=== PATIENT | male | born 1965 | race Caucasian/White ===

== ENCOUNTER 2016-12-03 10:13 | Inpatient (IN) | payer BC ==
[2016-12-03] MEDS ORDERED: SODIUM CHLORIDE 1,000 ML IV STA ×2 (10:41→17:10)
[2016-12-03] MEDS ORDERED: HYDROmorphone HCL CARPU-JECT 2 MG/1 ML DISP.SYRIN IVPUSH ONE (10:42)
[2016-12-03] MEDS ORDERED: ONDANSETRON 4 MG/2 ML VIAL IVPUSH ONE (10:42)
[2016-12-03] MEDS ORDERED: CLINDAMYCIN IVPB 300 MG in DEXTROSE 5%-WATER - 48 ML IVPB ONE (10:43)
[2016-12-03] MEDS ORDERED: DIPHTH,PERTUSS(ACELL),TET 0.5 ML DISP.SYRIN IM ONE (10:43)
--- NOTE | 2016-12-03 10:56 | PDOC ---
History of Present Illness - General Chief Complaint: Wound Stated Complaint: PAIN, PCP SENT Time Seen by Provider: 12/03/16 10:21 History Source: Patient Exam Limitations: No Limitations - History of Present Illness Initial Comments: 12/03/16 10:51 51-year-old male presents to the ED with worsening left third digit swelling redness and discomfort for the past week. Patient states went to [facility] yesterday, had an x-ray to rule out fracture since patient initially had a mechanical fall last week, sustaining a laceration. As per patient x-ray was negative and was given a prescription for clindamycin. As per patient did not fill his medication and she had called Dr. Ashley to notify him of the visit before then referred him to the ER secondary to the redness and discomfort. Patient does have history of liver failure Followed by Dr. Bhakta. Patient also states unknown last tetanus. Timing/Duration: getting worse Severity: moderate Associated Symptoms: reports: fever/chills (chills), nausea/vomiting Past History - Past Medical History Allergies/Adverse Reactions: Allergies Allergy/AdvReac Type Severity Reaction Status Date / Time No Known Allergies Allergy Verified 12/03/16 10:20 Home Medications: Ambulatory Orders Clindamycin [Cleocin -] 300 mg PO TID 12/03/16 Gabapentin 300 mg PO TID 12/03/16 Glimepiride [Amaryl] 1 mg PO DAILY 12/03/16 Nadolol 40 mg PO DAILY 12/03/16 Pantoprazole Sodium [Protonix] 40 mg PO DAILY 12/03/16 Rifaximin [Xifaxan] 550 mg PO BID 12/03/16 Spironolactone 50 mg PO BID 12/03/16 Tramadol HCl 50 mg PO BID PRN 12/03/16 HTN: Yes Liver Disease: (cirrhosis) - Psycho/Social/Smoking Cessation Hx Anxiety: No Suicidal Ideation: No Smoking History: Never smoked Have you smoked in the past 12 months: No Information on smoking cessation initiated: No Hx 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) Drug/Substance Use Hx: No Substance Use Type: None Patient Lives Alone: No Lives with/in: spouse/SO Review of Systems - Review of Systems Is the patient limited Sami proficient: Yes Constitutional: Yes: Chills HEENTM: No: Symptoms Reported Respiratory: No: Symptoms reported Cardiac (ROS): No: Symptoms Reported ABD/GI: Yes: Nausea Musculoskeletal: No: Symptoms Reported Integumentary: Yes: Erythema (with swelling) Neurological: No: Symptoms reported *Physical Exam - Vital Signs Last Vital Signs Temp Pulse Resp BP Pulse Ox 97.7 F 112 H 19 137/82 100 12/03/16 10:17 12/03/16 10:17 12/03/16 10:17 12/03/16 10:12/03/16 10:17 - Physical Exam General Appearance: Yes: Nourished, Appropriately Dressed. No: Apparent Distress HEENT: positive: EOMI, DHEERAJ, Scleral Icterus (R) (slight), Scleral Icterus (L) ( slight) Respiratory/Chest: positive: Lungs Clear, Normal Breath Sounds. negative: Respiratory Distress, Accessory Muscle Use Cardiovascular: positive: Regular Rhythm, Tachycardia. negative: Murmur Gastrointestinal/Abdominal: positive: Soft Integumentary: positive: Other (Patient with erythematous edematous left third digit extending to the dorsal aspect of left hand with streaking midway up. Patient with blanching to the tip of finger but with normal 2+ Refill. Patient unable to flex the finger secondary to swelling and discomfort. Patient with noted 1.5 cm linear healed laceration to the palmar aspect of the dip joint) Neurologic: positive: Motor Strength 5/5 ( ambulatory) ED Treatment Course - LABORATORY CBC & Chemistry Diagram: 12/03/16 11:20 12/03/16 11:55 - RADIOLOGY Radiology Studies Ordered: Category Date Time Status CHEST X-RAY PORTABLE* [RAD] Stat Radiology 12/03/16 10:41 Ordered Medical Decision Making - Medical Decision Making 12/03/16 11:01 Patient status post laceration to left third digit now with concern for cellulitis/sepsis. Patient ordered for septic workup including tetanus analgesics and antiemetics secondary to nausea and vomiting. Will consult Dr. Ashley shortly for admission 12/03/16 12:25 Laboratory Tests 12/03/16 11:20 WBC 14.6 H Hgb 9.4 L Hct 27.5 L Neutrophils % 65.7 Chest x-ray negative for acute findings. Case discussed with Dr. Ashley and states admitted to [facility] inpatient. Patient did receive clindamycin IV and is comfortable regards to pain and nausea. 12/03/16 16:10 Laboratory Tests 12/03/16 12/03/16 11:55 14:30 Sodium 132 L Lactic Acid 2.239 H* Patient ordered for second lactic acid along with another bag of IV fluids. *DC/Admit/Observation/Transfer Diagnosis at time of Disposition: Cellulitis Qualifiers: Site of cellulitis: extremity Site of cellulitis of extremity: finger Laterality: left Qualified Code(s): L03.012 - Cellulitis of left finger Leukocytosis Qualifiers: Leukocytosis type: unspecified Qualified Code(s): D72.829 - Elevated white blood cell count, unspecified - Discharge Dispostion Admit: Yes
--- NOTE | 2016-12-03 11:07 | PDOC ---
[id number] 137/82 100 12/03/16 10:17 12/03/16 10:17 12/03/16 10:17 12/03/16 10:17 12/03/16 10:17 - Physical Exam Comments: 12/03/16 11:07 Pt seen by the Advanced Practice Provider under my direct supervision Pt interviewed and examined Ancillary studies reviewed I agree with plan as outlined by the Advanced Practice Provider ED Treatment Course - LABORATORY CBC & Chemistry Diagram: 12/11/16 06:00 12/12/16 06:00 *DC/Admit/Observation/Transfer Diagnosis at time of Disposition: Cellulitis, Leukocytosis
[2016-12-03] MEDS ORDERED: HYDROmorphone HCL CARPU-JECT 1 MG/1 ML DISP.SYRIN ONE (11:23)
[2016-12-03] MEDS ORDERED: ONDANSETRON 4 MG/2 ML VIAL ONE (11:23)
[2016-12-03 11:35] LABS: BASOPHIL 1.3 % (0-2.0); EOSINOPHIL 2.5 % (0-4.5); MCHC 34.2 g/dl (32.0-35.9); MEAN CELL VOLUME 99.4 fl (80-96); MEAN PLT VOLUME 9.5 fl (7.5-11.1); NEUTROPHILS 65.7 % (42.8-82.8); RDW 14.5 % (11.9-15.9); WHITE BLOOD COUNT 14.6 K/mm3 (4.0-10.0)
[2016-12-03 11:50] LABS: VENOUS BLOOD GAS HCO3 22.8 meq/L (19-25); VENOUS PH 7.39 (7.32-7.42)
[2016-12-03 12:05] LABS: INR 2.07 (0.82-1.09); PROTHROMBIN TIME (PATIENT) 23.1 SEC (9.98-11.88)
[2016-12-03 12:06] LABS: URINE APPEARANCE CLEAR; URINE BILIRUBIN NEGATIVE (NEGATIVE); URINE COLOR YELLOW; URINE GLUCOSE (UA) NEGATIVE (NEGATIVE); URINE KETONE NEGATIVE (NEGATIVE); URINE LEUK ESTERASE NEGATIVE (NEGATIVE); URINE NITRITE NEGATIVE (NEGATIVE); URINE PROTEIN NEGATIVE (NEGATIVE); URINE UROBILINOGEN NEGATIVE E.U./dl (0.2-1.0)
[2016-12-03 12:07] LABS: ACTIVATED PTT 37.5 SECONDS (26.9-34.4)
[2016-12-03 12:28] LABS: URINE BLOOD 3+ (NEGATIVE)
[2016-12-03 12:32] LABS: GRANULAR CASTS 3 /lpf; URINE HYALINE CAST 10 /lpf; URINE RBC 31 /hpf (0-3); URINE WBC 1 /hpf (3-5)
[2016-12-03 13:09] LABS: ALBUMIN 2.2 g/dl (3.4-5.0); ANION GAP 8 (8-16); BILIRUBIN,TOTAL 4.4 mg/dL (0.2-1.0); CALCIUM 8.4 mg/dL (8.5-10.1); CO2 26 mmol/L (21-32); COCKROFT - GAULT 84.32; CREATININE 1.3 mg/dL (0.7-1.3); GLUCOSE,RANDOM 184 mg/dL (74-106); SGOT/AST 65 U/L (15-37); SGPT/ALT 23 U/L (12-78); TOT PROT 8.2 g/dl (6.4-8.2)
[2016-12-03 13:11] LABS: ALK PHOS 151 U/L (45-117); TROPONIN I < 0.02 ng/ml (0.00-0.05)
[2016-12-03 13:23] LABS: PLATELET COUNT 120 K/MM3 (134-434); PLATELET ESTIMATE DECREASED (NORMAL)
[2016-12-03] MEDS ORDERED: LACTULOSE 20 GM/30 ML UDC (FOR ORAL USE ONLY) PO PRN (15:36)
[2016-12-03] MEDS: oxyCODONE HCL 5 MG TABLET PO PRN ×2 (15:41→20:44)
--- NOTE | 2016-12-03 16:40 | CONSULT ---
Consultation: REQUESTING PROVIDER: CONSULT REQUEST: We have been asked to medically evaluate this patient for ( specify). HISTORY OF PRESENT ILLNESS: 51 year old male with a significant PMH of liver failure, cellulitis in lower extremities, HTN presents to the hospital complaining of worsening left third digit swelling, redness and pain for the past week. It got worse over the past 4 days. He fell on the ground one week ago and injured his hands. Left hand with 1 cm laceration on the palm and right hand bruising. Patient states went to [facility] yesterday and was given pain medications and prescription for Clindamycin, which he didn't take. He vomited in the evening and called Dr. Ashley who referred him to ED. Patient's states that he has been hospitalized this year for 2-3 months in [facility] for liver failure and alcohol intoxication. Patient also states unknown last tetanus. He denies fever , chills. He denies abdominal pain, dysuria, nausea, diarrhea, constipation. He denies recent travel, sick contacts and preparing fish. REVIEW OF SYSTEMS: CONSTITUTIONAL: Absent: fever, chills, diaphoresis, generalized weakness, malaise, loss of appetite, weight change HEENT: Absent: rhinorrhea, nasal congestion, throat pain, throat swelling, difficulty swallowing, mouth swelling, ear pain, eye pain, visual changes CARDIOVASCULAR: Absent: chest pain, syncope, palpitations, irregular heart rate, lightheadedness , peripheral edema RESPIRATORY: Absent: cough, shortness of breath, dyspnea with exertion, orthopnea, wheezing, stridor, hemoptysis GASTROINTESTINAL: Absent: abdominal pain, abdominal distension, nausea, vomiting, diarrhea, constipation, melena, hematochezia GENITOURINARY: Absent: dysuria, frequency, urgency, hesitancy, hematuria, flank pain, genital pain MUSCULOSKELETAL: pain and swelling in left hand. Absent:back pain, neck pain SKIN: Absent: rash, itching, pallor HEMATOLOGIC/IMMUNOLOGIC: easy bruising, Absent: easy bleeding, lymphadenopathy, frequent infections ENDOCRINE: Absent: unexplained weight gain, unexplained weight loss, heat intolerance, cold intolerance NEUROLOGIC: Absent: headache, focal weakness or paresthesias, dizziness PSYCHIATRIC: Absent: anxiety, depression PHYSICAL EXAMINATION GENERAL: Awake, alert, and fully oriented, in no acute distress. HEAD: Normal with no signs of trauma. EYES: Pupils equal, round and reactive to light, extraocular movements intact, sclera anicteric, conjunctiva clear. No lid lag. EARS, NOSE, THROAT: Ears normal, nares patent, oropharynx clear without exudates. Moist mucous membranes. NECK: Normal range of motion, supple without lymphadenopathy, JVD, or masses. LUNGS: Breath sounds equal, clear to auscultation bilaterally. No wheezes, and no crackles. No accessory muscle use. HEART: Regular rate and rhythm, normal S1 and S2 without murmur, rub or gallop. ABDOMEN: Soft, nontender, not distended, normoactive bowel sounds, no guarding, no rebound, no masses. Hepatomegaly present. MUSCULOSKELETAL: Normal range of motion at all joints. No bony deformities or tenderness. No CVA tenderness. UPPER EXTREMITIES: 2+ pulses, warm, well-perfused. No cyanosis. No clubbing. Cap refill <2 seconds. Left hand: swelling and redness around 3 finger on dorsal and palmar area, laceration on distal 3rd digit with clotted blood, no crepitus, tenderness to palpation, not able to flex or extend fingers due to pain. Right hand: bruising on palm around 32 and 3rd finger. LOWER EXTREMITIES: 2+ pulses, warm, well-perfused. No calf tenderness. No peripheral edema. NEUROLOGICAL: No facial asymmetry. Normal speech. Gait not observed. PSYCHIATRIC: Cooperative. Good eye contact. Appropriate mood and affect. SKIN: Warm, dry, normal turgor, no rashes or lesions noted. Laboratory Results - last 24 hr 12/03/16 14:30 Lactic Acid 2.239 H* Active Medications Generic Name Dose Route Start Last Admin Trade Name Freq PRN Reason Stop Dose Admin Folic Acid 1 mg 12/04/16 10:00 Folic Acid - PO DAILY VANITA Cefazolin Sodium 50 mls @ 100 mls/hr 12/03/16 18:00 Ancef 1gm Ivpb (Pre-Docked) IVPB Q8H-IV VANITA Lactulose 20 gm 12/03/16 15:36 Cephulac (Oral Use) PO TID PRN CONSTIPATION Nadolol 40 mg 12/04/16 10:00 Corgard - PO DAILY VANITA Oxycodone HCl 5 mg 12/03/16 15:17 12/03/16 15:41 Roxicodone - PO 5 mg Q6H PRN Administration PAIN Pantoprazole Sodium 20 mg 12/04/16 10:00 Protonix - PO DAILY VANITA Rifaximin 550 mg 12/03/16 22:00 Xifaxan - PO BID VANITA Spironolactone 25 mg 12/04/16 10:00 Aldactone - PO DAILY VANITA Thiamine HCl 100 mg 12/03/16 22:00 Vitamin B1 - PO HS [facility] ASSESSMENT/PLAN: 51 year old male with a significant PMH of liver failure, cellulitis in lower extremities, HTN presents to the hospital complaining of worsening left third digit swelling, redness and pain for the past week. It got worse over the past 4 days. He fell on the ground one week ago and injured his hands. He is admitted for cellulitis: Cellulitis of left hand: -we will start vancomycin and Cefepime IV -ESR and CRP history of fall: -x ray of left hand - consultation HTN: -continue home medications Liver cirrhosis: -GI consultation Dispo: We will continue to follow the patient. Thank you for this consultative opportunity. Problem List - Problems (1) Cellulitis Code(s): L03.90 - CELLULITIS, UNSPECIFIED Qualifiers: Site of cellulitis: extremity Site of cellulitis of extremity: finger Laterality: left Qualified Code(s): L03.012 - Cellulitis of left finger (2) Leukocytosis Code(s): D72.829 - ELEVATED WHITE BLOOD CELL COUNT, UNSPECIFIED Qualifiers: Leukocytosis type: unspecified Qualified Code(s): D72.829 - Elevated white blood cell count, unspecified (3) Liver cirrhosis Code(s): K74.60 - UNSPECIFIED CIRRHOSIS OF LIVER Visit type - Emergency Visit Emergency Visit: Yes ED Registration Date: 12/03/16 Care time: The patient presented to the Emergency Department on the above date and was hospitalized for further evaluation of their emergent condition. - New Patient This patient is new to me today: Yes Date on this admission: 12/03/16 - Critical Care Critical Care patient: No
[2016-12-03 16:45] VITALS: BMI 32.3
[2016-12-03] MEDS ORDERED: CEFEPIME HCL 1 GM VIAL (RESTRICTED TO ID) IVPB SCH (16:45)
[2016-12-03] MEDS ORDERED: CEFEPIME 1 GM/100 ML BAG PRE-DOCKED IVPB SCH (17:00)
[2016-12-03] MEDS ORDERED: VANCOMYCIN 1,250 MG in DEXTROSE 5%-WATER - 250 ML IVPB ONE (17:00)
--- NOTE | 2016-12-03 17:01 | PN ---
Teaching Attending Note Name of Resident: Stephanie Marino ATTENDING PHYSICIAN STATEMENT I saw and evaluated the patient. I reviewed the resident's note and discussed the case with the resident. I agree with the resident's findings and plan as documented. SUBJECTIVE: OBJECTIVE: ASSESSMENT AND PLAN: recently hospitialized at [facility] from August to October 31 - initially for cellulitis of both legs and then decompensated liver disease- home for one month tripped and fell on carpet at home last - developed a laceration on his left third finger- over the last several days finger has become swollen and painful-he went to [facility] ER yesterday and was given tramadol and po antibiotics which he vomited his PMD sent him to [facility] ED for eval he reports xray negative given clindamycin in ED hand/finger (3) left hand cellulitis with spread to the palm of his hand- xray of hand hand surgery consult vanco/zosyn esr/crp vanco trough liver cirrhosis- gi evaluation
--- NOTE | 2016-12-03 17:02 | CON.GI ---
Consult Consult Specialty:: GI Referred by:: Dr. Ashley Reason for Consultation:: Liver Cirrhosis - History of Present Illness Chief Complaint: "I have cellulitis on my hand" History of Present Illness: 51M admitted for evaluation of swelling along his left 2nd/3rd digit and his hand. He was seen at [facility] yesterday, placed on PO Abx. but vomited after he took it. He came to [facility] ER for further evaluation. He is followed by my colleague Dr. Deshawn Bhakta given his history of decompensated ETOH Cirrhosis. Dr. Bhakta last saw Mr. Gottlieb in office at which time he recommended Lasic 60mg PO BID, aldactone 25mg PO BID, Xifaxin 550mg PO BID, Lactulose 30cc PO BID, Nadolol 40mg PO daily and MVT/Thiamine/Folate daily. Dr. Bhakta's note also alludes to Mr. Gottlieb arranging to go up to [facility] [place] for liver transplant evaluation however his tells me that they have not heard from them as of yet and that "paperwork needed to be sent up there". Per Dr. Bhakta 's note Mr. Gottlieb's ASP tumor marker was normal in September of 2016 and that his MELD was 24 at one point. Bilirubin from 10/16 was 3.1. He denies abdominal pain, melena. He has never had an upper endoscopy. He does state having had a colonoscopy with Dr. Murguia over 5 years ago that was "OK".. He does describe occasional bright red blood on the toilet paper after strained bowel movements. He says that he has not had a drink since 08/18. - History Source History Provided By: Patient, Family Member, Medical Record Limitations to Obtaining History: No Limitations - Past Medical History Cardio/Vascular: Yes: HTN Gastrointestinal: Yes: Ascites Hepatobiliary: Yes: Cirrhosis (Alcohol induced), Other (History of severe alcoholic hepatitis, hepatic encephalopathy) Dermatology: Yes: Cellulitis (of LE ) - Past Surgical History Additional Surgical History: Pilonidal cyst removal - Alcohol/Substance Use Hx Alcohol Use: Yes (recovering alcoholic) History of Substance Use: reports: None - Smoking History Smoking history: Never smoked Have you smoked in the past 12 months: No - Social History Usual Living Arrangement: With Spouse Occupation: disabled Place of : [facility] History of Recent Travel: No Home Medications - Allergies Allergies/Adverse Reactions: Allergies Allergy/AdvReac Type Severity Reaction Status Date / Time No Known Allergies Allergy Verified 12/03/16 10:20 - Home Medications Home Medications: Ambulatory Orders Clindamycin [Cleocin -] 300 mg PO TID 12/03/16 Gabapentin 300 mg PO TID 12/03/16 Glimepiride [Amaryl] 1 mg PO DAILY 12/03/16 Nadolol 40 mg PO DAILY 12/03/16 Pantoprazole Sodium [Protonix] 40 mg PO DAILY 12/03/16 Rifaximin [Xifaxan] 550 mg PO BID 12/03/16 Spironolactone 50 mg PO BID 12/03/16 Tramadol HCl 50 mg PO BID PRN 12/03/16 Family Disease History - Family Disease History Other Family History: No family history of colorectal cancer or other GI malignancy Review of Systems - Review of Systems Constitutional: denies: Chills, Fever Cardiovascular: denies: Chest Pain Respiratory: denies: SOB Gastrointestinal: reports: Constipation. denies: Abdominal Pain, Diarrhea, Melena, Nausea, Rectal Bleeding, Vomiting, Vomiting Blood Physical Exam-GI Vital Signs: Vital Signs Temperature 97.4 F L 12/03/16 16:35 Pulse Rate 104 H 12/03/16 16:35 Respiratory Rate 18 12/03/16 16:35 Blood Pressure 135/70 12/03/16 16:35 O2 Sat by Pulse Oximetry (%) 99 12/03/16 16:35 Constitutional: Yes: Calm Eyes: Yes: Cataracts. No: Sclera Icterus Cardiovascular: Yes: Tachycardia. No: Murmur Respiratory: No: CTA Bilaterally Gastrointestinal Inspection: No: Distention ...Auscultate: Yes: Normoactive Bowel Sounds ...Palpate: No: Hepatomegaly, Splenomegaly, Tenderness ...Rectal Exam: Yes: Guaiac Positive (light brown stool, no melena) Edema: No (No LE edema) Edema: LUE: 1+ (erythematous 1st/2nd digit left hand) Neurological: Yes: Alert, Oriented. No: Asterixis Psychiatric: Yes: Alert, Oriented Labs: INR, PTT INR 2.07 (0.82-1.09) H 12/03/16 11:20 Hepatic Panel Total Bilirubin 4.4 mg/dL (0.2-1.0) H 12/03/16 11:55 AST 65 U/L (15-37) H 12/03/16 11:55 ALT 23 U/L (12-78) 12/03/16 11:55 Alkaline Phosphatase 151 U/L (45-117) H 12/03/16 11:55 Albumin 2.2 g/dl (3.4-5.0) L 12/03/16 11:55 CBC, BMP 12/03/16 11:20 12/03/16 11:55 MELD: 23 Imaging - Results Chest X-ray: Report Reviewed Assessment/Plan Decompensated alcoholic cirrhosis: MELD 23 Continue Rifaximin 550mg PO BID Aldactone 25mg PO BID Lactulose 30g BID Ordered abdominal US to eval for hepatoma Will need liver transplant eval at [facility] [place] Stressed the need for continued ETOH cessation On Nadolol 40mg daily Needs Q6M AFP tumor marker / Hepatic US LUE cellulitis: Abx per ID Guaiac + stool: No overt bleeding. ? from hemorrhoidal irritation from strained BM's Will need EGD / Colonoscopy for further evaluation as outpatient. Explained to patient and his
--- NOTE | 2016-12-03 17:20 | EKG ---
Test Reason : Blood Pressure : / mmHG Vent. Rate : 101 BPM Atrial Rate : 101 BPM P-R Int : 152 ms QRS Dur : 088 ms QT Int : 370 ms P-R-T Axes : 033 -03 027 degrees QTc Int : 479 ms SINUS TACHYCARDIA INFERIOR INFARCT , AGE UNDETERMINED ABNORMAL ECG NO PREVIOUS ECGS AVAILABLE Confirmed by DAVID RIZZO MD ([id number]) on 12/03/2016 5:19:51 PM Referred By: Confirmed By:DAVID RIZZO MD
[2016-12-03] MEDS ORDERED: CEFAZOLIN (PRE-DOCKED) 50 ML IVPB SCH (18:00)
[2016-12-03] MEDS: PIPERACILLIN/TAZOB 3.375 GM/50 ML PRE-DOCKED IVPB SCH ×2 (19:39→20:44)
[2016-12-03] MEDS: RIFAXIMIN 550 MG TABLET (UD) PO SCH (22:30)
[2016-12-03] MEDS: THIAMINE HCL 100 MG TABLET (FP) PO SCH (22:30)
[2016-12-04] MEDS: oxyCODONE HCL 5 MG TABLET PO PRN ×4 (02:13→20:57)
[2016-12-04] MEDS: PIPERACILLIN/TAZOB 3.375 GM/50 ML PRE-DOCKED IVPB SCH ×3 (03:52→19:14)
[2016-12-04 08:22] LABS: BASOPHIL 0.5 % (0-2.0); EOSINOPHIL 2.6 % (0-4.5); MCH 33.8 pg (25.7-33.7); MCHC 33.7 g/dl (32.0-35.9); MEAN CELL VOLUME 100.3 fl (80-96); MEAN PLT VOLUME 8.4 fl (7.5-11.1); NEUTROPHILS 64.5 % (42.8-82.8); PLATELET COUNT 85 K/MM3 (134-434); RDW 14.4 % (11.9-15.9); WHITE BLOOD COUNT 12.3 K/mm3 (4.0-10.0)
[2016-12-04 08:35] LABS: INR 2.48 (0.82-1.09); PROTHROMBIN TIME (PATIENT) 27.8 SEC (9.98-11.88)
[2016-12-04] MEDS: FOLIC ACID 1 MG TABLET (FP) PO SCH (10:01)
[2016-12-04] MEDS: RIFAXIMIN 550 MG TABLET (UD) PO SCH ×2 (10:01→21:53)
[2016-12-04] MEDS: PANTOPRAZOLE 20 MG TABLET (FP) PO SCH (10:01)
[2016-12-04] MEDS: SPIRONOLACTONE 25 MG TABLET (FP) PO SCH (10:01)
[2016-12-04] MEDS ORDERED: PT OWN MED DRAWER 7, Y5N ONE ×2 (10:03→14:34)
--- NOTE | 2016-12-04 10:07 | HP ---
Admitting History and Physical - Primary Care Physician PCP: Prakash Ashley - Admission Chief Complaint: third digit swelling and pain History of Present Illness: 51-year-old male presents to the ED with worsening left third digit swelling redness and discomfort for the past week. Patient states went to [facility] yesterday, had an x-ray to rule out fracture since patient initially had a mechanical fall last week, sustaining a laceration. As per patient x-ray was negative and was given a prescription for clindamycin. As per patient did not fill his medication and she had called Dr. Ashley to notify him of the visit before then referred him to the ER secondary to the redness and discomfort. Patient does have history of liver failure( decompensated ETOH cirrhosis) Followed by Dr. Bhakta. Patient also states unknown last tetanus. Timing/Duration: getting worse Severity: moderate Associated Symptoms: reports: fever/chills (chills), nausea/vomiting in ER noted to have elevated WBC got clindamycin and vancomycin elevated lactic acid History Source: Patient, Medical Record - Past Medical History Cardiovascular: Yes: HTN Gastrointestinal: Yes: Ascites Hepatobiliary: Yes: Cirrhosis (Alcohol induced), Other (History of severe alcoholic hepatitis, hepatic encephalopathy) Dermatology: Yes: Cellulitis (of LE ) - Smoking History Smoking history: Never smoked Have you smoked in the past 12 months: No - Alcohol/Substance Use Hx Alcohol Use: Yes (recovering alcoholic) History of Substance Use: reports: None - Social History Occupation: disabled History of Recent Travel: No Home Medications - Allergies Allergies/Adverse Reactions: Allergies Allergy/AdvReac Type Severity Reaction Status Date / Time No Known Allergies Allergy Verified 12/03/16 10:20 - Home Medications Home Medications: Ambulatory Orders Clindamycin [Cleocin -] 300 mg PO TID 12/03/16 Gabapentin 300 mg PO TID 12/03/16 Glimepiride [Amaryl] 1 mg PO DAILY 12/03/16 Nadolol 40 mg PO DAILY 12/03/16 Pantoprazole Sodium [Protonix] 40 mg PO DAILY 12/03/16 Rifaximin [Xifaxan] 550 mg PO BID 12/03/16 Spironolactone 50 mg PO BID 12/03/16 Tramadol HCl 50 mg PO BID PRN 12/03/16 Family Disease History - Family Disease History Other Family History: No family history of colorectal cancer or other GI malignancy Review of Systems - Review of Systems Musculoskeletal: reports: Extremity Pain (third digit pain) Physical Examination Vital Signs: Vital Signs Temperature 98.6 F 12/04/16 07:05 Pulse Rate 120 H 12/04/16 07:05 Respiratory Rate 20 12/04/16 07:05 Blood Pressure 112/58 12/04/16 07:05 O2 Sat by Pulse Oximetry (%) 99 12/03/16 21:00 Eyes: Yes: Other (scleral icterus) Cardiovascular: Yes: Regular Rate and Rhythm, S1, S2, Other Respiratory: Yes: CTA Bilaterally, Diminished (at bases) Gastrointestinal: Yes: Ascites, Distention Extremities: Yes: Other (venous stasis changes left hand third digit swollen erythematous warm to touch) Labs: CBC, BMP 12/04/16 06:30 Imaging - Results Ultrasound: Report Reviewed (liver cirhosis with spleenomegaly and asictes) Problem List - Problems (1) Cellulitis Assessment/Plan: ID eval noted iv abx monitor ESR Code(s): L03.90 - CELLULITIS, UNSPECIFIED Qualifiers: Site of cellulitis: extremity Site of cellulitis of extremity: finger Laterality: left Qualified Code(s): L03.012 - Cellulitis of left finger (2) Liver cirrhosis Assessment/Plan: gi saw patient aldactone lactulose nadalol rifaximin ultrasound shows liver cirrhosis and spleenomegaly patient needs to FU regarding liver transplant at [facility] Code(s): K74.60 - UNSPECIFIED CIRRHOSIS OF LIVER
[2016-12-04] MEDS: ACETAMINOPHEN 325 MG TABLET (FP) PO PRN ×2 (10:34→20:58)
--- NOTE | 2016-12-04 10:38 | CONSULT ---
Consult - text type - Consultation Consultation Note: FULL CONSULT DICTATED IMP: CELLULITIS RIGHT HAND PLAN: IV ABX PER ID, ELEVATION, WILL FOLLOW
--- NOTE | 2016-12-04 10:51 | EKG ---
Test Reason : Blood Pressure : / mmHG Vent. Rate : 121 BPM Atrial Rate : 121 BPM P-R Int : 144 ms QRS Dur : 086 ms QT Int : 324 ms P-R-T Axes : 063 023 075 degrees QTc Int : 460 ms SINUS TACHYCARDIA POSSIBLE INFERIOR INFARCT (CITED ON OR BEFORE 03-DEC-2016) NONSPECIFIC ST ABNORMALITY Confirmed by JESSICA LE MD ([id number]) on 12/04/2016 10:51:41 AM Referred By: EDEN BALLARD Confirmed By:JESSICA LE MD
[2016-12-04] MEDS: NADOLOL 40 MG TABLET (FP) PO SCH (11:22)
[2016-12-04 12:13] LABS: ALBUMIN 1.8 g/dl (3.4-5.0); ANION GAP 10 (8-16); BILIRUBIN,TOTAL 4.5 mg/dL (0.2-1.0); CALCIUM 7.9 mg/dL (8.5-10.1); CO2 23 mmol/L (21-32); COCKROFT - GAULT 121.79; CREATININE 0.9 mg/dL (0.7-1.3); GLUCOSE,RANDOM 162 mg/dL (74-106); SGOT/AST 59 U/L (15-37); SGPT/ALT 21 U/L (12-78)
[2016-12-04 12:15] LABS: ALK PHOS 109 U/L (45-117)
--- NOTE | 2016-12-04 13:30 | CONS ---
DATE OF CONSULTATION: 12/04/2016 HISTORY: The patient is a 51-year-old male status post fall about 1 week ago and sustained laceration on his right 3rd finger. The patient did not do anything about it until it got much more painful and swollen and went to [facility] yesterday. They gave him some p.o. antibiotics and sent him home. At the request of his medical doctor, he was sent to [facility] Emergency Room where he was found to have a very significant cellulitis and was admitted for IV antibiotics. The patient was placed on IV antibiotics yesterday and states that may be it is slightly better today. The patient is a [id number] diabetic. PAST MEDICAL HISTORY: Also significant for liver failure. He has had other episodes of cellulitis in his lower extremities, especially his right knee. He has a history of hypertension as well. The patient is right-hand dominant. PHYSICAL EXAMINATION: The patient has significant swelling of his left 3rd finger. He has an area of most intense cellulitis on the dorsum of his 3rd MCP towards the PIP joint. He does have erythema on the palmar surface of his MCP region towards the PIP region. No streaking or lymphangitis. Some of the cellulitis has spread towards the 2nd and 4th fingers closing in on their MCP regions both volarly and dorsally as well. He has moderate swelling dorsally. He has no deep space tenderness inside the hand. He can independently flex and extend the 3rd DIP, PIP, and MCP but only very minimally. He has no tenderness along the flexor sheath over the middle phalanx but some significant tenderness both dorsally and palmar surface over the proximal phalanx region. Good motion of the other fingers and of the wrist. Brisk capillary refill. The patient has a transverse palmar sided laceration at the level of the distal aspect of the middle phalanx, which appears to be healing uneventfully with no drainage and good sensation distally to that region. X-rays of the hand show no fractures, dislocation, or lymphoblastic lesions. WBC upon admission was 15, and it is now 12. The patient has blood cultures that are pending. IMPRESSION: Left 3rd finger and hand cellulitis. No evidence of a deep space infection at this time. PLAN: The patient will be placed on IV antibiotics as prescribed by Infectious Disease. Continue with elevation. I will follow the patient. FRAN AMARAL M.D. JONATHAN/[id number]
--- NOTE | 2016-12-04 13:40 | PN ---
Progress Note (short form) - Note Progress Note: hand about the same Vital Signs Period Temp Pulse Resp BP Sys/Palmer Pulse Ox Last 24 Hr 97.4 F-98.6 F 104-120 18-20 112-135/58-70 99-99 cor-rrr lungs clear abd soft,nt ext swelling of finger, erythema unchanged xray ?fracture Laboratory Tests 12/04/16 12/04/16 12/04/16 06:00 06:30 06:30 ESR 65 H C-Reactive Protein 1.7 H Random Vancomycin 6.457 CBC, BMP 12/04/16 06:30 12/04/16 06:30 Microbiology 12/03/16 11:44 Blood - Peripheral Venous Blood Culture - Preliminary NO GROWTH OBTAINED AFTER 24 HOURS, INCUBATION TO CONTINUE FOR 4 DAYS. 12/03/16 11:44 Blood - Peripheral Venous Blood Culture - Preliminary NO GROWTH OBTAINED AFTER 24 HOURS, INCUBATION TO CONTINUE FOR 4 DAYS. 12/03/16 11:44 Urine - Urine Clean Catch Urine Culture - Final Current Medications Acetaminophen (Tylenol -) 325 mg PO Q6H PRN PRN Reason: FEVER OR PAIN Last Admin: 12/04/16 10:34 Dose: 325 mg Folic Acid (Folic Acid -) 1 mg PO DAILY [facility] Last Admin: 12/04/16 10:01 Dose: 1 mg Vancomycin HCl 1,250 mg/ (Dextrose) 250 mls @ 250 mls/hr IVPB BID VANITA PRN Reason: Protocol Lactulose (Cephulac (Oral Use)) 20 gm PO BID COUNT INCLUDES [facility] Nadolol (Corgard -) 40 mg PO DAILY COUNT INCLUDES [facility] Last Admin: 12/04/16 11:22 Dose: 40 mg Oxycodone HCl (Roxicodone -) 5 mg PO Q6H PRN PRN Reason: PAIN Last Admin: 12/04/16 08:31 Dose: 5 mg Pantoprazole Sodium (Protonix -) 20 mg PO DAILY [facility]CLUDES [facility] Last Admin: 12/04/16 10:01 Dose: 20 mg Piperacillin Sod/Tazobactam Sod (Zosyn 3.375gm Ivpb (Pre-Docked)) 3.375 gm IVPB Q8H-IV VANITA PRN Reason: Protocol Last Admin: 12/04/16 10:02 Dose: 3.375 gm Rifaximin (Xifaxan -) 550 mg PO BID COUNT INCLUDES [facility] Last Admin: 12/04/16 10:01 Dose: 550 mg Spironolactone (Aldactone -) 25 mg PO DAILY [facility] Last Admin: 12/04/16 10:01 Dose: 25 mg Thiamine HCl (Vitamin B1 -) 100 mg PO HS COUNT [facility]CLUDES [facility] Last Admin: 12/03/16 22:30 Dose: 100 mg a/p cellullitis of the finger ?fracture needs ortho f/u continue vanco/zosyn f/u labs, vanco levels f/u cultures liver cirrhosis Problem List - Problems (1) Cellulitis Code(s): L03.90 - CELLULITIS, UNSPECIFIED Qualifiers: Site of cellulitis: extremity Site of cellulitis of extremity: finger Laterality: left Qualified Code(s): L03.012 - Cellulitis of left finger (2) Liver cirrhosis Code(s): K74.60 - UNSPECIFIED CIRRHOSIS OF LIVER
--- NOTE | 2016-12-04 16:41 | PN ---
GI Progress Note Subjective: GI NOte: left hand cellulitis improving. mentally clear. No overt bleeding to explain decrease in Hct. No abdominal pain. Remains jaundiced. Ascites on sonogram - Objective Vital Signs: Vital Signs Temperature 98.2 F 12/04/16 15:32 Pulse Rate 88 12/04/16 15:32 Respiratory Rate 20 12/04/16 15:32 Blood Pressure 120/66 12/04/16 15:32 O2 Sat by Pulse Oximetry (%) 99 12/04/16 09:00 CBC,CMP WBC 12.3 K/mm3 (4.0-10.0) H 12/04/16 06:30 RBC 2.21 M/mm3 (4.00-5.60) L 12/04/16 06:30 Hgb 7.5 GM/dL (11.7-16.9) L D 12/04/16 06:30 Hct 22.2 % (35.4-49) L D 12/04/16 06:30 MCV 100.3 fl (80-96) H 12/04/16 06:30 MCHC 33.7 g/dl (32.0-35.9) 12/04/16 06:30 RDW 14.4 % (11.9-15.9) 12/04/16 06:30 Plt Count 85 K/MM3 (134-434) L D 12/04/16 06:30 MPV 8.4 fl (7.5-11.1) D 12/04/16 06:30 Neutrophils % 64.5 % (42.8-82.8) 12/04/16 06:30 Lymphocytes % 22.6 % (8-40) 12/04/16 06:30 Monocytes % 9.8 % (3.8-10.2) 12/04/16 06:30 Eosinophils % 2.6 % (0-4.5) 12/04/16 06:30 Basophils % 0.5 % (0-2.0) 12/04/16 06:30 Platelet Estimate Decreased (NORMAL) 12/03/16 11:20 Platelet Comment No clumping noted 12/03/16 11:20 ESR 65 mm/hr (0-20) H 12/04/16 06:30 Sodium 134 mmol/L (136-145) L 12/04/16 06:30 Potassium 4.4 mmol/L (3.5-5.1) 12/04/16 06:30 Chloride 101 mmol/L (98-107) 12/04/16 06:30 Carbon Dioxide 23 mmol/L (21-32) 12/04/16 06:30 Anion Gap 10 (8-16) 12/04/16 06:30 BUN 19 mg/dL (7-18) H D 12/04/16 06:30 Creatinine 0.9 mg/dL (0.7-1.3) D 12/04/16 06:30 Creat Clearance w eGFR > 60 (>60) 12/04/16 06:30 POC Glucometer 180 UNITS (()) 12/04/16 07:04 Random Glucose 162 mg/dL (74-106) H 12/04/16 06:30 Lactic Acid 2.391 mmol/L (0.4-2.0) H* 12/03/16 19:00 Calcium 7.9 mg/dL (8.5-10.1) L 12/04/16 06:30 Total Bilirubin 4.5 mg/dL (0.2-1.0) H 12/04/16 06:30 AST 59 U/L (15-37) H 12/04/16 06:30 ALT 21 U/L (12-78) 12/04/16 06:30 Alkaline Phosphatase 109 U/L (45-117) D 12/04/16 06:30 Creatine Kinase 40 IU/L (39-308) 12/03/16 11:55 Troponin I < 0.02 ng/ml (0.00-0.05) 12/03/16 11:55 C-Reactive Protein 1.7 MG/DL (0.00-0.3) H 12/04/16 06:30 B-Natriuretic Peptide 1066.95 pg/ml (5-125) H 12/04/16 06:30 Total Protein 7.0 g/dl (6.4-8.2) 12/04/16 06:30 Albumin 1.8 g/dl (3.4-5.0) L 12/04/16 06:30 Constitutional: No Distress Eyes: Yes: Sclera Icterus HENT: Yes: Normocephalic Gastrointestinal Inspection: Yes: Distention ...Auscultate: Yes: Normoactive Bowel Sounds ...Palpate: Yes: Soft, Other (nontender) Labs: CBC, BMP 12/04/16 06:30 12/04/16 06:30 INR, PTT INR 2.48 (0.82-1.09) H 12/04/16 06:30 Laboratory Tests 12/03/16 12/04/16 12/04/16 11:20 06:30 06:30 Hgb 9.4 L 7.5 L D Plt Count 120 L 85 L D BUN 19 H D Creatinine 0.9 D Total Bilirubin 4.5 H Albumin 1.8 L Assessment/Plan Alcoholic cirrhosis with jaundice, ascites, thrombocytopenia and h/o encephalopathy that appears under control. Will increase spironolactone to BID. Dr Bhakta will be covering this weekend.
[2016-12-04] MEDS: VANCOMYCIN 1,250 MG in DEXTROSE 5%-WATER - 250 ML IVPB SCH (17:38)
[2016-12-04] MEDS: LACTULOSE 20 GM/30 ML UDC (FOR ORAL USE ONLY) PO SCH (21:53)
[2016-12-04] MEDS: THIAMINE HCL 100 MG TABLET (FP) PO SCH (21:53)
[2016-12-05] MEDS: PIPERACILLIN/TAZOB 3.375 GM/50 ML PRE-DOCKED IVPB SCH ×3 (01:25→17:52)
[2016-12-05] MEDS: VANCOMYCIN 1,250 MG in DEXTROSE 5%-WATER - 250 ML IVPB SCH ×2 (01:33→14:34)
[2016-12-05] MEDS: ACETAMINOPHEN 325 MG TABLET (FP) PO PRN ×4 (03:17→21:26)
[2016-12-05] MEDS: oxyCODONE HCL 5 MG TABLET PO PRN ×4 (03:18→21:27)
[2016-12-05 07:43] LABS: MCH 34.1 pg (25.7-33.7); MCHC 34.1 g/dl (32.0-35.9); MEAN CELL VOLUME 99.9 fl (80-96); PLATELET COUNT 89 K/MM3 (134-434); RDW 14.6 % (11.9-15.9); WHITE BLOOD COUNT 11.1 K/mm3 (4.0-10.0)
[2016-12-05 07:57] LABS: INR 2.23 (0.82-1.09); PROTHROMBIN TIME (PATIENT) 24.9 SEC (9.98-11.88)
[2016-12-05 08:27] LABS: CALCIUM 8.4 mg/dL (8.5-10.1); COCKROFT - GAULT 139.2; CREATININE 0.8 mg/dL (0.7-1.3)
[2016-12-05 08:28] LABS: ALBUMIN 1.8 g/dl (3.4-5.0); BILIRUBIN,DIRECT 1.9 mg/dL (0.0-0.2); BILIRUBIN,TOTAL 4.9 mg/dL (0.2-1.0); TOT PROT 7.3 g/dl (6.4-8.2)
[2016-12-05] MEDS: FOLIC ACID 1 MG TABLET (FP) PO SCH (09:19)
[2016-12-05] MEDS: LACTULOSE 20 GM/30 ML UDC (FOR ORAL USE ONLY) PO SCH ×2 (09:19→21:27)
[2016-12-05] MEDS: RIFAXIMIN 550 MG TABLET (UD) PO SCH ×2 (09:19→21:26)
[2016-12-05] MEDS: PANTOPRAZOLE 20 MG TABLET (FP) PO SCH (09:19)
[2016-12-05] MEDS: SPIRONOLACTONE 25 MG TABLET (FP) PO SCH (09:19)
[2016-12-05] MEDS ORDERED: PT OWN MED DRAWER 7, Y5N ONE ×2 (09:22→13:47)
[2016-12-05] MEDS: NADOLOL 40 MG TABLET (FP) PO SCH (09:23)
--- NOTE | 2016-12-05 09:37 | PN ---
Progress Note (short form) - Note Progress Note: ID Vancomycin and Zosyn Seen by Dr Hand Patient complaint related to hand pain Selected Entries 12/05/16 06:00 Temperature 97.9 F Pulse Rate 97 H Respiratory 18 Rate Blood Pressure 125/70 Hand swelling and finger with pustules noted no drainage seen erythema Tense swelling finger Report positive blood culture GPC clusters ?? Assessment Hand cellulitis Blood culture positive GPC clusters Cirrhosis Alcohol history Plan Continue Zosyn and Vanco Vanco level Await c/s Discussed Dr Gabi Rodgers MD
[2016-12-05] MEDS ORDERED: FUROSEMIDE 40 MG/4 ML INJECTABLE VIAL IVPUSH ONE ×2 (11:56→12:15)
--- NOTE | 2016-12-05 12:00 | PN ---
Progress Note, Physician History of Present Illness: C/O ITCHING - Current Medication List Current Medications: Active Medications Acetaminophen (Tylenol -) 325 mg PO Q6H PRN PRN Reason: FEVER OR PAIN Last Admin: 12/05/16 09:22 Dose: 325 mg Folic Acid (Folic Acid -) 1 mg PO DAILY [facility] Last Admin: 12/05/16 09:19 Dose: 1 mg Furosemide (Lasix Injection -) 40 mg IVPUSH ONCE ONE Stop: 12/05/16 11:57 Furosemide (Lasix Injection -) 40 mg IVPUSH ONCE ONE Stop: 12/05/16 11:57 Hydroxyzine HCl (Atarax -) 10 mg PO Q6H PRN PRN Reason: FOR ITCHING Vancomycin HCl 1,250 mg/ (Dextrose) 250 mls @ 250 mls/hr IVPB BID@0200,1400 VANITA PRN Reason: Protocol Last Admin: 12/05/16 01:33 Dose: 250 mls/hr Lactulose (Cephulac (Oral Use)) 20 gm PO BID [facility] Last Admin: 12/05/16 09:19 Dose: Not Given Nadolol (Corgard -) 40 mg PO DAILY [facility] Last Admin: 12/05/16 09:23 Dose: 40 mg Oxycodone HCl (Roxicodone -) 5 mg PO Q6H PRN PRN Reason: PAIN Last Admin: 12/05/16 09:18 Dose: 5 mg Pantoprazole Sodium (Protonix -) 20 mg PO DAILY [facility] Last Admin: 12/05/16 09:19 Dose: 20 mg Piperacillin Sod/Tazobactam Sod (Zosyn 3.375gm Ivpb (Pre-Docked)) 3.375 gm IVPB Q8H-IV VANITA PRN Reason: Protocol Last Admin: 12/05/16 09:19 Dose: 3.375 gm Rifaximin (Xifaxan -) 550 mg PO BID [facility] Last Admin: 12/05/16 09:19 Dose: 550 mg Spironolactone (Aldactone -) 25 mg PO DAILY [facility] Last Admin: 12/05/16 09:19 Dose: 25 mg Thiamine HCl (Vitamin B1 -) 100 mg PO HS [facility] Last Admin: 12/04/16 21:53 Dose: 100 mg - Objective Vital Signs: Vital Signs Temperature 97.9 F 12/05/16 06:00 Pulse Rate 101 H 12/05/16 09:27 Respiratory Rate 18 12/05/16 06:00 Blood Pressure 119/68 12/05/16 09:27 O2 Sat by Pulse Oximetry (%) 99 12/05/16 09:00 Cardiovascular: Yes: Regular Rate and Rhythm Respiratory: Yes: Regular, CTA Bilaterally Gastrointestinal: Yes: Normal Bowel Sounds, Soft, Ascites, Distention Labs: CBC, BMP 12/05/16 06:00 12/05/16 06:00 INR, PTT INR 2.23 (0.82-1.09) H 12/05/16 06:00 Problem List - Problems (1) Cellulitis Assessment/Plan: IV ABX ID AND ORTHO ON CASE Code(s): L03.90 - CELLULITIS, UNSPECIFIED Qualifiers: Site of cellulitis: extremity Site of cellulitis of extremity: finger Laterality: left Qualified Code(s): L03.012 - Cellulitis of left finger (2) Liver cirrhosis Assessment/Plan: gi saw patient aldactone lactulose nadalol rifaximin ultrasound shows liver cirrhosis and spleenomegaly patient needs to FU regarding liver transplant at [facility] Code(s): K74.60 - UNSPECIFIED CIRRHOSIS OF LIVER (3) Anemia Assessment/Plan: TRANSFUSE PRBC FOLLOW LABS Code(s): D64.9 - ANEMIA, UNSPECIFIED (4) Pruritic condition Code(s): L29.9 - PRURITUS, UNSPECIFIED
[2016-12-05] MEDS: hydrOXYzine HCL 10 MG TABLET PO PRN (13:48)
[2016-12-05] MEDS: THIAMINE HCL 100 MG TABLET (FP) PO SCH (21:26)
[2016-12-06] MEDS: VANCOMYCIN 1,250 MG in DEXTROSE 5%-WATER - 250 ML IVPB SCH ×2 (01:23→14:42)
[2016-12-06] MEDS: PIPERACILLIN/TAZOB 3.375 GM/50 ML PRE-DOCKED IVPB SCH ×3 (04:13→17:40)
[2016-12-06] MEDS: oxyCODONE HCL 5 MG TABLET PO PRN ×4 (04:13→22:16)
--- NOTE | 2016-12-06 07:14 | PN ---
Progress Note, Physician History of Present Illness: C/O ITCHING - Current Medication List Current Medications: Active Medications Acetaminophen (Tylenol -) 325 mg PO Q6H PRN PRN Reason: FEVER OR PAIN Last Admin: 12/05/16 21:26 Dose: 325 mg Folic Acid (Folic Acid -) 1 mg PO DAILY [facility] Last Admin: 12/05/16 09:19 Dose: 1 mg Hydroxyzine HCl (Atarax -) 10 mg PO Q6H PRN PRN Reason: FOR ITCHING Last Admin: 12/05/16 13:48 Dose: 10 mg Vancomycin HCl 1,250 mg/ (Dextrose) 250 mls @ 250 mls/hr IVPB BID@0200,1400 [facility] PRN Reason: Protocol Last Admin: 12/06/16 01:23 Dose: 250 mls/hr Lactulose (Cephulac (Oral Use)) 20 gm PO BID [facility] Last Admin: 12/05/16 21:27 Dose: Not Given Nadolol (Corgard -) 40 mg PO DAILY [facility] Last Admin: 12/05/16 09:23 Dose: 40 mg Oxycodone HCl (Roxicodone -) 5 mg PO Q6H PRN PRN Reason: PAIN Last Admin: 12/06/16 04:13 Dose: 5 mg Pantoprazole Sodium (Protonix -) 20 mg PO DAILY [facility] Last Admin: 12/05/16 09:19 Dose: 20 mg Piperacillin Sod/Tazobactam Sod (Zosyn 3.375gm Ivpb (Pre-Docked)) 3.375 gm IVPB Q8H-IV [facility]ITA PRN Reason: Protocol Last Admin: 12/06/16 04:13 Dose: 3.375 gm Rifaximin (Xifaxan -) 550 mg PO BID [facility] Last Admin: 12/05/16 21:26 Dose: 550 mg Spironolactone (Aldactone -) 25 mg PO DAILY [facility] Last Admin: 12/05/16 09:19 Dose: 25 mg Thiamine HCl (Vitamin B1 -) 100 mg PO HS [facility] Last Admin: 12/05/16 21:26 Dose: 100 mg - Objective Vital Signs: Vital Signs Temperature 98.8 F 12/05/16 17:17 Pulse Rate 88 12/05/16 17:17 Respiratory Rate 18 12/05/16 17:17 Blood Pressure 126/69 12/05/16 17:17 O2 Sat by Pulse Oximetry (%) 99 12/05/16 09:00 Cardiovascular: Yes: Regular Rate and Rhythm Respiratory: Yes: Regular, CTA Bilaterally Gastrointestinal: Yes: Normal Bowel Sounds, Soft, Distention Extremities: Yes: Erythema (and swelling) Labs: CBC, BMP 12/05/16 06:00 12/05/16 06:00 INR, PTT INR 2.23 (0.82-1.09) H 12/05/16 06:00 Problem List - Problems (1) Cellulitis Assessment/Plan: IV ABX ID AND ORTHO ON CASE Code(s): L03.90 - CELLULITIS, UNSPECIFIED Qualifiers: Site of cellulitis: extremity Site of cellulitis of extremity: finger Laterality: left Qualified Code(s): L03.012 - Cellulitis of left finger (2) Liver cirrhosis Assessment/Plan: gi saw patient aldactone lactulose nadalol rifaximin ultrasound shows liver cirrhosis and spleenomegaly patient needs to FU regarding liver transplant at [facility] Code(s): K74.60 - UNSPECIFIED CIRRHOSIS OF LIVER (3) Anemia Assessment/Plan: S/P TRANSFUSION PRBC FOLLOW LABS Code(s): D64.9 - ANEMIA, UNSPECIFIED (4) Pruritic condition Assessment/Plan: atarax prn Code(s): L29.9 - PRURITUS, UNSPECIFIED
--- NOTE | 2016-12-06 07:57 | PN ---
Progress Note, Physician Chief Complaint: ID Vancomycin and Zosyn No complaints - Current Medication List Current Medications: Active Medications Acetaminophen (Tylenol -) 325 mg PO Q6H PRN PRN Reason: FEVER OR PAIN Last Admin: 12/05/16 21:26 Dose: 325 mg Folic Acid (Folic Acid -) 1 mg PO DAILY [facility] Last Admin: 12/05/16 09:19 Dose: 1 mg Hydroxyzine HCl (Atarax -) 10 mg PO Q6H PRN PRN Reason: FOR ITCHING Last Admin: 12/05/16 13:48 Dose: 10 mg Vancomycin HCl 1,250 mg/ (Dextrose) 250 mls @ 250 mls/hr IVPB BID@0200,1400 VANITA PRN Reason: Protocol Last Admin: 12/06/16 01:23 Dose: 250 mls/hr Lactulose (Cephulac (Oral Use)) 20 gm PO BID [facility] Last Admin: 12/05/16 21:27 Dose: Not Given Nadolol (Corgard -) 40 mg PO DAILY [facility] Last Admin: 12/05/16 09:23 Dose: 40 mg Oxycodone HCl (Roxicodone -) 5 mg PO Q6H PRN PRN Reason: PAIN Last Admin: 12/06/16 04:13 Dose: 5 mg Pantoprazole Sodium (Protonix -) 20 mg PO DAILY [facility] Last Admin: 12/05/16 09:19 Dose: 20 mg Piperacillin Sod/Tazobactam Sod (Zosyn 3.375gm Ivpb (Pre-Docked)) 3.375 gm IVPB Q8H-IV [facility]ANITA PRN Reason: Protocol Last Admin: 12/06/16 04:13 Dose: 3.375 gm Rifaximin (Xifaxan -) 550 mg PO BID [facility] Last Admin: 12/05/16 21:26 Dose: 550 mg Spironolactone (Aldactone -) 25 mg PO DAILY [facility] Last Admin: 12/05/16 09:19 Dose: 25 mg Thiamine HCl (Vitamin B1 -) 100 mg PO HS [facility] Last Admin: 12/05/16 21:26 Dose: 100 mg - Objective Vital Signs: Vital Signs Temperature 98.7 F 12/06/16 07:31 Pulse Rate 97 H 12/06/16 07:31 Respiratory Rate 18 12/06/16 07:31 Blood Pressure 134/69 12/06/16 07:31 O2 Sat by Pulse Oximetry (%) 99 12/05/16 09:00 Extremities: Yes: Other (Decreased swelling redness of hand and finger though finger still quite tense) Labs: CBC, BMP 12/05/16 06:00 12/05/16 06:00 INR, PTT INR 2.23 (0.82-1.09) H 12/05/16 06:00 Assessment/Plan Microbiology 12/03/16 11:44 Blood - Peripheral Venous Blood Culture - Preliminary Pending Organism 12/03/16 11:44 Blood - Peripheral Venous Blood Culture - Preliminary NO GROWTH OBTAINED AFTER 24 HOURS, INCUBATION TO CONTINUE FOR 4 DAYS. Laboratory Tests 12/04/16 12/05/16 12/05/16 06:30 06:00 06:00 WBC 11.1 H Hgb 7.8 L Hct 23.0 L Plt Count 89 L ESR 65 H BUN Creatinine Lactic Acid 2.031 H* Direct Bilirubin AST ALT Alkaline Phosphatase Albumin Vancomycin Trough 12/05/16 12/05/16 12/05/16 06:00 06:00 13:00 WBC Hgb Hct Plt Count ESR BUN 17 Creatinine 0.8 Lactic Acid Direct Bilirubin 1.9 H AST 59 H ALT 22 Alkaline Phosphatase 118 H Albumin 1.8 L Vancomycin Trough 16.916 H* Assessment SSTI infection hand and finger improving 1/4 bottles GPC ?? Cirrhosis Anemia Plan Continue antibiotic Blood transfused Vanco level tomorrow Vishal WOODWARD
[2016-12-06 08:34] LABS: BASOPHIL 0.6 % (0-2.0); EOSINOPHIL 2.6 % (0-4.5); MCH 32.8 pg (25.7-33.7); MCHC 34.5 g/dl (32.0-35.9); MEAN CELL VOLUME 95.3 fl (80-96); MEAN PLT VOLUME 7.8 fl (7.5-11.1); NEUTROPHILS 65.5 % (42.8-82.8); PLATELET COUNT 91 K/MM3 (134-434); RDW 17.8 % (11.9-15.9); WHITE BLOOD COUNT 11.7 K/mm3 (4.0-10.0)
--- NOTE | 2016-12-06 08:47 | PN ---
Progress Note (short form) - Note Progress Note: MARKED IMPROVEMENT DECREASED SWELLING AND REDNESS PLAN: CONTINUE IV ABX PER ID
[2016-12-06 08:48] LABS: ALBUMIN 1.8 g/dl (3.4-5.0); CALCIUM 8.2 mg/dL (8.5-10.1)
[2016-12-06 08:54] LABS: ALK PHOS 115 U/L (45-117); ANION GAP 13 (8-16); BILIRUBIN,TOTAL 5.2 mg/dL (0.2-1.0); CO2 24 mmol/L (21-32); COCKROFT - GAULT 140.74; CREATININE 0.8 mg/dL (0.7-1.3); GLUCOSE,RANDOM 123 mg/dL (74-106); SGOT/AST 56 U/L (15-37); SGPT/ALT 20 U/L (12-78); TOT PROT 7.2 g/dl (6.4-8.2)
[2016-12-06] MEDS ORDERED: PT OWN MED DRAWER 7, Y5N ONE ×2 (09:03→14:07)
[2016-12-06] MEDS: SPIRONOLACTONE 25 MG TABLET (FP) PO SCH (09:08)
[2016-12-06] MEDS: FOLIC ACID 1 MG TABLET (FP) PO SCH (09:08)
[2016-12-06] MEDS: NADOLOL 40 MG TABLET (FP) PO SCH (09:08)
[2016-12-06] MEDS: RIFAXIMIN 550 MG TABLET (UD) PO SCH ×2 (09:08→22:15)
[2016-12-06] MEDS: LACTULOSE 20 GM/30 ML UDC (FOR ORAL USE ONLY) PO SCH ×2 (09:09→22:15)
[2016-12-06] MEDS: PANTOPRAZOLE 20 MG TABLET (FP) PO SCH (09:09)
[2016-12-06] MEDS: FUROSEMIDE 40 MG TABLET (FP) PO SCH (18:30)
[2016-12-06] MEDS: ACETAMINOPHEN 325 MG TABLET (FP) PO PRN (18:30)
[2016-12-06] MEDS: THIAMINE HCL 100 MG TABLET (FP) PO SCH (22:15)
[2016-12-06] MEDS: HYDROCORTISONE 1% TOPICAL CREAM 30 GM TUBE TP SCH (22:16)
[2016-12-07] MEDS: PIPERACILLIN/TAZOB 3.375 GM/50 ML PRE-DOCKED IVPB SCH ×3 (01:04→18:04)
[2016-12-07] MEDS: VANCOMYCIN 1,250 MG in DEXTROSE 5%-WATER - 250 ML IVPB SCH ×2 (01:45→13:24)
[2016-12-07] MEDS: FUROSEMIDE 40 MG TABLET (FP) PO SCH ×2 (06:10→18:02)
[2016-12-07 07:57] LABS: BASOPHIL 0.5 % (0-2.0); EOSINOPHIL 3.5 % (0-4.5); MCH 33.1 pg (25.7-33.7); MCHC 34.8 g/dl (32.0-35.9); MEAN CELL VOLUME 95.1 fl (80-96); MEAN PLT VOLUME 7.8 fl (7.5-11.1); NEUTROPHILS 52.1 % (42.8-82.8); RDW 17.9 % (11.9-15.9); WHITE BLOOD COUNT 11.9 K/mm3 (4.0-10.0)
[2016-12-07 08:17] LABS: ALBUMIN 1.8 g/dl (3.4-5.0); ANION GAP 11 (8-16); CALCIUM 8.2 mg/dL (8.5-10.1); CO2 26 mmol/L (21-32); COCKROFT - GAULT 127.88; CREATININE 0.9 mg/dL (0.7-1.3); GLUCOSE,RANDOM 117 mg/dL (74-106); SGOT/AST 54 U/L (15-37); SGPT/ALT 20 U/L (12-78)
[2016-12-07 08:19] LABS: ALK PHOS 109 U/L (45-117); BILIRUBIN,TOTAL 4.8 mg/dL (0.2-1.0); TOT PROT 7.4 g/dl (6.4-8.2)
--- NOTE | 2016-12-07 08:56 | PN ---
Addendum entered and electronically signed by Vitaly Barker PA 12/07/16 09:17: MRI to r/o abscess in right middle finger Original Note: Progress Note (short form) - Note Progress Note: Ortho Pt seen and examined with right hand/middle finger cellulitis slowly improving Selected Entries 12/07/16 06:00 Temperature 97.7 F Pulse Rate 92 H Respiratory 18 Rate Blood Pressure 135/71 Laboratory Tests 12/07/16 06:45 WBC 11.9 H Hgb 9.6 L Hct 27.7 L Plt Count Pending decr erythema, + swelling, limited rom nvi a/p Continue abx as per ID If no improvement over the next 24 hours will need I & D NPO after midnight in case pt needs I & D elevation d/w Dr. Hand
[2016-12-07] MEDS ORDERED: PT OWN MED DRAWER 7, Y5N ONE ×2 (09:38→13:21)
[2016-12-07] MEDS: SPIRONOLACTONE 25 MG TABLET (FP) PO SCH (09:45)
[2016-12-07] MEDS: LACTULOSE 20 GM/30 ML UDC (FOR ORAL USE ONLY) PO SCH ×2 (09:46→22:25)
[2016-12-07] MEDS: oxyCODONE HCL 5 MG TABLET PO PRN ×2 (09:47→16:49)
[2016-12-07] MEDS: NADOLOL 40 MG TABLET (FP) PO SCH (09:47)
[2016-12-07] MEDS: FOLIC ACID 1 MG TABLET (FP) PO SCH (09:47)
[2016-12-07] MEDS: PANTOPRAZOLE 20 MG TABLET (FP) PO SCH (09:47)
[2016-12-07] MEDS: ACETAMINOPHEN 325 MG TABLET (FP) PO PRN ×2 (09:48→16:50)
[2016-12-07] MEDS: RIFAXIMIN 550 MG TABLET (UD) PO SCH ×2 (09:50→22:14)
[2016-12-07] MEDS: HYDROCORTISONE 1% TOPICAL CREAM 30 GM TUBE TP SCH ×2 (09:51→22:16)
--- NOTE | 2016-12-07 10:29 | PN ---
Progress Note, Physician Chief Complaint: cellutlits of finger slowly improving to get MRI of hand today to look for abscess possible I/D tommorow if does not improve-patient does not want the procedure if not needed - Current Medication List Current Medications: Active Medications Acetaminophen (Tylenol -) 325 mg PO Q6H PRN PRN Reason: FEVER OR PAIN Last Admin: 12/07/16 09:48 Dose: 325 mg Folic Acid (Folic Acid -) 1 mg PO DAILY [facility] Last Admin: 12/07/16 09:47 Dose: 1 mg Furosemide (Lasix -) 80 mg PO BID@0600,1800 [facility] Hydrocortisone (Hytone 1% Cream -) 1 applic TP BID [facility] Last Admin: 12/07/16 09:51 Dose: 1 applic Hydroxyzine HCl (Atarax -) 10 mg PO Q6H PRN PRN Reason: FOR ITCHING Last Admin: 12/05/16 13:48 Dose: 10 mg Vancomycin HCl 1,250 mg/ (Dextrose) 250 mls @ 250 mls/hr IVPB BID@0200,1400 [facility] PRN Reason: Protocol Last Admin: 12/07/16 01:45 Dose: 250 mls/hr Lactulose (Cephulac (Oral Use)) 20 gm PO BID [facility] Last Admin: 12/07/16 09:46 Dose: Not Given Nadolol (Corgard -) 40 mg PO DAILY [facility] Last Admin: 12/07/16 09:47 Dose: 40 mg Oxycodone HCl (Roxicodone -) 5 mg PO Q6H PRN PRN Reason: PAIN Last Admin: 12/07/16 09:47 Dose: 5 mg Pantoprazole Sodium (Protonix -) 20 mg PO DAILY [facility] Last Admin: 12/07/16 09:47 Dose: 20 mg Piperacillin Sod/Tazobactam Sod (Zosyn 3.375gm Ivpb (Pre-Docked)) 3.375 gm IVPB Q8H-IV [facility] PRN Reason: Protocol Last Admin: 12/07/16 09:50 Dose: 3.375 gm Rifaximin (Xifaxan -) 550 mg PO BID [facility] Last Admin: 12/07/16 09:50 Dose: 550 mg Spironolactone (Aldactone -) 25 mg PO DAILY [facility] Last Admin: 12/07/16 09:45 Dose: 25 mg Thiamine HCl (Vitamin B1 -) 100 mg PO HS [facility] Last Admin: 12/06/16 22:15 Dose: 100 mg - Objective Vital Signs: Vital Signs Temperature 97.7 F 12/07/16 06:00 Pulse Rate 92 H 12/07/16 06:00 Respiratory Rate 18 12/07/16 06:00 Blood Pressure 135/71 12/07/16 06:00 O2 Sat by Pulse Oximetry (%) 98 12/06/16 21:00 Constitutional: Yes: Calm Eyes: Yes: Sclera Icterus Cardiovascular: Yes: Regular Rate and Rhythm, S1, S2 Respiratory: Yes: CTA Bilaterally Gastrointestinal: Yes: Soft, Ascites Musculoskeletal: Yes: Other (finger swelling and erythema improving) Edema: Yes Labs: CBC, BMP 12/07/16 06:45 12/07/16 06:45 INR, PTT INR 2.23 (0.82-1.09) H 12/05/16 06:00 Problem List - Problems (1) Cellulitis Assessment/Plan: Iv antibiotic possible I/D if doesnot improve MRI of finger today to look for abscess Code(s): L03.90 - CELLULITIS, UNSPECIFIED Qualifiers: Site of cellulitis: extremity Site of cellulitis of extremity: finger Laterality: left Qualified Code(s): L03.012 - Cellulitis of left finger (2) Liver cirrhosis Assessment/Plan: gi saw patient aldactone lactulose nadalol rifaximin ultrasound shows liver cirrhosis and spleenomegaly patient needs to FU regarding liver transplant at [facility] Code(s): K74.60 - UNSPECIFIED CIRRHOSIS OF LIVER (3) Pruritic condition Assessment/Plan: atarax prn Code(s): L29.9 - PRURITUS, UNSPECIFIED (4) Leg edema Assessment/Plan: lasix dose 80mg po bid Code(s): R60.0 - LOCALIZED EDEMA Qualifiers: Laterality: bilateral Qualified Code(s): R60.0 - Localized edema
[2016-12-07] MEDS: hydrOXYzine HCL 10 MG TABLET PO PRN (13:24)
--- NOTE | 2016-12-07 15:15 | PN ---
GI Progress Note Subjective: No focal GI complaints continued on IV Abx per ID and being evaluated by ortho for left 3rd digit cellulitis gained weight during admission Believes that he had an appointment to see Dr. Barajas, transplant attending @ [facility] today however couldn't make it due to current hospitalization - Objective Vital Signs: Vital Signs Temperature 98.4 F 12/07/16 14:47 Pulse Rate 88 12/07/16 14:47 Respiratory Rate 16 12/07/16 14:47 Blood Pressure 140/68 12/07/16 14:47 O2 Sat by Pulse Oximetry (%) 98 12/06/16 21:00 Constitutional: Calm Eyes: Yes: Sclera Icterus Cardiovascular: Yes: Regular Rate and Rhythm Respiratory: Yes: CTA Bilaterally Gastrointestinal Inspection: Yes: Distention ...Auscultate: Yes: Normoactive Bowel Sounds ...Palpate: No: Tenderness Edema: Yes Edema: LLE: 1+, RLE: 1+ Neurological: Yes: Alert, Oriented. No: Asterixis Labs: CBC, BMP 12/07/16 06:45 12/07/16 06:45 INR, PTT INR 2.23 (0.82-1.09) H 12/05/16 06:00 Hepatic Panel Total Bilirubin 4.8 mg/dL (0.2-1.0) H 12/07/16 06:45 Direct Bilirubin 1.9 mg/dL (0.0-0.2) H 12/05/16 06:00 AST 54 U/L (15-37) H 12/07/16 06:45 ALT 20 U/L (12-78) 12/07/16 06:45 Alkaline Phosphatase 109 U/L (45-117) 12/07/16 06:45 Albumin 1.8 g/dl (3.4-5.0) L 12/07/16 06:45 Problem List - Problems (1) Alcoholic cirrhosis Assessment/Plan: Lasix restarted 80mg PO BID: Daily weights / I's and O's Increase aldactone to 50mg PO daily Q 6 month AFP tumor marker / US to screen for hepatoma Continue rifaximin / lactulose Needs f/u for xplant evaluation @ [facility] once acute issues are resolved Code(s): K70.30 - ALCOHOLIC CIRRHOSIS OF LIVER WITHOUT ASCITES
[2016-12-07 15:43] LABS: PLATELET COUNT 98 K/MM3 (134-434); PLATELET ESTIMATE DECREASED (NORMAL)
--- NOTE | 2016-12-07 16:17 | PN ---
Progress Note (short form) - Note Progress Note: hand erythema improved has localized to the finger which remains red and swollen Vital Signs Period Temp Pulse Resp BP Sys/Palmer Pulse Ox Last 24 Hr 97.3 F-98.4 F 85-93 16-18 122-140/59-71 98 cor-rrr lungs clear abd soft,nt hand decreased erythema, finger is red and swollen ext +edema CBC, BMP 12/07/16 06:45 12/07/16 06:45 Microbiology 12/03/16 11:44 Blood - Peripheral Venous Blood Culture - Preliminary Staphylococcus Coagulase Neg 12/03/16 11:44 Blood - Peripheral Venous Blood Culture - Preliminary NO GROWTH OBTAINED AFTER 96 HOURS, INCUBATION TO CONTINUE FOR 1 DAYS. 12/03/16 11:44 Urine - Urine Clean Catch Urine Culture - Final a/p cellullitis of the finger-r/o fracture agree with plans for MRI and possible drainage ortho f/u ongoing continue vanco/zosyn repeat vancomycin trough in am (ordered) blood culture isolate is contaminant liver cirrhosis-diuretics resumed Problem List - Problems (1) Cellulitis Code(s): L03.90 - CELLULITIS, UNSPECIFIED Qualifiers: Site of cellulitis: extremity Site of cellulitis of extremity: finger Laterality: left Qualified Code(s): L03.012 - Cellulitis of left finger (2) Liver cirrhosis Code(s): K74.60 - UNSPECIFIED CIRRHOSIS OF LIVER
[2016-12-07] MEDS ORDERED: HYDROmorphone HCL CARPU-JECT 1 MG/1 ML DISP.SYRIN IVPB ONE (22:00)
[2016-12-07] MEDS: THIAMINE HCL 100 MG TABLET (FP) PO SCH (22:14)
[2016-12-08] MEDS: PIPERACILLIN/TAZOB 3.375 GM/50 ML PRE-DOCKED IVPB SCH ×3 (02:14→17:46)
[2016-12-08] MEDS: VANCOMYCIN 1,250 MG in DEXTROSE 5%-WATER - 250 ML IVPB SCH ×2 (02:14→13:45)
[2016-12-08] MEDS: ACETAMINOPHEN 325 MG TABLET (FP) PO PRN ×4 (03:00→21:08)
[2016-12-08] MEDS: oxyCODONE HCL 5 MG TABLET PO PRN ×4 (03:02→21:07)
[2016-12-08] MEDS: FUROSEMIDE 40 MG TABLET (FP) PO SCH ×2 (06:18→17:45)
[2016-12-08 08:39] LABS: ALBUMIN 1.7 g/dl (3.4-5.0); ALK PHOS 124 U/L (45-117); ANION GAP 10 (8-16); BILIRUBIN,TOTAL 3.7 mg/dL (0.2-1.0); CALCIUM 7.7 mg/dL (8.5-10.1); CO2 25 mmol/L (21-32); CREATININE 0.9 mg/dL (0.7-1.3); GLUCOSE,RANDOM 111 mg/dL (74-106); SGOT/AST 53 U/L (15-37); SGPT/ALT 19 U/L (12-78); TOT PROT 7.2 g/dl (6.4-8.2)
[2016-12-08] MEDS ORDERED: PT OWN MED DRAWER 7, Y5N ONE ×2 (09:12→13:35)
[2016-12-08] MEDS: SPIRONOLACTONE 25 MG TABLET (FP) PO SCH (09:16)
[2016-12-08] MEDS: LACTULOSE 20 GM/30 ML UDC (FOR ORAL USE ONLY) PO SCH ×2 (09:17→21:06)
[2016-12-08] MEDS: NADOLOL 40 MG TABLET (FP) PO SCH (09:17)
[2016-12-08] MEDS: PANTOPRAZOLE 20 MG TABLET (FP) PO SCH (09:18)
[2016-12-08] MEDS: FOLIC ACID 1 MG TABLET (FP) PO SCH (09:18)
[2016-12-08] MEDS: MULTIVITAMINS (DAILY MVI) TABLET (FP) PO SCH (09:19)
[2016-12-08] MEDS: RIFAXIMIN 550 MG TABLET (UD) PO SCH ×2 (09:20→21:07)
[2016-12-08] MEDS: HYDROCORTISONE 1% TOPICAL CREAM 30 GM TUBE TP SCH ×2 (09:21→21:06)
--- NOTE | 2016-12-08 10:29 | PN ---
Progress Note, Physician Chief Complaint: patient in NPO on iv vanco MRI of hand was done possible infectious tensosynovitis possible phlegmon - Current Medication List Current Medications: Active Medications Acetaminophen (Tylenol -) 325 mg PO Q6H PRN PRN Reason: FEVER OR PAIN Last Admin: 12/08/16 09:19 Dose: 325 mg Folic Acid (Folic Acid -) 1 mg PO DAILY [facility] Last Admin: 12/08/16 09:18 Dose: 1 mg Furosemide (Lasix -) 80 mg PO BID@0600,1800 [facility] Last Admin: 12/08/16 06:18 Dose: 80 mg Hydrocortisone (Hytone 1% Cream -) 1 applic TP BID [facility] Last Admin: 12/08/16 09:21 Dose: 1 applic Hydroxyzine HCl (Atarax -) 10 mg PO Q6H PRN PRN Reason: FOR ITCHING Last Admin: 12/07/16 13:24 Dose: 10 mg Vancomycin HCl 1,250 mg/ (Dextrose) 250 mls @ 250 mls/hr IVPB BID@0200,1400 [facility] PRN Reason: Protocol Last Admin: 12/08/16 02:14 Dose: 250 mls/hr Lactulose (Cephulac (Oral Use)) 20 gm PO BID [facility] Last Admin: 12/08/16 09:17 Dose: Not Given Multivitamins/Minerals/Vitamin C (Tab-A-Vit -) 1 tab PO DAILY [facility] Last Admin: 12/08/16 09:19 Dose: 1 tab Nadolol (Corgard -) 40 mg PO DAILY [facility] Last Admin: 12/08/16 09:17 Dose: 40 mg Oxycodone HCl (Roxicodone -) 5 mg PO Q6H PRN PRN Reason: PAIN Last Admin: 12/08/16 09:18 Dose: 5 mg Pantoprazole Sodium (Protonix -) 20 mg PO DAILY [facility] Last Admin: 12/08/16 09:18 Dose: 20 mg Piperacillin Sod/Tazobactam Sod (Zosyn 3.375gm Ivpb (Pre-Docked)) 3.375 gm IVPB Q8H-IV [facility] PRN Reason: Protocol Last Admin: 12/08/16 09:20 Dose: 3.375 gm Rifaximin (Xifaxan -) 550 mg PO BID [facility] Last Admin: 12/08/16 09:20 Dose: 550 mg Spironolactone (Aldactone -) 50 mg PO DAILY [facility] Last Admin: 12/08/16 09:16 Dose: 50 mg Thiamine HCl (Vitamin B1 -) 100 mg PO HS [facility] Last Admin: 12/07/16 22:14 Dose: 100 mg - Objective Vital Signs: Vital Signs Temperature 98.2 F 12/08/16 06:00 Pulse Rate 91 H 12/08/16 06:00 Respiratory Rate 20 12/08/16 06:00 Blood Pressure 135/76 12/08/16 06:00 O2 Sat by Pulse Oximetry (%) 100 12/07/16 21:00 Constitutional: Yes: Calm Eyes: Yes: Sclera Icterus Cardiovascular: Yes: Regular Rate and Rhythm, S1, S2 Respiratory: Yes: CTA Bilaterally Gastrointestinal: Yes: Soft, Ascites Edema: Yes (less today) Neurological: Yes: Alert, Oriented Labs: CBC, BMP 12/07/16 06:45 12/08/16 06:30 INR, PTT INR 2.23 (0.82-1.09) H 12/05/16 06:00 Problem List - Problems (1) Cellulitis Assessment/Plan: NPO Iv antibiotic MRI done possible synovitis and phelgmon with soft tissue edema tavia get ortho to see patient - as patient wants to eat Code(s): L03.90 - CELLULITIS, UNSPECIFIED Qualifiers: Site of cellulitis: extremity Site of cellulitis of extremity: finger Laterality: left Qualified Code(s): L03.012 - Cellulitis of left finger (2) Liver cirrhosis Assessment/Plan: gi saw patient aldactone lactulose nadalol rifaximin ultrasound shows liver cirrhosis and spleenomegaly patient needs to FU regarding liver transplant at [facility] Code(s): K74.60 - UNSPECIFIED CIRRHOSIS OF LIVER (3) Pruritic condition Assessment/Plan: atarax prn Code(s): L29.9 - PRURITUS, UNSPECIFIED (4) Leg edema Assessment/Plan: lasix dose 80mg po bid improving Code(s): R60.0 - LOCALIZED EDEMA
--- NOTE | 2016-12-08 10:30 | PN ---
Progress Note (short form) - Note Progress Note: hand erythema improved has localized to the finger which remains red and swollen Vital Signs Period Temp Pulse Resp BP Sys/Palmer Pulse Ox Last 24 Hr 98 F-98.9 F 88-95 16-20 125-143/68-78 100 cor-rrr lungs clear abd soft,nt hand decreased erythema, finger is red and swollen ext +edema CBC, BMP 12/07/16 06:45 12/08/16 06:30 Microbiology 12/03/16 11:44 Blood - Peripheral Venous Blood Culture - Preliminary Staphylococcus Epidermidis 12/03/16 11:44 Blood - Peripheral Venous Blood Culture - Preliminary NO GROWTH OBTAINED AFTER 96 HOURS, INCUBATION TO CONTINUE FOR 1 DAYS. 12/03/16 11:44 Urine - Urine Clean Catch Urine Culture - Final a/p cellullitis of the finger-r/o fracture f/u MRI f/u with ortho continue vanco/zosyn repeat vancomycin trough today (ordered) blood culture isolate is contaminant liver cirrhosis-diuretics resumed Problem List - Problems (1) Cellulitis Code(s): L03.90 - CELLULITIS, UNSPECIFIED Qualifiers: Site of cellulitis: extremity Site of cellulitis of extremity: finger Laterality: left Qualified Code(s): L03.012 - Cellulitis of left finger (2) Liver cirrhosis Code(s): K74.60 - UNSPECIFIED CIRRHOSIS OF LIVER
[2016-12-08] MEDS ORDERED: DEXTROSE 5%-0.45% SALINE 1,000 ML IV SCH (11:25)
--- NOTE | 2016-12-08 15:17 | PN ---
Progress Note (short form) - Note Progress Note: Pt seen and examined. Middle finger is much improved as per the pt and my partner. Area of erythema, swelling, cellulitis demarcation all much improved. Has been on antibiotics for 4 days. ROM is improved and less painful. FDS, FDP, EDC all intact. Still with an area of tense swelling over the volar aspect of the middle finger middle phalanx. No obvious signs of flexor tendon sheath infection. No tenderness over the dorsal aspect. NVI Good capillary refill. No drainage. MRI See report. In my opinion it doesn't show a significant abscess or collection of pus to evacuate surgically. Imp Improving middle finger cellulitis and deep infection. Much improved on IV antibiotics. Rec I am not recommending an I & D surgery at this time. Con't elevation, IV abx, ROM exercises on his own. The patient is adamantly refusing surgery at this time, and for tomorrow, anyway. Will F/U tomorrow
[2016-12-08] MEDS: THIAMINE HCL 100 MG TABLET (FP) PO SCH (21:06)
[2016-12-09] MEDS ORDERED: PT OWN MED DRAWER 7, Y5N ONE ×2 (02:05→09:40)
[2016-12-09] MEDS: VANCOMYCIN 1,250 MG in DEXTROSE 5%-WATER - 250 ML IVPB SCH (02:18)
[2016-12-09] MEDS: PIPERACILLIN/TAZOB 3.375 GM/50 ML PRE-DOCKED IVPB SCH ×3 (02:18→18:00)
[2016-12-09] MEDS: ACETAMINOPHEN 325 MG TABLET (FP) PO PRN ×3 (03:01→21:02)
[2016-12-09] MEDS: oxyCODONE HCL 5 MG TABLET PO PRN ×4 (03:01→21:04)
[2016-12-09] MEDS: FUROSEMIDE 40 MG TABLET (FP) PO SCH ×2 (06:34→18:00)
--- NOTE | 2016-12-09 08:34 | PN ---
Progress Note, Physician History of Present Illness: FINGER WITH LESS PAIN PT REFUSING SURGERY AT THIS TIME - Current Medication List Current Medications: Active Medications Acetaminophen (Tylenol -) 325 mg PO Q6H PRN PRN Reason: FEVER OR PAIN Last Admin: 12/09/16 03:01 Dose: 325 mg Folic Acid (Folic Acid -) 1 mg PO DAILY [facility] Last Admin: 12/08/16 09:18 Dose: 1 mg Furosemide (Lasix -) 80 mg PO BID@0600,1800 [facility] Last Admin: 12/09/16 06:34 Dose: 80 mg Hydrocortisone (Hytone 1% Cream -) 1 applic TP BID [facility] Last Admin: 12/08/16 21:06 Dose: 1 applic Hydroxyzine HCl (Atarax -) 10 mg PO Q6H PRN PRN Reason: FOR ITCHING Last Admin: 12/07/16 13:24 Dose: 10 mg Vancomycin HCl 1,250 mg/ (Dextrose) 250 mls @ 250 mls/hr IVPB BID@0200,1400 [facility] PRN Reason: Protocol Last Admin: 12/09/16 02:18 Dose: 250 mls/hr Lactulose (Cephulac (Oral Use)) 20 gm PO BID [facility] Last Admin: 12/08/16 21:06 Dose: Not Given Multivitamins/Minerals/Vitamin C (Tab-A-Vit -) 1 tab PO DAILY [facility] Last Admin: 12/08/16 09:19 Dose: 1 tab Nadolol (Corgard -) 40 mg PO DAILY [facility] Last Admin: 12/08/16 09:17 Dose: 40 mg Oxycodone HCl (Roxicodone -) 5 mg PO Q6H PRN PRN Reason: PAIN Last Admin: 12/09/16 03:01 Dose: 5 mg Pantoprazole Sodium (Protonix -) 20 mg PO DAILY [facility] Last Admin: 12/08/16 09:18 Dose: 20 mg Piperacillin Sod/Tazobactam Sod (Zosyn 3.375gm Ivpb (Pre-Docked)) 3.375 gm IVPB Q8H-IV [facility] PRN Reason: Protocol Last Admin: 12/09/16 02:18 Dose: 3.375 gm Rifaximin (Xifaxan -) 550 mg PO BID [facility] Last Admin: 12/08/16 21:07 Dose: 550 mg Spironolactone (Aldactone -) 50 mg PO DAILY [facility] Last Admin: 12/08/16 09:16 Dose: 50 mg Thiamine HCl (Vitamin B1 -) 100 mg PO HS [facility] Last Admin: 12/08/16 21:06 Dose: 100 mg - Objective Vital Signs: Vital Signs Temperature 98.7 F 12/09/16 06:34 Pulse Rate 100 H 12/09/16 06:34 Respiratory Rate 20 12/09/16 06:34 Blood Pressure 125/74 12/09/16 06:34 O2 Sat by Pulse Oximetry (%) 100 12/08/16 21:00 Cardiovascular: Yes: Regular Rate and Rhythm Respiratory: Yes: Regular, CTA Bilaterally Gastrointestinal: Yes: Normal Bowel Sounds, Soft, Ascites Extremities: Yes: Erythema (AND EDEMA OF MIDDLE FINGER) Labs: CBC, BMP 12/07/16 06:45 12/08/16 06:30 INR, PTT INR 2.23 (0.82-1.09) H 12/05/16 06:00 Problem List - Problems (1) Cellulitis Assessment/Plan: IV ABX ID AND ORTHO ON CASE Code(s): L03.90 - CELLULITIS, UNSPECIFIED Qualifiers: Site of cellulitis: extremity Site of cellulitis of extremity: finger Laterality: left Qualified Code(s): L03.012 - Cellulitis of left finger (2) Liver cirrhosis Assessment/Plan: gi saw patient aldactone lactulose nadalol rifaximin ultrasound shows liver cirrhosis and spleenomegaly patient needs to FU regarding liver transplant at [facility] Code(s): K74.60 - UNSPECIFIED CIRRHOSIS OF LIVER (3) Anemia Assessment/Plan: S/P TRANSFUSION PRBC FOLLOW LABS Code(s): D64.9 - ANEMIA, UNSPECIFIED (4) Pruritic condition Assessment/Plan: atarax prn Code(s): L29.9 - PRURITUS, UNSPECIFIED
[2016-12-09] MEDS: PANTOPRAZOLE 20 MG TABLET (FP) PO SCH (09:42)
[2016-12-09] MEDS: SPIRONOLACTONE 25 MG TABLET (FP) PO SCH (09:42)
[2016-12-09] MEDS: FOLIC ACID 1 MG TABLET (FP) PO SCH (09:42)
[2016-12-09] MEDS: MULTIVITAMINS (DAILY MVI) TABLET (FP) PO SCH (09:43)
[2016-12-09] MEDS: RIFAXIMIN 550 MG TABLET (UD) PO SCH ×2 (09:43→21:02)
[2016-12-09] MEDS: NADOLOL 40 MG TABLET (FP) PO SCH (09:43)
[2016-12-09] MEDS: HYDROCORTISONE 1% TOPICAL CREAM 30 GM TUBE TP SCH ×2 (09:53→21:03)
--- NOTE | 2016-12-09 10:12 | PN ---
Progress Note (short form) - Note Progress Note: Pt seen and examined. He states that his left middle finger is improving, he notices additional improvement over the past 24 hours. In the past previous episodes of cellulitis have taken 4-8 weeks to resolve, slowed by his poor liver function. PE Left middle finger is still red, swelling is unchanged. + tender, mostly over the volar aspect of the proximal phalanx. Slightly improved ROM. No drainage. Imp Left middle finger cellulitis responding well to IV abx. Rec Con't this course of treatment: IV abx, elevation, ROM exercises. I am not recommending I&D surgery at this time, and the pt is refusing surgery. Will follow.
[2016-12-09] MEDS: LACTULOSE 20 GM/30 ML UDC (FOR ORAL USE ONLY) PO SCH ×2 (11:16→21:04)
--- NOTE | 2016-12-09 14:08 | PN ---
Progress Note (short form) - Note Progress Note: hand erythema improved has localized to the finger which remains red and swollen Vital Signs Period Temp Pulse Resp BP Sys/Palmer Pulse Ox Last 24 Hr 98.4 F-99.2 F 88-100 16-20 114-145/62-82 98-100 cor-rrr lungs clear abd soft,nt ext +edema finger is still swollen but less red CBC, BMP 12/07/16 06:45 12/08/16 06:30 Microbiology 12/03/16 11:44 Blood - Peripheral Venous Blood Culture - Final NO GROWTH AFTER 5 DAYS INCUBATION 12/03/16 11:44 Blood - Peripheral Venous Blood Culture - Preliminary Staphylococcus Epidermidis 12/03/16 11:44 Urine - Urine Clean Catch Urine Culture - Final Laboratory Tests 12/04/16 12/04/16 12/04/16 06:00 06:30 06:30 ESR 65 H C-Reactive Protein 1.7 H Vancomycin Trough Random Vancomycin 6.457 12/08/16 12:53 ESR C-Reactive Protein Vancomycin Trough 21.889 H* D Random Vancomycin a/p cellullitis of the finger-r/o fracture MRI noted f/u with ortho vanco on hold, level is high, repeat vanco level in am continue zosyn repeat esr /crp in am blood culture isolate is contaminant liver cirrhosis-diuretics resumed Problem List - Problems (1) Cellulitis Code(s): L03.90 - CELLULITIS, UNSPECIFIED Qualifiers: Site of cellulitis: extremity Site of cellulitis of extremity: finger Laterality: left Qualified Code(s): L03.012 - Cellulitis of left finger (2) Liver cirrhosis Code(s): K74.60 - UNSPECIFIED CIRRHOSIS OF LIVER
[2016-12-09] MEDS: THIAMINE HCL 100 MG TABLET (FP) PO SCH (21:02)
[2016-12-10] MEDS: PIPERACILLIN/TAZOB 3.375 GM/50 ML PRE-DOCKED IVPB SCH ×3 (02:00→17:36)
[2016-12-10] MEDS: ACETAMINOPHEN 325 MG TABLET (FP) PO PRN ×4 (03:01→21:21)
[2016-12-10] MEDS: oxyCODONE HCL 5 MG TABLET PO PRN ×4 (03:03→21:19)
[2016-12-10] MEDS: FUROSEMIDE 40 MG TABLET (FP) PO SCH (06:27)
[2016-12-10 08:20] LABS: C-REACTIVE PROTEIN 1.7 MG/DL (0.00-0.3)
[2016-12-10] MEDS ORDERED: PT OWN MED DRAWER 7, Y5N ONE (09:04)
[2016-12-10] MEDS: FOLIC ACID 1 MG TABLET (FP) PO SCH (09:12)
[2016-12-10] MEDS: RIFAXIMIN 550 MG TABLET (UD) PO SCH ×2 (09:12→21:23)
[2016-12-10] MEDS: hydrOXYzine HCL 10 MG TABLET PO PRN (09:12)
--- NOTE | 2016-12-10 09:12 | PN ---
Progress Note (short form) - Note Progress Note: Pt seen and examined. Fabiola stopped, still on IV Zosyn. Overall the finger con't to improve. Less swollen, less red, less tender over the volar aspect of the proximal phalanx. Improved ROM throughout middle finger. Overall I feel, and the pt feels, that his finger cellulitis is improving. He is stil refusing surgery, I am not recommending it. I rec con't IV abx, abx regimen as per ID. Elevate, ROM. DC as per ID and f/u as an out pt PRN
[2016-12-10] MEDS: HYDROCORTISONE 1% TOPICAL CREAM 30 GM TUBE TP SCH ×2 (09:13→21:23)
[2016-12-10] MEDS: MULTIVITAMINS (DAILY MVI) TABLET (FP) PO SCH (09:13)
[2016-12-10] MEDS: NADOLOL 40 MG TABLET (FP) PO SCH (09:13)
[2016-12-10] MEDS: LACTULOSE 20 GM/30 ML UDC (FOR ORAL USE ONLY) PO SCH ×2 (09:13→21:23)
[2016-12-10] MEDS: PANTOPRAZOLE 20 MG TABLET (FP) PO SCH (09:13)
[2016-12-10] MEDS: SPIRONOLACTONE 25 MG TABLET (FP) PO SCH (09:15)
--- NOTE | 2016-12-10 11:08 | PN ---
Progress Note, Physician Chief Complaint: patient in bed - Current Medication List Current Medications: Active Medications Acetaminophen (Tylenol -) 325 mg PO Q6H PRN PRN Reason: FEVER OR PAIN Last Admin: 12/10/16 09:14 Dose: 325 mg Folic Acid (Folic Acid -) 1 mg PO DAILY [facility] Last Admin: 12/10/16 09:12 Dose: 1 mg Furosemide (Lasix -) 80 mg PO BID@0600,1800 [facility] Last Admin: 12/10/16 06:27 Dose: 80 mg Hydrocortisone (Hytone 1% Cream -) 1 applic TP BID [facility] Last Admin: 12/10/16 09:13 Dose: 1 applic Hydroxyzine HCl (Atarax -) 10 mg PO Q6H PRN PRN Reason: FOR ITCHING Last Admin: 12/10/16 09:12 Dose: 10 mg Lactulose (Cephulac (Oral Use)) 20 gm PO BID [facility] Last Admin: 12/10/16 09:13 Dose: Not Given Multivitamins/Minerals/Vitamin C (Tab-A-Vit -) 1 tab PO DAILY [facility] Last Admin: 12/10/16 09:13 Dose: 1 tab Nadolol (Corgard -) 40 mg PO DAILY [facility] Last Admin: 12/10/16 09:13 Dose: 40 mg Oxycodone HCl (Roxicodone -) 5 mg PO Q6H PRN PRN Reason: PAIN Last Admin: 12/10/16 09:13 Dose: 5 mg Pantoprazole Sodium (Protonix -) 20 mg PO DAILY [facility] Last Admin: 12/10/16 09:13 Dose: 20 mg Piperacillin Sod/Tazobactam Sod (Zosyn 3.375gm Ivpb (Pre-Docked)) 3.375 gm IVPB Q8H-IV [facility] PRN Reason: Protocol Last Admin: 12/10/16 09:13 Dose: 3.375 gm Rifaximin (Xifaxan -) 550 mg PO BID [facility] Last Admin: 12/10/16 09:12 Dose: 550 mg Spironolactone (Aldactone -) 50 mg PO DAILY [facility] Last Admin: 12/10/16 09:15 Dose: 50 mg Thiamine HCl (Vitamin B1 -) 100 mg PO HS [facility] Last Admin: 12/09/16 21:02 Dose: 100 mg - Objective Vital Signs: Vital Signs Temperature 98.3 F 12/10/16 06:30 Pulse Rate 93 H 12/10/16 06:30 Respiratory Rate 20 12/10/16 06:30 Blood Pressure 120/58 12/10/16 06:30 O2 Sat by Pulse Oximetry (%) 98 12/09/16 21:00 Constitutional: Yes: Calm Eyes: Yes: Sclera Icterus Cardiovascular: Yes: Regular Rate and Rhythm, S1, S2 Respiratory: Yes: CTA Bilaterally Gastrointestinal: Yes: Normal Bowel Sounds, Soft, Ascites Extremities: Yes: Other (left finger less swollen less erythematous less tender) Edema: Yes Edema: LLE: 2+, RLE: 2+ Labs: CBC, BMP 12/07/16 06:45 12/08/16 06:30 INR, PTT INR 2.23 (0.82-1.09) H 12/05/16 06:00 Problem List - Problems (1) Cellulitis Assessment/Plan: improving ebc 11.2 iv zosyn [facility] high level Code(s): L03.90 - CELLULITIS, UNSPECIFIED Qualifiers: Site of cellulitis: extremity Site of cellulitis of extremity: finger Laterality: left Qualified Code(s): L03.012 - Cellulitis of left finger (2) Liver cirrhosis Assessment/Plan: gi saw patient aldactone lactulose nadalol rifaximin ultrasound shows liver cirrhosis and spleenomegaly patient needs to FU regarding liver transplant at [facility] Code(s): K74.60 - UNSPECIFIED CIRRHOSIS OF LIVER (3) Pruritic condition Assessment/Plan: atarax prn Code(s): L29.9 - PRURITUS, UNSPECIFIED (4) Leg edema Assessment/Plan: still edematous will give iv lasix today Code(s): R60.0 - LOCALIZED EDEMA
[2016-12-10] MEDS ORDERED: FUROSEMIDE 40 MG/4 ML INJECTABLE VIAL IVPB SCH (14:00)
[2016-12-10] MEDS: FUROSEMIDE 100 MG/10 ML INJECTABLE VIAL IVPB SCH (14:15)
--- NOTE | 2016-12-10 14:55 | PN ---
Progress Note (short form) - Note Progress Note: finger with very slow improvement Vital Signs Period Temp Pulse Resp BP Sys/Palmer Pulse Ox Last 24 Hr 96.7 F-98.6 F 86-99 16-20 107-121/52-67 98-98 cor-rrr lungs clear abd soft,nt ext +edema finger remains swollen, less erythema CBC, BMP 12/07/16 06:45 12/08/16 06:30 Laboratory Tests 12/04/16 12/04/16 12/04/16 06:00 06:30 06:30 ESR 65 H C-Reactive Protein 1.7 H Vancomycin Trough Random Vancomycin 6.457 12/08/16 12/10/16 12/10/16 12:53 06:55 06:55 ESR 85 H C-Reactive Protein 1.7 H Vancomycin Trough 21.889 H* D Random Vancomycin 14.192 a/p cellullitis of the finger-r/o fracture MRI noted- tenosynovitis, +bone marrow edema -cannot r/o osteo resume vancomycin in am suspect will need senior care iv antibiotics will resume vancomycin in am call in to dr [email or web address] to discuss- awaiting call back liver cirrhosis Problem List - Problems (1) Cellulitis Code(s): L03.90 - CELLULITIS, UNSPECIFIED Qualifiers: Site of cellulitis: extremity Site of cellulitis of extremity: finger Laterality: left Qualified Code(s): L03.012 - Cellulitis of left finger (2) Liver cirrhosis Code(s): K74.60 - UNSPECIFIED CIRRHOSIS OF LIVER
[2016-12-10] MEDS: THIAMINE HCL 100 MG TABLET (FP) PO SCH (21:19)
[2016-12-11] MEDS: PIPERACILLIN/TAZOB 3.375 GM/50 ML PRE-DOCKED IVPB SCH ×3 (02:09→18:38)
[2016-12-11] MEDS: oxyCODONE HCL 5 MG TABLET PO PRN ×4 (03:20→21:31)
[2016-12-11] MEDS: ACETAMINOPHEN 325 MG TABLET (FP) PO PRN ×4 (03:21→21:28)
[2016-12-11] MEDS: FUROSEMIDE 100 MG/10 ML INJECTABLE VIAL IVPB SCH ×2 (06:17→15:22)
[2016-12-11 07:12] LABS: BASOPHIL 0.6 % (0-2.0); EOSINOPHIL 2.5 % (0-4.5); MCH 32.7 pg (25.7-33.7); MCHC 34.2 g/dl (32.0-35.9); MEAN CELL VOLUME 95.9 fl (80-96); MEAN PLT VOLUME 8.1 fl (7.5-11.1); NEUTROPHILS 54.8 % (42.8-82.8); PLATELET COUNT 80 K/MM3 (134-434); RDW 17.7 % (11.9-15.9)
[2016-12-11 07:37] LABS: CALCIUM 8.3 mg/dL (8.5-10.1); COCKROFT - GAULT 103.35; CREATININE 1.1 mg/dL (0.7-1.3)
--- NOTE | 2016-12-11 08:46 | PN ---
Progress Note (short form) - Note Progress Note: finger with very slow improvement Vital Signs Period Temp Pulse Resp BP Sys/Palmer Pulse Ox Last 24 Hr 96.8 F-98.6 F 81-99 16-20 107-127/52-73 98-98 cor-rrr lungs clear abd soft ext +edema still with erythema and swelling of finger but improving CBC, BMP 12/11/16 06:00 12/11/16 06:00 Laboratory Tests 12/04/16 12/04/16 12/04/16 06:00 06:30 06:30 ESR 65 H C-Reactive Protein 1.7 H Vancomycin Trough Random Vancomycin 6.457 12/08/16 12/10/16 12/10/16 12:53 06:55 06:55 ESR 85 H C-Reactive Protein 1.7 H Vancomycin Trough 21.889 H* D Random Vancomycin 14.192 a/p cellullitis of the finger- MRI noted- tenosynovitis, +bone marrow edema -cannot r/o osteo day #8 antibiotics d/w Dr Cooper- he does not feel there is anything to drain given clinical findings, MRI findings and elevated esr/crp would suggest long-term iv antibiotics (4 to 6 weeks based on clinical response) vancomycin and po quinolone (cipro or levaquin) he is reluctant and wishes to discuss with his PMD liver cirrhosis Problem List - Problems (1) Cellulitis Code(s): L03.90 - CELLULITIS, UNSPECIFIED Qualifiers: Site of cellulitis: extremity Site of cellulitis of extremity: finger Laterality: left Qualified Code(s): L03.012 - Cellulitis of left finger (2) Liver cirrhosis Code(s): K74.60 - UNSPECIFIED CIRRHOSIS OF LIVER
[2016-12-11] MEDS ORDERED: PT OWN MED DRAWER 7, Y5N ONE ×2 (09:39→15:28)
[2016-12-11] MEDS: FOLIC ACID 1 MG TABLET (FP) PO SCH (09:43)
[2016-12-11] MEDS: PANTOPRAZOLE 20 MG TABLET (FP) PO SCH (09:43)
[2016-12-11] MEDS: MULTIVITAMINS (DAILY MVI) TABLET (FP) PO SCH (09:44)
[2016-12-11] MEDS: RIFAXIMIN 550 MG TABLET (UD) PO SCH ×2 (09:44→21:28)
[2016-12-11] MEDS: HYDROCORTISONE 1% TOPICAL CREAM 30 GM TUBE TP SCH ×2 (09:45→21:32)
[2016-12-11] MEDS: LACTULOSE 20 GM/30 ML UDC (FOR ORAL USE ONLY) PO SCH ×2 (09:45→21:33)
[2016-12-11] MEDS: NADOLOL 40 MG TABLET (FP) PO SCH (09:45)
[2016-12-11] MEDS: SPIRONOLACTONE 25 MG TABLET (FP) PO SCH (09:45)
[2016-12-11] MEDS: hydrOXYzine HCL 10 MG TABLET PO PRN ×2 (09:45→15:29)
[2016-12-11] MEDS: VANCOMYCIN 1,250 MG in DEXTROSE 5%-WATER - 250 ML IVPB SCH (10:55)
--- NOTE | 2016-12-11 15:28 | PN ---
Progress Note, Physician Chief Complaint: explained to patient about need iv abx he is willing to do that only at home infusion and to come to PMD for blood draws - Current Medication List Current Medications: Active Medications Acetaminophen (Tylenol -) 325 mg PO Q6H PRN PRN Reason: FEVER OR PAIN Last Admin: 12/11/16 09:44 Dose: 325 mg Folic Acid (Folic Acid -) 1 mg PO DAILY [facility] Last Admin: 12/11/16 09:43 Dose: 1 mg Furosemide (Lasix Injection -) 80 mg IVPB BID@0600,1400 [facility] Last Admin: 12/11/16 06:17 Dose: 80 mg Hydrocortisone (Hytone 1% Cream -) 1 applic TP BID [facility] Last Admin: 12/11/16 09:45 Dose: 1 applic Hydroxyzine HCl (Atarax -) 10 mg PO Q6H PRN PRN Reason: FOR ITCHING Last Admin: 12/11/16 09:45 Dose: 10 mg Vancomycin HCl 1,250 mg/ (Dextrose) 250 mls @ 166.667 mls/hr IVPB DAILY [facility] PRN Reason: Protocol Last Admin: 12/11/16 10:55 Dose: 166.667 mls/hr Lactulose (Cephulac (Oral Use)) 20 gm PO BID [facility] Last Admin: 12/11/16 09:45 Dose: Not Given Multivitamins/Minerals/Vitamin C (Tab-A-Vit -) 1 tab PO DAILY [facility] Last Admin: 12/11/16 09:44 Dose: 1 tab Nadolol (Corgard -) 40 mg PO DAILY [facility] Last Admin: 12/11/16 09:45 Dose: 40 mg Oxycodone HCl (Roxicodone -) 5 mg PO Q6H PRN PRN Reason: PAIN Last Admin: 12/11/16 03:20 Dose: 5 mg Pantoprazole Sodium (Protonix -) 20 mg PO DAILY [facility] Last Admin: 12/11/16 09:43 Dose: 20 mg Piperacillin Sod/Tazobactam Sod (Zosyn 3.375gm Ivpb (Pre-Docked)) 3.375 gm IVPB Q8H-IV [facility] PRN Reason: Protocol Last Admin: 12/11/16 09:45 Dose: 3.375 gm Rifaximin (Xifaxan -) 550 mg PO BID [facility] Last Admin: 12/11/16 09:44 Dose: 550 mg Spironolactone (Aldactone -) 50 mg PO DAILY [facility] Last Admin: 12/11/16 09:45 Dose: 50 mg Thiamine HCl (Vitamin B1 -) 100 mg PO HS [facility] Last Admin: 12/10/16 21:19 Dose: 100 mg - Objective Vital Signs: Vital Signs Temperature 97.9 F 12/11/16 10:00 Pulse Rate 97 H 12/11/16 10:00 Respiratory Rate 20 12/11/16 10:00 Blood Pressure 127/71 12/11/16 10:00 O2 Sat by Pulse Oximetry (%) 100 12/11/16 09:00 Constitutional: Yes: Calm Neck: Yes: Trachea Midline Cardiovascular: Yes: Regular Rate and Rhythm, S1, S2 Respiratory: Yes: CTA Bilaterally Gastrointestinal: Yes: Normal Bowel Sounds, Soft Extremities: Yes: Other (erythema is less still swollen) Edema: Yes Edema: LLE: 2+, RLE: 2+ Labs: CBC, BMP 12/11/16 06:00 12/11/16 06:00 INR, PTT INR 2.23 (0.82-1.09) H 12/05/16 06:00 Problem List - Problems (1) Cellulitis Assessment/Plan: possible osteo iv abx half-way picc line wednesday reversal of INR iv vanco and oral levaquin for 4 weeks twice a week will need bmp and vanco level Code(s): L03.90 - CELLULITIS, UNSPECIFIED Qualifiers: Site of cellulitis: extremity Site of cellulitis of extremity: finger Laterality: left Qualified Code(s): L03.012 - Cellulitis of left finger (2) Liver cirrhosis Assessment/Plan: gi saw patient aldactone lactulose nadalol rifaximin ultrasound shows liver cirrhosis and spleenomegaly patient needs to FU regarding liver transplant at [facility] Code(s): K74.60 - UNSPECIFIED CIRRHOSIS OF LIVER (3) Pruritic condition Assessment/Plan: atarax prn Code(s): L29.9 - PRURITUS, UNSPECIFIED (4) Leg edema Assessment/Plan: iv lasix bid renal function ok for now Code(s): R60.0 - LOCALIZED EDEMA
[2016-12-11] MEDS ORDERED: POTASSIUM CHLORIDE TABS 20 MEQ TABLET.ER (FP) PO ONE (15:40)
--- NOTE | 2016-12-11 16:27 | PN ---
Progress Note (short form) - Note Progress Note: Ortho Pt seen and examined with right hand/middle finger cellulitis-->improving Selected Entries 12/11/16 15:25 Temperature 98.7 F Pulse Rate 83 Respiratory 20 Rate Blood Pressure 121/65 Laboratory Tests 12/11/16 06:00 WBC 10.0 Hgb 9.3 L Hct 27.1 L Plt Count 80 L decr erythema, decr swelling and pain, limited rom nvi a/p Continue abx as per ID PICC line ROM exercises elevation d/w Dr. Tabares
[2016-12-11 17:35] LABS: INR 2.38 (0.82-1.09); PROTHROMBIN TIME (PATIENT) 26.6 SEC (9.98-11.88)
[2016-12-11] MEDS: THIAMINE HCL 100 MG TABLET (FP) PO SCH (21:28)
[2016-12-12] MEDS: hydrOXYzine HCL 10 MG TABLET PO PRN ×3 (01:18→22:23)
[2016-12-12] MEDS: PIPERACILLIN/TAZOB 3.375 GM/50 ML PRE-DOCKED IVPB SCH ×3 (01:19→17:46)
[2016-12-12] MEDS: oxyCODONE HCL 5 MG TABLET PO PRN ×3 (03:04→17:46)
[2016-12-12] MEDS: ACETAMINOPHEN 325 MG TABLET (FP) PO PRN ×3 (03:05→17:46)
[2016-12-12] MEDS: FUROSEMIDE 100 MG/10 ML INJECTABLE VIAL IVPB SCH ×2 (06:09→14:59)
[2016-12-12 07:37] LABS: ANION GAP 10 (8-16); CALCIUM 8.4 mg/dL (8.5-10.1); CO2 29 mmol/L (21-32); GLUCOSE,RANDOM 109 mg/dL (74-106); SGOT/AST 65 U/L (15-37); SGPT/ALT 20 U/L (12-78)
[2016-12-12 07:39] LABS: ALK PHOS 135 U/L (45-117); BILIRUBIN,TOTAL 3.6 mg/dL (0.2-1.0); COCKROFT - GAULT 94.74; CREATININE 1.2 mg/dL (0.7-1.3); TOT PROT 8.1 g/dl (6.4-8.2)
[2016-12-12] MEDS: RIFAXIMIN 550 MG TABLET (UD) PO SCH ×2 (09:46→22:23)
[2016-12-12] MEDS: MULTIVITAMINS (DAILY MVI) TABLET (FP) PO SCH (09:46)
[2016-12-12] MEDS: PANTOPRAZOLE 20 MG TABLET (FP) PO SCH (09:46)
[2016-12-12] MEDS: SPIRONOLACTONE 25 MG TABLET (FP) PO SCH (09:46)
[2016-12-12] MEDS: FOLIC ACID 1 MG TABLET (FP) PO SCH (09:46)
[2016-12-12] MEDS: NADOLOL 40 MG TABLET (FP) PO SCH (09:47)
[2016-12-12] MEDS: HYDROCORTISONE 1% TOPICAL CREAM 30 GM TUBE TP SCH ×2 (09:47→22:22)
--- NOTE | 2016-12-12 10:01 | PN ---
Progress Note, Physician History of Present Illness: Awake, alert No c/o finger pain No fever/ chills Tolerating antibiotics Afebrile - Current Medication List Current Medications: Active Medications Acetaminophen (Tylenol -) 325 mg PO Q6H PRN PRN Reason: FEVER OR PAIN Last Admin: 12/12/16 09:46 Dose: 325 mg Folic Acid (Folic Acid -) 1 mg PO DAILY [facility] Last Admin: 12/12/16 09:46 Dose: 1 mg Furosemide (Lasix Injection -) 80 mg IVPB BID@0600,1400 [facility] Last Admin: 12/12/16 06:09 Dose: 80 mg Hydrocortisone (Hytone 1% Cream -) 1 applic TP BID [facility] Last Admin: 12/12/16 09:47 Dose: 1 applic Hydroxyzine HCl (Atarax -) 10 mg PO Q6H PRN PRN Reason: FOR ITCHING Last Admin: 12/12/16 09:46 Dose: 10 mg Vancomycin HCl 1,250 mg/ (Dextrose) 250 mls @ 166.667 mls/hr IVPB DAILY [facility] PRN Reason: Protocol Last Admin: 12/11/16 10:55 Dose: 166.667 mls/hr Lactulose (Cephulac (Oral Use)) 20 gm PO BID [facility] Last Admin: 12/11/16 21:33 Dose: Not Given Multivitamins/Minerals/Vitamin C (Tab-A-Vit -) 1 tab PO DAILY [facility] Last Admin: 12/12/16 09:46 Dose: 1 tab Nadolol (Corgard -) 40 mg PO DAILY [facility] Last Admin: 12/12/16 09:47 Dose: 40 mg Oxycodone HCl (Roxicodone -) 5 mg PO Q6H PRN PRN Reason: PAIN Last Admin: 12/12/16 09:46 Dose: 5 mg Pantoprazole Sodium (Protonix -) 20 mg PO DAILY [facility] Last Admin: 12/12/16 09:46 Dose: 20 mg Piperacillin Sod/Tazobactam Sod (Zosyn 3.375gm Ivpb (Pre-Docked)) 3.375 gm IVPB Q8H-IV [facility] PRN Reason: Protocol Last Admin: 12/12/16 09:46 Dose: 3.375 gm Rifaximin (Xifaxan -) 550 mg PO BID [facility] Last Admin: 12/12/16 09:46 Dose: 550 mg Spironolactone (Aldactone -) 50 mg PO DAILY [facility] Last Admin: 12/12/16 09:46 Dose: 50 mg Thiamine HCl (Vitamin B1 -) 100 mg PO HS [facility] Last Admin: 12/11/16 21:28 Dose: 100 mg - Objective Vital Signs: Vital Signs Temperature 97.7 F 12/12/16 07:03 Pulse Rate 92 H 12/12/16 07:03 Respiratory Rate 20 12/12/16 07:03 Blood Pressure 120/62 12/12/16 07:03 O2 Sat by Pulse Oximetry (%) 100 12/11/16 21:00 Constitutional: Yes: No Distress Eyes: Yes: Conjunctiva Clear Cardiovascular: Yes: Regular Rate and Rhythm, S1, S2 Respiratory: Yes: CTA Bilaterally Gastrointestinal: Yes: Normal Bowel Sounds, Soft. No: Tenderness Extremities: Yes: Other (L 3rd digit swelling/ erythema decreased ROM) Labs: CBC, BMP 12/11/16 06:00 12/12/16 06:00 INR, PTT INR 2.38 (0.82-1.09) H 12/11/16 16:00 Assessment/Plan Cellulitis/ tenosynovits/ possible osteomyelitis L 3rd digit Chronic liver disease Continue vanco/ zosyn For PICC, outpatient antibiotic therapy
[2016-12-12] MEDS: VANCOMYCIN 1,250 MG in DEXTROSE 5%-WATER - 250 ML IVPB SCH (10:32)
[2016-12-12] MEDS: LACTULOSE 20 GM/30 ML UDC (FOR ORAL USE ONLY) PO SCH ×2 (11:07→22:22)
--- NOTE | 2016-12-12 13:01 | PN ---
Progress Note, Physician Chief Complaint: THIS IS MY FIRST ENCOUNTER WITH THIS PATIENT EVENTS AND CHART REVIEWED. IS BEDSIDE PATIENT C/O PAIN AND CAN NOT TOLERATE MEDICATIONS WITH LIVER DISEASE - Current Medication List Current Medications: Active Medications Acetaminophen (Tylenol -) 325 mg PO Q6H PRN PRN Reason: FEVER OR PAIN Last Admin: 12/12/16 09:46 Dose: 325 mg Folic Acid (Folic Acid -) 1 mg PO DAILY [facility] Last Admin: 12/12/16 09:46 Dose: 1 mg Furosemide (Lasix Injection -) 80 mg IVPB BID@0600,1400 [facility] Last Admin: 12/12/16 06:09 Dose: 80 mg Hydrocortisone (Hytone 1% Cream -) 1 applic TP BID [facility] Last Admin: 12/12/16 09:47 Dose: 1 applic Hydroxyzine HCl (Atarax -) 10 mg PO Q6H PRN PRN Reason: FOR ITCHING Last Admin: 12/12/16 09:46 Dose: 10 mg Vancomycin HCl 1,250 mg/ (Dextrose) 250 mls @ 166.667 mls/hr IVPB DAILY [facility] PRN Reason: Protocol Last Admin: 12/12/16 10:32 Dose: 166.667 mls/hr Lactulose (Cephulac (Oral Use)) 20 gm PO BID [facility] Last Admin: 12/12/16 11:07 Dose: Not Given Multivitamins/Minerals/Vitamin C (Tab-A-Vit -) 1 tab PO DAILY [facility] Last Admin: 12/12/16 09:46 Dose: 1 tab Nadolol (Corgard -) 40 mg PO DAILY [facility] Last Admin: 12/12/16 09:47 Dose: 40 mg Oxycodone HCl (Roxicodone -) 5 mg PO Q6H PRN PRN Reason: PAIN Last Admin: 12/12/16 09:46 Dose: 5 mg Pantoprazole Sodium (Protonix -) 20 mg PO DAILY [facility] Last Admin: 12/12/16 09:46 Dose: 20 mg Piperacillin Sod/Tazobactam Sod (Zosyn 3.375gm Ivpb (Pre-Docked)) 3.375 gm IVPB Q8H-IV [facility] PRN Reason: Protocol Last Admin: 12/12/16 09:46 Dose: 3.375 gm Rifaximin (Xifaxan -) 550 mg PO BID [facility] Last Admin: 12/12/16 09:46 Dose: 550 mg Spironolactone (Aldactone -) 50 mg PO DAILY [facility] Last Admin: 12/12/16 09:46 Dose: 50 mg Thiamine HCl (Vitamin B1 -) 100 mg PO HS [facility] Last Admin: 12/11/16 21:28 Dose: 100 mg - Objective Vital Signs: Vital Signs Temperature 98.1 F 12/12/16 10:00 Pulse Rate 89 12/12/16 10:00 Respiratory Rate 18 12/12/16 10:00 Blood Pressure 131/71 12/12/16 10:00 O2 Sat by Pulse Oximetry (%) 100 12/12/16 09:00 Constitutional: Yes: Mild Distress Eyes: Yes: WNL HENT: Yes: WNL Neck: Yes: WNL Cardiovascular: Yes: WNL Respiratory: Yes: WNL Gastrointestinal: Yes: WNL Genitourinary: Yes: WNL Musculoskeletal: Yes: Joint Swelling, Muscle Pain Extremities: Yes: Deformity Edema: Yes Edema: LLE: 2+, RLE: 2+ Peripheral Pulses WNL: Yes Integumentary: Yes: Erythema, Petechiae, Pressure Ulcer, Rash, Venous Stasis Changes Wound/Incision: Yes: Dressing Removed, Reddened, Excoriated, Unapproximated Neurological: Yes: Weakness ...Motor Strength: LUE, LLE, RUE, RLE Psychiatric: Yes: Other Labs: CBC, BMP 12/11/16 06:00 12/12/16 06:00 INR, PTT INR 2.38 (0.82-1.09) H 12/11/16 16:00 Problem List - Problems (1) Alcoholic cirrhosis Code(s): K70.30 - ALCOHOLIC CIRRHOSIS OF LIVER WITHOUT ASCITES (2) Anemia Code(s): D64.9 - ANEMIA, UNSPECIFIED (3) Cellulitis Code(s): L03.90 - CELLULITIS, UNSPECIFIED Qualifiers: Site of cellulitis: extremity Site of cellulitis of extremity: finger Laterality: left Qualified Code(s): L03.012 - Cellulitis of left finger (4) Leg edema Code(s): R60.0 - LOCALIZED EDEMA (5) Leukocytosis Code(s): D72.829 - ELEVATED WHITE BLOOD CELL COUNT, UNSPECIFIED Qualifiers: Leukocytosis type: unspecified Qualified Code(s): D72.829 - Elevated white blood cell count, unspecified (6) Liver cirrhosis Code(s): K74.60 - UNSPECIFIED CIRRHOSIS OF LIVER (7) Pruritic condition Code(s): L29.9 - PRURITUS, UNSPECIFIED (8) Fracture of rib of left side Code(s): S22.32XA - FRACTURE OF ONE RIB, LEFT SIDE, INIT FOR CLOS FX Qualifiers: Encounter type: initial encounter Rib fracture type: multiple ribs Fracture type: closed Qualified Code(s): S22.42XA - Multiple fractures of ribs, left side, initial encounter for closed fracture Assessment/Plan PICC LINE WEDNESDAY INR ELEVATED WILL CHECK AND ORDER VITAMIN K IF NECESSARY . IV ABX PAIN CONTROL SUPPORT AND F/U DISCUSSED WITH FAMILY FOR 30 MINUTES
[2016-12-12] MEDS ORDERED: PT OWN MED DRAWER 7, Y5N ONE (22:09)
[2016-12-12] MEDS: THIAMINE HCL 100 MG TABLET (FP) PO SCH (22:23)
[2016-12-13] MEDS: oxyCODONE HCL 5 MG TABLET PO PRN ×4 (00:07→18:37)
[2016-12-13] MEDS: ACETAMINOPHEN 325 MG TABLET (FP) PO PRN ×4 (00:07→18:36)
[2016-12-13] MEDS: PIPERACILLIN/TAZOB 3.375 GM/50 ML PRE-DOCKED IVPB SCH ×3 (03:08→17:33)
[2016-12-13] MEDS ORDERED: PT OWN MED DRAWER 7, Y5N ONE ×2 (04:31→09:46)
[2016-12-13] MEDS: hydrOXYzine HCL 10 MG TABLET PO PRN ×3 (04:33→21:08)
[2016-12-13] MEDS: FUROSEMIDE 100 MG/10 ML INJECTABLE VIAL IVPB SCH ×2 (06:17→13:36)
[2016-12-13 07:26] LABS: INR 2.35 (0.82-1.09); PROTHROMBIN TIME (PATIENT) 26.3 SEC (9.98-11.88)
[2016-12-13] MEDS: SPIRONOLACTONE 25 MG TABLET (FP) PO SCH (09:48)
[2016-12-13] MEDS: NADOLOL 20 MG TABLET (FP) PO SCH (09:49)
[2016-12-13] MEDS: PANTOPRAZOLE 20 MG TABLET (FP) PO SCH (09:49)
[2016-12-13] MEDS: FOLIC ACID 1 MG TABLET (FP) PO SCH (09:49)
[2016-12-13] MEDS: LACTULOSE 20 GM/30 ML UDC (FOR ORAL USE ONLY) PO SCH ×2 (09:49→21:08)
[2016-12-13] MEDS: VANCOMYCIN 1,250 MG in DEXTROSE 5%-WATER - 250 ML IVPB SCH (09:50)
[2016-12-13] MEDS: RIFAXIMIN 550 MG TABLET (UD) PO SCH ×2 (09:50→21:08)
[2016-12-13] MEDS: MULTIVITAMINS (DAILY MVI) TABLET (FP) PO SCH (09:50)
[2016-12-13] MEDS: HYDROCORTISONE 1% TOPICAL CREAM 30 GM TUBE TP SCH ×2 (09:51→21:09)
[2016-12-13] MEDS: THIAMINE HCL 100 MG TABLET (FP) PO SCH (21:08)
--- NOTE | 2016-12-13 21:45 | PN ---
Progress Note, Physician Chief Complaint: THIS IS MY FIRST ENCOUNTER WITH THIS PATIENT EVENTS AND CHART REVIEWED. IS BEDSIDE PATIENT C/O PAIN AND CAN NOT TOLERATE MEDICATIONS WITH LIVER DISEASE - Current Medication List Current Medications: Active Medications Acetaminophen (Tylenol -) 325 mg PO Q6H PRN PRN Reason: FEVER OR PAIN Last Admin: 12/13/16 18:36 Dose: 325 mg Folic Acid (Folic Acid -) 1 mg PO DAILY [facility] Last Admin: 12/13/16 09:49 Dose: 1 mg Furosemide (Lasix Injection -) 80 mg IVPB BID@0600,1400 [facility] Last Admin: 12/13/16 13:36 Dose: 80 mg Hydrocortisone (Hytone 1% Cream -) 1 applic TP BID [facility] Last Admin: 12/13/16 21:09 Dose: 1 applic Hydroxyzine HCl (Atarax -) 10 mg PO Q6H PRN PRN Reason: ITCHING Last Admin: 12/13/16 21:08 Dose: 10 mg Vancomycin HCl 1,250 mg/ (Dextrose) 250 mls @ 166.667 mls/hr IVPB DAILY [facility] PRN Reason: Protocol Last Admin: 12/13/16 09:50 Dose: 166.667 mls/hr Lactulose (Cephulac (Oral Use)) 20 gm PO BID [facility] Last Admin: 12/13/16 21:08 Dose: Not Given Multivitamins/Minerals/Vitamin C (Tab-A-Vit -) 1 tab PO DAILY [facility] Last Admin: 12/13/16 09:50 Dose: 1 tab Nadolol (Corgard -) 40 mg PO DAILY [facility] Last Admin: 12/13/16 09:49 Dose: 40 mg Oxycodone HCl (Roxicodone -) 5 mg PO Q6H PRN PRN Reason: PAIN Last Admin: 12/13/16 18:37 Dose: 5 mg Pantoprazole Sodium (Protonix -) 20 mg PO DAILY [facility] Last Admin: 12/13/16 09:49 Dose: 20 mg Piperacillin Sod/Tazobactam Sod (Zosyn 3.375gm Ivpb (Pre-Docked)) 3.375 gm IVPB Q8H-IV [facility] PRN Reason: Protocol Last Admin: 12/13/16 17:33 Dose: 3.375 gm Rifaximin (Xifaxan -) 550 mg PO BID [facility] Last Admin: 12/13/16 21:08 Dose: 550 mg Spironolactone (Aldactone -) 50 mg PO DAILY [facility] Last Admin: 12/13/16 09:48 Dose: 50 mg Thiamine HCl (Vitamin B1 -) 100 mg PO HS [facility] Last Admin: 12/13/16 21:08 Dose: 100 mg - Objective Vital Signs: Vital Signs Temperature 99 F 12/13/16 17:50 Pulse Rate 76 12/13/16 17:50 Respiratory Rate 20 12/13/16 17:50 Blood Pressure 115/64 12/13/16 17:50 O2 Sat by Pulse Oximetry (%) 100 12/12/16 21:00 Constitutional: Yes: Mild Distress Eyes: Yes: WNL HENT: Yes: WNL Neck: Yes: WNL Cardiovascular: Yes: WNL Respiratory: Yes: WNL Gastrointestinal: Yes: WNL Genitourinary: Yes: WNL Musculoskeletal: Yes: Muscle Weakness Extremities: Yes: Erythema Edema: Yes Edema: LLE: 2+, RLE: 2+ Integumentary: Yes: Rash Wound/Incision: Yes: Dressing Removed Neurological: Yes: Other ...Motor Strength: LLE, RLE Psychiatric: Yes: Other Labs: CBC, BMP 12/11/16 06:00 12/12/16 06:00 INR, PTT INR 2.35 (0.82-1.09) H 12/13/16 06:00 Problem List - Problems (1) Alcoholic cirrhosis Code(s): K70.30 - ALCOHOLIC CIRRHOSIS OF LIVER WITHOUT ASCITES (2) Anemia Code(s): D64.9 - ANEMIA, UNSPECIFIED (3) Cellulitis Code(s): L03.90 - CELLULITIS, UNSPECIFIED Qualifiers: Site of cellulitis: extremity Site of cellulitis of extremity: finger Laterality: left Qualified Code(s): L03.012 - Cellulitis of left finger (4) Leg edema Code(s): R60.0 - LOCALIZED EDEMA (5) Leukocytosis Code(s): D72.829 - ELEVATED WHITE BLOOD CELL COUNT, UNSPECIFIED Qualifiers: Leukocytosis type: unspecified Qualified Code(s): D72.829 - Elevated white blood cell count, unspecified (6) Liver cirrhosis Code(s): K74.60 - UNSPECIFIED CIRRHOSIS OF LIVER (7) Pruritic condition Code(s): L29.9 - PRURITUS, UNSPECIFIED (8) Fracture of rib of left side Code(s): S22.32XA - FRACTURE OF ONE RIB, LEFT SIDE, INIT FOR CLOS FX Qualifiers: Encounter type: initial encounter Rib fracture type: multiple ribs Fracture type: closed Qualified Code(s): S22.42XA - Multiple fractures of ribs, left side, initial encounter for closed fracture Assessment/Plan FFP 4 UNITS ORDERED FOR PICC LINE PLACEMENT LIVER TRANSPLANT REFERRAL F/U LABS OOB TO CHAIR PAIN CONTROL ETOH ABSTINENCE
[2016-12-14] MEDS: PIPERACILLIN/TAZOB 3.375 GM/50 ML PRE-DOCKED IVPB SCH (01:13)
[2016-12-14] MEDS: oxyCODONE HCL 5 MG TABLET PO PRN ×2 (01:13→06:29)
[2016-12-14] MEDS: ACETAMINOPHEN 325 MG TABLET (FP) PO PRN ×2 (01:18→06:29)
[2016-12-14] MEDS: hydrOXYzine HCL 10 MG TABLET PO PRN (02:56)
[2016-12-14] MEDS: FUROSEMIDE 100 MG/10 ML INJECTABLE VIAL IVPB SCH (06:29)
--- NOTE | 2016-12-14 08:02 | PN ---
Progress Note, Physician Chief Complaint: ID The finger is I would say 70% better then when I last examined is hand NO fever and remains on Vancoycin and Zosyn threapy empiric - Current Medication List Current Medications: Active Medications Acetaminophen (Tylenol -) 325 mg PO Q6H PRN PRN Reason: FEVER OR PAIN Last Admin: 12/14/16 06:29 Dose: 325 mg Folic Acid (Folic Acid -) 1 mg PO DAILY [facility] Last Admin: 12/13/16 09:49 Dose: 1 mg Furosemide (Lasix Injection -) 80 mg IVPB BID@0600,1400 [facility] Last Admin: 12/14/16 06:29 Dose: 80 mg Hydrocortisone (Hytone 1% Cream -) 1 applic TP BID [facility] Last Admin: 12/13/16 21:09 Dose: 1 applic Hydroxyzine HCl (Atarax -) 10 mg PO Q6H PRN PRN Reason: ITCHING Last Admin: 12/14/16 02:56 Dose: 10 mg Vancomycin HCl 1,250 mg/ (Dextrose) 250 mls @ 166.667 mls/hr IVPB DAILY [facility] PRN Reason: Protocol Last Admin: 12/13/16 09:50 Dose: 166.667 mls/hr Lactulose (Cephulac (Oral Use)) 20 gm PO BID [facility] Last Admin: 12/13/16 21:08 Dose: Not Given Multivitamins/Minerals/Vitamin C (Tab-A-Vit -) 1 tab PO DAILY [facility] Last Admin: 12/13/16 09:50 Dose: 1 tab Nadolol (Corgard -) 40 mg PO DAILY [facility] Last Admin: 12/13/16 09:49 Dose: 40 mg Oxycodone HCl (Roxicodone -) 5 mg PO Q6H PRN PRN Reason: PAIN Last Admin: 12/14/16 06:29 Dose: 5 mg Pantoprazole Sodium (Protonix -) 20 mg PO DAILY [facility] Last Admin: 12/13/16 09:49 Dose: 20 mg Piperacillin Sod/Tazobactam Sod (Zosyn 3.375gm Ivpb (Pre-Docked)) 3.375 gm IVPB Q8H-IV [facility] PRN Reason: Protocol Last Admin: 12/14/16 01:13 Dose: 3.375 gm Rifaximin (Xifaxan -) 550 mg PO BID [facility] Last Admin: 12/13/16 21:08 Dose: 550 mg Spironolactone (Aldactone -) 50 mg PO DAILY [facility] Last Admin: 12/13/16 09:48 Dose: 50 mg Thiamine HCl (Vitamin B1 -) 100 mg PO HS [facility] Last Admin: 12/13/16 21:08 Dose: 100 mg - Objective Vital Signs: Vital Signs Temperature 98.5 F 12/14/16 06:00 Pulse Rate 88 12/14/16 06:00 Respiratory Rate 20 12/14/16 06:00 Blood Pressure 135/68 12/14/16 06:00 O2 Sat by Pulse Oximetry (%) 100 12/12/16 21:00 Neck: Yes: WNL, Supple Cardiovascular: Yes: Regular Rate and Rhythm, S1, S2 Respiratory: Yes: WNL, Regular, CTA Bilaterally Gastrointestinal: Yes: Soft. No: Tenderness Extremities: Yes: Other (3rd finger swelling limited to prox phalanx and soft not fluctuant) Edema: Yes Labs: INR, PTT INR 2.35 (0.82-1.09) H 12/13/16 06:00 Assessment/Plan Microbiology 12/03/16 11:44 Urine - Urine Clean Catch Urine Culture - Final 12/03/16 11:44 Blood - Peripheral Venous Blood Culture - Final Staphylococcus Epidermidis 12/03/16 11:44 Blood - Peripheral Venous Blood Culture - Final NO GROWTH AFTER 5 DAYS INCUBATION Laboratory Tests 12/10/16 12/10/16 12/11/16 06:55 06:55 06:00 WBC 10.0 Hgb 9.3 L Hct 27.1 L ESR 85 H C-Reactive Protein 1.7 H Assessment I think given the degree of clinical improvement we could consider foregoing PICC line insertion and go wth oral therapy. Terrance recommend Linezolid and levofloxacin for 10 days. Some of this swelling may be due to tendon injury itself which will take time to heal. Vishal WOODWARD
[2016-12-14 08:15] LABS: MCH 33.4 pg (25.7-33.7); MCHC 34.8 g/dl (32.0-35.9); MEAN CELL VOLUME 95.9 fl (80-96); MEAN PLT VOLUME 8.7 fl (7.5-11.1); PLATELET COUNT 81 K/MM3 (134-434); RDW 17.7 % (11.9-15.9); WHITE BLOOD COUNT 9.5 K/mm3 (4.0-10.0)
[2016-12-14] MEDS ORDERED: LEVOFLOXACIN 500 MG TABLET (FP) PO SCH (08:30)
[2016-12-14 08:32] LABS: INR 2.25 (0.82-1.09); PROTHROMBIN TIME (PATIENT) 25.2 SEC (9.98-11.88)
[2016-12-14 08:52] LABS: ALBUMIN 1.9 g/dl (3.4-5.0); ANION GAP 7 (8-16); CALCIUM 8.4 mg/dL (8.5-10.1); CO2 30 mmol/L (21-32); COCKROFT - GAULT 105.13; CREATININE 1.1 mg/dL (0.7-1.3); GLUCOSE,RANDOM 100 mg/dL (74-106); SGOT/AST 73 U/L (15-37); SGPT/ALT 24 U/L (12-78)
[2016-12-14 08:54] LABS: ALK PHOS 100 U/L (45-117); BILIRUBIN,TOTAL 4.3 mg/dL (0.2-1.0); TOT PROT 8.1 g/dl (6.4-8.2)
[2016-12-14] MEDS: RIFAXIMIN 550 MG TABLET (UD) PO SCH (09:51)
[2016-12-14] MEDS: FOLIC ACID 1 MG TABLET (FP) PO SCH (09:52)
[2016-12-14] MEDS: PANTOPRAZOLE 20 MG TABLET (FP) PO SCH (09:52)
[2016-12-14] MEDS: NADOLOL 20 MG TABLET (FP) PO SCH (09:52)
[2016-12-14] MEDS: SPIRONOLACTONE 25 MG TABLET (FP) PO SCH (09:52)
[2016-12-14] MEDS: MULTIVITAMINS (DAILY MVI) TABLET (FP) PO SCH (09:52)
[2016-12-14] MEDS: HYDROCORTISONE 1% TOPICAL CREAM 30 GM TUBE TP SCH (09:52)
--- NOTE | 2016-12-14 09:52 | PN ---
Progress Note (short form) - Note Progress Note: Ortho Pt seen and examined with right hand/middle finger cellulitis-->improving Selected Entries 12/14/16 06:00 Temperature 98.5 F Pulse Rate 88 Respiratory 20 Rate Blood Pressure 135/68 Laboratory Tests 12/14/16 06:30 WBC 9.5 Hgb 9.1 L Hct 26.1 L Plt Count 81 L decr erythema, decr swelling and pain, incr rom nvi a/p Continue abx as per ID ROM exercises elevation d/c home today f/u with Dr. Tabares in 10-14 days d/w Dr. Tabares
[2016-12-14] MEDS: LACTULOSE 20 GM/30 ML UDC (FOR ORAL USE ONLY) PO SCH (09:55)
[2016-12-14] MEDS ORDERED: LINEZOLID 600 MG TABLET (RESTRICTED TO ID) PO SCH (10:00)
--- NOTE | 2016-12-14 10:30 | DS ---
Physical Examination Vital Signs: Vital Signs Temperature 98.5 F 12/14/16 06:00 Pulse Rate 88 12/14/16 06:00 Respiratory Rate 20 12/14/16 06:00 Blood Pressure 135/68 12/14/16 06:00 O2 Sat by Pulse Oximetry (%) 100 12/12/16 21:00 Constitutional: Yes: Calm Eyes: Yes: Sclera Icterus Cardiovascular: Yes: Regular Rate and Rhythm, S1, S2 Respiratory: Yes: CTA Bilaterally Gastrointestinal: Yes: Normal Bowel Sounds, Soft, Ascites Extremities: Yes: Other (left hand finger swelling erythema is less improving) Edema: Yes Labs: CBC, BMP 12/14/16 06:30 12/14/16 06:30 Discharge Summary Reason For Visit: CELLULITIS Current Active Problems Alcoholic cirrhosis (Acute) Anemia (Acute) Cellulitis (Acute) Leg edema (Acute) Leukocytosis (Acute) Liver cirrhosis (Acute) Pruritic condition (Acute) Hospital Course: Primary Care Physician PCP: Prakash English - Admission Chief Complaint: third digit swelling and pain History of Present Illness: 51-year-old male presents to the ED with worsening left third digit swelling redness and discomfort for the past week. Patient states went to [facility] yesterday, had an x-ray to rule out fracture since patient initially had a mechanical fall last week, sustaining a laceration. As per patient x-ray was negative and was given a prescription for clindamycin. As per patient did not fill his medication and she had called Dr. English to notify him of the visit before then referred him to the ER secondary to the redness and discomfort. Patient does have history of liver failure( decompensated ETOH cirrhosis) Followed by Dr. Bhakta. Patient also states unknown last tetanus. Timing/Duration: getting worse Severity: moderate Associated Symptoms: reports: fever/chills (chills), nausea/vomiting in ER noted to have elevated WBC got clindamycin and vancomycin elevated lactic acid History Source: Patient, Medical Record - Past Medical History Cardiovascular: Yes: HTN Gastrointestinal: Yes: Ascites Hepatobiliary: Yes: Cirrhosis (Alcohol induced), Other (History of severe alcoholic hepatitis, hepatic encephalopathy) Dermatology: Yes: Cellulitis (of LE ) 1.left hand finger cellultiis: WBC count trending down now is normal in hospital got zosyn and vancomycin and now dc on lineozlid and levaquin for 10 days seen by ortho no plans for Incision and drainage MRI shows tenosynovits and bone marrow edema of the finger 2.for leg edema iv lasix 80mg bid improving will change back to oral lasix 40mg po bid as sodium is trending down 3; cirrjhosis to follow up with dr Barajas at [facility] for liver transplant list registration- cotninue rifaximin, lactulose and nadalol d/w patient about FU with GI and PMD and ID Condition: Improved - Instructions Diet, Activity, Other Instructions: linezolid 600mg po bid for 10 days levaquin 500mg po daily for [address] english office for blood work in one week FU with dr Rodgers office in 10-14 days Referrals: Levi Rodgers MD [Staff Physician] - 2 Weeks Prakash English MD [Primary Care Provider] - 1 Week Disposition: HOME - Home Medications Comprehensive Discharge Medication List: Ambulatory Orders Clindamycin [Cleocin -] 300 mg PO TID 12/03/16 Gabapentin 300 mg PO TID 12/03/16 Glimepiride [Amaryl] 1 mg PO DAILY 12/03/16 Nadolol 40 mg PO DAILY 12/03/16 Pantoprazole Sodium [Protonix] 40 mg PO DAILY 12/03/16 Rifaximin [Xifaxan] 550 mg PO BID 12/03/16 Spironolactone 50 mg PO BID 12/03/16 Tramadol HCl 50 mg PO BID PRN 12/03/16 Furosemide [Lasix -] 40 mg PO BID 12/06/16
[2016-12-14 12:56] VITALS: BP 132/69; PULSE 92; TEMP 98.4
[2016-12-14] MEDS ORDERED: FUROSEMIDE 40 MG TABLET (FP) PO SCH (14:00)
== END 2016-12-14 13:06 | disposition home or self-care (01) | DRG 603 ==
LOC: JER 10:13 → JERBED 12:26 → J8W 17:20
PROVIDERS: ADMIT Family Medicine; ATTEND Family Medicine
PROC: 30233N1 Transfusion of Nonautologous Red Blood Cells into Peripheral Vein, Percutaneous Approach (ICD-10-PCS; principal; 2016-12-14)
DX: L03.012 Cellulitis of left finger (principal); R18.8 Other ascites; M65.9 Synovitis and tenosynovitis, unspecified; K70.30 Alcoholic cirrhosis of liver without ascites; D72.829 Elevated white blood cell count, unspecified; I10 Essential (primary) hypertension; D69.6 Thrombocytopenia, unspecified; D64.9 Anemia, unspecified; L29.9 Pruritus, unspecified; R60.0 Localized edema
CPT/HCPCS: 36415; 36430; 71010-TC; 73130-TC-LT; 73218-TC; 76705-TC; 80048; 80053; 80076; 81003; 81015; 82105; 82140; 82550; 82803; 83605; 83880; 84484; 85025; 85027; 85610; 85651; 85730; 86140; 86850; 86900; 86901; 86922; 87040; 87086; 87186; 90715; 93005; 93010; 97116-GP; 97161-GP; 99282-25; G0480; P9038; P9058

== ENCOUNTER 2016-12-21 15:53 | Inpatient (IN) | payer BC ==
--- NOTE | 2016-12-21 17:26 | PDOC ---
History of Present Illness - History of Present Illness Initial Comments: 12/21/16 18:17 Patient is a 51 year old male with significant medical hx of alcohol induced liver cirrhosis (with ascites), cellulitis, HTN, severe alcoholic hepatitis, and hepatic encephalopathy, who was recently discharged on 12/14, presenting to the ED with increased weakness and jaundice. Patient was recently discharged on 12/14 from a 10 day admission for left hand third digit cellulitis. Since his discharge, the patient has had worsening generalized weakness and jaundice. He also complains of worsening lower extremity swelling and chills. Patient came to the ED because his weakness and jaundice have gotten worse today. Denies any abdominal pain, nausea, vomiting, fever, complaints, dizziness, lightheadedness, or headaches. GI: Deshawn Bhakta MD PMD: Prakash Ahsley MD ID: Levi Rodgers MD <Ashley Boyce - Last Filed: 12/21/16 20:55> <Janna Christine - Last Filed: 12/21/16 21:19> - General Chief Complaint: Weakness Stated Complaint: Weakness Time Seen by Provider: 12/21/16 17:00 Past History <Ashley Boyce - Last Filed: 12/21/16 20:55> - Past Medical History HTN: Yes Liver Disease: Yes (cirrhosis) - Psycho/Social/Smoking Cessation Hx Anxiety: No Suicidal Ideation: No Smoking History: Never smoked Have you smoked in the past 12 months: No Information on smoking cessation initiated: No Hx Alcohol Use: No (PAST) Drug/Substance Use Hx: No Substance Use Type: None Hx Substance Use Treatment: No <Janna Christine - Last Filed: 12/21/16 21:19> - Past Medical History Allergies/Adverse Reactions: Allergies Allergy/AdvReac Type Severity Reaction Status Date / Time No Known Allergies Allergy Verified 12/03/16 10:20 Home Medications: Ambulatory Orders Nadolol 40 mg PO DAILY 12/03/16 Pantoprazole Sodium [Protonix] 40 mg PO DAILY 12/03/16 Rifaximin [Xifaxan -] 550 mg PO BID 12/03/16 Levofloxacin [Levaquin -] 500 mg PO DAILY@0600 #10 tablet MDD 1 12/14/16 Linezolid [Zyvox (Restricted To Id) -] 600 mg PO BID #20 tablet MDD 2 12/14/16 Spironolactone [Aldactone -] 50 mg PO DAILY #30 tablet MDD 1 12/14/16 Folic Acid 0.8 mg PO DAILY 12/21/16 Furosemide [Lasix] 40 mg PO BID 12/21/16 Hydroxyzine HCl [Atarax -] 25 mg PO QID 12/21/16 Magnesium 500 mg PO DAILY 12/21/16 Oxycodone HCl 5 mg PO Q6H PRN 12/21/16 Thiamine HCl [Vitamin B1] 100 mg PO DAILY 12/21/16 Review of Systems - Review of Systems Comments:: 12/21/16 18:18 CONSTITUTIONAL: Present: chills, generalized weakness Absent: fever, malaise, loss of appetite HEENT: Absent: rhinorrhea, nasal congestion, throat pain, throat swelling, difficulty swallowing, mouth swelling, ear pain, eye pain, visual changes CARDIOVASCULAR: Absent: chest pain, syncope, palpitations, irregular heart rate, lightheadedness , peripheral edema RESPIRATORY: Absent: cough, shortness of breath, dyspnea with exertion, orthopnea, wheezing, stridor, hemoptysis GASTROINTESTINAL: Absent: abdominal pain, abdominal distension, nausea, vomiting, diarrhea, constipation, melena, hematochezia GENITOURINARY: Absent: dysuria, frequency, urgency, hesitancy, hematuria, flank pain, genital pain MUSCULOSKELETAL: Present: lower extremity swelling Absent: myalgia, arthralgia SKIN: Present: jaundice Absent: rash, itching, pallor HEMATOLOGIC/IMMUNOLOGIC: Absent: easy bleeding, easy bruising, lymphadenopathy, frequent infections ENDOCRINE: Absent: unexplained weight gain, unexplained weight loss, heat intolerance, cold intolerance NEUROLOGIC: Absent: headache, focal weakness or paresthesia, dizziness, unsteady gait, seizure, mental status changes, bladder or bowel incontinence. PSYCHIATRIC: Absent: anxiety, depression, suicidal or homicidal ideation, hallucinations <Ashley Boyce - Last Filed: 12/21/16 20:55> *Physical Exam - Vital Signs Last Vital Signs Temp Pulse Resp BP Pulse Ox 98.3 F 100 H 20 127/70 96 12/21/16 15:58 12/21/16 15:58 12/21/16 15:58 12/21/16 15:58 12/21/16 17:44 - Physical Exam Comments: 12/21/16 18:22 GENERAL: Well developed, well nourished. Awake and alert. No acute distress. HEENT: Normocephalic, atraumatic. PERRLA, EOMI. No conjunctival pallor. Scleral icterus. Moist mucous membranes. Oropharynx is clear. NECK: Supple. Full ROM. No JVD. Carotid pulses 2+ and symmetric, without bruits. No thyromegaly. No lymphadenopathy. CARDIOVASCULAR: Tachycardic. No murmurs, rubs, or gallops. Distal pulses are 2+ and symmetric. PULMONARY: No evidence of respiratory distress. Lungs clear to auscultation bilaterally. No wheezing, rales or rhonchi. ABDOMINAL: Soft. Non-tender. Non-distended. No rebound or guarding. No organomegaly. Normoactive bowel sounds. MUSCULOSKELETAL: Normal range of motion at all joints. No bony deformities or tenderness. No CVA tenderness. EXTREMITIES: No cyanosis. No clubbing. Lower extremity pitting edema bilaterally. No calf tenderness. SKIN: Jaundice. Warm and dry. Normal capillary refill. No rashes. NEUROLOGICAL: Alert, awake, appropriate. Cranial nerves 2-12 intact. Normal speech. PSYCHIATRIC: Cooperative. Good eye contact. Appropriate mood and affect. <Ashley Boyce - Last Filed: 12/21/16 20:55> - Vital Signs Last Vital Signs Temp Pulse Resp BP Pulse Ox 98.3 F 100 H 20 127/70 96 12/21/16 15:58 12/21/16 15:58 12/21/16 15:58 12/21/16 15:58 12/21/16 15:58 <Janna Christine - Last Filed: 12/21/16 21:19> Heart Score/ECG Review #1 12/21/16 20:55 Normal sinus rhythm at 100 bpm Possible Left atrial enlargement Nonspecific ST and T wave abnormality Prolonged QT Abnormal ECG <Ashley Boyce - Last Filed: 12/21/16 20:55> ED Treatment Course - LABORATORY CBC & Chemistry Diagram: 12/21/16 18:00 12/21/16 18:00 - ADDITIONAL ORDERS Additional order review: Laboratory Results 12/21/16 18:15 VBG pH 7.42 POC VBG pCO2 45.6 POC VBG pO2 29.7 Mixed VBG HCO3 29.5 H - RADIOLOGY Radiograph Interpretation: 12/21/16 20:56 Chest X-Ray Impression: No significant interval change or acute lung disease is present. Reported By: Su Baca MD <Ashley Boyce - Last Filed: 12/21/16 20:55> - LABORATORY CBC & Chemistry Diagram: 12/21/16 18:00 12/21/16 18:00 <Janna Christine - Last Filed: 12/21/16 21:19> *DC/Admit/Observation/Transfer - Attestations Scribe Attestion: 12/21/16 18:24 Documentation prepared by Ashley Boyce, acting as biomedical service engineer for Janna Christine MD. <Ashley Boyce - Last Filed: 12/21/16 20:55> - Discharge Dispostion Admit: Yes <Janna Christine - Last Filed: 12/21/16 21:19> Diagnosis at time of Disposition: Leg edema, Jaundice, Lactic acidosis Liver cirrhosis Qualifiers: Hepatic cirrhosis type: alcoholic cirrhosis Ascites presence: without ascites Qualified Code(s): K70.30 - Alcoholic cirrhosis of liver without ascites Anemia Qualifiers: Anemia type: unspecified type Qualified Code(s): D64.9 - Anemia, unspecified - Referrals Referrals: Prakash Ashley MD [Primary Care Provider] -
[2016-12-21 18:15] LABS: VENOUS PH 7.42 (7.32-7.42)
[2016-12-21 18:16] LABS: VENOUS BLOOD GAS HCO3 29.5 meq/L (19-25)
[2016-12-21 18:33] LABS: MCH 33.3 pg (25.7-33.7); MCHC 34.4 g/dl (32.0-35.9); MEAN CELL VOLUME 96.8 fl (80-96); MEAN PLT VOLUME 8.7 fl (7.5-11.1); PLATELET COUNT 82 K/MM3 (134-434); RDW 17.6 % (11.9-15.9); WHITE BLOOD COUNT 8.5 K/mm3 (4.0-10.0)
[2016-12-21 18:34] LABS: BASOPHIL 0.7 % (0-2.0); NEUTROPHILS 63.8 % (42.8-82.8)
[2016-12-21 18:35] LABS: URINE APPEARANCE CLEAR; URINE BILIRUBIN NEGATIVE (NEGATIVE); URINE COLOR YELLOW; URINE GLUCOSE (UA) NEGATIVE (NEGATIVE); URINE KETONE NEGATIVE (NEGATIVE); URINE LEUK ESTERASE NEGATIVE (NEGATIVE); URINE NITRITE NEGATIVE (NEGATIVE); URINE PROTEIN NEGATIVE (NEGATIVE); URINE UROBILINOGEN NEGATIVE E.U./dl (0.2-1.0)
[2016-12-21 18:41] LABS: URINE BLOOD 3+ (NEGATIVE)
[2016-12-21 18:44] LABS: URINE HYALINE CAST 3 /lpf; URINE MUCUS RARE; URINE RBC 6 /hpf (0-3); URINE WBC 4 /hpf (3-5)
[2016-12-21] MEDS ORDERED: SODIUM CHLORIDE 1,000 ML IV STA (19:00)
[2016-12-21 19:30] LABS: INR 2.27 (0.82-1.09); PROTHROMBIN TIME (PATIENT) 25.4 SEC (9.98-11.88)
[2016-12-21 19:33] LABS: ACTIVATED PTT 42.2 SECONDS (26.9-34.4)
[2016-12-21] MEDS ORDERED: OXYCODONE/APAP 5/325MG COMBO TABLET ONE (19:43)
[2016-12-21] MEDS ORDERED: OXYCODONE/APAP 5/325MG COMBO TABLET PO ONE (19:49)
[2016-12-21 20:03] LABS: ANION GAP 15 (8-16); CALCIUM 8.9 mg/dL (8.5-10.1); CO2 27 mmol/L (21-32); COCKROFT - GAULT 96.37; CREATININE 1.2 mg/dL (0.7-1.3); GLUCOSE,RANDOM 139 mg/dL (74-106); SGOT/AST 69 U/L (15-37); SGPT/ALT 22 U/L (12-78); TOT PROT 8.7 g/dl (6.4-8.2)
[2016-12-21 20:06] LABS: ALK PHOS 106 U/L (45-117); TROPONIN I < 0.02 ng/ml (0.00-0.05)
[2016-12-22 00:09] VITALS: BMI 35.1
[2016-12-22] MEDS ORDERED: hydrOXYzine HCL 25 MG TABLET (FP) PO PRN (00:12)
[2016-12-22] MEDS: oxyCODONE HCL 5 MG TABLET PO PRN ×4 (02:09→22:20)
[2016-12-22] MEDS: FUROSEMIDE 40 MG TABLET (FP) PO SCH ×2 (05:55→14:08)
--- NOTE | 2016-12-22 08:34 | HP ---
Admitting History and Physical - Admission History of Present Illness: 51 year old male with significant medical hx of alcohol induced liver cirrhosis (with ascites), cellulitis, HTN, severe alcoholic hepatitis, and hepatic encephalopathy, who was recently discharged on 12/14, presenting to the ED with increased weakness and jaundice. Patient was recently discharged on 12/14 from a 10 day admission for left hand third digit cellulitis. Since his discharge, the patient has had worsening generalized weakness and jaundice. He also complains of worsening lower extremity swelling and chills. Patient came to the ED because his weakness and jaundice have gotten worse today. Denies any abdominal pain, nausea, vomiting, fever, complaints, dizziness, lightheadedness, or headaches. PT STATES LEGS LOOKED INFECTED---RED - Past Medical History Cardiovascular: Yes: HTN Gastrointestinal: Yes: Ascites Hepatobiliary: Yes: Cirrhosis (Alcohol induced), Other (History of severe alcoholic hepatitis, hepatic encephalopathy) Dermatology: Yes: Cellulitis (of LE ) - Advance Directives Advance Directives: Yes: Health Care Proxy - Smoking History Smoking history: Never smoked Have you smoked in the past 12 months: No - Alcohol/Substance Use Hx Alcohol Use: Yes (PAST) History of Substance Use: reports: None - Social History Occupation: disabled History of Recent Travel: No Home Medications - Allergies Allergies/Adverse Reactions: Allergies Allergy/AdvReac Type Severity Reaction Status Date / Time No Known Allergies Allergy Verified 12/03/16 10:20 - Home Medications Home Medications: Ambulatory Orders Nadolol 40 mg PO DAILY 12/03/16 Pantoprazole Sodium [Protonix] 40 mg PO DAILY 12/03/16 Rifaximin [Xifaxan -] 550 mg PO BID 12/03/16 Levofloxacin [Levaquin -] 500 mg PO DAILY@0600 #10 tablet MDD 1 12/14/16 Linezolid [Zyvox (Restricted To Id) -] 600 mg PO BID #20 tablet MDD 2 12/14/16 Spironolactone [Aldactone -] 50 mg PO DAILY #30 tablet MDD 1 12/14/16 Folic Acid 0.8 mg PO DAILY 12/21/16 Furosemide [Lasix] 40 mg PO BID 12/21/16 Hydroxyzine HCl [Atarax -] 25 mg PO QID 12/21/16 Magnesium 500 mg PO DAILY 12/21/16 Oxycodone HCl 5 mg PO Q6H PRN 12/21/16 Thiamine HCl [Vitamin B1] 100 mg PO DAILY 12/21/16 Review of Systems - Review of Systems Constitutional: reports: Chills, Loss of Appetite, Weakness Respiratory: reports: SOB on Exertion Gastrointestinal: reports: Nausea. denies: Abdominal Pain Genitourinary: reports: No Symptoms Neurological: reports: Dizziness, Weakness Physical Examination Vital Signs: Vital Signs Temperature 98.6 F 12/22/16 06:00 Pulse Rate 101 H 12/22/16 06:00 Respiratory Rate 20 12/22/16 06:00 Blood Pressure 123/67 12/22/16 06:00 O2 Sat by Pulse Oximetry (%) 96 12/22/16 00:12 Cardiovascular: Yes: Regular Rate and Rhythm Respiratory: Yes: Regular, CTA Bilaterally Gastrointestinal: Yes: Normal Bowel Sounds, Soft, Ascites. No: Tenderness Edema: Yes Problem List - Problems (1) Lactic acidosis Assessment/Plan: R/O INFECTION ON ABX CULTURES ID Code(s): E87.2 - ACIDOSIS (2) Anemia Assessment/Plan: FOLLOW LABS Code(s): D64.9 - ANEMIA, UNSPECIFIED Qualifiers: Anemia type: unspecified type Qualified Code(s): D64.9 - Anemia, unspecified (3) Jaundice Assessment/Plan: MONITOR LFT Code(s): R17 - UNSPECIFIED JAUNDICE (4) Leg edema Assessment/Plan: DIURETICS Code(s): R60.0 - LOCALIZED EDEMA (5) Liver cirrhosis Assessment/Plan: GI CONSULT CONTINUE WITH MEDS Code(s): K74.60 - UNSPECIFIED CIRRHOSIS OF LIVER Qualifiers: Hepatic cirrhosis type: alcoholic cirrhosis Ascites presence: without ascites Qualified Code(s): K70.30 - Alcoholic cirrhosis of liver without ascites
[2016-12-22 09:44] LABS: BASOPHIL 1.5 % (0-2.0); EOSINOPHIL 2.3 % (0-4.5); MCH 33.4 pg (25.7-33.7); MCHC 34.9 g/dl (32.0-35.9); MEAN CELL VOLUME 95.7 fl (80-96); MEAN PLT VOLUME 8.1 fl (7.5-11.1); NEUTROPHILS 53.8 % (42.8-82.8); PLATELET COUNT 64 K/MM3 (134-434); RDW 17.5 % (11.9-15.9); WHITE BLOOD COUNT 7.4 K/mm3 (4.0-10.0)
--- NOTE | 2016-12-22 09:48 | CON.GI ---
Consult Consult Specialty:: GI Referred by:: Dr. Prakash Ashley Reason for Consultation:: History of alcoholic cirrhosis - History of Present Illness Chief Complaint: I felt weak History of Present Illness: 51M admitted to [facility] for evaluation of weakness. He is a patient of Dr. Deshawn Bhakta who follows for decompensated alcoholic liver cirrhosis. He was admitted to [facility] recently for evaluation of swelling / erythema of the 3rd and 4th digits of his left hand. He was evaluated by ID and Ortho and diagnosed with cellulitis/tenosynovitis +/- Osteo. intermediate project manager abx were advised. He was discharged 12/14 on levofloxacin, Lasix, aldactone, oxycodone and was prescribed atarax for pruritus. Of note his weakness really began after atarax was introduced. and returned to the ER yesterday. He says he was feeling weak, particularly after starting atarax for worsening pruritus. He also describes worsening jaundice. He denies nausea, vomiting, abdominal pain, increasing abdominal girth, nausea, vomiting, rectal bleeding, melena or diarrhea. He does having chronic LE edema. He received 2 liters of NS in the ER - Past Medical History Cardio/Vascular: Yes: HTN Gastrointestinal: Yes: Ascites Hepatobiliary: Yes: Cirrhosis (Alcohol induced), Other (History of severe alcoholic hepatitis, hepatic encephalopathy) Dermatology: Yes: Cellulitis (of LE ) - Alcohol/Substance Use Hx Alcohol Use: Yes (PAST) History of Substance Use: reports: None - Smoking History Smoking history: Never smoked Have you smoked in the past 12 months: No - Social History Usual Living Arrangement: With Spouse Occupation: disabled History of Recent Travel: No Home Medications - Allergies Allergies/Adverse Reactions: Allergies Allergy/AdvReac Type Severity Reaction Status Date / Time No Known Allergies Allergy Verified 12/03/16 10:20 - Home Medications Home Medications: Ambulatory Orders Nadolol 40 mg PO DAILY 12/03/16 Pantoprazole Sodium [Protonix] 40 mg PO DAILY 12/03/16 Rifaximin [Xifaxan -] 550 mg PO BID 12/03/16 Levofloxacin [Levaquin -] 500 mg PO DAILY@0600 #10 tablet MDD 1 12/14/16 Linezolid [Zyvox (Restricted To Id) -] 600 mg PO BID #20 tablet MDD 2 05/15/17 Spironolactone [Aldactone -] 50 mg PO DAILY #30 tablet MDD 1 12/14/16 Folic Acid 0.8 mg PO DAILY 12/21/16 Furosemide [Lasix] 40 mg PO BID 12/21/16 Hydroxyzine HCl [Atarax -] 25 mg PO QID 12/21/16 Magnesium 500 mg PO DAILY 12/21/16 Oxycodone HCl 5 mg PO Q6H PRN 12/21/16 Thiamine HCl [Vitamin B1] 100 mg PO DAILY 12/21/16 Family Disease History - Family Disease History Other Family History: No family h/o colorectal cancer , liver dz. or other GI malignancy Review of Systems - Review of Systems Constitutional: reports: Weakness. denies: Chills, Fever Cardiovascular: denies: Chest Pain Respiratory: denies: SOB Gastrointestinal: denies: Abdominal Pain, Constipation, Diarrhea, Melena, Rectal Bleeding Neurological: denies: Change in LOC Physical Exam-GI Vital Signs: Vital Signs Temperature 98.1 F 12/22/16 09:44 Pulse Rate 110 H 12/22/16 09:44 Respiratory Rate 18 12/22/16 09:44 Blood Pressure 151/77 12/22/16 09:44 O2 Sat by Pulse Oximetry (%) 96 12/22/16 00:12 Constitutional: Yes: Calm Eyes: Yes: Sclera Icterus Cardiovascular: Yes: Tachycardia. No: Murmur Respiratory: Yes: Diminished (at bases b/l) Gastrointestinal Inspection: Yes: Distention (softly protuberant) ...Auscultate: Yes: Normoactive Bowel Sounds ...Palpate: No: Tenderness Edema: Yes Edema: LLE: 2+, RLE: 2+ Neurological: Yes: Alert, Oriented. No: [facility] Labs: INR, PTT INR 2.27 (0.82-1.09) H 12/21/16 18:00 CBC, BMP 12/22/16 09:30 12/22/16 09:30 Hepatic Panel Total Bilirubin 5.1 mg/dL (0.2-1.0) H 12/22/16 09:30 AST 71 U/L (15-37) H 12/22/16 09:30 ALT 20 U/L (12-78) 12/22/16 09:30 Alkaline Phosphatase 98 U/L (45-117) 12/22/16 09:30 Albumin 1.8 g/dl (3.4-5.0) L 12/22/16 09:30 Imaging - Results EKG: Report Reviewed (prolonged QT (previously normal)) Problem List - Problems (1) Jaundice Assessment/Plan: History of decompensated cirrhosis: elevated bilirubin from baseline ? if worsened by dehydration, ? if component of hemolysis Gentle IV hydration Code(s): R17 - UNSPECIFIED JAUNDICE (2) Anemia Assessment/Plan: No overt bleeding ? dilutional ? if hemolysis playing a role. ordered direct bili repeat CBC Code(s): D64.9 - ANEMIA, UNSPECIFIED Qualifiers: Anemia type: unspecified type Qualified Code(s): D64.9 - Anemia, unspecified (3) Liver cirrhosis Assessment/Plan: Spoke with Dr. Michelle Barajas @ [facility]. She has accepted Mr. Gottlieb for transfer for further OLT evaluation. Discussed with his and Dr. Ashley Daily weights I's and O's Recent AFP WNL, Recent Abd US: no evidence of hepatoma. Will likely need triple phase contrast imaging of liver Code(s): K74.60 - UNSPECIFIED CIRRHOSIS OF LIVER Qualifiers: Hepatic cirrhosis type: alcoholic cirrhosis Ascites presence: without ascites Qualified Code(s): K70.30 - Alcoholic cirrhosis of liver without ascites (4) Fatigue Assessment/Plan: ? if medication related Stopped atarax as it can interact with oxycodone (increased fatigue) as well as levaquin (prolonged QT noted on EKG) Code(s): R53.83 - OTHER FATIGUE
[2016-12-22] MEDS ORDERED: FOLIC ACID 1 MG TABLET (FP) PO SCH (10:00)
[2016-12-22] MEDS ORDERED: NADOLOL 20 MG TABLET (FP) PO SCH (10:00)
[2016-12-22] MEDS ORDERED: THIAMINE HCL 100 MG TABLET (FP) PO SCH (10:00)
[2016-12-22] MEDS ORDERED: MAGNESIUM OXIDE 400 MG TABLET (FP) PO SCH (10:00)
[2016-12-22] MEDS ORDERED: PANTOPRAZOLE 40 MG TABLET (FP) PO SCH (10:00)
[2016-12-22] MEDS ORDERED: SPIRONOLACTONE 25 MG TABLET (FP) PO SCH (10:00)
[2016-12-22] MEDS ORDERED: LEVOFLOXACIN 500 MG TABLET (FP) PO SCH (10:00)
--- NOTE | 2016-12-22 10:08 | CONSULT ---
Consultation: REQUESTING PROVIDER: CONSULT REQUEST: We have been asked to medically evaluate this patient for (ID). HISTORY OF PRESENT ILLNESS: 51M with PMH of alcohal liver cirrhosis, cellulitis , hepatic encephalopathy who was recently discharged from the hospital on 12/14 ( cellulitis, tenosynovitis, +/- osteo of left 3rd finger) Patient had recived vanco and zosyn in last hospital stay and was discharged on levofloxacin and linezolid for 10 days. he again came back to Er yesterday with a complain of feeling generalized weakness, dehydartion and jaundice. he says he was feeling weak, particularly after starting atarax for worsening pruritus. He also describes worsening jaundice. Patient states that he has lost weight after discharge from hospital, swelling in legs has decreased, swelling in finger has decreased movements in finger has increased, erythema has decreased. He denies nausea, vomiting, abdominal pain, increasing abdominal girth, nausea, vomiting, rectal bleeding or diarrhea. Denies fever and chills. Denies cough. Also states that yellowness of skin has increased, itching has increased. urine yellow, stool normal color, denies abdominal distension. REVIEW OF SYSTEMS: CONSTITUTIONAL: Absent: fever, chills, diaphoresis, generalized weakness, malaise, loss of appetite, HEENT: Absent: rhinorrhea, nasal congestion, throat pain, throat swelling, CARDIOVASCULAR: Absent: chest pain, syncope, palpitations, has chronic peripheral edema which has decreased RESPIRATORY: Absent: cough, shortness of breath, GASTROINTESTINAL: Absent: abdominal pain, abdominal distension, nausea, vomiting, diarrhea, GENITOURINARY: Absent: dysuria, frequency, urgency, hesitancy, SKIN: Absent: rash, itching, pallor PHYSICAL EXAMINATION Vital Signs - 24 hr 12/21/16 12/22/16 12/22/16 22:51 00:00 00:12 Temperature 98.6 F Pulse Rate 104 H Respiratory 19 20 Rate Blood Pressure 131/63 O2 Sat by Pulse 98 96 Oximetry (%) 12/22/16 12/22/16 06:00 09:44 Temperature 98.6 F 98.1 F Pulse Rate 101 H 110 H Respiratory 20 18 Rate Blood Pressure 123/67 151/77 O2 Sat by Pulse Oximetry (%) GENERAL: Awake, alert, and fully oriented, in no acute distress. HEAD: Normal with no signs of trauma. EARS, NOSE, THROAT: Ears normal, nares patent, erythematous oral mucosa. dry mucous membranes. NECK: Normal range of motion, supple without lymphadenopathy, LUNGS: Breath sounds equal, clear to auscultation bilaterally. No wheezes, and no crackles. No accessory muscle use. HEART: s1s2 normal ABDOMEN: Soft, nontender, normoactive bowel sounds, no guarding, no rebound, shifting dulness present, no fluid thrill UPPER EXTREMITIES: 2+ pulses, warm, 3rd finger left hand, swollen, mild erythematous on tarango aspect, warm to touch, PIP joint and MTP joint tender. moving all joint of finger. LOWER EXTREMITIES: 2+ pulses, warm, well-perfused. No calf tenderness. peripheral edema ++, no erythema, temp normal to touch in compare of other body parts . Laboratory Results - last 24 hr 12/22/16 09:30 WBC 7.4 RBC 2.28 L Hgb 7.6 L D Hct 21.9 L D MCV 95.7 MCHC 34.9 RDW 17.5 H Plt Count 64 L D MPV 8.1 Neutrophils % 53.8 Lymphocytes % 32.7 D Monocytes % 9.7 Eosinophils % 2.3 D Basophils % 1.5 Active Medications Generic Name Dose Route Start Last Admin Trade Name Freq PRN Reason Stop Dose Admin Folic Acid 1 mg 12/22/16 10:00 Folic Acid - PO DAILY VANITA Furosemide 40 mg 12/22/16 06:00 12/22/16 05:55 Lasix - PO 40 mg BID@0600,1400 VANITA Administration Hydroxyzine HCl 25 mg 12/22/16 00:12 Atarax - PO TID PRN FOR ITCHING Levofloxacin 500 mg 12/22/16 10:00 Levaquin - PO DAILY VANITA Linezolid 600 mg 12/23/16 22:00 Zyvox (Restricted To Id) - PO BID VANITA Linezolid 600 mg 12/23/16 10:00 Zyvox (Restricted To Id) - PO 12/23/16 10:01 ONCE ONE Magnesium Oxide 400 mg 12/22/16 10:00 Mag-Ox - PO BID VANITA Nadolol 40 mg 12/22/16 10:00 Corgard - PO DAILY VANITA Oxycodone HCl 5 mg 12/22/16 00:12 12/22/16 02:09 Roxicodone - PO 5 mg Q6H PRN Administration PAIN Pantoprazole Sodium 40 mg 12/22/16 10:00 Protonix - PO DAILY VANITA Rifaximin 550 mg 12/22/16 10:00 Xifaxan - PO BID VANITA Spironolactone 50 mg 12/22/16 10:00 Aldactone - PO DAILY VANITA Thiamine HCl 100 mg 12/22/16 10:00 Vitamin B1 - PO DAILY [facility] ASSESSMENT/PLAN: 51 y/o m with cellulitis, tenosynovitis, +/- osteomilitis with slow improvement Plan Patient has new qtc prolongation of 505, patient is on multiple medication which causes qtc prolongation, So in view of prolonged qtc and as patient is admitted in hospital will change from levofloxacin, linezolid to vanco and zosyn. will treat him for one more week, patient has taken antibiotics for 20 days, follow up esr and crp Dispo: We will continue to follow the patient. Thank you for this consultative opportunity. Visit type - Emergency Visit Emergency Visit: Yes ED Registration Date: 12/21/16 Care time: The patient presented to the Emergency Department on the above date and was hospitalized for further evaluation of their emergent condition. - New Patient This patient is new to me today: Yes Date on this admission: 12/22/16 - Critical Care Critical Care patient: No
[2016-12-22 10:11] LABS: ALBUMIN 1.8 g/dl (3.4-5.0); ANION GAP 8 (8-16); CALCIUM 8.3 mg/dL (8.5-10.1); CO2 28 mmol/L (21-32); COCKROFT - GAULT 128.8; CREATININE 0.9 mg/dL (0.7-1.3); GLUCOSE,RANDOM 101 mg/dL (74-106); SGPT/ALT 20 U/L (12-78)
[2016-12-22 10:14] LABS: ALK PHOS 98 U/L (45-117); BILIRUBIN,TOTAL 5.1 mg/dL (0.2-1.0); TOT PROT 7.7 g/dl (6.4-8.2)
[2016-12-22 10:21] LABS: SGOT/AST 71 U/L (15-37)
[2016-12-22 10:26] LABS: C-REACTIVE PROTEIN 1.9 MG/DL (0.00-0.3)
--- NOTE | 2016-12-22 11:19 | PN ---
Teaching Attending Note Name of Resident: Bhanu Yousif ATTENDING PHYSICIAN STATEMENT I saw and evaluated the patient. I reviewed the resident's note and discussed the case with the resident. I agree with the resident's findings and plan as documented. SUBJECTIVE: still some finger pain but overall improved more jaundiced, more fatigues no fevers or chills OBJECTIVE: Vital Signs Period Temp Pulse Resp BP Sys/Palmer Pulse Ox Last 24 Hr 98.1 F-98.6 F 92-110 18-20 123-151/63-79 96-98 +iterus cor-rrr lungs clear abd soft,nt ext finer with less swellling CBC, BMP 12/22/16 09:30 12/22/16 09:30 ASSESSMENT AND PLAN: soft tissue infection of the left 3rd finger- tenosynovitis/cellulitis- slow improvement was on po zyvox and levaquin now with QT prolongation on ekg will switch back to iv vanco/zosyn (empiric)- he is on day 20 of treatment would like to complete minimum of 4 weeks- f/u esr/crp should f/u with Dr Rodgers in the office advanced liver disease- for transfer to [facility] liver service
--- NOTE | 2016-12-22 11:23 | EKG ---
Test Reason : Blood Pressure : / mmHG Vent. Rate : 100 BPM Atrial Rate : 100 BPM P-R Int : 154 ms QRS Dur : 088 ms QT Int : 392 ms P-R-T Axes : 054 014 050 degrees QTc Int : 505 ms NORMAL SINUS RHYTHM POSSIBLE LEFT ATRIAL ENLARGEMENT NONSPECIFIC ST AND T WAVE ABNORMALITY PROLONGED QT ABNORMAL ECG WHEN COMPARED WITH ECG OF 04-DEC-2016 10:17, Confirmed by PAULINA MCKEON MD ([id number]) on 12/22/2016 11:23:27 AM Referred By: Confirmed By:PAULINA MCKEON MD
[2016-12-22] MEDS: RIFAXIMIN 550 MG TABLET (UD) PO SCH ×2 (11:30→21:59)
[2016-12-22 12:16] LABS: BILIRUBIN,DIRECT 1.6 mg/dL (0.0-0.2); MAGNESIUM 1.5 mg/dL (1.8-2.4); PHOSPHOROUS 3.4 mg/dL (2.5-4.9)
[2016-12-22] MEDS: PIPERACILLIN/TAZOB 3.375 GM/50 ML PRE-DOCKED IVPB SCH ×2 (13:15→19:56)
[2016-12-22] MEDS: VANCOMYCIN 1,250 MG in DEXTROSE 5%-WATER - 250 ML IVPB ONE (14:00)
[2016-12-22] MEDS ORDERED: VANCOMYCIN 1,250 MG in DEXTROSE 5%-WATER - 250 ML IVPB SCH (14:00)
[2016-12-22 15:50] LABS: ERYTHROCYTE SEDIMENTATION RATE 70 mm/hr (0-20)
[2016-12-22 19:53] VITALS: BP 124/73; PULSE 86; TEMP 97.9
[2016-12-22] MEDS ORDERED: PT OWN MED DRAWER 7, Y5N ONE ×2 (21:14→21:17)
[2016-12-23] MEDS ORDERED: VANCOMYCIN 1,250 MG in DEXTROSE 5%-WATER - 250 ML IVPB SCH (10:00)
[2016-12-23] MEDS ORDERED: LINEZOLID 600 MG TABLET (RESTRICTED TO ID) PO ONE (10:00)
[2016-12-23] MEDS ORDERED: LINEZOLID 600 MG TABLET (RESTRICTED TO ID) PO SCH (22:00)
== END 2016-12-22 22:40 | disposition short-term general hospital (02) | DRG 433 ==
LOC: JER 15:53 → JERBED 21:19 → J7W 23:43
PROVIDERS: ADMIT Family Medicine; ATTEND Family Medicine
DX: K70.30 Alcoholic cirrhosis of liver without ascites (principal); E87.2 Acidosis; I10 Essential (primary) hypertension; F10.10 Alcohol abuse, uncomplicated; D64.9 Anemia, unspecified; R53.83 Other fatigue; M65.842 Other synovitis and tenosynovitis, left hand; L03.012 Cellulitis of left finger; E86.0 Dehydration
CPT/HCPCS: 36415; 36430; 71010-TC; 80053; 81003; 81015; 82140; 82248; 82550; 82803; 83605; 83735; 84100; 84484; 85025; 85610; 85651; 85730; 86140; 86850; 86900; 86901; 86922; 87040; 87086; 93005; 93010; 99285-25; P9038; P9058

== ENCOUNTER 2017-02-18 07:10 | Emergency (ER) | payer BC, OTHER ==
[2017-02-18 07:16] VITALS: BMI 31.4
--- NOTE | 2017-02-18 08:08 | PDOC ---
History of Present Illness - General Chief Complaint: Revisit, Lab Variance Stated Complaint: PCP SENT Time Seen by Provider: 02/18/17 07:49 History Source: Patient Exam Limitations: No Limitations - History of Present Illness Initial Comments: CHIEF COMPLAINT: 52 y/o afebrile male with PMH HTN, liver disease sent in by Dr. Ashley for blood transfusion. HISTORY OF PRESENT ILLNESS: The patient states he did need a blood transfusion last year when he was "sick". He states he gets his blood work done every 2 weeks. His most recent check was Wednesday. Dr. Ashley called and told him to come in for "2 pints". He denies all symptoms, including f/c, n/v/d, CP, SOB, palpitations, dizziness, fatigue. PCP is Dr. Ashley Vital signs on arrival are notable for pulse of 97. REVIEW OF SYSTEMS: GENERAL/CONSTITUTIONAL: No fever/chills. No weakness. No weight change. HEAD, EYES, EARS, NOSE AND THROAT: No change in vision. No ear pain or discharge. No sore throat. CARDIOVASCULAR: No chest pain or shortness of breath. RESPIRATORY: No cough, wheezing, or hemoptysis. GASTROINTESTINAL: No abd pain, nausea, vomiting, diarrhea. GENITOURINARY: No dysuria, frequency, or change in urination. MUSCULOSKELETAL: No joint or muscle swelling or pain. No neck or back pain. SKIN: No rash or easy bruising. NEUROLOGIC: No headache, vertigo, loss of consciousness, or loss of sensation. PHYSICAL EXAM: GENERAL: The patient is awake, alert, and fully oriented, in no acute distress. HEAD: Normal with no signs of trauma. ENT: Pupils equal, round and reactive to light, extraocular movements intact, sclera anicteric, conjunctiva clear. LUNGS: Clear to auscultation bilaterally. Normal excursion. No respiratory distress or use of accessory muscles. CV: RRR, S1/S2, no MRG. Cap refill < 2 sec. ABDOMEN: Soft, non-distended, non-tender even to deep palpation, no hepatomegaly or splenomegaly, no masses. EXTREMITIES: Normal range of motion, no edema. NEUROLOGICAL: Normal speech, normal gait. CN II-XII grossly intact. PSYCH: Normal mood, normal affect. SKIN: Warm, dry, normal turgor, no rashes or lesions noted. Past History - Past Medical History Allergies/Adverse Reactions: Allergies Allergy/AdvReac Type Severity Reaction Status Date / Time No Known Allergies Allergy Verified 02/18/17 07:14 Home Medications: Ambulatory Orders Nadolol 40 mg PO DAILY 12/03/16 Pantoprazole Sodium [Protonix] 40 mg PO DAILY 12/03/16 Rifaximin [Xifaxan -] 550 mg PO BID 12/03/16 Spironolactone [Aldactone -] 50 mg PO DAILY #30 tablet MDD 1 12/14/16 Folic Acid 0.8 mg PO DAILY 12/21/16 Furosemide [Lasix] 40 mg PO BID 12/21/16 Hydroxyzine HCl [Atarax -] 25 mg PO QID 12/21/16 Magnesium 500 mg PO DAILY 12/21/16 Oxycodone HCl 5 mg PO Q6H PRN 12/21/16 Thiamine HCl [Vitamin B1] 100 mg PO DAILY 12/21/16 HTN: Yes Liver Disease: Yes (cirrhosis) - Psycho/Social/Smoking Cessation Hx Anxiety: No Suicidal Ideation: No Smoking History: Never smoked Have you smoked in the past 12 months: No Information on smoking cessation initiated: No Hx Alcohol Use: (quit August 2016) Drug/Substance Use Hx: No Substance Use Type: None Hx Substance Use Treatment: No *Physical Exam - Vital Signs Last Vital Signs Temp Pulse Resp BP Pulse Ox 98 F 97 H 18 136/76 100 02/18/17 07:12 02/18/17 07:12 02/18/17 07:12 02/18/17 07:12 02/18/17 07:12 Heart Score/ECG Review - ECG Intrepretation Comment:: Twelve-lead EKG was performed and reviewed by Dr. Corey. There is normal sinus rhythm with a normal rate. The axis is normal. The intervals are normal. There are no ST or T wave abnormalities. Impression: Normal twelve-lead EKG ED Treatment Course - LABORATORY CBC & Chemistry Diagram: 02/18/17 08:30 02/18/17 08:30 Medical Decision Making - Medical Decision Making A/P: 52 y/o male sent in by Dr. Ashley for blood transfusion. Pt is asymptomatic. Plan is as follows: 1. labs 2. EKG 3. Occult stool Occult stool - negative Hemoglobin - 8.[address] 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 She suggested that he get at least 1 unit. Pt is currently receiving 1 unit of PRBCs. Spoke with Dr. Ashley and he would like a CBC rechecked 2 hours after the blood is completed and if the H&H improves the patient can be discharged. The patient completed his transfusion at 11:45 and repeat CBC was ordered for 1: 45. At 1:20 the patient informs me that he is not going to wait any longer and he does not want his blood redrawn. He wants to sign out AMA. He informs me he is having blood work done again on Wednesday. I informed him that leaving prior to repeat blood work could result in worsening of condition, disability and even . He states he fully understands and wants to sign out anyway. The patient ambulates without difficulty out of the emergency department. He is alert and oriented and of sound decision making capacity. He leaves AGAINST MEDICAL ADVICE. AMA-AGAINST MEDICAL ADVICE The patient is a 52-year-old male who wants to leave the [facility] Emergency Department before assessment, diagnosis and treatment are completed. The patient has been counseled in regard to the benefits of remaining for treatment and the risks of leaving before medical evaluation and care are provided. These risks are many and include failure to diagnose the condition, failure to provide needed treatment, and a failure to obtain needed specialty care as required. The patient has been informed that failure to complete needed diagnosis and treatment may result in pain, worsening of any medical conditions, possible permanent disability, and . Despite receiving detailed information regarding the benefits of completing care as well as the risks of leaving, the patient has elected to leave. An AMA form was completed. The patient has been told that they are welcome to return to the emergency department at any time should their condition worsen or if they have change their mind. *DC/Admit/Observation/Transfer Diagnosis at time of Disposition: Anemia Qualifiers: Anemia type: unspecified type Qualified Code(s): D64.9 - Anemia, unspecified - Discharge Dispostion Disposition: AGAINST MEDICAL ADVICE Condition at time of disposition: Stable
[2017-02-18 08:45] LABS: BASOPHIL 1.5 % (0-2.0); EOSINOPHIL 1.3 % (0-4.5); MCH 32.7 pg (25.7-33.7); MCHC 33.8 g/dl (32.0-35.9); MEAN CELL VOLUME 96.8 fl (80-96); MEAN PLT VOLUME 8.9 fl (7.5-11.1); NEUTROPHILS 64.3 % (42.8-82.8); PLATELET COUNT 101 K/MM3 (134-434)
[2017-02-18 09:08] LABS: INR 2.31 (0.82-1.09); PROTHROMBIN TIME (PATIENT) 25.9 SEC (9.98-11.88)
[2017-02-18 09:12] LABS: ALBUMIN 2.4 g/dl (3.4-5.0); ALK PHOS 131 U/L (45-117); ANION GAP 9 (8-16); BILIRUBIN,TOTAL 4.4 mg/dL (0.2-1.0); CALCIUM 8.6 mg/dL (8.5-10.1); CO2 28 mmol/L (21-32); GLUCOSE,RANDOM 143 mg/dL (74-106); SGPT/ALT 23 U/L (12-78); TOT PROT 8.8 g/dl (6.4-8.2)
[2017-02-18 09:18] LABS: SGOT/AST 97 U/L (15-37)
--- NOTE | 2017-02-18 09:26 | PDOC ---
*Physical Exam - Vital Signs Last Vital Signs Temp Pulse Resp BP Pulse Ox 98 F 97 H 18 136/76 100 02/18/17 07:12 02/18/17 07:12 02/18/17 07:12 02/18/17 07:12 02/18/17 07:12 Heart Score/ECG Review #1 ECG reviewed & interpreted by me at: 12:53 02/18/17 12:53 Twelve-lead EKG was performed and reviewed by me. There is normal sinus rhythm with a normal rate of 88 bpm. The axis is normal. The intervals are normal - pr : 144ms, QRS:92ms, QTc:481ms. There are no ST elevations. ST depressions ? v3- v6. No t wave inversions ED Treatment Course - LABORATORY CBC & Chemistry Diagram: 02/18/17 08:30 02/18/17 08:30 Medical Decision Making - Medical Decision Making 02/18/17 08:24 52 yo M sent to the ER for re evaluation for anemia (seen by PMD) Plan is for transfusion Pt seen by Midlevel Provider under my direct supervision Ancillary studies reviewed I agree with plan as outlined by Midlevel Provider 02/18/17 10:04 Laboratory Tests 02/18/17 02/18/17 08:30 09:29 WBC 12.0 H D Hgb 8.0 L Hct 23.8 L Plt Count 101 L D Stool Occult Blood Negative Place on observation to Dr Ashley's service *DC/Admit/Observation/Transfer Diagnosis at time of Disposition: Anemia - Discharge Dispostion Disposition: AGAINST MEDICAL ADVICE Condition at time of disposition: Stable - Referrals Referrals: Prakash Ashley MD [Primary Care Provider] -
[2017-02-18 11:11] VITALS: TEMP 98.1
[2017-02-18 12:32] VITALS: BP 156/84; PULSE 99
--- NOTE | 2017-02-18 16:32 | EKG ---
Test Reason : Blood Pressure : / mmHG Vent. Rate : 088 BPM Atrial Rate : 088 BPM P-R Int : 144 ms QRS Dur : 092 ms QT Int : 398 ms P-R-T Axes : 047 010 048 degrees QTc Int : 481 ms NORMAL SINUS RHYTHM POSSIBLE LEFT ATRIAL ENLARGEMENT NONSPECIFIC ST ABNORMALITY PROLONGED QT ABNORMAL ECG WHEN COMPARED WITH ECG OF 21-DEC-2016 18:10, NO SIGNIFICANT CHANGE WAS FOUND Confirmed by DAVID RIZZO MD ([id number]) on 02/18/2017 4:32:07 PM Referred By: Confirmed By:DAVID RIZZO MD
== END 2017-02-18 13:30 | disposition left against medical advice (07) ==
LOC: JER 07:10
PROC: 30233N1 Transfusion of Nonautologous Red Blood Cells into Peripheral Vein, Percutaneous Approach (ICD-10-PCS; principal; 2017-02-18)
DX: D64.9 Anemia, unspecified (principal); I10 Essential (primary) hypertension; K74.60 Unspecified cirrhosis of liver
CPT/HCPCS: 36415; 36430; 80053; 82272; 85025; 85610; 86850; 86900; 86901; 86922; 93005; 93010; 99283-25; P9038; P9058

== ENCOUNTER 2017-03-16 23:50 | Inpatient (IN) | payer BC ==
[2017-03-17 01:29] LABS: BASOPHIL 0.9 % (0-2.0); EOSINOPHIL 1.9 % (0-4.5); MCH 34.2 pg (25.7-33.7); MCHC 34.5 g/dl (32.0-35.9); MEAN CELL VOLUME 99.1 fl (80-96); MEAN PLT VOLUME 9.4 fl (7.5-11.1); NEUTROPHILS 72.5 % (42.8-82.8); PLATELET COUNT 137 K/MM3 (134-434); RDW 18.1 % (11.9-15.9); WHITE BLOOD COUNT 16.3 K/mm3 (4.0-10.0)
--- NOTE | 2017-03-17 01:38 | PDOC ---
History of Present Illness - General Chief Complaint: Weakness Stated Complaint: SENT BY PCP/ FATIGUE Time Seen by Provider: 03/17/17 00:38 - History of Present Illness Initial Comments: 03/17/17 01:33 CHIEF COMPLAINT: PCP sent, transfusion HISTORY OF PRESENT ILLNESS: 51 year old male with significant medical hx of alcohol induced liver cirrhosis (with ascites), cellulitis, HTN, severe alcoholic hepatitis, and hepatic encephalopathy, sent by PCP Gabi for blood transfusion, CT of abdomen & pelvis, and CXR. Patient states he recently traveled to the [facility] where it was very cold and he developed a productive cough, which has mostly resolved at this time. No recent travel or sick contacts. PAST MEDICAL HISTORY: Denies past medical history FAMILY HISTORY: Denies SOCIAL HISTORY: Denies tobacco, alcohol, illicit drug use. SURGICAL HISTORY: Denies ALLERGIES: No known drug allergies REVIEW OF SYSTEMS General/Constitutional: Generalized weakness and feeling of "not being well." Denies fever or chills. HEENT: Denies change in vision. Denies ear pain or discharge. Denies sore throat. Cardiovascular: Denies chest pain or shortness of breath. Respiratory: Cough 2 weeks ago wheezing, or hemoptysis. Gastrointestinal: Denies nausea, vomiting, diarrhea or constipation. Denies rectal bleeding. Genitourinary: Denies dysuria, frequency, or change in urination. Musculoskeletal: Denies joint or muscle swelling or pain. Denies neck or back pain. Skin: Worsening jaundice. Denies rash or easy bruising. Neurologic: Denies headache, vertigo, loss of consciousness, or loss of sensation. PHYSICAL EXAM General Appearance: Well-appearing, appropriately dressed. No apparent distress , no intoxication. HEENT: EOMI, PERRLA, normal ENT inspection, normal voice, TMs normal, pharynx normal. No conjunctival pallor. No photophobia, scleral icterus. Neck: Supple. Trachea midline. No tenderness, rigidity, carotid bruit, stridor , lymphadenopathy, or thyromegaly. Respiratory/Chest: Fine crackles, to RLL. No shortness of breath, chest tenderness, respiratory distress, accessory muscle use. No crackles, rales, rhonchi, stridor, wheezing, dullness Cardiovascular: RRR. S1, S2. No JVD, murmur, bradycardia, tachycardia. Gastrointestinal/Abdominal: Markedly distended abdomen with hepatomegaly, nontender. Normal bowel sounds. Musculoskeletal/Extremities: 3+ pitting edema bilaterally. Normal inspection. FROM of all extremities, normal capillary refill. Pelvis Stable. No CVA tenderness. No tenderness to extremities, pedal edema, swelling, erythema or deformity. Integumentary: Appropriate color, dry, warm. 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 Fully oriented, alert. Appropriate mood/affect. Motor strength 5/5. No appreciable EOM palsy, facial droop or sensory deficit. Past History - Past Medical History Allergies/Adverse Reactions: Allergies Allergy/AdvReac Type Severity Reaction Status Date / Time No Known Allergies Allergy Verified 03/17/17 00:02 Home Medications: Ambulatory Orders Nadolol 40 mg PO DAILY 12/03/16 Pantoprazole Sodium [Protonix] 40 mg PO DAILY 12/03/16 Folic Acid 0.8 mg PO DAILY 12/21/16 Furosemide [Lasix] 80 mg PO BID 12/21/16 Magnesium 500 mg PO DAILY 12/21/16 Oxycodone HCl 5 mg PO Q6H PRN 12/21/16 Thiamine HCl [Vitamin B1] 100 mg PO DAILY 12/21/16 Rifaximin [Xifaxan -] 550 mg PO BID 03/17/17 Spironolactone 50 mg PO BID 03/17/17 Cefuroxime Axetil [Ceftin -] 500 mg PO Q12H #14 tablet 03/20/17 Furosemide [Lasix -] 80 mg PO BID@0600,1400 tablet 03/20/17 Hydroxyzine HCl [Atarax -] 25 mg PO Q6H PRN #0 tablet 03/20/17 Hydroxyzine HCl [Atarax -] 25 mg PO QID PRN #30 tab 03/20/17 Magnesium Oxide [Mag-Ox -] 400 mg PO BID tablet 03/20/17 Oxycodone HCl [Roxicodone -] 5 mg PO Q6H PRN #20 tablet MDD 4 03/20/17 Rifaximin [Xifaxan -] 550 mg PO BID tablet 03/20/17 HTN: Yes Liver Disease: Yes (cirrhosis) - Psycho/Social/Smoking Cessation Hx Anxiety: No Suicidal Ideation: No Smoking History: Never smoked Have you smoked in the past 12 months: No Information on smoking cessation initiated: No Hx Alcohol Use: Yes (In the past) Drug/Substance Use Hx: No Substance Use Type: None Hx Substance Use Treatment: No *Physical Exam - Vital Signs Last Vital Signs Temp Pulse Resp BP Pulse Ox 99.6 F 82 18 145/72 94 L 03/17/17 00:04 03/17/17 00:04 03/17/17 00:04 03/17/17 00:04 03/17/17 00:04 ED Treatment Course - LABORATORY CBC & Chemistry Diagram: 03/20/17 06:00 03/20/17 06:00 - RADIOLOGY Radiology Studies Ordered: Category Date Time Status CHEST PA & LAT [RAD] Stat Radiology 03/17/17 00:48 Ordered Medical Decision Making - Medical Decision Making 03/17/17 02:150 51 year old male with significant medical hx of alcohol induced liver cirrhosis (with ascites), cellulitis, HTN, severe alcoholic hepatitis, and hepatic encephalopathy, sent by PCP Gabi for blood transfusion, CT of abdomen & pelvis , and CXR. -CBC, CMP, PT/INR, T&S, Mg -CXR, EKG -2 units PRBC -A&P CT Patient's creatinine is 1.5, CT will be done w/o contrast. Labs: Laboratory Tests 03/17/17 03/17/17 03/17/17 01:20 01:20 01:20 WBC 16.3 H D RBC 2.46 L Hgb 8.4 L Hct 24.3 L Sodium 133 L BUN 29 H D Creatinine 1.5 H D Magnesium 1.5 L Total Bilirubin 3.7 H AST 67 H D 03/17/17 05:[address] results. CXR wet read indicates improvement from prior; no acute pathology seen at this time. 03/17/17 06:24 Discussed case with MD Ashley, still pending CT results. Patient admitted to med/surg per Gabi. *DC/Admit/Observation/Transfer Diagnosis at time of Disposition: Fatigue Qualifiers: Fatigue type: unspecified Qualified Code(s): R53.83 - Other fatigue Alcoholic cirrhosis Qualifiers: Ascites presence: with ascites Qualified Code(s): K70.31 - Alcoholic cirrhosis of liver with ascites Anemia Qualifiers: Anemia type: other cause Other causes of anemia: other cause, not classified Qualified Code(s): D64.89 - Other specified anemias - Discharge Dispostion Disposition: HOME Condition at time of disposition: Good Admit: Yes - Prescriptions - Referrals
[2017-03-17 01:43] LABS: INR 2.29 (0.82-1.09); PROTHROMBIN TIME (PATIENT) 25.6 SEC (9.98-11.88)
[2017-03-17 01:58] LABS: ALBUMIN 2.1 g/dl (3.4-5.0); ALK PHOS 121 U/L (45-117); ANION GAP 11 (8-16); BILIRUBIN,TOTAL 3.7 mg/dL (0.2-1.0); CALCIUM 8.1 mg/dL (8.5-10.1); CO2 32 mmol/L (21-32); CREATININE 1.5 mg/dL (0.7-1.3); GLUCOSE,RANDOM 159 mg/dL (74-106); SGOT/AST 67 U/L (15-37); SGPT/ALT 19 U/L (12-78); TOT PROT 8.5 g/dl (6.4-8.2)
[2017-03-17] MEDS ORDERED: oxyCODONE HCL 5 MG TABLET PO ONE (03:32)
[2017-03-17] MEDS ORDERED: oxyCODONE HCL 5 MG TABLET ONE ×2 (03:50→09:38)
[2017-03-17 04:15] LABS: URINE APPEARANCE CLEAR; URINE BILIRUBIN NEGATIVE (NEGATIVE); URINE BLOOD 3+ (NEGATIVE); URINE COLOR YELLOW; URINE GLUCOSE (UA) NEGATIVE (NEGATIVE); URINE KETONE NEGATIVE (NEGATIVE); URINE LEUK ESTERASE NEGATIVE (NEGATIVE); URINE NITRITE NEGATIVE (NEGATIVE); URINE PROTEIN NEGATIVE (NEGATIVE); URINE UROBILINOGEN 4.0 E.U/dl mg/dL (0.2-1.0)
[2017-03-17 04:33] LABS: URINE BACTERIA RARE /hpf (NONE SEEN); URINE HYALINE CAST 1 /lpf; URINE RBC 75 /hpf (0-3); URINE WBC 4 /hpf (3-5)
--- NOTE | 2017-03-17 06:42 | PDOC ---
*Physical Exam - Vital Signs Last Vital Signs Temp Pulse Resp BP Pulse Ox 99.6 F 82 18 145/72 95 03/17/17 00:04 03/17/17 00:04 03/17/17 00:04 03/17/17 00:04 03/17/17 01:29 ED Treatment Course - LABORATORY CBC & Chemistry Diagram: 03/17/17 01:20 03/17/17 01:20 - ADDITIONAL ORDERS Additional order review: Laboratory Results 03/17/17 03/17/17 03/17/17 04:00 01:54 01:20 INR Sodium Potassium Chloride Carbon Dioxide Anion Gap BUN Creatinine Creat Clearance w eGFR Random Glucose Lactic Acid 1.6 Calcium Magnesium 1.5 L Total Bilirubin AST ALT Alkaline Phosphatase Total Protein Albumin Urine Color Yellow Urine Appearance Clear Urine pH 6.0 Urine Protein Negative Urine Glucose (UA) Negative Urine Ketones Negative Urine Blood 3+ H Urine Nitrite Negative Urine Bilirubin Negative Urine Urobilinogen 4.0 e.u/dl Ur Leukocyte Esterase Negative Urine RBC 75 Urine WBC 4 Urine Bacteria Rare Hyaline Casts 1 Blood Type Antibody Screen Crossmatch 03/17/17 03/17/17 03/17/17 01:20 01:20 01:20 INR 2.29 H Sodium 133 L Potassium 3.5 Chloride 90 L Carbon Dioxide 32 Anion Gap 11 BUN 29 H D Creatinine 1.5 H D Creat Clearance w eGFR 48.77 Random Glucose 159 H Lactic Acid Calcium 8.1 L Magnesium Total Bilirubin 3.7 H AST 67 H D ALT 19 Alkaline Phosphatase 121 H Total Protein 8.5 H Albumin 2.1 L Urine Color Urine Appearance Urine pH Urine Protein Urine Glucose (UA) Urine Ketones Urine Blood Urine Nitrite Urine Bilirubin Urine Urobilinogen Ur Leukocyte Esterase Urine RBC Urine WBC Urine Bacteria Hyaline Casts Blood Type O POSITIVE Antibody Screen Negative Crossmatch See Detail 03/17/17 01:20 RBC 2.46 L MCV 99.1 H MCHC 34.5 RDW 18.1 H D MPV 9.4 Neutrophils % 72.5 Lymphocytes % 14.1 D Monocytes % 10.6 H Eosinophils % 1.9 Basophils % 0.9 - Medications Given in the ED: ED Medications Discontinued Medications Generic Name Dose Route Start Last Admin Trade Name Freq PRN Reason Stop Dose Admin Oxycodone HCl 5 mg 03/17/17 03:32 03/17/17 04:05 Roxicodone - PO 03/17/17 03:33 5 mg ONCE ONE Administration Medical Decision Making - Medical Decision Making 03/17/17 06:42 agree with care from JUANITO Avelar *DC/Admit/Observation/Transfer Diagnosis at time of Disposition: Fatigue Qualifiers: Fatigue type: unspecified Qualified Code(s): R53.83 - Other fatigue Alcoholic cirrhosis Qualifiers: Ascites presence: with ascites Qualified Code(s): K70.31 - Alcoholic cirrhosis of liver with ascites Anemia Qualifiers: Anemia type: other cause Other causes of anemia: other cause, not classified Qualified Code(s): D64.89 - Other specified anemias - Referrals Referrals: Prakash Ashley MD [Primary Care Provider] - - Patient Instructions - Post Discharge Activity
[2017-03-17] MEDS ORDERED: POTASSIUM CHLORIDE TABS 20 MEQ TABLET.ER (FP) PO ONE ×2 (06:49→06:59)
[2017-03-17] MEDS ORDERED: MAGNESIUM SULF 50% (8.12 MEQ/2 ML-1 GM VIAL) IVPB ONE (06:49)
[2017-03-17 08:05] LABS: MCH 33.3 pg (25.7-33.7); MCHC 34.3 g/dl (32.0-35.9); MEAN PLT VOLUME 9.2 fl (7.5-11.1); RDW 19.1 % (11.9-15.9); WHITE BLOOD COUNT 15.3 K/mm3 (4.0-10.0)
[2017-03-17] MEDS: oxyCODONE HCL 5 MG TABLET PO PRN ×2 (09:39→19:38)
[2017-03-17 09:53] LABS: PLATELET COUNT 122 K/MM3 (134-434); PLATELET ESTIMATE SLT DECREASED (NORMAL)
[2017-03-17 09:54] LABS: PLATELET COMMENT2 NO CLOTTING DETECTED
[2017-03-17] MEDS ORDERED: PANTOPRAZOLE 40 MG TABLET (FP) PO SCH (10:00)
[2017-03-17] MEDS ORDERED: FUROSEMIDE 40 MG/4 ML INJECTABLE VIAL IVPB SCH (10:00)
[2017-03-17] MEDS ORDERED: FUROSEMIDE 40 MG/4 ML INJECTABLE VIAL ONE (11:01)
[2017-03-17] MEDS ORDERED: PANTOPRAZOLE 40 MG TABLET (FP) ONE (11:01)
[2017-03-17] MEDS: THIAMINE HCL 100 MG TABLET (FP) PO SCH (11:02)
[2017-03-17] MEDS: NADOLOL 40 MG TABLET (FP) PO SCH (11:02)
[2017-03-17] MEDS: hydrOXYzine HCL 25 MG TABLET (FP) PO SCH ×2 (11:02→15:11)
[2017-03-17] MEDS: SPIRONOLACTONE 25 MG TABLET (FP) PO SCH (11:02)
[2017-03-17] MEDS ORDERED: AZITHROMYCIN IVPB 250 ML IVPB ONE (16:25)
[2017-03-17] MEDS ORDERED: CEFTRIAXONE 2 GM in DEXTROSE 5%-WATER 100 ML IVPB ONE (16:30)
--- NOTE | 2017-03-17 16:41 | EKG ---
Test Reason : Blood Pressure : / mmHG Vent. Rate : 080 BPM Atrial Rate : 080 BPM P-R Int : 142 ms QRS Dur : 090 ms QT Int : 428 ms P-R-T Axes : 053 011 040 degrees QTc Int : 493 ms NORMAL SINUS RHYTHM PROLONGED QT ABNORMAL ECG WHEN COMPARED WITH ECG OF 18-FEB-2017 08:29, NO SIGNIFICANT CHANGE WAS FOUND Confirmed by WAGNER LOYD MD ([id number]) on 03/17/2017 4:41:06 PM Referred By: Confirmed By:WAGNER LOYD MD
--- NOTE | 2017-03-17 16:48 | HP ---
Admitting History and Physical - Primary Care Physician PCP: Prakash Ashley - Admission Chief Complaint: Anemia, Pneumonia History of Present Illness: 51 year old male with significant medical hx of alcohol induced liver cirrhosis (with ascites), cellulitis, HTN, severe alcoholic hepatitis, and hepatic encephalopathy, on liver transplant list-sees Dr Barajas, sent by PCP Gabi for blood transfusion. CT of abdomen & pelvis, and CXR showed BLLL pneumonia with leukocytosis. Patient states he recently had been increasing SOB. Denies any cough, fever, chills or fatigue. Recently came back [place] [facility]. No recent sick contacts. History Source: Patient Limitations to Obtaining History: No Limitations - Past Medical History Cardiovascular: Yes: HTN Gastrointestinal: Yes: Ascites Hepatobiliary: Yes: Cirrhosis (Alcohol induced), Other (History of severe alcoholic hepatitis, hepatic encephalopathy) Dermatology: Yes: Cellulitis (of LE ) - Smoking History Smoking history: Never smoked Have you smoked in the past 12 months: No - Alcohol/Substance Use Hx Alcohol Use: Yes (In the past) History of Substance Use: reports: None - Social History Occupation: disabled History of Recent Travel: No Home Medications - Allergies Allergies/Adverse Reactions: Allergies Allergy/AdvReac Type Severity Reaction Status Date / Time No Known Allergies Allergy Verified 03/17/17 00:02 - Home Medications Home Medications: Ambulatory Orders Nadolol 40 mg PO DAILY 12/03/16 Pantoprazole Sodium [Protonix] 40 mg PO DAILY 12/03/16 Folic Acid 0.8 mg PO DAILY 12/21/16 Furosemide [Lasix] 80 mg PO BID 12/21/16 Hydroxyzine HCl [Atarax -] 25 mg PO QID PRN 12/21/16 Magnesium 500 mg PO DAILY 12/21/16 Oxycodone HCl 5 mg PO Q6H PRN 12/21/16 Thiamine HCl [Vitamin B1] 100 mg PO DAILY 12/21/16 Rifaximin [Xifaxan] 550 mg PO BID 03/17/17 Spironolactone 50 mg PO BID 03/17/17 Review of Systems - Review of Systems Constitutional: reports: No Symptoms Eyes: reports: No Symptoms HENT: reports: No Symptoms Neck: reports: No Symptoms Cardiovascular: reports: Edema (BLLE), Shortness of Breath Respiratory: reports: SOB on Exertion Gastrointestinal: reports: No Symptoms Genitourinary: reports: No Symptoms Breasts: reports: No Symptoms Reported Musculoskeletal: reports: No Symptoms Integumentary: reports: No Symptoms Neurological: reports: No Symptoms Endocrine: reports: No Symptoms Hematology/Lymphatic: reports: No Symptoms Psychiatric: reports: No Symptoms Physical Examination Vital Signs: Vital Signs Temperature 97 F L 03/17/17 14:48 Pulse Rate 72 03/17/17 14:48 Respiratory Rate 20 03/17/17 14:48 Blood Pressure 128/67 03/17/17 14:48 O2 Sat by Pulse Oximetry (%) 98 03/17/17 14:48 Constitutional: Yes: Well Nourished, No Distress, Calm Cardiovascular: Yes: Regular Rate and Rhythm Respiratory: Yes: Regular Gastrointestinal: Yes: Normal Bowel Sounds, Soft, Abdomen, Obese, Ascites Musculoskeletal: Yes: WNL Edema: Yes Edema: LLE: 2+, RLE: 2+ Peripheral Pulses WNL: Yes Neurological: Yes: Alert, Oriented Psychiatric: Yes: Alert, Oriented Labs: CBC, BMP 03/17/17 07:40 Imaging - Results Chest X-ray: Report Reviewed Cat Scan: Report Reviewed Problem List - Problems (1) Alcoholic cirrhosis Assessment/Plan: -chronic -GI consult -on liver transplant list -defer tap for ascitis Code(s): K70.30 - ALCOHOLIC CIRRHOSIS OF LIVER WITHOUT ASCITES Qualifiers: Ascites presence: with ascites Qualified Code(s): K70.31 - Alcoholic cirrhosis of liver with ascites (2) Anemia Assessment/Plan: -recieved 2 units PRBC -repeat labs in AM -GI consult Code(s): D64.9 - ANEMIA, UNSPECIFIED Qualifiers: Anemia type: other cause Other causes of anemia: other cause, not classified Qualified Code(s): D64.89 - Other specified anemias (3) Leukocytosis Assessment/Plan: secondary to PNE ID consult IV abx Code(s): D72.829 - ELEVATED WHITE BLOOD CELL COUNT, UNSPECIFIED Qualifiers: Leukocytosis type: unspecified Qualified Code(s): D72.829 - Elevated white blood cell count, unspecified (4) Community acquired pneumonia Assessment/Plan: -IV abx Code(s): J18.9 - PNEUMONIA, UNSPECIFIED ORGANISM Assessment/Plan -s/p 2 units of PRBC -labs in AM -IV abx -GI,ID,Pulmonary and renal consult -elevate BLLE to decrease edema
--- NOTE | 2017-03-17 17:09 | CONSULT ---
Consultation: REQUESTING PROVIDER: CONSULT REQUEST: We have been asked to medically evaluate this patient for ( specify). HISTORY OF PRESENT ILLNESS: Patient is a 52 yo M with a history of alcohol induced liver cirrhosis, cellulitis 2 months ago, HTN, severe alcoholic hepatitis, was sent by Dr. Ashley for a blood transfusion, abdominal CT, and CXR for abnormal labs. He complains of fatigue and a productive cough (green phlegm) that started a week ago after traveling to [facility] where he said it was cold. He denies fever, n/v, chills, chest pain, sob, night sweats, and weight loss. REVIEW OF SYSTEMS: CONSTITUTIONAL: generalized weakness Absent: fever, chills, diaphoresis, malaise, loss of appetite, weight change HEENT: Absent: rhinorrhea, nasal congestion, throat pain, throat swelling, difficulty swallowing, mouth swelling, ear pain, eye pain, visual changes CARDIOVASCULAR: Absent: chest pain, syncope, palpitations, irregular heart rate, lightheadedness , peripheral edema RESPIRATORY: productive cough Absent: shortness of breath, dyspnea with exertion, orthopnea, wheezing, stridor, hemoptysis GASTROINTESTINAL: Absent: abdominal pain, abdominal distension, nausea, vomiting, diarrhea, constipation, melena, hematochezia GENITOURINARY: Absent: dysuria, frequency, urgency, hesitancy, hematuria, flank pain, genital pain MUSCULOSKELETAL: Absent: myalgia, arthralgia, joint swelling, back pain, neck pain SKIN: Absent: rash, itching, pallor HEMATOLOGIC/IMMUNOLOGIC: Absent: easy bleeding, easy bruising, lymphadenopathy, frequent infections ENDOCRINE: Absent: unexplained weight gain, unexplained weight loss, heat intolerance, cold intolerance NEUROLOGIC: Absent: headache, focal weakness or paresthesias, dizziness, unsteady gait, seizure, mental status changes, bladder or bowel incontinence PSYCHIATRIC: Absent: anxiety, depression, suicidal or homicidal ideation, hallucinations. PHYSICAL EXAMINATION Vital Signs - 24 hr 03/17/17 03/17/17 03/17/17 06:45 07:00 07:41 Temperature 98.3 F 98.4 F 98.1 F Pulse Rate [ 79 80 77 Apical] Respiratory 18 18 18 Rate Blood Pressure 128/65 126/65 136/70 [Arm] Blood Pressure [Right Arm] O2 Sat by Pulse 95 95 100 Oximetry (%) 03/17/17 03/17/1717 09:26 09:42 10:30 Temperature 98.7 F 98.2 F Pulse Rate [ 78 73 Apical] Respiratory 18 18 Rate Blood Pressure 132/70 129/62 [Arm] Blood Pressure [Right Arm] O2 Sat by Pulse 100 99 99 Oximetry (%) 03/17/17 03/17/17 12:40 14:48 Temperature 98.2 F 97 F L Pulse Rate [ 67 72 Apical] Respiratory 18 20 Rate Blood Pressure 139/77 [Arm] Blood Pressure 128/67 [Right Arm] O2 Sat by Pulse 99 98 Oximetry (%) GENERAL: Awake, alert, and fully oriented, in no acute distress. HEAD: Normal with no signs of trauma. EYES: Pupils equal, round and reactive to light, extraocular movements intact, scleral icterus, conjunctiva clear. No lid lag. EARS, NOSE, THROAT: Ears normal, nares patent, oropharynx clear without exudates. Moist mucous membranes. NECK: Normal range of motion, supple without lymphadenopathy, JVD, or masses. LUNGS: Breath sounds equal, clear to auscultation bilaterally. No wheezes, and no crackles. No accessory muscle use. HEART: Regular rate and rhythm, normal S1 and S2 without murmur, rub or gallop. ABDOMEN: soft, obese, nontender, distended, hepatomegaly, ascities MUSCULOSKELETAL: Normal range of motion at all joints. No bony deformities or tenderness. No CVA tenderness. UPPER EXTREMITIES: 2+ pulses, warm, well-perfused. No cyanosis. No clubbing. Cap refill <2 seconds. No peripheral edema. LOWER EXTREMITIES: 2+ pulses, warm, well-perfused. No calf tenderness. 3+ LE edema PSYCHIATRIC: Cooperative. Good eye contact. Appropriate mood and affect. SKIN: Warm, dry, normal turgor, no rashes or lesions noted. Laboratory Results - last 24 hr 03/17/17 03/17/17 07:40 07:40 WBC 15.3 H RBC 2.59 L Hgb 8.6 L Hct 25.1 L MCV 97.0 H MCH 33.3 MCHC 34.3 RDW 19.1 H Plt Count 122 L MPV 9.2 Platelet Estimate Slt decreased Platelet Comment No clotting detected B-Natriuretic Peptide 2222.17 H Active Medications Generic Name Dose Route Start Last Admin Trade Name Freq PRN Reason Stop Dose Admin Azithromycin 250 mg 08/17/17 10:00 Zithromax - PO DAILY [facility] Furosemide 40 mg 03/17/17 10:00 03/17/17 11:02 Lasix Injection - IVPB 40 mg DAILY [facility] Administration Ceftriaxone Sodium 2 gm/ 100 mls @ 100 mls/hr 03/17/17 16:30 Dextrose IVPB 03/17/17 17:29 ONCE ONE Azithromycin 250 mls @ 250 mls/hr 03/17/17 16:25 Zithromax 500mg Ivpb (Pre-Docked) IVPB 03/17/17 17:24 ONCE ONE Ceftriaxone Sodium 2 gm/ 100 mls @ 200 mls/hr 03/18/17 10:00 Dextrose IVPB DAILY [facility] Nadolol 40 mg 03/17/17 10:00 03/17/17 11:02 Corgard - PO 40 mg DAILY [facility]ITA Administration Oxycodone HCl 5 mg 03/17/17 06:48 03/17/17 09:39 Roxicodone - PO 5 mg Q6H PRN Administration PAIN Pantoprazole Sodium 40 mg 03/17/17 10:00 03/17/17 11:02 Protonix - PO 40 mg DAILY [facility] Administration Spironolactone 50 mg 03/17/17 10:00 03/17/17 11:02 Aldactone - PO 50 mg DAILY [facility] Administration Thiamine HCl 100 mg 03/17/17 10:00 03/17/17 11:02 Vitamin B1 - PO 100 mg DAILY [facility] Administration ASSESSMENT/PLAN: Patient is a 52 yo M with a history of alcohol induced liver cirrhosis, HTN, severe alcoholic hepatitis, was sent by Dr. Ashley because of abnormal labs and admitted for CAP and anemia. Dispo: We will continue to follow the patient. Thank you for this consultative opportunity. Problem List - Problems (1) Community acquired pneumonia Assessment/Plan: F/up with blood, urine cultures, and urine antigens Start Rocephin 2grams and zithromax 250mg Chest CT revealed suspicion of pneumonia Code(s): J18.9 - PNEUMONIA, UNSPECIFIED ORGANISM Visit type - Emergency Visit Emergency Visit: Yes ED Registration Date: 03/17/17 Care time: The patient presented to the Emergency Department on the above date and was hospitalized for further evaluation of their emergent condition. - New Patient This patient is new to me today: No - Critical Care Critical Care patient: No
--- NOTE | 2017-03-17 17:17 | PN ---
Progress Note (short form) - Note Progress Note: Consult Dictated
--- NOTE | 2017-03-17 17:40 | PN ---
Teaching Attending Note Name of Resident: Ilia Hurtado ATTENDING PHYSICIAN STATEMENT I saw and evaluated the patient. I reviewed the resident's note and discussed the case with the resident. I agree with the resident's findings and plan as documented. SUBJECTIVE: OBJECTIVE: ASSESSMENT AND PLAN: pneumonia CAP rocephin/zith cultures urinary antigens as ordered liver cirrhosis Problem List - Problems (1) Community acquired pneumonia Code(s): J18.9 - PNEUMONIA, UNSPECIFIED ORGANISM (2) Alcoholic cirrhosis Code(s): K70.30 - ALCOHOLIC CIRRHOSIS OF LIVER WITHOUT ASCITES Qualifiers: Ascites presence: with ascites Qualified Code(s): K70.31 - Alcoholic cirrhosis of liver with ascites
[2017-03-17] MEDS ORDERED: DEXTROSE 5%-WATER 100 ML IVPB ONE (18:32)
[2017-03-17] MEDS: MAGNESIUM OXIDE 400 MG TABLET (FP) PO SCH (21:35)
[2017-03-18] MEDS: oxyCODONE HCL 5 MG TABLET PO PRN ×3 (01:48→22:07)
--- NOTE | 2017-03-18 07:42 | CONS ---
DATE OF CONSULTATION: DATE OF DICTATION: 03/17/2017 REQUESTING PHYSICIAN: Prakash Ashley MD HISTORY OF PRESENT ILLNESS: The patient is a 52-year-old male admitted through [facility] having been told by his primary care physician that he needed a blood transfusion. He has a history of alcoholic cirrhosis and he is currently on the transplant list at [facility]. His MELD score is 25. He denies any abdominal pain, any worsening of his lower extremity edema. He states that he has had workup at [facility], including upper endoscopy and colonoscopy. He alludes to having a variceal band ligation performed at [facility] as well. He denies any change in mentation, vomiting of blood, diarrhea, change in bowel habits, or abdominal pain. PAST MEDICAL HISTORY: Includes hypertension, alcoholic cirrhosis with sequelae of ascites and esophageal varices. Also has a history of cellulitis of the lower extremity and he had a cellulitis/tenosynovitis plus or minus osteomyelitis of the 3rd and 4th digits of his left hand. SOCIAL HISTORY: He is an ex-alcohol abuser. No history of drug abuse. He is . He is living with his spouse. He is disabled. MEDICATIONS PRIOR TO ADMISSION: Include Protonix, nadolol, thiamin, magnesium, hydroxyzine, folic acid, oxycodone, Lasix, rifaximin, and spironolactone. REVIEW OF SYSTEMS: He did complain of some sinus congestion. He then states that he may have had a cough. He denies any urinary symptomatology. No abdominal pain, nausea, vomiting. No unintentional weight loss. PHYSICAL EXAMINATION:General: Patient was found lying on his bed. He appeared to be in no apparent distress. Vital Signs: He is afebrile with a pulse of 72, blood pressure 128/67. HEENT: Sclerae were mildly icteric. Neck: Supple. Heart: Revealed a regular rate and rhythm. Lungs: Clear to auscultation bilaterally. Abdomen: Softly protuberant. He had normoactive bowel sounds. There is no fluid wave. No hepatosplenomegaly was appreciated. No masses were palpated. No hernia was detected. No tenderness was elicited. Extremities: Revealed 2+ lower extremity edema. Neurological: The patient was awake, alert, and oriented. There was no asterixis. LABORATORY EVALUATION: White blood count 15.3, hemoglobin 8.6, hematocrit 25.1, MCV of 97, platelets of 122. Of note, yesterday on admission his hemoglobin was 8.4. INR of 2.29. Sodium of 133, potassium 3.5, chloride 90, bicarbonate 32, BUN of 29, creatinine 1.5, glucose of 159, AST of 67, ALT of 19, alkaline phosphatase 121, total bilirubin 3.7, albumin of 2.1, total protein 8.5. His lactic acid was 1.6 and his MELD score is 25. RADIOLOGY REPORTS: He had a CT scan of the abdomen and pelvis revealing mild splenomegaly, slightly lobulated liver contour, moderate amount of ascites, sludge versus small stones in the gallbladder, no evidence of bowel obstruction, as well as he was also noticed to have bilateral lower lobe and lingular segmental airspace disease consistent with pneumonia. IMPRESSION: A 52-year-old male with decompensated alcoholic cirrhosis on transplant list at [facility], currently now being treated for a suspected pneumonia. His abdominal exam is benign. RECOMMENDATIONS: I would continue his current medication regimen. I did advise stopping proton pump inhibitor therapy in the setting of cirrhosis and ascites. Also, urinalysis revealed 3+ blood as well as RBCs in his urine. This will need to be followed up by primary team and please recall as needed. The patient has followup at [facility] with Dr. Michelle Barajas for transplant purposes. I thank you for this consultative opportunity. DAVID RICH DO [id number]
[2017-03-18 07:54] LABS: ALK PHOS 121 U/L (45-117); ANION GAP 7 (8-16); BILIRUBIN,TOTAL 4.9 mg/dL (0.2-1.0); CALCIUM 7.8 mg/dL (8.5-10.1); CO2 33 mmol/L (21-32); CREATININE 1.5 mg/dL (0.7-1.3); GLUCOSE,RANDOM 119 mg/dL (74-106); MAGNESIUM 1.7 mg/dL (1.8-2.4); SGOT/AST 60 U/L (15-37); SGPT/ALT 17 U/L (12-78); TOT PROT 8.4 g/dl (6.4-8.2)
[2017-03-18 08:11] LABS: BASOPHIL 0.5 % (0-2.0); EOSINOPHIL 2.2 % (0-4.5); MCH 33.5 pg (25.7-33.7); MCHC 34.9 g/dl (32.0-35.9); MEAN PLT VOLUME 9.7 fl (7.5-11.1); NEUTROPHILS 68.4 % (42.8-82.8); WHITE BLOOD COUNT 15.2 K/mm3 (4.0-10.0)
--- NOTE | 2017-03-18 08:45 | PN ---
Progress Note, Physician - Current Medication List Current Medications: Active Medications Azithromycin (Zithromax -) 250 mg PO DAILY [facility] Furosemide (Lasix Injection -) 40 mg IVPB DAILY [facility] Last Admin: 03/17/17 11:02 Dose: 40 mg Ceftriaxone Sodium 2 gm/ (Dextrose) 100 mls @ 200 mls/hr IVPB DAILY [facility] Magnesium Oxide (Mag-Ox -) 400 mg PO BID [facility] Last Admin: 03/17/17 21:35 Dose: 400 mg Nadolol (Corgard -) 40 mg PO DAILY [facility] Last Admin: 03/17/17 11:02 Dose: 40 mg Oxycodone HCl (Roxicodone -) 5 mg PO Q6H PRN PRN Reason: PAIN Last Admin: 03/18/17 01:48 Dose: 5 mg Spironolactone (Aldactone -) 50 mg PO DAILY [facility] Last Admin: 03/17/17 11:02 Dose: 50 mg Thiamine HCl (Vitamin B1 -) 100 mg PO DAILY [facility] Last Admin: 03/17/17 11:02 Dose: 100 mg - Objective Vital Signs: Vital Signs Temperature 99.1 F 03/18/17 05:14 Pulse Rate 73 03/18/17 05:14 Respiratory Rate 18 03/18/17 05:14 Blood Pressure 136/73 03/18/17 05:14 O2 Sat by Pulse Oximetry (%) 95 03/18/17 05:00 Labs: CBC, BMP 03/18/17 06:00 03/18/17 06:00 INR, PTT INR 2.29 (0.82-1.09) H 03/17/17 01:20 Assessment/Plan - Problems (1) Alcoholic cirrhosis Assessment/Plan: -chronic -GI consult noted--f/u [facility] -on liver transplant list -defer tap for ascitis Code(s): K70.30 - ALCOHOLIC CIRRHOSIS OF LIVER WITHOUT ASCITES Qualifiers: Ascites presence: with ascites Qualified Code(s): K70.31 - Alcoholic cirrhosis of liver with ascites (2) Anemia Assessment/Plan: -recieved 2 units PRBC -repeat labs Laboratory Tests 03/17/17 03/18/17 07:40 06:00 Hgb 8.6 L 10.4 L D -GI consult Code(s): D64.9 - ANEMIA, UNSPECIFIED Qualifiers: Anemia type: other cause Other causes of anemia: other cause, not classified Qualified Code(s): D64.89 - Other specified anemias (3) Leukocytosis Assessment/Plan: secondary to PNE ID consult IV abx Code(s): D72.829 - ELEVATED WHITE BLOOD CELL COUNT, UNSPECIFIED Qualifiers: Leukocytosis type: unspecified Qualified Code(s): D72.829 - Elevated white blood cell count, unspecified (4) Community acquired pneumonia Assessment/Plan: -IV abx Code(s): J18.9 - PNEUMONIA, UNSPECIFIED ORGANISM Assessment/Plan -s/p 2 units of PRBC -labs in AM -IV abx -GI,ID,Pulmonary and renal consult -elevate BLLE to decrease edema --increase lasix 60 bid
[2017-03-18 09:05] LABS: INR 2.16 (0.82-1.09); PROTHROMBIN TIME (PATIENT) 24.1 SEC (9.98-11.88)
[2017-03-18] MEDS ORDERED: FUROSEMIDE 40 MG/4 ML INJECTABLE VIAL IVPB SCH (10:00)
[2017-03-18] MEDS ORDERED: cefTRIAXone 2 GM/100 ML BAG (PRE-DOCKED) IVPB SCH (10:00)
--- NOTE | 2017-03-18 10:37 | CON.PULM ---
Consult Consult Specialty:: PULMONARY Referred by:: Dr. 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 Noted to have pulmonary infiltrates on CT A/P. He reports developing nasal congestion starting 2 weeks ago with cough productive of green sputum. No fevers, chills or sweats. Denies any shortness of breath or chest pain. Has been afebrile during this admission but with leukocytosis. Started on empiric antibiotics. - History Source History Provided By: Patient, Medical Record Limitations to Obtaining History: No Limitations - Past Medical History Cardio/Vascular: Yes: HTN Gastrointestinal: Yes: Ascites Hepatobiliary: Yes: Cirrhosis (Alcohol induced), Other (History of severe alcoholic hepatitis, hepatic encephalopathy) Dermatology: Yes: Cellulitis (of LE ) - Alcohol/Substance Use Hx Alcohol Use: Yes (In the past) History of Substance Use: reports: None - Smoking History Smoking history: Never smoked Have you smoked in the past 12 months: No - Social History Usual Living Arrangement: With Spouse Occupation: disabled History of Recent Travel: No Home Medications - Allergies Allergies/Adverse Reactions: Allergies Allergy/AdvReac Type Severity Reaction Status Date / Time No Known Allergies Allergy Verified 03/17/17 00:02 - Home Medications Home Medications: Ambulatory Orders Nadolol 40 mg PO DAILY 12/03/16 Pantoprazole Sodium [Protonix] 40 mg PO DAILY 12/03/16 Folic Acid 0.8 mg PO DAILY 12/21/16 Furosemide [Lasix] 80 mg PO BID 12/21/16 Hydroxyzine HCl [Atarax -] 25 mg PO QID PRN 12/21/16 Magnesium 500 mg PO DAILY 12/21/16 Oxycodone HCl 5 mg PO Q6H PRN 12/21/16 Thiamine HCl [Vitamin B1] 100 mg PO DAILY 12/21/16 Rifaximin [Xifaxan] 550 mg PO BID 03/17/17 Spironolactone 50 mg PO BID 03/17/17 Review of Systems - Review of Systems Constitutional: denies: Chills, Fever, Malaise Eyes: denies: Recent Change in Vision HENT: denies: Throat Pain Neck: denies: Stiffness, Tenderness Cardiovascular: reports: Edema. denies: Chest Pain, Palpitations, Shortness of Breath Respiratory: reports: Cough. denies: Hemoptysis, SOB, SOB on Exertion, Wheezing Gastrointestinal: denies: Abdominal Pain, Nausea, Vomiting Genitourinary: denies: Dysuria, Hematuria Neurological: denies: Dizziness, Headache Physical Exam Vital Sings: Vital Signs Temperature 99.1 F 03/18/17 05:14 Pulse Rate 73 03/18/17 05:14 Respiratory Rate 18 03/18/17 05:14 Blood Pressure 136/73 03/18/17 05:14 O2 Sat by Pulse Oximetry (%) 95 03/18/17 05:00 Constitutional: Yes: Calm Eyes: Yes: Conjunctiva Clear, EOM Intact HENT: Yes: Atraumatic, Normocephalic Neck: Yes: Supple, Trachea Midline Cardiovascular: Yes: Regular Rate and Rhythm Respiratory: Yes: Regular, Rales (scattered basilar) ...Clubbing: No Gastrointestinal: Yes: Normal Bowel Sounds, Soft, Distention. No: Tenderness Edema: Yes Neurological: Yes: Alert, Oriented Labs: CBC, BMP 03/18/17 06:00 03/18/17 06:00 Imaging - Results Chest X-ray: Report Reviewed, Image Reviewed (bilateral infiltrates, pulmonary vascular congestion) Problem List - Problems (1) Alcoholic cirrhosis Code(s): K70.30 - ALCOHOLIC CIRRHOSIS OF LIVER WITHOUT ASCITES Qualifiers: Ascites presence: with ascites Qualified Code(s): K70.31 - Alcoholic cirrhosis of liver with ascites (2) Anemia Code(s): D64.9 - ANEMIA, UNSPECIFIED Qualifiers: Anemia type: other cause Other causes of anemia: other cause, not classified Qualified Code(s): D64.89 - Other specified anemias (3) Community acquired pneumonia Code(s): J18.9 - PNEUMONIA, UNSPECIFIED ORGANISM (4) Thrombocytopenia Code(s): D69.6 - THROMBOCYTOPENIA, UNSPECIFIED (5) Coagulopathy Code(s): D68.9 - COAGULATION DEFECT, UNSPECIFIED (6) Acute kidney injury Code(s): N17.9 - ACUTE KIDNEY FAILURE, UNSPECIFIED Assessment/Plan r/o Pneumonia vs CHF Acute Kidney Injury Alcoholic Liver Cirrhosis Thrombocytopenia Coagulopathy - agree with empiric antibiotics given underlying medical conditions and leukocytosis - CXR today with improvement, may have element of CHF or third spacing - f/u cultures - monitor WBC, fever curve - monitor urine output, creatinine - DVT prophylaxis Thank you for this consult Bao Sun MD
[2017-03-18] MEDS ORDERED: DEXTROSE 5%-WATER 100 ML IVPB ONE (11:09)
[2017-03-18] MEDS ORDERED: PT OWN MED DRAWER 7, Y5N ONE (11:15)
[2017-03-18] MEDS: CEFTRIAXONE 2 GM in DEXTROSE 5%-WATER 100 ML IVPB SCH (11:35)
[2017-03-18] MEDS: MAGNESIUM OXIDE 400 MG TABLET (FP) PO SCH ×2 (11:37→22:07)
[2017-03-18] MEDS: AZITHROMYCIN 250 MG TABLET (FP) PO SCH (11:39)
[2017-03-18] MEDS: NADOLOL 40 MG TABLET (FP) PO SCH (11:44)
[2017-03-18] MEDS: THIAMINE HCL 100 MG TABLET (FP) PO SCH (11:49)
--- NOTE | 2017-03-18 11:52 | PN ---
Physical Exam: SUBJECTIVE: Patient seen and examined. He says nothing has changed since yesterday. There were no overnight events and no new complaints. OBJECTIVE: Vital Signs Period Temp Pulse Resp BP Sys/Palmer Pulse Ox Last 24 Hr 97 F-99.1 F 67-76 18-22 128-154/67-87 95-99 GENERAL: Awake, alert, and fully oriented, in no acute distress. HEAD: Normal with no signs of trauma. EYES: Pupils equal, round and reactive to light, extraocular movements intact, scleral icterus, conjunctiva clear. No lid lag. EARS, NOSE, THROAT: Ears normal, nares patent, oropharynx clear without exudates. Moist mucous membranes. NECK: Normal range of motion, supple without lymphadenopathy, JVD, or masses. LUNGS: Breath sounds equal, clear to auscultation bilaterally. No wheezes, and no crackles. No accessory muscle use. HEART: Regular rate and rhythm, normal S1 and S2 without murmur, rub or gallop. ABDOMEN: soft, obese, nontender, distended, hepatomegaly, ascities MUSCULOSKELETAL: Normal range of motion at all joints. No bony deformities or tenderness. No CVA tenderness. UPPER EXTREMITIES: 2+ pulses, warm, well-perfused. No cyanosis. No clubbing. Cap refill <2 seconds. No peripheral edema. LOWER EXTREMITIES: 2+ pulses, warm, well-perfused. No calf tenderness. 3+ LE edema PSYCHIATRIC: Cooperative. Good eye contact. Appropriate mood and affect. SKIN: Warm, dry, normal turgor, no rashes or lesions noted. Laboratory Results - last 24 hr 03/17/17 03/18/17 03/18/17 21:33 04:00 04:00 WBC RBC Hgb Hct MCV MCH MCHC RDW MPV Neutrophils % Lymphocytes % Monocytes % Eosinophils % Basophils % INR Sodium Potassium Chloride Carbon Dioxide Anion Gap BUN Creatinine Creat Clearance w eGFR POC Glucometer 161 Random Glucose Calcium Phosphorus Magnesium Total Bilirubin AST ALT Alkaline Phosphatase Total Protein Albumin U Random Total Protein Ur Random Sodium 23 Ur Random Urea Nitrogn 407 Urine Creatinine 03/18/17 03/18/17 03/18/17 04:00 04:00 06:00 WBC 15.2 H RBC 3.10 L Hgb 10.4 L D Hct 29.8 L D MCV 96.0 MCH 33.5 MCHC 34.9 RDW 20.0 H MPV 9.7 Neutrophils % 68.4 Lymphocytes % 15.8 Monocytes % 13.1 H Eosinophils % 2.2 Basophils % 0.5 INR Sodium Potassium Chloride Carbon Dioxide Anion Gap BUN Creatinine Creat Clearance w eGFR POC Glucometer Random Glucose Calcium Phosphorus Magnesium Total Bilirubin AST ALT Alkaline Phosphatase Total Protein Albumin U Random Total Protein 12 H Ur Random Sodium Ur Random Urea Nitrogn Urine Creatinine 38.1 03/18/17 03/18/17 03/18/17 06:00 06:00 06:23 WBC RBC Hgb Hct MCV MCH MCHC RDW MPV Neutrophils % Lymphocytes % Monocytes % Eosinophils % Basophils % INR 2.16 H Sodium 132 L Potassium 4.1 Chloride 92 L Carbon Dioxide 33 H Anion Gap 7 L BUN 29 H Creatinine 1.5 H Creat Clearance w eGFR 48.77 POC Glucometer 137 Random Glucose 119 H D Calcium 7.8 L Phosphorus 3.0 Magnesium 1.7 L Total Bilirubin 4.9 H D AST 60 H ALT 17 Alkaline Phosphatase 121 H Total Protein 8.4 H Albumin 2.0 L U Random Total Protein Ur Random Sodium Ur Random Urea Nitrogn Urine Creatinine Active Medications Generic Name Dose Route Start Last Admin Trade Name Freq PRN Reason Stop Dose Admin Azithromycin 250 mg 03/18/17 10:00 Zithromax - PO DAILY [facility] Furosemide 60 mg 03/18/17 10:00 Lasix Injection - IVPB BIDLASIX [facility]ANITA Ceftriaxone Sodium 2 gm/ 100 mls @ 200 mls/hr 03/18/17 10:00 Dextrose IVPB DAILY [facility] Magnesium Oxide 400 mg 03/17/17 22:00 03/17/17 21:35 Mag-Ox - PO 400 mg BID [facility]ANITA Administration Nadolol 40 mg 03/17/17 10:00 03/17/17 11:02 Corgard - PO 40 mg DAILY [facility] Administration Oxycodone HCl 5 mg 03/17/17 06:48 03/18/17 01:48 Roxicodone - PO 5 mg Q6H PRN Administration PAIN Spironolactone 50 mg 03/17/17 10:00 03/17/17 11:02 Aldactone - PO 50 mg DAILY [facility]ITA Administration Thiamine HCl 100 mg 03/17/17 10:00 03/17/17 11:02 Vitamin B1 - PO 100 mg DAILY [facility] Administration ASSESSMENT/PLAN: Patient is a 52 yo M with a history of alcohol induced liver cirrhosis, HTN, severe alcoholic hepatitis, was sent by Dr. Ashley because of abnormal labs and admitted for CAP and anemia. Dispo: We will continue to follow the patient. Thank you for this consultative opportunity. Problem List - Problems (1) Community acquired pneumonia Assessment/Plan: -Urine antigens pending -Continue IV abx: Rocephin 2grams and zithromax 250mg Code(s): J18.9 - PNEUMONIA, UNSPECIFIED ORGANISM (2) Alcoholic cirrhosis Assessment/Plan: -Chronic -GI consult noted -on liver transplant list Code(s): K70.30 - ALCOHOLIC CIRRHOSIS OF LIVER WITHOUT ASCITES Qualifiers: Ascites presence: with ascites Qualified Code(s): K70.31 - Alcoholic cirrhosis of liver with ascites Visit type - Emergency Visit Emergency Visit: Yes ED Registration Date: 03/17/17 Care time: The patient presented to the Emergency Department on the above date and was hospitalized for further evaluation of their emergent condition. - New Patient This patient is new to me today: No - Critical Care Critical Care patient: No
[2017-03-18] MEDS ORDERED: MAGNESIUM SULF 50% (8.12 MEQ/2 ML-1 GM VIAL) IVPB ONE ×2 (13:00→15:45)
[2017-03-18 13:12] VITALS: BMI 32.5
--- NOTE | 2017-03-18 13:12 | CON.NEP ---
Consult Consult Specialty:: Nephrology (Logan/Carlos) Referred by:: Dr. Ashley Reason for Consultation:: acute kidney injury - History of Present Illness Chief Complaint: abnormal labs History of Present Illness: This is a 52 year old gentleman with PMhx of Alcoholic Liver cirrhosis (on liver transplant list), Hx of Cellulitis who presented with low plt count as a outpatient and found to have BUN/Cr of 29/1.5 (baseline Cr is 0.9-1). Pt is on Lasix and aldactone at home for mangement of his ascities and LE edema. Denies any NSAID use or contrast exposure. Denies any urinary retention or flank pain. No fever, chills, N/V/D. - History Source History Provided By: Patient Limitations to Obtaining History: No Limitations - Past Medical History Cardio/Vascular: Yes: HTN Gastrointestinal: Yes: Ascites Hepatobiliary: Yes: Cirrhosis (Alcohol induced), Other (History of severe alcoholic hepatitis, hepatic encephalopathy) Dermatology: Yes: Cellulitis (of LE ) - Alcohol/Substance Use Hx Alcohol Use: Yes (In the past) History of Substance Use: reports: None - Smoking History Smoking history: Never smoked Have you smoked in the past 12 months: No - Social History Usual Living Arrangement: With Spouse Occupation: disabled History of Recent Travel: No Home Medications - Allergies Allergies/Adverse Reactions: Allergies Allergy/AdvReac Type Severity Reaction Status Date / Time No Known Allergies Allergy Verified 03/17/17 00:02 - Home Medications Home Medications: Ambulatory Orders Nadolol 40 mg PO DAILY 12/03/16 Pantoprazole Sodium [Protonix] 40 mg PO DAILY 12/03/16 Folic Acid 0.8 mg PO DAILY 12/21/16 Furosemide [Lasix] 80 mg PO BID 12/21/16 Hydroxyzine HCl [Atarax -] 25 mg PO QID PRN 12/21/16 Magnesium 500 mg PO DAILY 12/21/16 Oxycodone HCl 5 mg PO Q6H PRN 12/21/16 Thiamine HCl [Vitamin B1] 100 mg PO DAILY 12/21/16 Rifaximin [Xifaxan] 550 mg PO BID 03/17/17 Spironolactone 50 mg PO BID 03/17/17 Family Disease History - Family Disease History Family History: Unremarkable Review of Systems - Review of Systems Constitutional: reports: No Symptoms Eyes: reports: No Symptoms HENT: reports: No Symptoms Neck: reports: No Symptoms Cardiovascular: reports: No Symptoms Respiratory: reports: No Symptoms Gastrointestinal: reports: Bloating Genitourinary: reports: No Symptoms Musculoskeletal: reports: No Symptoms Integumentary: reports: No Symptoms Neurological: reports: No Symptoms Nephrology Consult - Height Height: 5 ft 6 in - Weight Weight: 201 lb 12.8 oz - BMI Body Mass Index (BMI): 32.5 - Lab Results CBC,BMP: CBC, BMP 03/18/17 06:00 03/18/17 06:00 Anion Gap: Anion Gap Anion Gap 7 (8-16) L 03/18/17 06:00 - Imaging Chest X-ray: Report Reviewed Cat Scan: Report Reviewed - Physical Examination Vital Signs: Vital Signs Temperature 99.1 F 03/18/17 05:14 Pulse Rate 73 03/18/17 05:14 Respiratory Rate 18 03/18/17 05:14 Blood Pressure 136/73 03/18/17 05:14 O2 Sat by Pulse Oximetry (%) 95 03/18/17 05:00 Constitutional: Yes: Well Nourished, No Distress HENT: Yes: Atraumatic Neck: Yes: Supple Cardiovascular: Yes: Regular Rate and Rhythm Respiratory: Yes: Regular, CTA Bilaterally Gastrointestinal: Yes: Normal Bowel Sounds, Soft, Ascites. No: Tenderness Renal/: No: Bladder Distention, CVA Tenderness - Left, CVA Tenderness - Right , Campbell Present Edema: Yes Edema: LLE: 2+, RLE: 2+ Neurological: Yes: Alert, Oriented. No: Asterixis Problem List - Problems (1) Acute kidney injury Code(s): N17.9 - ACUTE KIDNEY FAILURE, UNSPECIFIED (2) Alcoholic cirrhosis Code(s): K70.30 - ALCOHOLIC CIRRHOSIS OF LIVER WITHOUT ASCITES Qualifiers: Ascites presence: with ascites Qualified Code(s): K70.31 - Alcoholic cirrhosis of liver with ascites (3) Anemia Code(s): D64.9 - ANEMIA, UNSPECIFIED Qualifiers: Anemia type: other cause Other causes of anemia: other cause, not classified Qualified Code(s): D64.89 - Other specified anemias (4) Community acquired pneumonia Code(s): J18.9 - PNEUMONIA, UNSPECIFIED ORGANISM (5) Thrombocytopenia Code(s): D69.6 - THROMBOCYTOPENIA, UNSPECIFIED (6) Hyponatremia Code(s): E87.1 - HYPO-OSMOLALITY AND HYPONATREMIA (7) Hypomagnesemia Code(s): E83.42 - HYPOMAGNESEMIA Assessment/Plan 52 year old gentleman with PMhx of Alcoholic Liver cirrhosis (on liver transplant list), Hx of Cellulitis who presented with low plt count as a outpatient and found to have BUN/Cr of 29/1.5 (baseline Cr is 0.9-1). #Acute Kidney Injury Differential includes: Intravascular Volume depletion vs. ATN vs. Obstruction vs. hepato-renal syndrome Urine studies show FeNa of 0.68% indicative of pre-renal state Pt also with high BUN/Cr ration and elevated serum bicarb which are consistent with volume depletion Check Kidney and Bladder US will hold diuretics for 24 hours (discussed case with primary) and monitor Cr trend will need to be on maintenance diuretics but may be volume depleted at this time Trend BUN/Cr Dose all meds for Cr Cl less then 30 #PNA CT and CXR finding consistent with PNA + Leukocytosis continue abx as per primary #Cirrhosis holding diuretics for 24 hours given diminished renal function GI follow up supportive care #Thrombcytopenia Management as per primary Thank you Will follow Ronaldo Gonzalez DO
[2017-03-18 13:35] LABS: PLATELET COMMENT2 NO CLOTTING DETECTED; PLATELET COUNT 156 K/MM3 (134-434); PLATELET ESTIMATE ADEQUATE
--- NOTE | 2017-03-18 13:58 | PN ---
Teaching Attending Note Name of Resident: Brannon Lindo ATTENDING PHYSICIAN STATEMENT I saw and evaluated the patient. I reviewed the resident's note and discussed the case with the resident. I agree with the resident's findings and plan as documented. SUBJECTIVE: feels well, no sob OBJECTIVE: Vital Signs Period Temp Pulse Resp BP Sys/Palmer Pulse Ox Last 24 Hr 97 F-99.1 F 71-76 18-22 128-154/67-87 95-98 lungs clear cor-rrr CBC, BMP 03/18/17 06:00 03/18/17 06:00 Microbiology 03/18/17 04:00 Urine For Antigen Detection Legionella Antigen - Final 03/18/17 04:00 Urine For Antigen Detection Streptococcus pneumoniae Antigen (M - Final 03/17/17 04:00 Urine - Urine Clean Catch Urine Culture - Final 03/17/17 01:54 Blood - Peripheral Venous Blood Culture - Preliminary NO GROWTH OBTAINED AFTER 24 HOURS, INCUBATION TO CONTINUE FOR 4 DAYS. 03/17/17 01:54 Blood - Peripheral Venous Blood Culture - Preliminary NO GROWTH OBTAINED AFTER 24 HOURS, INCUBATION TO CONTINUE FOR 4 DAYS. ASSESSMENT AND PLAN: bilateral infiltrates/leukocytosis possible cap continue antiibotics rocephin/zith liver cirrhosis Problem List - Problems (1) Community acquired pneumonia Code(s): J18.9 - PNEUMONIA, UNSPECIFIED ORGANISM (2) Alcoholic cirrhosis Code(s): K70.30 - ALCOHOLIC CIRRHOSIS OF LIVER WITHOUT ASCITES Qualifiers: Ascites presence: with ascites Qualified Code(s): K70.31 - Alcoholic cirrhosis of liver with ascites
[2017-03-18] MEDS: SPIRONOLACTONE 25 MG TABLET (FP) PO SCH (14:31)
--- NOTE | 2017-03-18 14:51 | EKG ---
Test Reason : Blood Pressure : / mmHG Vent. Rate : 074 BPM Atrial Rate : 074 BPM P-R Int : 146 ms QRS Dur : 088 ms QT Int : 456 ms P-R-T Axes : 061 006 042 degrees QTc Int : 506 ms NORMAL SINUS RHYTHM CANNOT RULE OUT INFERIOR INFARCT , AGE UNDETERMINED PROLONGED QT ABNORMAL ECG WHEN COMPARED WITH ECG OF 17-MAR-2017 07:54, NO SIGNIFICANT CHANGE WAS FOUND Confirmed by SO WOODWARD, DAVID ([id number]) on 03/18/2017 2:50:54 PM Referred By: EDEN BALLARD Confirmed By:DAVID RIZZO MD
[2017-03-18] MEDS: hydrOXYzine HCL 25 MG TABLET (FP) PO PRN (22:31)
[2017-03-19] MEDS: hydrOXYzine HCL 25 MG TABLET (FP) PO PRN ×4 (04:03→22:11)
[2017-03-19] MEDS: oxyCODONE HCL 5 MG TABLET PO PRN ×4 (04:03→21:59)
[2017-03-19 09:18] LABS: ANION GAP 8 (8-16); CALCIUM 8.1 mg/dL (8.5-10.1); CO2 33 mmol/L (21-32); CREATININE 1.4 mg/dL (0.7-1.3); GLUCOSE,RANDOM 135 mg/dL (74-106)
[2017-03-19] MEDS ORDERED: DEXTROSE 5%-WATER 100 ML IVPB ONE (09:55)
[2017-03-19] MEDS ORDERED: PT OWN MED DRAWER 7, Y5N ONE ×4 (09:55→21:21)
[2017-03-19] MEDS: CEFTRIAXONE 2 GM in DEXTROSE 5%-WATER 100 ML IVPB SCH (10:24)
[2017-03-19] MEDS: THIAMINE HCL 100 MG TABLET (FP) PO SCH (10:25)
[2017-03-19] MEDS: MAGNESIUM OXIDE 400 MG TABLET (FP) PO SCH ×2 (10:25→21:22)
[2017-03-19] MEDS: AZITHROMYCIN 250 MG TABLET (FP) PO SCH (10:26)
[2017-03-19] MEDS: NADOLOL 40 MG TABLET (FP) PO SCH (10:28)
--- NOTE | 2017-03-19 11:27 | PN ---
Physical Exam: SUBJECTIVE: Patient seen and examined. Complains of an itchy rash scattered throughout after administration of antibiotics. He denies cough, fever, chills, night sweats, diarrhea, abdominal pain and urinary symptoms. OBJECTIVE: Vital Signs Period Temp Pulse Resp BP Sys/Palmer Pulse Ox Last 24 Hr 97.7 F-99.0 F 65-72 18-20 103-116/52-59 96 GENERAL: The patient is awake, alert, and fully oriented, in no acute distress. HEAD: Normal with no signs of trauma. EYES: PERRL, extraocular movements intact, sclera anicteric, conjunctiva clear. No ptosis. ENT: Ears normal, nares patent, oropharynx clear without exudates, moist mucous membranes. NECK: Trachea midline, full range of motion, supple. LUNGS: Breath sounds equal, clear to auscultation bilaterally, no wheezes, no crackles, no accessory muscle use. HEART: Regular rate and rhythm, S1, S2 without murmur, rub or gallop. ABDOMEN: Soft, nontender, nondistended, normoactive bowel sounds, no guarding, no rebound, no hepatosplenomegaly, no masses. EXTREMITIES: 2+ pulses, warm, well-perfused, no edema. PSYCH: Normal mood, normal affect. SKIN: Warm, dry, normal turgor, no rashes or lesions noted Laboratory Results - last 24 hr 03/18/17 03/19/17 03/19/17 06:00 06:41 08:30 WBC 15.2 H RBC 3.10 L Hgb 10.4 L D Hct 29.8 L D MCV 96.0 MCH 33.5 MCHC 34.9 RDW 20.0 H Plt Count 156 D MPV 9.7 Neutrophils % 68.4 Lymphocytes % 15.8 Monocytes % 13.1 H Eosinophils % 2.2 Basophils % 0.5 Platelet Estimate Adequate Platelet Comment No clotting detected Sodium 133 L Potassium 4.3 Chloride 92 L Carbon Dioxide 33 H Anion Gap 8 BUN 32 H Creatinine 1.4 H POC Glucometer 153 Random Glucose 135 H Calcium 8.1 L Active Medications Generic Name Dose Route Start Last Admin Trade Name Freq PRN Reason Stop Dose Admin Azithromycin 250 mg 03/18/17 10:00 03/19/17 10:26 Zithromax - PO 250 mg DAILY VANITA Administration Hydroxyzine HCl 25 mg 03/18/17 22:02 03/19/17 10:25 Atarax - PO 25 mg Q6H PRN Administration Ceftriaxone Sodium 2 gm/ 100 mls @ 200 mls/hr 03/18/17 10:00 03/19/17 10:24 Dextrose IVPB 200 mls/hr DAILY VANITA Administration Magnesium Oxide 400 mg 03/17/17 22:00 03/19/17 10:25 Mag-Ox - PO 400 mg BID VANITA Administration Nadolol 40 mg 03/17/17 10:00 03/19/17 10:28 Corgard - PO 40 mg DAILY VANITA Administration Oxycodone HCl 5 mg 03/17/17 06:48 03/19/17 10:26 Roxicodone - PO 5 mg Q6H PRN Administration PAIN Thiamine HCl 100 mg 03/17/17 10:00 03/19/17 10:25 Vitamin B1 - PO 100 mg DAILY VANITA Administration ASSESSMENT/PLAN: Patient is a 52 yo M with a history of alcohol induced liver cirrhosis, HTN, severe alcoholic hepatitis, was sent by Dr. Ashley because of abnormal labs and admitted for CAP and anemia. Problem List - Problems (1) Community acquired pneumonia Assessment/Plan: -Continue IV abx (Day 3): Rocephin 2grams and zithromax 250mg Code(s): J18.9 - PNEUMONIA, UNSPECIFIED ORGANISM (2) Alcoholic cirrhosis Assessment/Plan: -Chronic -GI consult noted -on liver transplant list Code(s): K70.30 - ALCOHOLIC CIRRHOSIS OF LIVER WITHOUT ASCITES Qualifiers: Ascites presence: with ascites Qualified Code(s): K70.31 - Alcoholic cirrhosis of liver with ascites Visit type - Emergency Visit Emergency Visit: Yes ED Registration Date: 03/17/17 Care time: The patient presented to the Emergency Department on the above date and was hospitalized for further evaluation of their emergent condition. - New Patient This patient is new to me today: No - Critical Care Critical Care patient: No
--- NOTE | 2017-03-19 11:35 | PN ---
Progress Note (short form) - Note Progress Note: PULMONARY FEELS WELL VSS/AFEBRILE ICTERIC CRACKLES RIGHT BASE S1S2 ASCITES 3-4+ EDEMA LOWER EXT LABS/MEDS/NOTES/IMAGING/MICRO REVIEWED Pneumonia ? Component of ETOH induced cardiomyopathy Acute Kidney Injury Alcoholic Liver Cirrhosis Thrombocytopenia Coagulopathy - empiric antibiotics given underlying medical conditions and leukocytosis - Had exhaustive workup recently in consideration of transplant at [facility] - f/u cultures - monitor WBC, fever curve - monitor urine output, creatinine - DVT prophylaxis Bruna MORRIS MD
--- NOTE | 2017-03-19 13:20 | PN ---
Progress Note (short form) - Note Progress Note: Renal Follow up for PATRICIA Pt seen and examined at the bedside no acute complaints no sob, chest pain, abd pain slept well, no orthopnea legs feel heavier gained 3lbs Vital Signs Temperature 98.1 F 03/19/17 08:00 Pulse Rate 66 03/19/17 06:00 Respiratory Rate 18 03/19/17 08:00 Blood Pressure 119/66 03/19/17 08:00 O2 Sat by Pulse Oximetry (%) 96 03/19/17 09:00 Intake & Output 03/16/17 03/17/17 03/18/17 03/19/17 23:59 23:59 23:59 23:59 Intake Total 430 440 590 Output Total 300 Balance 430 140 590 Weight 200 lb 201 lb 12.8 oz 204 lb 1 oz Gen: NAD, awake and alert CVS:RRR Lungs: CTA Abd: distended, + ascities Ext: 2+ edema CBC, BMP 03/18/17 06:00 03/19/17 08:30 Current Medications Azithromycin (Zithromax -) 250 mg PO DAILY [facility] Last Admin: 03/19/17 10:26 Dose: 250 mg Furosemide (Lasix -) 80 mg PO BID@0600,1400 [facility] Hydroxyzine HCl (Atarax -) 25 mg PO Q6H PRN Last Admin: 03/19/17 10:25 Dose: 25 mg Ceftriaxone Sodium 2 gm/ (Dextrose) 100 mls @ 200 mls/hr IVPB DAILY [facility] Last Admin: 03/19/17 10:24 Dose: 200 mls/hr Magnesium Oxide (Mag-Ox -) 400 mg PO BID [facility] Last Admin: 03/19/17 10:25 Dose: 400 mg Nadolol (Corgard -) 40 mg PO DAILY [facility] Last Admin: 03/19/17 10:28 Dose: 40 mg Oxycodone HCl (Roxicodone -) 5 mg PO Q6H PRN PRN Reason: PAIN Last Admin: 03/19/17 10:26 Dose: 5 mg Spironolactone (Aldactone -) 50 mg PO BID [facility] Thiamine HCl (Vitamin B1 -) 100 mg PO DAILY [facility] Last Admin: 03/19/17 10:25 Dose: 100 mg A/P 52 year old gentleman with PMhx of Alcoholic Liver cirrhosis (on liver transplant list), Hx of Cellulitis who presented with low plt count as a outpatient and found to have BUN/Cr of 29/1.5 (baseline Cr is 0.9-1). #Acute Kidney Injury Differential includes: Intravascular Volume depletion vs. ATN vs. Obstruction vs. hepato-renal syndrome Urine studies show FeNa of 0.68% indicative of pre-renal state BUN/Cr stable/mild improvement off diuretics will restart oral diuretics to maintain volume status as pt gained 3lbs in 24 hours off diuretics would not suggest IV diuretics as pt with clear lungs, no abd discomfort as it will likely potentiate intravascular volume depletion and cause further kidney injury If BP remains low may benefit from Midodrine Ronaldo Gonzalez DO Problem List - Problems (1) Acute kidney injury Code(s): N17.9 - ACUTE KIDNEY FAILURE, UNSPECIFIED (2) Alcoholic cirrhosis Code(s): K70.30 - ALCOHOLIC CIRRHOSIS OF LIVER WITHOUT ASCITES Qualifiers: Ascites presence: with ascites Qualified Code(s): K70.31 - Alcoholic cirrhosis of liver with ascites (3) Anemia Code(s): D64.9 - ANEMIA, UNSPECIFIED Qualifiers: Anemia type: other cause Other causes of anemia: other cause, not classified Qualified Code(s): D64.89 - Other specified anemias (4) Community acquired pneumonia Code(s): J18.9 - PNEUMONIA, UNSPECIFIED ORGANISM (5) Thrombocytopenia Code(s): D69.6 - THROMBOCYTOPENIA, UNSPECIFIED (6) Hyponatremia Code(s): E87.1 - HYPO-OSMOLALITY AND HYPONATREMIA (7) Hypomagnesemia Code(s): E83.42 - HYPOMAGNESEMIA
[2017-03-19] MEDS: FUROSEMIDE 40 MG TABLET (FP) PO SCH (14:28)
--- NOTE | 2017-03-19 15:59 | PN ---
Teaching Attending Note Name of Resident: Brannon Lindo ATTENDING PHYSICIAN STATEMENT I saw and evaluated the patient. I reviewed the resident's note and discussed the case with the resident. I agree with the resident's findings and plan as documented. SUBJECTIVE: no complaints intermittent itching no rash OBJECTIVE: Vital Signs Period Temp Pulse Resp BP Sys/Palmer Pulse Ox Last 24 Hr 97.7 F-98.9 F 66-72 18-20 103-119/52-67 96-96 cor rrr lungs clear abd soft,nt ext no edema no cbc today Microbiology 03/17/17 01:54 Blood - Peripheral Venous Blood Culture - Preliminary NO GROWTH OBTAINED AFTER 48 HOURS, INCUBATION TO CONTINUE FOR 3 DAYS. 03/17/17 01:54 Blood - Peripheral Venous Blood Culture - Preliminary NO GROWTH OBTAINED AFTER 48 HOURS, INCUBATION TO CONTINUE FOR 3 DAYS. 03/18/17 04:00 Urine For Antigen Detection Legionella Antigen - Final negative 03/18/17 04:00 Urine For Antigen Detection Streptococcus pneumoniae Antigen (M - Final negative 03/17/17 04:00 Urine - Urine Clean Catch Urine Culture - Final ASSESSMENT AND PLAN: leukocytosis/infiltrates/chf on ceftriaxone/zithromax d/c zithromax f/u cbc in am hopefully home on ceftin in am if leukocytosis is improved will need close outpt f/u and repeat cxray as outpt Problem List - Problems (1) Community acquired pneumonia Code(s): J18.9 - PNEUMONIA, UNSPECIFIED ORGANISM (2) Alcoholic cirrhosis Code(s): K70.30 - ALCOHOLIC CIRRHOSIS OF LIVER WITHOUT ASCITES Qualifiers: Ascites presence: with ascites Qualified Code(s): K70.31 - Alcoholic cirrhosis of liver with ascites
--- NOTE | 2017-03-19 16:39 | PN ---
Progress Note, Physician Chief Complaint: PNE,Liver cirrhosis, Anemia History of Present Illness: NAD, sitting at the edge of the bed seen by ID, pulmonary and renal. - Current Medication List Current Medications: Active Medications Furosemide (Lasix -) 80 mg PO BID@0600,1400 [facility] Last Admin: 03/19/17 14:28 Dose: 80 mg Hydroxyzine HCl (Atarax -) 25 mg PO Q6H PRN Last Admin: 03/19/17 16:07 Dose: 25 mg Ceftriaxone Sodium 2 gm/ (Dextrose) 100 mls @ 200 mls/hr IVPB DAILY [facility] Last Admin: 03/19/17 10:24 Dose: 200 mls/hr Magnesium Oxide (Mag-Ox -) 400 mg PO BID [facility] Last Admin: 03/19/17 10:25 Dose: 400 mg Nadolol (Corgard -) 40 mg PO DAILY [facility] Last Admin: 03/19/17 10:28 Dose: 40 mg Oxycodone HCl (Roxicodone -) 5 mg PO Q6H PRN PRN Reason: PAIN Last Admin: 03/19/17 16:11 Dose: 5 mg Rifaximin (Xifaxan -) 550 mg PO BID [facility] Spironolactone (Aldactone -) 50 mg PO BID [facility] Thiamine HCl (Vitamin B1 -) 100 mg PO DAILY [facility] Last Admin: 03/19/17 10:25 Dose: 100 mg - Objective Vital Signs: Vital Signs Temperature 97.7 F 03/19/17 14:17 Pulse Rate 70 03/19/17 14:17 Respiratory Rate 20 03/19/17 14:17 Blood Pressure 108/67 03/19/17 14:17 O2 Sat by Pulse Oximetry (%) 96 03/19/17 09:00 Constitutional: Yes: Well Nourished, No Distress, Calm Eyes: Yes: Sclera Icterus Cardiovascular: Yes: Regular Rate and Rhythm Respiratory: Yes: Regular Gastrointestinal: Yes: Normal Bowel Sounds, Soft, Ascites Musculoskeletal: Yes: WNL Extremities: Yes: WNL Edema: Yes Edema: LLE: 3+, RLE: 3+ Peripheral Pulses WNL: Yes Integumentary: Yes: Jaundice Neurological: Yes: Alert, Oriented ...Motor Strength: WNL Psychiatric: Yes: Alert, Oriented Labs: CBC, BMP 03/18/17 06:00 03/19/17 08:30 INR, PTT INR 2.16 (0.82-1.09) H 03/18/17 06:00 Problem List - Problems (1) Alcoholic cirrhosis Assessment/Plan: -chronic -GI consult -on liver transplant list -defer tap for ascitis Code(s): K70.30 - ALCOHOLIC CIRRHOSIS OF LIVER WITHOUT ASCITES Qualifiers: Ascites presence: with ascites Qualified Code(s): K70.31 - Alcoholic cirrhosis of liver with ascites (2) Anemia Assessment/Plan: -recieved 2 units PRBC -H/H improved -GI consult Code(s): D64.9 - ANEMIA, UNSPECIFIED Qualifiers: Anemia type: other cause Other causes of anemia: other cause, not classified Qualified Code(s): D64.89 - Other specified anemias (3) Leukocytosis Assessment/Plan: secondary to PNE ID consult IV abx Code(s): D72.829 - ELEVATED WHITE BLOOD CELL COUNT, UNSPECIFIED Qualifiers: Leukocytosis type: unspecified Qualified Code(s): D72.829 - Elevated white blood cell count, unspecified (4) Community acquired pneumonia Assessment/Plan: -IV abx Code(s): J18.9 - PNEUMONIA, UNSPECIFIED ORGANISM Assessment/Plan -labs in AM -IV abx, may change to PO ceftin once cleared by ID, may go home thereafter -GI,ID,Pulmonary and renal consult -elevate BLLE to decrease edema -Xifaxan restarted
[2017-03-19] MEDS: SPIRONOLACTONE 25 MG TABLET (FP) PO SCH (21:22)
[2017-03-19] MEDS: RIFAXIMIN 550 MG TABLET (UD) PO SCH (21:59)
[2017-03-20] MEDS ORDERED: PT OWN MED DRAWER 7, Y5N ONE ×3 (04:28→10:41)
[2017-03-20] MEDS: oxyCODONE HCL 5 MG TABLET PO PRN ×2 (04:29→10:46)
[2017-03-20] MEDS: hydrOXYzine HCL 25 MG TABLET (FP) PO PRN ×2 (04:29→10:46)
[2017-03-20] MEDS: FUROSEMIDE 40 MG TABLET (FP) PO SCH (06:01)
[2017-03-20 07:15] LABS: BASOPHIL 0.8 % (0-2.0); EOSINOPHIL 2.1 % (0-4.5); MCH 33.7 pg (25.7-33.7); MCHC 34.6 g/dl (32.0-35.9); MEAN CELL VOLUME 97.3 fl (80-96); MEAN PLT VOLUME 9.3 fl (7.5-11.1); NEUTROPHILS 66.6 % (42.8-82.8); PLATELET COUNT 149 K/MM3 (134-434); RDW 19.5 % (11.9-15.9); WHITE BLOOD COUNT 12.1 K/mm3 (4.0-10.0)
[2017-03-20 07:33] LABS: ANION GAP 7 (8-16); CALCIUM 8.2 mg/dL (8.5-10.1); CO2 33 mmol/L (21-32); CREATININE 1.4 mg/dL (0.7-1.3); GLUCOSE,RANDOM 144 mg/dL (74-106); MAGNESIUM 2.1 mg/dL (1.8-2.4); PHOSPHOROUS 3.6 mg/dL (2.5-4.9)
[2017-03-20] MEDS ORDERED: DEXTROSE 5%-WATER 100 ML IVPB ONE (10:21)
[2017-03-20] MEDS: CEFTRIAXONE 2 GM in DEXTROSE 5%-WATER 100 ML IVPB SCH (10:35)
[2017-03-20] MEDS: MAGNESIUM OXIDE 400 MG TABLET (FP) PO SCH (10:36)
[2017-03-20] MEDS: RIFAXIMIN 550 MG TABLET (UD) PO SCH (10:36)
[2017-03-20] MEDS: SPIRONOLACTONE 25 MG TABLET (FP) PO SCH (10:36)
[2017-03-20] MEDS: NADOLOL 40 MG TABLET (FP) PO SCH (10:37)
[2017-03-20] MEDS: THIAMINE HCL 100 MG TABLET (FP) PO SCH (10:37)
--- NOTE | 2017-03-20 11:27 | PN ---
Progress Note (short form) - Note Progress Note: Renal Follow up for PATRICIA Pt seen and examined at the bedside no acute complaints no sob, chest pain, abd pain, N/V/D Vital Signs Temperature 99 F 03/20/17 06:02 Pulse Rate 79 03/20/17 06:02 Respiratory Rate 20 03/20/17 06:02 Blood Pressure 150/60 03/20/17 06:02 O2 Sat by Pulse Oximetry (%) 96 03/20/17 05:00 Intake & Output 03/17/17 03/18/17 03/19/17 03/20/17 23:59 23:59 23:59 23:59 Intake Total 624 842 7313 250 Output Total 300 Balance 997 532 9618 250 Weight 200 lb 201 lb 12.8 oz 204 lb 1 oz 207 lb 14.4 oz Gen: NAD, awake and alert CVS:RRR Lungs: CTA Abd: distended, + ascities Ext: 2+ edema CBC, BMP 03/20/17 06:00 03/20/17 06:00 Laboratory Tests 03/19/17 03/20/17 08:30 06:00 Calcium 8.1 L 8.2 L Phosphorus 3.6 Magnesium 2.1 D Current Medications Furosemide (Lasix -) 80 mg PO BID@0600,1400 [facility] Last Admin: 03/20/17 06:01 Dose: 80 mg Hydroxyzine HCl (Atarax -) 25 mg PO Q6H PRN Last Admin: 03/20/17 10:46 Dose: 25 mg Ceftriaxone Sodium 2 gm/ (Dextrose) 100 mls @ 200 mls/hr IVPB DAILY [facility] Last Admin: 03/20/17 10:35 Dose: 200 mls/hr Magnesium Oxide (Mag-Ox -) 400 mg PO BID [facility] Last Admin: 03/20/17 10:36 Dose: 400 mg Nadolol (Corgard -) 40 mg PO DAILY [facility] Last Admin: 03/20/17 10:37 Dose: 40 mg Oxycodone HCl (Roxicodone -) 5 mg PO Q6H PRN PRN Reason: PAIN Last Admin: 03/20/17 10:46 Dose: 5 mg Rifaximin (Xifaxan -) 550 mg PO BID [facility] Last Admin: 03/20/17 10:36 Dose: 550 mg Spironolactone (Aldactone -) 50 mg PO BID [facility] Last Admin: 03/20/17 10:36 Dose: 50 mg Thiamine HCl (Vitamin B1 -) 100 mg PO DAILY [facility] Last Admin: 03/20/17 10:37 Dose: 100 mg A/P 52 year old gentleman with PMhx of Alcoholic Liver cirrhosis (on liver transplant list), Hx of Cellulitis who presented with low plt count as a outpatient and found to have BUN/Cr of 29/1.5 (baseline Cr is 0.9-1). #Acute Kidney Injury in setting of chronic liver disease and acute PNA Renal function stable, urine studies consistent with pre-renal injury given cirrhosis and LE edema, continue diuretics are warranted continue Lasix 80mg BID, Aldactone 50mg BID repeat labs in 1 week low salt deit, but advised to maintain good water intake leg elevation avoidance of NSAIDs to follow up in the office in 1-2 weeks Thank you Ronaldo Gonzalez DO Problem List - Problems (1) Acute kidney injury Code(s): N17.9 - ACUTE KIDNEY FAILURE, UNSPECIFIED (2) Alcoholic cirrhosis Code(s): K70.30 - ALCOHOLIC CIRRHOSIS OF LIVER WITHOUT ASCITES Qualifiers: Ascites presence: with ascites Qualified Code(s): K70.31 - Alcoholic cirrhosis of liver with ascites (3) Anemia Code(s): D64.9 - ANEMIA, UNSPECIFIED Qualifiers: Anemia type: other cause Other causes of anemia: other cause, not classified Qualified Code(s): D64.89 - Other specified anemias (4) Community acquired pneumonia Code(s): J18.9 - PNEUMONIA, UNSPECIFIED ORGANISM (5) Thrombocytopenia Code(s): D69.6 - THROMBOCYTOPENIA, UNSPECIFIED (6) Hyponatremia Code(s): E87.1 - HYPO-OSMOLALITY AND HYPONATREMIA (7) Hypomagnesemia Code(s): E83.42 - HYPOMAGNESEMIA
--- NOTE | 2017-03-20 12:50 | PN ---
Progress Note (short form) - Note Progress Note: PULMONARY Denies shortness of breath, cough or fevers. Last Vital Signs Temp Pulse Resp BP Pulse Ox 99 F 79 20 150/60 96 03/20/17 06:02 03/20/17 06:02 03/20/17 09:00 03/20/17 06:02 03/20/17 09:00 Gen: NAD at rest Heart: RRR Lung: decreased breath sounds at the bases Abd: soft, distended Ext: + edema CBC, BMP 03/20/17 06:00 03/20/17 06:00 Active Medications Furosemide (Lasix -) 80 mg PO BID@0600,1400 [facility] Last Admin: 03/20/17 06:01 Dose: 80 mg Hydroxyzine HCl (Atarax -) 25 mg PO Q6H PRN Last Admin: 03/20/17 10:46 Dose: 25 mg Ceftriaxone Sodium 2 gm/ (Dextrose) 100 mls @ 200 mls/hr IVPB DAILY [facility] Last Admin: 03/20/17 10:35 Dose: 200 mls/hr Magnesium Oxide (Mag-Ox -) 400 mg PO BID [facility] Last Admin: 03/20/17 10:36 Dose: 400 mg Nadolol (Corgard -) 40 mg PO DAILY [facility] Last Admin: 03/20/17 10:37 Dose: 40 mg Oxycodone HCl (Roxicodone -) 5 mg PO Q6H PRN PRN Reason: PAIN Last Admin: 03/20/17 10:46 Dose: 5 mg Rifaximin (Xifaxan -) 550 mg PO BID [facility] Last Admin: 03/20/17 10:36 Dose: 550 mg Spironolactone (Aldactone -) 50 mg PO BID [facility] Last Admin: 03/20/17 10:36 Dose: 50 mg Thiamine HCl (Vitamin B1 -) 100 mg PO DAILY [facility] Last Admin: 03/20/17 10:37 Dose: 100 mg A/P r/o Pneumonia vs CHF Acute Kidney Injury Alcoholic Liver Cirrhosis Thrombocytopenia Coagulopathy - complete empiric antibiotics - can discharge home from pulmonary standpoint Problem List - Problems (1) Alcoholic cirrhosis Code(s): K70.30 - ALCOHOLIC CIRRHOSIS OF LIVER WITHOUT ASCITES Qualifiers: Ascites presence: with ascites Qualified Code(s): K70.31 - Alcoholic cirrhosis of liver with ascites (2) Anemia Code(s): D64.9 - ANEMIA, UNSPECIFIED Qualifiers: Anemia type: other cause Other causes of anemia: other cause, not classified Qualified Code(s): D64.89 - Other specified anemias (3) Community acquired pneumonia Code(s): J18.9 - PNEUMONIA, UNSPECIFIED ORGANISM (4) Thrombocytopenia Code(s): D69.6 - THROMBOCYTOPENIA, UNSPECIFIED (5) Coagulopathy Code(s): D68.9 - COAGULATION DEFECT, UNSPECIFIED (6) Acute kidney injury Code(s): N17.9 - ACUTE KIDNEY FAILURE, UNSPECIFIED
--- NOTE | 2017-03-20 13:20 | DS ---
Physical Examination Vital Signs: Vital Signs Temperature 99 F 03/20/17 06:02 Pulse Rate 79 03/20/17 06:02 Respiratory Rate 20 03/20/17 09:00 Blood Pressure 150/60 03/20/17 06:02 O2 Sat by Pulse Oximetry (%) 96 03/20/17 09:00 Constitutional: Yes: No Distress, Calm Eyes: Yes: Conjunctiva Clear, EOM Intact HENT: Yes: Atraumatic, Normocephalic Neck: Yes: Supple, Trachea Midline Cardiovascular: Yes: Regular Rate and Rhythm Respiratory: Yes: Diminished (breath sounds on B/L lung bases) Gastrointestinal: Yes: Normal Bowel Sounds, Soft, Distention Edema: Yes Edema: LLE: 2+, RLE: 2+ Peripheral Pulses WNL: Yes Neurological: Yes: Alert, Oriented ...Motor Strength: WNL Psychiatric: Yes: Alert, Oriented Labs: CBC, BMP 03/20/17 06:00 03/20/17 06:00 Discharge Summary Reason For Visit: FATIGUE,ANEMIA,ALCOHOLIC CIRRHOLIC Current Active Problems Acute kidney injury (Acute) Alcoholic cirrhosis (Acute) Anemia (Acute) Coagulopathy (Acute) Community acquired pneumonia (Acute) Fatigue (Acute) Hypomagnesemia (Acute) Hyponatremia (Acute) Thrombocytopenia (Acute) Condition: Good - Instructions Referrals: Prakash Ashley MD [Primary Care Provider] - 1 Week Ronaldo Gonzalez MD [Staff Physician] - 1 Week Disposition: HOME - Home Medications Comprehensive Discharge Medication List: Ambulatory Orders Nadolol 40 mg PO DAILY 12/03/16 Pantoprazole Sodium [Protonix] 40 mg PO DAILY 12/03/16 Folic Acid 0.8 mg PO DAILY 12/21/16 Furosemide [Lasix] 80 mg PO BID 12/21/16 Hydroxyzine HCl [Atarax -] 25 mg PO QID PRN 12/21/16 Magnesium 500 mg PO DAILY 12/21/16 Oxycodone HCl 5 mg PO Q6H PRN 12/21/16 Thiamine HCl [Vitamin B1] 100 mg PO DAILY 12/21/16 Rifaximin [Xifaxan -] 550 mg PO BID 03/17/17 Spironolactone 50 mg PO BID 03/17/17 Cefuroxime Axetil [Ceftin -] 500 mg PO Q12H #14 tablet 03/20/17 Furosemide [Lasix -] 80 mg PO BID@0600,1400 tablet 03/20/17 Hydroxyzine HCl [Atarax -] 25 mg PO Q6H PRN #0 tablet 03/20/17 Magnesium Oxide [Mag-Ox -] 400 mg PO BID tablet 03/20/17 Rifaximin [Xifaxan -] 550 mg PO BID tablet 03/20/17
[2017-03-20 13:49] VITALS: BP 119/63; PULSE 70; TEMP 99.3
== END 2017-03-20 14:40 | disposition home or self-care (01) | DRG 811 ==
LOC: JER 23:50 → JERBED 03-17 06:06 → J7W 03-17 15:35
PROVIDERS: ADMIT Family Medicine; ATTEND Family Medicine
PROC: 30233N1 Transfusion of Nonautologous Red Blood Cells into Peripheral Vein, Percutaneous Approach (ICD-10-PCS; principal; 2017-03-17)
DX: D64.89 Other specified anemias (principal); K76.7 Hepatorenal syndrome; J18.9 Pneumonia, unspecified organism; L03.116 Cellulitis of left lower limb; D68.9 Coagulation defect, unspecified; N17.9 Acute kidney failure, unspecified; E87.1 Hypo-osmolality and hyponatremia; K70.31 Alcoholic cirrhosis of liver with ascites; I10 Essential (primary) hypertension; K70.11 Alcoholic hepatitis with ascites; K72.90 Hepatic failure, unspecified without coma; D72.829 Elevated white blood cell count, unspecified; D69.6 Thrombocytopenia, unspecified; E83.42 Hypomagnesemia
CPT/HCPCS: 36415; 36430; 71020-TC; 74176-TC; 76775-TC; 76856-TC; 80048; 80053; 81003; 81015; 82570; 83605; 83735; 83880; 84100; 84156; 84300; 84540; 85025; 85027; 85610; 86850; 86900; 86901; 86922; 87040; 87086; 87899; 93005; 93010; 94010; 99285-25; P9038; P9058

== ENCOUNTER 2017-05-25 22:29 | Inpatient (IN) | payer BC ==
--- NOTE | 2017-05-25 23:11 | PDOC ---
History of Present Illness - History of Present Illness Initial Comments: 05/25/17 23:45 The patient is a 52 year old male, with a significant past medical history of alcoholism, liver cirrhosis, ascites, psoriasis, and chronic anemia,who presents to the emergency department with generalized weakness, depression, and decreased appetite. Patient is a recovering alcoholic who recently relapsed after his father in January. His last drink of vodka was today His states that he is not eating, hes dehydrated, and doesnt want to get out of bed. She also notes that he appears jaundiced. She states he also suffers from anxiety. Patient is currently on liver transplant list. He denies any recent fevers, chills, headache or dizziness. He denies any recent nausea, vomit, diarrhea or constipation. He denies any recent chest pain or shortness of breath. He denies any recent dysuria, frequency, urgency or hematuria. Allergies: NKA Past surgical history: None reported. Social History: Nonsmoker. Chronic alcohol use. Primary Care Physician:Prakash Ashley <Lucita Sánchez - Last Filed: 05/25/17 23:45> <Janna Christine - Last Filed: 05/26/17 02:09> - General Chief Complaint: Weakness Stated Complaint: WEAKNESS Past History <Lucita Sánchez - Last Filed: 05/25/17 23:45> - Past Medical History HTN: Yes Liver Disease: Yes (cirrhosis) - Suicide/Smoking/Psychosocial Hx Smoking History: Unknown if ever smoked Have you smoked in the past 12 months: No Information on smoking cessation initiated: No Hx Alcohol Use: No Drug/Substance Use Hx: No Substance Use Type: None Hx Substance Use Treatment: No <Janna Christine - Last Filed: 05/26/17 02:09> - Past Medical History Allergies/Adverse Reactions: Allergies Allergy/AdvReac Type Severity Reaction Status Date / Time No Known Allergies Allergy Verified 05/25/17 22:31 Home Medications: Ambulatory Orders Nadolol 40 mg PO DAILY 12/03/16 Pantoprazole Sodium [Protonix] 40 mg PO DAILY 12/03/16 Folic Acid 0.8 mg PO DAILY 12/21/16 Furosemide [Lasix] 80 mg PO BID 12/21/16 Magnesium 500 mg PO DAILY 12/21/16 Oxycodone HCl 5 mg PO Q6H PRN 12/21/16 Thiamine HCl [Vitamin B1] 100 mg PO DAILY 12/21/16 Rifaximin [Xifaxan -] 550 mg PO BID 03/17/17 Spironolactone 50 mg PO BID 03/17/17 Cefuroxime Axetil [Ceftin -] 500 mg PO Q12H #14 tablet 03/20/17 Furosemide [Lasix -] 80 mg PO BID@0600,1400 tablet 03/20/17 Hydroxyzine HCl [Atarax -] 25 mg PO Q6H PRN #0 tablet 03/20/17 Hydroxyzine HCl [Atarax -] 25 mg PO QID PRN #30 tab 03/20/17 Magnesium Oxide [Mag-Ox -] 400 mg PO BID tablet 03/20/17 Oxycodone HCl [Roxicodone -] 5 mg PO Q6H PRN #20 tablet MDD 4 03/20/17 Rifaximin [Xifaxan -] 550 mg PO BID tablet 03/20/17 Review of Systems - Review of Systems Comments:: 05/25/17 23:45 CONSTITUTIONAL: Present: weakness, decreased appetite Absent: fever, no chills, no fatigue EYES: Absent: visual changes ENT: Absent: ear pain, no sore throat CARDIOVASCULAR: Absent: chest pain, no palpitations RESPIRATORY: Absent: cough, no SOB GI: Absent: abdominal pain, no nausea, no vomiting, no constipation, no diarrhea GENITOURINARY: Absent: dysuria, no frequency, no hematuria MUSCULOSKELETAL: Absent: back pain, no arthralgia, no myalgia SKIN: Present: psoriasis NEURO: Present: Increased state of depression Absent: headache <Lucita Sánchez - Last Filed: 05/25/17 23:45> *Physical Exam - Vital Signs Last Vital Signs Temp Pulse Resp BP Pulse Ox 90 14 154/79 100 05/25/17 22:32 05/25/17 22:32 05/25/17 22:32 05/25/17 22:32 - Physical Exam Comments: 05/25/17 23:45 GENERAL: Well-appearing, well-nourished. No apparent distress. HEENT: Icteric sclera. Normocephalic, atraumatic. PERRL, EOM intact. CARDIOVASCULAR: Normal S1, S2. Regular rate and rhythm. PULMONARY: Clear to auscultation bilaterally. ABDOMEN: Soft, protuberant belly, enlarged liver. Ascites.Non-tender. EXTREMITIES: Chronic venous stasis on lower extremities. Pedal edema. Normal ROM in all four extremities. No gross deformities. SKIN: Extensive psoriasis on extremities and torso. Skin Jaundiced. NEUROLOGICAL: No focal neurological deficits. <Lucita Sánchez - Last Filed: 05/25/17 23:45> - Vital Signs Last Vital Signs Temp Pulse Resp BP Pulse Ox 90 14 154/79 100 05/25/17 22:32 05/25/17 22:32 05/25/17 22:32 05/25/17 22:32 <Janna Christine - Last Filed: 05/26/17 02:09> ED Treatment Course - LABORATORY CBC & Chemistry Diagram: 05/26/17 00:20 05/26/17 00:20 <Janna Christine - Last Filed: 05/26/17 02:09> Medical Decision Making - Medical Decision Making 05/26/17 01:31 52-year-old male with a long-standing history of alcoholism and liver cirrhosis. Presents because he has been extremely weak for the past 2 weeks. He denies any fever, vomiting, diarrhea, chest pain or shortness of breath. His abdominal exam shows a soft abdomen and no rebound or guarding. Lungs are clear to auscultation. CVS regular rate and rhythm. Extremities significant for extensive psoriasis. Alert and oriented but feels very lethargic, He is moving all his extremities purposefully ECG reveals a hemoglobin of 7 and a hematocrit of 21. Case discussed with Dr. LOIS carter and the patient will be admitted to [facility] for blood transfusions. Alcohol level is above 240 Chemistries reveal a continued elevation of his liver function tests. Plan check magnesium level, supplement his potassium, IVF w thiamine , type and screen for 2 units of packed RBCs for transfusion ADMIT MED/SURG <Janna Christine - Last Filed: 05/26/17 02:09> *DC/Admit/Observation/Transfer - Attestations Scribe Attestion: 05/25/17 23:45 Documentation prepared by Lucita Sánchez, acting as medical education manager for Janna Christine MD. <Lucita Sánchez - Last Filed: 05/25/17 23:45> - Discharge Dispostion Admit: Yes <Janna Christine - Last Filed: 05/26/17 02:09> Diagnosis at time of Disposition: Jaundice, Leg edema Alcoholic cirrhosis Qualifiers: Ascites presence: with ascites Qualified Code(s): K70.31 - Alcoholic cirrhosis of liver with ascites; K70.31 - Alcoholic cirrhosis of liver with ascites; K70.31 - Alcoholic cirrhosis of liver with ascites Anemia Qualifiers: Anemia type: unspecified type Qualified Code(s): D64.9 - Anemia, unspecified; D64.9 - Anemia, unspecified - Referrals Referrals: Prakash Ashley MD [Primary Care Provider] -
[2017-05-26] MEDS ORDERED: chlordiazePOXIDE HCL 25 MG CAPSULE PO ONE (00:07)
[2017-05-26] MEDS ORDERED: chlordiazePOXIDE HCL 25 MG CAPSULE ONE (00:16)
[2017-05-26 00:36] LABS: BASOPHIL 1.4 % (0-2.0); EOSINOPHIL 2.4 % (0-4.5); MCH 37.4 pg (25.7-33.7); MCHC 35.4 g/dl (32.0-35.9); MEAN CELL VOLUME 105.6 fl (80-96); NEUTROPHILS 53.8 % (42.8-82.8); RDW 15.1 % (11.9-15.9); WHITE BLOOD COUNT 10.2 K/mm3 (4.0-10.0)
[2017-05-26 00:50] LABS: INR 2.15 (0.82-1.09); PROTHROMBIN TIME (PATIENT) 24.3 SEC (9.98-11.88)
[2017-05-26 01:01] LABS: ALBUMIN 2.3 g/dl (3.4-5.0); ANION GAP 13 (8-16); BILIRUBIN,TOTAL 6.3 mg/dL (0.2-1.0); CALCIUM 7.4 mg/dL (8.5-10.1); CO2 25 mmol/L (21-32); CREATININE 0.9 mg/dL (0.7-1.3); GLUCOSE,RANDOM 128 mg/dL (74-106); SGOT/AST 80 U/L (15-37); SGPT/ALT 18 U/L (12-78); TOT PROT 8.3 g/dl (6.4-8.2)
[2017-05-26 01:02] LABS: ALK PHOS 106 U/L (45-117); TROPONIN I 0.03 ng/ml (0.00-0.05)
[2017-05-26] MEDS ORDERED: POTASSIUM CHLORIDE TABS 20 MEQ TABLET.ER (FP) PO ONE ×2 (01:21→01:31)
[2017-05-26] MEDS ORDERED: FOLIC ACID INJECTION - 1 MG, THIAMINE HCL 100 MG, MULTIVIT INJECTION ADULT 10 ML in SOD... IVPB ONE (01:23)
[2017-05-26 01:39] LABS: PLATELET COUNT 70 K/MM3 (134-434)
[2017-05-26 01:40] LABS: ANISOCYTOSIS 1+; HYPOCHROMIA 1+; MACROCYTOSIS 1+; PLATELET ESTIMATE MOD DECREASED (NORMAL)
[2017-05-26 05:12] VITALS: BMI 32.1
[2017-05-26] MEDS ORDERED: NADOLOL 20 MG TABLET (FP) ONE (09:58)
[2017-05-26] MEDS ORDERED: PT OWN MED DRAWER 7, Y5N ONE ×3 (10:05→18:27)
[2017-05-26] MEDS: oxyCODONE HCL 5 MG TABLET PO PRN ×2 (10:08→18:28)
[2017-05-26] MEDS: FUROSEMIDE 40 MG TABLET (FP) PO SCH ×2 (10:18→14:45)
[2017-05-26] MEDS: SPIRONOLACTONE 25 MG TABLET (FP) PO SCH ×2 (10:18→21:46)
[2017-05-26] MEDS: PANTOPRAZOLE 40 MG TABLET (FP) PO SCH (10:19)
[2017-05-26] MEDS: FOLIC ACID 1 MG TABLET (FP) PO SCH (10:19)
[2017-05-26] MEDS: THIAMINE HCL 100 MG TABLET (FP) PO SCH (10:19)
[2017-05-26] MEDS: RIFAXIMIN 550 MG TABLET (UD) PO SCH ×2 (10:19→21:46)
[2017-05-26] MEDS: NADOLOL 40 MG TABLET (FP) PO SCH (10:20)
[2017-05-26] MEDS ORDERED: chlordiazePOXIDE HCL 25 MG CAPSULE PO SCH (11:00)
--- NOTE | 2017-05-26 11:30 | CON.GI ---
Consult Consult Specialty:: GI: Dr. Shell for Dr. Bhakta Referred by:: Dr. Ashley Reason for Consultation:: Alcoholic Cirrhosis - History of Present Illness Chief Complaint: I was weak History of Present Illness: 52M admitted for evaluation of weakness / failure to thrive. He has a history of decompensated liver cirrhosis, has followed with Dr. Bhakta and has followed at [facility] with liver transplant attending Dr. Michelle Barajas. He underwent EGD and colonoscopy at [facility] and had variceal banding performed 12/16 and failed to follow-up for surveillance enoscopy. He has missed several appointments with Dr. Barajas and has again been drinking alcohol since at least January. He attributes this relapse to the illness and of his father at that time, however he failed to follow-up for continued care for his alcoholism prior to this. His blood alcohol level was 246 in the ED. Currently, he denies shortness of breath, abdominal pain, vomiting, rectal bleeding melena, fevers or chills. He has been drinking alcohol regulalry but describes diminished appetite. He also describes loose bowel movements. The has been no change in behavior / mental status at home. His is present at bedside. In ER blood work was performed that revealed Hgb 7.7 with platelet count of 70, INR of 2.15. He finished receiving 1 U PRBC upon my eval this morning. - History Source History Provided By: Patient, Family Member Limitations to Obtaining History: No Limitations - Past Medical History Cardio/Vascular: Yes: HTN Gastrointestinal: Yes: Ascites Hepatobiliary: Yes: Cirrhosis (Alcohol induced, decompensated), Other (History of severe alcoholic hepatitis, hepatic encephalopathy) Musculoskeletal: Yes: Other (Cellulitis and tenosynovitis +/- osteomyelitis 3rd/ 4th digit of left hand) Dermatology: Yes: Cellulitis (of LE and of hand), Psoriasis - Alcohol/Substance Use Hx Alcohol Use: No History of Substance Use: reports: None - Smoking History Smoking history: Never smoked Have you smoked in the past 12 months: No - Social History Usual Living Arrangement: With Spouse ADL: Independent Occupation: disabled Place of : [facility] History of Recent Travel: No Home Medications - Allergies Allergies/Adverse Reactions: Allergies Allergy/AdvReac Type Severity Reaction Status Date / Time No Known Allergies Allergy Verified 05/25/17 22:31 - Home Medications Home Medications: Ambulatory Orders Nadolol 40 mg PO DAILY 12/03/16 Pantoprazole Sodium [Protonix] 40 mg PO DAILY 12/03/16 Folic Acid 0.8 mg PO DAILY 12/21/16 Furosemide [Lasix] 80 mg PO BID 12/21/16 Magnesium 500 mg PO DAILY 12/21/16 Oxycodone HCl 5 mg PO Q6H PRN 12/21/16 Thiamine HCl [Vitamin B1] 100 mg PO DAILY 12/21/16 Spironolactone 50 mg PO BID 03/17/17 Hydroxyzine HCl [Atarax -] 25 mg PO Q6H PRN #0 tablet 03/20/17 Rifaximin [Xifaxan -] 550 mg PO BID tablet 03/20/17 Family Disease History - Family Disease History Other Family History: Non contribuatory Review of Systems - Review of Systems Constitutional: reports: Loss of Appetite, Weakness. denies: Chills, Fever Cardiovascular: denies: Chest Pain Respiratory: denies: Cough, SOB Gastrointestinal: reports: Diarrhea (loose BM's). denies: Constipation Genitourinary: denies: Dysuria Neurological: denies: Change in LOC, Confusion Physical Exam-GI Vital Signs: Vital Signs Temperature 98.2 F 05/26/17 04:38 Pulse Rate 96 H 05/26/17 04:38 Respiratory Rate 20 05/26/17 04:38 Blood Pressure 150/75 05/26/17 04:38 O2 Sat by Pulse Oximetry (%) 96 05/26/17 04:38 Constitutional: Yes: Calm Eyes: No: Sclera Icterus Cardiovascular: Yes: Regular Rate and Rhythm, Tachycardia, Murmur Respiratory: Yes: Diminished (at bases with poor inspiratory effort) Gastrointestinal Inspection: No: Distention, Scars ...Auscultate: Yes: Normoactive Bowel Sounds ...Palpate: No: Hepatomegaly, Splenomegaly, Tenderness ...Percussion: No: Tympanitic Edema: Yes Edema: LLE: 2+ (pitting), RLE: 2+ (pitting) Neurological: Yes: Alert, Oriented. No: [facility] Labs: INR, PTT INR 2.15 (0.82-1.09) H 05/26/17 00:20 Hepatic Panel Total Bilirubin 6.3 mg/dL (0.2-1.0) H D 05/26/17 00:20 AST 80 U/L (15-37) H D 05/26/17 00:20 ALT 18 U/L (12-78) 05/26/17 00:20 Alkaline Phosphatase 106 U/L (45-117) 05/26/17 00:20 Albumin 2.3 g/dl (3.4-5.0) L 05/26/17 00:20 INR, PTT INR 2.15 (0.82-1.09) H 05/26/17 00:20 CBC, BMP 05/26/17 00:20 05/26/17 00:20 Laboratory Tests 12/05/16 06:00 Tumor Marker AFP 2.5 Problem List - Problems (1) Alcoholic cirrhosis Assessment/Plan: Decompensated with h/o esophageal varices, ascites, encephalopathy. Current MELD : 23 Mr. Gottlieb continues to drink alcohol. His wants him to undergo inpatient detox, be evaluated for depression and have continued care at a [facility] facility. I discussed in detail with both Mr. Gottlieb and his regarding the severity of his liver disease. They are aware that continued alcohol use will only worsen the condition of his liver and expedite his from complications of his disease. They are also aware that this impacts his candidacy for liver transplantation. Advise: 2g low Na diet Q 6 month AFP tumor marker and liver US to screen for hepatoma (ordered today) Withdrawal precautions Continue Corgard for now Detox eval Psych eval I asked that they discuss continued psych/detox care as outpatient with Dr. Ashley For possible surveilance EGD on wednesday05/28/17 depending on clinical condition Diagnostic paracentesis pending results of abdominal US Code(s): K70.30 - ALCOHOLIC CIRRHOSIS OF LIVER WITHOUT ASCITES Qualifiers: Ascites presence: with ascites Qualified Code(s): K70.31 - Alcoholic cirrhosis of liver with ascites; K70.31 - Alcoholic cirrhosis of liver with ascites; K70.31 - Alcoholic cirrhosis of liver with ascites (2) Anemia Assessment/Plan: No overt bleeding described Likely multifactorial including continued alcoholism with myelosuppression / chronic disease Consider heme eval Would consider checking CBC prior to 2nd unit PRBC. Code(s): D64.9 - ANEMIA, UNSPECIFIED Qualifiers: Anemia type: unspecified type Qualified Code(s): D64.9 - Anemia, unspecified; D64.9 - Anemia, unspecified
[2017-05-26] MEDS: hydrOXYzine HCL 25 MG TABLET (FP) PO PRN ×2 (11:38→18:28)
[2017-05-26] MEDS ORDERED: PHYTONADIONE 10 MG/1 ML AMP SQ ONE (12:15)
--- NOTE | 2017-05-26 13:05 | EKG ---
Test Reason : Blood Pressure : / mmHG Vent. Rate : 092 BPM Atrial Rate : 092 BPM P-R Int : 154 ms QRS Dur : 094 ms QT Int : 410 ms P-R-T Axes : 056 026 050 degrees QTc Int : 507 ms NORMAL SINUS RHYTHM PROLONGED QT ABNORMAL ECG WHEN COMPARED WITH ECG OF 18-MAR-2017 08:44, NO SIGNIFICANT CHANGE WAS FOUND Confirmed by SYDNEE MCKNIGHT MD ([id number]) on 05/26/2017 1:05:03 PM Referred By: Confirmed By:SYDNEE MCKNIGHT MD
[2017-05-26 13:46] LABS: MCH 36.4 pg (25.7-33.7); MCHC 35.4 g/dl (32.0-35.9); MEAN CELL VOLUME 102.8 fl (80-96); MEAN PLT VOLUME 7.5 fl (7.5-11.1); PLATELET COUNT 46 K/MM3 (134-434); RDW 17.9 % (11.9-15.9); WHITE BLOOD COUNT 7.6 K/mm3 (4.0-10.0)
--- NOTE | 2017-05-26 14:49 | CONSULT ---
Consult Detox [facility] Reason for Current Admission/Consult: alcohol withdrawal sx/alcohol use disorder Referred by:: Dr. Ashley - History History of Present Illness: 52 yo m with h/o chronic alcoholism, relapsed to daily alcohol use in January, brought in to hospital unwell and found to be severely anemic requiring transfusion. Patient has been on libirum 25mg q6h since admission but would prefer to switch to a valium detox while hospitalized. Denies all other illicit drug use c/o back pain relieved by prn oxycodone ordered. gives h/o depression causing relapse, denies h/o seizures or DTS. last in detox 1 year ago - History Source History Provided By: Patient, Medical Record, Caregiver Limitations to Obtaining History: No Limitations - Alcohol/Substance Use Hx Alcohol Use: Yes Hx Substance Use: No Hx Substance Use Treatment: Yes - Current Drug/Alcohol Use Alcohol Route: Oral Frequency: Daily Amount used: 1-2 pints daily Age of first use: 18 - Past Medical History Cardio/Vascular: Yes: HTN Gastrointestinal: Yes: Ascites Hepatobiliary: Yes: Cirrhosis (Alcohol induced, decompensated), Other (History of severe alcoholic hepatitis, hepatic encephalopathy) Musculoskeletal: Yes: Other (Cellulitis and tenosynovitis +/- osteomyelitis 3rd/ 4th digit of left hand) Dermatology: Yes: Cellulitis (of LE and of hand), Psoriasis - Significant Medical Findings: alert and oriented, anxious in mild withdrawal on librium ATC CIWA Score - CIWA Score Nausea/Vomitin Muscle Tremors: 2 Anxiety: 2 Agitation: 0-Normal Activity Paroxysmal Sweats: No Perspiration Orientation: 0-Oriented Tacttile Disturbances: 1-Very Mild Itch/Numbness Auditory Disturbances: 0-None Visual Disturbances: 0-None Headache: 0-None Present CIWA-Ar Total Score: 8 Assessment Plan - Diagnosis (1) Alcohol dependence with uncomplicated withdrawal Status: Acute (2) Alcoholic cirrhosis Status: Acute Qualifiers: Ascites presence: with ascites Qualified Code(s): K70.31 - Alcoholic cirrhosis of liver with ascites; K70.31 - Alcoholic cirrhosis of liver with ascites; K70.31 - Alcoholic cirrhosis of liver with ascites (3) Anemia Status: Acute Qualifiers: Anemia type: unspecified type Qualified Code(s): D64.9 - Anemia, unspecified; D64.9 - Anemia, unspecified (4) Depression with anxiety Status: Acute - Medication Detox Regimen/Protocol: Valium
[2017-05-26] MEDS ORDERED: diazePAM 5 MG TABLET PO ONE (15:09)
[2017-05-26] MEDS ORDERED: diazePAM 5 MG TABLET PO PRN (15:09)
--- NOTE | 2017-05-26 16:26 | HP ---
Admitting History and Physical - Primary Care Physician PCP: Prakash Ashley - Admission Chief Complaint: Alcoholic cirrhosis History of Present Illness: 52M admitted for evaluation of weakness / failure to thrive. He has a history of decompensated liver cirrhosis, has followed with Dr. Bhakta and has followed at [facility] with liver transplant attending Dr. Michelle Barajas. He underwent EGD and colonoscopy at [facility] and had variceal banding performed 12/16 and failed to follow-up for surveillance endoscopy. He has missed several appointments with Dr. Barajas and has again been drinking alcohol since at least January. He attributes this relapse to the illness and of his father at that time, however he failed to follow-up for continued care for his alcoholism prior to this. His blood alcohol level was 246 in the ED. Currently, he denies shortness of breath, abdominal pain, vomiting, rectal bleeding melena, fevers or chills. He has been drinking alcohol regularly but describes diminished appetite. He also describes loose bowel movements. The has been no change in behavior / mental status at home. His is present at bedside. In ER blood work was performed that revealed Hgb 7.7 with platelet count of 70, INR of 2.15. He finished receiving 1 U PRBC upon my eval this morning. History Source: Patient Limitations to Obtaining History: No Limitations - Past Medical History Cardiovascular: Yes: HTN Gastrointestinal: Yes: Ascites Hepatobiliary: Yes: Cirrhosis (Alcohol induced, decompensated), Other (History of severe alcoholic hepatitis, hepatic encephalopathy) Musculoskeletal: Yes: Other (Cellulitis and tenosynovitis +/- osteomyelitis 3rd/ 4th digit of left hand) Dermatology: Yes: Cellulitis (of LE and of hand), Psoriasis - Smoking History Smoking history: Never smoked Have you smoked in the past 12 months: No - Alcohol/Substance Use Hx Alcohol Use: No History of Substance Use: reports: None - Social History ADL: Independent Occupation: disabled History of Recent Travel: No Home Medications - Allergies Allergies/Adverse Reactions: Allergies Allergy/AdvReac Type Severity Reaction Status Date / Time No Known Allergies Allergy Verified 05/25/17 22:31 - Home Medications Home Medications: Ambulatory Orders Nadolol 40 mg PO DAILY 12/03/16 Pantoprazole Sodium [Protonix] 40 mg PO DAILY 12/03/16 Folic Acid 0.8 mg PO DAILY 12/21/16 Furosemide [Lasix] 80 mg PO BID 12/21/16 Magnesium 500 mg PO DAILY 12/21/16 Oxycodone HCl 5 mg PO Q6H PRN 12/21/16 Thiamine HCl [Vitamin B1] 100 mg PO DAILY 12/21/16 Spironolactone 50 mg PO BID 03/17/17 Hydroxyzine HCl [Atarax -] 25 mg PO Q6H PRN #0 tablet 03/20/17 Rifaximin [Xifaxan -] 550 mg PO BID tablet 03/20/17 Family Disease History - Family Disease History Other Family History: Non contribuatory Review of Systems - Review of Systems Constitutional: reports: Lethargy, Weakness Eyes: reports: No Symptoms HENT: reports: No Symptoms Neck: reports: No Symptoms Cardiovascular: reports: No Symptoms Respiratory: reports: No Symptoms Gastrointestinal: reports: No Symptoms Genitourinary: reports: No Symptoms Breasts: reports: No Symptoms Reported Musculoskeletal: reports: No Symptoms Integumentary: reports: No Symptoms Neurological: reports: No Symptoms Endocrine: reports: No Symptoms Hematology/Lymphatic: reports: No Symptoms Psychiatric: reports: Altered Sleep Pattern, Anxiety, Depression Physical Examination Vital Signs: Vital Signs Temperature 98.4 F 05/26/17 15:27 Pulse Rate 106 H 05/26/17 15:27 Respiratory Rate 20 05/26/17 15:27 Blood Pressure 150/81 05/26/17 15:27 O2 Sat by Pulse Oximetry (%) 96 05/26/17 04:38 Constitutional: Yes: Well Nourished, No Distress, Calm Cardiovascular: Yes: Regular Rate and Rhythm Respiratory: Yes: Regular Gastrointestinal: Yes: Normal Bowel Sounds Extremities: Yes: WNL Edema: Yes (BLLE) Peripheral Pulses WNL: Yes Integumentary: Yes: Rash (Psoriatic rash BLLE) Neurological: Yes: Alert, Oriented Psychiatric: Yes: Alert, Oriented, Other (depressed, feels anxious at this time) Labs: CBC, BMP 05/26/17 13:00 Problem List - Problems (1) Alcoholic cirrhosis Assessment/Plan: -seen by GI -doesn't want to go to [place], wants to look into private rehabs -monitor labs for now -Q 6 month AFP tumor marker and liver US to screen for hepatoma (ordered today) -Withdrawal precautions- seen by Dr Seewald, detox on Valium -Psych eval Code(s): K70.30 - ALCOHOLIC CIRRHOSIS OF LIVER WITHOUT ASCITES Qualifiers: Ascites presence: with ascites Qualified Code(s): K70.31 - Alcoholic cirrhosis of liver with ascites; K70.31 - Alcoholic cirrhosis of liver with ascites; K70.31 - Alcoholic cirrhosis of liver with ascites (2) Anemia Assessment/Plan: -received 1 unit PRBC, H/H still low -iron studies, b12 and folate -Stool ob -hematology consult -to receive 2nd unit of PRBC Code(s): D64.9 - ANEMIA, UNSPECIFIED Qualifiers: Anemia type: unspecified type Qualified Code(s): D64.9 - Anemia, unspecified; D64.9 - Anemia, unspecified (3) Psoriasis Assessment/Plan: Clobatesol ointment BID on BLLE Code(s): L40.9 - PSORIASIS, UNSPECIFIED (4) Depression with anxiety Assessment/Plan: -psych consult -Valium as needed -doesn't want to go to [place], would consider private rehabs Code(s): F41.8 - OTHER SPECIFIED ANXIETY DISORDERS Assessment/Plan see problem list
[2017-05-26] MEDS: MAGNESIUM OXIDE 400 MG TABLET (FP) PO SCH (21:46)
[2017-05-26] MEDS: diazePAM 5 MG TABLET PO SCH (21:46)
[2017-05-27] MEDS: hydrOXYzine HCL 25 MG TABLET (FP) PO PRN ×4 (00:01→19:42)
[2017-05-27] MEDS: oxyCODONE HCL 5 MG TABLET PO PRN ×3 (00:07→21:09)
[2017-05-27] MEDS: FUROSEMIDE 40 MG TABLET (FP) PO SCH ×2 (06:28→14:02)
[2017-05-27] MEDS: diazePAM 5 MG TABLET PO SCH ×3 (06:30→21:08)
[2017-05-27 08:47] LABS: ALBUMIN 2.5 g/dl (3.4-5.0); ANION GAP 12 (8-16); CALCIUM 7.8 mg/dL (8.5-10.1); CO2 28 mmol/L (21-32); GLUCOSE,RANDOM 137 mg/dL (74-106)
[2017-05-27 08:50] LABS: ALK PHOS 105 U/L (45-117); BILIRUBIN,TOTAL 9.2 mg/dL (0.2-1.0); CREATININE 1.2 mg/dL (0.7-1.3); SGOT/AST 72 U/L (15-37); SGPT/ALT 17 U/L (12-78); TOT PROT 8.6 g/dl (6.4-8.2)
[2017-05-27 08:51] LABS: BASOPHIL 0.7 % (0-2.0); EOSINOPHIL 2.2 % (0-4.5); MCH 36.4 pg (25.7-33.7); MCHC 35.5 g/dl (32.0-35.9); MEAN CELL VOLUME 102.5 fl (80-96); NEUTROPHILS 61.9 % (42.8-82.8); PLATELET COUNT 47 K/MM3 (134-434); RDW 18.1 % (11.9-15.9); WHITE BLOOD COUNT 7.1 K/mm3 (4.0-10.0)
[2017-05-27 09:09] LABS: INR 2.07 (0.82-1.09); PROTHROMBIN TIME (PATIENT) 23.4 SEC (9.98-11.88)
[2017-05-27] MEDS ORDERED: NADOLOL 20 MG TABLET (FP) ONE (10:39)
[2017-05-27] MEDS ORDERED: PT OWN MED DRAWER 7, Y5N ONE ×2 (10:40→11:56)
[2017-05-27] MEDS: SPIRONOLACTONE 25 MG TABLET (FP) PO SCH ×2 (10:44→21:07)
[2017-05-27] MEDS: MAGNESIUM OXIDE 400 MG TABLET (FP) PO SCH ×2 (10:45→21:07)
[2017-05-27] MEDS: PANTOPRAZOLE 40 MG TABLET (FP) PO SCH (10:45)
[2017-05-27] MEDS: FOLIC ACID 1 MG TABLET (FP) PO SCH (10:45)
[2017-05-27] MEDS: THIAMINE HCL 100 MG TABLET (FP) PO SCH (10:45)
[2017-05-27] MEDS: RIFAXIMIN 550 MG TABLET (UD) PO SCH ×2 (10:45→21:08)
[2017-05-27] MEDS: NADOLOL 40 MG TABLET (FP) PO SCH (10:50)
[2017-05-27] MEDS: TRIAMCINOLONE ACET 0.1% OINT 15 GM TUBE TP SCH ×2 (13:14→21:38)
--- NOTE | 2017-05-27 18:00 | PN ---
Progress Note, Physician Chief Complaint: Anemia,liver cirrhosis, depression, ETOH History of Present Illness: NAD, sitting at the edge of the bed, ambulatory feels better today doesn't want to go to [facility] inpatient rehab, would like to do [facility] outpatient program in [place] 3 days/week - Current Medication List Current Medications: Active Medications Diazepam (Valium -) 10 mg PO Q4H PRN PRN Reason: WITHDRAWAL(CONT SUBST) Stop: 05/29/17 15:08 Diazepam (Valium -) 5 mg PO TID [facility] Stop: 05/27/17 22:01 Last Admin: 05/27/17 14:34 Dose: 5 mg Diazepam (Valium -) 5 mg PO BID [facility] Stop: 05/29/17 22:01 Diazepam (Valium -) 5 mg PO DAILY [facility] Stop: 05/30/17 10:01 Folic Acid (Folic Acid -) 1 mg PO DAILY [facility] Last Admin: 05/27/17 10:45 Dose: 1 mg Furosemide (Lasix -) 80 mg PO BIDLASIX [facility] Last Admin: 05/27/17 14:02 Dose: 80 mg Hydroxyzine HCl (Atarax -) 25 mg PO Q6H PRN PRN Reason: ANXIETY Last Admin: 05/27/17 13:15 Dose: 25 mg Magnesium Oxide (Mag-Ox -) 400 mg PO BID [facility] Last Admin: 05/27/17 10:45 Dose: 400 mg Nadolol (Corgard -) 40 mg PO DAILY [facility] Last Admin: 05/27/17 10:50 Dose: 40 mg Oxycodone HCl (Roxicodone -) 5 mg PO Q6H PRN PRN Reason: PAIN Last Admin: 05/27/17 10:47 Dose: 5 mg Pantoprazole Sodium (Protonix -) 40 mg PO DAILY [facility] Last Admin: 05/27/17 10:45 Dose: 40 mg Rifaximin (Xifaxan -) 550 mg PO BID [facility] Last Admin: 05/27/17 10:45 Dose: 550 mg Spironolactone (Aldactone -) 50 mg PO BID [facility] Last Admin: 05/27/17 10:44 Dose: 50 mg Thiamine HCl (Vitamin B1 -) 100 mg PO DAILY [facility] Last Admin: 05/27/17 10:45 Dose: 100 mg Triamcinolone Acetonide (Aristocort 0.1% Ointment -) 1 applic TP BID [facility] Last Admin: 05/27/17 13:14 Dose: 1 applic - Objective Vital Signs: Vital Signs Temperature 97.9 F 05/27/17 16:15 Pulse Rate 85 05/27/17 16:15 Respiratory Rate 20 05/27/17 16:15 Blood Pressure 147/68 05/27/17 16:15 O2 Sat by Pulse Oximetry (%) 96 05/27/17 09:00 Constitutional: Yes: Well Nourished, No Distress, Calm Eyes: Yes: Sclera Icterus Cardiovascular: Yes: Regular Rate and Rhythm Respiratory: Yes: Regular Gastrointestinal: Yes: Normal Bowel Sounds Musculoskeletal: Yes: WNL Extremities: Yes: Erythema (BLLE) Edema: Yes (BLLE) Peripheral Pulses WNL: Yes Integumentary: Yes: Jaundice Neurological: Yes: Alert, Oriented Psychiatric: Yes: Alert, Oriented Labs: CBC, BMP 05/27/17 07:00 05/27/17 07:00 INR, PTT INR 2.07 (0.82-1.09) H 05/27/17 07:00 Problem List - Problems (1) Alcoholic cirrhosis Assessment/Plan: -seen by GI -doesn't want to go to [place], wants to go outpatient program 3 days/week in [place] -monitor labs for now -Q 6 month AFP tumor marker and liver US to screen for hepatoma (ordered today) -Withdrawal precautions- seen by Dr James, detox on Valium -Psych eval pending Code(s): K70.30 - ALCOHOLIC CIRRHOSIS OF LIVER WITHOUT ASCITES Qualifiers: Ascites presence: with ascites Qualified Code(s): K70.31 - Alcoholic cirrhosis of liver with ascites; K70.31 - Alcoholic cirrhosis of liver with ascites; K70.31 - Alcoholic cirrhosis of liver with ascites (2) Anemia Assessment/Plan: -received 2 unit PRBC this admission -iron studies, b12 and folate pending -Stool ob pending -hematology consult -H/H improved Code(s): D64.9 - ANEMIA, UNSPECIFIED Qualifiers: Anemia type: unspecified type Qualified Code(s): D64.9 - Anemia, unspecified; D64.9 - Anemia, unspecified (3) Psoriasis Assessment/Plan: Triamcinolone 0.25% ointment BID on BLLE Code(s): L40.9 - PSORIASIS, UNSPECIFIED (4) Depression with anxiety Assessment/Plan: -exacerbated after his father's passing in January 2017. -psych consult -Valium as needed -doesn't want to go to [place] Code(s): F41.8 - OTHER SPECIFIED ANXIETY DISORDERS Assessment/Plan see problem list
--- NOTE | 2017-05-27 19:04 | CON.PSL ---
Psychology Consult Consult Specialty:: Clinical Psychology Reason for Consultation:: Depression and Anxiety associated with Alcoholism History Provided By: Family Member Limitations to Obtaining History: No Limitations Current Medications: Active Medications Diazepam (Valium -) 10 mg PO Q4H PRN PRN Reason: WITHDRAWAL(CONT SUBST) Stop: 05/29/17 15:08 Diazepam (Valium -) 5 mg PO TID [facility] Stop: 05/27/17 22:01 Last Admin: 05/27/17 14:34 Dose: 5 mg Diazepam (Valium -) 5 mg PO BID [facility] Stop: 05/29/17 22:01 Diazepam (Valium -) 5 mg PO DAILY [facility] Stop: 05/30/17 10:01 Folic Acid (Folic Acid -) 1 mg PO DAILY [facility] Last Admin: 05/27/17 10:45 Dose: 1 mg Furosemide (Lasix -) 80 mg PO BIDLASIX [facility] Last Admin: 05/27/17 14:02 Dose: 80 mg Hydroxyzine HCl (Atarax -) 25 mg PO Q6H PRN PRN Reason: ANXIETY Last Admin: 05/27/17 13:15 Dose: 25 mg Magnesium Oxide (Mag-Ox -) 400 mg PO BID [facility] Last Admin: 05/27/17 10:45 Dose: 400 mg Nadolol (Corgard -) 40 mg PO DAILY [facility] Last Admin: 05/27/17 10:50 Dose: 40 mg Oxycodone HCl (Roxicodone -) 5 mg PO Q6H PRN PRN Reason: PAIN Last Admin: 05/27/17 10:47 Dose: 5 mg Pantoprazole Sodium (Protonix -) 40 mg PO DAILY [facility] Last Admin: 05/27/17 10:45 Dose: 40 mg Rifaximin (Xifaxan -) 550 mg PO BID [facility] Last Admin: 05/27/17 10:45 Dose: 550 mg Spironolactone (Aldactone -) 50 mg PO BID [facility] Last Admin: 05/27/17 10:44 Dose: 50 mg Thiamine HCl (Vitamin B1 -) 100 mg PO DAILY [facility] Last Admin: 05/27/17 10:45 Dose: 100 mg Triamcinolone Acetonide (Aristocort 0.1% Ointment -) 1 applic TP BID [facility] Last Admin: 05/27/17 13:14 Dose: 1 applic Allergies: Allergies Allergy/AdvReac Type Severity Reaction Status Date / Time No Known Allergies Allergy Verified 05/25/17 22:31 Does patient have pain?: Yes Pain Location Body Site: Hip (Pt. experiences L-hip pain at level 7 radiating into lower extremity. R-Shoulder pain level is about a 6.) Pain Description: Chronic Hx Alcohol Use: Yes (The patient has a history of alcoholism. He has been in detox and rehab.) Hx Substance Use: No Substance Use Type: Alcohol Hx Substance Use Treatment: No - Family History Family History: Unremarkable (The patient's was present for the evaluation and provided additional information. The patient's paternal uncles had a hx of alcoholism or alcohol abuse. His mentioned that Carlos A has a long standing hx of depression. His anxiety is said to become extreme at times.) Current Medical Exam-Psy Attention: Alert Orientation: Time, Person, Place Immediate Term Memory: 10/02 Expressive: Coherent Receptive: Age Appropriate Comprehension of Spoken Words Hallucinations: Absent Thought Process: Intact (It is worth noting that he does not agree with inpatient rehabilitation but would consider outpatient treatment at a facility such as the [facility].) Depression: Moderate (Although Carlos A does not feel his depression is too severe , his is more concerned about his mood. She feels he has been depressed for a long time and agrees that he may have also self medicated with alcohol.) Hopelessness: Yes Loss of Interest: Yes Anxiety Level: Severe (Once again the patient may not admit to severe anxiety but his feels that he does become very anxious at times. In addition, he had instances of losing his temper and throwing objects albeit not at anyone but still he could have hurt someone unintentionally.) Danger to Self and Others: No (He denies suicidal and homicidal ideation. However, his feels that he has exhibited behaviors suggestive of his giving up on life at times. Excessive use of Vodka appears to be his medication of choice for depression.) Sleep: Fair (His sleep varies depending in venue-home or hospital.) Appetite: Fair (Once again, his appetite varies depending on the situation he is in.) Serial Sevens Intact: Yes (He was able to complete the task after awhile.) Repeats 3 words told earlier: 10/02 Support System: Spouse Leisure activities: With Family (He has two daughters (ages 12 and 15). They enjoy outings such as fishing trips as a family.) Problem List - Problem (1) Alcohol dependence with uncomplicated withdrawal Code(s): F10.230 - ALCOHOL DEPENDENCE WITH WITHDRAWAL, UNCOMPLICATED (2) Depression with anxiety Assessment/Plan: The patient will be seen while he remains as a patient in this facility. We discussed viable options for continuation of treatment upon discharge from [facility]. Treatment here will consist of cognitive behavior therapy, diaphragmatic breathing and mindfulness exercises with guided imagery. Family therapy is also recommended.
[2017-05-28] MEDS: hydrOXYzine HCL 25 MG TABLET (FP) PO PRN (00:34)
[2017-05-28 06:07] LABS: SERUM IRON 180 ug/dL (38-169); TOTAL IRON BINDING CAPACITY < 197 ug/dL (250-450); UIBC < 17 ug/dL (111-343)
[2017-05-28] MEDS ORDERED: ceFAZolin SODIUM 1 GM VIAL ONE ×2 (09:18→09:26)
--- NOTE | 2017-05-28 10:24 | PN ---
Progress Note, Physician Chief Complaint: Anemia,liver cirrhosis, depression, ETOH History of Present Illness: NAD, sitting at the edge of the bed, ambulatory feels better today doesn't want to go to [facility] inpatient rehab, would like to do [facility] outpatient program in [place] 3 days/week Had endoscopy this AM - Current Medication List Current Medications: Active Medications Diazepam (Valium -) 10 mg PO Q4H PRN PRN Reason: WITHDRAWAL(CONT SUBST) Stop: 05/29/17 15:08 Diazepam (Valium -) 5 mg PO BID [facility] Stop: 05/29/17 22:01 Diazepam (Valium -) 5 mg PO DAILY [facility] Stop: 05/30/17 10:01 Folic Acid (Folic Acid -) 1 mg PO DAILY [facility] Last Admin: 05/27/17 10:45 Dose: 1 mg Furosemide (Lasix -) 80 mg PO BIDLASIX [facility] Last Admin: 05/27/17 14:02 Dose: 80 mg Hydroxyzine HCl (Atarax -) 50 mg PO Q6H PRN PRN Reason: ANXIETY Last Admin: 05/28/17 00:34 Dose: 50 mg Magnesium Oxide (Mag-Ox -) 400 mg PO BID [facility] Last Admin: 05/27/17 21:07 Dose: 400 mg Nadolol (Corgard -) 40 mg PO DAILY [facility] Last Admin: 05/27/17 10:50 Dose: 40 mg Oxycodone HCl (Roxicodone -) 5 mg PO Q6H PRN PRN Reason: PAIN Last Admin: 05/27/17 21:09 Dose: 5 mg Pantoprazole Sodium (Protonix -) 40 mg PO DAILY [facility] Last Admin: 05/27/17 10:45 Dose: 40 mg Rifaximin (Xifaxan -) 550 mg PO BID [facility] Last Admin: 05/27/17 21:08 Dose: 550 mg Spironolactone (Aldactone -) 50 mg PO BID [facility] Last Admin: 05/27/17 21:07 Dose: 50 mg Thiamine HCl (Vitamin B1 -) 100 mg PO DAILY [facility] Last Admin: 05/27/17 10:45 Dose: 100 mg Triamcinolone Acetonide (Aristocort 0.1% Ointment -) 1 applic TP BID [facility] Last Admin: 05/27/17 21:38 Dose: 1 applic - Objective Vital Signs: Vital Signs Temperature 98.1 F 05/28/17 10:12 Pulse Rate 92 H 05/28/17 10:12 Respiratory Rate 18 05/28/17 10:12 Blood Pressure 120/61 05/28/17 10:12 O2 Sat by Pulse Oximetry (%) 100 05/28/17 10:12 Constitutional: Yes: Well Nourished, No Distress, Calm Cardiovascular: Yes: Regular Rate and Rhythm Respiratory: Yes: Regular Gastrointestinal: Yes: Normal Bowel Sounds Musculoskeletal: Yes: WNL Extremities: Yes: WNL Edema: Yes (BLLE) Peripheral Pulses WNL: Yes Integumentary: Yes: Erythema (BLLE) Neurological: Yes: Alert, Oriented Psychiatric: Yes: Alert, Oriented Labs: CBC, BMP 05/27/17 07:00 05/27/17 07:00 INR, PTT INR 2.07 (0.82-1.09) H 05/27/17 07:00 Problem List - Problems (1) Alcoholic cirrhosis Assessment/Plan: -seen by GI -doesn't want to go to [place], wants to go outpatient program 3 days/week in [place] -monitor labs for now -Q 6 month AFP tumor marker and liver US to screen for hepatoma (ordered today) -Withdrawal precautions- seen by Dr James, detox on Valium -Psych eval pending Code(s): K70.30 - ALCOHOLIC CIRRHOSIS OF LIVER WITHOUT ASCITES Qualifiers: Ascites presence: with ascites Qualified Code(s): K70.31 - Alcoholic cirrhosis of liver with ascites; K70.31 - Alcoholic cirrhosis of liver with ascites; K70.31 - Alcoholic cirrhosis of liver with ascites (2) Anemia Assessment/Plan: -received 2 unit PRBC this admission -iron studies, b12 and folate pending -Stool ob pending -hematology consult -H/H improved Code(s): D64.9 - ANEMIA, UNSPECIFIED Qualifiers: Anemia type: unspecified type Qualified Code(s): D64.9 - Anemia, unspecified; D64.9 - Anemia, unspecified (3) Psoriasis Assessment/Plan: Triamcinolone 0.25% ointment BID on BLLE Code(s): L40.9 - PSORIASIS, UNSPECIFIED (4) Depression with anxiety Assessment/Plan: -exacerbated after his father's passing in January 2017. -psych consult -Valium as needed -doesn't want to go to [place] Code(s): F41.8 - OTHER SPECIFIED ANXIETY DISORDERS Assessment/Plan see problem list
--- NOTE | 2017-05-28 10:59 | PN ---
Progress Note (short form) - Note Progress Note: GI Procedure Note: Please see EGD report. Prepyloric gastritis and a shallow duodenal ulcer were found. Two distal esophageal varices were noted, one with a red jamie. Both were banded. He was told to avoid NSAIDs and of course alcohol. Pantoprazole should be continued. He did get Kefzol prophylaxis before the procedure.
[2017-05-28] MEDS ORDERED: MAG HYDROX/AL HYDROX/SIMETH 30 ML UNIT-DOSE CUP PO PRN (11:00)
[2017-05-28] MEDS: FUROSEMIDE 40 MG TABLET (FP) PO SCH ×2 (11:40→14:08)
[2017-05-28] MEDS ORDERED: NADOLOL 20 MG TABLET (FP) ONE (11:44)
[2017-05-28] MEDS: TRIAMCINOLONE ACET 0.1% OINT 15 GM TUBE TP SCH ×2 (11:47→21:31)
[2017-05-28] MEDS: SPIRONOLACTONE 25 MG TABLET (FP) PO SCH ×2 (11:47→21:30)
[2017-05-28] MEDS: FOLIC ACID 1 MG TABLET (FP) PO SCH (11:48)
[2017-05-28] MEDS: MAGNESIUM OXIDE 400 MG TABLET (FP) PO SCH ×2 (11:48→21:31)
[2017-05-28] MEDS: NADOLOL 40 MG TABLET (FP) PO SCH (11:48)
[2017-05-28] MEDS: RIFAXIMIN 550 MG TABLET (UD) PO SCH ×2 (11:49→21:31)
[2017-05-28] MEDS: THIAMINE HCL 100 MG TABLET (FP) PO SCH (11:49)
[2017-05-28] MEDS: diazePAM 5 MG TABLET PO SCH ×2 (11:49→21:31)
[2017-05-28] MEDS: oxyCODONE HCL 5 MG TABLET PO PRN ×2 (11:51→17:50)
[2017-05-28] MEDS: PANTOPRAZOLE 40 MG TABLET (FP) PO SCH ×2 (12:08→21:30)
[2017-05-28 12:39] LABS: BASOPHIL 0.5 % (0-2.0); EOSINOPHIL 0.4 % (0-4.5); MCH 36.7 pg (25.7-33.7); MCHC 35.5 g/dl (32.0-35.9); MEAN CELL VOLUME 103.5 fl (80-96); MEAN PLT VOLUME 9.3 fl (7.5-11.1); NEUTROPHILS 70.1 % (42.8-82.8); PLATELET COUNT 49 K/MM3 (134-434); RDW 17.8 % (11.9-15.9); WHITE BLOOD COUNT 6.4 K/mm3 (4.0-10.0)
[2017-05-28 12:40] LABS: ALBUMIN 2.4 g/dl (3.4-5.0); ALK PHOS 135 U/L (45-117); ANION GAP 7 (8-16); BILIRUBIN,TOTAL 5.7 mg/dL (0.2-1.0); CALCIUM 7.9 mg/dL (8.5-10.1); CO2 32 mmol/L (21-32); CREATININE 1.6 mg/dL (0.7-1.3); GLUCOSE,RANDOM 163 mg/dL (74-106); SGOT/AST 58 U/L (15-37); SGPT/ALT 17 U/L (12-78); TOT PROT 8.4 g/dl (6.4-8.2)
[2017-05-29] MEDS: hydrOXYzine HCL 25 MG TABLET (FP) PO PRN ×4 (00:32→23:35)
[2017-05-29] MEDS: FUROSEMIDE 40 MG TABLET (FP) PO SCH ×2 (06:18→15:04)
[2017-05-29] MEDS: oxyCODONE HCL 5 MG TABLET PO PRN ×3 (07:52→21:13)
[2017-05-29] MEDS ORDERED: NADOLOL 20 MG TABLET (FP) ONE (09:37)
[2017-05-29] MEDS ORDERED: PT OWN MED DRAWER 7, Y5N ONE (09:38)
[2017-05-29] MEDS: MAGNESIUM OXIDE 400 MG TABLET (FP) PO SCH ×2 (09:39→21:12)
[2017-05-29] MEDS: FOLIC ACID 1 MG TABLET (FP) PO SCH (09:39)
[2017-05-29] MEDS: RIFAXIMIN 550 MG TABLET (UD) PO SCH ×2 (09:39→21:11)
[2017-05-29] MEDS: PANTOPRAZOLE 40 MG TABLET (FP) PO SCH ×2 (09:39→21:12)
[2017-05-29] MEDS: THIAMINE HCL 100 MG TABLET (FP) PO SCH (09:39)
[2017-05-29] MEDS: SPIRONOLACTONE 25 MG TABLET (FP) PO SCH ×2 (09:39→21:12)
[2017-05-29] MEDS: NADOLOL 40 MG TABLET (FP) PO SCH (09:39)
[2017-05-29] MEDS: diazePAM 5 MG TABLET PO SCH ×2 (09:40→21:12)
--- NOTE | 2017-05-29 10:56 | PN ---
Progress Note, Physician Chief Complaint: EVENTS AND NOTES REVIEWED ON VALIUM PROTOCOL FOR ETOH WITHDRAWALS - Current Medication List Current Medications: Active Medications Al Hydroxide/Mg Hydroxide (Mylanta Oral Suspension -) 30 ml PO Q6H PRN PRN Reason: DYSPEPSIA Diazepam (Valium -) 5 mg PO BID [facility] Stop: 05/29/17 22:01 Last Admin: 05/29/17 09:40 Dose: 5 mg Diazepam (Valium -) 5 mg PO DAILY [facility] Stop: 05/30/17 10:01 Folic Acid (Folic Acid -) 1 mg PO DAILY [facility] Last Admin: 05/29/17 09:39 Dose: 1 mg Furosemide (Lasix -) 80 mg PO BIDLASIX [facility] Last Admin: 05/29/17 06:18 Dose: 80 mg Hydroxyzine HCl (Atarax -) 50 mg PO Q6H PRN PRN Reason: ANXIETY Last Admin: 05/29/17 09:48 Dose: 50 mg Magnesium Oxide (Mag-Ox -) 400 mg PO BID [facility] Last Admin: 05/29/17 09:39 Dose: 400 mg Nadolol (Corgard -) 40 mg PO DAILY [facility] Last Admin: 05/29/17 09:39 Dose: 40 mg Oxycodone HCl (Roxicodone -) 5 mg PO Q6H PRN PRN Reason: PAIN Last Admin: 05/29/17 07:52 Dose: 5 mg Pantoprazole Sodium (Protonix -) 40 mg PO BID [facility] Last Admin: 05/29/17 09:39 Dose: 40 mg Rifaximin (Xifaxan -) 550 mg PO BID [facility] Last Admin: 05/29/17 09:39 Dose: 550 mg Spironolactone (Aldactone -) 50 mg PO BID [facility] Last Admin: 05/29/17 09:39 Dose: 50 mg Thiamine HCl (Vitamin B1 -) 100 mg PO DAILY [facility] Last Admin: 05/29/17 09:39 Dose: 100 mg Triamcinolone Acetonide (Aristocort 0.1% Ointment -) 1 applic TP BID [facility] Last Admin: 05/28/17 21:31 Dose: 1 applic - Objective Vital Signs: Vital Signs Temperature 98 F 05/28/17 20:00 Pulse Rate 82 05/28/17 20:00 Respiratory Rate 20 05/28/17 21:00 Blood Pressure 127/67 05/28/17 20:00 O2 Sat by Pulse Oximetry (%) 98 05/28/17 21:00 Constitutional: Yes: Mild Distress Eyes: Yes: WNL HENT: Yes: WNL Neck: Yes: WNL Cardiovascular: Yes: WNL Respiratory: Yes: WNL Gastrointestinal: Yes: Ascites, Distention Genitourinary: Yes: WNL Musculoskeletal: Yes: WNL Extremities: Yes: WNL Edema: Yes Peripheral Pulses WNL: Yes Integumentary: Yes: Venous Stasis Changes Wound/Incision: Yes: Reddened, Other Neurological: Yes: Pre-Existing Deficit ...Motor Strength: LLE, RLE Psychiatric: Yes: Other Labs: CBC, BMP 05/28/17 12:10 05/28/17 12:10 INR, PTT INR 2.07 (0.82-1.09) H 05/27/17 07:00 Problem List - Problems (1) Alcohol dependence with uncomplicated withdrawal Code(s): F10.230 - ALCOHOL DEPENDENCE WITH WITHDRAWAL, UNCOMPLICATED (2) Alcoholic cirrhosis Code(s): K70.30 - ALCOHOLIC CIRRHOSIS OF LIVER WITHOUT ASCITES Qualifiers: Ascites presence: with ascites Qualified Code(s): K70.31 - Alcoholic cirrhosis of liver with ascites; K70.31 - Alcoholic cirrhosis of liver with ascites; K70.31 - Alcoholic cirrhosis of liver with ascites (3) Anemia Code(s): D64.9 - ANEMIA, UNSPECIFIED Qualifiers: Anemia type: unspecified type Qualified Code(s): D64.9 - Anemia, unspecified; D64.9 - Anemia, unspecified (4) Depression with anxiety Code(s): F41.8 - OTHER SPECIFIED ANXIETY DISORDERS (5) Jaundice Code(s): R17 - UNSPECIFIED JAUNDICE (6) Leg edema Code(s): R60.0 - LOCALIZED EDEMA (7) Coagulopathy Code(s): D68.9 - COAGULATION DEFECT, UNSPECIFIED (8) Pruritic condition Code(s): L29.9 - PRURITUS, UNSPECIFIED Assessment/Plan ETOH WITHDRAWEL VALIUM PSYCH/GI EVAL S/P ENDOSCOPY
[2017-05-29] MEDS: TRIAMCINOLONE ACET 0.1% OINT 15 GM TUBE TP SCH ×2 (11:14→21:12)
--- NOTE | 2017-05-29 11:23 | PN ---
Progress Note (short form) - Note Progress Note: The patient shared his concerns over the next step in his treatment-outpatient alcohol counseling facility or inpatient. He is interested in the outpatient treatment program and states that he wants to avoid relapse. The patient is aware of the potential outcomes if he were to relapse. We addressed his medical concerns as well. He seems to benefit from counseling as he has a need to share his feelings and he is receptive to professional feedback. Problem List - Problems (1) Alcohol dependence with uncomplicated withdrawal Code(s): F10.230 - ALCOHOL DEPENDENCE WITH WITHDRAWAL, UNCOMPLICATED (2) Depression with anxiety
[2017-05-30] MEDS: FUROSEMIDE 40 MG TABLET (FP) PO SCH ×2 (05:27→14:14)
[2017-05-30 07:33] LABS: MCHC 35.7 g/dl (32.0-35.9); MEAN CELL VOLUME 103.6 fl (80-96); MEAN PLT VOLUME 9.8 fl (7.5-11.1); PLATELET COUNT 56 K/MM3 (134-434); RDW 17.5 % (11.9-15.9); WHITE BLOOD COUNT 9.1 K/mm3 (4.0-10.0)
[2017-05-30 08:19] LABS: CALCIUM 8.2 mg/dL (8.5-10.1)
[2017-05-30 08:25] LABS: ALBUMIN 2.3 g/dl (3.4-5.0); ALK PHOS 171 U/L (45-117); ANION GAP 7 (8-16); BILIRUBIN,TOTAL 4.3 mg/dL (0.2-1.0); CO2 31 mmol/L (21-32); CREATININE 1.6 mg/dL (0.7-1.3); GLUCOSE,RANDOM 185 mg/dL (74-106); SGOT/AST 45 U/L (15-37); SGPT/ALT 14 U/L (12-78); TOT PROT 8.1 g/dl (6.4-8.2)
[2017-05-30] MEDS ORDERED: PT OWN MED DRAWER 7, Y5N ONE (09:01)
[2017-05-30] MEDS ORDERED: diazePAM 5 MG TABLET PO SCH (10:00)
[2017-05-30] MEDS: PANTOPRAZOLE 40 MG TABLET (FP) PO SCH ×2 (10:15→22:15)
[2017-05-30] MEDS: RIFAXIMIN 550 MG TABLET (UD) PO SCH ×2 (10:15→22:14)
[2017-05-30] MEDS: THIAMINE HCL 100 MG TABLET (FP) PO SCH (10:15)
[2017-05-30] MEDS: MAGNESIUM OXIDE 400 MG TABLET (FP) PO SCH ×2 (10:15→22:14)
[2017-05-30] MEDS: FOLIC ACID 1 MG TABLET (FP) PO SCH (10:15)
[2017-05-30] MEDS: NADOLOL 40 MG TABLET (FP) PO SCH (10:16)
[2017-05-30] MEDS: SPIRONOLACTONE 25 MG TABLET (FP) PO SCH ×2 (10:16→22:15)
--- NOTE | 2017-05-30 10:27 | PN ---
Progress Note, Physician Chief Complaint: AWAKE MORE ALERT NAD - Current Medication List Current Medications: Active Medications Al Hydroxide/Mg Hydroxide (Mylanta Oral Suspension -) 30 ml PO Q6H PRN PRN Reason: DYSPEPSIA Folic Acid (Folic Acid -) 1 mg PO DAILY [facility] Last Admin: 05/30/17 10:15 Dose: 1 mg Furosemide (Lasix -) 80 mg PO BIDLASIX [facility] Last Admin: 05/30/17 05:27 Dose: 80 mg Hydroxyzine HCl (Atarax -) 50 mg PO Q6H PRN PRN Reason: ANXIETY Last Admin: 05/29/17 23:35 Dose: 50 mg Magnesium Oxide (Mag-Ox -) 400 mg PO BID [facility] Last Admin: 05/30/17 10:15 Dose: 400 mg Nadolol (Corgard -) 40 mg PO DAILY [facility] Last Admin: 05/30/17 10:16 Dose: 40 mg Oxycodone HCl (Roxicodone -) 5 mg PO Q6H PRN PRN Reason: PAIN Last Admin: 05/29/17 21:13 Dose: 5 mg Pantoprazole Sodium (Protonix -) 40 mg PO BID [facility] Last Admin: 05/30/17 10:15 Dose: 40 mg Rifaximin (Xifaxan -) 550 mg PO BID [facility] Last Admin: 05/30/17 10:15 Dose: 550 mg Spironolactone (Aldactone -) 50 mg PO BID [facility] Last Admin: 05/30/17 10:16 Dose: 50 mg Thiamine HCl (Vitamin B1 -) 100 mg PO DAILY [facility] Last Admin: 05/30/17 10:15 Dose: 100 mg Triamcinolone Acetonide (Aristocort 0.1% Ointment -) 1 applic TP BID [facility] Last Admin: 05/29/17 21:12 Dose: Not Given - Objective Vital Signs: Vital Signs Temperature 97.9 F 05/30/17 06:51 Pulse Rate 86 05/30/17 06:51 Respiratory Rate 20 05/30/17 06:51 Blood Pressure 111/59 05/30/17 06:51 O2 Sat by Pulse Oximetry (%) 95 05/29/17 21:00 Constitutional: Yes: No Distress Eyes: Yes: WNL HENT: Yes: WNL Neck: Yes: WNL Cardiovascular: Yes: WNL Respiratory: Yes: WNL Gastrointestinal: Yes: Ascites, Distention Genitourinary: Yes: WNL Musculoskeletal: Yes: WNL Extremities: Yes: Erythema Edema: Yes Peripheral Pulses WNL: Yes Integumentary: Yes: Erythema, Venous Stasis Changes Wound/Incision: Yes: Dressing Dry and Intact Neurological: Yes: Pre-Existing Deficit Psychiatric: Yes: WNL Labs: CBC, BMP 05/30/17 06:00 05/30/17 06:00 INR, PTT INR 2.07 (0.82-1.09) H 05/27/17 07:00 Problem List - Problems (1) Alcohol dependence with uncomplicated withdrawal Code(s): F10.230 - ALCOHOL DEPENDENCE WITH WITHDRAWAL, UNCOMPLICATED (2) Alcoholic cirrhosis Code(s): K70.30 - ALCOHOLIC CIRRHOSIS OF LIVER WITHOUT ASCITES Qualifiers: Ascites presence: with ascites Qualified Code(s): K70.31 - Alcoholic cirrhosis of liver with ascites; K70.31 - Alcoholic cirrhosis of liver with ascites; K70.31 - Alcoholic cirrhosis of liver with ascites (3) Anemia Code(s): D64.9 - ANEMIA, UNSPECIFIED Qualifiers: Anemia type: unspecified type Qualified Code(s): D64.9 - Anemia, unspecified; D64.9 - Anemia, unspecified (4) Depression with anxiety Code(s): F41.8 - OTHER SPECIFIED ANXIETY DISORDERS (5) Jaundice Code(s): R17 - UNSPECIFIED JAUNDICE (6) Leg edema Code(s): R60.0 - LOCALIZED EDEMA (7) Coagulopathy Code(s): D68.9 - COAGULATION DEFECT, UNSPECIFIED (8) Pruritic condition Code(s): L29.9 - PRURITUS, UNSPECIFIED Assessment/Plan ETOH WITHDRAWEL VALIUM PSYCH/GI EVAL S/P ENDOSCOPY
[2017-05-30] MEDS: hydrOXYzine HCL 25 MG TABLET (FP) PO PRN (11:24)
[2017-05-30] MEDS: TRIAMCINOLONE ACET 0.1% OINT 80 GM TUBE TP SCH ×2 (14:15→22:18)
[2017-05-30] MEDS: TRIAMCINOLONE ACET 0.1% OINT 15 GM TUBE TP SCH (14:21)
[2017-05-30] MEDS: oxyCODONE HCL 5 MG TABLET PO PRN (17:45)
[2017-05-30] MEDS: diazePAM 2 MG TABLET PO PRN (22:14)
[2017-05-31] MEDS: oxyCODONE HCL 5 MG TABLET PO PRN ×4 (00:04→23:49)
[2017-05-31] MEDS: hydrOXYzine HCL 25 MG TABLET (FP) PO PRN ×4 (00:05→23:48)
[2017-05-31] MEDS: FUROSEMIDE 40 MG TABLET (FP) PO SCH ×2 (06:18→13:34)
[2017-05-31 08:10] LABS: MCHC 35.3 g/dl (32.0-35.9); MEAN CELL VOLUME 104.8 fl (80-96); MEAN PLT VOLUME 9.8 fl (7.5-11.1); PLATELET COUNT 54 K/MM3 (134-434); RDW 17.8 % (11.9-15.9); WHITE BLOOD COUNT 8.1 K/mm3 (4.0-10.0)
[2017-05-31 08:36] LABS: ALBUMIN 2.2 g/dl (3.4-5.0); ALK PHOS 145 U/L (45-117); ANION GAP 9 (8-16); BILIRUBIN,TOTAL 3.3 mg/dL (0.2-1.0); CALCIUM 8.2 mg/dL (8.5-10.1); CO2 30 mmol/L (21-32); CREATININE 1.5 mg/dL (0.7-1.3); GLUCOSE,RANDOM 234 mg/dL (74-106); SGOT/AST 38 U/L (15-37); SGPT/ALT 14 U/L (12-78); TOT PROT 7.3 g/dl (6.4-8.2)
--- NOTE | 2017-05-31 10:15 | PN ---
Progress Note, Physician Chief Complaint: patient awake alert oriented d/w with him about his blood work - Current Medication List Current Medications: Active Medications Al Hydroxide/Mg Hydroxide (Mylanta Oral Suspension -) 30 ml PO Q6H PRN PRN Reason: DYSPEPSIA Diazepam (Valium -) 2 mg PO Q8H PRN PRN Reason: AGITATION Last Admin: 05/30/17 22:14 Dose: 2 mg Folic Acid (Folic Acid -) 1 mg PO DAILY [facility] Last Admin: 05/30/17 10:15 Dose: 1 mg Furosemide (Lasix -) 80 mg PO BIDLASIX [facility] Last Admin: 05/31/17 06:18 Dose: 80 mg Hydroxyzine HCl (Atarax -) 50 mg PO Q6H PRN PRN Reason: ANXIETY Last Admin: 05/31/17 00:05 Dose: 50 mg Magnesium Oxide (Mag-Ox -) 400 mg PO BID [facility] Last Admin: 05/30/17 22:14 Dose: 400 mg Nadolol (Corgard -) 40 mg PO DAILY [facility] Last Admin: 05/30/17 10:16 Dose: 40 mg Oxycodone HCl (Roxicodone -) 5 mg PO Q6H PRN PRN Reason: PAIN Last Admin: 05/31/17 00:04 Dose: 5 mg Pantoprazole Sodium (Protonix -) 40 mg PO BID [facility] Last Admin: 05/30/17 22:15 Dose: 40 mg Rifaximin (Xifaxan -) 550 mg PO BID [facility] Last Admin: 05/30/17 22:14 Dose: 550 mg Spironolactone (Aldactone -) 50 mg PO BID [facility] Last Admin: 05/30/17 22:15 Dose: 50 mg Thiamine HCl (Vitamin B1 -) 100 mg PO DAILY [facility] Last Admin: 05/30/17 10:15 Dose: 100 mg Triamcinolone Acetonide (Aristocort 0.1% Ointment -) 1 applic TP BID [facility] Last Admin: 05/30/17 22:18 Dose: 1 applic - Objective Vital Signs: Vital Signs Temperature 98.2 F 05/30/17 22:00 Pulse Rate 77 05/30/17 22:00 Respiratory Rate 20 05/30/17 22:00 Blood Pressure 129/74 05/30/17 22:00 O2 Sat by Pulse Oximetry (%) 95 05/30/17 09:00 Constitutional: Yes: Calm Eyes: Yes: Sclera Icterus Cardiovascular: Yes: Regular Rate and Rhythm, S1, S2 Respiratory: Yes: CTA Bilaterally Gastrointestinal: Yes: Ascites, Distention Edema: LLE: 2+, RLE: 2+ Neurological: Yes: Alert, Oriented Labs: CBC, BMP 05/31/17 07:00 05/31/17 07:00 INR, PTT INR 2.07 (0.82-1.09) H 05/27/17 07:00 Problem List - Problems (1) Anemia Assessment/Plan: prbc today heme eval PPI s/p EGD esophageal varices banded Code(s): D64.9 - ANEMIA, UNSPECIFIED Qualifiers: Anemia type: unspecified type Qualified Code(s): D64.9 - Anemia, unspecified; D64.9 - Anemia, unspecified (2) Alcoholic cirrhosis Assessment/Plan: nadalol rifaximin thiamine seen by psych, Code(s): K70.30 - ALCOHOLIC CIRRHOSIS OF LIVER WITHOUT ASCITES Qualifiers: Ascites presence: with ascites Qualified Code(s): K70.31 - Alcoholic cirrhosis of liver with ascites; K70.31 - Alcoholic cirrhosis of liver with ascites; K70.31 - Alcoholic cirrhosis of liver with ascites (3) Leg edema Assessment/Plan: lasix aldactone Code(s): R60.0 - LOCALIZED EDEMA
[2017-05-31] MEDS ORDERED: NADOLOL 20 MG TABLET (FP) ONE (10:26)
[2017-05-31] MEDS: MAGNESIUM OXIDE 400 MG TABLET (FP) PO SCH ×2 (10:27→21:40)
[2017-05-31] MEDS: SPIRONOLACTONE 25 MG TABLET (FP) PO SCH ×2 (10:27→21:40)
[2017-05-31] MEDS: FOLIC ACID 1 MG TABLET (FP) PO SCH (10:28)
[2017-05-31] MEDS: RIFAXIMIN 550 MG TABLET (UD) PO SCH ×2 (10:29→21:40)
[2017-05-31] MEDS: THIAMINE HCL 100 MG TABLET (FP) PO SCH (10:29)
[2017-05-31] MEDS: PANTOPRAZOLE 40 MG TABLET (FP) PO SCH ×2 (10:29→21:40)
[2017-05-31] MEDS: NADOLOL 40 MG TABLET (FP) PO SCH (10:32)
[2017-05-31] MEDS: TRIAMCINOLONE ACET 0.1% OINT 80 GM TUBE TP SCH ×2 (10:35→21:40)
[2017-05-31] MEDS: diazePAM 2 MG TABLET PO PRN ×2 (13:34→21:39)
--- NOTE | 2017-05-31 22:58 | CONSULT ---
Consult - text type - Consultation Consultation Note: 52M admitted for evaluation of weakness / failure to thrive. He has a history of decompensated liver cirrhosis, has followed with Dr. Bhakta and has followed at [facility] with liver transplant attending Dr. Michelle Barajas. He underwent EGD and colonoscopy at [facility] and had variceal banding performed 12/16 and failed to follow-up for surveillance endoscopy. Currently, he denies shortness of breath, abdominal pain, vomiting, rectal bleeding melena, fevers or chills. He has been drinking alcohol regularly but describes diminished appetite. He denies any active bleeding per rectum - Past Medical History Cardiovascular: Yes: HTN Gastrointestinal: Yes: Ascites Hepatobiliary: Yes: Cirrhosis (Alcohol induced, decompensated), Other (History of severe alcoholic hepatitis, hepatic encephalopathy) Musculoskeletal: Yes: Other (Cellulitis and tenosynovitis +/- osteomyelitis 3rd/ 4th digit of left hand) Dermatology: Yes: Cellulitis (of LE and of hand), Psoriasis - Smoking History Smoking history: Never smoked - Social History ADL: Independent Occupation: disabled - Allergies Allergies/Adverse Reactions: Allergies Allergy/AdvReac Type Severity Reaction Status Date / Time No Known Allergies Allergy Verified 05/25/17 22:31 - Home Medications Home Medications: Ambulatory Orders Nadolol 40 mg PO DAILY 12/03/16 Pantoprazole Sodium [Protonix] 40 mg PO DAILY 12/03/16 Folic Acid 0.8 mg PO DAILY 12/21/16 Furosemide [Lasix] 80 mg PO BID 12/21/16 Magnesium 500 mg PO DAILY 12/21/16 Oxycodone HCl 5 mg PO Q6H PRN 12/21/16 Thiamine HCl [Vitamin B1] 100 mg PO DAILY 12/21/16 Spironolactone 50 mg PO BID 03/17/17 Hydroxyzine HCl [Atarax -] 25 mg PO Q6H PRN #0 tablet 03/20/17 Rifaximin [Xifaxan -] 550 mg PO BID tablet 03/20/17 Family Disease History - Family Disease History Other Family History: Non contribuatory Physical Examination AFVSS Constitutional: Yes: Well Nourished, No Distress, Calm. ICTERIC Cardiovascular: Yes: Regular Rate and Rhythm Respiratory: Yes: Regular Gastrointestinal: Yes: Normal Bowel Sounds Extremities: Yes: WNL Edema: Yes (BLLE) Peripheral Pulses WNL: Yes Integumentary: Yes: Rash (Psoriatic rash BLLE) Neurological: Yes: Alert, Oriented Psychiatric: Yes: Alert, Oriented, Other (depressed, feels anxious at this time) Labs reviewed Assessment/Plan: CIRRHOSIS/ANEMIA/THROMBPCYTOPENIA/COAGULOPATHY Decompensated with h/o esophageal varices, ascites, encephalopathy. s/p EGD/Banding --varices/duodenal ulcer IROn studies s/o overload/B!@/folate--high, TSH--nl s/p 2 units PRBCS no overt bleeding monitor CBC transfuse FFP/platelets for active bleedning or prior to procedures
[2017-06-01] MEDS: FUROSEMIDE 40 MG TABLET (FP) PO SCH ×2 (05:42→14:49)
[2017-06-01] MEDS ORDERED: NADOLOL 20 MG TABLET (FP) ONE (09:05)
[2017-06-01] MEDS: MAGNESIUM OXIDE 400 MG TABLET (FP) PO SCH ×2 (09:27→21:04)
[2017-06-01] MEDS: SPIRONOLACTONE 25 MG TABLET (FP) PO SCH ×2 (09:27→21:03)
[2017-06-01] MEDS: RIFAXIMIN 550 MG TABLET (UD) PO SCH ×2 (09:27→21:04)
[2017-06-01] MEDS: FOLIC ACID 1 MG TABLET (FP) PO SCH (09:27)
[2017-06-01] MEDS: PANTOPRAZOLE 40 MG TABLET (FP) PO SCH ×2 (09:27→21:04)
[2017-06-01] MEDS: NADOLOL 40 MG TABLET (FP) PO SCH (09:28)
[2017-06-01] MEDS: THIAMINE HCL 100 MG TABLET (FP) PO SCH (09:28)
[2017-06-01] MEDS: hydrOXYzine HCL 25 MG TABLET (FP) PO PRN ×2 (09:28→19:09)
[2017-06-01] MEDS: TRIAMCINOLONE ACET 0.1% OINT 80 GM TUBE TP SCH ×2 (09:31→21:05)
[2017-06-01] MEDS: oxyCODONE HCL 5 MG TABLET PO PRN ×2 (09:34→19:08)
[2017-06-01] MEDS: diazePAM 2 MG TABLET PO PRN ×2 (09:35→19:08)
--- NOTE | 2017-06-01 10:31 | PN ---
Progress Note, Physician Chief Complaint: Anemia,liver cirrhosis, depression, ETOH History of Present Illness: NAD, sitting at the edge of the bed, ambulatory feels better today doesn't want to go to [facility] inpatient rehab, [facility] in [place] 3 days/week seen by hematology received PRBC yesterday repeat labs pending today - Current Medication List Current Medications: Active Medications Al Hydroxide/Mg Hydroxide (Mylanta Oral Suspension -) 30 ml PO Q6H PRN PRN Reason: DYSPEPSIA Diazepam (Valium -) 2 mg PO Q8H PRN PRN Reason: AGITATION Last Admin: 06/01/17 09:35 Dose: 2 mg Folic Acid (Folic Acid -) 1 mg PO DAILY [facility] Last Admin: 06/01/17 09:27 Dose: 1 mg Furosemide (Lasix -) 80 mg PO BIDLASIX [facility] Last Admin: 06/01/17 05:42 Dose: 80 mg Hydroxyzine HCl (Atarax -) 50 mg PO Q6H PRN PRN Reason: ANXIETY Last Admin: 06/01/17 09:28 Dose: 50 mg Magnesium Oxide (Mag-Ox -) 400 mg PO BID [facility] Last Admin: 06/01/17 09:27 Dose: 400 mg Nadolol (Corgard -) 40 mg PO DAILY [facility] Last Admin: 06/01/17 09:28 Dose: 40 mg Oxycodone HCl (Roxicodone -) 5 mg PO Q6H PRN PRN Reason: PAIN Last Admin: 06/01/17 09:34 Dose: 5 mg Pantoprazole Sodium (Protonix -) 40 mg PO BID [facility] Last Admin: 06/01/17 09:27 Dose: 40 mg Rifaximin (Xifaxan -) 550 mg PO BID [facility] Last Admin: 06/01/17 09:27 Dose: 550 mg Spironolactone (Aldactone -) 50 mg PO BID [facility] Last Admin: 06/01/17 09:27 Dose: 50 mg Thiamine HCl (Vitamin B1 -) 100 mg PO DAILY [facility] Last Admin: 06/01/17 09:28 Dose: 100 mg Triamcinolone Acetonide (Aristocort 0.1% Ointment -) 1 applic TP BID [facility] Last Admin: 06/01/17 09:31 Dose: 1 applic - Objective Vital Signs: Vital Signs Temperature 97.7 F 06/01/17 07:40 Pulse Rate 74 06/01/17 07:40 Respiratory Rate 20 06/01/17 07:40 Blood Pressure 116/66 06/01/17 07:40 O2 Sat by Pulse Oximetry (%) 98 05/31/17 21:00 Constitutional: Yes: Well Nourished, No Distress, Calm Cardiovascular: Yes: Regular Rate and Rhythm Respiratory: Yes: Regular Edema: Yes (BLLE) Peripheral Pulses WNL: Yes Neurological: Yes: Alert, Oriented Psychiatric: Yes: Alert, Oriented Labs: CBC, BMP 05/31/17 07:00 05/31/17 07:00 INR, PTT INR 2.07 (0.82-1.09) H 05/27/17 07:00 Problem List - Problems (1) Alcoholic cirrhosis Assessment/Plan: -seen by GI and hematology -evaluated by psychiatry -doesn't want to go to [place], wants to go outpatient program 3 days/week in [place] -monitor labs for now -Withdrawal precautions- seen by Dr James, detox on Valium Code(s): K70.30 - ALCOHOLIC CIRRHOSIS OF LIVER WITHOUT ASCITES Qualifiers: Ascites presence: with ascites Qualified Code(s): K70.31 - Alcoholic cirrhosis of liver with ascites; K70.31 - Alcoholic cirrhosis of liver with ascites; K70.31 - Alcoholic cirrhosis of liver with ascites (2) Anemia Assessment/Plan: -received 2 unit PRBC this admission -iron studies, b12 and folate pending -Stool ob pending -hematology consult -monitor H/H Code(s): D64.9 - ANEMIA, UNSPECIFIED Qualifiers: Anemia type: unspecified type Qualified Code(s): D64.9 - Anemia, unspecified; D64.9 - Anemia, unspecified (3) Psoriasis Assessment/Plan: Triamcinolone 0.25% ointment BID on BLLE Skin looks 50% better Code(s): L40.9 - PSORIASIS, UNSPECIFIED (4) Depression with anxiety Assessment/Plan: -exacerbated after his father's passing in January 2017. -psych consult -Valium as needed -will be enrolled with [facility] in [place], part of [place] Code(s): F41.8 - OTHER SPECIFIED ANXIETY DISORDERS (5) Liver cirrhosis Assessment/Plan: -improving -seen by GI Code(s): K74.60 - UNSPECIFIED CIRRHOSIS OF LIVER Qualifiers: Hepatic cirrhosis type: alcoholic cirrhosis Ascites presence: without ascites Qualified Code(s): K70.30 - Alcoholic cirrhosis of liver without ascites; K70.30 - Alcoholic cirrhosis of liver without ascites; K70.30 - Alcoholic cirrhosis of liver without ascites Assessment/Plan see problem list
[2017-06-01 11:07] LABS: BASOPHIL 0.9 % (0-2.0); EOSINOPHIL 1.5 % (0-4.5); MCH 35.9 pg (25.7-33.7); MCHC 34.7 g/dl (32.0-35.9); MEAN CELL VOLUME 103.5 fl (80-96); MEAN PLT VOLUME 9.3 fl (7.5-11.1); NEUTROPHILS 66.2 % (42.8-82.8); PLATELET COUNT 58 K/MM3 (134-434); RDW 18.5 % (11.9-15.9); WHITE BLOOD COUNT 9.5 K/mm3 (4.0-10.0)
[2017-06-01 11:39] LABS: ALBUMIN 2.4 g/dl (3.4-5.0); ANION GAP 7 (8-16); BILIRUBIN,TOTAL 5.1 mg/dL (0.2-1.0); CALCIUM 8.5 mg/dL (8.5-10.1); CO2 33 mmol/L (21-32); FREE T4 1.38 ng/dl (0.76-1.16); GLUCOSE,RANDOM 236 mg/dL (74-106); SGPT/ALT 17 U/L (12-78)
[2017-06-01 11:50] LABS: THYROID STIMULATING HORMONE 2.41 uIU/ml (0.358-3.74); TOT PROT 8.7 g/dl (6.4-8.2)
[2017-06-01 12:19] LABS: CREATININE 1.6 mg/dL (0.7-1.3); SGOT/AST 40 U/L (15-37)
[2017-06-01 12:20] LABS: ALK PHOS 145 U/L (45-117)
--- NOTE | 2017-06-01 17:52 | CON.PSY ---
Psychiatry Consult Chief Complaint: Patient apparantly refusing to go for In Patient Alcohol Rehab. Seen for [facility] to make decisions. - Previous Psychiatric Treatment Outpatient: None Inpatient: None - Previous Substance Abuse Treatment Inpatient: None - Reason for Previous Treatment Reason for Previous Treatment: Alcohol Abuse - Current Medications Current Medications: Active Medications Al Hydroxide/Mg Hydroxide (Mylanta Oral Suspension -) 30 ml PO Q6H PRN PRN Reason: DYSPEPSIA Diazepam (Valium -) 2 mg PO Q8H PRN PRN Reason: AGITATION Last Admin: 06/01/17 09:35 Dose: 2 mg Folic Acid (Folic Acid -) 1 mg PO DAILY [facility] Last Admin: 06/01/17 09:27 Dose: 1 mg Furosemide (Lasix -) 80 mg PO BIDLASIX [facility] Last Admin: 06/01/17 14:49 Dose: 80 mg Hydroxyzine HCl (Atarax -) 50 mg PO Q6H PRN PRN Reason: ANXIETY Last Admin: 06/01/17 09:28 Dose: 50 mg Magnesium Oxide (Mag-Ox -) 400 mg PO BID [facility] Last Admin: 06/01/17 09:27 Dose: 400 mg Nadolol (Corgard -) 40 mg PO DAILY [facility] Last Admin: 06/01/17 09:28 Dose: 40 mg Oxycodone HCl (Roxicodone -) 5 mg PO Q6H PRN PRN Reason: PAIN Last Admin: 06/01/17 09:34 Dose: 5 mg Pantoprazole Sodium (Protonix -) 40 mg PO BID [facility] Last Admin: 06/01/17 09:27 Dose: 40 mg Rifaximin (Xifaxan -) 550 mg PO BID [facility] Last Admin: 06/01/17 09:27 Dose: 550 mg Spironolactone (Aldactone -) 50 mg PO BID [facility] Last Admin: 06/01/17 09:27 Dose: 50 mg Thiamine HCl (Vitamin B1 -) 100 mg PO DAILY [facility] Last Admin: 06/01/17 09:28 Dose: 100 mg Triamcinolone Acetonide (Aristocort 0.1% Ointment -) 1 applic TP BID [facility] Last Admin: 06/01/17 09:31 Dose: 1 applic - Allergies Allergies: Allergies Allergy/AdvReac Type Severity Reaction Status Date / Time No Known Allergies Allergy Verified 05/25/17 22:31 - Current Living Status Usual Living Arrangement: With Spouse - Current Mental Status Evaluation Appearance: Well Groomed Attitude: Cooperative - Affect Affect: Full Range Appropriateness: Appropriate to Content - Mood Mood: Euthymic - Speech/Language Expressive: Coherent - Psychomotor Activity Psychomotor Activity: Slowed - Thought Process Thought Process: Intact - Thought Content Hallucinations: Absent Delusions: Absent - Self Perception Self Perception: No Impairment - Cognition Attention: Alert Orientation: Time Memory, Immediate Recall: Intact Memory, Short Term: 3/3 Memory, Remote with Promptin/3 - Concentration Serial Sevens Intact: No Simple Calculations Intact: No - Abstraction Proverb Interpretation: Intact Judgement: Minimally Impaired - Insight Insight: Intact - Impulse Control Impulse Control: Good Control - Suicidal Ideation Suicidal Ideation: No - Homicidal Ideation Homicidal Ideation: No Assessment/Plan 1) Patient has the capacity to make decisions at this time. 2) HE pland to attened [facility] for Rehab.
--- NOTE | 2017-06-01 23:18 | PN ---
Progress Note (short form) - Note Progress Note: Patient seen and examined Denies overt bleeding AFVSS HEENT:icterus Cor: RSR, No murmurs, No gallops Lungs: Clear to P&A Abd: Soft, Normal bowel sounds, No organomegaly Ext:No significant edema Abnormal Lab Results 06/01/17 06/01/17 06/01/17 10:50 10:50 10:50 RBC 2.70 L D Hgb 9.7 L D Hct 28.0 L D MCV 103.5 H MCH 35.9 H RDW 18.5 H Plt Count 58 L Monocytes % 13.6 H Sodium 133 L Chloride 93 L Carbon Dioxide 33 H Anion Gap 7 L BUN 33 H Creatinine 1.6 H Random Glucose 236 H Total Bilirubin 5.1 H D AST 40 H Alkaline Phosphatase 145 H Total Protein 8.7 H Albumin 2.4 L Vitamin B12 1973 H Serum Folate 32 H Free T4 1.38 H Active Medications Generic Name Dose Route Start Last Admin Trade Name Freq PRN Reason Stop Dose Admin Al Hydroxide/Mg Hydroxide 30 ml 05/28/17 11:00 Mylanta Oral Suspension - PO Q6H PRN DYSPEPSIA Diazepam 2 mg 05/30/17 10:28 06/01/17 19:08 Valium - PO 2 mg Q8H PRN Administration AGITATION Folic Acid 1 mg 05/26/17 10:00 06/01/17 09:27 Folic Acid - PO 1 mg DAILY [facility] Administration Furosemide 80 mg 05/26/17 08:30 06/02/17 06:40 Lasix - PO 80 mg BIDLASIX [facility] Administration Hydroxyzine HCl 50 mg 05/27/17 20:43 06/02/17 01:32 Atarax - PO 50 mg Q6H PRN Administration ANXIETY Magnesium Oxide 400 mg 05/26/17 22:00 06/01/17 21:04 Mag-Ox - PO 400 mg BID [facility] Administration Nadolol 40 mg 05/26/17 10:00 06/01/17 09:28 Corgard - PO 40 mg DAILY [facility] Administration Oxycodone HCl 5 mg 05/29/17 07:36 06/02/17 01:32 Roxicodone - PO 5 mg Q6H PRN Administration PAIN Pantoprazole Sodium 40 mg 05/28/17 22:00 06/01/17 21:04 Protonix - PO 40 mg BID [facility] Administration Rifaximin 550 mg 05/26/17 10:00 06/01/17 21:04 Xifaxan - PO 550 mg BID [facility] Administration Spironolactone 50 mg 05/26/17 10:00 06/01/17 21:03 Aldactone - PO 50 mg BID [facility] Administration Thiamine HCl 100 mg 05/26/17 10:00 06/01/17 09:28 Vitamin B1 - PO 100 mg DAILY [facility] Administration Triamcinolone Acetonide 1 applic 05/30/17 12:56 06/01/17 21:05 Aristocort 0.1% Ointment - TP 1 applic BID [facility] Administration A/P CIRRHOSIS/ANEMIA/THROMBPCYTOPENIA/COAGULOPATHY Decompensated with h/o esophageal varices, ascites, encephalopathy. s/p EGD/Banding --varices/duodenal ulcer IROn studies s/o overload/B12 /folate--high, TSH--nl s/p 2 units PRBCS no overt bleeding monitor CBC ---to ensure no active bleeding transfuse FFP/platelets for active bleedning or prior to procedures GI f/u regarding d/c planning
[2017-06-02] MEDS: hydrOXYzine HCL 25 MG TABLET (FP) PO PRN ×2 (01:32→10:32)
[2017-06-02] MEDS: oxyCODONE HCL 5 MG TABLET PO PRN ×2 (01:32→10:32)
[2017-06-02] MEDS: FUROSEMIDE 40 MG TABLET (FP) PO SCH ×2 (06:40→14:30)
--- NOTE | 2017-06-02 08:16 | DS ---
Physical Examination Vital Signs: Vital Signs Temperature 97.8 F 06/02/17 07:39 Pulse Rate 73 06/02/17 07:39 Respiratory Rate 20 06/02/17 07:39 Blood Pressure 119/68 06/02/17 07:39 O2 Sat by Pulse Oximetry (%) 98 06/01/17 21:00 Findings/Remarks: FEELS BETTER Cardiovascular: Yes: Regular Rate and Rhythm Respiratory: Yes: Regular, CTA Bilaterally Gastrointestinal: Yes: Normal Bowel Sounds, Soft, Ascites Discharge Summary Reason For Visit: ALCOHOLIC CIRRHOSIS JAUNDICE LEG EDEMA Current Active Problems Alcohol dependence with uncomplicated withdrawal (Acute) Alcoholic cirrhosis (Acute) Anemia (Acute) Depression with anxiety (Acute) Jaundice (Acute) Leg edema (Acute) Psoriasis (Acute) Hospital Course: 52M admitted for evaluation of weakness / failure to thrive. He has a history of decompensated liver cirrhosis, has followed with Dr. Bhakta and has followed at [facility] with liver transplant attending Dr. Michelle Barajas. He underwent EGD and colonoscopy at [facility] and had variceal banding performed 12/16 and failed to follow-up for surveillance endoscopy. He has missed several appointments with Dr. Barajas and has again been drinking alcohol since at least January. He attributes this relapse to the illness and of his father at that time, however he failed to follow-up for continued care for his alcoholism prior to this. His blood alcohol level was 246 in the ED. Currently, he denies shortness of breath, abdominal pain, vomiting, rectal bleeding melena, fevers or chills. He has been drinking alcohol regularly but describes diminished appetite. He also describes loose bowel movements. The has been no change in behavior / mental status at home. His is present at bedside. In ER blood work was performed that revealed Hgb 7.7 with platelet count of 70, INR of 2.15. He finished receiving 1 U PRBC upon my eval this morning. History Source: Patient Limitations to Obtaining History: No Limitations - Past Medical History Cardiovascular: Yes: HTN Gastrointestinal: Yes: Ascites Hepatobiliary: Yes: Cirrhosis (Alcohol induced, decompensated), Other (History of severe alcoholic hepatitis, hepatic encephalopathy) Musculoskeletal: Yes: Other (Cellulitis and tenosynovitis +/- osteomyelitis 3rd/ 4th digit of left hand) Dermatology: Yes: Cellulitis (of LE and of hand), Psoriasis - Problems (1) Alcoholic cirrhosis Assessment/Plan: -seen by GI and hematology -evaluated by psychiatry -doesn't want to go to [place], wants to go outpatient program 3 days/week in [place] -monitor labs for now -Withdrawal precautions- seen by Dr James, detox on Valium Code(s): K70.30 - ALCOHOLIC CIRRHOSIS OF LIVER WITHOUT ASCITES Qualifiers: Ascites presence: with ascites Qualified Code(s): K70.31 - Alcoholic cirrhosis of liver with ascites; K70.31 - Alcoholic cirrhosis of liver with ascites; K70.31 - Alcoholic cirrhosis of liver with ascites (2) Anemia Assessment/Plan: -received 2 unit PRBC this admission -iron studies, b12 and folate pending -Stool ob pending -hematology consult -monitor H/H Code(s): D64.9 - ANEMIA, UNSPECIFIED Qualifiers: Anemia type: unspecified type Qualified Code(s): D64.9 - Anemia, unspecified; D64.9 - Anemia, unspecified (3) Psoriasis Assessment/Plan: Triamcinolone 0.25% ointment BID on BLLE Skin looks 50% better Code(s): L40.9 - PSORIASIS, UNSPECIFIED (4) Depression with anxiety Assessment/Plan: -exacerbated after his father's passing in January 2017. -psych consult -Valium as needed -will be enrolled with [facility] in [place], part of [place] Code(s): F41.8 - OTHER SPECIFIED ANXIETY DISORDERS (5) Liver cirrhosis Assessment/Plan: -improving -seen by GI Code(s): K74.60 - UNSPECIFIED CIRRHOSIS OF LIVER Qualifiers: Hepatic cirrhosis type: alcoholic cirrhosis Ascites presence: without ascites Qualified Code(s): K70.30 - Alcoholic cirrhosis of liver without ascites; K70.30 - Alcoholic cirrhosis of liver without ascites; K70.30 - Alcoholic cirrhosis of liver without ascites D/W PT HE WILL START OUTPATIENT PROGRAM HE UNDERSTANDS IMPORTANCE OF ABSTINENCE Condition: Improved - Instructions Referrals: Prakash Ashley MD [Primary Care Provider] - Disposition: HOME - Home Medications Comprehensive Discharge Medication List: Ambulatory Orders Nadolol 40 mg PO DAILY 12/03/16 Furosemide [Lasix] 80 mg PO BID 12/21/16 Oxycodone HCl 5 mg PO Q6H PRN 12/21/16 Thiamine HCl [Vitamin B1] 100 mg PO DAILY 12/21/16 Spironolactone 50 mg PO BID 03/17/17 Hydroxyzine HCl [Atarax -] 25 mg PO Q6H PRN #0 tablet 03/20/17 Rifaximin [Xifaxan -] 550 mg PO BID tablet 03/20/17 Magnesium Oxide [Mag-Ox -] 400 mg PO BID tablet 06/02/17 Pantoprazole Sodium [Protonix -] 40 mg PO BID #60 tab 06/02/17
[2017-06-02 08:25] LABS: BASOPHIL 0.9 % (0-2.0); MCH 36.2 pg (25.7-33.7); MCHC 34.9 g/dl (32.0-35.9); MEAN CELL VOLUME 103.8 fl (80-96); MEAN PLT VOLUME 9.6 fl (7.5-11.1); NEUTROPHILS 67.5 % (42.8-82.8); WHITE BLOOD COUNT 10.7 K/mm3 (4.0-10.0)
[2017-06-02 09:05] LABS: ALBUMIN 2.4 g/dl (3.4-5.0); ALK PHOS 139 U/L (45-117); ANION GAP 8 (8-16); CALCIUM 8.8 mg/dL (8.5-10.1); CO2 32 mmol/L (21-32); CREATININE 1.6 mg/dL (0.7-1.3); GLUCOSE,RANDOM 206 mg/dL (74-106); SGPT/ALT 18 U/L (12-78); TOT PROT 8.6 g/dl (6.4-8.2)
[2017-06-02 09:11] LABS: SGOT/AST 47 U/L (15-37)
[2017-06-02 09:27] LABS: PLATELET COUNT 71 K/MM3 (134-434); PLATELET ESTIMATE DECREASED (NORMAL)
[2017-06-02 09:28] LABS: PLATELET COMMENT2 NO CLOTTING DETECTED
[2017-06-02] MEDS ORDERED: NADOLOL 20 MG TABLET (FP) ONE (10:27)
[2017-06-02] MEDS ORDERED: PT OWN MED DRAWER 7, Y5N ONE (10:27)
[2017-06-02] MEDS: FOLIC ACID 1 MG TABLET (FP) PO SCH (10:31)
[2017-06-02] MEDS: PANTOPRAZOLE 40 MG TABLET (FP) PO SCH (10:32)
[2017-06-02] MEDS: MAGNESIUM OXIDE 400 MG TABLET (FP) PO SCH (10:32)
[2017-06-02] MEDS: SPIRONOLACTONE 25 MG TABLET (FP) PO SCH (10:32)
[2017-06-02] MEDS: THIAMINE HCL 100 MG TABLET (FP) PO SCH (10:32)
[2017-06-02] MEDS: NADOLOL 40 MG TABLET (FP) PO SCH (10:33)
[2017-06-02] MEDS: RIFAXIMIN 550 MG TABLET (UD) PO SCH (10:39)
[2017-06-02] MEDS ORDERED: RIFAXIMIN 550 MG TABLET (UD) PO SCH (10:45)
[2017-06-02] MEDS: TRIAMCINOLONE ACET 0.1% OINT 80 GM TUBE TP SCH (10:49)
[2017-06-02 15:27] VITALS: BP 157/73; PULSE 70; TEMP 97.9
--- NOTE | 2017-06-02 15:40 | PN ---
GI Progress Note Subjective: No acute events States feeling better Anemic however H/H stable Recent EGD w/ banding and previous EGD/Colonoscopy @ [facility] No melens/rectal bleeding No abdominal pain - Objective Vital Signs: Vital Signs Temperature 97.9 F 06/02/17 15:25 Pulse Rate 70 06/02/17 15:25 Respiratory Rate 16 06/02/17 15:25 Blood Pressure 157/73 06/02/17 15:25 O2 Sat by Pulse Oximetry (%) 98 06/01/17 21:00 Constitutional: Calm Eyes: Yes: Sclera Icterus Cardiovascular: Yes: Regular Rate and Rhythm Gastrointestinal Inspection: Yes: Distention ...Auscultate: Yes: Normoactive Bowel Sounds ...Palpate: Yes: Soft. No: Tenderness Edema: Yes (b/l LE pitting edema) Labs: CBC, BMP 06/02/17 07:00 06/02/17 07:00 INR, PTT INR 2.07 (0.82-1.09) H 05/27/17 07:00 Problem List - Problems (1) Alcoholic cirrhosis Assessment/Plan: Continue current medication regimen Needs follow-up W/ Dr. Bhakta and with Dr. Michelle Barajas @ [facility]. Patient and his are aware to call to arrange follow-up Reenforced the need for complete alcohol abstinence No need for continued BID protonix. D/C'd Lactulose 20g daily 2g Sodium controlled diet Q 6 month AFP/Liver US to screen for HCC Code(s): K70.30 - ALCOHOLIC CIRRHOSIS OF LIVER WITHOUT ASCITES Qualifiers: Ascites presence: with ascites Qualified Code(s): K70.31 - Alcoholic cirrhosis of liver with ascites; K70.31 - Alcoholic cirrhosis of liver with ascites; K70.31 - Alcoholic cirrhosis of liver with ascites (2) Anemia Code(s): D64.9 - ANEMIA, UNSPECIFIED Qualifiers: Anemia type: unspecified type Qualified Code(s): D64.9 - Anemia, unspecified; D64.9 - Anemia, unspecified
== END 2017-06-02 15:48 | disposition home or self-care (01) | DRG 433 ==
LOC: JER 22:29 → JERBED 05-26 02:09 → J8W 05-26 03:58
PROVIDERS: ADMIT Family Medicine; ATTEND Family Medicine
PROC: 30233N1 Transfusion of Nonautologous Red Blood Cells into Peripheral Vein, Percutaneous Approach (ICD-10-PCS; 2017-05-26)
PROC: HZ2ZZZZ Detoxification Services for Substance Abuse Treatment (ICD-10-PCS; 2017-05-26)
PROC: 06L38CZ Occlusion of Esophageal Vein with Extraluminal Device, Via Natural or Artificial Opening Endoscopic (ICD-10-PCS; principal; 2017-05-28 09:00)
DX: K70.31 Alcoholic cirrhosis of liver with ascites (principal); F10.230 Alcohol dependence with withdrawal, uncomplicated; I85.00 Esophageal varices without bleeding; D68.9 Coagulation defect, unspecified; L40.8 Other psoriasis; D64.9 Anemia, unspecified; F41.8 Other specified anxiety disorders; Y90.8 Blood alcohol level of 240 mg/100 ml or more; L03.012 Cellulitis of left finger; I10 Essential (primary) hypertension; R62.7 Adult failure to thrive; K29.60 Other gastritis without bleeding; K26.9 Duodenal ulcer, unspecified as acute or chronic, without hemorrhage or perforation; R60.0 Localized edema; L29.9 Pruritus, unspecified
CPT/HCPCS: 36415; 36430; 71010-TC; 76705-TC; 80053; 80307; 82105; 82140; 82272; 82550; 82607; 82728; 82746; 83540; 83550; 83735; 84439; 84443; 84484; 85025; 85027; 85610; 86850; 86900; 86901; 86922; 87045; 87046; 87186; 87324; 87449; 93005; 93010; 99284-25; P9038; P9058

== ENCOUNTER 2017-06-16 19:07 | Inpatient (IN) | payer BC ==
--- NOTE | 2017-06-16 20:16 | PDOC ---
History of Present Illness - General Chief Complaint: Weakness Stated Complaint: WEAKNESS/FATIGUE Time Seen by Provider: 06/16/17 19:31 History Source: Patient, Spouse - History of Present Illness Initial Comments: 06/16/17 20:08 Patient is a 52 yo M with a significant PMHx of alcohol induced liver cirrhosis , alcoholic hepatitis, HTN, ascites, psoriasis, and chronic anemia, presented to the ED with generalized weakness and depression the last 3 weeks. He was on the transplant list a few months ago but is now off the list because he started drinking again in January. He drinks vodka daily and has had poor oral intake. His last detox was 1 year ago. He has been on his bed for the last week with decreased appetite. According to his he has had suicide ideations and has threatened to harm himself with a gun. He does not see a psychiatrist. He also complains of worsening of psoriasis that has spread on UE, LE, and Torso. Patient denies dyspnea, chest pain, dizziness, headaches, abdominal pain, and lightheadedness. Past History - Past Medical History Allergies/Adverse Reactions: Allergies Allergy/AdvReac Type Severity Reaction Status Date / Time No Known Allergies Allergy Verified 06/16/17 19:21 Home Medications: Ambulatory Orders Thiamine HCl [Vitamin B1] 100 mg PO DAILY 12/21/16 Diazepam [Valium] 2 mg PO Q8H PRN #12 tablet MDD 2 06/02/17 Furosemide [Lasix] 80 mg PO BID #120 tab 06/02/17 Hydroxyzine HCl [Atarax -] 25 mg PO Q6H PRN #30 tablet 06/02/17 Magnesium Oxide [Mag-Ox -] 400 mg PO BID tablet 06/02/17 Nadolol 40 mg PO DAILY #30 tab 06/02/17 Oxycodone HCl 5 mg PO Q6H PRN #60 tab MDD 4 06/02/17 Pantoprazole Sodium [Protonix -] 40 mg PO BID #60 tab 06/02/17 Rifaximin [Xifaxan -] 550 mg PO BID #60 tablet 06/02/17 Spironolactone 50 mg PO BID #60 tab 06/02/17 Anemia: Yes COPD: No HTN: Yes Liver Disease: Yes (cirrhosis) - Suicide/Smoking/Psychosocial Hx Smoking History: Unknown if ever smoked Have you smoked in the past 12 months: No Information on smoking cessation initiated: No Hx Alcohol Use: No Drug/Substance Use Hx: No Substance Use Type: Alcohol Hx Substance Use Treatment: No Review of Systems - Review of Systems Able to Perform ROS?: Yes Constitutional: Yes: Weakness. No: Chills, Fever HEENTM: Yes: Nose Bleeding Respiratory: No: Cough, Wheezing Cardiac (ROS): Yes: Edema. No: Chest Pain, Lightheadedness ABD/GI: Yes: Abdominal Distended, Poor Appetite, Poor Fluid Intake Integumentary: Yes: Other (psoriasis) Psychiatric: Yes: Anxiety, Depression, Stressors, Change in Appetite *Physical Exam - Vital Signs Last Vital Signs Temp Pulse Resp BP Pulse Ox 98 F 116 H 18 158/90 98 06/16/17 19:07 06/16/17 19:07 06/16/17 19:07 06/16/17 19:07 06/16/17 19:07 - Physical Exam Comments: 06/16/17 20:22 General: In no acute distress, appears comfortable HEENT: Scleral icterus, EOMI, PERRLA, epistaxis CV: tachy, regular rhythm,no murmurs appreciated, 2+ pulses Lungs: CTA b/l, no rales rhonchi or wheezing Abd: +BS, nontender, distended, dull to percussion, soft, ascites, no hepatomegaly Skin: jaundiced, extensive psoriasis on B/L LE, UE, Torso Ext: 1+ pitting edema b/l LE ED Treatment Course - LABORATORY CBC & Chemistry Diagram: 06/16/17 21:00 06/16/17 21:00 - RADIOLOGY Radiology Studies Ordered: Category Date Time Status CHEST X-RAY PORTABLE* [RAD] Stat Radiology 06/16/17 20:02 Ordered Medical Decision Making - Medical Decision Making 06/16/17 20:29 Patient is a 52 yo M with a significant PMHx of alcohol induced liver cirrhosis , alcoholic hepatitis, HTN, ascites, psoriasis, and chronic anemia, presented to the ED with generalized weakness and depression the last 3 weeks. CBC,CMP Mag, Phos Ammonia CXR PT/INR .5mg Ativan 1-1 observation 06/16/17 22:15 Signed patient out to Dr. Cayetano Raza *DC/Admit/Observation/Transfer Diagnosis at time of Disposition: Depression with anxiety Liver cirrhosis Qualifiers: Hepatic cirrhosis type: alcoholic cirrhosis Ascites presence: with ascites Qualified Code(s): K70.31 - Alcoholic cirrhosis of liver with ascites - Referrals Referrals: Prakash Ashley MD [Primary Care Provider] - - Patient Instructions - Post Discharge Activity
--- NOTE | 2017-06-16 20:17 | PDOC ---
Attending Attestation - Medical Decision Making 06/16/17 21:35 Called Diesel Maintenance Electrician Maddie Noel @21:32pm. Case discussed. <Raudel Crouchew - Last Filed: 06/16/17 21:35> - Resident Resident Name: Brannon Lindo - ED Attending Attestation I have performed the following: I have examined & evaluated the patient, The case was reviewed & discussed with the resident, I agree w/resident's findings & plan, Exceptions are as noted - HPI HPI: 06/17/17 01:41 Patient is a 52 year old male with a significant past medical history of alcoholism, liver cirrhosis, psoriasis, and chronic anemia,who presents to the emergency department with generalized weakness, depression, and decreased appetite that began 4 days ago. reports the patient in that time has become more jaundiced and more altered. She notes that she has caught him from collapsing a few times over the last four days. In addition, patients states patient has experiencing intermittent episodes of depression starting one week ago. She states patient stated today that a gun will solve all of his problems. Patient currently denies any motive to cause self harm with any weapons. Patient is relapsed alcoholic, last detox was one year ago. Patient reports last alcoholic drink was a glass of vodka yesterday evening, but patient 's states patients last alcoholic drink was in fact today. Denies hematuria, hematochezia. chest pain, SOB. Denies fever, chills. Denies nausea, vomiting. Denies any other symptoms. Allergies: None Social history: Former smoker. Hx alcohol dependence (relapsed). No illicit drugs. Surgical history: None PMD: Dr. Prakash Ashley. - Physicial Exam PE: 06/17/17 01:41 GENERAL: Awake, alert, and fully oriented, in no acute distress HEAD: No signs of trauma EYES: PERRLA, EOMI, scleral icterus, conjunctiva clear ENT: Auricles normal inspection, hearing grossly normal, nares patent, oropharynx clear without exudates. Moist mucosa NECK: Normal ROM, supple, no lymphadenopathy, JVD, or masses LUNGS: Breath sounds equal, clear to auscultation bilaterally. No wheezes, and no crackles HEART: +Tachycardic to 110 on exam but regular rhythm, normal S1 and S2, no murmurs, rubs or gallops ABDOMEN: +distended abdomen. +Dull to percussion with bulging flanks. Nontender , normoactive bowel sounds. No guarding, no rebound. EXTREMITIES: Normal range of motion, no edema. No clubbing or cyanosis. No cords , erythema, or tenderness NEUROLOGICAL: Normal speech, cranial nerves intact, negative pronator drift, 5/ 5 strength in all 4 extremities, normal sensation to light touch in all 4 extremities, normal cerebellar exam, normal gait, normal reflexes and tone SKIN: +diffuse lichenified violaceous plaques consistent with known psoriasis - Medical Decision Making 06/17/17 01:41 52-year-old male with a history of liver cirrhosis secondary to alcohol abuse presents with increased weakness, multiple episodes of presyncope, and increased jaundice. Patient is tachycardic to 120 on arrival and hypertensive. Exam consistent with end-stage liver disease. In addition the patient is suicidal. Psychiatry has been contacted, patient will need medical clearance first especially given increasing jaundice and presyncope. -labs -cxr -admit 06/17/17 01:45 Labs remarkable for bilirubin to 6.2. Patient also with leukocytosis to 12. Ammonia is elevated and alcohol levels elevated as well. Presentation consistent with hepatic encephalopathy and liver failure. Psychiatry to see the patient in the morning, the patient remains on one-to-one watch. Case discussed with Dr. Martínez, patient to be admitted to Med/Surg. Case discussed in detail with admitting physician including history, physical exam and ancillary studies. Admitting physician has assumed care for the patient, will follow all pending diagnostics and will complete the evaluation and treatment. <Isabela Alarcon - Last Filed: 06/17/17 03:35> Discharge Disposition <Scott Crouch - Last Filed: 06/16/17 21:35> - Discharge Dispostion Last Admission D/C Date: 06/02/17 Admit: Yes <Isabela Alarcon - Last Filed: 06/17/17 03:35> - Diagnosis Depression with anxiety Liver cirrhosis Qualifiers: Hepatic cirrhosis type: alcoholic cirrhosis Ascites presence: with ascites Qualified Code(s): K70.31 - Alcoholic cirrhosis of liver with ascites - Discharge Dispostion Condition at time of disposition: Stable Heart Score/ECG Review #1 06/17/17 03:31 Twelve-lead EKG was performed and reviewed by me. Sinus tachycardia, rate 118. Normal axis. No ST elevations. [address] depression in leads V5/V6 <Isabela Alarcon - Last Filed: 06/17/17 03:35>
[2017-06-16] MEDS ORDERED: LORazepam 2 MG/ML SDV VIAL ONE (20:21)
[2017-06-16 21:23] LABS: BASOPHIL 0.2 % (0-2.0); EOSINOPHIL 1.8 % (0-4.5); MCH 35.6 pg (25.7-33.7); MCHC 34.6 g/dl (32.0-35.9); MEAN CELL VOLUME 102.8 fl (80-96); MEAN PLT VOLUME 9.7 fl (7.5-11.1); NEUTROPHILS 76.5 % (42.8-82.8); PLATELET COUNT 138 K/MM3 (134-434); RDW 17.1 % (11.9-15.9); WHITE BLOOD COUNT 12.2 K/mm3 (4.0-10.0)
[2017-06-16 21:30] LABS: INR 1.69 (0.82-1.09); PROTHROMBIN TIME (PATIENT) 19.1 SEC (9.98-11.88)
[2017-06-16 21:32] LABS: ACTIVATED PTT 36.9 SECONDS (26.9-34.4)
[2017-06-16] MEDS ORDERED: diazePAM 5 MG TABLET PO ONE (23:44)
[2017-06-16] MEDS ORDERED: diazePAM 5 MG TABLET ONE (23:45)
[2017-06-16 23:48] LABS: ALBUMIN 2.5 g/dl (3.4-5.0); ALK PHOS 103 U/L (45-117); ANION GAP 13 (8-16); BILIRUBIN,TOTAL 6.2 mg/dL (0.2-1.0); CALCIUM 7.6 mg/dL (8.5-10.1); CO2 24 mmol/L (21-32); CREATININE 1.1 mg/dL (0.7-1.3); GLUCOSE,RANDOM 177 mg/dL (74-106); SGOT/AST 74 U/L (15-37); SGPT/ALT 24 U/L (12-78); TOT PROT 8.4 g/dl (6.4-8.2)
[2017-06-17 03:01] LABS: URINE MARIJUANA THC NEGATIVE ng/ml (CUTOFF=50)
[2017-06-17] MEDS ORDERED: chlordiazePOXIDE HCL 25 MG CAPSULE PO ONE (03:51)
[2017-06-17] MEDS ORDERED: chlordiazePOXIDE HCL 25 MG CAPSULE ONE ×2 (04:34→14:12)
[2017-06-17] MEDS: SPIRONOLACTONE 25 MG TABLET (FP) PO SCH ×3 (08:40→21:11)
[2017-06-17] MEDS: NADOLOL 40 MG TABLET (FP) PO SCH ×2 (08:40→14:11)
[2017-06-17] MEDS: RIFAXIMIN 550 MG TABLET (UD) PO SCH ×3 (08:40→22:03)
[2017-06-17] MEDS: PANTOPRAZOLE 40 MG TABLET (FP) PO SCH ×2 (08:40→11:02)
[2017-06-17] MEDS: THIAMINE HCL 100 MG TABLET (FP) PO SCH ×2 (08:40→14:10)
[2017-06-17] MEDS: FUROSEMIDE 40 MG TABLET (FP) PO SCH ×2 (08:40→14:16)
[2017-06-17] MEDS ORDERED: oxyCODONE HCL 5 MG TABLET ONE (08:41)
[2017-06-17] MEDS: oxyCODONE HCL 5 MG TABLET PO PRN ×3 (08:42→22:03)
[2017-06-17] MEDS: hydrOXYzine HCL 25 MG TABLET (FP) PO PRN ×3 (08:42→21:12)
[2017-06-17] MEDS ORDERED: PANTOPRAZOLE 40 MG TABLET (FP) ONE (11:02)
--- NOTE | 2017-06-17 11:07 | EKG ---
Test Reason : Blood Pressure : / mmHG Vent. Rate : 118 BPM Atrial Rate : 118 BPM P-R Int : 148 ms QRS Dur : 088 ms QT Int : 338 ms P-R-T Axes : 067 016 054 degrees QTc Int : 473 ms SINUS TACHYCARDIA NONSPECIFIC ST ABNORMALITY ABNORMAL ECG WHEN COMPARED WITH ECG OF 25-MAY-2017 23:58, NO SIGNIFICANT CHANGE WAS FOUND Confirmed by DAVID RIZZO MD ([id number]) on 06/17/2017 11:07:06 AM Referred By: Confirmed By:DAVID RIZZO MD
--- NOTE | 2017-06-17 12:35 | CON.PSY ---
Psychiatry Consult Chief Complaint: 52 year old man with a history of Alcohol dependence and abuse came to etr intoxicated nad apparanthly voiced vague suicidal thoughts. NO Plans to kill himself or no nself damaging behjaviour at this time > Patient said that he has been upsety since losing his father. Hade been in Rehab and cstarted [id number] again> patient has Cirrhiosis of liver and Psoriasis. Symptoms: reports: Irritability - Previous Psychiatric Treatment Outpatient: None Inpatient: None - Previous Substance Abuse Treatment Inpatient: Within the last 12 months - Reason for Previous Treatment Reason for Previous Treatment: Alcohol Abuse - Current Medications Current Medications: Active Medications Furosemide (Lasix -) 80 mg PO BID@0600,1400 [facility] Last Admin: 06/17/17 08:40 Dose: 80 mg Hydroxyzine HCl (Atarax -) 25 mg PO Q6H PRN PRN Reason: FOR ITCHING Last Admin: 06/17/17 08:42 Dose: 25 mg Nadolol (Corgard -) 40 mg PO DAILY [facility] Last Admin: 06/17/17 08:40 Dose: 40 mg Oxycodone HCl (Roxicodone -) 5 mg PO Q8H PRN PRN Reason: PAIN Last Admin: 06/17/17 08:42 Dose: 5 mg Pantoprazole Sodium (Protonix -) 40 mg PO DAILY [facility] Last Admin: 06/17/17 11:02 Dose: 40 mg Rifaximin (Xifaxan -) 550 mg PO BID [facility] Last Admin: 06/17/17 11:02 Dose: 550 mg Spironolactone (Aldactone -) 50 mg PO BID [facility] Last Admin: 06/17/17 11:03 Dose: 50 mg Thiamine HCl (Vitamin B1 -) 100 mg PO DAILY [facility] Last Admin: 06/17/17 08:40 Dose: 100 mg - Allergies Allergies: Allergies Allergy/AdvReac Type Severity Reaction Status Date / Time No Known Allergies Allergy Verified 06/16/17 19:21 - Current Living Status Usual Living Arrangement: With Spouse - Current Mental Status Evaluation Appearance: Disheveled Attitude: Cooperative - Affect Affect: Constrictive Appropriateness: Appropriate to Content - Mood Mood: Irritable - Speech/Language Expressive: Coherent - Psychomotor Activity Psychomotor Activity: Slowed - Thought Process Thought Process: Intact - Thought Content Hallucinations: Absent Delusions: Absent - Self Perception Self Perception: No Impairment - Cognition Attention: Alert Orientation: Time Memory, Immediate Recall: Intact Memory, Short Term: 2/3 Memory, Remote: Impaired - Concentration Serial Sevens Intact: Yes Simple Calculations Intact: Yes - Abstraction Proverb Interpretation: Intact Judgement: Minimally Impaired - Insight Insight: Intact - Impulse Control Impulse Control: Good Control - Suicidal Ideation Suicidal Ideation: No - Homicidal Ideation Homicidal Ideation: No Assessment/Plan 1) No acute mental illness. 2) patient is not suicidal at this time. 3) Patient is cleared from Psychiatrically for further management of Medical conditions.
--- NOTE | 2017-06-17 12:36 | PN ---
Progress Note (short form) - Note Progress Note: 1) D/C 1:1
--- NOTE | 2017-06-17 13:34 | HP ---
Admitting History and Physical - Admission Chief Complaint: weakness and tired History of Present Illness: Patient is a 52 yo M with a significant PMHx of alcohol induced liver cirrhosis , alcoholic hepatitis, HTN, ascites, psoriasis, and chronic anemia, presented to the ED with generalized weakness and depression the last 3 weeks. He was on the transplant list a few months ago but is now off the list because he started drinking again in January. He drinks vodka daily and has had poor oral intake. His last detox was 1 year ago. He has been on his bed for the last week with decreased appetite. According to his he has had suicide ideations and has threatened to harm himself with a gun. He does not see a psychiatrist. He also complains of worsening of psoriasis that has spread on UE, LE, and Torso. Patient denies dyspnea, chest pain, dizziness, headaches, abdominal pain, and lightheadedness. per patient he has been feeling very weak,nauseous and tired he vomitted once in ER he was seen by psychiatrist no suicidal ideations noted in ER noted to have elevated WBC count and Ammonia level of 43 and high alcohol level History Source: Patient - Past Medical History Cardiovascular: Yes: HTN Gastrointestinal: Yes: Ascites Hepatobiliary: Yes: Cirrhosis (Alcohol induced, decompensated), Other (History of severe alcoholic hepatitis, hepatic encephalopathy) Musculoskeletal: Yes: Other (Cellulitis and tenosynovitis +/- osteomyelitis 3rd/ 4th digit of left hand) Dermatology: Yes: Cellulitis (of LE and of hand), Psoriasis - Smoking History Smoking history: Unknown if ever smoked Have you smoked in the past 12 months: No - Alcohol/Substance Use Hx Alcohol Use: No History of Substance Use: reports: None - Social History ADL: Independent Occupation: disabled History of Recent Travel: No Home Medications - Allergies Allergies/Adverse Reactions: Allergies Allergy/AdvReac Type Severity Reaction Status Date / Time No Known Allergies Allergy Verified 06/16/17 19:21 - Home Medications Home Medications: Ambulatory Orders Thiamine HCl [Vitamin B1] 100 mg PO DAILY 12/21/16 Diazepam [Valium] 2 mg PO Q8H PRN #12 tablet MDD 2 06/02/17 Furosemide [Lasix] 80 mg PO BID #120 tab 06/02/17 Hydroxyzine HCl [Atarax -] 25 mg PO Q6H PRN #30 tablet 06/02/17 Magnesium Oxide [Mag-Ox -] 400 mg PO BID tablet 06/02/17 Nadolol 40 mg PO DAILY #30 tab 06/02/17 Oxycodone HCl 5 mg PO Q6H PRN #60 tab MDD 4 06/02/17 Pantoprazole Sodium [Protonix -] 40 mg PO BID #60 tab 06/02/17 Rifaximin [Xifaxan -] 550 mg PO BID #60 tablet 06/02/17 Spironolactone 50 mg PO BID #60 tab 06/02/17 Review of Systems - Review of Systems Constitutional: reports: Weakness, Other (tired) Physical Examination Vital Signs: Vital Signs Temperature 98.7 F 06/17/17 05:56 Pulse Rate 97 H 06/17/17 05:56 Respiratory Rate 20 06/17/17 05:56 Blood Pressure 136/65 06/17/17 05:56 O2 Sat by Pulse Oximetry (%) 99 06/17/17 05:56 Eyes: Yes: Sclera Icterus Cardiovascular: Yes: Regular Rate and Rhythm, S1, S2 Respiratory: Yes: CTA Bilaterally Gastrointestinal: Yes: Soft, Distention Extremities: Yes: Other (chronic changes) Edema: Yes Integumentary: Yes: Rash (psoaritic rash on Upper extremities) Neurological: Yes: Alert, Oriented (to name) Labs: CBC, BMP 06/16/17 21:00 06/16/17 23:13 Problem List - Problems (1) Liver cirrhosis Assessment/Plan: trend ammonia lactulose and rifaximin Code(s): K74.60 - UNSPECIFIED CIRRHOSIS OF LIVER Qualifiers: Hepatic cirrhosis type: alcoholic cirrhosis Ascites presence: with ascites Qualified Code(s): K70.31 - Alcoholic cirrhosis of liver with ascites (2) Alcohol dependence with uncomplicated withdrawal Assessment/Plan: librium folate thiamine detox eval ativan Code(s): F10.230 - ALCOHOL DEPENDENCE WITH WITHDRAWAL, UNCOMPLICATED (3) Leukocytosis Assessment/Plan: send UA and urine culture elevated WBC count unclear eitology no fever for now Code(s): D72.829 - ELEVATED WHITE BLOOD CELL COUNT, UNSPECIFIED Qualifiers: Leukocytosis type: unspecified Qualified Code(s): D72.829 - Elevated white blood cell count, unspecified (4) Leg edema Assessment/Plan: aldactone Code(s): R60.0 - LOCALIZED EDEMA
--- NOTE | 2017-06-17 13:34 | CON.GI ---
Consult Consult Specialty:: GI: Dr. Shell for Dr. Bhakta Referred by:: Dr. Martínez Reason for Consultation:: Cirrhosis - History of Present Illness Chief Complaint: Depression, suicidal ideation, alcohol intoxication History of Present Illness: 52M admitted for evaluation of worsening depression and per his suicidal ideations at home. He was recently admitted to [facility] for evaluation of weakness / failure to thrive. 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 He underwent repeat EGD at that time that led to banding of varices. It was also noted that he had begun drinking alcohol again and failed to follow-up with his transplant hydrography teacher Dr. Barajas on several occasions. has followed with Dr. Bhakta. He underwent EGD and colonoscopy at [facility] and had variceal banding performed 12/16 and failed to follow-up for surveillance enoscopy. As above he has missed several appointments with Dr. Barajas and has again been drinking alcohol since at least January. On his last admission his was thoroughly counseled about the problems with continued alcohol consumption including continued liver decompensation and . He was seen by psychiatry at that time and while arrangements for outpatient care and rehab were discussed and put in place, it appears as though Mr. Gottlieb has been non compliant. His blood alcohol level this admission was 186 in the ED. His tells me that he has been drinking vodka regularly and hiding it from her. Currently, he denies shortness of breath, abdominal pain, vomiting. he has had a cough and his daughter has been experiencing URI symptoms. He has also noted a worsening of his psoriasis. He has been drinking alcohol regulalry but describes diminished appetite. The has been no change in behavior / mental status at home. His is present at bedside. - History Source History Provided By: Patient, Family Member, Medical Record Limitations to Obtaining History: No Limitations - Past Medical History Cardio/Vascular: Yes: HTN Gastrointestinal: Yes: Ascites Hepatobiliary: Yes: Cirrhosis (Alcohol induced, decompensated), Other (History of severe alcoholic hepatitis, hepatic encephalopathy) Musculoskeletal: Yes: Other (Cellulitis and tenosynovitis +/- osteomyelitis 3rd/ 4th digit of left hand) Dermatology: Yes: Cellulitis (of LE and of hand), Psoriasis - Alcohol/Substance Use Hx Alcohol Use: No History of Substance Use: reports: None - Smoking History Smoking history: Unknown if ever smoked Have you smoked in the past 12 months: No - Social History Usual Living Arrangement: With Spouse ADL: Independent Occupation: disabled History of Recent Travel: No Home Medications - Allergies Allergies/Adverse Reactions: Allergies Allergy/AdvReac Type Severity Reaction Status Date / Time No Known Allergies Allergy Verified 06/16/17 19:21 - Home Medications Home Medications: Ambulatory Orders Thiamine HCl [Vitamin B1] 100 mg PO DAILY 12/21/16 Diazepam [Valium] 2 mg PO Q8H PRN #12 tablet MDD 2 06/02/17 Furosemide [Lasix] 80 mg PO BID #120 tab 06/02/17 Hydroxyzine HCl [Atarax -] 25 mg PO Q6H PRN #30 tablet 06/02/17 Magnesium Oxide [Mag-Ox -] 400 mg PO BID tablet 06/02/17 Nadolol 40 mg PO DAILY #30 tab 06/02/17 Oxycodone HCl 5 mg PO Q6H PRN #60 tab MDD 4 06/02/17 Pantoprazole Sodium [Protonix -] 40 mg PO BID #60 tab 06/02/17 Rifaximin [Xifaxan -] 550 mg PO BID #60 tablet 06/02/17 Spironolactone 50 mg PO BID #60 tab 06/02/17 Family Disease History - Family Disease History Other Family History: Non-contribuatory Review of Systems - Review of Systems Constitutional: reports: Malaise, Weakness. denies: Chills, Fever Cardiovascular: denies: Chest Pain, Shortness of Breath Respiratory: reports: Cough Gastrointestinal: denies: Abdominal Pain, Bloating, Constipation, Diarrhea, Rectal Bleeding Physical Exam-GI Vital Signs: Vital Signs Temperature 99.3 F Oral 06/17/17 1045 Pulse Rate 100 06/17/17 1045 Respiratory Rate 20 06/17/17 1045 Blood Pressure 151/77 06/17/17 05:56 O2 Sat by Pulse Oximetry (%) 99% RA 06/17/17 05:56 Constitutional: Yes: Calm Eyes: Yes: Sclera Icterus Cardiovascular: Yes: Tachycardia Respiratory: Yes: CTA Bilaterally Gastrointestinal Inspection: No: Scars ...Auscultate: Yes: Normoactive Bowel Sounds ...Palpate: No: Hepatomegaly, Soft, Splenomegaly, Tenderness ...Percussion: No: Fluid Wave, Tympanitic Edema: Yes Edema: LLE: 1+, RLE: 1+ Neurological: Yes: Alert, Oriented (x person, place and time), Ataxia. No: [employer] Labs: CBC, BMP 06/16/17 21:00 06/16/17 23:13 INR, PTT INR 1.69 (0.82-1.09) H 06/16/17 21:00 Laboratory Tests 06/17/17 00:34 Alcohol, Quantitative 186.5 H* Hepatic Panel Total Bilirubin 6.2 mg/dL (0.2-1.0) H D 06/16/17 23:13 AST 74 U/L (15-37) H D 06/16/17 23:13 ALT 24 U/L (12-78) D 06/16/17 23:13 Alkaline Phosphatase 103 U/L (45-117) D 06/16/17 23:13 Albumin 2.5 g/dl (3.4-5.0) L 06/16/17 23:13 Assessment/Plan Decompensated alcohol induced cirrhosis: Mr. Gottlieb continued to drink alcohol and has not kept up with continued putpatient care for his depression / alcohol dependence. he is aware of the consequences of continued alcohol use including delisting from liver transplant list and through complications / expedited liver decompensation and . No clinical evidence of hepatic encephalopathy. he did have a blood alcohol and has a history of alcohol withdrawal Advise: 2g Low Na diet Continue rifaximin 550mg PO BID Lactulose 20g daily as tolerated Alcohol withdrawal precautions. Psych evaluation Thiamine/folate supplementation Advised Mr. Gottlieb's nurse that his temp on my exam is 99.3 to let PMD know. Evaluation of rash / psoriasis per PMD. No acute GI interventions at this time Ordered CBC/Hepatic panel/BMP/Mg/Phos for today
[2017-06-17] MEDS: chlordiazePOXIDE HCL 25 MG CAPSULE PO SCH ×3 (14:12→22:05)
[2017-06-17] MEDS ORDERED: FOLIC ACID 1 MG TABLET (FP) ONE (14:12)
[2017-06-17] MEDS ORDERED: FUROSEMIDE 40 MG TABLET (FP) ONE (14:15)
[2017-06-17] MEDS: FOLIC ACID 1 MG TABLET (FP) PO SCH (14:16)
[2017-06-17 17:31] LABS: BASOPHIL 0.4 % (0-2.0); EOSINOPHIL 1.2 % (0-4.5); MCH 35.6 pg (25.7-33.7); MCHC 34.9 g/dl (32.0-35.9); NEUTROPHILS 79.4 % (42.8-82.8); RDW 16.7 % (11.9-15.9)
[2017-06-17 17:59] LABS: ALBUMIN 2.5 g/dl (3.4-5.0); ANION GAP 14 (8-16); BILIRUBIN,TOTAL 10.3 mg/dL (0.2-1.0); CALCIUM 7.8 mg/dL (8.5-10.1); CO2 24 mmol/L (21-32); CREATININE 1.5 mg/dL (0.7-1.3); GLUCOSE,RANDOM 156 mg/dL (74-106); MAGNESIUM 1.2 mg/dL (1.8-2.4); PHOSPHOROUS 2.9 mg/dL (2.5-4.9); SGOT/AST 70 U/L (15-37); SGPT/ALT 25 U/L (12-78); TOT PROT 8.4 g/dl (6.4-8.2)
[2017-06-17 18:00] LABS: ALK PHOS 108 U/L (45-117)
[2017-06-17 19:09] LABS: MEAN PLT VOLUME 8.4 fl (7.5-11.1); PLATELET COUNT 61 K/MM3 (134-434)
--- NOTE | 2017-06-17 19:41 | CONSULT ---
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 Recently drinking again and admitted with LBP radiating into the Right leg with walking and a BAL of 185.6 mg%. Elevated transaminases, alk phos, Bili, PTT, INR and ammonia. Low Mg++=1.32 mg%, Ca++ and H/H=8.04/27 on admission and 03/23 this AM. recent admission for GI bleed requiring transfusio. On Nadolol, pantroprazole, spironolactone and furosamide. MIKAL: Mild jaundice. Neck supple. No external head trauma. NEURO: Awake, alert, confused. Ox [facility]. 2016. CN II-XII normal without nystagmus. Motor: No drift or asterixis. Depressed reflexes and absent AJ's. Toes downgoing. No FTN dystaxia Romberg neg. Gait: Sl. wide-based. Stable. IMP: Moderate B/L cerebral dysfunction c/w Hepatic (Hyperammonemic) encephalopathy. Probably exacerbated by active GI bleeding. Lumbosacral radiculopathy SUGGEST: Agree with librium detox. Give thiamine parenterally. Supplement Mg++ and follow. Consider Heme consult and Rx of coagulopathy. Lactulose and antibiotics (will not be as effective with ongoing GI bleeding). Thank you very much, Ector Lechuga MD
[2017-06-17] MEDS ORDERED: PT OWN MED DRAWER 7, Y5N ONE (20:03)
[2017-06-17] MEDS: THIAMINE HCL 200 MG/2 ML VIAL IVPB SCH (20:23)
[2017-06-17] MEDS: diazePAM 2 MG TABLET PO PRN (21:12)
[2017-06-17] MEDS ORDERED: MAGNESIUM SULF 50% (8.12 MEQ/2 ML-1 GM VIAL) IVPB ONE (21:45)
[2017-06-17] MEDS: LACTULOSE 20 GM/30 ML UDC (FOR ORAL USE ONLY) PO SCH (22:03)
[2017-06-17] MEDS: TRIAMCINOLONE ACET 0.1% OINT 15 GM TUBE TP SCH (22:08)
[2017-06-18] MEDS: THIAMINE HCL 200 MG/2 ML VIAL IVPB SCH ×2 (01:40→09:49)
[2017-06-18] MEDS: hydrOXYzine HCL 25 MG TABLET (FP) PO PRN ×2 (03:10→14:31)
[2017-06-18 03:45] LABS: URINE APPEARANCE SLCLOUDY; URINE BILIRUBIN NEGATIVE (NEGATIVE); URINE BLOOD 3+ (NEGATIVE); URINE COLOR AMBER; URINE GLUCOSE (UA) NEGATIVE (NEGATIVE); URINE KETONE NEGATIVE (NEGATIVE); URINE NITRITE NEGATIVE (NEGATIVE); URINE PROTEIN NEGATIVE (NEGATIVE); URINE UROBILINOGEN NEGATIVE mg/dL (0.2-1.0)
[2017-06-18 03:57] LABS: URINE BACTERIA RARE /hpf (NONE SEEN); URINE HYALINE CAST 3 /lpf; URINE MUCUS RARE; URINE RBC 25; URINE WBC 4
[2017-06-18] MEDS: chlordiazePOXIDE HCL 25 MG CAPSULE PO SCH ×2 (05:12→11:55)
[2017-06-18] MEDS: FUROSEMIDE 40 MG TABLET (FP) PO SCH (05:12)
[2017-06-18] MEDS: oxyCODONE HCL 5 MG TABLET PO PRN ×3 (05:13→20:25)
[2017-06-18] MEDS: diazePAM 2 MG TABLET PO PRN (06:08)
[2017-06-18 07:49] LABS: BASOPHIL 0.6 % (0-2.0); EOSINOPHIL 2.1 % (0-4.5); MCH 35.7 pg (25.7-33.7); MCHC 34.6 g/dl (32.0-35.9); MEAN PLT VOLUME 8.3 fl (7.5-11.1); NEUTROPHILS 73.9 % (42.8-82.8); PLATELET COUNT 54 K/MM3 (134-434); RDW 16.4 % (11.9-15.9); WHITE BLOOD COUNT 11.5 K/mm3 (4.0-10.0)
[2017-06-18 08:36] LABS: ALBUMIN 2.5 g/dl (3.4-5.0); ALK PHOS 105 U/L (45-117); ANION GAP 12 (8-16); BILIRUBIN,TOTAL 9.6 mg/dL (0.2-1.0); CALCIUM 7.8 mg/dL (8.5-10.1); CO2 25 mmol/L (21-32); CREATININE 1.9 mg/dL (0.7-1.3); GLUCOSE,RANDOM 130 mg/dL (74-106); SGOT/AST 58 U/L (15-37); SGPT/ALT 22 U/L (12-78); TOT PROT 8.1 g/dl (6.4-8.2)
[2017-06-18 08:38] LABS: MAGNESIUM 1.7 mg/dL (1.8-2.4)
[2017-06-18 09:39] LABS: URINE LEUK ESTERASE 1+ (NEGATIVE)
[2017-06-18] MEDS ORDERED: NADOLOL 20 MG TABLET (FP) ONE (09:39)
[2017-06-18] MEDS ORDERED: PT OWN MED DRAWER 7, Y5N ONE (09:40)
[2017-06-18] MEDS: FOLIC ACID 1 MG TABLET (FP) PO SCH (09:48)
[2017-06-18] MEDS: NADOLOL 40 MG TABLET (FP) PO SCH (09:48)
[2017-06-18] MEDS: LACTULOSE 20 GM/30 ML UDC (FOR ORAL USE ONLY) PO SCH (09:48)
[2017-06-18] MEDS: RIFAXIMIN 550 MG TABLET (UD) PO SCH ×2 (09:49→21:08)
[2017-06-18] MEDS: SPIRONOLACTONE 25 MG TABLET (FP) PO SCH (09:49)
[2017-06-18] MEDS: PANTOPRAZOLE 40 MG TABLET (FP) PO SCH (09:49)
--- NOTE | 2017-06-18 10:01 | CONSULT ---
Consult Detox [facility] Reason for Current Admission/Consult: alcohol use disorder, assess for detox regimen Referred by:: dr. Martínez - History History of Present Illness: 52 yo M known to me from last admission with h/o chronic alcoholism, was detopxed last admission but relapsed when he went home denies daily use but elevate blood alcohol level on day of admission, history not reliable PMHx alcoholic cirrhosis, alcoholic hepatitis, HTN, ascites, psoriasis, anemia, presented to the ED yesterday with generalized weakness and depression the last 3 weeks. He was on the transplant list a few months ago but is now off the list because he started drinking again in January. According to his he has had suicidal ideations as per medical record and has threatened to harm himself with a gun, he was seen by psychiatrist no suicidal ideations noted. c/o abdo pain with elevated lipase and ammonia Home Medication List Medication Instructions Recorded Confirmed Type Thiamine HCl [Vitamin B1] 100 mg PO DAILY 12/21/16 06/16/17 History Active Medications Generic Name Dose Route Start Last Admin Trade Name Veronica PRN Reason Stop Dose Admin Diazepam 2 mg 06/17/17 16:03 06/18/17 06:08 Valium - PO 2 mg Q8H PRN Administration ANXIETY Diazepam 5 mg 06/18/17 14:00 Valium - PO 06/19/17 22:01 TID VANITA Diazepam 5 mg 06/20/17 10:00 Valium - PO 06/21/17 22:01 BID VANITA Diazepam 5 mg 06/22/17 10:00 Valium - PO 06/22/17 10:01 DAILY VANITA Diazepam 10 mg 06/18/17 11:22 Valium - PO 06/21/17 11:21 Q4H PRN WITHDRAWAL(CONT SUBST) Folic Acid 1 mg 06/17/17 13:45 06/18/17 09:48 Folic Acid - PO 1 mg DAILY VANITA Administration Furosemide 80 mg 06/17/17 06:00 06/18/17 05:12 Lasix - PO 80 mg BID@0600,1400 VANITA Administration Hydroxyzine HCl 25 mg 06/17/17 05:53 06/18/17 03:10 Atarax - PO 25 mg Q6H PRN Administration FOR ITCHING Lactulose 20 gm 06/17/17 21:45 06/18/17 09:48 Cephulac (Oral Use) PO 20 gm DAILY VANITA Administration Magnesium Oxide 400 mg 06/18/17 22:00 Mag-Ox - PO BID VANITA Multivitamins/Minerals/Vitamin C 1 tab 06/19/17 10:00 Tab-A-Vit - PO DAILY VANITA Nadolol 40 mg 06/17/17 06:00 06/18/17 09:48 Corgard - PO 40 mg DAILY VANITA Administration Oxycodone HCl 5 mg 06/17/17 16:02 06/18/17 05:13 Roxicodone - PO 5 mg Q6H PRN Administration PAIN Pantoprazole Sodium 40 mg 06/17/17 06:00 06/18/17 09:49 Protonix - PO 40 mg DAILY VANITA Administration Rifaximin 550 mg 06/17/17 06:00 06/18/17 09:49 Xifaxan - PO 550 mg BID VANITA Administration Spironolactone 50 mg 06/17/17 06:00 06/18/17 09:49 Aldactone - PO 50 mg BID VANITA Administration Thiamine HCl 100 mg 06/19/17 10:00 Vitamin B1 - PO DAILY VANITA Triamcinolone Acetonide 1 applic 06/18/17 10:00 06/17/17 22:08 Aristocort 0.1% Ointment - TP 1 applic BID VANITA Administration Vital Signs - 24 hr 06/17/17 06/17/17 06/17/17 15:30 17:55 21:00 Temperature 98.1 F 98.3 F Pulse Rate 85 86 Respiratory 18 18 18 Rate Blood Pressure 152/76 134/68 O2 Sat by Pulse 100 100 Oximetry (%) 06/17/17 06/18/17 21:11 05:31 Temperature 98.2 F 98.1 F Pulse Rate 80 77 Respiratory 18 18 Rate Blood Pressure 124/47 115/60 O2 Sat by Pulse Oximetry (%) Laboratory Tests 06/16/17 06/16/17 06/16/17 21:00 21:00 21:00 WBC 12.2 H RBC 2.49 L Hgb 8.9 L Hct 25.6 L MCV 102.8 H MCH 35.6 H MCHC 34.6 RDW 17.1 H Plt Count 138 D MPV 9.7 Neutrophils % 76.5 Lymphocytes % 13.6 Monocytes % 7.9 Eosinophils % 1.8 Basophils % 0.2 ESR PT with INR 19.10 H INR 1.69 H PTT (Actin FS) 36.9 H Sodium Cancelled Potassium Cancelled Chloride Cancelled Carbon Dioxide Cancelled Anion Gap Cancelled BUN Cancelled Creatinine Cancelled Creat Clearance w eGFR Cancelled Random Glucose Cancelled Calcium Cancelled Phosphorus Cancelled Magnesium Cancelled Total Bilirubin Cancelled Direct Bilirubin AST Cancelled ALT Cancelled Alkaline Phosphatase Cancelled Ammonia Total Protein Cancelled Albumin Cancelled Total Amylase Lipase Urine Color Urine Appearance Urine pH Ur Specific [place] Urine Protein Urine Glucose (UA) Urine Ketones Urine Blood Urine Nitrite Urine Bilirubin Urine Urobilinogen Ur Leukocyte Esterase Urine WBC (Auto) Urine RBC (Auto) Urine RBC Urine Bacteria Hyaline Casts Urine Mucus Opiates Screen Methadone Screen Barbiturate Screen Phencyclidine Screen Ur Amphetamines Screen MDMA (Ecstasy) Screen Benzodiazepines Screen Cocaine Screen U Marijuana (THC) Screen Alcohol, Quantitative Blood Type Antibody Screen Spec Expiration Date 06/16/17 06/16/17 06/16/17 21:00 21:00 23:13 WBC RBC Hgb Hct MCV MCH MCHC RDW Plt Count MPV Neutrophils % Lymphocytes % Monocytes % Eosinophils % Basophils % ESR PT with INR INR PTT (Actin FS) Sodium 134 L Potassium 3.6 D Chloride 97 L Carbon Dioxide 24 D Anion Gap 13 BUN 10 D Creatinine 1.1 D Creat Clearance w eGFR > 60 Random Glucose 177 H Calcium 7.6 L Phosphorus Magnesium Total Bilirubin 6.2 H D Direct Bilirubin AST 74 H D ALT 24 D Alkaline Phosphatase 103 D Ammonia 43.42 H Total Protein 8.4 H Albumin 2.5 L Total Amylase Lipase Urine Color Urine Appearance Urine pH Ur Specific [place] Urine Protein Urine Glucose (UA) Urine Ketones Urine Blood Urine Nitrite Urine Bilirubin Urine Urobilinogen Ur Leukocyte Esterase Urine WBC (Auto) Urine RBC (Auto) Urine RBC Urine Bacteria Hyaline Casts Urine Mucus Opiates Screen Methadone Screen Barbiturate Screen Phencyclidine Screen Ur Amphetamines Screen MDMA (Ecstasy) Screen Benzodiazepines Screen Cocaine Screen U Marijuana (THC) Screen Alcohol, Quantitative Blood Type Cancelled Antibody Screen Cancelled Spec Expiration Date Cancelled 06/17/17 06/17/17 06/17/17 00:34 02:36 16:10 WBC 12.0 H RBC 2.24 L Hgb 8.0 L D Hct 22.8 L MCV 102.0 H MCH 35.6 H MCHC 34.9 RDW 16.7 H Plt Count 61 L D MPV 8.4 D Neutrophils % 79.4 Lymphocytes % 12.7 Monocytes % 6.3 Eosinophils % 1.2 Basophils % 0.4 ESR PT with INR INR PTT (Actin FS) Sodium Potassium Chloride Carbon Dioxide Anion Gap BUN Creatinine Creat Clearance w eGFR Random Glucose Calcium Phosphorus Magnesium Total Bilirubin Direct Bilirubin AST ALT Alkaline Phosphatase Ammonia Total Protein Albumin Total Amylase Lipase Urine Color Urine Appearance Urine pH Ur Specific [place] Urine Protein Urine Glucose (UA) Urine Ketones Urine Blood Urine Nitrite Urine Bilirubin Urine Urobilinogen Ur Leukocyte Esterase Urine WBC (Auto) Urine RBC (Auto) Urine RBC Urine Bacteria Hyaline Casts Urine Mucus Opiates Screen Negative Methadone Screen Negative Barbiturate Screen Negative Phencyclidine Screen Negative Ur Amphetamines Screen Negative MDMA (Ecstasy) Screen Negative Benzodiazepines Screen Positive Cocaine Screen Negative U Marijuana (THC) Screen Negative Alcohol, Quantitative 186.5 H* Blood Type Antibody Screen Spec Expiration Date 06/17/17 06/17/17 06/18/17 16:10 16:10 03:30 WBC RBC Hgb Hct MCV MCH MCHC RDW Plt Count MPV Neutrophils % Lymphocytes % Monocytes % Eosinophils % Basophils % ESR PT with INR INR PTT (Actin FS) Sodium 132 L Potassium 4.1 Chloride 94 L Carbon Dioxide 24 Anion Gap 14 BUN 17 D Creatinine 1.5 H D Creat Clearance w eGFR 48.77 Random Glucose 156 H Calcium 7.8 L Phosphorus 2.9 Magnesium 1.2 L Total Bilirubin 10.3 H D Direct Bilirubin 3.0 H D AST 70 H ALT 25 Alkaline Phosphatase 108 Ammonia Total Protein 8.4 H Albumin 2.5 L Total Amylase Lipase 1176 H Urine Color Elly Urine Appearance Slcloudy Urine pH 5.0 Ur Specific [place] 1.006 Urine Protein Negative Urine Glucose (UA) Negative Urine Ketones Negative Urine Blood 3+ H Urine Nitrite Negative Urine Bilirubin Negative Urine Urobilinogen Negative Ur Leukocyte Esterase 1+ H Urine WBC (Auto) 4 Urine RBC (Auto) 25 Urine RBC No Result Required. Urine Bacteria Rare Hyaline Casts 3 Urine Mucus Rare Opiates Screen Methadone Screen Barbiturate Screen Phencyclidine Screen Ur Amphetamines Screen MDMA (Ecstasy) Screen Benzodiazepines Screen Cocaine Screen U Marijuana (THC) Screen Alcohol, Quantitative Blood Type Antibody Screen Spec Expiration Date 06/18/17 06/18/17 06/18/17 06:30 06:30 06:30 WBC 11.5 H RBC 2.20 L Hgb 7.8 L Hct 22.7 L MCV 103.0 H MCH 35.7 H MCHC 34.6 RDW 16.4 H Plt Count 54 L MPV 8.3 Neutrophils % 73.9 Lymphocytes % 15.3 D Monocytes % 8.1 Eosinophils % 2.1 Basophils % 0.6 ESR PT with INR INR PTT (Actin FS) Sodium 129 L Potassium 4.0 Chloride 92 L Carbon Dioxide 25 Anion Gap 12 BUN 26 H D Creatinine 1.9 H D Creat Clearance w eGFR 37.13 Random Glucose 130 H Calcium 7.8 L Phosphorus Magnesium Total Bilirubin 9.6 H Direct Bilirubin AST 58 H ALT 22 Alkaline Phosphatase 105 Ammonia 54.61 H Total Protein 8.1 Albumin 2.5 L Total Amylase Lipase Urine Color Urine Appearance Urine pH Ur Specific [place] Urine Protein Urine Glucose (UA) Urine Ketones Urine Blood Urine Nitrite Urine Bilirubin Urine Urobilinogen Ur Leukocyte Esterase Urine WBC (Auto) Urine RBC (Auto) Urine RBC Urine Bacteria Hyaline Casts Urine Mucus Opiates Screen Methadone Screen Barbiturate Screen Phencyclidine Screen Ur Amphetamines Screen MDMA (Ecstasy) Screen Benzodiazepines Screen Cocaine Screen U Marijuana (THC) Screen Alcohol, Quantitative Blood Type Antibody Screen Spec Expiration Date 06/18/17 06/18/17 06:30 06:30 WBC RBC Hgb Hct MCV MCH MCHC RDW Plt Count MPV Neutrophils % Lymphocytes % Monocytes % Eosinophils % Basophils % ESR 60 H PT with INR INR PTT (Actin FS) Sodium Potassium Chloride Carbon Dioxide Anion Gap BUN Creatinine Creat Clearance w eGFR Random Glucose Calcium Phosphorus Magnesium 1.7 L D Total Bilirubin Direct Bilirubin AST ALT Alkaline Phosphatase Ammonia Total Protein Albumin Total Amylase 156 H Lipase Urine Color Urine Appearance Urine pH Ur Specific [place] Urine Protein Urine Glucose (UA) Urine Ketones Urine Blood Urine Nitrite Urine Bilirubin Urine Urobilinogen Ur Leukocyte Esterase Urine WBC (Auto) Urine RBC (Auto) Urine RBC Urine Bacteria Hyaline Casts Urine Mucus Opiates Screen Methadone Screen Barbiturate Screen Phencyclidine Screen Ur Amphetamines Screen MDMA (Ecstasy) Screen Benzodiazepines Screen Cocaine Screen U Marijuana (THC) Screen Alcohol, Quantitative Blood Type Antibody Screen Spec Expiration Date - History Source History Provided By: Patient, Medical Record Limitations to Obtaining History: Poor Historian - Alcohol/Substance Use Hx Alcohol Use: Yes Hx Substance Use: No Hx Substance Use Treatment: Yes (detoxed last hospital admission) - Current Drug/Alcohol Use Alcohol Route: Oral Frequency: Daily Amount used: vodka 4-5 drinks reported? Age of first use: 17 Date of Last Use: 06/17/17 - Past Medical History Cardio/Vascular: Yes: HTN Gastrointestinal: Yes: Ascites Hepatobiliary: Yes: Cirrhosis (Alcohol induced, decompensated), Other (History of severe alcoholic hepatitis, hepatic encephalopathy) Musculoskeletal: Yes: Other (Cellulitis and tenosynovitis +/- osteomyelitis 3rd/ 4th digit of left hand) Dermatology: Yes: Cellulitis (of LE and of hand), Psoriasis - Significant Medical Findings: poor hisotrian, somewhat confused, sitting up in bed, appears comfortable receiving libirum valium and oxycodone CIWA Score - CIWA Score Nausea/Vomitin-Mild Nausea/No Vomiting Muscle Tremors: 1-None Visible, but [place] Anxiety: 1-Mildly Anxious Agitation: 1-Slight > Activity Paroxysmal Sweats: 1-Minimal Palms Moist Orientation: 1-Uncertain about Date Tacttile Disturbances: 1-Very Mild Itch/Numbness Auditory Disturbances: 0-None Visual Disturbances: 0-None Headache: 1-Very Mild CIWA-Ar Total Score: 8 Assessment Plan - Diagnosis (1) Depression with anxiety Status: Acute (2) Liver cirrhosis Status: Acute Qualifiers: Hepatic cirrhosis type: alcoholic cirrhosis Ascites presence: with ascites Qualified Code(s): K70.31 - Alcoholic cirrhosis of liver with ascites (3) Alcohol dependence with uncomplicated withdrawal Status: Acute (4) Anemia Status: Acute Qualifiers: Anemia type: unspecified type Qualified Code(s): D64.9 - Anemia, unspecified (5) Hypomagnesemia Status: Acute (6) Pruritic condition Status: Acute (7) Psoriasis Status: Acute (8) Pancreatitis Status: Acute - Plan Plan: 52 yo m with relapse to daily alcohol use and now presenting to ED with what appears to be alcoholic hepatitis and pancreatitis, worsening liver failure. STart valium detox as this is the preferred detox medication for this patient d/ c libirum. MVI, fluids as tolerated, pain relief, oxycodone maynot last 6 hours , he may need a higher dose, supplement Mg, thimaine, k as needed. Carla is not well enough at this time to participate in inpatien rehab. will follow during hosptilization, intensive outpatient treatment if he is well enough at [facility]. Consider [facility] if he is able to participate in rehab acitiveties. justin Martin MD [phone] - Medication Detox Regimen/Protocol: Valium
--- NOTE | 2017-06-18 10:47 | PN ---
Progress Note (short form) - Note Progress Note: Noted yesterday's bilirubin: 10. 3 direct. Mr. Gottlieb does have advanced liver disease but consider heme eval for eval of disproportionate indirect hyperbilirubinemia
--- NOTE | 2017-06-18 11:40 | PN ---
Progress Note, Physician Chief Complaint: patient awake alert feeling better today - Current Medication List Current Medications: Active Medications Diazepam (Valium -) 5 mg PO TID [facility] Stop: 06/19/17 22:01 Diazepam (Valium -) 5 mg PO BID [facility] Stop: 06/21/17 22:01 Diazepam (Valium -) 5 mg PO DAILY [facility] Stop: 06/22/17 10:01 Diazepam (Valium -) 10 mg PO Q4H PRN PRN Reason: WITHDRAWAL(CONT SUBST) Stop: 06/21/17 11:21 Folic Acid (Folic Acid -) 1 mg PO DAILY [facility] Last Admin: 06/18/17 09:48 Dose: 1 mg Furosemide (Lasix -) 40 mg PO BID@0600,1400 [facility] Hydroxyzine HCl (Atarax -) 25 mg PO Q6H PRN PRN Reason: FOR ITCHING Last Admin: 06/18/17 03:10 Dose: 25 mg Lactulose (Cephulac (Oral Use)) 20 gm PO DAILY [facility] Last Admin: 06/18/17 09:48 Dose: 20 gm Magnesium Oxide (Mag-Ox -) 400 mg PO BID [facility] Magnesium Sulfate (Magnesium Sulfate) 1 gm IVPB ONCE ONE Stop: 06/18/17 11:30 Multivitamins/Minerals/Vitamin C (Tab-A-Vit -) 1 tab PO DAILY [facility] Nadolol (Corgard -) 40 mg PO DAILY [facility] Last Admin: 06/18/17 09:48 Dose: 40 mg Oxycodone HCl (Roxicodone -) 5 mg PO Q6H PRN PRN Reason: PAIN Last Admin: 06/18/17 05:13 Dose: 5 mg Pantoprazole Sodium (Protonix -) 40 mg PO DAILY [facility] Last Admin: 06/18/17 09:49 Dose: 40 mg Rifaximin (Xifaxan -) 550 mg PO BID [facility] Last Admin: 06/18/17 09:49 Dose: 550 mg Spironolactone (Aldactone -) 50 mg PO BID [facility] Last Admin: 06/18/17 09:49 Dose: 50 mg Thiamine HCl (Vitamin B1 Injection -) 200 mg IVPB DAILY [facility] Triamcinolone Acetonide (Aristocort 0.1% Ointment -) 1 applic TP BID [facility] Last Admin: 06/17/17 22:08 Dose: 1 applic - Objective Vital Signs: Vital Signs Temperature 98.1 F 06/18/17 05:31 Pulse Rate 77 06/18/17 05:31 Respiratory Rate 18 06/18/17 05:31 Blood Pressure 115/60 06/18/17 05:31 O2 Sat by Pulse Oximetry (%) 100 06/17/17 21:00 Constitutional: Yes: Calm Neck: Yes: Trachea Midline Cardiovascular: Yes: Regular Rate and Rhythm, S1, S2 Respiratory: Yes: CTA Bilaterally Gastrointestinal: Yes: Soft, Distention Extremities: Yes: Other (chronic changes) Edema: Yes Integumentary: Yes: Other (psoaritic rash) Neurological: Yes: Alert, Oriented Labs: CBC, BMP 06/18/17 06:30 06/18/17 06:30 INR, PTT INR 1.69 (0.82-1.09) H 06/16/17 21:00 Problem List - Problems (1) Liver cirrhosis Assessment/Plan: trend ammonia lactulose and rifaximin Code(s): K74.60 - UNSPECIFIED CIRRHOSIS OF LIVER Qualifiers: Qualified Code(s): K70.31 - Alcoholic cirrhosis of liver with ascites (2) Alcohol dependence with uncomplicated withdrawal Assessment/Plan: librium folate thiamine iv detox eval appreicated ativan Code(s): F10.230 - ALCOHOL DEPENDENCE WITH WITHDRAWAL, UNCOMPLICATED (3) Leukocytosis Assessment/Plan: send UA and urine culture elevated WBC count trending down unclear eitology no fever for now Code(s): D72.829 - ELEVATED WHITE BLOOD CELL COUNT, UNSPECIFIED Qualifiers: Qualified Code(s): D72.829 - Elevated white blood cell count, unspecified (4) Leg edema Assessment/Plan: aldactone and lasix dose decrease given hyponatremia will get renal consult Code(s): R60.0 - LOCALIZED EDEMA Assessment/Plan anemia and elevated bilirubin heme eval renal eval for renal insufficiency and hyponatremia diuretic dose reduced
[2017-06-18] MEDS: TRIAMCINOLONE ACET 0.1% OINT 15 GM TUBE TP SCH (11:55)
[2017-06-18] MEDS ORDERED: MAGNESIUM SULF 50% (8.12 MEQ/2 ML-1 GM VIAL) IVPB ONE (12:15)
[2017-06-18] MEDS: diazePAM 5 MG TABLET PO SCH ×2 (13:36→21:08)
[2017-06-18] MEDS ORDERED: FUROSEMIDE 40 MG TABLET (FP) PO SCH (14:00)
--- NOTE | 2017-06-18 16:52 | CON.NEP ---
Consult Consult Specialty:: Nephrology Referred by:: Dr. Felton Reason for Consultation:: PATRICIA, Hyponatremia - History of Present Illness Chief Complaint: Generalized weakness, depression History of Present Illness: This is a 52 year old gentleman with PMhx of Alcoholic liver cirrhosis, Psoriasis, Hx of Mild CKD presented with weakness and fatigue and developed PATRICIA and hyponatremia during this admission. Pt recently started drinking alcohol again and has been very depressed. Had poor solute intake at home. Pt given IV lasix there for management of LE edema and ascities. Laboratory Tests 06/16/17 06/17/17 06/18/17 23:13 16:10 06:30 Sodium 134 L 132 L 129 L Creatinine 1.1 D 1.5 H D 1.9 H D Pt denies any NSAID use. No contrast exposure. - History Source History Provided By: Patient, Family Member Limitations to Obtaining History: No Limitations - Past Medical History Cardio/Vascular: Yes: HTN Gastrointestinal: Yes: Ascites Hepatobiliary: Yes: Cirrhosis (Alcohol induced, decompensated), Other (History of severe alcoholic hepatitis, hepatic encephalopathy) Musculoskeletal: Yes: Other (Cellulitis and tenosynovitis +/- osteomyelitis 3rd/ 4th digit of left hand) Dermatology: Yes: Cellulitis (of LE and of hand), Psoriasis - Alcohol/Substance Use Hx Alcohol Use: Yes History of Substance Use: reports: None - Smoking History Smoking history: Unknown if ever smoked Have you smoked in the past 12 months: No - Social History Usual Living Arrangement: With Spouse ADL: Independent Occupation: disabled History of Recent Travel: No Home Medications - Allergies Allergies/Adverse Reactions: Allergies Allergy/AdvReac Type Severity Reaction Status Date / Time No Known Allergies Allergy Verified 06/16/17 19:21 - Home Medications Home Medications: Ambulatory Orders Thiamine HCl [Vitamin B1] 100 mg PO DAILY 12/21/16 Diazepam [Valium] 2 mg PO Q8H PRN #12 tablet MDD 2 06/02/17 Furosemide [Lasix] 80 mg PO BID #120 tab 06/02/17 Hydroxyzine HCl [Atarax -] 25 mg PO Q6H PRN #30 tablet 06/02/17 Magnesium Oxide [Mag-Ox -] 400 mg PO BID tablet 06/02/17 Nadolol 40 mg PO DAILY #30 tab 06/02/17 Oxycodone HCl 5 mg PO Q6H PRN #60 tab MDD 4 06/02/17 Pantoprazole Sodium [Protonix -] 40 mg PO BID #60 tab 06/02/17 Rifaximin [Xifaxan -] 550 mg PO BID #60 tablet 06/02/17 Spironolactone 50 mg PO BID #60 tab 06/02/17 Family Disease History - Family Disease History Family History: Unremarkable Other Family History: Non-contribuatory Review of Systems - Review of Systems Constitutional: reports: Lethargy, Weakness Eyes: reports: No Symptoms HENT: reports: No Symptoms Neck: reports: No Symptoms Cardiovascular: reports: Edema. denies: Chest Pain, Palpitations, Shortness of Breath Respiratory: reports: No Symptoms Gastrointestinal: reports: No Symptoms Genitourinary: reports: No Symptoms Neurological: reports: No Symptoms Endocrine: reports: No Symptoms Nephrology Consult - Height Height: 5 ft 6 in - Weight Weight: 90.35 kg - BMI Body Mass Index (BMI): 32.1 - Lab Results CBC,BMP: CBC, BMP 06/18/17 06:30 06/18/17 06:30 Anion Gap: Anion Gap Anion Gap 12 (8-16) 06/18/17 06:30 - Imaging Chest X-ray: Report Reviewed - Physical Examination Vital Signs: Vital Signs Temperature 98.0 F 06/18/17 13:41 Pulse Rate 85 06/18/17 13:41 Respiratory Rate 18 06/18/17 13:41 Blood Pressure 128/69 06/18/17 13:41 O2 Sat by Pulse Oximetry (%) 100 06/18/17 09:00 Constitutional: Yes: No Distress, Calm Eyes: Yes: Conjunctiva Clear HENT: Yes: Atraumatic Neck: Yes: Supple Cardiovascular: Yes: Regular Rate and Rhythm. No: Murmur, Rub Respiratory: Yes: Regular, CTA Bilaterally. No: Rales, Rhonchi Gastrointestinal: Yes: Normal Bowel Sounds, Ascites, Distention. No: Tenderness Renal/: No: Bladder Distention, CVA Tenderness - Left, CVA Tenderness - Right , [place] Present Extremities: No: Cold, Cool, Cyanosis Edema: Yes Edema: LLE: 2+, RLE: 2+ Neurological: Yes: Alert, Oriented. No: Asterixis Assessment/Plan 52 year old gentleman with PMhx of Alcoholic liver cirrhosis, Psoriasis, Hx of Mild CKD presented with weakness and fatigue and developed PATRICIA and hyponatremia during this admission. #Acute Renal Injury Likely secondary to hemodynamic changes in setting of acute diuresis vs. 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
[2017-06-18 16:53] VITALS: BMI 32.1
[2017-06-18] MEDS: BETAMETHASONE DIPR 0.05% CREAM 15 GM TUBE TP SCH ×2 (17:43→21:08)
--- NOTE | 2017-06-18 18:23 | PN ---
Progress Note (short form) - Note Progress Note: 52M admitted for evaluation of worsening depression and per his suicidal ideation at home. He was recently admitted to [facility] for evaluation of weakness / failure to thrive. 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 He underwent repeat EGD at that time that led to banding of varices. 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 Baarjas on several occasions. On his last admission his was thoroughly counseled about the problems with continued alcohol consumption including continued liver decompensation and . He was seen by psychiatry at that time and while arrangements for outpatient care and rehab were discussed and put in place, it appears as though Mr. Gottlieb has been non compliant. His blood alcohol level this admission was 186 in the ED. Currently, he denies shortness of breath, abdominal pain, vomiting. he has had a cough and his daughter has been experiencing URI symptoms. He has also noted a worsening of his psoriasis. He has been drinking alcohol regulalry but describes diminished appetite. The has been no change in behavior / mental status at home. His is present at bedside. - History Source History Provided By: Patient, Family Member, Medical Record - Past Medical History Cardio/Vascular: Yes: HTN Gastrointestinal: Yes: Ascites Hepatobiliary: Yes: Cirrhosis (Alcohol induced, decompensated), Other (History of severe alcoholic hepatitis, hepatic encephalopathy) Musculoskeletal: Yes: Other (Cellulitis and tenosynovitis +/- osteomyelitis 3rd/ 4th digit of left hand) Dermatology: Yes: Cellulitis (of LE and of hand), Psoriasis - Smoking History Smoking history: Unknown if ever smoked - Social History Usual Living Arrangement: With Spouse ADL: Independent Home Medications - Allergies Allergies/Adverse Reactions: Allergies Allergy/AdvReac Type Severity Reaction Status Date / Time No Known Allergies Allergy Verified 06/16/17 19:21 - Home Medications Home Medications: Ambulatory Orders Thiamine HCl [Vitamin B1] 100 mg PO DAILY 12/21/16 Diazepam [Valium] 2 mg PO Q8H PRN #12 tablet MDD 2 06/02/17 Furosemide [Lasix] 80 mg PO BID #120 tab 06/02/17 Hydroxyzine HCl [Atarax -] 25 mg PO Q6H PRN #30 tablet 06/02/17 Magnesium Oxide [Mag-Ox -] 400 mg PO BID tablet 06/02/17 Nadolol 40 mg PO DAILY #30 tab 06/02/17 Oxycodone HCl 5 mg PO Q6H PRN #60 tab MDD 4 06/02/17 Pantoprazole Sodium [Protonix -] 40 mg PO BID #60 tab 06/02/17 Rifaximin [Xifaxan -] 550 mg PO BID #60 tablet 06/02/17 Spironolactone 50 mg PO BID #60 tab 06/02/17 Family Disease History - Family Disease History Other Family History: Non-contribuatory Physical Exam-GI Vital Signs: Last Vital Signs Temp Pulse Resp BP Pulse Ox 97.9 F 77 18 133/72 100 06/18/17 17:51 06/18/17 17:51 06/18/17 17:51 06/18/17 17:51 06/18/17 09:00 Neck: Supple Nodes: Without adenopathy Breasts: Without masses Cor: RSR, No murmurs, No gallops Lungs: Clear to P&A Abd: Soft, Normal bowel sounds, No organomegaly Abnormal Lab Results 06/17/17 06/17/17 06/18/17 16:10 16:10 03:30 WBC RBC Hgb Hct MCV MCH RDW Plt Count 61 L D ESR Sodium Chloride BUN Creatinine Random Glucose Calcium Magnesium Total Bilirubin AST Ammonia Albumin Total Amylase Lipase 1176 H Urine Blood 3+ H Ur Leukocyte Esterase 1+ H 06/18/17 06/18/17 06/18/17 06:30 06:30 06:30 WBC 11.5 H RBC 2.20 L Hgb 7.8 L Hct 22.7 L MCV 103.0 H MCH 35.7 H RDW 16.4 H Plt Count 54 L ESR Sodium 129 L Chloride 92 L BUN 26 H D Creatinine 1.9 H D Random Glucose 130 H Calcium 7.8 L Magnesium Total Bilirubin 9.6 H AST 58 H Ammonia 54.61 H Albumin 2.5 L Total Amylase Lipase Urine Blood Ur Leukocyte Esterase 06/18/17 06/18/17 06:30 06:30 WBC RBC Hgb Hct MCV MCH RDW Plt Count ESR 60 H Sodium Chloride BUN Creatinine Random Glucose Calcium Magnesium 1.7 L D Total Bilirubin AST Ammonia Albumin Total Amylase 156 H Lipase Urine Blood Ur Leukocyte Esterase Assessment/Plan Decompensated alcohol induced cirrhosis: ascites/encephalopathy/bleeding anemia: multifactorial bleeding +/- hemolysis ( due to liver disease ? spur cell anemia)+ chronic disease check LDH/haptoglobin/darvin check folate To consider placement in detox
[2017-06-18] MEDS: MAGNESIUM OXIDE 400 MG TABLET (FP) PO SCH (21:08)
[2017-06-18] MEDS ORDERED: SPIRONOLACTONE 25 MG TABLET (FP) PO SCH (22:00)
[2017-06-19] MEDS ORDERED: PT OWN MED DRAWER 7, Y5N ONE ×3 (01:42→23:19)
[2017-06-19] MEDS: hydrOXYzine HCL 25 MG TABLET (FP) PO PRN ×3 (01:43→21:15)
[2017-06-19] MEDS: oxyCODONE HCL 5 MG TABLET PO PRN ×3 (02:30→21:13)
[2017-06-19] MEDS: diazePAM 5 MG TABLET PO SCH ×3 (06:04→22:16)
[2017-06-19 08:05] LABS: BASOPHIL 0.4 % (0-2.0); EOSINOPHIL 1.2 % (0-4.5); MCH 35.1 pg (25.7-33.7); MEAN CELL VOLUME 103.3 fl (80-96); MEAN PLT VOLUME 8.8 fl (7.5-11.1); NEUTROPHILS 78.3 % (42.8-82.8); PLATELET COUNT 58 K/MM3 (134-434); RDW 16.4 % (11.9-15.9); WHITE BLOOD COUNT 12.3 K/mm3 (4.0-10.0)
[2017-06-19 08:26] LABS: ALBUMIN 2.7 g/dl (3.4-5.0); ANION GAP 9 (8-16); CALCIUM 7.9 mg/dL (8.5-10.1); CO2 28 mmol/L (21-32); GLUCOSE,RANDOM 159 mg/dL (74-106)
[2017-06-19 08:29] LABS: ALK PHOS 150 U/L (45-117); BILIRUBIN,TOTAL 5.9 mg/dL (0.2-1.0); CREATININE 2.4 mg/dL (0.7-1.3); SGOT/AST 50 U/L (15-37); SGPT/ALT 21 U/L (12-78); TOT PROT 8.5 g/dl (6.4-8.2)
[2017-06-19 08:31] LABS: BILIRUBIN,DIRECT 2.8 mg/dL (0.0-0.2); PHOSPHOROUS 3.1 mg/dL (2.5-4.9)
[2017-06-19] MEDS ORDERED: NADOLOL 20 MG TABLET (FP) ONE (09:55)
[2017-06-19] MEDS ORDERED: OCTREOTIDE ACETATE 500 MCG/1 ML - 1 ML VIAL SQ SCH (10:00)
[2017-06-19] MEDS ORDERED: THIAMINE HCL 100 MG TABLET (FP) PO SCH (10:00)
[2017-06-19] MEDS: LACTULOSE 20 GM/30 ML UDC (FOR ORAL USE ONLY) PO SCH (10:13)
[2017-06-19] MEDS: RIFAXIMIN 550 MG TABLET (UD) PO SCH ×2 (10:14→21:14)
[2017-06-19] MEDS: MAGNESIUM OXIDE 400 MG TABLET (FP) PO SCH ×2 (10:15→21:13)
[2017-06-19] MEDS: MULTIVITAMINS (DAILY MVI) TABLET (FP) PO SCH (10:15)
[2017-06-19] MEDS: FOLIC ACID 1 MG TABLET (FP) PO SCH (10:15)
[2017-06-19] MEDS: NADOLOL 40 MG TABLET (FP) PO SCH (10:16)
[2017-06-19] MEDS: THIAMINE HCL 200 MG/2 ML VIAL IVPB SCH (10:16)
[2017-06-19] MEDS: PANTOPRAZOLE 40 MG TABLET (FP) PO SCH (10:16)
[2017-06-19] MEDS: diazePAM 5 MG TABLET PO PRN (10:32)
--- NOTE | 2017-06-19 10:56 | PN ---
Progress Note, Physician Chief Complaint: AWAKE ALERT FEELS GOOD - Current Medication List Current Medications: Active Medications Albumin Human (Albumin Human 25%) 25 gm IVPB Q6H [facility] Stop: 06/20/17 04:01 Betamethasone Dipropionate (Diprosone 0.05% Cream -) 1 applic TP BID [facility] Last Admin: 06/18/17 21:08 Dose: 1 applic Diazepam (Valium -) 5 mg PO TID [facility] Stop: 06/19/17 22:01 Last Admin: 06/19/17 06:04 Dose: 5 mg Diazepam (Valium -) 5 mg PO BID [facility] Stop: 06/21/17 22:01 Diazepam (Valium -) 5 mg PO DAILY [facility] Stop: 06/22/17 10:01 Diazepam (Valium -) 10 mg PO Q4H PRN PRN Reason: WITHDRAWAL(CONT SUBST) Stop: 06/21/17 11:21 Last Admin: 06/19/17 10:32 Dose: 10 mg Folic Acid (Folic Acid -) 1 mg PO DAILY [facility] Last Admin: 06/19/17 10:15 Dose: 1 mg Furosemide (Lasix -) 40 mg PO BID@0600,1400 [facility] Hydroxyzine HCl (Atarax -) 25 mg PO Q6H PRN PRN Reason: FOR ITCHING Last Admin: 06/19/17 01:43 Dose: 25 mg Lactulose (Cephulac (Oral Use)) 20 gm PO DAILY [facility] Last Admin: 06/19/17 10:13 Dose: 20 gm Magnesium Oxide (Mag-Ox -) 400 mg PO BID [facility] Last Admin: 06/19/17 10:15 Dose: 400 mg Midodrine (Proamatine -) 7.5 mg PO TID-MID [facility] Multivitamins/Minerals/Vitamin C (Tab-A-Vit -) 1 tab PO DAILY [facility] Last Admin: 06/19/17 10:15 Dose: 1 tab Nadolol (Corgard -) 40 mg PO DAILY [facility] Last Admin: 06/19/17 10:16 Dose: 40 mg Octreotide Acetate (Sandostatin -) 100 mcg SQ Q8H-IV [facility] Oxycodone HCl (Roxicodone -) 5 mg PO Q6H PRN PRN Reason: PAIN Last Admin: 06/19/17 10:32 Dose: 5 mg Pantoprazole Sodium (Protonix -) 40 mg PO DAILY [facility] Last Admin: 06/19/17 10:16 Dose: 40 mg Rifaximin (Xifaxan -) 550 mg PO BID [facility] Last Admin: 06/19/17 10:14 Dose: 550 mg Thiamine HCl (Vitamin B1 Injection -) 200 mg IVPB DAILY [facility] Last Admin: 06/19/17 10:16 Dose: 200 mg - Objective Vital Signs: Vital Signs Temperature 97.7 F 06/19/17 08:52 Pulse Rate 81 06/19/17 08:52 Respiratory Rate 20 06/19/17 08:52 Blood Pressure 136/67 06/19/17 08:52 O2 Sat by Pulse Oximetry (%) 100 06/18/17 21:00 Constitutional: Yes: No Distress Eyes: Yes: Other HENT: Yes: WNL Neck: Yes: WNL Cardiovascular: Yes: WNL Respiratory: Yes: WNL Gastrointestinal: Yes: WNL Genitourinary: Yes: WNL Musculoskeletal: Yes: WNL Extremities: Yes: WNL Edema: Yes Peripheral Pulses WNL: Yes Integumentary: Yes: Rash, Venous Stasis Changes Wound/Incision: Yes: Dressing Dry and Intact Neurological: Yes: Pre-Existing Deficit ...Motor Strength: WNL Psychiatric: Yes: WNL Labs: CBC, BMP 06/19/17 06:00 06/19/17 06:00 INR, PTT INR 1.69 (0.82-1.09) H 06/16/17 21:00 Problem List - Problems (1) Depression with anxiety Code(s): F41.8 - OTHER SPECIFIED ANXIETY DISORDERS (2) Liver cirrhosis Code(s): K74.60 - UNSPECIFIED CIRRHOSIS OF LIVER Qualifiers: Hepatic cirrhosis type: alcoholic cirrhosis Ascites presence: with ascites Qualified Code(s): K70.31 - Alcoholic cirrhosis of liver with ascites (3) Alcohol dependence with uncomplicated withdrawal Code(s): F10.230 - ALCOHOL DEPENDENCE WITH WITHDRAWAL, UNCOMPLICATED (4) Alcoholic cirrhosis Code(s): K70.30 - ALCOHOLIC CIRRHOSIS OF LIVER WITHOUT ASCITES Qualifiers: Ascites presence: with ascites Qualified Code(s): K70.31 - Alcoholic cirrhosis of liver with ascites (5) Anemia Code(s): D64.9 - ANEMIA, UNSPECIFIED Qualifiers: Anemia type: unspecified type Qualified Code(s): D64.9 - Anemia, unspecified (6) Jaundice Code(s): R17 - UNSPECIFIED JAUNDICE Assessment/Plan HEMATOLOGY EVAL TRANSFUSE PER GI/HEME MONITOR BILIRUBIN LEVEL ETOH ABUSE HISTORY LIVER CIRRHOSIS WILL NEED TRANSPLANT TEAM ONCE HE IS ABSTINENT OF ETOH MVI THIAMINE FOLIC ACID
[2017-06-19] MEDS: ALBUMIN HUMAN 25% 12.5 GM/50 ML VIAL IVPB SCH ×3 (11:06→21:16)
[2017-06-19] MEDS: MIDODRINE HCL 5 MG TABLET PO SCH ×4 (11:08→17:02)
[2017-06-19] MEDS: BETAMETHASONE DIPR 0.05% CREAM 15 GM TUBE TP SCH ×2 (11:08→21:14)
--- NOTE | 2017-06-19 11:29 | PN ---
Progress Note (short form) - Note Progress Note: Renal follow up for PATRICIA Pt seen and examined at the bedside awake and alert no sob, chest pain, abd pain making uirne feels well Vital Signs Temperature 97.7 F 06/19/17 08:52 Pulse Rate 81 06/19/17 08:52 Respiratory Rate 20 06/19/17 08:52 Blood Pressure 136/67 06/19/17 08:52 O2 Sat by Pulse Oximetry (%) 100 06/18/17 21:00 Intake & Output 06/16/17 06/17/17 06/18/17 06/19/17 23:59 23:59 23:59 23:59 Intake Total 150 1740 240 Balance 150 1740 240 Weight 90.718 kg 89.04 kg 90.35 kg 92.215 kg NAD RRR CTA soft, NT, + ascities 2+ LE edema CBC, BMP 06/19/17 06:00 06/19/17 06:00 Current Medications Albumin Human (Albumin Human 25%) 25 gm IVPB Q6H [facility] Stop: 06/20/17 04:01 Last Admin: 06/19/17 11:06 Dose: 25 gm Betamethasone Dipropionate (Diprosone 0.05% Cream -) 1 applic TP BID [facility] Last Admin: 06/19/17 11:08 Dose: 1 applic Diazepam (Valium -) 5 mg PO TID [facility] Stop: 06/19/17 22:01 Last Admin: 06/19/17 06:04 Dose: 5 mg Diazepam (Valium -) 5 mg PO BID [facility] Stop: 06/21/17 22:01 Diazepam (Valium -) 5 mg PO DAILY [facility] Stop: 06/22/17 10:01 Diazepam (Valium -) 10 mg PO Q4H PRN PRN Reason: WITHDRAWAL(CONT SUBST) Stop: 06/21/17 11:21 Last Admin: 06/19/17 10:32 Dose: 10 mg Folic Acid (Folic Acid -) 1 mg PO DAILY [facility] Last Admin: 06/19/17 10:15 Dose: 1 mg Furosemide (Lasix -) 40 mg PO BID@0600,1400 [facility] Hydroxyzine HCl (Atarax -) 25 mg PO Q6H PRN PRN Reason: FOR ITCHING Last Admin: 06/19/17 01:43 Dose: 25 mg Lactulose (Cephulac (Oral Use)) 20 gm PO DAILY [facility] Last Admin: 06/19/17 10:13 Dose: 20 gm Magnesium Oxide (Mag-Ox -) 400 mg PO BID [facility] Last Admin: 06/19/17 10:15 Dose: 400 mg Midodrine (Proamatine -) 7.5 mg PO TID-MID [facility] Last Admin: 06/19/17 11:09 Dose: Not Given Multivitamins/Minerals/Vitamin C (Tab-A-Vit -) 1 tab PO DAILY [facility] Last Admin: 06/19/17 10:15 Dose: 1 tab Nadolol (Corgard -) 40 mg PO DAILY [facility] Last Admin: 06/19/17 10:16 Dose: 40 mg Octreotide Acetate (Sandostatin -) 100 mcg SQ Q8H-IV [facility] Oxycodone HCl (Roxicodone -) 5 mg PO Q6H PRN PRN Reason: PAIN Last Admin: 06/19/17 10:32 Dose: 5 mg Pantoprazole Sodium (Protonix -) 40 mg PO DAILY [facility] Last Admin: 06/19/17 10:16 Dose: 40 mg Rifaximin (Xifaxan -) 550 mg PO BID [facility] Last Admin: 06/19/17 10:14 Dose: 550 mg Thiamine HCl (Vitamin B1 Injection -) 200 mg IVPB DAILY [facility] Last Admin: 06/19/17 10:16 Dose: 200 mg 52 year old gentleman with PMhx of Alcoholic liver cirrhosis, Psoriasis, Hx of Mild CKD presented with weakness and fatigue and developed PATRICIA and hyponatremia during this admission. #Acute Renal Injury Renal function worse today high suspsion for HRS given cirrhosis and recent ETOH use causing further decompenstation hold diuretics for now will start SC Octreotide, PO Midodrine, and IVPB Albumin monitor renal function #Hyponatremia from volume overload fluid restriction of 1.2 L #Alcoholic Liver cirrhosis supportive care #Elevated Lipase/Pancreatitis Gi following #Anemia Check iron studies transfuse for hgb less then 7 Prognosis is poor Ronaldo Gonzalez DO
[2017-06-19] MEDS: OCTREOTIDE ACETATE 100 MCG/1 ML SQ SCH (17:03)
[2017-06-20] MEDS ORDERED: PT OWN MED DRAWER 7, Y5N ONE ×2 (02:51→19:48)
[2017-06-20] MEDS: ALBUMIN HUMAN 25% 12.5 GM/50 ML VIAL IVPB SCH (03:12)
[2017-06-20] MEDS: OCTREOTIDE ACETATE 100 MCG/1 ML SQ SCH ×3 (03:13→18:39)
[2017-06-20] MEDS: diazePAM 5 MG TABLET PO PRN ×2 (03:20→18:39)
[2017-06-20] MEDS: oxyCODONE HCL 5 MG TABLET PO PRN ×3 (03:21→18:39)
[2017-06-20] MEDS: hydrOXYzine HCL 25 MG TABLET (FP) PO PRN ×3 (03:21→21:26)
[2017-06-20 06:37] LABS: SERUM IRON 112 ug/dL (38-169); TOTAL IRON BINDING CAPACITY 182 ug/dL (250-450); UIBC 70 ug/dL (111-343)
[2017-06-20 08:06] LABS: HEMATOCRIT 21.8 % (37.5-51.0)
[2017-06-20 08:20] LABS: ALBUMIN 3.5 g/dl (3.4-5.0); ANION GAP 8 (8-16); CALCIUM 8.5 mg/dL (8.5-10.1); CO2 28 mmol/L (21-32); GLUCOSE,RANDOM 151 mg/dL (74-106); MAGNESIUM 2.2 mg/dL (1.8-2.4)
[2017-06-20 08:25] LABS: ALK PHOS 128 U/L (45-117); BASOPHIL 0.4 % (0-2.0); BILIRUBIN,TOTAL 4.6 mg/dL (0.2-1.0); CREATININE 2.5 mg/dL (0.7-1.3); EOSINOPHIL 2.2 % (0-4.5); MCH 35.3 pg (25.7-33.7); MCHC 34.1 g/dl (32.0-35.9); MEAN CELL VOLUME 103.8 fl (80-96); MEAN PLT VOLUME 8.7 fl (7.5-11.1); NEUTROPHILS 76.1 % (42.8-82.8); PHOSPHOROUS 3.2 mg/dL (2.5-4.9); PLATELET COUNT 59 K/MM3 (134-434); RDW 16.6 % (11.9-15.9); SGOT/AST 45 U/L (15-37); SGPT/ALT 20 U/L (12-78); WHITE BLOOD COUNT 11.2 K/mm3 (4.0-10.0)
[2017-06-20] MEDS ORDERED: NADOLOL 20 MG TABLET (FP) ONE (09:45)
[2017-06-20] MEDS: diazePAM 5 MG TABLET PO SCH ×2 (09:56→21:25)
[2017-06-20] MEDS: MIDODRINE HCL 5 MG TABLET PO SCH ×3 (09:57→18:38)
[2017-06-20] MEDS: RIFAXIMIN 550 MG TABLET (UD) PO SCH ×2 (09:57→21:25)
[2017-06-20] MEDS: MULTIVITAMINS (DAILY MVI) TABLET (FP) PO SCH (09:57)
[2017-06-20] MEDS: NADOLOL 40 MG TABLET (FP) PO SCH (09:58)
[2017-06-20] MEDS: FOLIC ACID 1 MG TABLET (FP) PO SCH (09:58)
[2017-06-20] MEDS: THIAMINE HCL 200 MG/2 ML VIAL IVPB SCH (09:58)
[2017-06-20] MEDS: PANTOPRAZOLE 40 MG TABLET (FP) PO SCH (09:58)
[2017-06-20] MEDS: MAGNESIUM OXIDE 400 MG TABLET (FP) PO SCH ×2 (09:58→21:25)
[2017-06-20] MEDS: LACTULOSE 20 GM/30 ML UDC (FOR ORAL USE ONLY) PO SCH (09:59)
--- NOTE | 2017-06-20 10:09 | PN ---
Progress Note, Physician Chief Complaint: AWAKE ALERT C/O ARTHRITIC PAIN - Current Medication List Current Medications: Active Medications Betamethasone Dipropionate (Diprosone 0.05% Cream -) 1 applic TP BID [facility] Last Admin: 06/19/17 21:14 Dose: 1 applic Diazepam (Valium -) 5 mg PO BID [facility] Stop: 06/21/17 22:01 Last Admin: 06/20/17 09:56 Dose: 5 mg Diazepam (Valium -) 5 mg PO DAILY [facility] Stop: 06/22/17 10:01 Diazepam (Valium -) 10 mg PO Q4H PRN PRN Reason: WITHDRAWAL(CONT SUBST) Stop: 06/21/17 11:21 Last Admin: 06/20/17 03:20 Dose: 10 mg Folic Acid (Folic Acid -) 1 mg PO DAILY [facility] Last Admin: 06/20/17 09:58 Dose: 1 mg Furosemide (Lasix -) 40 mg PO BID@0600,1400 [facility] Hydroxyzine HCl (Atarax -) 25 mg PO Q6H PRN PRN Reason: FOR ITCHING Last Admin: 06/20/17 03:21 Dose: 25 mg Lactulose (Cephulac (Oral Use)) 20 gm PO DAILY [facility] Last Admin: 06/20/17 09:59 Dose: 20 gm Magnesium Oxide (Mag-Ox -) 400 mg PO BID [facility] Last Admin: 06/20/17 09:58 Dose: 400 mg Midodrine (Proamatine -) 7.5 mg PO TID-MID [facility] Last Admin: 06/20/17 09:57 Dose: 7.5 mg Multivitamins/Minerals/Vitamin C (Tab-A-Vit -) 1 tab PO DAILY [facility] Last Admin: 06/20/17 09:57 Dose: 1 tab Nadolol (Corgard -) 40 mg PO DAILY [facility] Last Admin: 06/20/17 09:58 Dose: 40 mg Octreotide Acetate (Sandostatin -) 100 mcg SQ Q8H-IV [facility] Last Admin: 06/20/17 03:13 Dose: 100 mcg Oxycodone HCl (Roxicodone -) 5 mg PO Q6H PRN PRN Reason: PAIN Last Admin: 06/20/17 09:56 Dose: 5 mg Pantoprazole Sodium (Protonix -) 40 mg PO DAILY [facility] Last Admin: 06/20/17 09:58 Dose: 40 mg Rifaximin (Xifaxan -) 550 mg PO BID [facility] Last Admin: 06/20/17 09:57 Dose: 550 mg Thiamine HCl (Vitamin B1 Injection -) 200 mg IVPB DAILY [facility] Last Admin: 06/20/17 09:58 Dose: 200 mg - Objective Vital Signs: Vital Signs Temperature 98.1 F 06/20/17 06:00 Pulse Rate 83 06/20/17 06:00 Respiratory Rate 18 06/20/17 06:00 Blood Pressure 120/63 06/20/17 06:00 O2 Sat by Pulse Oximetry (%) 100 06/19/17 21:00 Constitutional: Yes: Mild Distress Eyes: Yes: WNL HENT: Yes: WNL Neck: Yes: WNL Cardiovascular: Yes: WNL Respiratory: Yes: WNL Gastrointestinal: Yes: WNL Genitourinary: Yes: WNL Musculoskeletal: Yes: Joint Stiffness Extremities: Yes: WNL Edema: Yes Peripheral Pulses WNL: Yes Integumentary: Yes: Rash Wound/Incision: Yes: Dressing Dry and Intact Neurological: Yes: Pre-Existing Deficit ...Motor Strength: LLE, RLE Psychiatric: Yes: Other Labs: CBC, BMP 06/20/17 06:00 06/20/17 06:00 INR, PTT INR 1.69 (0.82-1.09) H 06/16/17 21:00 Problem List - Problems (1) Depression with anxiety Code(s): F41.8 - OTHER SPECIFIED ANXIETY DISORDERS (2) Liver cirrhosis Code(s): K74.60 - UNSPECIFIED CIRRHOSIS OF LIVER Qualifiers: Hepatic cirrhosis type: alcoholic cirrhosis Ascites presence: with ascites Qualified Code(s): K70.31 - Alcoholic cirrhosis of liver with ascites (3) Alcohol dependence with uncomplicated withdrawal Code(s): F10.230 - ALCOHOL DEPENDENCE WITH WITHDRAWAL, UNCOMPLICATED (4) Alcoholic cirrhosis Code(s): K70.30 - ALCOHOLIC CIRRHOSIS OF LIVER WITHOUT ASCITES Qualifiers: Ascites presence: with ascites Qualified Code(s): K70.31 - Alcoholic cirrhosis of liver with ascites (5) Anemia Code(s): D64.9 - ANEMIA, UNSPECIFIED Qualifiers: Anemia type: unspecified type Qualified Code(s): D64.9 - Anemia, unspecified (6) Jaundice Code(s): R17 - UNSPECIFIED JAUNDICE (7) Psoriasis Code(s): L40.9 - PSORIASIS, UNSPECIFIED Assessment/Plan TRANSFUSION PER HEMATOLOGY DISCUSSED WITH NURSE KRYSTYNA TO CALL DR BUENO FOR ORDER OF PRBC OR WAIT FOR OTHER LABS TO RETURN OOB TO CHAIR FALL RISKS DISCUSSED ETOH DETOX OUTPATIENT
--- NOTE | 2017-06-20 10:49 | PN ---
Progress Note (short form) - Note Progress Note: Renal follow up for PATRICIA Pt seen and examined at the bedside awake and alert complains of puritis denies any pain, N/V, SOB making urine s/p Albumin yesterday Vital Signs Temperature 98.1 F 06/20/17 06:00 Pulse Rate 83 06/20/17 06:00 Respiratory Rate 18 06/20/17 06:00 Blood Pressure 120/63 06/20/17 06:00 O2 Sat by Pulse Oximetry (%) 100 06/19/17 21:00 Intake & Output 06/17/17 06/18/17 06/19/17 06/20/17 23:59 23:59 23:59 23:59 Intake Total 150 1740 1440 200 Balance 150 1740 1440 200 Weight 89.04 kg 90.35 kg 92.215 kg 94.211 kg NAD RRR CTA soft, NT, + ascities 2+ LE edema CBC, BMP 06/20/17 06:00 06/20/17 06:00 Current Medications Betamethasone Dipropionate (Diprosone 0.05% Cream -) 1 applic TP BID [facility] Last Admin: 06/19/17 21:14 Dose: 1 applic Diazepam (Valium -) 5 mg PO BID [facility] Stop: 06/21/17 22:01 Last Admin: 06/20/17 09:56 Dose: 5 mg Diazepam (Valium -) 5 mg PO DAILY [facility] Stop: 06/22/17 10:01 Diazepam (Valium -) 10 mg PO Q4H PRN PRN Reason: WITHDRAWAL(CONT SUBST) Stop: 06/21/17 11:21 Last Admin: 06/20/17 03:20 Dose: 10 mg Folic Acid (Folic Acid -) 1 mg PO DAILY [facility] Last Admin: 06/20/17 09:58 Dose: 1 mg Hydroxyzine HCl (Atarax -) 25 mg PO Q6H PRN PRN Reason: FOR ITCHING Last Admin: 06/20/17 03:21 Dose: 25 mg Lactulose (Cephulac (Oral Use)) 20 gm PO DAILY [facility] Last Admin: 06/20/17 09:59 Dose: 20 gm Magnesium Oxide (Mag-Ox -) 400 mg PO BID [facility] Last Admin: 06/20/17 09:58 Dose: 400 mg Midodrine (Proamatine -) 7.5 mg PO TID-MID [facility] Last Admin: 06/20/17 09:57 Dose: 7.5 mg Multivitamins/Minerals/Vitamin C (Tab-A-Vit -) 1 tab PO DAILY [facility] Last Admin: 06/20/17 09:57 Dose: 1 tab Nadolol (Corgard -) 40 mg PO DAILY [facility] Last Admin: 06/20/17 09:58 Dose: 40 mg Octreotide Acetate (Sandostatin -) 100 mcg SQ Q8H-IV [facility] Last Admin: 06/20/17 03:13 Dose: 100 mcg Oxycodone HCl (Roxicodone -) 5 mg PO Q6H PRN PRN Reason: PAIN Last Admin: 06/20/17 09:56 Dose: 5 mg Pantoprazole Sodium (Protonix -) 40 mg PO DAILY [facility] Last Admin: 06/20/17 09:58 Dose: 40 mg Rifaximin (Xifaxan -) 550 mg PO BID [facility] Last Admin: 06/20/17 09:57 Dose: 550 mg Thiamine HCl (Vitamin B1 Injection -) 200 mg IVPB DAILY [facility] Last Admin: 06/20/17 09:58 Dose: 200 mg 52 year old gentleman with PMhx of Alcoholic liver cirrhosis, Psoriasis, Hx of Mild CKD presented with weakness and fatigue and developed PATRICIA and hyponatremia during this admission. #Acute Renal Injury Renal function stable today pt reports making urine but output is not quantified, start strict I and O will continue octreotie and Midodrine today low suspsion for abd compartment syndrome as belly is not very tense repeat BMP this afternoon No acute indication for [employer] #Hyponatremia from volume overload fluid restriction of 1.2 L #Alcoholic Liver cirrhosis supportive care #Elevated Lipase/Pancreatitis Gi following #Anemia Check iron studies transfuse for hgb less then 7 Prognosis is poor Ronaldo Gonzalez DO
[2017-06-20] MEDS: BETAMETHASONE DIPR 0.05% CREAM 15 GM TUBE TP SCH ×2 (14:00→21:28)
--- NOTE | 2017-06-20 14:04 | PN ---
Progress Note (short form) - Note Progress Note: Seen in follow up. No new complaints. Reporting fatigue, but denies dyspnea at rest, or with light exertion. Meds reviewed. Current Medications Generic Name Dose Route Start Last Admin Trade Name Freq PRN Reason Stop Dose Admin Betamethasone Dipropionate 1 applic 06/18/17 13:00 06/20/17 14:00 Diprosone 0.05% Cream - TP 1 applic BID [facility] Administration Diazepam 5 mg 06/20/17 10:00 06/20/17 09:56 Valium - PO 06/21/17 22:01 5 mg BID [facility] Administration Diazepam 5 mg 06/22/17 10:00 Valium - PO 06/22/17 10:01 DAILY [facility] Diazepam 10 mg 06/18/17 11:22 06/20/17 03:20 Valium - PO 06/21/17 11:21 10 mg Q4H PRN Administration WITHDRAWAL(CONT SUBST) Folic Acid 1 mg 06/17/17 13:45 06/20/17 09:58 Folic Acid - PO 1 mg DAILY [facility] Administration Hydroxyzine HCl 25 mg 06/17/17 05:53 06/20/17 13:59 Atarax - PO 25 mg Q6H PRN Administration FOR ITCHING Lactulose 20 gm 06/17/17 21:45 06/20/17 09:59 Cephulac (Oral Use) PO 20 gm DAILY [facility] Administration Magnesium Oxide 400 mg 06/18/17 22:00 06/20/17 09:58 Mag-Ox - PO 400 mg BID [facility] Administration Midodrine 7.5 mg 06/19/17 09:00 06/20/17 14:01 Proamatine - PO 7.5 mg TID-MID [facility] Administration Multivitamins/Minerals/Vitamin C 1 tab 06/19/17 10:00 06/20/17 09:57 Tab-A-Vit - PO 1 tab DAILY [facility] Administration Nadolol 40 mg 06/17/17 06:00 06/20/17 09:58 Corgard - PO 40 mg DAILY [facility] Administration Octreotide Acetate 100 mcg 06/19/17 10:11 06/20/17 13:59 Sandostatin - SQ 100 mcg Q8H-IV [facility] Administration Oxycodone HCl 5 mg 06/17/17 16:02 06/20/17 09:56 Roxicodone - PO 5 mg Q6H PRN Administration PAIN Pantoprazole Sodium 40 mg 06/17/17 06:00 06/20/17 09:58 Protonix - PO 40 mg DAILY [facility] Administration Rifaximin 550 mg 06/17/17 06:00 06/20/17 09:57 Xifaxan - PO 550 mg BID [facility] Administration Thiamine HCl 200 mg 06/19/17 10:00 06/20/17 09:58 Vitamin B1 Injection - IVPB 200 mg DAILY [facility] Administration On exam: Last Vital Signs Temp Pulse Resp BP Pulse Ox 98.1 F 83 18 120/63 100 06/20/17 06:00 06/20/17 06:00 06/20/17 06:00 06/20/17 06:00 06/20/17 09:00 General: Looks well, ambulant. Extremities: Mild pallor. Chest:breathing comfortably, clear to auscultation CVS: S1, S2, no gallop or murmur. Abdomen: Soft, distended. Neuro: Alert, mentates somewhat slowly, but oriented, non-focal. CBC, BMP 06/20/17 06:00 06/20/17 06:00 Assessment. Liver cirrhosis, recent alcohol cessation, with some decompensation. Anemia is stable, and not particularly symptomatic. Likely combination of anemia of chronic disease and some degree of hemolysis - ? Zieves syndrome.. See no indication for transfusion. High ferritin noted - in general would avoid transfusion unless absolutely indicated. Close observation.
[2017-06-20 15:42] LABS: ANION GAP 10 (8-16); CALCIUM 8.5 mg/dL (8.5-10.1); CO2 25 mmol/L (21-32); GLUCOSE,RANDOM 185 mg/dL (74-106)
[2017-06-20 15:44] LABS: CREATININE 2.3 mg/dL (0.7-1.3)
[2017-06-21] MEDS: OCTREOTIDE ACETATE 100 MCG/1 ML SQ SCH ×3 (01:01→18:22)
[2017-06-21] MEDS: oxyCODONE HCL 5 MG TABLET PO PRN ×4 (01:01→19:47)
[2017-06-21] MEDS: diazePAM 5 MG TABLET PO PRN (03:40)
[2017-06-21] MEDS: hydrOXYzine HCL 25 MG TABLET (FP) PO PRN ×3 (03:40→18:41)
[2017-06-21 07:33] LABS: MCH 35.9 pg (25.7-33.7); MEAN CELL VOLUME 105.7 fl (80-96); MEAN PLT VOLUME 8.9 fl (7.5-11.1); PLATELET COUNT 50 K/MM3 (134-434); RDW 16.7 % (11.9-15.9); WHITE BLOOD COUNT 7.9 K/mm3 (4.0-10.0)
[2017-06-21 07:47] LABS: ANION GAP 7 (8-16); CALCIUM 8.2 mg/dL (8.5-10.1); CO2 27 mmol/L (21-32); GLUCOSE,RANDOM 205 mg/dL (74-106); LDH 237 U/L (87-241); MAGNESIUM 2.1 mg/dL (1.8-2.4)
[2017-06-21 07:47] LABS: CHOLESTEROL 172 mg/dL (50-200)
[2017-06-21] MEDS ORDERED: NADOLOL 20 MG TABLET (FP) ONE (09:10)
[2017-06-21] MEDS ORDERED: PT OWN MED DRAWER 7, Y5N ONE ×2 (09:11→19:50)
--- NOTE | 2017-06-21 09:21 | PN ---
S Progress Note (SOAP) Subjective: detox successful, no symptoms of withdrawal, concerned about medical issues and where he will be going for rehab, Objective: 06/21/17 09:19 Vital Signs - 8 hr 06/21/17 06:00 Temperature 97.9 F Pulse Rate 80 Respiratory 20 Rate Blood Pressure 131/68 Laboratory Results - last 24 hr 06/20/17 06/21/17 06/21/17 15:00 06:15 06:15 WBC 7.9 RBC 1.84 L Hgb 6.6 L* D Hct 19.5 L MCV 105.7 H MCH 35.9 H MCHC 34.0 RDW 16.7 H Plt Count 50 L MPV 8.9 Retic Count Sodium 133 L 133 L Potassium 4.6 4.4 Chloride 98 99 Carbon Dioxide 25 27 Anion Gap 10 7 L BUN 40 H 38 H Creatinine 2.3 H 2.0 H Random Glucose 185 H D 205 H Calcium 8.5 8.2 L Phosphorus 3.0 Magnesium 2.1 Ammonia LD Total 237 D Triglycerides Cholesterol Total LDL Cholesterol HDL Cholesterol 06/21/17 06/21/17 06/21/17 06:15 06:15 07:11 WBC RBC Hgb Hct MCV MCH MCHC RDW Plt Count MPV Retic Count 3.24 H Sodium Potassium Chloride Carbon Dioxide Anion Gap BUN Creatinine Random Glucose Calcium Phosphorus Magnesium Ammonia 46.53 H LD Total Triglycerides 82 Cholesterol 172 Total LDL Cholesterol 83 HDL Cholesterol 50 anemia, elevated ammonia persistshyperglycemia, PATRICIA Assessment: 06/21/17 09:20 completed alcohol detox, with valiu, will continue valium 10mg qHS fro sleep. pateint should be discharged to inpatient rehab when [facility], famly choosing facility. Welcome at [facility] but he does ntow ant to come, nor [facility] because of clientele. dale James MD [phone]
[2017-06-21] MEDS: LACTULOSE 20 GM/30 ML UDC (FOR ORAL USE ONLY) PO SCH (09:23)
[2017-06-21] MEDS: MIDODRINE HCL 5 MG TABLET PO SCH ×3 (09:24→18:24)
[2017-06-21] MEDS: RIFAXIMIN 550 MG TABLET (UD) PO SCH ×2 (09:24→21:22)
[2017-06-21] MEDS: MULTIVITAMINS (DAILY MVI) TABLET (FP) PO SCH (09:24)
[2017-06-21] MEDS: THIAMINE HCL 200 MG/2 ML VIAL IVPB SCH (09:24)
[2017-06-21] MEDS: PANTOPRAZOLE 40 MG TABLET (FP) PO SCH (09:24)
[2017-06-21] MEDS: diazePAM 5 MG TABLET PO SCH ×2 (09:25→23:19)
[2017-06-21] MEDS: MAGNESIUM OXIDE 400 MG TABLET (FP) PO SCH ×2 (09:25→21:22)
[2017-06-21] MEDS: FOLIC ACID 1 MG TABLET (FP) PO SCH (09:25)
[2017-06-21] MEDS: BETAMETHASONE DIPR 0.05% CREAM 15 GM TUBE TP SCH ×2 (09:26→21:23)
[2017-06-21] MEDS: NADOLOL 40 MG TABLET (FP) PO SCH (09:26)
[2017-06-21] MEDS ORDERED: INSULIN (NOVOLOG) ASPART 100 UNITS/ML 10ML VIAL ONE (09:49)
--- NOTE | 2017-06-21 11:14 | PN ---
Progress Note, Physician Chief Complaint: patient seen and examined awaiting to get blood transfusion - Current Medication List Current Medications: Active Medications Betamethasone Dipropionate (Diprosone 0.05% Cream -) 1 applic TP BID [facility] Last Admin: 06/21/17 09:26 Dose: 1 applic Diazepam (Valium -) 5 mg PO BID [facility] Stop: 06/21/17 22:01 Last Admin: 06/21/17 09:25 Dose: 5 mg Diazepam (Valium -) 5 mg PO DAILY [facility] Stop: 06/22/17 10:01 Diazepam (Valium -) 10 mg PO [facility] Folic Acid (Folic Acid -) 1 mg PO DAILY [facility] Last Admin: 06/21/17 09:25 Dose: 1 mg Hydroxyzine HCl (Atarax -) 25 mg PO Q6H PRN PRN Reason: FOR ITCHING Last Admin: 06/21/17 10:45 Dose: 25 mg Lactulose (Cephulac (Oral Use)) 20 gm PO DAILY [facility] Last Admin: 06/21/17 09:23 Dose: 20 gm Magnesium Oxide (Mag-Ox -) 400 mg PO BID [facility] Last Admin: 06/21/17 09:25 Dose: 400 mg Midodrine (Proamatine -) 7.5 mg PO TID-MID [facility] Last Admin: 06/21/17 09:24 Dose: 7.5 mg Multivitamins/Minerals/Vitamin C (Tab-A-Vit -) 1 tab PO DAILY [facility] Last Admin: 06/21/17 09:24 Dose: 1 tab Nadolol (Corgard -) 40 mg PO DAILY [facility] Last Admin: 06/21/17 09:26 Dose: 40 mg Octreotide Acetate (Sandostatin -) 100 mcg SQ Q8H-IV [facility] Last Admin: 06/21/17 09:25 Dose: 100 mcg Oxycodone HCl (Roxicodone -) 5 mg PO Q6H PRN PRN Reason: PAIN Last Admin: 06/21/17 07:33 Dose: 5 mg Pantoprazole Sodium (Protonix -) 40 mg PO DAILY [facility] Last Admin: 06/21/17 09:24 Dose: 40 mg Rifaximin (Xifaxan -) 550 mg PO BID [facility] Last Admin: 06/21/17 09:24 Dose: 550 mg Thiamine HCl (Vitamin B1 Injection -) 200 mg IVPB DAILY [facility] Last Admin: 06/21/17 09:24 Dose: 200 mg - Objective Vital Signs: Vital Signs Temperature 98.3 F 06/21/17 09:00 Pulse Rate 72 06/21/17 09:00 Respiratory Rate 20 06/21/17 09:00 Blood Pressure 124/62 06/21/17 09:00 O2 Sat by Pulse Oximetry (%) 99 06/21/17 09:00 Constitutional: Yes: Calm Eyes: Yes: Sclera Icterus Cardiovascular: Yes: Regular Rate and Rhythm, S1, S2 Respiratory: Yes: CTA Bilaterally Gastrointestinal: Yes: Soft, Ascites, Distention Extremities: Yes: Other (psoaritic rash) Edema: Yes Neurological: Yes: Alert, Oriented Labs: CBC, BMP 06/21/17 06:15 06/21/17 06:15 INR, PTT INR 1.69 (0.82-1.09) H 06/16/17 21:00 Problem List - Problems (1) Anemia Assessment/Plan: prbc today Code(s): D64.9 - ANEMIA, UNSPECIFIED Qualifiers: Anemia type: unspecified type Qualified Code(s): D64.9 - Anemia, unspecified (2) Hyponatremia Assessment/Plan: na is improving slowing fluid restriction 1.2 L Code(s): E87.1 - HYPO-OSMOLALITY AND HYPONATREMIA (3) Liver cirrhosis Assessment/Plan: trend ammonia lactulose and rifaximin Code(s): K74.60 - UNSPECIFIED CIRRHOSIS OF LIVER Qualifiers: Hepatic cirrhosis type: alcoholic cirrhosis Ascites presence: with ascites Qualified Code(s): K70.31 - Alcoholic cirrhosis of liver with ascites (4) Alcohol dependence with uncomplicated withdrawal Assessment/Plan: librium- completed folate thiamine iv patient needs inpatient rehab after this hospital admission he says his is looking for a facility patient does not want to go to [facility] Code(s): F10.230 - ALCOHOL DEPENDENCE WITH WITHDRAWAL, UNCOMPLICATED (5) Leukocytosis Assessment/Plan: now improved Code(s): D72.829 - ELEVATED WHITE BLOOD CELL COUNT, UNSPECIFIED Qualifiers: Leukocytosis type: unspecified Qualified Code(s): D72.829 - Elevated white blood cell count, unspecified (6) Leg edema Assessment/Plan: duiretic stop Code(s): R60.0 - LOCALIZED EDEMA (7) Acute kidney injury Assessment/Plan: renal function improving today on octreotide and midodrine Code(s): N17.9 - ACUTE KIDNEY FAILURE, UNSPECIFIED (8) Psoriasis Assessment/Plan: patient uses clobestasol as outpatient the equivalent ordered in hospital atarax for itching Code(s): L40.9 - PSORIASIS, UNSPECIFIED
--- NOTE | 2017-06-21 11:56 | PN ---
Progress Note, Physician Chief Complaint: 52 year old gentleman with PMhx of Alcoholic liver cirrhosis, Psoriasis, Hx of Mild CKD presented with weakness and fatigue and developed PATRICIA and Hyponatremia during this admission. The patient in possible HRS...On Octreotide and Midodrine. - Current Medication List Current Medications: Active Medications Betamethasone Dipropionate (Diprosone 0.05% Cream -) 1 applic TP BID [facility] Last Admin: 06/21/17 09:26 Dose: 1 applic Diazepam (Valium -) 5 mg PO BID [facility] Stop: 06/21/17 22:01 Last Admin: 06/21/17 09:25 Dose: 5 mg Diazepam (Valium -) 5 mg PO DAILY [facility] Stop: 06/22/17 10:01 Diazepam (Valium -) 10 mg PO [facility] Folic Acid (Folic Acid -) 1 mg PO DAILY [facility] Last Admin: 06/21/17 09:25 Dose: 1 mg Hydroxyzine HCl (Atarax -) 25 mg PO Q6H PRN PRN Reason: FOR ITCHING Last Admin: 06/21/17 10:45 Dose: 25 mg Lactulose (Cephulac (Oral Use)) 20 gm PO DAILY [facility] Last Admin: 06/21/17 09:23 Dose: 20 gm Magnesium Oxide (Mag-Ox -) 400 mg PO BID [facility] Last Admin: 06/21/17 09:25 Dose: 400 mg Midodrine (Proamatine -) 7.5 mg PO TID-MID [facility] Last Admin: 06/21/17 09:24 Dose: 7.5 mg Multivitamins/Minerals/Vitamin C (Tab-A-Vit -) 1 tab PO DAILY [facility] Last Admin: 06/21/17 09:24 Dose: 1 tab Nadolol (Corgard -) 40 mg PO DAILY [facility] Last Admin: 06/21/17 09:26 Dose: 40 mg Octreotide Acetate (Sandostatin -) 100 mcg SQ Q8H-IV [facility] Last Admin: 06/21/17 09:25 Dose: 100 mcg Oxycodone HCl (Roxicodone -) 5 mg PO Q6H PRN PRN Reason: PAIN Last Admin: 06/21/17 07:33 Dose: 5 mg Pantoprazole Sodium (Protonix -) 40 mg PO DAILY [facility] Last Admin: 06/21/17 09:24 Dose: 40 mg Rifaximin (Xifaxan -) 550 mg PO BID [facility] Last Admin: 06/21/17 09:24 Dose: 550 mg Thiamine HCl (Vitamin B1 Injection -) 200 mg IVPB DAILY [facility] Last Admin: 06/21/17 09:24 Dose: 200 mg - Objective Vital Signs: Vital Signs Temperature 98.3 F 06/21/17 09:00 Pulse Rate 72 06/21/17 09:00 Respiratory Rate 20 06/21/17 09:00 Blood Pressure 124/62 06/21/17 09:00 O2 Sat by Pulse Oximetry (%) 99 06/21/17 09:00 Constitutional: Yes: Anxious, Pallor, Other (Deep icterus) Neck: Yes: Trachea Midline Cardiovascular: Yes: S1, S2 Respiratory: Yes: CTA Bilaterally Gastrointestinal: Yes: Normal Bowel Sounds, Ascites Labs: CBC, BMP 06/21/17 06:15 06/21/17 06:15 INR, PTT INR 1.69 (0.82-1.09) H 06/16/17 21:00 Assessment/Plan 52 year old gentleman with PMhx of Alcoholic liver cirrhosis, Psoriasis, Hx of Mild CKD presented with weakness and fatigue and developed PATRICIA and hyponatremia during this admission. #Acute Renal Injury Renal function stable today Urine output improving. #Hyponatremia from volume overload. Serum Na 133 fluid restriction of 1.2 L #Alcoholic Liver cirrhosis supportive care #Anemia Should consider Transfusion. Will monitor the Renal functions with you. Ángela Ford
--- NOTE | 2017-06-21 13:17 | PN ---
Progress Note (short form) - Note Progress Note: called peer to peer review phone line regarding denial of current hospital stay option #4 awaiting call back Problem List - Problems (1) Anemia Code(s): D64.9 - ANEMIA, UNSPECIFIED Qualifiers: Anemia type: unspecified type Qualified Code(s): D64.9 - Anemia, unspecified (2) Hyponatremia Code(s): E87.1 - HYPO-OSMOLALITY AND HYPONATREMIA (3) Liver cirrhosis Code(s): K74.60 - UNSPECIFIED CIRRHOSIS OF LIVER Qualifiers: Hepatic cirrhosis type: alcoholic cirrhosis Ascites presence: with ascites Qualified Code(s): K70.31 - Alcoholic cirrhosis of liver with ascites (4) Alcohol dependence with uncomplicated withdrawal Code(s): F10.230 - ALCOHOL DEPENDENCE WITH WITHDRAWAL, UNCOMPLICATED (5) Leukocytosis Code(s): D72.829 - ELEVATED WHITE BLOOD CELL COUNT, UNSPECIFIED Qualifiers: Leukocytosis type: unspecified Qualified Code(s): D72.829 - Elevated white blood cell count, unspecified (6) Leg edema Code(s): R60.0 - LOCALIZED EDEMA (7) Acute kidney injury Code(s): N17.9 - ACUTE KIDNEY FAILURE, UNSPECIFIED (8) Psoriasis Code(s): L40.9 - PSORIASIS, UNSPECIFIED
[2017-06-21] MEDS ORDERED: diazePAM 2 MG TABLET PO ONE (19:15)
[2017-06-21] MEDS ORDERED: diazePAM 5 MG TABLET PO ONE (19:30)
--- NOTE | 2017-06-21 20:16 | PN ---
Progress Note (short form) - Note Progress Note: Patient seen and examined Denies any complaints Last Vital Signs Temp Pulse Resp BP Pulse Ox 97.9 F 79 18 128/66 99 06/21/17 18:00 06/21/17 18:00 06/21/17 18:00 06/21/17 18:00 06/21/17 09:00 Cor: RSR, No murmurs, No gallops Lungs: Clear to P&A Abd: Soft, Normal bowel sounds, No organomegaly Ext:No significant edema Skin: No rashes, Integument intact Abnormal Lab Results 06/19/17 06/21/17 06/21/17 08:49 06:15 06:15 RBC 1.84 L Hgb 6.6 L* D Hct 19.5 L MCV 105.7 H MCH 35.9 H RDW 16.7 H Plt Count 50 L Retic Count Sodium 133 L Anion Gap 7 L BUN 38 H Creatinine 2.0 H Random Glucose 205 H Calcium 8.2 L Ammonia Crossmatch See Detail 06/21/17 06/21/17 06/21/17 06:15 06:15 09:55 RBC Hgb Hct MCV MCH RDW Plt Count Retic Count 3.24 H Sodium Anion Gap BUN Creatinine Random Glucose Calcium Ammonia 46.53 H Crossmatch See Detail Active Medications Generic Name Dose Route Start Last Admin Trade Name Freq PRN Reason Stop Dose Admin Betamethasone Dipropionate 1 applic 06/18/17 13:00 06/21/17 09:26 Diprosone 0.05% Cream - TP 1 applic BID [facility] Administration Diazepam 5 mg 06/22/17 10:00 Valium - PO 06/22/17 10:01 DAILY [facility] Diazepam 10 mg 06/21/17 22:00 Valium - PO HS [facility] Folic Acid 1 mg 06/17/17 13:45 06/21/17 09:25 Folic Acid - PO 1 mg DAILY [facility] Administration Hydroxyzine HCl 25 mg 06/17/17 05:53 06/21/17 18:41 Atarax - PO 25 mg Q6H PRN Administration FOR ITCHING Lactulose 20 gm 06/17/17 21:45 06/21/17 09:23 Cephulac (Oral Use) PO 20 gm DAILY [facility] Administration Magnesium Oxide 400 mg 06/18/17 22:00 06/21/17 09:25 Mag-Ox - PO 400 mg BID [facility] Administration Midodrine 7.5 mg 06/19/17 09:00 06/21/17 18:24 Proamatine - PO 7.5 mg TID-MID [facility] Administration Multivitamins/Minerals/Vitamin C 1 tab 06/19/17 10:00 06/21/17 09:24 Tab-A-Vit - PO 1 tab DAILY [facility] Administration Nadolol 40 mg 06/17/17 06:00 06/21/17 09:26 Corgard - PO 40 mg DAILY [facility] Administration Octreotide Acetate 100 mcg 06/21/17 17:41 06/21/17 18:22 Sandostatin - SQ 100 mcg TID@0200,1000,1800 [facility] Administration Oxycodone HCl 5 mg 06/17/17 16:02 06/21/17 19:47 Roxicodone - PO 5 mg Q6H PRN Administration PAIN Pantoprazole Sodium 40 mg 06/17/17 06:00 06/21/17 09:24 Protonix - PO 40 mg DAILY [facility] Administration Rifaximin 550 mg 06/17/17 06:00 06/21/17 09:24 Xifaxan - PO 550 mg BID [facility] Administration Thiamine HCl 200 mg 06/19/17 10:00 06/21/17 09:24 Vitamin B1 Injection - IVPB 200 mg DAILY [facility] Administration Assessment/Plan Decompensated alcohol induced cirrhosis: ascites/encephalopathy/bleeding /renal failure anemia: multifactorial bleeding +/- hemolysis ( due to liver disease ? spur cell anemia)+ chronic disease LDH/darvin negative but haptoglobin low suggesting hemolysis from liver disease getting 1 unit PRBCS low platelets due to decompensated cirrhosis
[2017-06-22] MEDS: OCTREOTIDE ACETATE 100 MCG/1 ML SQ SCH ×2 (02:45→09:55)
[2017-06-22] MEDS: hydrOXYzine HCL 25 MG TABLET (FP) PO PRN ×3 (02:51→21:41)
[2017-06-22] MEDS: oxyCODONE HCL 5 MG TABLET PO PRN ×4 (02:51→23:52)
[2017-06-22 07:54] LABS: BASOPHIL 0.5 % (0-2.0); EOSINOPHIL 2.2 % (0-4.5); MCH 34.6 pg (25.7-33.7); MEAN CELL VOLUME 101.8 fl (80-96); MEAN PLT VOLUME 8.6 fl (7.5-11.1); NEUTROPHILS 67.2 % (42.8-82.8); PLATELET COUNT 64 K/MM3 (134-434); RDW 20.2 % (11.9-15.9); WHITE BLOOD COUNT 9.5 K/mm3 (4.0-10.0)
[2017-06-22 07:58] LABS: INR 1.99 (0.82-1.09); PROTHROMBIN TIME (PATIENT) 22.5 SEC (9.98-11.88)
[2017-06-22 08:01] LABS: ACTIVATED PTT 35.4 SECONDS (26.9-34.4)
[2017-06-22 08:27] LABS: ALK PHOS 124 U/L (45-117); ANION GAP 7 (8-16); CALCIUM 8.6 mg/dL (8.5-10.1); CO2 28 mmol/L (21-32); CREATININE 1.6 mg/dL (0.7-1.3); GLUCOSE,RANDOM 147 mg/dL (74-106); MAGNESIUM 2.2 mg/dL (1.8-2.4); PHOSPHOROUS 3.2 mg/dL (2.5-4.9); SGOT/AST 39 U/L (15-37); SGPT/ALT 21 U/L (12-78); TOT PROT 8.4 g/dl (6.4-8.2)
[2017-06-22] MEDS ORDERED: NADOLOL 20 MG TABLET (FP) ONE (09:10)
[2017-06-22] MEDS ORDERED: PT OWN MED DRAWER 7, Y5N ONE ×2 (09:11→21:24)
[2017-06-22] MEDS: LACTULOSE 20 GM/30 ML UDC (FOR ORAL USE ONLY) PO SCH (09:52)
[2017-06-22] MEDS: PANTOPRAZOLE 40 MG TABLET (FP) PO SCH (09:52)
[2017-06-22] MEDS: MAGNESIUM OXIDE 400 MG TABLET (FP) PO SCH ×2 (09:52→21:40)
[2017-06-22] MEDS: NADOLOL 40 MG TABLET (FP) PO SCH (09:53)
[2017-06-22] MEDS: MULTIVITAMINS (DAILY MVI) TABLET (FP) PO SCH (09:53)
[2017-06-22] MEDS: FOLIC ACID 1 MG TABLET (FP) PO SCH (09:53)
[2017-06-22] MEDS: RIFAXIMIN 550 MG TABLET (UD) PO SCH ×2 (09:54→21:40)
[2017-06-22] MEDS: BETAMETHASONE DIPR 0.05% CREAM 15 GM TUBE TP SCH ×2 (09:55→21:42)
[2017-06-22] MEDS: MIDODRINE HCL 5 MG TABLET PO SCH ×3 (09:55→17:41)
[2017-06-22] MEDS ORDERED: diazePAM 5 MG TABLET PO SCH (10:00)
--- NOTE | 2017-06-22 10:55 | PN ---
Progress Note (short form) - Note Progress Note: Seen and examined received PRBC yesterday He says his psoriasis is bothering him. He denies SOB. chest pain Cor: RSR, No murmurs, No gallops Lungs: Clear to P&A Abd: Soft, Normal bowel sounds, No organomegaly Ext:No significant edema Skin: +changes for psoriasis. +edema Temp Pulse Resp BP Pulse Ox 98.4 F 73 18 143/79 99 06/22/17 08:58 06/22/17 08:58 06/22/17 08:58 06/22/17 08:58 06/21/17 20:30 CBC, BMP 06/22/17 06:00 06/22/17 06:00 Current Medications Generic Name Dose Route Start Last Admin Trade Name Freq PRN Reason Stop Dose Admin Betamethasone Dipropionate 1 applic 06/18/17 13:00 06/22/17 09:55 Diprosone 0.05% Cream - TP 1 applic BID [facility] Administration Diazepam 10 mg 06/21/17 22:00 06/21/17 23:19 Valium - PO 10 mg HS [facility] Administration Folic Acid 1 mg 06/17/17 13:45 06/22/17 09:53 Folic Acid - PO 1 mg DAILY [facility] Administration Hydroxyzine HCl 25 mg 06/17/17 05:53 06/22/17 02:51 Atarax - PO 25 mg Q6H PRN Administration FOR ITCHING Lactulose 20 gm 06/17/17 21:45 06/22/17 09:52 Cephulac (Oral Use) PO 20 gm DAILY [facility] Administration Magnesium Oxide 400 mg 06/18/17 22:00 06/22/17 09:52 Mag-Ox - PO 400 mg BID [facility] Administration Midodrine 7.5 mg 06/19/17 09:00 06/22/17 09:55 Proamatine - PO 7.5 mg TID-MID [facility] Administration Multivitamins/Minerals/Vitamin C 1 tab 06/19/17 10:00 06/22/17 09:53 Tab-A-Vit - PO 1 tab DAILY [facility] Administration Nadolol 40 mg 06/17/17 06:00 06/22/17 09:53 Corgard - PO 40 mg DAILY [facility] Administration Octreotide Acetate 100 mcg 06/21/17 17:41 06/22/17 09:55 Sandostatin - SQ 100 mcg TID@0200,1000,1800 [facility] Administration Oxycodone HCl 5 mg 06/17/17 16:02 06/22/17 09:53 Roxicodone - PO 5 mg Q6H PRN Administration PAIN Pantoprazole Sodium 40 mg 06/17/17 06:00 06/22/17 09:52 Protonix - PO 40 mg DAILY [facility] Administration Rifaximin 550 mg 06/17/17 06:00 06/22/17 09:54 Xifaxan - PO 550 mg BID [facility] Administration Thiamine HCl 200 mg 06/19/17 10:00 06/21/17 09:24 Vitamin B1 Injection - IVPB 200 mg DAILY [facility] Administration 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
[2017-06-22] MEDS: THIAMINE HCL 200 MG/2 ML VIAL IVPB SCH (11:18)
[2017-06-22] MEDS ORDERED: THIAMINE HCL 200 MG/2 ML VIAL IM SCH (11:30)
[2017-06-22 11:59] LABS: BASOPHIL 0.2 % (0-2.0); MCH 34.5 pg (25.7-33.7); MCHC 33.4 g/dl (32.0-35.9); MEAN CELL VOLUME 103.3 fl (80-96); MEAN PLT VOLUME 8.4 fl (7.5-11.1); NEUTROPHILS 68.7 % (42.8-82.8); PLATELET COUNT 58 K/MM3 (134-434); RDW 20.5 % (11.9-15.9); WHITE BLOOD COUNT 9.1 K/mm3 (4.0-10.0)
[2017-06-22] MEDS ORDERED: FUROSEMIDE 40 MG TABLET (FP) PO ONE (12:04)
--- NOTE | 2017-06-22 12:04 | PN ---
Progress Note (short form) - Note Progress Note: Renal follow up for PATRICIA Pt seen and examined at the bedside no acute complaints making urine legs remains swollen Vital Signs Temperature 98.4 F 06/22/17 08:58 Pulse Rate 73 06/22/17 08:58 Respiratory Rate 18 06/22/17 08:58 Blood Pressure 143/79 06/22/17 08:58 O2 Sat by Pulse Oximetry (%) 99 06/21/17 20:30 Intake & Output 06/19/17 06/20/17 06/21/17 06/22/17 23:59 23:59 23:59 23:59 Intake Total 1440 850 890 250 Output Total 1950 1300 Balance 1440 850 -1060 -1050 Weight 92.215 kg 94.211 kg 93.015 kg 94.574 kg NAD RRR CTA soft, NT, + ascities 2+ LE edema CBC, BMP 06/22/17 06:00 Current Medications Betamethasone Dipropionate (Diprosone 0.05% Cream -) 1 applic TP BID [facility] Last Admin: 06/22/17 09:55 Dose: 1 applic Diazepam (Valium -) 10 mg PO HS [facility] Last Admin: 06/21/17 23:19 Dose: 10 mg Folic Acid (Folic Acid -) 1 mg PO DAILY [facility] Last Admin: 06/22/17 09:53 Dose: 1 mg Hydroxyzine HCl (Atarax -) 25 mg PO Q6H PRN PRN Reason: FOR ITCHING Last Admin: 06/22/17 02:51 Dose: 25 mg Lactulose (Cephulac (Oral Use)) 20 gm PO DAILY [facility] Last Admin: 06/22/17 09:52 Dose: 20 gm Magnesium Oxide (Mag-Ox -) 400 mg PO BID [facility] Last Admin: 06/22/17 09:52 Dose: 400 mg Midodrine (Proamatine -) 7.5 mg PO TID-MID [facility] Last Admin: 06/22/17 09:55 Dose: 7.5 mg Multivitamins/Minerals/Vitamin C (Tab-A-Vit -) 1 tab PO DAILY [facility] Last Admin: 06/22/17 09:53 Dose: 1 tab Nadolol (Corgard -) 40 mg PO DAILY [facility] Last Admin: 06/22/17 09:53 Dose: 40 mg Oxycodone HCl (Roxicodone -) 5 mg PO Q6H PRN PRN Reason: PAIN Last Admin: 06/22/17 09:53 Dose: 5 mg Pantoprazole Sodium (Protonix -) 40 mg PO DAILY [facility] Last Admin: 06/22/17 09:52 Dose: 40 mg Rifaximin (Xifaxan -) 550 mg PO BID [facility] Last Admin: 06/22/17 09:54 Dose: 550 mg Thiamine HCl (Vitamin B1 Injection -) 200 mg IM DAILY [facility] Last Admin: 06/22/17 11:14 Dose: 200 mg 52 year old gentleman with PMhx of Alcoholic liver cirrhosis, Psoriasis, Hx of Mild CKD presented with weakness and fatigue and developed PATRICIA and hyponatremia during this admission. #Acute Renal Injury likely due to hemodynaic changes/renal hypoprofusion/HRS Renal function is improved today can d/c octreotide continue midodrine for now start Lasix 40mg PO Daily for management of edema Trend BUN/Cr #Hyponatremia from volume overload fluid restriction of 1.2 L #Alcoholic Liver cirrhosis supportive care #Elevated Lipase/Pancreatitis Gi following #Anemia Check iron studies transfuse for hgb less then 7 Prognosis is poor Ronaldo Gonzalez DO
--- NOTE | 2017-06-22 12:31 | DS ---
Physical Examination Vital Signs: Vital Signs Temperature 98.4 F 06/22/17 08:58 Pulse Rate 73 06/22/17 08:58 Respiratory Rate 18 06/22/17 08:58 Blood Pressure 143/79 06/22/17 08:58 O2 Sat by Pulse Oximetry (%) 99 06/21/17 20:30 Constitutional: Yes: Calm Eyes: Yes: Sclera Icterus Respiratory: Yes: CTA Bilaterally Gastrointestinal: Yes: Normal Bowel Sounds, Soft, Distention Edema: Yes Edema: LLE: 2+, RLE: 2+ Integumentary: Yes: Rash (psoaritic) Neurological: Yes: Alert, Oriented Labs: CBC, BMP 06/22/17 06:00 Discharge Summary Reason For Visit: HEPATIC CIRRHOSIS MIXED ANXIETY DEPRESSION Current Active Problems Depression with anxiety (Acute) Liver cirrhosis (Acute) Pancreatitis (Acute) Hospital Course: Patient is a 52 yo M with a significant PMHx of alcohol induced liver cirrhosis , alcoholic hepatitis, HTN, ascites, psoriasis, and chronic anemia, presented to the ED with generalized weakness and depression the last 3 weeks. He was on the transplant list a few months ago but is now off the list because he started drinking again in January. He drinks vodka daily and has had poor oral intake. His last detox was 1 year ago. He has been on his bed for the last week with decreased appetite. According to his he has had suicide ideations and has threatened to harm himself with a gun. He does not see a psychiatrist. He also complains of worsening of psoriasis that has spread on UE, LE, and [place]. Patient denies dyspnea, chest pain, dizziness, headaches, abdominal pain, and lightheadedness. per patient he has been feeling very weak,nauseous and tired he vomitted once in ER he was seen by psychiatrist no suicidal ideations noted in ER noted to have elevated WBC count and Ammonia level of 43 and high alcohol level History Source: Patient - Past Medical History Cardiovascular: Yes: HTN Gastrointestinal: Yes: Ascites Hepatobiliary: Yes: Cirrhosis (Alcohol induced, decompensated), Other (History of severe alcoholic hepatitis, hepatic encephalopathy) Musculoskeletal: Yes: Other (Cellulitis and tenosynovitis +/- osteomyelitis 3rd/ 4th digit of left hand) Dermatology: Yes: Cellulitis (of LE and of hand), Psoriasis in hospital: alcoholic pancreatits, with alcohol withdrawal: got valium detox hyponatremia, renal disorder, Acute renal insufficinency: diuretics held intially on octreotide and midodrine, fluid restriction 1.2 Litre,now lasix 40mg po dialy cirrhosis: stop alcohol intake, rifaximin,lactulose, nadalol, stop aldactone vailum 10mg po qhs for sleep Condition: Stable - Instructions Referrals: Prakash Ashley MD [Primary Care Provider] - Deshawn Bhakta MD [Staff Physician] - - Home Medications Comprehensive Discharge Medication List: Ambulatory Orders Thiamine HCl [Vitamin B1] 100 mg PO DAILY 12/21/16 Diazepam [Valium] 2 mg PO Q8H PRN #12 tablet MDD 2 06/02/17 Furosemide [Lasix] 80 mg PO BID #120 tab 06/02/17 Hydroxyzine HCl [Atarax -] 25 mg PO Q6H PRN #30 tablet 06/02/17 Magnesium Oxide [Mag-Ox -] 400 mg PO BID tablet 06/02/17 Nadolol 40 mg PO DAILY #30 tab 06/02/17 Oxycodone HCl 5 mg PO Q6H PRN #60 tab MDD 4 06/02/17 Pantoprazole Sodium [Protonix -] 40 mg PO BID #60 tab 06/02/17 Rifaximin [Xifaxan -] 550 mg PO BID #60 tablet 06/02/17 Spironolactone 50 mg PO BID #60 tab 06/02/17
--- NOTE | 2017-06-22 14:31 | PN ---
Progress Note, Physician Chief Complaint: patient got lasix today on midodrine spoke with renal plan to keep in inhouse for atleast another 24 hrs - Current Medication List Current Medications: Active Medications Betamethasone Dipropionate (Diprosone 0.05% Cream -) 1 applic TP BID [facility] Last Admin: 06/22/17 09:55 Dose: 1 applic Diazepam (Valium -) 10 mg PO HS [facility] Last Admin: 06/21/17 23:19 Dose: 10 mg Folic Acid (Folic Acid -) 1 mg PO DAILY [facility] Last Admin: 06/22/17 09:53 Dose: 1 mg Hydroxyzine HCl (Atarax -) 25 mg PO Q6H PRN PRN Reason: FOR ITCHING Last Admin: 06/22/17 13:54 Dose: 25 mg Lactulose (Cephulac (Oral Use)) 20 gm PO DAILY [facility] Last Admin: 06/22/17 09:52 Dose: 20 gm Magnesium Oxide (Mag-Ox -) 400 mg PO BID [facility] Last Admin: 06/22/17 09:52 Dose: 400 mg Midodrine (Proamatine -) 7.5 mg PO TID-MID [facility] Last Admin: 06/22/17 13:52 Dose: 7.5 mg Multivitamins/Minerals/Vitamin C (Tab-A-Vit -) 1 tab PO DAILY [facility] Last Admin: 06/22/17 09:53 Dose: 1 tab Nadolol (Corgard -) 40 mg PO DAILY [facility] Last Admin: 06/22/17 09:53 Dose: 40 mg Oxycodone HCl (Roxicodone -) 5 mg PO Q6H PRN PRN Reason: PAIN Last Admin: 06/22/17 09:53 Dose: 5 mg Pantoprazole Sodium (Protonix -) 40 mg PO DAILY [facility] Last Admin: 06/22/17 09:52 Dose: 40 mg Rifaximin (Xifaxan -) 550 mg PO BID [facility] Last Admin: 06/22/17 09:54 Dose: 550 mg - Objective Vital Signs: Vital Signs Temperature 97.6 F 06/22/17 14:10 Pulse Rate 75 06/22/17 14:10 Respiratory Rate 18 06/22/17 14:10 Blood Pressure 129/64 06/22/17 14:10 O2 Sat by Pulse Oximetry (%) 99 06/22/17 09:00 Constitutional: Yes: Calm Eyes: Yes: Sclera Icterus Cardiovascular: Yes: Regular Rate and Rhythm, S1, S2 Respiratory: Yes: CTA Bilaterally Gastrointestinal: Yes: Soft, Ascites Edema: Yes Neurological: Yes: Alert, Oriented Labs: CBC, BMP 06/22/17 11:30 06/22/17 06:00 INR, PTT INR 1.99 (0.82-1.09) H 06/22/17 06:00 Fibrinogen 125.0 mg/dL (238-498) L 06/22/17 06:00 Problem List - Problems (1) Acute kidney injury Assessment/Plan: renal function improving today octreotide stopped on midodrine got lasix today need to keep patient in hospital to monitor renal function with diuretic not ready for dc today Code(s): N17.9 - ACUTE KIDNEY FAILURE, UNSPECIFIED (2) Anemia Assessment/Plan: s/p prbc h/h improved Code(s): D64.9 - ANEMIA, UNSPECIFIED Qualifiers: Anemia type: unspecified type Qualified Code(s): D64.9 - Anemia, unspecified (3) Hyponatremia Assessment/Plan: na is improving slowing now 134 fluid restriction 1.2 L Code(s): E87.1 - HYPO-OSMOLALITY AND HYPONATREMIA (4) Liver cirrhosis Assessment/Plan: lactulose and rifaximin Code(s): K74.60 - UNSPECIFIED CIRRHOSIS OF LIVER Qualifiers: Hepatic cirrhosis type: alcoholic cirrhosis Ascites presence: with ascites Qualified Code(s): K70.31 - Alcoholic cirrhosis of liver with ascites (5) Alcohol dependence with uncomplicated withdrawal Assessment/Plan: detox with valium completed now valium at night folate thiamine po patient needs inpatient rehab after this hospital admission he says his is looking for a facility [facility] Code(s): F10.230 - ALCOHOL DEPENDENCE WITH WITHDRAWAL, UNCOMPLICATED (6) Leukocytosis Assessment/Plan: now improved Code(s): D72.829 - ELEVATED WHITE BLOOD CELL COUNT, UNSPECIFIED Qualifiers: Leukocytosis type: unspecified Qualified Code(s): D72.829 - Elevated white blood cell count, unspecified (7) Leg edema Assessment/Plan: duiretic stop Code(s): R60.0 - LOCALIZED EDEMA (8) Psoriasis Assessment/Plan: patient uses clobestasol as outpatient the equivalent ordered in hospital atarax for itching Code(s): L40.9 - PSORIASIS, UNSPECIFIED
[2017-06-22] MEDS: diazePAM 5 MG TABLET PO SCH (21:39)
[2017-06-23] MEDS ORDERED: PT OWN MED DRAWER 7, Y5N ONE ×2 (07:01→09:12)
[2017-06-23] MEDS: oxyCODONE HCL 5 MG TABLET PO PRN (07:02)
[2017-06-23] MEDS: hydrOXYzine HCL 25 MG TABLET (FP) PO PRN (07:02)
[2017-06-23 07:11] LABS: MCH 35.6 pg (25.7-33.7); MCHC 34.3 g/dl (32.0-35.9); MEAN CELL VOLUME 103.9 fl (80-96); MEAN PLT VOLUME 8.2 fl (7.5-11.1); RDW 19.8 % (11.9-15.9); WHITE BLOOD COUNT 10.6 K/mm3 (4.0-10.0)
[2017-06-23 07:28] LABS: INR 1.97 (0.82-1.09); PROTHROMBIN TIME (PATIENT) 22.3 SEC (9.98-11.88)
[2017-06-23 07:40] LABS: ANION GAP 6 (8-16); CALCIUM 8.5 mg/dL (8.5-10.1); CO2 29 mmol/L (21-32); CREATININE 1.5 mg/dL (0.7-1.3); GLUCOSE,RANDOM 158 mg/dL (74-106); LDH 231 U/L (87-241); MAGNESIUM 2.1 mg/dL (1.8-2.4); PHOSPHOROUS 3.4 mg/dL (2.5-4.9)
[2017-06-23 08:51] LABS: PLATELET COUNT 68 K/MM3 (134-434)
[2017-06-23] MEDS ORDERED: NADOLOL 20 MG TABLET (FP) ONE (09:12)
[2017-06-23] MEDS: FOLIC ACID 1 MG TABLET (FP) PO SCH (09:14)
[2017-06-23] MEDS: LACTULOSE 20 GM/30 ML UDC (FOR ORAL USE ONLY) PO SCH (09:14)
[2017-06-23] MEDS: NADOLOL 40 MG TABLET (FP) PO SCH (09:15)
[2017-06-23] MEDS: MAGNESIUM OXIDE 400 MG TABLET (FP) PO SCH (09:15)
[2017-06-23] MEDS: PANTOPRAZOLE 40 MG TABLET (FP) PO SCH (09:15)
[2017-06-23] MEDS: MULTIVITAMINS (DAILY MVI) TABLET (FP) PO SCH (09:15)
[2017-06-23] MEDS: RIFAXIMIN 550 MG TABLET (UD) PO SCH (09:15)
[2017-06-23] MEDS ORDERED: MIDODRINE HCL 2.5 MG TABLET PO SCH (10:00)
[2017-06-23] MEDS: BETAMETHASONE DIPR 0.05% CREAM 15 GM TUBE TP SCH (11:13)
--- NOTE | 2017-06-23 12:38 | DS ---
Physical Examination Vital Signs: Vital Signs Temperature 97.8 F 06/23/17 09:00 Pulse Rate 76 06/23/17 09:00 Respiratory Rate 18 06/23/17 09:00 Blood Pressure 151/80 06/23/17 09:00 O2 Sat by Pulse Oximetry (%) 100 06/23/17 09:00 Labs: CBC, BMP 06/23/17 06:00 06/23/17 06:00 Discharge Summary Reason For Visit: HEPATIC CIRRHOSIS MIXED ANXIETY DEPRESSION Current Active Problems Depression with anxiety (Acute) Liver cirrhosis (Acute) Pancreatitis (Acute) Condition: Stable - Instructions Diet, Activity, Other Instructions: fluid restriction 1.2 L stop aldaactone lasix 40mg po dialy FU with PMD In one week for blood work outpatient rehab Referrals: Prakash Ashley MD [Primary Care Provider] - Deshawn Bhakta MD [Staff Physician] - - Home Medications Comprehensive Discharge Medication List: Ambulatory Orders Thiamine HCl [Vitamin B1] 100 mg PO DAILY 12/21/16 Hydroxyzine HCl [Atarax -] 25 mg PO Q6H PRN #30 tablet 06/02/17 Magnesium Oxide [Mag-Ox -] 400 mg PO BID tablet 06/02/17 Nadolol 40 mg PO DAILY #30 tab 06/02/17 Pantoprazole Sodium [Protonix -] 40 mg PO BID #60 tab 06/02/17 Rifaximin [Xifaxan -] 550 mg PO BID #60 tablet 06/02/17 Diazepam [Valium] 10 mg PO HS #7 tablet MDD 1 06/22/17 Furosemide [Lasix] 40 mg PO DAILY #30 tablet MDD 1 06/22/17
--- NOTE | 2017-06-23 13:46 | PN ---
Progress Note (short form) - Note Progress Note: Renal follow up for PATRICIA Pt seen and examined at the bedside no acute complaints Vital Signs Temperature 97.8 F 06/23/17 09:00 Pulse Rate 76 06/23/17 09:00 Respiratory Rate 18 06/23/17 09:00 Blood Pressure 151/80 06/23/17 09:00 O2 Sat by Pulse Oximetry (%) 100 06/23/17 09:00 Intake & Output 06/20/17 06/21/17 06/22/17 06/23/17 23:59 23:59 23:59 23:59 Intake Total 850 890 250 Output Total 1950 2450 600 Balance 850 -1060 -2200 -600 Weight 94.211 kg 93.015 kg 94.574 kg 94.71 kg NAD RRR CTA soft, NT, + ascities 2+ LE edema CBC, BMP 06/22/17 06:00 Current Medications Betamethasone Dipropionate (Diprosone 0.05% Cream -) 1 applic TP BID [facility] Last Admin: 06/22/17 09:55 Dose: 1 applic Diazepam (Valium -) 10 mg PO HS [facility] Last Admin: 06/21/17 23:19 Dose: 10 mg Folic Acid (Folic Acid -) 1 mg PO DAILY [facility] Last Admin: 06/22/17 09:53 Dose: 1 mg Hydroxyzine HCl (Atarax -) 25 mg PO Q6H PRN PRN Reason: FOR ITCHING Last Admin: 06/22/17 02:51 Dose: 25 mg Lactulose (Cephulac (Oral Use)) 20 gm PO DAILY [facility] Last Admin: 06/22/17 09:52 Dose: 20 gm Magnesium Oxide (Mag-Ox -) 400 mg PO BID [facility] Last Admin: 06/22/17 09:52 Dose: 400 mg Midodrine (Proamatine -) 7.5 mg PO TID-MID [facility] Last Admin: 06/22/17 09:55 Dose: 7.5 mg Multivitamins/Minerals/Vitamin C (Tab-A-Vit -) 1 tab PO DAILY [facility] Last Admin: 06/22/17 09:53 Dose: 1 tab Nadolol (Corgard -) 40 mg PO DAILY [facility] Last Admin: 06/22/17 09:53 Dose: 40 mg Oxycodone HCl (Roxicodone -) 5 mg PO Q6H PRN PRN Reason: PAIN Last Admin: 06/22/17 09:53 Dose: 5 mg Pantoprazole Sodium (Protonix -) 40 mg PO DAILY [facility] Last Admin: 06/22/17 09:52 Dose: 40 mg Rifaximin (Xifaxan -) 550 mg PO BID [facility] Last Admin: 06/22/17 09:54 Dose: 550 mg Thiamine HCl (Vitamin B1 Injection -) 200 mg IM DAILY [facility] Last Admin: 06/22/17 11:14 Dose: 200 mg 52 year old gentleman with PMhx of Alcoholic liver cirrhosis, Psoriasis, Hx of Mild CKD presented with weakness and fatigue and developed PATRICIA and hyponatremia during this admission. #Acute Renal Injury likely due to hemodynaic changes/renal hypoprofusion/HRS Renal function stable can d/c midodrine continue Lasix 40mg daily low salt diet to follow up in our office for CKD management #Hyponatremia from volume overload fluid restriction of 1.2 L #Alcoholic Liver cirrhosis supportive care Ronaldo Gonzalez DO
[2017-06-23 15:22] VITALS: BP 145/67; PULSE 72; TEMP 96.9
== END 2017-06-23 16:41 | disposition home or self-care (01) | DRG 432 ==
LOC: JER 19:07 → JERBED 06-17 01:48 → UNDOADMIN 06-17 01:54 → J7W 06-17 15:05
PROVIDERS: ADMIT Family Medicine; ATTEND Family Medicine
PROC: HZ89ZZZ Medication Management for Substance Abuse Treatment, Other Replacement Medication (ICD-10-PCS; principal; 2017-06-18)
PROC: 30233H1 Transfusion of Nonautologous Whole Blood into Peripheral Vein, Percutaneous Approach (ICD-10-PCS; 2017-06-21)
DX: K70.31 Alcoholic cirrhosis of liver with ascites (principal); K85.90 Acute pancreatitis without necrosis or infection, unspecified; R45.851 Suicidal ideations; F10.230 Alcohol dependence with withdrawal, uncomplicated; E87.1 Hypo-osmolality and hyponatremia; N17.9 Acute kidney failure, unspecified; K72.90 Hepatic failure, unspecified without coma; K70.10 Alcoholic hepatitis without ascites; I10 Essential (primary) hypertension; L40.9 Psoriasis, unspecified; D64.9 Anemia, unspecified; J44.9 Chronic obstructive pulmonary disease, unspecified; F10.220 Alcohol dependence with intoxication, uncomplicated; Y90.6 Blood alcohol level of 120-199 mg/100 ml; M54.17 Radiculopathy, lumbosacral region; E83.42 Hypomagnesemia; N28.9 Disorder of kidney and ureter, unspecified; D63.8 Anemia in other chronic diseases classified elsewhere; R73.9 Hyperglycemia, unspecified; F41.8 Other specified anxiety disorders; R60.0 Localized edema
CPT/HCPCS: 36415; 36430; 71010-TC; 80048; 80053; 80061; 80076; 80307; 81003; 81015; 82140; 82150; 82248; 82570; 82607; 82728; 82747; 83010; 83540; 83550; 83615; 83690; 83721; 83735; 84100; 84156; 84300; 84540; 85014; 85025; 85027; 85044; 85384; 85610; 85651; 85730; 86850; 86880; 86900; 86901; 86922; 93005; 93010; 99284-25; P9038; P9047; P9058

== ENCOUNTER 2017-07-02 13:25 | Emergency (ER) | payer BC ==
[2017-07-02 13:51] VITALS: BMI 30.7
[2017-07-02] MEDS ORDERED: SODIUM CHLORIDE 1,000 ML IV STA (13:54)
[2017-07-02] MEDS ORDERED: FOLIC ACID INJECTION - 1 MG, THIAMINE HCL 100 MG, MULTIVIT INJECTION ADULT 10 ML in SOD... IVPB ONE (13:59)
--- NOTE | 2017-07-02 14:24 | PDOC ---
History of Present Illness - General Chief Complaint: Syncope/Near Syncope Stated Complaint: FALL Time Seen by Provider: 07/02/17 13:37 History Source: Patient - History of Present Illness Associated Symptoms: denies: nausea/vomiting Past History - Past Medical History Allergies/Adverse Reactions: Allergies Allergy/AdvReac Type Severity Reaction Status Date / Time No Known Allergies Allergy Verified 06/16/17 19:21 Home Medications: Ambulatory Orders Thiamine HCl [Vitamin B1] 100 mg PO DAILY 12/21/16 Magnesium Oxide [Mag-Ox -] 400 mg PO BID tablet 06/02/17 Betamethasone Dipropionate [Diprosone 0.05% Cream -] 1 applic TP BID #60 gr Folic Acid - 1 mg PO DAILY #30 tablet 06/23/17 Furosemide [Lasix -] 40 mg PO DAILY #30 tablet 06/23/17 Hydroxyzine HCl [Atarax -] 25 mg PO Q6H PRN #60 tablet 06/23/17 Lactulose (Oral Use) [Cephulac -] 20 gm PO DAILY #900 ml 06/23/17 Nadolol [Corgard -] 40 mg PO DAILY #30 tablet 06/23/17 Pantoprazole Sodium [Protonix -] 40 mg PO BID #60 tab 06/23/17 Rifaximin [Xifaxan -] 550 mg PO BID #60 tablet 06/23/17 Diazepam [Valium] 10 mg PO HS #5 tablet MDD 1 06/24/17 Oxycodone HCl [Oxaydo] 5 mg PO QID #15 tablet.orl MDD 4 06/24/17 Anemia: Yes COPD: No Disorders: Yes (? esrd) HTN: Yes Liver Disease: Yes (cirrhosis) Psychiatric Problems: Yes (depression) Thyroid Disease: Yes (psoriasis) - Suicide/Smoking/Psychosocial Hx Smoking History: Never smoked Have you smoked in the past 12 months: No Information on smoking cessation initiated: No Hx Alcohol Use: Yes Drug/Substance Use Hx: No Substance Use Type: Alcohol Hx Substance Use Treatment: Yes (detoxed last hospital admission) Review of Systems - Review of Systems Constitutional: No: Chills, Fever Respiratory: No: Shortness of Breath Cardiac (ROS): No: Chest Pain ABD/GI: No: Nausea, Vomiting Neurological: No: Headache *Physical Exam - Vital Signs Last Vital Signs Temp Pulse Resp BP Pulse Ox 97.6 F 78 16 131/62 97 07/02/17 13:46 07/02/17 13:54 07/02/17 13:46 07/02/17 13:46 07/02/17 13:54 - Physical Exam General Appearance: Yes: Appropriately Dressed. No: Apparent Distress HEENT: positive: Normal Voice, Scleral Icterus (R), Scleral Icterus (L) Neck: positive: Supple, Other (linear cutaneous lac along R side of neck, no midline ttp, FROMI). negative: Tender Respiratory/Chest: positive: Lungs Clear, Normal Breath Sounds. negative: Respiratory Distress Cardiovascular: positive: Regular Rate, S1, S2 Gastrointestinal/Abdominal: positive: Soft. negative: Tender Extremity: positive: Normal Inspection Integumentary: positive: Dry, Warm Neurologic: positive: Fully Oriented, Alert, Normal Mood/Affect ED Treatment Course - LABORATORY CBC & Chemistry Diagram: 07/02/17 14:01 07/02/17 14:01 - RADIOLOGY Radiology Studies Ordered: Category Date Time Status HEAD CT WITHOUT CONTRAST [CT] Stat CT Scan 07/02/17 13:54 Ordered CHEST X-RAY PORTABLE* [RAD] Stat Radiology 07/02/17 13:53 Ordered Medical Decision Making - Medical Decision Making 07/02/17 14:24 52-year-old male history of depression, alcohol cirrhosis (C/B ascites, varices , encephalopathy), recently dropped from transplant list as pt continues to drink, status post rehabilitation one year ago, hypertension, brought in by for fall in setting of alcohol intake today. As per , patient became intoxicated today and was shortly found on the floor in the corner of the bathroom. Patient told that after drinking, he lost balance and fell. Denies any LOC, headache, neck pain, dizziness, nausea, vomiting or visual changes to me at this time. Denies any shortness of breath prior to fall. Has abrasion to right side of neck. Otherwise, denies any neck pain or other injuries to me at this time. See exam Fall w/ head injury in setting of ETOH intoxication Able to clear cspine in ED No need for repair to cutaneous lac to R neck -CT head -labs -tetanus UTD -dispo pending 07/02/17 15:41 Labs baseline and EKG and CT unremarkable. Banana bag in progress. Will await sobriety and reassess. Upon discharge, states plan is to check patient into a private rehabilitation Center. States she does not want patient at [facility] 07/02/17 17:33 Pt more sober now, tolerating po and steady on his feet. Stable for discharge in care of 07/02/17 17:36 *DC/Admit/Observation/Transfer Diagnosis at time of Disposition: Alcohol intoxication Qualifiers: Complication of substance-induced condition: uncomplicated Qualified Code(s): F10.920 - Alcohol use, unspecified with intoxication, uncomplicated Head injury Qualifiers: Encounter type: initial encounter Qualified Code(s): S09.90XA - Unspecified injury of head, initial encounter - Discharge Dispostion Disposition: HOME Condition at time of disposition: Improved - Referrals Referrals: Prakash Ashley MD [Primary Care Provider] - - Patient Instructions Printed Discharge Instructions: DI for Closed Head Injury Additional Instructions: Strongly consider alcohol cessation. Please follow up with your PMD - Post Discharge Activity
[2017-07-02 14:34] LABS: BASOPHIL 0.9 % (0-2.0); EOSINOPHIL 1.3 % (0-4.5); MCH 34.4 pg (25.7-33.7); MCHC 33.3 g/dl (32.0-35.9); MEAN CELL VOLUME 103.2 fl (80-96); MEAN PLT VOLUME 8.6 fl (7.5-11.1); NEUTROPHILS 62.9 % (42.8-82.8); PLATELET COUNT 93 K/MM3 (134-434); RDW 17.3 % (11.9-15.9); WHITE BLOOD COUNT 12.4 K/mm3 (4.0-10.0)
[2017-07-02 14:54] LABS: ALBUMIN 2.9 g/dl (3.4-5.0); ANION GAP 13 (8-16); BILIRUBIN,TOTAL 2.9 mg/dL (0.2-1.0); CALCIUM 9.2 mg/dL (8.5-10.1); CO2 32 mmol/L (21-32); CREATININE 1.5 mg/dL (0.7-1.3); GLUCOSE,RANDOM 212 mg/dL (74-106); SGOT/AST 62 U/L (15-37); SGPT/ALT 27 U/L (12-78); TOT PROT 8.6 g/dl (6.4-8.2)
[2017-07-02 14:57] LABS: ALK PHOS 102 U/L (45-117); CPK 66 IU/L (39-308); TROPONIN I 0.02 ng/ml (0.00-0.05)
[2017-07-02 15:31] LABS: URINE APPEARANCE CLEAR; URINE BILIRUBIN NEGATIVE (NEGATIVE); URINE BLOOD 3+ (NEGATIVE); URINE COLOR LTYELLOW; URINE GLUCOSE (UA) NEGATIVE (NEGATIVE); URINE KETONE NEGATIVE (NEGATIVE); URINE NITRITE NEGATIVE (NEGATIVE); URINE PROTEIN NEGATIVE (NEGATIVE); URINE UROBILINOGEN NEGATIVE mg/dL (0.2-1.0)
[2017-07-02 15:33] LABS: URINE HYALINE CAST 2 /lpf; URINE MUCUS RARE; URINE RBC 26 /hpf (0-3); URINE WBC <1 /hpf (3-5); YEAST RARE
[2017-07-02 17:21] VITALS: BP 122/67; PULSE 77; TEMP 97.7
[2017-07-02 19:15] LABS: URINE LEUK ESTERASE Negative (NEGATIVE)
--- NOTE | 2017-07-03 09:23 | EKG ---
Test Reason : Blood Pressure : / mmHG Vent. Rate : 076 BPM Atrial Rate : 076 BPM P-R Int : 158 ms QRS Dur : 102 ms QT Int : 426 ms P-R-T Axes : 044 010 026 degrees QTc Int : 479 ms NORMAL SINUS RHYTHM POSSIBLE LEFT ATRIAL ENLARGEMENT NONSPECIFIC ST ABNORMALITY ABNORMAL ECG WHEN COMPARED WITH ECG OF 17-JUN-2017 01:51, VENT. RATE HAS DECREASED BY 42 BPM Confirmed by JUAN LUIS WOODWARD, SYDNEE ([id number]) on 07/03/2017 9:22:51 AM Referred By: Confirmed By:SYDNEE MCKNIGHT MD
== END 2017-07-02 17:30 | disposition home or self-care (01) ==
LOC: JER 13:25
PROC: 3E0337Z Introduction of Electrolytic and Water Balance Substance into Peripheral Vein, Percutaneous Approach (ICD-10-PCS; principal; 2017-07-02)
DX: F10.120 Alcohol abuse with intoxication, uncomplicated (principal); S09.8XXA Other specified injuries of head, initial encounter; S11.81XA Laceration without foreign body of other specified part of neck, initial encounter; W18.39XA Other fall on same level, initial encounter; Y93.89 Activity, other specified; Y92.018 Other place in single-family (private) house as the place of occurrence of the external cause; Y90.8 Blood alcohol level of 240 mg/100 ml or more; I10 Essential (primary) hypertension; L40.9 Psoriasis, unspecified; N28.89 Other specified disorders of kidney and ureter
CPT/HCPCS: 36415; 70450-TC; 71010-TC; 80053; 80307; 81003; 81015; 82140; 82550; 83690; 84484; 85025; 93005; 93010; 99285-25

== ENCOUNTER 2017-07-05 14:38 | Inpatient (IN) | payer BC ==
[2017-07-05] MEDS ORDERED: FOLIC ACID INJECTION - 1 MG, THIAMINE HCL 100 MG, MULTIVIT INJECTION ADULT 10 ML in SOD... IVPB ONE (15:22)
--- NOTE | 2017-07-05 15:29 | PDOC ---
History of Present Illness - General Chief Complaint: Altered Mental Status Stated Complaint: ALTERED MENTAL Time Seen by Provider: 07/05/17 15:16 History Source: Patient, Family - History of Present Illness Timing/Duration: 1-3 hours Associated Symptoms: denies: chest pain, headaches, nausea/vomiting, shortness of breath Past History - Past Medical History Allergies/Adverse Reactions: Allergies Allergy/AdvReac Type Severity Reaction Status Date / Time No Known Allergies Allergy Verified 07/05/17 15:14 Home Medications: Ambulatory Orders Thiamine HCl [Vitamin B1] 100 mg PO DAILY 12/21/16 Magnesium Oxide [Mag-Ox -] 400 mg PO BID tablet 06/02/17 Betamethasone Dipropionate [Diprosone 0.05% Cream -] 1 applic TP BID #60 gr Folic Acid - 1 mg PO DAILY #30 tablet 06/23/17 Furosemide [Lasix -] 40 mg PO DAILY #30 tablet 06/23/17 Hydroxyzine HCl [Atarax -] 25 mg PO Q6H PRN #60 tablet 06/23/17 Lactulose (Oral Use) [Cephulac -] 20 gm PO DAILY #900 ml 06/23/17 Nadolol [Corgard -] 40 mg PO DAILY #30 tablet 06/23/17 Pantoprazole Sodium [Protonix -] 40 mg PO BID #60 tab 06/23/17 Rifaximin [Xifaxan -] 550 mg PO BID #60 tablet 06/23/17 Diazepam [Valium] 10 mg PO HS #5 tablet MDD 1 06/24/17 Oxycodone HCl [Oxaydo] 5 mg PO QID #15 tablet.orl MDD 4 06/24/17 Anemia: Yes COPD: No DVT: No Disorders: Yes (? esrd) HTN: Yes Liver Disease: Yes (cirrhosis) Psychiatric Problems: Yes (depression) Thyroid Disease: Yes (psoriasis) - Suicide/Smoking/Psychosocial Hx Smoking History: Never smoked Have you smoked in the past 12 months: No Information on smoking cessation initiated: No Hx Alcohol Use: Yes Drug/Substance Use Hx: No Substance Use Type: Alcohol Hx Substance Use Treatment: Yes (detoxed last hospital admission) Review of Systems - Review of Systems Constitutional: No: Chills, Fever Respiratory: No: Shortness of Breath Cardiac (ROS): No: Chest Pain Neurological: No: Headache, Dizziness *Physical Exam - Vital Signs Last Vital Signs Temp Pulse Resp BP Pulse Ox 97.7 F 93 H 18 146/74 95 07/05/17 14:50 07/05/17 14:50 07/05/17 14:50 07/05/17 14:50 07/05/17 14:50 - Physical Exam General Appearance: Yes: Appropriately Dressed. No: Apparent Distress HEENT: positive: Normal Voice, Scleral Icterus (R), Scleral Icterus (L) Neck: positive: Supple. negative: Tender Respiratory/Chest: positive: Lungs Clear, Normal Breath Sounds. negative: Respiratory Distress Cardiovascular: positive: Regular Rate, S1, S2 Gastrointestinal/Abdominal: positive: Soft. negative: Tender Extremity: positive: Pedal Edema (b/l w/ venousstasis changes) Integumentary: positive: Dry, Warm Neurologic: positive: Fully Oriented, Alert ED Treatment Course - LABORATORY CBC & Chemistry Diagram: 07/05/17 15:42 07/05/17 15:42 - RADIOLOGY Radiology Studies Ordered: Category Date Time Status HEAD CT WITHOUT CONTRAST [CT] Stat CT Scan 07/05/17 15:22 Ordered CHEST X-RAY PORTABLE* [RAD] Stat Radiology 07/05/17 15:21 Ordered Medical Decision Making - Medical Decision Making 07/05/17 15:22 52-year-old male history of depression, alcohol cirrhosis complicated by ascites , varices and encephalopathy,recently taken off transplant list as patient continues to drink, status post rehabilitation over one year ago, hypertension, brought in by for fall in setting of alcohol intake today. Of note, I saw patient for exact same thing [address] was normal. Labs were baseline and patient was discharged in care of family after a period of observation in the ED were patient sobered up. Patient does not remember details of fall but does admit to drinking today. states her niece found patient lying on the floor an hour or 2 ago. Patient denying any pain at this time and is oriented 3. No GODWIN, dizziness, visual changes, focal weakness, CP, SOB, neck or back pain. As per , patient and family wants patient to go to a detox facility but not to [facility]. States she has a facility in mind and that she contacted Dr Ashley who wants pt admitted to be medically tuned up prior to being transferred to a detox facility see exam Fall in setting of ETOH abuse Chronically ill but stable, alert and oriented x 3 No e/o serious injuries on exam Not on blood thinners -CT head -ekg -labs -discuss dispo w/ PMD as family requesting outside detox as pt unsafe at home given continued ETOH use and frequent falls 07/05/17 15:30 07/05/17 15:55 Case discussed with staff of , plan is to admit patient to observation for dehydration with plan to transfer patient to detox in the a.m. geological manager aware 07/05/17 16:46 *DC/Admit/Observation/Transfer Diagnosis at time of Disposition: Dehydration Head injury Qualifiers: Encounter type: initial encounter Qualified Code(s): S09.90XA - Unspecified injury of head, initial encounter Alcoholic cirrhosis Qualifiers: Ascites presence: with ascites Qualified Code(s): K70.31 - Alcoholic cirrhosis of liver with ascites - Discharge Dispostion Condition at time of disposition: Fair Admit: Yes - Referrals - Patient Instructions - Post Discharge Activity
--- NOTE | 2017-07-05 15:43 | PDOC ---
*Physical Exam - Vital Signs Last Vital Signs Temp Pulse Resp BP Pulse Ox 97.7 F 93 H 18 146/74 95 07/05/17 14:50 07/05/17 14:50 07/05/17 14:50 07/05/17 14:50 07/05/17 14:50 Medical Decision Making - Medical Decision Making 07/05/17 15:39 Patient seen and evaluated with the nurse practitioner. I agree with the overall evaluation, assessment, and management with the following summary of visit: 52-year-old male with history of chronic alcoholism, worsening ascites presents for reevaluation in the setting of fall today. Exam as noted, neurologically nonfocal Brought here placement in detox facility but requiring medical optimization. + head injury in known alcoholic, neuro intact. no evidence for infectious process at this time. labs ct head Admit to Dr. Ashley, family refusing [facility] and will need transfer to separate detox *DC/Admit/Observation/Transfer Diagnosis at time of Disposition: Alcohol dependence with uncomplicated withdrawal Head injury Qualifiers: Encounter type: initial encounter Qualified Code(s): S09.90XA - Unspecified injury of head, initial encounter Alcoholic cirrhosis Qualifiers: Ascites presence: with ascites Qualified Code(s): K70.31 - Alcoholic cirrhosis of liver with ascites - Discharge Dispostion Condition at time of disposition: Fair - Referrals - Patient Instructions - Post Discharge Activity
[2017-07-05 15:54] LABS: BASO % 0.8 % (0-2.0); EOS % 2.2 % (0-4.5); MCH 36.7 pg (25.7-33.7); MCHC 35.3 g/dl (32.0-35.9); MEAN CELL VOLUME 103.9 fl (80-96); MEAN PLT VOLUME 8.9 fl (7.5-11.1); NEUT % 67.5 % (42.8-82.8); RDW 16.9 % (11.9-15.9); WHITE BLOOD COUNT 12.7 K/mm3 (4.0-10.0)
--- NOTE | 2017-07-05 16:08 | EKG ---
Test Reason : Blood Pressure : / mmHG Vent. Rate : 091 BPM Atrial Rate : 091 BPM P-R Int : 170 ms QRS Dur : 098 ms QT Int : 404 ms P-R-T Axes : 046 009 022 degrees QTc Int : 496 ms NORMAL SINUS RHYTHM CANNOT RULE OUT INFERIOR INFARCT , AGE UNDETERMINED ABNORMAL ECG WHEN COMPARED WITH ECG OF 02-JUL-2017 13:57, NO SIGNIFICANT CHANGE WAS FOUND Confirmed by PAULINA MCKEON MD ([id number]) on 07/05/2017 4:07:39 PM Referred By: Confirmed By:PAULINA MCKEON MD
[2017-07-05 16:42] LABS: URINE APPEARANCE CLEAR; URINE BILIRUBIN NEGATIVE (NEGATIVE); URINE BLOOD 3+ (NEGATIVE); URINE COLOR LTYELLOW; URINE GLUCOSE (UA) 2+ (NEGATIVE); URINE KETONE NEGATIVE (NEGATIVE); URINE NITRITE NEGATIVE (NEGATIVE); URINE PROTEIN NEGATIVE (NEGATIVE); URINE UROBILINOGEN NEGATIVE mg/dL (0.2-1.0)
[2017-07-05 17:06] LABS: URINE RBC 3 /hpf (0-3); URINE WBC <1 /hpf (3-5)
[2017-07-05] MEDS: chlordiazePOXIDE HCL 25 MG CAPSULE PO SCH ×2 (18:00→18:59)
[2017-07-05] MEDS: oxyCODONE HCL 5 MG TABLET PO SCH ×2 (18:00→23:00)
--- NOTE | 2017-07-05 18:09 | CONSULT ---
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 Patient does not remember details of fall but does admit to relapsing to alcohol. Patient is oriented 3. As per , patient and family wants patient to go to a private rehab facility. States she has a facility in mind and that she contacted Dr Ashley who wants pt admitted to [facility] for inpatient medically supervised detoxification prior to transfer to private rehab. - History Source History Provided By: Patient, Medical Record, Caregiver Limitations to Obtaining History: No Limitations - Alcohol/Substance Use Hx Alcohol Use: Yes Hx Substance Use: Yes Hx Substance Use Treatment: Yes (repeated inpatient alcohol detoxifications during hospitalizations, IOP) - Current Drug/Alcohol Use Alcohol Route: Oral Frequency: Daily Amount used: several vodka drinks Age of first use: 17 Date of Last Use: 07/05/17 - Past Medical History Cardio/Vascular: Yes: HTN Gastrointestinal: Yes: Ascites Hepatobiliary: Yes: Cirrhosis (Alcohol induced, decompensated), Other (History of severe alcoholic hepatitis, hepatic encephalopathy) Psych: Yes: Depression Musculoskeletal: Yes: Other (Cellulitis and tenosynovitis +/- osteomyelitis 3rd/ 4th digit of left hand) Dermatology: Yes: Cellulitis (of LE and of hand), Psoriasis - Significant Medical Findings: 52 yo m readmitted after falling while intoxicated, now in alcohol withdrawal, decompensated liver disease, jaundice, body aches and pains generalized after fall. is identifying rehab facility where patiet has agreed to go after he completes inpatient medically supervised detox. CIWA Score - CIWA Score Nausea/Vomitin-Mild Nausea/No Vomiting Muscle Tremors: 2 Anxiety: 3 Agitation: 3 Paroxysmal Sweats: No Perspiration Orientation: 1-Uncertain about Date Tacttile Disturbances: 2-Mild Itch/Numbness/Burn Auditory Disturbances: 0-None Visual Disturbances: 0-None Headache: 2-Mild CIWA-Ar Total Score: 14 Assessment Plan - Diagnosis (1) Alcohol dependence with uncomplicated withdrawal Status: Acute (2) Alcoholic cirrhosis Status: Acute Qualifiers: Ascites presence: with ascites Qualified Code(s): K70.31 - Alcoholic cirrhosis of liver with ascites (3) Dehydration Status: Acute (4) Head injury Status: Acute Qualifiers: Encounter type: initial encounter Qualified Code(s): S09.90XA - Unspecified injury of head, initial encounter (5) Hepatic encephalopathy Status: Acute (6) Acute kidney injury Status: Acute (7) Anemia Status: Acute Qualifiers: Anemia type: unspecified type Qualified Code(s): D64.9 - Anemia, unspecified - Medication Detox Regimen/Protocol: Librium
[2017-07-05 18:35] LABS: ALBUMIN 2.4 g/dl (3.4-5.0); ANION GAP 7 (8-16); BILIRUBIN,TOTAL 3.8 mg/dL (0.2-1.0); CO2 36 mmol/L (21-32); GLUCOSE,RANDOM 182 mg/dL (74-106); SGOT/AST 68 U/L (15-37); SGPT/ALT 27 U/L (12-78); TOT PROT 7.2 g/dl (6.4-8.2)
[2017-07-05 18:37] LABS: ALK PHOS 77 U/L (45-117); CPK 56 IU/L (39-308); TROPONIN I 0.02 ng/ml (0.00-0.05)
[2017-07-05] MEDS ORDERED: chlordiazePOXIDE HCL 25 MG CAPSULE ONE (18:55)
[2017-07-05] MEDS ORDERED: LACTULOSE 20 GM/30 ML UDC (FOR ORAL USE ONLY) PO ONE (18:57)
[2017-07-05 21:39] LABS: PLATELET COUNT 103 K/MM3 (134-434)
[2017-07-05] MEDS ORDERED: diazePAM 5 MG TABLET PO SCH (22:00)
[2017-07-05 22:25] LABS: URINE LEUK ESTERASE Negative (NEGATIVE)
[2017-07-05] MEDS ORDERED: PANTOPRAZOLE 40 MG TABLET (FP) ONE (22:36)
[2017-07-05] MEDS ORDERED: oxyCODONE HCL 5 MG TABLET ONE (22:37)
[2017-07-05] MEDS ORDERED: MAGNESIUM OXIDE 400 MG TABLET (FP) ONE (22:37)
[2017-07-05] MEDS ORDERED: HEPARIN NA (PORCINE) 5,000 UNITS/ML 1ML VIAL ONE (22:37)
[2017-07-05] MEDS: PANTOPRAZOLE 40 MG TABLET (FP) PO SCH (23:00)
[2017-07-05] MEDS: HEPARIN NA (PORCINE) 5,000 UNITS/ML 1ML VIAL SQ SCH (23:00)
[2017-07-05] MEDS: MAGNESIUM OXIDE 400 MG TABLET (FP) PO SCH (23:00)
[2017-07-05] MEDS: BETAMETHASONE DIPR 0.05% CREAM 15 GM TUBE TP SCH (23:00)
[2017-07-05] MEDS: RIFAXIMIN 550 MG TABLET (UD) PO SCH (23:00)
[2017-07-06] MEDS: chlordiazePOXIDE HCL 25 MG CAPSULE PO SCH ×5 (00:49→22:51)
[2017-07-06] MEDS: oxyCODONE HCL 5 MG TABLET PO PRN ×3 (04:29→21:20)
--- NOTE | 2017-07-06 08:18 | HP ---
Admitting History and Physical - Admission History of Present Illness: 52-year-old male history of depression, alcohol cirrhosis complicated by ascites , varices and encephalopathy,recently taken off transplant list as patient continues to drink, status post rehabilitation over one year ago, hypertension, brought in by for fall in setting of alcohol intake today. Of note, I saw patient for exact same thing [address] was normal. Labs were baseline and patient was discharged in care of family after a period of observation in the ED were patient sobered up. Patient does not remember details of fall but does admit to drinking today. states her niece found patient lying on the floor an hour or 2 ago. Patient denying any pain at this time and is oriented 3. No GODWIN, dizziness, visual changes, focal weakness, CP, SOB, neck or back pain. As per , patient and family wants patient to go to a detox facility but not to [facility]. States she has a facility in mind and that she contacted Dr Ashley who wants pt admitted to be medically tuned up prior to being transferred to a detox facility - Past Medical History Cardiovascular: Yes: HTN Gastrointestinal: Yes: Ascites Hepatobiliary: Yes: Cirrhosis (Alcohol induced, decompensated), Other (History of severe alcoholic hepatitis, hepatic encephalopathy) Musculoskeletal: Yes: Other (Cellulitis and tenosynovitis +/- osteomyelitis 3rd/ 4th digit of left hand) Dermatology: Yes: Cellulitis (of LE and of hand), Psoriasis - Smoking History Smoking history: Never smoked Have you smoked in the past 12 months: No - Alcohol/Substance Use Hx Alcohol Use: Yes History of Substance Use: reports: None - Social History ADL: Independent Occupation: disabled History of Recent Travel: No Home Medications - Allergies Allergies/Adverse Reactions: Allergies Allergy/AdvReac Type Severity Reaction Status Date / Time No Known Allergies Allergy Verified 07/05/17 15:14 - Home Medications Home Medications: Ambulatory Orders Thiamine HCl [Vitamin B1] 100 mg PO DAILY 12/21/16 Magnesium Oxide [Mag-Ox -] 400 mg PO BID tablet 06/02/17 Betamethasone Dipropionate [Diprosone 0.05% Cream -] 1 applic TP BID #60 gr Folic Acid - 1 mg PO DAILY #30 tablet 06/23/17 Furosemide [Lasix -] 40 mg PO DAILY #30 tablet 06/23/17 Hydroxyzine HCl [Atarax -] 25 mg PO Q6H PRN #60 tablet 06/23/17 Lactulose (Oral Use) [Cephulac -] 20 gm PO DAILY #900 ml 06/23/17 Nadolol [Corgard -] 40 mg PO DAILY #30 tablet 06/23/17 Pantoprazole Sodium [Protonix -] 40 mg PO BID #60 tab 06/23/17 Rifaximin [Xifaxan -] 550 mg PO BID #60 tablet 06/23/17 Diazepam [Valium] 10 mg PO HS #5 tablet MDD 1 06/24/17 Oxycodone HCl [Oxaydo] 5 mg PO QID #15 tablet.orl MDD 4 06/24/17 Physical Examination Vital Signs: Vital Signs Temperature 98.8 F 07/06/17 06:00 Pulse Rate 102 H 07/06/17 06:00 Respiratory Rate 20 07/06/17 06:00 Blood Pressure 143/64 07/06/17 06:00 O2 Sat by Pulse Oximetry (%) 98 07/06/17 00:50 Cardiovascular: Yes: S1, S2 Respiratory: Yes: Regular, CTA Bilaterally Gastrointestinal: Yes: Normal Bowel Sounds, Soft, Abdomen, Obese, Ascites, Distention. No: Tenderness Extremities: Yes: Erythema Edema: Yes Integumentary: Yes: Erythema Labs: CBC, BMP 07/05/17 15:42 07/05/17 17:50 Problem List - Problems (1) Alcoholic cirrhosis Assessment/Plan: MONITOR LABS GI CONSULT Code(s): K70.30 - ALCOHOLIC CIRRHOSIS OF LIVER WITHOUT ASCITES Qualifiers: Ascites presence: with ascites Qualified Code(s): K70.31 - Alcoholic cirrhosis of liver with ascites (2) Alcohol intoxication Assessment/Plan: DETOX CONSULT INPATIENT REHAB EVAL MVI -FOLATE-MVI Code(s): F10.929 - ALCOHOL USE, UNSPECIFIED WITH INTOXICATION, UNSPECIFIED Qualifiers: Complication of substance-induced condition: uncomplicated Qualified Code(s ): F10.920 - Alcohol use, unspecified with intoxication, uncomplicated (3) Anemia Assessment/Plan: FOLLOW LABS GI Code(s): D64.9 - ANEMIA, UNSPECIFIED Qualifiers: Anemia type: unspecified type Qualified Code(s): D64.9 - Anemia, unspecified
[2017-07-06 08:33] LABS: BASO % 0.7 % (0-2.0); MCH 35.8 pg (25.7-33.7); MCHC 34.5 g/dl (32.0-35.9); MEAN CELL VOLUME 103.5 fl (80-96); MEAN PLT VOLUME 8.1 fl (7.5-11.1); NEUT % 67.7 % (42.8-82.8); PLATELET COUNT 81 K/MM3 (134-434); RDW 17.6 % (11.9-15.9)
[2017-07-06 08:53] LABS: INR 2.05 (0.82-1.09); PROTHROMBIN TIME (PATIENT) 23.2 SEC (9.98-11.88)
[2017-07-06 09:01] LABS: ALBUMIN 2.4 g/dl (3.4-5.0); ANION GAP 10 (8-16); CALCIUM 8.6 mg/dL (8.5-10.1); CO2 32 mmol/L (21-32); GLUCOSE,RANDOM 125 mg/dL (74-106)
[2017-07-06 09:06] LABS: ALK PHOS 75 U/L (45-117); BILIRUBIN,TOTAL 4.6 mg/dL (0.2-1.0); CREATININE 0.9 mg/dL (0.7-1.3); SGOT/AST 61 U/L (15-37); SGPT/ALT 25 U/L (12-78); TOT PROT 7.1 g/dl (6.4-8.2)
[2017-07-06] MEDS ORDERED: LACTULOSE 20 GM/30 ML UDC (FOR ORAL USE ONLY) PO SCH (10:00)
[2017-07-06] MEDS ORDERED: THIAMINE HCL 100 MG TABLET (FP) PO SCH (10:00)
[2017-07-06] MEDS: HEPARIN NA (PORCINE) 5,000 UNITS/ML 1ML VIAL SQ SCH ×2 (10:12→21:22)
[2017-07-06] MEDS ORDERED: PT OWN MED DRAWER 7, Y5N ONE ×3 (10:12→22:43)
[2017-07-06] MEDS: MAGNESIUM OXIDE 400 MG TABLET (FP) PO SCH ×2 (10:19→21:22)
[2017-07-06] MEDS: RIFAXIMIN 550 MG TABLET (UD) PO SCH ×2 (10:19→22:51)
[2017-07-06] MEDS: FUROSEMIDE 40 MG TABLET (FP) PO SCH (10:19)
[2017-07-06] MEDS: PANTOPRAZOLE 40 MG TABLET (FP) PO SCH ×2 (10:19→21:22)
[2017-07-06] MEDS: FOLIC ACID 1 MG TABLET (FP) PO SCH (10:19)
[2017-07-06] MEDS: BETAMETHASONE DIPR 0.05% CREAM 15 GM TUBE TP SCH ×2 (10:25→22:51)
[2017-07-06] MEDS ORDERED: chlordiazePOXIDE HCL 25 MG CAPSULE PO PRN (11:44)
[2017-07-06] MEDS: hydrOXYzine HCL 25 MG TABLET (FP) PO PRN ×2 (11:55→21:21)
--- NOTE | 2017-07-06 12:47 | CON.GI ---
Consult Consult Specialty:: GI Reason for Consultation:: history of liver cirrhosis - History of Present Illness History of Present Illness: A 52 yom with alcoholic liver cirrhosis, taken off liver transplant list for not being compliant. History of esophageal varices banding x 2, in November and May of this year. Admitted s/p multiple falls while intoxicated. High level of ETOH on admission. At the time of this encounter, a bedside, the patient reports no melena, hematochezia, hematemesis, fever, abdominal pain. Edson chest, or abdominal pain, nausea, vomiting, dyspahagia, or odynopagia. - History Source History Provided By: Patient, Family Member, Medical Record - Past Medical History Cardio/Vascular: Yes: HTN Gastrointestinal: Yes: Ascites Hepatobiliary: Yes: Cirrhosis (Alcohol induced, decompensated), Other (History of severe alcoholic hepatitis, hepatic encephalopathy) Musculoskeletal: Yes: Other (Cellulitis and tenosynovitis +/- osteomyelitis 3rd/ 4th digit of left hand) Dermatology: Yes: Cellulitis (of LE and of hand), Psoriasis - Alcohol/Substance Use Hx Alcohol Use: Yes History of Substance Use: reports: None - Smoking History Smoking history: Never smoked Have you smoked in the past 12 months: No - Social History Usual Living Arrangement: With Spouse ADL: Independent Occupation: disabled History of Recent Travel: No Home Medications - Allergies Allergies/Adverse Reactions: Allergies Allergy/AdvReac Type Severity Reaction Status Date / Time No Known Allergies Allergy Verified 07/05/17 15:14 - Home Medications Home Medications: Ambulatory Orders Thiamine HCl [Vitamin B1] 100 mg PO DAILY 12/21/16 Magnesium Oxide [Mag-Ox -] 400 mg PO BID tablet 06/02/17 Betamethasone Dipropionate [Diprosone 0.05% Cream -] 1 applic TP BID #60 gr Folic Acid - 1 mg PO DAILY #30 tablet 06/23/17 Furosemide [Lasix -] 40 mg PO DAILY #30 tablet 06/23/17 Hydroxyzine HCl [Atarax -] 25 mg PO Q6H PRN #60 tablet 06/23/17 Lactulose (Oral Use) [Cephulac -] 20 gm PO DAILY #900 ml 06/23/17 Nadolol [Corgard -] 40 mg PO DAILY #30 tablet 06/23/17 Pantoprazole Sodium [Protonix -] 40 mg PO BID #60 tab 06/23/17 Rifaximin [Xifaxan -] 550 mg PO BID #60 tablet 06/23/17 Diazepam [Valium] 10 mg PO HS #5 tablet MDD 1 06/24/17 Oxycodone HCl [Oxaydo] 5 mg PO QID #15 tablet.orl MDD 4 06/24/17 Family Disease History - Family Disease History Family History: Unremarkable Review of Systems Findings/Remarks: Please refer to H&P Physical Exam-GI Vital Signs: Vital Signs Temperature 98.1 F 07/06/17 10:00 Pulse Rate 103 H 07/06/17 10:00 Respiratory Rate 20 07/06/17 10:00 Blood Pressure 134/63 07/06/17 10:00 O2 Sat by Pulse Oximetry (%) 99 07/06/17 08:00 Constitutional: Yes: Calm Eyes: Yes: Sclera Icterus Cardiovascular: Yes: Regular Rate and Rhythm Respiratory: Yes: Regular Gastrointestinal Inspection: Yes: Ascites, Distention ...Palpate: No: Firm/Rigid, Guarding, Tenderness ...Percussion: Yes: Fluid Wave Edema: Yes Edema: LLE: 2+, RLE: 2+ Neurological: Yes: Alert, Oriented, Tremors Labs: CBC, BMP 07/06/17 07:20 07/06/17 07:20 INR, PTT INR 2.05 (0.82-1.09) H 07/06/17 07:20 Abnormal Lab Results 07/05/17 07/05/17 07/05/17 15:31 15:42 16:20 WBC 12.7 H RBC 2.32 L Hgb 8.5 L Hct 24.1 L MCV 103.9 H MCH 36.7 H RDW 16.9 H Plt Count 103 L Monocytes % 10.3 H PT with INR INR Potassium Chloride Carbon Dioxide Anion Gap Random Glucose Total Bilirubin AST Ammonia 67.37 H Albumin Urine Glucose (UA) 2+ H Urine Blood 3+ H Alcohol, Quantitative 07/05/17 07/05/17 07/06/17 17:50 17:50 07:20 WBC 11.0 H RBC 2.03 L Hgb 7.3 L D Hct 21.0 L MCV 103.5 H MCH 35.8 H RDW 17.6 H Plt Count 81 L D Monocytes % PT with INR INR Potassium 3.3 L Chloride Carbon Dioxide 36 H Anion Gap 7 L Random Glucose 182 H Total Bilirubin 3.8 H D AST 68 H Ammonia Albumin 2.4 L Urine Glucose (UA) Urine Blood Alcohol, Quantitative 285.1 H* 07/06/17 07/06/17 07:20 07:20 WBC RBC Hgb Hct MCV MCH RDW Plt Count Monocytes % PT with INR 23.20 H INR 2.05 H Potassium Chloride 97 L Carbon Dioxide Anion Gap Random Glucose 125 H D Total Bilirubin 4.6 H D AST 61 H Ammonia Albumin 2.4 L Urine Glucose (UA) Urine Blood Alcohol, Quantitative Imaging - Results Ultrasound: Report Reviewed (05/2017) Problem List - Problems (1) Alcohol dependence with uncomplicated withdrawal Code(s): F10.230 - ALCOHOL DEPENDENCE WITH WITHDRAWAL, UNCOMPLICATED (2) Alcoholic cirrhosis Code(s): K70.30 - ALCOHOLIC CIRRHOSIS OF LIVER WITHOUT ASCITES Qualifiers: Ascites presence: with ascites Qualified Code(s): K70.31 - Alcoholic cirrhosis of liver with ascites (3) Hepatic encephalopathy Code(s): K72.90 - HEPATIC FAILURE, UNSPECIFIED WITHOUT COMA (4) Alcohol intoxication Code(s): F10.929 - ALCOHOL USE, UNSPECIFIED WITH INTOXICATION, UNSPECIFIED Qualifiers: Complication of substance-induced condition: uncomplicated Qualified Code(s ): F10.920 - Alcohol use, unspecified with intoxication, uncomplicated (5) Anemia Code(s): D64.9 - ANEMIA, UNSPECIFIED Qualifiers: Anemia type: unspecified type Qualified Code(s): D64.9 - Anemia, unspecified (6) Jaundice Code(s): R17 - UNSPECIFIED JAUNDICE Assessment/Plan A non-compliant 52 yom with end-stage liver disease and continued alcohol use s/ p fall while intoxicated. Macrocytic anemia, multifactorial. No overt signs of GI bleeding at this time. Hg has been between 8 and 7 since January his year. Ascites. Normal BUN, Cr, Na, K. Low albumin. Agree with current management 2 gm salt diet restriction Aldactone 100 mg/day Lasix 40 mg/day Rifaximin 550 bid Nadolol 40 mg/daily (do not give if HR < 60 BPM Lactulose, titrate to 4 bm/day alcohol withdrawal protocol, monitor for DT CBC, CMP daily
[2017-07-06] MEDS: NADOLOL 40 MG TABLET (FP) PO SCH (13:40)
[2017-07-06] MEDS: LACTULOSE 20 GM/30 ML UDC (FOR ORAL USE ONLY) PO SCH ×3 (13:40→21:24)
[2017-07-06] MEDS: PRENATAL VITAMINS W/ FOLIC ACID TABLET (FP) PO SCH (13:41)
--- NOTE | 2017-07-06 14:37 | PN ---
Progress Note (short form) - Note Progress Note: Patient seen and examined Patient was here last month and was discharged was evaluated by us during the last admission. with frequent admissions for history of decompensated alcoholic cirrhosis with sequelae of ascites, esophageal varices and encephalopathy. Again with ETOH intox now and ?total body pains. Hematology consulted for thrombocytopenia Last Vital Signs Temp Pulse Resp BP Pulse Ox 98.3 F 107 H 19 131/61 99 07/06/17 14:47 07/06/17 14:47 07/06/17 14:47 07/06/17 14:47 07/06/17 08:00 CBC, BMP 07/06/17 07:20 07/06/17 07:20 Current Medications Generic Name Dose Route Start Last Admin Trade Name Freq PRN Reason Stop Dose Admin Betamethasone Dipropionate 1 applic 07/05/17 22:00 07/06/17 10:25 Diprosone 0.05% Cream - TP 1 applic BID VANIAT Administration Chlordiazepoxide HCl 50 mg 07/06/17 11:00 07/06/17 11:52 Librium - PO 07/07/17 05:01 50 mg [id number] VANITA Administration Chlordiazepoxide HCl 25 mg 07/07/17 11:00 Librium - PO 07/08/17 05:01 [id number] VANITA Chlordiazepoxide HCl 15 mg 07/08/17 11:00 Librium - PO 07/09/17 05:01 [id number] VANITA Chlordiazepoxide HCl 25 mg 07/06/17 11:44 Librium - PO 07/09/17 11:43 Q4H PRN WITHDRAWAL(CONT SUBST) Folic Acid 1 mg 07/06/17 10:00 07/06/17 10:19 Folic Acid - PO 1 mg DAILY VANITA Administration Furosemide 40 mg 07/06/17 10:00 07/06/17 10:19 Lasix - PO 40 mg DAILY VANITA Administration Heparin Sodium (Porcine) 5,000 unit 07/05/17 22:00 07/06/17 10:12 Heparin - SQ Not Given BID VANITA Hydroxyzine HCl 25 mg 07/05/17 16:31 07/06/17 11:55 Atarax - PO 25 mg Q6H PRN Administration FOR ITCHING Lactulose 20 gm 07/06/17 14:00 07/06/17 13:40 Cephulac (Oral Use) PO 20 gm TID VANITA Administration Magnesium Oxide 400 mg 07/05/17 22:00 07/06/17 10:19 Mag-Ox - PO 400 mg BID VANITA Administration Nadolol 40 mg 07/06/17 10:00 07/06/17 13:40 Corgard - PO 40 mg DAILY VANITA Administration Oxycodone HCl 5 mg 07/06/17 04:20 07/06/17 10:20 Roxicodone - PO 5 mg Q6H PRN Administration PAIN Pantoprazole Sodium 40 mg 07/05/17 22:00 07/06/17 10:19 Protonix - PO 40 mg BID VANITA Administration Potassium Chloride 20 meq 07/07/17 10:00 K-Dur - PO DAILY VANITA Multivit/Folic Acid/Iron 1 tab 07/06/17 12:00 07/06/17 13:41 Vitamins (Sjr) - PO Not Given DAILY VANITA Rifaximin 550 mg 07/05/17 22:00 07/06/17 10:19 Xifaxan - PO 550 mg BID VANITA Administration Thiamine HCl 100 mg 07/06/17 22:00 Vitamin B1 - PO HS VANITA Zolpidem Tartrate 5 mg 07/06/17 22:00 Ambien - PO HS PRN INSOMNIA Decompensated alcohol induced cirrhosis: macrocytic anemia ETOH toxicity Thrombocytopenia coagulopathy anemia: multifactorial reviewed his Anemia labs, 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 watch for ETOH WD.
[2017-07-06] MEDS ORDERED: POTASSIUM CHLORIDE TABS 20 MEQ TABLET.ER (FP) PO ONE (15:30)
[2017-07-06] MEDS: FUROSEMIDE 40 MG/4 ML INJECTABLE VIAL IVPUSH ONE (16:07)
[2017-07-06] MEDS ORDERED: PHYTONADIONE 10 MG/1 ML AMP IVPB ONE (17:13)
--- NOTE | 2017-07-06 18:43 | CON.PSY ---
Psychiatry Consult Chief Complaint: Asked to see this patient a 52 year old male with ESLD with hx of Depression/Anxiety. History of Present Problem: Patient was seen at bedside who gave collateral information medical charts reviewed labs reviewed Nursing input received Patient states that her , the patient will be going to a rehabilitation facility in [facility]. According to her there is a bed and they have held her credit card for that purpose. Patient states that he was doing ok and had stopped drinking until January when his father . He was also on the transplant list at [place] and now has been taken off due to his recent relapse. Symptoms: reports: Depressed Mood, Decreased Energy, Appetite Disturbance - Current Medications Current Medications: Active Medications Betamethasone Dipropionate (Diprosone 0.05% Cream -) 1 applic TP BID [facility] Last Admin: 07/06/17 10:25 Dose: 1 applic Chlordiazepoxide HCl (Librium -) 50 mg PO [id number] [facility] Stop: 07/07/17 05:01 Last Admin: 07/06/17 16:48 Dose: 50 mg Chlordiazepoxide HCl (Librium -) 25 mg PO [id number] [facility] Stop: 07/08/17 05:01 Chlordiazepoxide HCl (Librium -) 15 mg PO [id number] VANITA Stop: 07/09/17 05:01 Chlordiazepoxide HCl (Librium -) 25 mg PO Q4H PRN PRN Reason: WITHDRAWAL(CONT SUBST) Stop: 07/09/17 11:43 Folic Acid (Folic Acid -) 1 mg PO DAILY [facility] Last Admin: 07/06/17 10:19 Dose: 1 mg Furosemide (Lasix -) 40 mg PO DAILY [facility] Last Admin: 07/06/17 10:19 Dose: 40 mg Heparin Sodium (Porcine) (Heparin -) 5,000 unit SQ BID [facility] Last Admin: 07/06/17 10:12 Dose: Not Given Hydroxyzine HCl (Atarax -) 25 mg PO Q6H PRN PRN Reason: FOR ITCHING Last Admin: 07/06/17 11:55 Dose: 25 mg Lactulose (Cephulac (Oral Use)) 20 gm PO TID [facility] Last Admin: 07/06/17 13:40 Dose: 20 gm Magnesium Oxide (Mag-Ox -) 400 mg PO BID [facility] Last Admin: 07/06/17 10:19 Dose: 400 mg Nadolol (Corgard -) 40 mg PO DAILY [facility] Last Admin: 07/06/17 13:40 Dose: 40 mg Oxycodone HCl (Roxicodone -) 5 mg PO Q6H PRN PRN Reason: PAIN Last Admin: 07/06/17 10:20 Dose: 5 mg Pantoprazole Sodium (Protonix -) 40 mg PO BID [facility] Last Admin: 07/06/17 10:19 Dose: 40 mg Potassium Chloride (K-Dur -) 20 meq PO DAILY [facility] Multivit/Folic Acid/Iron ( Vitamins (Sjr) -) 1 tab PO DAILY [facility] Last Admin: 07/06/17 13:41 Dose: Not Given Rifaximin (Xifaxan -) 550 mg PO BID [facility] Last Admin: 07/06/17 10:19 Dose: 550 mg Thiamine HCl (Vitamin B1 -) 100 mg PO HS VANITA Zolpidem Tartrate (Ambien -) 5 mg PO HS PRN PRN Reason: INSOMNIA - Allergies Allergies: Allergies Allergy/AdvReac Type Severity Reaction Status Date / Time No Known Allergies Allergy Verified 07/05/17 15:14 - Current Living Status Usual Living Arrangement: With Significant Other (two teenage daughters) - Current Mental Status Evaluation Appearance: Other (appropriate for situation) Attitude: Cooperative - Affect Affect: Constrictive Appropriateness: Appropriate to Content - Mood Mood: Depressed - Speech/Language Expressive: Coherent Receptive: Age Appropriate Comprehension of Spoken Words - Psychomotor Activity Psychomotor Activity: Normal - Thought Process Thought Process: Intact - Thought Content Hallucinations: Absent Delusions: Absent - Self Perception Self Perception: No Impairment - Cognition Attention: Diminished Orientation: Time, Person, Place Assessment/Plan Patient with End Stage Liver Disease and is not clinically depressed to warrant meds at this time No behavioral problems not acutely encelphalopatic no meds at this time
--- NOTE | 2017-07-06 20:35 | PN ---
Progress Note (short form) - Note Progress Note: GI NOte: I came to consult on Carlos A but after seeing him and discussion the situation with him and his I discovered that Dr Craig has already consulted. I encouraged Vazquez to take advantage of the sacrifice being made by his and children and to enter the longer term alcoholism program in [place]. Please recall us if we can be of any help in the future. I can see Vazquez in coverage of Dr Craig this weekend.
[2017-07-06] MEDS: THIAMINE HCL 100 MG TABLET (FP) PO SCH (21:21)
[2017-07-07] MEDS: FUROSEMIDE 40 MG/4 ML INJECTABLE VIAL IVPUSH ONE (00:15)
[2017-07-07] MEDS: oxyCODONE HCL 5 MG TABLET PO PRN ×4 (03:24→20:21)
[2017-07-07] MEDS: LACTULOSE 20 GM/30 ML UDC (FOR ORAL USE ONLY) PO SCH (05:55)
[2017-07-07] MEDS: chlordiazePOXIDE HCL 25 MG CAPSULE PO SCH ×3 (05:55→17:13)
[2017-07-07] MEDS ORDERED: LACTULOSE 20 GM/30 ML UDC (FOR ORAL USE ONLY) PO ONE (08:25)
--- NOTE | 2017-07-07 08:30 | PN ---
Progress Note, Physician History of Present Illness: No acute events overnight. C/o frequent diarrhea. - Current Medication List Current Medications: Active Medications Betamethasone Dipropionate (Diprosone 0.05% Cream -) 1 applic TP BID [facility] Last Admin: 07/06/17 22:51 Dose: 1 applic Chlordiazepoxide HCl (Librium -) 25 mg PO [id number] [facility] Stop: 07/08/17 05:01 Chlordiazepoxide HCl (Librium -) 15 mg PO [id number] [facility] Stop: 07/09/17 05:01 Chlordiazepoxide HCl (Librium -) 25 mg PO Q4H PRN PRN Reason: WITHDRAWAL(CONT SUBST) Stop: 07/09/17 11:43 Folic Acid (Folic Acid -) 1 mg PO DAILY [facility] Last Admin: 07/06/17 10:19 Dose: 1 mg Furosemide (Lasix -) 40 mg PO DAILY [facility] Last Admin: 07/06/17 10:19 Dose: 40 mg Heparin Sodium (Porcine) (Heparin -) 5,000 unit SQ BID [facility] Last Admin: 07/06/17 21:22 Dose: Not Given Hydroxyzine HCl (Atarax -) 25 mg PO Q6H PRN PRN Reason: FOR ITCHING Last Admin: 07/06/17 21:21 Dose: 25 mg Lactulose (Cephulac (Oral Use)) 20 gm PO ONCE ONE Stop: 07/07/17 08:26 Magnesium Oxide (Mag-Ox -) 400 mg PO BID [facility] Last Admin: 07/06/17 21:22 Dose: 400 mg Nadolol (Corgard -) 40 mg PO DAILY [facility] Last Admin: 07/06/17 13:40 Dose: 40 mg Oxycodone HCl (Roxicodone -) 5 mg PO Q6H PRN PRN Reason: PAIN Last Admin: 07/07/17 03:24 Dose: 5 mg Pantoprazole Sodium (Protonix -) 40 mg PO BID [facility] Last Admin: 07/06/17 21:22 Dose: 40 mg Potassium Chloride (K-Dur -) 20 meq PO DAILY [facility] Multivit/Folic Acid/Iron ( Vitamins (Sjr) -) 1 tab PO DAILY [facility] Last Admin: 07/06/17 13:41 Dose: Not Given Rifaximin (Xifaxan -) 550 mg PO BID [facility] Last Admin: 07/06/17 22:51 Dose: 550 mg Thiamine HCl (Vitamin B1 -) 100 mg PO HS [facility] Last Admin: 07/06/17 21:21 Dose: 100 mg Zolpidem Tartrate (Ambien -) 5 mg PO HS PRN PRN Reason: INSOMNIA - Objective Vital Signs: Vital Signs Temperature 99.2 F 07/07/17 06:00 Pulse Rate 83 07/07/17 06:00 Respiratory Rate 20 07/07/17 06:00 Blood Pressure 143/70 07/07/17 06:00 O2 Sat by Pulse Oximetry (%) 99 07/06/17 08:00 Constitutional: Yes: Calm Eyes: Yes: Conjunctiva Clear HENT: Yes: Atraumatic Neck: Yes: Supple Cardiovascular: Yes: Regular Rate and Rhythm Respiratory: Yes: Regular Gastrointestinal: Yes: Soft, Ascites, Distention. No: Melena, Rectal Bleeding Neurological: Yes: Alert, Asterixis Labs: CBC, BMP 07/06/17 07:20 07/06/17 07:20 INR, PTT INR 2.05 (0.82-1.09) H 07/06/17 07:20 Laboratory Results - last 24 hr 07/06/17 07/06/17 07/06/17 07:20 07:20 07:20 WBC 11.0 H RBC 2.03 L Hgb 7.3 L D Hct 21.0 L MCV 103.5 H MCH 35.8 H MCHC 34.5 RDW 17.6 H Plt Count 81 L D MPV 8.1 Neutrophils % 67.7 Lymphocytes % 20.3 Monocytes % 9.3 Eosinophils % 2.0 Basophils % 0.7 PT with INR 23.20 H INR 2.05 H Sodium 139 Potassium 3.5 Chloride 97 L Carbon Dioxide 32 Anion Gap 10 BUN 14 Creatinine 0.9 Creat Clearance w eGFR > 60 Random Glucose 125 H D Calcium 8.6 Total Bilirubin 4.6 H D AST 61 H ALT 25 Alkaline Phosphatase 75 Total Protein 7.1 Albumin 2.4 L Blood Type Antibody Screen Crossmatch 07/06/17 17:15 WBC RBC Hgb Hct MCV MCH MCHC RDW Plt Count MPV Neutrophils % Lymphocytes % Monocytes % Eosinophils % Basophils % PT with INR INR Sodium Potassium Chloride Carbon Dioxide Anion Gap BUN Creatinine Creat Clearance w eGFR Random Glucose Calcium Total Bilirubin AST ALT Alkaline Phosphatase Total Protein Albumin Blood Type O POSITIVE Antibody Screen Negative Crossmatch See Detail Problem List - Problems (1) Alcohol dependence with uncomplicated withdrawal Code(s): F10.230 - ALCOHOL DEPENDENCE WITH WITHDRAWAL, UNCOMPLICATED (2) Alcoholic cirrhosis Code(s): K70.30 - ALCOHOLIC CIRRHOSIS OF LIVER WITHOUT ASCITES Qualifiers: Ascites presence: with ascites Qualified Code(s): K70.31 - Alcoholic cirrhosis of liver with ascites (3) Hepatic encephalopathy Code(s): K72.90 - HEPATIC FAILURE, UNSPECIFIED WITHOUT COMA (4) Alcohol intoxication Code(s): F10.929 - ALCOHOL USE, UNSPECIFIED WITH INTOXICATION, UNSPECIFIED Qualifiers: Complication of substance-induced condition: uncomplicated Qualified Code(s ): F10.920 - Alcohol use, unspecified with intoxication, uncomplicated (5) Anemia Code(s): D64.9 - ANEMIA, UNSPECIFIED Qualifiers: Anemia type: unspecified type Qualified Code(s): D64.9 - Anemia, unspecified (6) Jaundice Code(s): R17 - UNSPECIFIED JAUNDICE Assessment/Plan 2 gm salt diet restriction Aldactone 100 mg/day Lasix 40 mg/day Rifaximin 550 bid Nadolol 40 mg/daily (do not give if HR < 60 BPM Lactulose reduced to 1 dose/day alcohol withdrawal protocol, monitor for DT CBC, CMP daily
[2017-07-07] MEDS ORDERED: PT OWN MED DRAWER 7, Y5N ONE (09:27)
[2017-07-07] MEDS: FOLIC ACID 1 MG TABLET (FP) PO SCH (09:36)
[2017-07-07] MEDS: RIFAXIMIN 550 MG TABLET (UD) PO SCH ×2 (09:37→21:39)
[2017-07-07] MEDS: NADOLOL 40 MG TABLET (FP) PO SCH (09:37)
[2017-07-07] MEDS: PANTOPRAZOLE 40 MG TABLET (FP) PO SCH ×2 (09:37→21:39)
[2017-07-07] MEDS: FUROSEMIDE 40 MG TABLET (FP) PO SCH (09:37)
[2017-07-07] MEDS: BETAMETHASONE DIPR 0.05% CREAM 15 GM TUBE TP SCH (09:37)
[2017-07-07] MEDS: MAGNESIUM OXIDE 400 MG TABLET (FP) PO SCH ×2 (09:37→21:40)
[2017-07-07] MEDS: PRENATAL VITAMINS W/ FOLIC ACID TABLET (FP) PO SCH (09:37)
[2017-07-07] MEDS: HEPARIN NA (PORCINE) 5,000 UNITS/ML 1ML VIAL SQ SCH ×2 (09:37→21:39)
[2017-07-07] MEDS: POTASSIUM CHLORIDE TABS 20 MEQ TABLET.ER (FP) PO SCH (09:37)
[2017-07-07] MEDS: hydrOXYzine HCL 25 MG TABLET (FP) PO PRN (14:00)
--- NOTE | 2017-07-07 14:43 | PN ---
Progress Note, Physician Chief Complaint: Fall, AMS, alcohol abuse History of Present Illness: NAD, in chair, sad, dysphoric, wants to feel better, is nervous Complains of severe pain due to soreness secondary to fall. is planning to go to detox in [place] wants a bigger steroid cream for his psoriasis - Current Medication List Current Medications: Active Medications Chlordiazepoxide HCl (Librium -) 25 mg PO [id number] [facility] Stop: 07/08/17 05:01 Last Admin: 07/07/17 13:33 Dose: 25 mg Chlordiazepoxide HCl (Librium -) 15 mg PO [id number] [facility] Stop: 07/09/17 05:01 Chlordiazepoxide HCl (Librium -) 25 mg PO Q4H PRN PRN Reason: WITHDRAWAL(CONT SUBST) Stop: 07/09/17 11:43 Folic Acid (Folic Acid -) 1 mg PO DAILY [facility] Last Admin: 07/07/17 09:36 Dose: 1 mg Furosemide (Lasix -) 40 mg PO DAILY [facility] Last Admin: 07/07/17 09:37 Dose: 40 mg Heparin Sodium (Porcine) (Heparin -) 5,000 unit SQ BID [facility] Last Admin: 07/07/17 09:37 Dose: Not Given Hydroxyzine HCl (Atarax -) 25 mg PO Q6H PRN PRN Reason: FOR ITCHING Last Admin: 07/07/17 14:00 Dose: 25 mg Magnesium Oxide (Mag-Ox -) 400 mg PO BID [facility] Last Admin: 07/07/17 09:37 Dose: 400 mg Nadolol (Corgard -) 40 mg PO DAILY [facility] Last Admin: 07/07/17 09:37 Dose: 40 mg Oxycodone HCl (Roxicodone -) 5 mg PO Q4H PRN PRN Reason: PAIN Pantoprazole Sodium (Protonix -) 40 mg PO BID [facility] Last Admin: 07/07/17 09:37 Dose: 40 mg Potassium Chloride (K-Dur -) 20 meq PO DAILY [facility] Last Admin: 07/07/17 09:37 Dose: 20 meq Multivit/Folic Acid/Iron ( Vitamins (Sjr) -) 1 tab PO DAILY [facility] Last Admin: 07/07/17 09:37 Dose: 1 tab Rifaximin (Xifaxan -) 550 mg PO BID [facility] Last Admin: 07/07/17 09:37 Dose: 550 mg Thiamine HCl (Vitamin B1 -) 100 mg PO HS [facility] Last Admin: 07/06/17 21:21 Dose: 100 mg Triamcinolone Acetonide (Aristocort 0.5% Ointment -) 1 applic TP BID [facility] Zolpidem Tartrate (Ambien -) 5 mg PO HS PRN PRN Reason: INSOMNIA - Objective Vital Signs: Vital Signs Temperature 98.7 F 07/07/17 14:35 Pulse Rate 79 07/07/17 14:35 Respiratory Rate 18 07/07/17 14:35 Blood Pressure 131/73 07/07/17 14:35 O2 Sat by Pulse Oximetry (%) 99 07/06/17 08:00 Constitutional: Yes: Well Nourished, No Distress, Anxious (mild) Eyes: Yes: Sclera Icterus Cardiovascular: Yes: Regular Rate and Rhythm Respiratory: Yes: Regular Gastrointestinal: Yes: Soft Edema: Yes Edema: LLE: 2+, RLE: 2+ Peripheral Pulses WNL: Yes Integumentary: Yes: Jaundice, Rash (Psoriatic rash BLLE) Neurological: Yes: Alert, Oriented Psychiatric: Yes: Alert, Oriented Labs: CBC, BMP 07/06/17 07:20 07/06/17 07:20 INR, PTT INR 2.05 (0.82-1.09) H 07/06/17 07:20 Problem List - Problems (1) Alcohol dependence with uncomplicated withdrawal Assessment/Plan: -two facilities for detox: 1. [facility] in [place], contact Anais @ [phone]. 2. [facility] in [place], contact Ector @ [phone]. -seen by substance abuse MD -on withdrawal protocol Code(s): F10.230 - ALCOHOL DEPENDENCE WITH WITHDRAWAL, UNCOMPLICATED (2) Alcoholic cirrhosis Code(s): K70.30 - ALCOHOLIC CIRRHOSIS OF LIVER WITHOUT ASCITES Qualifiers: Ascites presence: with ascites Qualified Code(s): K70.31 - Alcoholic cirrhosis of liver with ascites (3) Head injury Assessment/Plan: -CT head negative Code(s): S09.90XA - UNSPECIFIED INJURY OF HEAD, INITIAL ENCOUNTER Qualifiers: Encounter type: initial encounter Qualified Code(s): S09.90XA - Unspecified injury of head, initial encounter (4) Hepatic encephalopathy Assessment/Plan: -lactulose to have BM 4 x day -seen by GI Code(s): K72.90 - HEPATIC FAILURE, UNSPECIFIED WITHOUT COMA (5) Anemia Assessment/Plan: -stable at the moment -hematology -threshold for transfusion H/H 7.0/22.0 -monitor labs today Code(s): D64.9 - ANEMIA, UNSPECIFIED Qualifiers: Anemia type: unspecified type Qualified Code(s): D64.9 - Anemia, unspecified (6) Depression with anxiety Assessment/Plan: -seen by psychiatry, no pharmacological intervention recommended at this time Code(s): F41.8 - OTHER SPECIFIED ANXIETY DISORDERS Assessment/Plan see problem list
[2017-07-07] MEDS ORDERED: LACTULOSE 20 GM/30 ML UDC (FOR ORAL USE ONLY) PO PRN (15:26)
[2017-07-07 17:52] LABS: MEAN CELL VOLUME 99.9 fl (80-96); MEAN PLT VOLUME 8.8 fl (7.5-11.1); PLATELET COUNT 82 K/MM3 (134-434); RDW 20.7 % (11.9-15.9)
[2017-07-07 18:15] LABS: ALBUMIN 2.7 g/dl (3.4-5.0); ALK PHOS 101 U/L (45-117); ANION GAP 4 (8-16); BILIRUBIN,TOTAL 7.2 mg/dL (0.2-1.0); CALCIUM 8.1 mg/dL (8.5-10.1); CO2 36 mmol/L (21-32); CREATININE 1.5 mg/dL (0.7-1.3); GLUCOSE,RANDOM 168 mg/dL (74-106); SGOT/AST 55 U/L (15-37); SGPT/ALT 22 U/L (12-78); TOT PROT 8.2 g/dl (6.4-8.2)
[2017-07-07 18:26] LABS: INR 1.7 (0.82-1.09); PROTHROMBIN TIME (PATIENT) 19.2 SEC (9.98-11.88)
[2017-07-07] MEDS: THIAMINE HCL 100 MG TABLET (FP) PO SCH (21:39)
[2017-07-07] MEDS: TRIAMCINOLONE ACET 0.5% OINT 15 GM TUBE TP SCH (21:42)
[2017-07-08] MEDS: ZOLPIDEM TARTRATE 5 MG TABLET PO PRN (00:02)
[2017-07-08] MEDS: chlordiazePOXIDE HCL 25 MG CAPSULE PO SCH ×2 (00:02→05:29)
[2017-07-08] MEDS: hydrOXYzine HCL 25 MG TABLET (FP) PO PRN ×3 (00:05→21:25)
[2017-07-08] MEDS: oxyCODONE HCL 5 MG TABLET PO PRN ×3 (02:49→18:47)
[2017-07-08 07:49] LABS: MCH 34.3 pg (25.7-33.7); MCHC 34.7 g/dl (32.0-35.9); MEAN CELL VOLUME 98.9 fl (80-96); MEAN PLT VOLUME 8.8 fl (7.5-11.1); PLATELET COUNT 57 K/MM3 (134-434); RDW 20.4 % (11.9-15.9); WHITE BLOOD COUNT 11.6 K/mm3 (4.0-10.0)
[2017-07-08 07:52] LABS: INR 1.87 (0.82-1.09); PROTHROMBIN TIME (PATIENT) 21.1 SEC (9.98-11.88)
[2017-07-08 08:01] LABS: ALBUMIN 2.5 g/dl (3.4-5.0); ANION GAP 8 (8-16); CALCIUM 8.2 mg/dL (8.5-10.1); CO2 32 mmol/L (21-32); GLUCOSE,RANDOM 168 mg/dL (74-106)
[2017-07-08 08:04] LABS: ALK PHOS 98 U/L (45-117); BILIRUBIN,TOTAL 5.2 mg/dL (0.2-1.0); CREATININE 1.6 mg/dL (0.7-1.3); SGOT/AST 46 U/L (15-37); SGPT/ALT 20 U/L (12-78); TOT PROT 7.1 g/dl (6.4-8.2)
[2017-07-08] MEDS ORDERED: PT OWN MED DRAWER 7, Y5N ONE ×2 (09:32→20:58)
[2017-07-08] MEDS: TRIAMCINOLONE ACET 0.5% OINT 15 GM TUBE TP SCH ×2 (09:39→21:28)
[2017-07-08] MEDS: RIFAXIMIN 550 MG TABLET (UD) PO SCH ×2 (09:41→21:25)
[2017-07-08] MEDS: MAGNESIUM OXIDE 400 MG TABLET (FP) PO SCH ×2 (09:41→21:25)
[2017-07-08] MEDS: FOLIC ACID 1 MG TABLET (FP) PO SCH (09:41)
[2017-07-08] MEDS: PRENATAL VITAMINS W/ FOLIC ACID TABLET (FP) PO SCH (09:41)
[2017-07-08] MEDS: PANTOPRAZOLE 40 MG TABLET (FP) PO SCH ×2 (09:41→21:25)
[2017-07-08] MEDS: FUROSEMIDE 40 MG TABLET (FP) PO SCH (09:41)
[2017-07-08] MEDS: POTASSIUM CHLORIDE TABS 20 MEQ TABLET.ER (FP) PO SCH (09:41)
[2017-07-08] MEDS: HEPARIN NA (PORCINE) 5,000 UNITS/ML 1ML VIAL SQ SCH ×3 (09:42→21:36)
[2017-07-08] MEDS: NADOLOL 40 MG TABLET (FP) PO SCH (09:42)
[2017-07-08] MEDS: chlordiazePOXIDE 5 MG CAPSULE PO SCH ×3 (11:09→23:27)
[2017-07-08] MEDS ORDERED: chlordiazePOXIDE HCL 25 MG CAPSULE PO ONE ×2 (11:21→13:00)
--- NOTE | 2017-07-08 11:26 | PN ---
[facility] Progress Note (SOAP) Subjective: patient c/o sever abdo and back pain, requesting additional librium dose for anxiety and pain relief Objective: 07/08/17 11:24 Vital Signs - 24 hr 07/07/17 07/07/17 07/07/17 14:35 22:00 22:22 Temperature 98.7 F 98.0 F Pulse Rate 79 83 Respiratory 18 20 Rate Blood Pressure 131/73 121/53 O2 Sat by Pulse 96 Oximetry (%) 07/08/17 07/08/17 06:00 08:00 Temperature 99.5 F 98.1 F Pulse Rate 83 84 Respiratory 20 18 Rate Blood Pressure 140/61 140/77 O2 Sat by Pulse 96 Oximetry (%) Laboratory Tests 07/05/17 07/05/17 07/05/17 15:31 15:31 15:42 WBC 12.7 H RBC 2.32 L Hgb 8.5 L Hct 24.1 L MCV 103.9 H MCH 36.7 H MCHC 35.3 RDW 16.9 H Plt Count 103 L MPV 8.9 Neutrophils % 67.5 Lymphocytes % 19.2 Monocytes % 10.3 H Eosinophils % 2.2 Basophils % 0.8 PT with INR INR Sodium Potassium Chloride Carbon Dioxide Anion Gap BUN Creatinine Creat Clearance w eGFR Random Glucose Calcium Total Bilirubin AST ALT Alkaline Phosphatase Ammonia 67.37 H Creatine Kinase Troponin I Total Protein Albumin Urine Color Urine Appearance Urine pH Ur Specific Bogard Urine Protein Urine Glucose (UA) Urine Ketones Urine Blood Urine Nitrite Urine Bilirubin Urine Urobilinogen Ur Leukocyte Esterase Urine WBC (Auto) Urine RBC (Auto) Alcohol, Quantitative Cancelled Blood Type Antibody Screen Crossmatch 07/05/17 07/05/17 07/05/17 15:42 16:20 17:50 WBC RBC Hgb Hct MCV MCH MCHC RDW Plt Count MPV Neutrophils % Lymphocytes % Monocytes % Eosinophils % Basophils % PT with INR INR Sodium Cancelled 143 Potassium Cancelled 3.3 L Chloride Cancelled 100 Carbon Dioxide Cancelled 36 H Anion Gap Cancelled 7 L BUN Cancelled 16 D Creatinine Cancelled 1.0 D Creat Clearance w eGFR Cancelled > 60 Random Glucose Cancelled 182 H Calcium Cancelled 9.0 Total Bilirubin Cancelled 3.8 H D AST Cancelled 68 H ALT Cancelled 27 Alkaline Phosphatase Cancelled 77 D Ammonia Creatine Kinase Cancelled 56 Troponin I Cancelled 0.02 Total Protein Cancelled 7.2 Albumin Cancelled 2.4 L Urine Color Ltyellow Urine Appearance Clear Urine pH 6.0 Ur Specific Bogard 1.004 Urine Protein Negative Urine Glucose (UA) 2+ H Urine Ketones Negative Urine Blood 3+ H Urine Nitrite Negative Urine Bilirubin Negative Urine Urobilinogen Negative Ur Leukocyte Esterase Negative Urine WBC (Auto) <1 Urine RBC (Auto) 3 Alcohol, Quantitative Blood Type Antibody Screen Crossmatch 07/05/17 07/06/17 07/06/17 17:50 07:20 07:20 WBC 11.0 H RBC 2.03 L Hgb 7.3 L D Hct 21.0 L MCV 103.5 H MCH 35.8 H MCHC 34.5 RDW 17.6 H Plt Count 81 L D MPV 8.1 Neutrophils % 67.7 Lymphocytes % 20.3 Monocytes % 9.3 Eosinophils % 2.0 Basophils % 0.7 PT with INR 23.20 H INR 2.05 H Sodium Potassium Chloride Carbon Dioxide Anion Gap BUN Creatinine Creat Clearance w eGFR Random Glucose Calcium Total Bilirubin AST ALT Alkaline Phosphatase Ammonia Creatine Kinase Troponin I Total Protein Albumin Urine Color Urine Appearance Urine pH Ur Specific Bogard Urine Protein Urine Glucose (UA) Urine Ketones Urine Blood Urine Nitrite Urine Bilirubin Urine Urobilinogen Ur Leukocyte Esterase Urine WBC (Auto) Urine RBC (Auto) Alcohol, Quantitative 285.1 H* Blood Type Antibody Screen Crossmatch 07/06/17 07/06/17 07/07/17 07:20 17:15 16:00 WBC 12.0 H RBC 2.68 L D Hgb 9.4 L D Hct 26.8 L D MCV 99.9 H MCH 35.0 H MCHC 35.0 RDW 20.7 H D Plt Count 82 L MPV 8.8 Neutrophils % Lymphocytes % Monocytes % Eosinophils % Basophils % PT with INR INR Sodium 139 Potassium 3.5 Chloride 97 L Carbon Dioxide 32 Anion Gap 10 BUN 14 Creatinine 0.9 Creat Clearance w eGFR > 60 Random Glucose 125 H D Calcium 8.6 Total Bilirubin 4.6 H D AST 61 H ALT 25 Alkaline Phosphatase 75 Ammonia Creatine Kinase Troponin I Total Protein 7.1 Albumin 2.4 L Urine Color Urine Appearance Urine pH Ur Specific Bogard Urine Protein Urine Glucose (UA) Urine Ketones Urine Blood Urine Nitrite Urine Bilirubin Urine Urobilinogen Ur Leukocyte Esterase Urine WBC (Auto) Urine RBC (Auto) Alcohol, Quantitative Blood Type O POSITIVE Antibody Screen Negative Crossmatch See Detail 07/07/17 07/07/17 07/08/17 16:00 16:00 06:35 WBC 11.6 H RBC 2.29 L Hgb 7.9 L D Hct 22.7 L D MCV 98.9 H MCH 34.3 H MCHC 34.7 RDW 20.4 H Plt Count 57 L D MPV 8.8 Neutrophils % Lymphocytes % Monocytes % Eosinophils % Basophils % PT with INR 19.20 H INR 1.70 H Sodium 133 L Potassium 4.2 Chloride 93 L Carbon Dioxide 36 H Anion Gap 4 L BUN 17 D Creatinine 1.5 H D Creat Clearance w eGFR 48.77 Random Glucose 168 H D Calcium 8.1 L Total Bilirubin 7.2 H D AST 55 H ALT 22 Alkaline Phosphatase 101 D Ammonia Creatine Kinase Troponin I Total Protein 8.2 Albumin 2.7 L Urine Color Urine Appearance Urine pH Ur Specific Bogard Urine Protein Urine Glucose (UA) Urine Ketones Urine Blood Urine Nitrite Urine Bilirubin Urine Urobilinogen Ur Leukocyte Esterase Urine WBC (Auto) Urine RBC (Auto) Alcohol, Quantitative Blood Type Antibody Screen Crossmatch 07/08/17 07/08/17 06:35 06:35 WBC RBC Hgb Hct MCV MCH MCHC RDW Plt Count MPV Neutrophils % Lymphocytes % Monocytes % Eosinophils % Basophils % PT with INR 21.10 H INR 1.87 H Sodium 134 L Potassium 3.9 Chloride 94 L Carbon Dioxide 32 Anion Gap 8 BUN 20 H Creatinine 1.6 H Creat Clearance w eGFR 45.27 Random Glucose 168 H Calcium 8.2 L Total Bilirubin 5.2 H D AST 46 H ALT 20 Alkaline Phosphatase 98 Ammonia Creatine Kinase Troponin I Total Protein 7.1 Albumin 2.5 L Urine Color Urine Appearance Urine pH Ur Specific Bogard Urine Protein Urine Glucose (UA) Urine Ketones Urine Blood Urine Nitrite Urine Bilirubin Urine Urobilinogen Ur Leukocyte Esterase Urine WBC (Auto) Urine RBC (Auto) Alcohol, Quantitative Blood Type Antibody Screen Crossmatch macrocytic anemia, elevated bun and creatinine , hypoalbuminemia, abnormal lfts. ambulating without assistance, slight tremor noted, a and o x3, appears much imporved Assessment: 07/08/17 11:25 alcohol withdrawal, end stage liver disease, cont detox as ordered, libirum 50mg x1 dose ordered to relieve pain and anxiety currently experienced by patient
--- NOTE | 2017-07-08 13:27 | PN ---
Progress Note, Physician History of Present Illness: No acute events overnight. Clinically the same. - Current Medication List Current Medications: Active Medications Chlordiazepoxide HCl (Librium -) 15 mg PO [id number] [facility] Stop: 07/09/17 05:01 Last Admin: 07/08/17 11:09 Dose: 15 mg Chlordiazepoxide HCl (Librium -) 25 mg PO Q4H PRN PRN Reason: WITHDRAWAL(CONT SUBST) Stop: 07/09/17 11:43 Last Admin: 07/07/17 20:17 Dose: 25 mg Folic Acid (Folic Acid -) 1 mg PO DAILY [facility] Last Admin: 07/08/17 09:41 Dose: 1 mg Furosemide (Lasix -) 40 mg PO DAILY [facility] Last Admin: 07/08/17 09:41 Dose: 40 mg Heparin Sodium (Porcine) (Heparin -) 5,000 unit SQ BID [facility] Last Admin: 07/08/17 09:42 Dose: 5,000 unit Hydroxyzine HCl (Atarax -) 25 mg PO Q6H PRN PRN Reason: FOR ITCHING Last Admin: 07/08/17 07:53 Dose: 25 mg Lactulose (Cephulac (Oral Use)) 20 gm PO TID PRN PRN Reason: CONSTIPATION Magnesium Oxide (Mag-Ox -) 400 mg PO BID [facility] Last Admin: 07/08/17 09:41 Dose: 400 mg Nadolol (Corgard -) 40 mg PO DAILY [facility] Last Admin: 07/08/17 09:42 Dose: 40 mg Oxycodone HCl (Roxicodone -) 5 mg PO Q4H PRN PRN Reason: PAIN Last Admin: 07/08/17 07:52 Dose: 5 mg Pantoprazole Sodium (Protonix -) 40 mg PO BID [facility] Last Admin: 07/08/17 09:41 Dose: 40 mg Potassium Chloride (K-Dur -) 20 meq PO DAILY [facility] Last Admin: 07/08/17 09:41 Dose: 20 meq Multivit/Folic Acid/Iron ( Vitamins (Sjr) -) 1 tab PO DAILY [facility] Last Admin: 07/08/17 09:41 Dose: 1 tab Rifaximin (Xifaxan -) 550 mg PO BID [facility] Last Admin: 07/08/17 09:41 Dose: 550 mg Thiamine HCl (Vitamin B1 -) 100 mg PO HS [facility] Last Admin: 12/06/17 21:39 Dose: 100 mg Triamcinolone Acetonide (Aristocort 0.5% Ointment -) 1 applic TP BID [facility] Last Admin: 07/08/17 09:39 Dose: 1 applic Zolpidem Tartrate (Ambien -) 5 mg PO HS PRN PRN Reason: INSOMNIA Last Admin: 07/08/17 00:02 Dose: 5 mg - Objective Vital Signs: Vital Signs Temperature 98.1 F 07/08/17 08:00 Pulse Rate 84 07/08/17 08:00 Respiratory Rate 18 07/08/17 08:00 Blood Pressure 140/77 07/08/17 08:00 O2 Sat by Pulse Oximetry (%) 96 07/08/17 06:00 Constitutional: Yes: Calm Gastrointestinal: Yes: Soft, Ascites, Distention. No: Melena, Rectal Bleeding, Tenderness, Vomiting Neurological: Yes: Alert, Oriented, Asterixis Labs: CBC, BMP 07/08/17 06:35 07/08/17 06:35 INR, PTT INR 1.87 (0.82-1.09) H 07/08/17 06:35 Abnormal Lab Results 07/07/17 07/07/17 07/07/17 16:00 16:00 16:00 WBC 12.0 H RBC 2.68 L D Hgb 9.4 L D Hct 26.8 L D MCV 99.9 H MCH 35.0 H RDW 20.7 H D Plt Count 82 L PT with INR 19.20 H INR 1.70 H Sodium 133 L Chloride 93 L Carbon Dioxide 36 H Anion Gap 4 L BUN Creatinine 1.5 H D Random Glucose 168 H D Calcium 8.1 L Total Bilirubin 7.2 H D AST 55 H Albumin 2.7 L 07/08/17 07/08/17 07/08/17 06:35 06:35 06:35 WBC 11.6 H RBC 2.29 L Hgb 7.9 L D Hct 22.7 L D MCV 98.9 H MCH 34.3 H RDW 20.4 H Plt Count 57 L D PT with INR 21.10 H INR 1.87 H Sodium 134 L Chloride 94 L Carbon Dioxide Anion Gap BUN 20 H Creatinine 1.6 H Random Glucose 168 H Calcium 8.2 L Total Bilirubin 5.2 H D AST 46 H Albumin 2.5 L Problem List - Problems (1) Alcohol dependence with uncomplicated withdrawal Code(s): F10.230 - ALCOHOL DEPENDENCE WITH WITHDRAWAL, UNCOMPLICATED (2) Alcoholic cirrhosis Code(s): K70.30 - ALCOHOLIC CIRRHOSIS OF LIVER WITHOUT ASCITES Qualifiers: Ascites presence: with ascites Qualified Code(s): K70.31 - Alcoholic cirrhosis of liver with ascites (3) Hepatic encephalopathy Code(s): K72.90 - HEPATIC FAILURE, UNSPECIFIED WITHOUT COMA (4) Alcohol intoxication Code(s): F10.929 - ALCOHOL USE, UNSPECIFIED WITH INTOXICATION, UNSPECIFIED Qualifiers: Complication of substance-induced condition: uncomplicated Qualified Code(s ): F10.920 - Alcohol use, unspecified with intoxication, uncomplicated (5) Anemia Code(s): D64.9 - ANEMIA, UNSPECIFIED Qualifiers: Anemia type: unspecified type Qualified Code(s): D64.9 - Anemia, unspecified (6) Jaundice Code(s): R17 - UNSPECIFIED JAUNDICE Assessment/Plan worsening renal function, clinically the same. Not on aldactone. Recommend Urine electrolytes, renal consult, 500 cc NS IV challenge 2 gm salt diet restriction Aldactone 100 mg/day Lasix 40 mg/day Rifaximin 550 bid stop Nadolol Reduce lactulose to 1 dose/day alcohol withdrawal protocol, monitor for DT CBC, CMP daily
--- NOTE | 2017-07-08 13:31 | DS ---
Physical Examination Vital Signs: Vital Signs Temperature 98.1 F 07/08/17 08:00 Pulse Rate 84 07/08/17 08:00 Respiratory Rate 18 07/08/17 08:00 Blood Pressure 140/77 07/08/17 08:00 O2 Sat by Pulse Oximetry (%) 96 07/08/17 06:00 Constitutional: Yes: Calm Eyes: Yes: Sclera Icterus Neck: Yes: Trachea Midline Cardiovascular: Yes: Regular Rate and Rhythm, S1, S2 Respiratory: Yes: CTA Bilaterally, Diminished (at bases) Gastrointestinal: Yes: Soft, Ascites, Distention Extremities: Yes: Other (chronic changes of skin) Edema: Yes Integumentary: Yes: Rash (psoaritic) Neurological: Yes: Alert, Oriented Labs: CBC, BMP 07/08/17 06:35 07/08/17 06:35 Discharge Summary Reason For Visit: ALCOHOL ABUSE,FALL,DEHYDRATION Current Active Problems Alcohol dependence with uncomplicated withdrawal (Acute) Alcoholic cirrhosis (Acute) Dehydration (Acute) Head injury (Acute) Hepatic encephalopathy (Acute) Hospital Course: 52-year-old male history of depression, alcohol cirrhosis complicated by ascites , varices and encephalopathy,recently taken off transplant list as patient continues to drink, status post rehabilitation over one year ago, hypertension, brought in by for fall in setting of alcohol intake today. Of note, I saw patient for exact same thing [address] was normal. Labs were baseline and patient was discharged in care of family after a period of observation in the ED were patient sobered up. Patient does not remember details of fall but does admit to drinking today. states her niece found patient lying on the floor an hour or 2 ago. Patient denying any pain at this time and is oriented 3. No GODWIN, dizziness, visual changes, focal weakness, CP, SOB, neck or back pain. As per , patient and family wants patient to go to a detox facility but not to [facility]. States she has a facility in mind and that she contacted Dr Ashley who wants pt admitted to be medically tuned up prior to being transferred to a detox facility - Past Medical History Cardiovascular: Yes: HTN Gastrointestinal: Yes: Ascites Hepatobiliary: Yes: Cirrhosis (Alcohol induced, decompensated), Other (History of severe alcoholic hepatitis, hepatic encephalopathy) Musculoskeletal: Yes: Other (Cellulitis and tenosynovitis +/- osteomyelitis 3rd/ 4th digit of left hand) Dermatology: Yes: Cellulitis (of LE and of hand), Psoriasis - Smoking History Smoking history: Never smoked Have you smoked in the past 12 months: No - Alcohol/Substance Use Hx Alcohol Use: Yes History of Substance Use: reports: None - Social History ADL: Independent seen by detox team on librium protocol seen by jonny as well got vitamin K for elevate INR 2 gm salt diet restriction Aldactone 100 mg/day Lasix 40 mg/day Rifaximin 550 bid Nadolol 40 mg/daily (do not give if HR < 60 BPM Lactulose dose decrease to one bm/day alcohol withdrawal protocol, monitor for DT psoaritic rash on steroid cream and atarax [facility] for [facility] rehab Condition: Fair - Instructions Disposition: TRANSFER ACUTE CARE/OTHER HOSP - Home Medications Comprehensive Discharge Medication List: Ambulatory Orders Thiamine HCl [Vitamin B1] 100 mg PO DAILY 12/21/16 Magnesium Oxide [Mag-Ox -] 400 mg PO BID tablet 06/02/17 Betamethasone Dipropionate [Diprosone 0.05% Cream -] 1 applic TP BID #60 gr Folic Acid - 1 mg PO DAILY #30 tablet 06/23/17 Furosemide [Lasix -] 40 mg PO DAILY #30 tablet 06/23/17 Hydroxyzine HCl [Atarax -] 25 mg PO Q6H PRN #60 tablet 06/23/17 Lactulose (Oral Use) [Cephulac -] 20 gm PO DAILY #900 ml 06/23/17 Nadolol [Corgard -] 40 mg PO DAILY #30 tablet 06/23/17 Pantoprazole Sodium [Protonix -] 40 mg PO BID #60 tab 06/23/17 Rifaximin [Xifaxan -] 550 mg PO BID #60 tablet 06/23/17 Diazepam [Valium] 10 mg PO HS #5 tablet MDD 1 06/24/17 Oxycodone HCl [Oxaydo] 5 mg PO QID #15 tablet.orl MDD 4 06/24/17
--- NOTE | 2017-07-08 13:41 | PN ---
Progress Note (short form) - Note Progress Note: awating bed at inpatient facilty for inpatient [facility] rehab in [facility]
--- NOTE | 2017-07-08 14:38 | PN ---
Progress Note (short form) - Note Progress Note: Patient seen and examined. all consults noted. he still complains of "total" body pains. c/o diarrhea, upset about that ( on lactulose ). Constitutional: Yes:sleepy Eyes: Yes: Sclera Icterus Cardiovascular: Yes: Regular Rate and Rhythm Respiratory: Yes: Regular Gastrointestinal Inspection: Yes: Ascites, Distention ...Palpate: No: Firm/Rigid, Guarding, Tenderness ...Percussion: Yes: Fluid Wave Edema: Yes Edema: LLE: 2+, RLE: 2+ Neurological: Yes: Alert, Oriented, Tremors Labs: Last Vital Signs Temp Pulse Resp BP Pulse Ox 98.1 F 84 18 140/77 96 07/08/17 08:00 07/08/17 08:00 07/08/17 08:00 07/08/17 08:00 07/08/17 06:00 CBC, BMP 07/08/17 06:35 07/08/17 06:35 Current Medications Generic Name Dose Route Start Last Admin Trade Name Wolfq PRN Reason Stop Dose Admin Chlordiazepoxide HCl 15 mg 07/08/17 11:00 07/08/17 11:09 Librium - PO 07/09/17 05:01 15 mg [id number] [facility] Administration Folic Acid 1 mg 07/06/17 10:00 07/08/17 09:41 Folic Acid - PO 1 mg DAILY [facility] Administration Furosemide 40 mg 07/06/17 10:00 07/08/17 09:41 Lasix - PO 40 mg DAILY [facility] Administration Heparin Sodium (Porcine) 5,000 unit 07/05/17 22:00 07/08/17 09:42 Heparin - SQ 5,000 unit BID [facility] Administration Hydroxyzine HCl 25 mg 07/05/17 16:31 07/08/17 07:53 Atarax - PO 25 mg Q6H PRN Administration FOR ITCHING Lactulose 20 gm 07/07/17 15:26 Cephulac (Oral Use) PO TID PRN CONSTIPATION Magnesium Oxide 400 mg 07/05/17 22:00 07/08/17 09:41 Mag-Ox - PO 400 mg BID [facility] Administration Oxycodone HCl 5 mg 07/07/17 14:34 07/08/17 07:52 Roxicodone - PO 5 mg Q4H PRN Administration PAIN Pantoprazole Sodium 40 mg 07/05/17 22:00 07/08/17 09:41 Protonix - PO 40 mg BID [facility] Administration Potassium Chloride 20 meq 07/07/17 10:00 07/08/17 09:41 K-Dur - PO 20 meq DAILY [facility] Administration Multivit/Folic Acid/Iron 1 tab 07/06/17 12:00 07/08/17 09:41 Vitamins (Sjr) - PO 1 tab DAILY [facility] Administration Rifaximin 550 mg 07/05/17 22:00 07/08/17 09:41 Xifaxan - PO 550 mg BID [facility] Administration Thiamine HCl 100 mg 07/06/17 22:00 07/07/17 21:39 Vitamin B1 - PO 100 mg HS [facility] Administration Triamcinolone Acetonide 1 applic 07/07/17 22:00 07/08/17 09:39 Aristocort 0.5% Ointment - TP 1 applic BID [facility] Administration Zolpidem Tartrate 5 mg 07/06/17 22:00 07/08/17 00:02 Ambien - PO 5 mg HS PRN Administration INSOMNIA Decompensated alcohol induced cirrhosis: macrocytic anemia ETOH toxicity Thrombocytopenia coagulopathy anemia: multifactorial reviewed his Anemia labs, consistent with ACD/ACI hemolysis ( due to liver disease ? spur cell anemia)+ chronic disease his last review of labs is likely consistent with mild hemolysis His labs worse than yesterday Pt refusing packed cells today.will order repeat CBC to determine the need for transfusion, if going low he might be more receptive, will give slowly HypoNa/Worsening Cr noted today 1.6 ?HRS will continue supportive care labs for tomorrow s/p Vit K repletion. hold dvt ppx for platelets <50K watch for ETOH WD.
[2017-07-08 16:26] VITALS: BMI 34.0
--- NOTE | 2017-07-08 16:26 | CON.NEP ---
Consult Consult Specialty:: Nephrology Referred by:: Dr. Jefferson Reason for Consultation:: Acute Kidney Injury - History of Present Illness Chief Complaint: Alcohol intoxican History of Present Illness: This is a 52 year old gentleman with PMhx of Alcohol Liver cirrhosis, ETOH Abuse , Psoriasis, Hx of PATRICIA/CKD presents s/p alcohol intake/intoxicated and developed PATRICIA during the hospitalization. Pt reports back pain, denies any N/V/D , SOB. + LE swelling. Pt has been on oral Lasix. No contrast exposure. No NSAID use. Pt reports making urine. No hematuria, flank pain. Poor oral intake. - History Source History Provided By: Patient Limitations to Obtaining History: No Limitations - Past Medical History Cardio/Vascular: Yes: HTN Gastrointestinal: Yes: Ascites Hepatobiliary: Yes: Cirrhosis (Alcohol induced, decompensated), Other (History of severe alcoholic hepatitis, hepatic encephalopathy) Psych: Yes: Depression Musculoskeletal: Yes: Other (Cellulitis and tenosynovitis +/- osteomyelitis 3rd/ 4th digit of left hand) Dermatology: Yes: Cellulitis (of LE and of hand), Psoriasis - Alcohol/Substance Use Hx Alcohol Use: Yes History of Substance Use: reports: None - Smoking History Smoking history: Never smoked Have you smoked in the past 12 months: No - Social History Usual Living Arrangement: With Significant Other (two teenage daughters) ADL: Independent Occupation: disabled History of Recent Travel: No Home Medications - Allergies Allergies/Adverse Reactions: Allergies Allergy/AdvReac Type Severity Reaction Status Date / Time No Known Allergies Allergy Verified 07/05/17 15:14 - Home Medications Home Medications: Ambulatory Orders Thiamine HCl [Vitamin B1] 100 mg PO DAILY 12/21/16 Magnesium Oxide [Mag-Ox -] 400 mg PO BID tablet 06/02/17 Betamethasone Dipropionate [Diprosone 0.05% Cream -] 1 applic TP BID #60 gr Folic Acid - 1 mg PO DAILY #30 tablet 06/23/17 Furosemide [Lasix -] 40 mg PO DAILY #30 tablet 06/23/17 Hydroxyzine HCl [Atarax -] 25 mg PO Q6H PRN #60 tablet 06/23/17 Lactulose (Oral Use) [Cephulac -] 20 gm PO DAILY #900 ml 06/23/17 Nadolol [Corgard -] 40 mg PO DAILY #30 tablet 06/23/17 Pantoprazole Sodium [Protonix -] 40 mg PO BID #60 tab 06/23/17 Rifaximin [Xifaxan -] 550 mg PO BID #60 tablet 06/23/17 Family Disease History - Family Disease History Family History: Unremarkable Review of Systems - Review of Systems Constitutional: reports: No Symptoms Eyes: reports: No Symptoms HENT: reports: No Symptoms Neck: reports: No Symptoms Cardiovascular: reports: No Symptoms Respiratory: reports: No Symptoms Gastrointestinal: reports: No Symptoms Genitourinary: reports: No Symptoms Breasts: reports: No Symptoms Reported Musculoskeletal: reports: Back Pain Integumentary: reports: No Symptoms Nephrology Consult - Height Height: 5 ft 6 in - Weight Weight: 95.481 kg - BMI Body Mass Index (BMI): 34.0 - Lab Results CBC,BMP: CBC, BMP 07/08/17 06:35 07/08/17 06:35 Anion Gap: Anion Gap Anion Gap 8 (8-16) 07/08/17 06:35 - Imaging Chest X-ray: Report Reviewed - Physical Examination Vital Signs: Vital Signs Temperature 98.2 F 07/08/17 15:02 Pulse Rate 77 07/08/17 15:02 Respiratory Rate 18 07/08/17 15:02 Blood Pressure 119/70 07/08/17 15:02 O2 Sat by Pulse Oximetry (%) 97 07/08/17 14:00 Constitutional: Yes: No Distress, Calm Eyes: Yes: Conjunctiva Clear HENT: Yes: Atraumatic Neck: Yes: Supple Cardiovascular: Yes: Regular Rate and Rhythm, S1, S2. No: JVD, Murmur Respiratory: Yes: Regular, CTA Bilaterally Gastrointestinal: Yes: Normal Bowel Sounds, Soft Extremities: Yes: Erythema. No: Calf Tenderness, Cold, Cool, Cyanosis Edema: Yes Edema: LLE: 2+, RLE: 2+ Neurological: Yes: Alert, Oriented Assessment/Plan 52 year old gentleman with PMhx of Alcohol Liver cirrhosis, ETOH Abuse, Psoriasis, Hx of PATRICIA/CKD presents s/p alcohol intake/intoxicated and developed PATRICIA during the hospitalization. #Acute Kidney Injury in setting of cirrhosis/diuretics/Anemia Check urine studies with next void would hold Lasix for now despite LE edema (3rd spacing) pt likely with intravascular depletion vs. 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 Thank you Will follow Ronaldo Gonzalez DO
[2017-07-08] MEDS ORDERED: SODIUM CHLORIDE 1,000 ML IV SCH (16:45)
[2017-07-08 18:08] LABS: MCH 34.7 pg (25.7-33.7); MCHC 34.4 g/dl (32.0-35.9); MEAN CELL VOLUME 100.8 fl (80-96); MEAN PLT VOLUME 9.3 fl (7.5-11.1); PLATELET COUNT 66 K/MM3 (134-434); RDW 20.3 % (11.9-15.9); WHITE BLOOD COUNT 12.2 K/mm3 (4.0-10.0)
[2017-07-08] MEDS ORDERED: ALBUMIN HUMAN 25% 12.5 GM/50 ML VIAL IVPB SCH (19:00)
[2017-07-08] MEDS: OCTREOTIDE ACETATE 100 MCG/1 ML SQ SCH (21:25)
[2017-07-08] MEDS: THIAMINE HCL 100 MG TABLET (FP) PO SCH (21:25)
[2017-07-08] MEDS: ALBUMIN HUMAN 25% 12.5 GM/50 ML VIAL IVPB SCH (21:26)
[2017-07-09] MEDS: oxyCODONE HCL 5 MG TABLET PO PRN ×4 (00:16→17:36)
[2017-07-09] MEDS: ALBUMIN HUMAN 25% 12.5 GM/50 ML VIAL IVPB SCH ×3 (02:49→15:20)
[2017-07-09] MEDS: chlordiazePOXIDE 5 MG CAPSULE PO SCH (04:48)
[2017-07-09 05:09] LABS: URINE APPEARANCE CLEAR; URINE BILIRUBIN NEGATIVE (NEGATIVE); URINE BLOOD 3+ (NEGATIVE); URINE COLOR LTYELLOW; URINE GLUCOSE (UA) NEGATIVE (NEGATIVE); URINE KETONE NEGATIVE (NEGATIVE); URINE LEUK ESTERASE NEGATIVE (NEGATIVE); URINE NITRITE NEGATIVE (NEGATIVE); URINE PROTEIN NEGATIVE (NEGATIVE); URINE UROBILINOGEN NEGATIVE mg/dL (0.2-1.0)
[2017-07-09] MEDS ORDERED: PT OWN MED DRAWER 7, Y5N ONE ×5 (05:45→22:27)
[2017-07-09] MEDS: OCTREOTIDE ACETATE 100 MCG/1 ML SQ SCH ×3 (05:48→22:35)
[2017-07-09 06:16] LABS: URINE WBC <1 /hpf (3-5)
[2017-07-09 06:21] LABS: URINE RBC 10 /hpf (0-3)
[2017-07-09] MEDS: TRIAMCINOLONE ACET 0.5% OINT 15 GM TUBE TP SCH ×2 (10:00→22:36)
[2017-07-09 10:18] LABS: MCHC 34.8 g/dl (32.0-35.9); MEAN CELL VOLUME 100.7 fl (80-96); MEAN PLT VOLUME 8.7 fl (7.5-11.1); PLATELET COUNT 58 K/MM3 (134-434); RDW 20.3 % (11.9-15.9)
[2017-07-09 10:50] LABS: ALK PHOS 98 U/L (45-117); ANION GAP 7 (8-16); BILIRUBIN,TOTAL 5.3 mg/dL (0.2-1.0); CALCIUM 8.1 mg/dL (8.5-10.1); CO2 31 mmol/L (21-32); CREATININE 1.8 mg/dL (0.7-1.3); GLUCOSE,RANDOM 164 mg/dL (74-106); MAGNESIUM 1.9 mg/dL (1.8-2.4); PHOSPHOROUS 3.1 mg/dL (2.5-4.9); SGOT/AST 40 U/L (15-37); SGPT/ALT 20 U/L (12-78); TOT PROT 8.1 g/dl (6.4-8.2)
--- NOTE | 2017-07-09 11:09 | PN ---
Progress Note (short form) - Note Progress Note: Patient seen and examined. all consults noted. feels the same Constitutional: Yes:sleepy Eyes: Yes: Sclera Icterus Cardiovascular: Yes: Regular Rate and Rhythm Respiratory: Yes: Regular Gastrointestinal Inspection: Yes: Ascites, Distention ...Palpate: No: Firm/Rigid, Guarding, Tenderness ...Percussion: Yes: Fluid Wave Edema: Yes Edema: LLE: 2+, RLE: 2+ Neurological: Yes: Alert, Oriented, Tremors Labs: Last Vital Signs Temp Pulse Resp BP Pulse Ox 98.5 F 74 20 123/72 97 07/09/17 06:00 07/09/17 06:00 07/09/17 06:00 07/09/17 06:00 07/09/17 06:00 CBC, BMP 07/09/17 10:13 07/09/17 10:13 Current Medications Generic Name Dose Route Start Last Admin Trade Name Freq PRN Reason Stop Dose Admin Albumin Human 25 gm 07/08/17 21:00 07/09/17 02:49 Albumin Human 25% IVPB 25 gm Q6H-IV VANITA Administration Folic Acid 1 mg 07/06/17 10:00 07/08/17 09:41 Folic Acid - PO 1 mg DAILY VANITA Administration Furosemide 40 mg 07/06/17 10:00 07/08/17 09:41 Lasix - PO 40 mg DAILY VANITA Administration Heparin Sodium (Porcine) 5,000 unit 07/05/17 22:00 07/08/17 21:36 Heparin - SQ Not Given BID VANITA Hydroxyzine HCl 25 mg 07/05/17 16:31 07/08/17 21:25 Atarax - PO 25 mg Q6H PRN Administration FOR ITCHING Lactulose 20 gm 07/07/17 15:26 Cephulac (Oral Use) PO TID PRN CONSTIPATION Magnesium Oxide 400 mg 07/05/17 22:00 07/08/17 21:25 Mag-Ox - PO 400 mg BID VANITA Administration Octreotide Acetate 100 mcg 07/08/17 20:15 07/09/17 05:48 Sandostatin - SQ 100 mcg TID VANITA Administration Oxycodone HCl 5 mg 07/07/17 14:34 07/09/17 05:48 Roxicodone - PO 5 mg Q4H PRN Administration PAIN Pantoprazole Sodium 40 mg 07/05/17 22:00 07/08/17 21:25 Protonix - PO 40 mg BID VANITA Administration Potassium Chloride 20 meq 07/07/17 10:00 07/08/17 09:41 K-Dur - PO 20 meq DAILY VANITA Administration Multivit/Folic Acid/Iron 1 tab 07/06/17 12:00 07/08/17 09:41 Vitamins (Sjr) - PO 1 tab DAILY VANITA Administration Rifaximin 550 mg 07/05/17 22:00 07/08/17 21:25 Xifaxan - PO 550 mg BID VANITA Administration Thiamine HCl 100 mg 07/06/17 22:00 07/08/17 21:25 Vitamin B1 - PO 100 mg HS VANITA Administration Triamcinolone Acetonide 1 applic 07/07/17 22:00 07/08/17 21:28 Aristocort 0.5% Ointment - TP 1 applic BID VANITA Administration Zolpidem Tartrate 5 mg 07/06/17 22:00 07/08/17 00:02 Ambien - PO 5 mg HS PRN Administration INSOMNIA Decompensated alcohol induced cirrhosis: macrocytic anemia ETOH toxicity Thrombocytopenia coagulopathy anemia: multifactorial His CBC stable. appreciate renal c/s , f/u CMP from today will continue supportive care hold dvt ppx for platelets <50K watch for ETOH WD. d.c planning as per PMD
[2017-07-09] MEDS: HEPARIN NA (PORCINE) 5,000 UNITS/ML 1ML VIAL SQ SCH ×2 (11:34→22:35)
[2017-07-09] MEDS: PANTOPRAZOLE 40 MG TABLET (FP) PO SCH ×2 (11:34→22:35)
[2017-07-09] MEDS: FOLIC ACID 1 MG TABLET (FP) PO SCH (11:34)
[2017-07-09] MEDS: POTASSIUM CHLORIDE TABS 20 MEQ TABLET.ER (FP) PO SCH (11:34)
[2017-07-09] MEDS: RIFAXIMIN 550 MG TABLET (UD) PO SCH ×2 (11:34→22:34)
[2017-07-09] MEDS: PRENATAL VITAMINS W/ FOLIC ACID TABLET (FP) PO SCH (11:35)
[2017-07-09] MEDS: MAGNESIUM OXIDE 400 MG TABLET (FP) PO SCH ×2 (11:35→22:35)
--- NOTE | 2017-07-09 12:10 | PN ---
Progress Note (short form) - Note Progress Note: Renal Follow up for PATRICIA Pt seen and examined at the bedside no acute complaints no sob, chest pain, abd pain Legs remain swollen no dizziness, lightheadedness making urine Vital Signs Temperature 98.5 F 07/09/17 06:00 Pulse Rate 74 07/09/17 06:00 Respiratory Rate 20 07/09/17 06:00 Blood Pressure 123/72 07/09/17 06:00 O2 Sat by Pulse Oximetry (%) 97 07/09/17 06:00 Intake & Output 07/06/17 07/07/17 07/08/17 07/09/17 23:59 23:59 23:59 23:59 Intake Total 250 1100 200 Balance 250 1100 200 Weight 92.193 kg 94.035 kg 95.481 kg 97.267 kg NAD awake and alert RRR CTA + Abd distension >2+ LE edema CBC, BMP 07/09/17 10:13 07/09/17 10:13 Current Medications Albumin Human (Albumin Human 25%) 25 gm IVPB Q6H-IV VANITA Last Admin: 07/09/17 11:36 Dose: 25 gm Folic Acid (Folic Acid -) 1 mg PO DAILY VANITA Last Admin: 07/09/17 11:34 Dose: 1 mg Furosemide (Lasix -) 40 mg PO DAILY [facility] Last Admin: 07/08/17 09:41 Dose: 40 mg Heparin Sodium (Porcine) (Heparin -) 5,000 unit SQ BID VANITA Last Admin: 07/09/17 11:34 Dose: 5,000 unit Hydroxyzine HCl (Atarax -) 25 mg PO Q6H PRN PRN Reason: FOR ITCHING Last Admin: 07/08/17 21:25 Dose: 25 mg Lactulose (Cephulac (Oral Use)) 20 gm PO TID PRN PRN Reason: CONSTIPATION Magnesium Oxide (Mag-Ox -) 400 mg PO BID [facility] Last Admin: 07/09/17 11:35 Dose: 400 mg Midodrine (Proamatine -) 5 mg PO TID-MID [facility] Octreotide Acetate (Sandostatin -) 100 mcg SQ TID VANITA Last Admin: 07/09/17 05:48 Dose: 100 mcg Oxycodone HCl (Roxicodone -) 5 mg PO Q4H PRN PRN Reason: PAIN Last Admin: 07/09/17 05:48 Dose: 5 mg Pantoprazole Sodium (Protonix -) 40 mg PO BID [facility] Last Admin: 07/09/17 11:34 Dose: 40 mg Potassium Chloride (K-Dur -) 20 meq PO DAILY [facility] Last Admin: 07/09/17 11:34 Dose: 20 meq Multivit/Folic Acid/Iron ( Vitamins (Sjr) -) 1 tab PO DAILY [facility] Last Admin: 07/09/17 11:35 Dose: 1 tab Rifaximin (Xifaxan -) 550 mg PO BID [facility] Last Admin: 07/09/17 11:34 Dose: 550 mg Thiamine HCl (Vitamin B1 -) 100 mg PO HS [facility] Last Admin: 07/08/17 21:25 Dose: 100 mg Triamcinolone Acetonide (Aristocort 0.5% Ointment -) 1 applic TP BID [facility] Last Admin: 07/08/17 21:28 Dose: 1 applic Zolpidem Tartrate (Ambien -) 5 mg PO HS PRN PRN Reason: INSOMNIA Last Admin: 07/08/17 00:02 Dose: 5 mg A/P 52 year old gentleman with PMhx of Alcohol Liver cirrhosis, ETOH Abuse, Psoriasis, Hx of PATRICIA/CKD presents s/p alcohol intake/intoxicated and developed PATRICIA during the hospitalization. #Acute Kidney Injury in setting of cirrhosis/diuretics/Anemia Etiology appears to be Hepto-Renal Syndrome Urine studies showed a Low Na, and thus preserved tubular function goal is to preserve or improve renal profusion continue IV Albumin, Octreotide SC and Midodrine Keep MAP > 65 Low salt diet, 1L fluid restriction daily Trend BUN/Cr would hold diuretics for now #Liver cirrhosis/ETOH intoxication Supportive Care for inpatient De-tox/Rehab placement #Anemia/thrombocytopenia Heme following Transfuse as per their recommendations. Ronaldo Gonzalez DO
--- NOTE | 2017-07-09 12:37 | PN ---
Progress Note, Physician Chief Complaint: patient is awake and alert was expecting to leave facility today but given his renal function elevated and after discussing with renal team he will stay for the weekend i spoke to Dr Hilliard at [phone], email is [email or web address] about the patient he wants him to be completely medically stable prior to sending him for rehab facility. explained to him patient condition, he is not ready to leave today maybe next week - Current Medication List Current Medications: Active Medications Albumin Human (Albumin Human 25%) 25 gm IVPB Q6H-IV VANITA Last Admin: 07/09/17 11:36 Dose: 25 gm Folic Acid (Folic Acid -) 1 mg PO DAILY VANITA Last Admin: 07/09/17 11:34 Dose: 1 mg Furosemide (Lasix -) 40 mg PO DAILY [facility] Last Admin: 07/08/17 09:41 Dose: 40 mg Heparin Sodium (Porcine) (Heparin -) 5,000 unit SQ BID [facility] Last Admin: 07/09/17 11:34 Dose: 5,000 unit Hydroxyzine HCl (Atarax -) 25 mg PO Q6H PRN PRN Reason: FOR ITCHING Last Admin: 07/08/17 21:25 Dose: 25 mg Lactulose (Cephulac (Oral Use)) 20 gm PO TID PRN PRN Reason: CONSTIPATION Magnesium Oxide (Mag-Ox -) 400 mg PO BID [facility] Last Admin: 07/09/17 11:35 Dose: 400 mg Midodrine (Proamatine -) 5 mg PO TID-MID VANITA Octreotide Acetate (Sandostatin -) 100 mcg SQ TID [facility] Last Admin: 07/09/17 05:48 Dose: 100 mcg Oxycodone HCl (Roxicodone -) 5 mg PO Q4H PRN PRN Reason: PAIN Last Admin: 07/09/17 05:48 Dose: 5 mg Pantoprazole Sodium (Protonix -) 40 mg PO BID [facility] Last Admin: 07/09/17 11:34 Dose: 40 mg Potassium Chloride (K-Dur -) 20 meq PO DAILY [facility] Last Admin: 07/09/17 11:34 Dose: 20 meq Multivit/Folic Acid/Iron ( Vitamins (Sjr) -) 1 tab PO DAILY VANITA Last Admin: 07/09/17 11:35 Dose: 1 tab Rifaximin (Xifaxan -) 550 mg PO BID [facility] Last Admin: 07/09/17 11:34 Dose: 550 mg Thiamine HCl (Vitamin B1 -) 100 mg PO HS [facility] Last Admin: 07/08/17 21:25 Dose: 100 mg Triamcinolone Acetonide (Aristocort 0.5% Ointment -) 1 applic TP BID [facility] Last Admin: 07/08/17 21:28 Dose: 1 applic Zolpidem Tartrate (Ambien -) 5 mg PO HS PRN PRN Reason: INSOMNIA Last Admin: 07/08/17 00:02 Dose: 5 mg - Objective Vital Signs: Vital Signs Temperature 98.5 F 07/09/17 06:00 Pulse Rate 74 07/09/17 06:00 Respiratory Rate 20 07/09/17 06:00 Blood Pressure 123/72 07/09/17 06:00 O2 Sat by Pulse Oximetry (%) 97 07/09/17 06:00 Constitutional: Yes: Calm Eyes: Yes: Sclera Icterus Cardiovascular: Yes: Regular Rate and Rhythm, S1, S2 Respiratory: Yes: CTA Bilaterally Gastrointestinal: Yes: Normal Bowel Sounds, Soft, Ascites, Distention Edema: Yes Integumentary: Yes: Venous Stasis Changes Psychiatric: Yes: Alert, Oriented Labs: CBC, BMP 07/09/17 10:13 07/09/17 10:13 INR, PTT INR 1.87 (0.82-1.09) H 07/08/17 06:35 Problem List - Problems (1) Hepatorenal syndrome Assessment/Plan: renal consult appreicated getting albumin, midodrine and octreotide needs daily lab work- to monitor renal function possible discharge early next week if medically stable Code(s): K76.7 - HEPATORENAL SYNDROME (2) Alcohol dependence with uncomplicated withdrawal Assessment/Plan: completed the librium protocol folate and B1 spoke to Dr hilliadr [place] once he is medically ready then only will he go to the facility Code(s): F10.230 - ALCOHOL DEPENDENCE WITH WITHDRAWAL, UNCOMPLICATED (3) Alcoholic cirrhosis Assessment/Plan: rifaximin lacutlose to one BM per day lasix and K dur Code(s): K70.30 - ALCOHOLIC CIRRHOSIS OF LIVER WITHOUT ASCITES Qualifiers: Ascites presence: with ascites Qualified Code(s): K70.31 - Alcoholic cirrhosis of liver with ascites (4) Thrombocytopenia Assessment/Plan: if platelet count < 50K will stop heparin Code(s): D69.6 - THROMBOCYTOPENIA, UNSPECIFIED (5) Anemia Assessment/Plan: transfuse if h/h < 7.5 marcocytic anemia on folic acid Code(s): D64.9 - ANEMIA, UNSPECIFIED Qualifiers: Anemia type: unspecified type Qualified Code(s): D64.9 - Anemia, unspecified (6) Psoriasis Assessment/Plan: topical steroidal cream Code(s): L40.9 - PSORIASIS, UNSPECIFIED
--- NOTE | 2017-07-09 12:50 | PN ---
S Progress Note (SOAP) Subjective: no comp;aints, ambulating without assistnace, reports discharge delayed until tomorrow. no complaints Objective: 07/09/17 12:49 Vital Signs - 24 hr 07/08/17 07/08/17 07/08/17 14:00 15:02 22:00 Temperature 98.2 F 98 F Pulse Rate 77 79 Respiratory 18 20 Rate Blood Pressure 119/70 146/66 O2 Sat by Pulse 97 97 Oximetry (%) 07/08/17 07/09/17 07/09/17 22:37 06:00 10:00 Temperature 98.0 F 98.5 F 98.2 F Pulse Rate 81 74 79 Respiratory 20 20 18 Rate Blood Pressure 148/20 123/72 119/86 O2 Sat by Pulse 97 Oximetry (%) Laboratory Tests 07/05/17 07/05/17 07/05/17 15:31 15:31 15:42 WBC 12.7 H RBC 2.32 L Hgb 8.5 L Hct 24.1 L MCV 103.9 H MCH 36.7 H MCHC 35.3 RDW 16.9 H Plt Count 103 L MPV 8.9 Neutrophils % 67.5 Lymphocytes % 19.2 Monocytes % 10.3 H Eosinophils % 2.2 Basophils % 0.8 Hypersegmented Neuts Hypochromia Toxic Granulation Dohle Bodies Polychromasia Poikilocytosis Basophilic Stippling Anisocytosis Microcytosis Macrocytosis Spherocytes Siderocytes Sickle Cells Target Cells Tear Drop Cells Ovalocytes Stomatocytes Helmet Cells Pate[place] Bodies [place] Rings [place] Cells Acanthocytes (Spur) Rouleaux Fragmented RBCs Schistocytes Morphology Comment PT with INR INR Sodium Potassium Chloride Carbon Dioxide Anion Gap BUN Creatinine Creat Clearance w eGFR Random Glucose Calcium Phosphorus Magnesium Total Bilirubin AST ALT Alkaline Phosphatase Ammonia 67.37 H Creatine Kinase Troponin I Total Protein Albumin Urine Color Urine Appearance Urine pH Ur Specific [place] Urine Protein Urine Glucose (UA) Urine Ketones Urine Blood Urine Nitrite Urine Bilirubin Urine Urobilinogen Ur Leukocyte Esterase Urine WBC (Auto) Urine RBC (Auto) Ur Random Sodium Ur Random Urea Nitrogn Urine Creatinine Alcohol, Quantitative Cancelled Blood Type Antibody Screen Crossmatch 07/05/17 07/05/17 07/05/17 15:42 16:20 17:50 WBC RBC Hgb Hct MCV MCH MCHC RDW Plt Count MPV Neutrophils % Lymphocytes % Monocytes % Eosinophils % Basophils % Hypersegmented Neuts Hypochromia Toxic Granulation Dohle Bodies Polychromasia Poikilocytosis Basophilic Stippling Anisocytosis Microcytosis Macrocytosis Spherocytes Siderocytes Sickle Cells Target Cells Tear Drop Cells Ovalocytes Stomatocytes Helmet Cells [place] Bodies [place] Rings [place] Cells Acanthocytes (Spur) Rouleaux Fragmented RBCs Schistocytes Morphology Comment PT with INR INR Sodium Cancelled 143 Potassium Cancelled 3.3 L Chloride Cancelled 100 Carbon Dioxide Cancelled 36 H Anion Gap Cancelled 7 L BUN Cancelled 16 D Creatinine Cancelled 1.0 D Creat Clearance w eGFR Cancelled > 60 Random Glucose Cancelled 182 H Calcium Cancelled 9.0 Phosphorus Magnesium Total Bilirubin Cancelled 3.8 H D AST Cancelled 68 H ALT Cancelled 27 Alkaline Phosphatase Cancelled 77 D Ammonia Creatine Kinase Cancelled 56 Troponin I Cancelled 0.02 Total Protein Cancelled 7.2 Albumin Cancelled 2.4 L Urine Color Ltyellow Urine Appearance Clear Urine pH 6.0 Ur Specific [place] 1.004 Urine Protein Negative Urine Glucose (UA) 2+ H Urine Ketones Negative Urine Blood 3+ H Urine Nitrite Negative Urine Bilirubin Negative Urine Urobilinogen Negative Ur Leukocyte Esterase Negative Urine WBC (Auto) <1 Urine RBC (Auto) 3 Ur Random Sodium Ur Random Urea Nitrogn Urine Creatinine Alcohol, Quantitative Blood Type Antibody Screen Crossmatch 07/05/17 07/06/17 07/06/17 17:50 07:20 07:20 WBC 11.0 H RBC 2.03 L Hgb 7.3 L D Hct 21.0 L MCV 103.5 H MCH 35.8 H MCHC 34.5 RDW 17.6 H Plt Count 81 L D MPV 8.1 Neutrophils % 67.7 Lymphocytes % 20.3 Monocytes % 9.3 Eosinophils % 2.0 Basophils % 0.7 Hypersegmented Neuts Hypochromia Toxic Granulation Dohle Bodies Polychromasia Poikilocytosis Basophilic Stippling Anisocytosis Microcytosis Macrocytosis Spherocytes Siderocytes Sickle Cells Target Cells Tear Drop Cells Ovalocytes Stomatocytes Helmet Cells [place] Bodies [place] Rings [place] Cells Acanthocytes (Spur) Rouleaux Fragmented RBCs Schistocytes Morphology Comment PT with INR 23.20 H INR 2.05 H Sodium Potassium Chloride Carbon Dioxide Anion Gap BUN Creatinine Creat Clearance w eGFR Random Glucose Calcium Phosphorus Magnesium Total Bilirubin AST ALT Alkaline Phosphatase Ammonia Creatine Kinase Troponin I Total Protein Albumin Urine Color Urine Appearance Urine pH Ur Specific [place] Urine Protein Urine Glucose (UA) Urine Ketones Urine Blood Urine Nitrite Urine Bilirubin Urine Urobilinogen Ur Leukocyte Esterase Urine WBC (Auto) Urine RBC (Auto) Ur Random Sodium Ur Random Urea Nitrogn Urine Creatinine Alcohol, Quantitative 285.1 H* Blood Type Antibody Screen Crossmatch 07/06/17 07/06/17 07/07/17 07:20 17:15 16:00 WBC 12.0 H RBC 2.68 L D Hgb 9.4 L D Hct 26.8 L D MCV 99.9 H MCH 35.0 H MCHC 35.0 RDW 20.7 H D Plt Count 82 L MPV 8.8 Neutrophils % Lymphocytes % Monocytes % Eosinophils % Basophils % Hypersegmented Neuts Hypochromia Toxic Granulation Dohle Bodies Polychromasia Poikilocytosis Basophilic Stippling Anisocytosis Microcytosis Macrocytosis Spherocytes Siderocytes Sickle Cells Target Cells Tear Drop Cells Ovalocytes Stomatocytes Helmet Cells [place] Bodies [place] Rings [place] Cells Acanthocytes (Spur) Rouleaux Fragmented RBCs Schistocytes Morphology Comment PT with INR INR Sodium 139 Potassium 3.5 Chloride 97 L Carbon Dioxide 32 Anion Gap 10 BUN 14 Creatinine 0.9 Creat Clearance w eGFR > 60 Random Glucose 125 H D Calcium 8.6 Phosphorus Magnesium Total Bilirubin 4.6 H D AST 61 H ALT 25 Alkaline Phosphatase 75 Ammonia Creatine Kinase Troponin I Total Protein 7.1 Albumin 2.4 L Urine Color Urine Appearance Urine pH Ur Specific [place] Urine Protein Urine Glucose (UA) Urine Ketones Urine Blood Urine Nitrite Urine Bilirubin Urine Urobilinogen Ur Leukocyte Esterase Urine WBC (Auto) Urine RBC (Auto) Ur Random Sodium Ur Random Urea Nitrogn Urine Creatinine Alcohol, Quantitative Blood Type O POSITIVE Antibody Screen Negative Crossmatch See Detail 07/07/17 07/07/17 07/08/17 16:00 16:00 06:35 WBC 11.6 H RBC 2.29 L Hgb 7.9 L D Hct 22.7 L D MCV 98.9 H MCH 34.3 H MCHC 34.7 RDW 20.4 H Plt Count 57 L D MPV 8.8 Neutrophils % Lymphocytes % Monocytes % Eosinophils % Basophils % Hypersegmented Neuts Hypochromia Toxic Granulation Dohle Bodies Polychromasia Poikilocytosis Basophilic Stippling Anisocytosis Microcytosis Macrocytosis Spherocytes Siderocytes Sickle Cells Target Cells Tear Drop Cells Ovalocytes Stomatocytes Helmet Cells [place] Bodies [place] Rings [place] Cells Acanthocytes (Spur) Rouleaux Fragmented RBCs Schistocytes Morphology Comment PT with INR 19.20 H INR 1.70 H Sodium 133 L Potassium 4.2 Chloride 93 L Carbon Dioxide 36 H Anion Gap 4 L BUN 17 D Creatinine 1.5 H D Creat Clearance w eGFR 48.77 Random Glucose 168 H D Calcium 8.1 L Phosphorus Magnesium Total Bilirubin 7.2 H D AST 55 H ALT 22 Alkaline Phosphatase 101 D Ammonia Creatine Kinase Troponin I Total Protein 8.2 Albumin 2.7 L Urine Color Urine Appearance Urine pH Ur Specific [place] Urine Protein Urine Glucose (UA) Urine Ketones Urine Blood Urine Nitrite Urine Bilirubin Urine Urobilinogen Ur Leukocyte Esterase Urine WBC (Auto) Urine RBC (Auto) Ur Random Sodium Ur Random Urea Nitrogn Urine Creatinine Alcohol, Quantitative Blood Type Antibody Screen Crossmatch 07/08/17 07/08/17 07/08/17 06:35 06:35 17:00 WBC 12.2 H RBC 2.62 L Hgb 9.1 L D Hct 26.4 L D MCV 100.8 H MCH 34.7 H MCHC 34.4 RDW 20.3 H Plt Count 66 L MPV 9.3 Neutrophils % Lymphocytes % Monocytes % Eosinophils % Basophils % Hypersegmented Neuts Hypochromia Toxic Granulation Dohle Bodies Polychromasia Poikilocytosis Basophilic Stippling Anisocytosis Microcytosis Macrocytosis Spherocytes Siderocytes Sickle Cells Target Cells Tear Drop Cells Ovalocytes Stomatocytes Helmet Cells [place] Bodies [place] Rings [place] Cells Acanthocytes (Spur) Rouleaux Fragmented RBCs Schistocytes Morphology Comment PT with INR 21.10 H INR 1.87 H Sodium 134 L Potassium 3.9 Chloride 94 L Carbon Dioxide 32 Anion Gap 8 BUN 20 H Creatinine 1.6 H Creat Clearance w eGFR 45.27 Random Glucose 168 H Calcium 8.2 L Phosphorus Magnesium Total Bilirubin 5.2 H D AST 46 H ALT 20 Alkaline Phosphatase 98 Ammonia Creatine Kinase Troponin I Total Protein 7.1 Albumin 2.5 L Urine Color Urine Appearance Urine pH Ur Specific [place] Urine Protein Urine Glucose (UA) Urine Ketones Urine Blood Urine Nitrite Urine Bilirubin Urine Urobilinogen Ur Leukocyte Esterase Urine WBC (Auto) Urine RBC (Auto) Ur Random Sodium Ur Random Urea Nitrogn Urine Creatinine Alcohol, Quantitative Blood Type Antibody Screen Crossmatch 07/09/17 07/09/17 07/09/17 03:00 03:00 03:00 WBC RBC Hgb Hct MCV MCH MCHC RDW Plt Count MPV Neutrophils % Lymphocytes % Monocytes % Eosinophils % Basophils % Hypersegmented Neuts Hypochromia Toxic Granulation Dohle Bodies Polychromasia Poikilocytosis Basophilic Stippling Anisocytosis Microcytosis Macrocytosis Spherocytes Siderocytes Sickle Cells Target Cells Tear Drop Cells Ovalocytes Stomatocytes Helmet Cells [place] Bodies [place] Rings [place] Cells Acanthocytes (Spur) Rouleaux Fragmented RBCs Schistocytes Morphology Comment PT with INR INR Sodium Potassium Chloride Carbon Dioxide Anion Gap BUN Creatinine Creat Clearance w eGFR Random Glucose Calcium Phosphorus Magnesium Total Bilirubin AST ALT Alkaline Phosphatase Ammonia Creatine Kinase Troponin I Total Protein Albumin Urine Color Ltyellow Urine Appearance Clear Urine pH 6.0 Ur Specific [place] 1.003 Urine Protein Negative Urine Glucose (UA) Negative Urine Ketones Negative Urine Blood 3+ H Urine Nitrite Negative Urine Bilirubin Negative Urine Urobilinogen Negative Ur Leukocyte Esterase Urine WBC (Auto) <1 Urine RBC (Auto) 10 Ur Random Sodium 8 Ur Random Urea Nitrogn 165 Urine Creatinine Alcohol, Quantitative Blood Type Antibody Screen Crossmatch 07/09/17 07/09/17 07/09/17 03:00 10:13 10:13 WBC 11.0 H RBC 2.41 L Hgb 8.4 L Hct 24.2 L MCV 100.7 H MCH 35.0 H MCHC 34.8 RDW 20.3 H Plt Count 58 L MPV 8.7 Neutrophils % Lymphocytes % Monocytes % Eosinophils % Basophils % Hypersegmented Neuts Cancelled Hypochromia Cancelled Toxic Granulation Cancelled Dohle Bodies Cancelled Polychromasia Cancelled Poikilocytosis Cancelled Basophilic Stippling Cancelled Anisocytosis Cancelled Microcytosis Cancelled Macrocytosis Cancelled Spherocytes Cancelled Siderocytes Cancelled Sickle Cells Cancelled Target Cells Cancelled Tear Drop Cells Cancelled Ovalocytes Cancelled Stomatocytes Cancelled Helmet Cells Cancelled [place] Bodies Cancelled [place] Rings Cancelled [place] Cells Cancelled Acanthocytes (Spur) Cancelled Rouleaux Cancelled Fragmented RBCs Cancelled Schistocytes Cancelled Morphology Comment Cancelled PT with INR INR Sodium 132 L Potassium 4.3 Chloride 94 L Carbon Dioxide 31 Anion Gap 7 L BUN 25 H D Creatinine 1.8 H Creat Clearance w eGFR 39.52 Random Glucose 164 H Calcium 8.1 L Phosphorus 3.1 Magnesium 1.9 Total Bilirubin 5.3 H AST 40 H ALT 20 Alkaline Phosphatase 98 Ammonia Creatine Kinase Troponin I Total Protein 8.1 Albumin 3.0 L Urine Color Urine Appearance Urine pH Ur Specific [place] Urine Protein Urine Glucose (UA) Urine Ketones Urine Blood Urine Nitrite Urine Bilirubin Urine Urobilinogen Ur Leukocyte Esterase Urine WBC (Auto) Urine RBC (Auto) Ur Random Sodium Ur Random Urea Nitrogn Urine Creatinine 25.6 Alcohol, Quantitative Blood Type Antibody Screen Crossmatch Assessment: 07/09/17 12:50 completed detox, can be transferred to inpatient rehab as organized. Dallas James MD [phone]
--- NOTE | 2017-07-09 14:05 | PN ---
Progress Note, Physician History of Present Illness: No acute events overnight. Clinically the same. Nephrology evaluation noted - Current Medication List Current Medications: Active Medications Albumin Human (Albumin Human 25%) 25 gm IVPB Q6H-IV [facility] Last Admin: 07/09/17 11:36 Dose: 25 gm Folic Acid (Folic Acid -) 1 mg PO DAILY [facility] Last Admin: 07/09/17 11:34 Dose: 1 mg Furosemide (Lasix -) 40 mg PO DAILY [facility] Last Admin: 07/08/17 09:41 Dose: 40 mg Heparin Sodium (Porcine) (Heparin -) 5,000 unit SQ BID [facility] Last Admin: 07/09/17 11:34 Dose: 5,000 unit Hydroxyzine HCl (Atarax -) 25 mg PO Q6H PRN PRN Reason: FOR ITCHING Last Admin: 07/08/17 21:25 Dose: 25 mg Lactulose (Cephulac (Oral Use)) 20 gm PO TID PRN PRN Reason: CONSTIPATION Magnesium Oxide (Mag-Ox -) 400 mg PO BID [facility] Last Admin: 07/09/17 11:35 Dose: 400 mg Midodrine (Proamatine -) 5 mg PO TID-MID [facility] Octreotide Acetate (Sandostatin -) 100 mcg SQ TID [facility] Last Admin: 07/09/17 05:48 Dose: 100 mcg Oxycodone HCl (Roxicodone -) 5 mg PO Q4H PRN PRN Reason: PAIN Last Admin: 07/09/17 12:32 Dose: 5 mg Pantoprazole Sodium (Protonix -) 40 mg PO BID [facility] Last Admin: 07/09/17 11:34 Dose: 40 mg Multivit/Folic Acid/Iron ( Vitamins (Sjr) -) 1 tab PO DAILY [facility] Last Admin: 07/09/17 11:35 Dose: 1 tab Rifaximin (Xifaxan -) 550 mg PO BID [facility] Last Admin: 07/09/17 11:34 Dose: 550 mg Thiamine HCl (Vitamin B1 -) 100 mg PO HS [facility] Last Admin: 07/08/17 21:25 Dose: 100 mg Triamcinolone Acetonide (Aristocort 0.5% Ointment -) 1 applic TP BID [facility] Last Admin: 07/08/17 21:28 Dose: 1 applic Zolpidem Tartrate (Ambien -) 5 mg PO HS PRN PRN Reason: INSOMNIA Last Admin: 07/08/17 00:02 Dose: 5 mg - Objective Vital Signs: Vital Signs Temperature 98.2 F 07/09/17 10:00 Pulse Rate 79 07/09/17 10:00 Respiratory Rate 18 07/09/17 10:00 Blood Pressure 119/86 07/09/17 10:00 O2 Sat by Pulse Oximetry (%) 97 07/09/17 06:00 Constitutional: Yes: Calm Gastrointestinal: Yes: Soft, Ascites, Distention. No: Tenderness, Tenderness, Epigastrium Neurological: Yes: Alert, Oriented, Asterixis, Tremors Labs: CBC, BMP 07/09/17 10:13 07/09/17 10:13 INR, PTT INR 1.87 (0.82-1.09) H 07/08/17 06:35 Abnormal Lab Results 07/08/17 07/09/17 07/09/17 17:00 03:00 10:13 WBC 12.2 H 11.0 H RBC 2.62 L 2.41 L Hgb 9.1 L D 8.4 L Hct 26.4 L D 24.2 L MCV 100.8 H 100.7 H MCH 34.7 H 35.0 H RDW 20.3 H 20.3 H Plt Count 66 L 58 L Sodium Chloride Anion Gap BUN Creatinine Random Glucose Calcium Total Bilirubin AST Albumin Urine Blood 3+ H 07/09/17 10:13 WBC RBC Hgb Hct MCV MCH RDW Plt Count Sodium 132 L Chloride 94 L Anion Gap 7 L BUN 25 H D Creatinine 1.8 H Random Glucose 164 H Calcium 8.1 L Total Bilirubin 5.3 H AST 40 H Albumin 3.0 L Urine Blood Problem List - Problems (1) Alcohol dependence with uncomplicated withdrawal Code(s): F10.230 - ALCOHOL DEPENDENCE WITH WITHDRAWAL, UNCOMPLICATED (2) Alcoholic cirrhosis Code(s): K70.30 - ALCOHOLIC CIRRHOSIS OF LIVER WITHOUT ASCITES Qualifiers: Ascites presence: with ascites Qualified Code(s): K70.31 - Alcoholic cirrhosis of liver with ascites (3) Hepatic encephalopathy Code(s): K72.90 - HEPATIC FAILURE, UNSPECIFIED WITHOUT COMA (4) Alcohol intoxication Code(s): F10.929 - ALCOHOL USE, UNSPECIFIED WITH INTOXICATION, UNSPECIFIED Qualifiers: Complication of substance-induced condition: uncomplicated Qualified Code(s ): F10.920 - Alcohol use, unspecified with intoxication, uncomplicated (5) Anemia Code(s): D64.9 - ANEMIA, UNSPECIFIED Qualifiers: Anemia type: unspecified type Qualified Code(s): D64.9 - Anemia, unspecified (6) Jaundice Code(s): R17 - UNSPECIFIED JAUNDICE Assessment/Plan HRS Type 2 Agree with albumin, midodrine, octreotide Lacutose and Rifaximin CBC, CMP daily 2 gm salt diet restriction
[2017-07-09] MEDS: MIDODRINE HCL 5 MG TABLET PO SCH ×2 (15:31→17:36)
[2017-07-09] MEDS: hydrOXYzine HCL 25 MG TABLET (FP) PO PRN (17:36)
[2017-07-09 17:41] LABS: URINE LEUK ESTERASE Negative (NEGATIVE)
[2017-07-09] MEDS: THIAMINE HCL 100 MG TABLET (FP) PO SCH (22:34)
[2017-07-10] MEDS: oxyCODONE HCL 5 MG TABLET PO PRN ×2 (00:11→18:59)
[2017-07-10] MEDS: hydrOXYzine HCL 25 MG TABLET (FP) PO PRN ×4 (00:11→22:23)
[2017-07-10] MEDS ORDERED: chlordiazePOXIDE 5 MG CAPSULE PO ONE (01:28)
[2017-07-10] MEDS: OCTREOTIDE ACETATE 100 MCG/1 ML SQ SCH ×3 (06:15→22:23)
[2017-07-10 08:31] LABS: BASO % 0.5 % (0-2.0); EOS % 3.2 % (0-4.5); MCH 34.9 pg (25.7-33.7); MCHC 34.6 g/dl (32.0-35.9); MEAN CELL VOLUME 100.9 fl (80-96); MEAN PLT VOLUME 8.8 fl (7.5-11.1); RDW 20.3 % (11.9-15.9); WHITE BLOOD COUNT 9.3 K/mm3 (4.0-10.0)
[2017-07-10 09:01] LABS: ALBUMIN 2.8 g/dl (3.4-5.0); ANION GAP 7 (8-16); CALCIUM 8.5 mg/dL (8.5-10.1); CO2 30 mmol/L (21-32); GLUCOSE,RANDOM 187 mg/dL (74-106)
[2017-07-10 09:03] LABS: ALK PHOS 107 U/L (45-117); BILIRUBIN,TOTAL 4.6 mg/dL (0.2-1.0); CREATININE 1.7 mg/dL (0.7-1.3); SGOT/AST 36 U/L (15-37); SGPT/ALT 19 U/L (12-78); TOT PROT 7.8 g/dl (6.4-8.2)
[2017-07-10 09:30] LABS: ANISOCYTOSIS 1+; HYPOCHROMIA 1+; MACROCYTOSIS 1+; MICROCYTOSIS 1+; PLATELET COMMENTS NO CLUMPING NOTED; PLATELET COUNT 63 K/MM3 (134-434); PLATELET ESTIMATE DECREASED
[2017-07-10] MEDS ORDERED: PT OWN MED DRAWER 7, Y5N ONE ×3 (10:43→22:18)
[2017-07-10] MEDS: TRIAMCINOLONE ACET 0.5% OINT 15 GM TUBE TP SCH ×2 (10:48→22:24)
[2017-07-10] MEDS: RIFAXIMIN 550 MG TABLET (UD) PO SCH ×2 (10:49→22:23)
[2017-07-10] MEDS: PRENATAL VITAMINS W/ FOLIC ACID TABLET (FP) PO SCH (10:49)
[2017-07-10] MEDS: HEPARIN NA (PORCINE) 5,000 UNITS/ML 1ML VIAL SQ SCH ×2 (10:49→22:23)
[2017-07-10] MEDS: MAGNESIUM OXIDE 400 MG TABLET (FP) PO SCH ×2 (10:49→22:22)
[2017-07-10] MEDS: MIDODRINE HCL 5 MG TABLET PO SCH ×3 (10:49→18:32)
[2017-07-10] MEDS: FOLIC ACID 1 MG TABLET (FP) PO SCH (10:49)
[2017-07-10] MEDS: PANTOPRAZOLE 40 MG TABLET (FP) PO SCH ×2 (10:49→22:22)
--- NOTE | 2017-07-10 11:02 | PN ---
Progress Note (short form) - Note Progress Note: Renal Follow up for PATRICIA Pt seen and examined at the bedside has back pain no sob, chest pain, abd pain making urine bp stable Vital Signs Temperature 97.8 F 07/10/17 08:00 Pulse Rate 74 07/10/17 08:00 Respiratory Rate 18 07/10/17 08:00 Blood Pressure 125/76 07/10/17 08:00 O2 Sat by Pulse Oximetry (%) 97 07/10/17 08:33 Intake & Output 07/07/17 07/08/17 07/09/17 07/10/17 23:59 23:59 23:59 23:59 Intake Total 1100 200 750 Balance 1100 200 750 Weight 94.035 kg 95.481 kg 97.267 kg 99.337 kg NAD awake and alert RRR CTA + Abd distension >2+ LE edema CBC, BMP 07/10/17 07:30 07/10/17 07:30 Current Medications Albumin Human (Albumin Human 25%) 25 gm IVPB Q6H [facility] Stop: 07/11/17 05:01 Folic Acid (Folic Acid -) 1 mg PO DAILY [facility] Last Admin: 07/10/17 10:49 Dose: 1 mg Furosemide (Lasix -) 40 mg PO DAILY [facility] Last Admin: 07/08/17 09:41 Dose: 40 mg Heparin Sodium (Porcine) (Heparin -) 5,000 unit SQ BID [facility] Last Admin: 07/10/17 10:49 Dose: 5,000 unit Hydroxyzine HCl (Atarax -) 25 mg PO Q6H PRN PRN Reason: FOR ITCHING Last Admin: 07/10/17 08:19 Dose: 25 mg Lactulose (Cephulac (Oral Use)) 20 gm PO TID PRN PRN Reason: CONSTIPATION Magnesium Oxide (Mag-Ox -) 400 mg PO BID [facility] Last Admin: 07/10/17 10:49 Dose: 400 mg Midodrine (Proamatine -) 5 mg PO TID-MID [facility] Last Admin: 07/10/17 10:49 Dose: 5 mg Octreotide Acetate (Sandostatin -) 100 mcg SQ TID [facility] Last Admin: 07/10/17 06:15 Dose: 100 mcg Oxycodone HCl (Roxicodone -) 5 mg PO Q4H PRN PRN Reason: PAIN Last Admin: 07/10/17 00:11 Dose: 5 mg Pantoprazole Sodium (Protonix -) 40 mg PO BID [facility] Last Admin: 07/10/17 10:49 Dose: 40 mg Multivit/Folic Acid/Iron ( Vitamins (Sjr) -) 1 tab PO DAILY [facility] Last Admin: 07/10/17 10:49 Dose: 1 tab Rifaximin (Xifaxan -) 550 mg PO BID [facility] Last Admin: 07/10/17 10:49 Dose: 550 mg Thiamine HCl (Vitamin B1 -) 100 mg PO HS [facility] Last Admin: 07/09/17 22:34 Dose: 100 mg Triamcinolone Acetonide (Aristocort 0.5% Ointment -) 1 applic TP BID [facility] Last Admin: 07/10/17 10:48 Dose: 1 applic Zolpidem Tartrate (Ambien -) 5 mg PO HS PRN PRN Reason: INSOMNIA Last Admin: 07/08/17 00:02 Dose: 5 mg A/P 52 year old gentleman with PMhx of Alcohol Liver cirrhosis, ETOH Abuse, Psoriasis, Hx of PATRICIA/CKD presents s/p alcohol intake/intoxicated and developed PATRICIA during the hospitalization. #Acute Kidney Injury in setting of cirrhosis/diuretics/Anemia Etiology appears to be Hepto-Renal Syndrome Type 2 renal function appears stable at this time would continue Albumin/Octreotide/Midodrine an additional 24 hours Trend BUN/Cr and electrolytes low sodium diet, fluid restriction #Liver cirrhosis/ETOH intoxication Supportive Care for inpatient De-tox/Rehab placement #Anemia/thrombocytopenia Heme following Transfuse as per their recommendations. Ronaldo Gonzalez DO
[2017-07-10] MEDS: ALBUMIN HUMAN 25% 12.5 GM/50 ML VIAL IVPB SCH ×3 (12:05→21:14)
--- NOTE | 2017-07-10 12:33 | PN ---
GI Progress Note Subjective: GI NOte (covering Dr Craig) : Encephalopathic but arousable and conversant. is at the bedside. I explained the serious nature of hepatorenal syndrome and Carlos A overall status. She is concerned about his leg swelling. - Objective Vital Signs: Vital Signs Temperature 97.8 F 07/10/17 08:00 Pulse Rate 74 07/10/17 08:00 Respiratory Rate 18 07/10/17 08:00 Blood Pressure 125/76 07/10/17 08:00 O2 Sat by Pulse Oximetry (%) 97 07/10/17 08:33 Laboratory Tests 07/07/17 07/09/17 07/10/17 16:00 10:13 07:30 WBC 9.3 Hgb 8.3 L Plt Count 63 L BUN 25 H D Creatinine 1.8 H Total Bilirubin 7.2 H D 5.3 H AST ALT Alkaline Phosphatase Albumin 07/10/17 07:30 WBC Hgb Plt Count BUN 28 H Creatinine 1.7 H Total Bilirubin 4.6 H AST 36 ALT 19 Alkaline Phosphatase 107 Albumin 2.8 L Constitutional: Other (Encephalopathic) Eyes: Yes: Sclera Icterus Cardiovascular: Yes: Regular Rate and Rhythm Respiratory: Yes: CTA Bilaterally Gastrointestinal Inspection: Yes: Distention ...Auscultate: Yes: Normoactive Bowel Sounds ...Palpate: Yes: Soft, Other (nontender) Edema: LLE: 4+ (erythematous blistering), RLE: 4+ (erythematous and blistering) Labs: CBC, BMP 07/10/17 07:30 07/10/17 07:30 INR, PTT INR 1.87 (0.82-1.09) H 07/08/17 06:35 Problem List - Problems (1) Alcoholic cirrhosis Assessment/Plan: Bilirubin is fortunately decreasing but he remains high risk, particularly given the HRS. Code(s): K70.30 - ALCOHOLIC CIRRHOSIS OF LIVER WITHOUT ASCITES Qualifiers: Ascites presence: with ascites Qualified Code(s): K70.31 - Alcoholic cirrhosis of liver with ascites (2) Hepatic encephalopathy Assessment/Plan: Having loss BMs with lactulose and is receiving xifaxan as well. No obvious bleeding but may have cellulitis aggravating the encephalopathy. Will consult ID Code(s): K72.90 - HEPATIC FAILURE, UNSPECIFIED WITHOUT COMA (3) Hepatorenal syndrome Assessment/Plan: Renal function has fortunately plateaued with midodrine, albumin and octreotide. Dr Gonzalez's efforts are appreciated Code(s): K76.7 - HEPATORENAL SYNDROME
--- NOTE | 2017-07-10 12:47 | PN ---
Progress Note, Physician - Current Medication List Current Medications: Active Medications Albumin Human (Albumin Human 25%) 25 gm IVPB Q6H-IV [facility] Stop: 07/11/17 03:01 Last Admin: 07/10/17 12:05 Dose: 25 gm Folic Acid (Folic Acid -) 1 mg PO DAILY [facility] Last Admin: 07/10/17 10:49 Dose: 1 mg Furosemide (Lasix -) 40 mg PO DAILY [facility] Last Admin: 07/08/17 09:41 Dose: 40 mg Heparin Sodium (Porcine) (Heparin -) 5,000 unit SQ BID [facility] Last Admin: 07/10/17 10:49 Dose: 5,000 unit Hydroxyzine HCl (Atarax -) 25 mg PO Q6H PRN PRN Reason: FOR ITCHING Last Admin: 07/10/17 08:19 Dose: 25 mg Lactulose (Cephulac (Oral Use)) 20 gm PO TID PRN PRN Reason: CONSTIPATION Magnesium Oxide (Mag-Ox -) 400 mg PO BID [facility] Last Admin: 07/10/17 10:49 Dose: 400 mg Midodrine (Proamatine -) 5 mg PO TID-MID [facility] Last Admin: 07/10/17 10:49 Dose: 5 mg Octreotide Acetate (Sandostatin -) 100 mcg SQ TID [facility] Last Admin: 07/10/17 06:15 Dose: 100 mcg Oxycodone HCl (Roxicodone -) 5 mg PO Q4H PRN PRN Reason: PAIN Last Admin: 07/10/17 00:11 Dose: 5 mg Pantoprazole Sodium (Protonix -) 40 mg PO BID [facility] Last Admin: 07/10/17 10:49 Dose: 40 mg Multivit/Folic Acid/Iron ( Vitamins (Sjr) -) 1 tab PO DAILY [facility] Last Admin: 07/10/17 10:49 Dose: 1 tab Rifaximin (Xifaxan -) 550 mg PO BID [facility] Last Admin: 07/10/17 10:49 Dose: 550 mg Thiamine HCl (Vitamin B1 -) 100 mg PO HS [facility] Last Admin: 07/09/17 22:34 Dose: 100 mg Triamcinolone Acetonide (Aristocort 0.5% Ointment -) 1 applic TP BID [facility] Last Admin: 07/10/17 10:48 Dose: 1 applic Zolpidem Tartrate (Ambien -) 5 mg PO HS PRN PRN Reason: INSOMNIA Last Admin: 07/08/17 00:02 Dose: 5 mg - Objective Vital Signs: Vital Signs Temperature 97.8 F 07/10/17 08:00 Pulse Rate 74 07/10/17 08:00 Respiratory Rate 18 07/10/17 08:00 Blood Pressure 125/76 07/10/17 08:00 O2 Sat by Pulse Oximetry (%) 97 07/10/17 08:33 Cardiovascular: Yes: S1, S2 Respiratory: Yes: Regular, CTA Bilaterally Gastrointestinal: Yes: Normal Bowel Sounds, Soft, Abdomen, Obese, Ascites Extremities: Yes: Erythema Edema: Yes Labs: CBC, BMP 07/10/17 07:30 07/10/17 07:30 INR, PTT INR 1.87 (0.82-1.09) H 07/08/17 06:35 Problem List - Problems (1) Alcoholic cirrhosis Code(s): K70.30 - ALCOHOLIC CIRRHOSIS OF LIVER WITHOUT ASCITES Qualifiers: Ascites presence: with ascites Qualified Code(s): K70.31 - Alcoholic cirrhosis of liver with ascites (2) Alcohol intoxication Code(s): F10.929 - ALCOHOL USE, UNSPECIFIED WITH INTOXICATION, UNSPECIFIED Qualifiers: Complication of substance-induced condition: uncomplicated Qualified Code(s ): F10.920 - Alcohol use, unspecified with intoxication, uncomplicated (3) Anemia Code(s): D64.9 - ANEMIA, UNSPECIFIED Qualifiers: Anemia type: unspecified type Qualified Code(s): D64.9 - Anemia, unspecified Assessment/Plan - Problems (1) Hepatorenal syndrome Assessment/Plan: renal consult appreciated getting albumin, midodrine and octreotide needs daily lab work- to monitor renal function possible discharge early next week if medically stable Code(s): K76.7 - HEPATORENAL SYNDROME (2) Alcohol dependence with uncomplicated withdrawal Assessment/Plan: completed the librium protocol folate and B1 [facility] is medically ready then only will he go to the facility Code(s): F10.230 - ALCOHOL DEPENDENCE WITH WITHDRAWAL, UNCOMPLICATED (3) Alcoholic cirrhosis Assessment/Plan: rifaximin lacutlose to one BM per day lasix and K dur Code(s): K70.30 - ALCOHOLIC CIRRHOSIS OF LIVER WITHOUT ASCITES Qualifiers: Ascites presence: with ascites Qualified Code(s): K70.31 - Alcoholic cirrhosis of liver with ascites (4) Thrombocytopenia Assessment/Plan: if platelet count < 50K will stop heparin Code(s): D69.6 - THROMBOCYTOPENIA, UNSPECIFIED (5) Anemia Assessment/Plan: transfuse if h/h < 7.5 marcocytic anemia on folic acid Code(s): D64.9 - ANEMIA, UNSPECIFIED Qualifiers: Anemia type: unspecified type Qualified Code(s): D64.9 - Anemia, unspecified (6) Psoriasis Assessment/Plan: topical steroidal cream Code(s): L40.9 - PSORIASIS, UNSPECIFIED (7) Cellulitis Assessment/Plan: IV ABX
[2017-07-10] MEDS: CEFAZOLIN 1 GM PUSH 1 GM/10 ML DISP.SYRIN IVPUSH SCH ×2 (14:00→22:22)
--- NOTE | 2017-07-10 15:13 | PN ---
Progress Note (short form) - Note Progress Note: ID consult dictated imp/reccd cellulitis psoriasis liver cirrhosis etoh use herberth has already been started on cefazolin, can transition to po keflex on Wednesday if discharge is planned please call back if needed Problem List - Problems (1) Cellulitis Code(s): L03.90 - CELLULITIS, UNSPECIFIED Qualifiers: Site of cellulitis: extremity Site of cellulitis of extremity: finger Laterality: left Qualified Code(s): L03.012 - Cellulitis of left finger
[2017-07-10] MEDS: THIAMINE HCL 100 MG TABLET (FP) PO SCH (22:22)
[2017-07-10] MEDS: ZOLPIDEM TARTRATE 5 MG TABLET PO PRN (22:23)
[2017-07-11] MEDS: oxyCODONE HCL 5 MG TABLET PO PRN ×5 (01:39→22:10)
[2017-07-11] MEDS: ALBUMIN HUMAN 25% 12.5 GM/50 ML VIAL IVPB SCH (02:28)
[2017-07-11] MEDS: OCTREOTIDE ACETATE 100 MCG/1 ML SQ SCH ×3 (05:41→21:35)
[2017-07-11 08:09] LABS: BASO % 0.5 % (0-2.0); EOS % 4.1 % (0-4.5); MCH 34.9 pg (25.7-33.7); MCHC 34.1 g/dl (32.0-35.9); MEAN CELL VOLUME 102.3 fl (80-96); MEAN PLT VOLUME 9.1 fl (7.5-11.1); NEUT % 61.5 % (42.8-82.8); RDW 19.9 % (11.9-15.9); WHITE BLOOD COUNT 7.9 K/mm3 (4.0-10.0)
[2017-07-11 08:38] LABS: ANION GAP 8 (8-16); CO2 31 mmol/L (21-32); CREATININE 1.5 mg/dL (0.7-1.3); GLUCOSE,RANDOM 143 mg/dL (74-106); MAGNESIUM 2.1 mg/dL (1.8-2.4); PHOSPHOROUS 3.2 mg/dL (2.5-4.9)
[2017-07-11] MEDS ORDERED: PT OWN MED DRAWER 7, Y5N ONE ×3 (09:03→21:27)
[2017-07-11] MEDS: PANTOPRAZOLE 40 MG TABLET (FP) PO SCH ×2 (09:08→21:34)
[2017-07-11] MEDS: FUROSEMIDE 40 MG TABLET (FP) PO SCH (09:08)
[2017-07-11] MEDS: FOLIC ACID 1 MG TABLET (FP) PO SCH (09:08)
[2017-07-11] MEDS: MIDODRINE HCL 5 MG TABLET PO SCH ×3 (09:09→17:16)
[2017-07-11] MEDS: RIFAXIMIN 550 MG TABLET (UD) PO SCH ×2 (09:09→21:34)
[2017-07-11] MEDS: hydrOXYzine HCL 25 MG TABLET (FP) PO PRN ×3 (09:09→22:10)
[2017-07-11] MEDS: PRENATAL VITAMINS W/ FOLIC ACID TABLET (FP) PO SCH (09:09)
[2017-07-11] MEDS: MAGNESIUM OXIDE 400 MG TABLET (FP) PO SCH ×2 (09:09→21:34)
[2017-07-11] MEDS: HEPARIN NA (PORCINE) 5,000 UNITS/ML 1ML VIAL SQ SCH ×2 (09:10→21:35)
[2017-07-11] MEDS: TRIAMCINOLONE ACET 0.5% OINT 15 GM TUBE TP SCH ×2 (09:11→21:35)
[2017-07-11] MEDS: CEFAZOLIN 1 GM PUSH 1 GM/10 ML DISP.SYRIN IVPUSH SCH ×2 (09:11→21:35)
--- NOTE | 2017-07-11 09:40 | PN ---
GI Progress Note Subjective: GI NOte ( covering Dr Craig) : More alert and interactive today. Eating breakfast. Creatinine is coming down slowly. Hb dwindling down. - Objective Vital Signs: Vital Signs Temperature 97.9 F 07/11/17 08:00 Pulse Rate 71 07/11/17 08:00 Respiratory Rate 18 07/11/17 08:00 Blood Pressure 114/62 07/11/17 08:00 O2 Sat by Pulse Oximetry (%) 97 07/11/17 08:00 Laboratory Tests 07/06/17 07/07/17 07/08/17 07:20 16:00 06:35 Hgb Creatinine 0.9 1.5 H D 1.6 H 07/09/17 07/10/17 07/10/17 10:13 07:30 07:30 Hgb 8.3 L Creatinine 1.8 H 1.7 H 07/11/17 07/11/17 07:00 07:00 Hgb 7.7 L Creatinine 1.5 H Constitutional: No Distress Eyes: Yes: Sclera Icterus ...Auscultate: Yes: Normoactive Bowel Sounds ...Palpate: Yes: Soft, Other (nontender) Labs: CBC, BMP 07/11/17 07:00 07/11/17 07:00 INR, PTT INR 1.87 (0.82-1.09) H 07/08/17 06:35 Problem List - Problems (1) Alcoholic cirrhosis Assessment/Plan: Alcoholic cirrhosis is complicated by encephalopathy and hepatorenal syndrome. He may be bleeding from his portal gastropathy. Will repeat CBC later today. If it drops further will need to consider transfusion which will also help renal perfusion. Discussed situation with Carlos A' Code(s): K70.30 - ALCOHOLIC CIRRHOSIS OF LIVER WITHOUT ASCITES Qualifiers: Ascites presence: with ascites Qualified Code(s): K70.31 - Alcoholic cirrhosis of liver with ascites (2) Hepatic encephalopathy Code(s): K72.90 - HEPATIC FAILURE, UNSPECIFIED WITHOUT COMA (3) Hepatorenal syndrome Assessment/Plan: Renal function is fortunately slightly improving. Code(s): K76.7 - HEPATORENAL SYNDROME
[2017-07-11 10:49] LABS: PLATELET COUNT 56 K/MM3 (134-434)
--- NOTE | 2017-07-11 10:56 | PN ---
Progress Note (short form) - Note Progress Note: Renal Follow up for PATRICIA Pt seen and examined at the bedside awake and alert has chronic Lower back pain no sob, chest pain, abd pain Vital Signs Temperature 97.9 F 07/11/17 08:00 Pulse Rate 71 07/11/17 08:00 Respiratory Rate 18 07/11/17 08:00 Blood Pressure 114/62 07/11/17 08:00 O2 Sat by Pulse Oximetry (%) 97 07/11/17 08:00 Intake & Output 07/08/17 07/09/17 07/10/17 07/11/17 23:59 23:59 23:59 23:59 Intake Total 200 750 450 50 Balance 200 750 450 50 Weight 95.481 kg 97.267 kg 99.337 kg 96.615 kg NAD awake and alert RRR CTA + Abd distension >2+ LE edema CBC, BMP 07/11/17 07:00 07/11/17 07:00 Current Medications Folic Acid (Folic Acid -) 1 mg PO DAILY [facility] Last Admin: 07/11/17 09:08 Dose: 1 mg Furosemide (Lasix -) 40 mg PO DAILY [facility] Last Admin: 07/11/17 09:08 Dose: 40 mg Heparin Sodium (Porcine) (Heparin -) 5,000 unit SQ BID [facility] Last Admin: 07/11/17 09:10 Dose: 5,000 unit Hydroxyzine HCl (Atarax -) 25 mg PO Q6H PRN PRN Reason: FOR ITCHING Last Admin: 07/11/17 09:09 Dose: 25 mg Cefazolin Sodium (Ancef -) 1 gm in 10 mls @ 120 mls/hr IVPUSH BID [facility] Last Admin: 07/11/17 09:11 Dose: 120 mls/hr Lactulose (Cephulac (Oral Use)) 20 gm PO TID PRN PRN Reason: CONSTIPATION Magnesium Oxide (Mag-Ox -) 400 mg PO BID [facility] Last Admin: 07/11/17 09:09 Dose: 400 mg Midodrine (Proamatine -) 5 mg PO TID-MID [facility] Last Admin: 07/11/17 09:09 Dose: 5 mg Octreotide Acetate (Sandostatin -) 100 mcg SQ TID [facility] Last Admin: 07/11/17 05:41 Dose: 100 mcg Oxycodone HCl (Roxicodone -) 5 mg PO Q4H PRN PRN Reason: PAIN Last Admin: 07/11/17 09:10 Dose: 5 mg Pantoprazole Sodium (Protonix -) 40 mg PO BID [facility] Last Admin: 07/11/17 09:08 Dose: 40 mg Multivit/Folic Acid/Iron ( Vitamins (Sjr) -) 1 tab PO DAILY [facility] Last Admin: 07/11/17 09:09 Dose: 1 tab Rifaximin (Xifaxan -) 550 mg PO BID [facility] Last Admin: 07/11/17 09:09 Dose: 550 mg Thiamine HCl (Vitamin B1 -) 100 mg PO HS [facility] Last Admin: 07/10/17 22:22 Dose: 100 mg Triamcinolone Acetonide (Aristocort 0.5% Ointment -) 1 applic TP BID [facility] Last Admin: 07/11/17 09:11 Dose: 1 applic Zolpidem Tartrate (Ambien -) 5 mg PO HS PRN PRN Reason: INSOMNIA Last Admin: 07/10/17 22:23 Dose: 5 mg A/P 52 year old gentleman with PMhx of Alcohol Liver cirrhosis, ETOH Abuse, Psoriasis, Hx of PATRICIA/CKD presents s/p alcohol intake/intoxicated and developed PATRICIA during the hospitalization. #Acute Kidney Injury in setting of cirrhosis/diuretics/Anemia Etiology appears to be Hepto-Renal Syndrome Type 2 Renal function improving with Albumin/Octreotide/Midodrine will stop albumin s/p dose today can resume Lasix if BUN/cr stable tomorrow would trend renal function for additional 24 hours #Liver cirrhosis/ETOH intoxication Supportive Care for inpatient De-tox/Rehab placement #Anemia/thrombocytopenia transfuse as needed Ronalod Gonzalez DO
--- NOTE | 2017-07-11 13:12 | CONS ---
DATE OF CONSULTATION: 07/10/2017 REQUESTED BY: Flash Judge MD This is a 52-year-old man with known history of depression and alcoholic cirrhosis, complicated by ascites, varices, and encephalopathy. He has continued to drink. He has a history of psoriasis as well. He was admitted to the hospital on the . I am asked to see him for increasing erythema of his legs. He is otherwise awake, alert. He denies any fevers or chills, any nausea or vomiting. He states his legs are very itchy and he scratches them and sometimes they bleed. Past medical history is notable for hypertension, ascites, liver cirrhosis, history of severe alcoholic hepatitis and encephalopathy. 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 He has had cellulitis of his legs in the past as well as psoriasis. Social history is notable for alcohol use. There is no history of any cigarette use. There is no history of any recent travel. He lives at home with his family. No known drug allergies. His medications at home include thiamine, magnesium oxide, folic acid, Lasix, Atarax, lactulose, nadolol, Protonix, rifaximin, Valium, and oxycodone. He drinks alcohol daily and most commonly he drinks vodka. He was admitted for alcohol dependence and withdrawal. I am asked to see him for possible cellulitis of his legs. His review of systems is notable for itchy skin, especially his legs. PHYSICAL EXAMINATION: General: He is awake and alert. Vital Signs: Temperature is 97.9. Pulse is 73. Blood pressure 118/59. Respiratory rate 18. Saturating 96% on room air. He has no asterixis. HEENT: Normocephalic. Eyes are icteric. Neck: Supple. Lungs: Clear to auscultation. Heart: Regular rate and rhythm. Abdomen: Soft, nontender. Extremities: Notable for bilateral pitting edema of the feet. He has a psoriatic rash extending throughout his legs, extending up to his abdomen, and patchy rash on his arms. The legs are very bright red in comparison to his arms. His white count is 9.3, hemoglobin 8.3, platelets 63,000. BUN 28, creatinine 1.7. In summary, this is a 52-year-old man with cellulitis of his lower extremities, psoriasis, liver cirrhosis, alcohol use, and acute kidney injury. He has already been started on cefazolin, which I would continue at this time. He can be transitioned to oral Keflex if discharge is planned for Wednesday. RAMIRO PEREZ M.D. ASTRID/[id number]
[2017-07-11 13:31] LABS: MCH 34.5 pg (25.7-33.7); MCHC 33.7 g/dl (32.0-35.9); MEAN CELL VOLUME 102.3 fl (80-96); MEAN PLT VOLUME 8.9 fl (7.5-11.1); NEUT % 59.4 % (42.8-82.8); PLATELET COUNT 57 K/MM3 (134-434); RDW 19.8 % (11.9-15.9); WHITE BLOOD COUNT 7.8 K/mm3 (4.0-10.0)
--- NOTE | 2017-07-11 14:30 | PN ---
Progress Note, Physician - Current Medication List Current Medications: Active Medications Folic Acid (Folic Acid -) 1 mg PO DAILY [facility] Last Admin: 07/11/17 09:08 Dose: 1 mg Furosemide (Lasix -) 40 mg PO DAILY [facility] Last Admin: 07/11/17 09:08 Dose: 40 mg Heparin Sodium (Porcine) (Heparin -) 5,000 unit SQ BID [facility] Last Admin: 07/11/17 09:10 Dose: 5,000 unit Hydroxyzine HCl (Atarax -) 25 mg PO Q6H PRN PRN Reason: FOR ITCHING Last Admin: 07/11/17 09:09 Dose: 25 mg Cefazolin Sodium (Ancef -) 1 gm in 10 mls @ 120 mls/hr IVPUSH BID [facility] Last Admin: 07/11/17 09:11 Dose: 120 mls/hr Lactulose (Cephulac (Oral Use)) 20 gm PO TID PRN PRN Reason: CONSTIPATION Magnesium Oxide (Mag-Ox -) 400 mg PO BID [facility] Last Admin: 07/11/17 09:09 Dose: 400 mg Midodrine (Proamatine -) 5 mg PO TID-MID [facility] Last Admin: 07/11/17 13:27 Dose: 5 mg Octreotide Acetate (Sandostatin -) 100 mcg SQ TID [facility] Last Admin: 07/11/17 13:28 Dose: 100 mcg Oxycodone HCl (Roxicodone -) 5 mg PO Q4H PRN PRN Reason: PAIN Last Admin: 07/11/17 13:33 Dose: 5 mg Pantoprazole Sodium (Protonix -) 40 mg PO BID [facility] Last Admin: 07/11/17 09:08 Dose: 40 mg Multivit/Folic Acid/Iron ( Vitamins (Sjr) -) 1 tab PO DAILY [facility] Last Admin: 07/11/17 09:09 Dose: 1 tab Rifaximin (Xifaxan -) 550 mg PO BID [facility] Last Admin: 07/11/17 09:09 Dose: 550 mg Thiamine HCl (Vitamin B1 -) 100 mg PO HS [facility] Last Admin: 07/10/17 22:22 Dose: 100 mg Triamcinolone Acetonide (Aristocort 0.5% Ointment -) 1 applic TP BID [facility] Last Admin: 07/11/17 09:11 Dose: 1 applic Zolpidem Tartrate (Ambien -) 5 mg PO HS PRN PRN Reason: INSOMNIA Last Admin: 07/10/17 22:23 Dose: 5 mg - Objective Vital Signs: Vital Signs Temperature 97.9 F 07/11/17 08:00 Pulse Rate 71 07/11/17 08:00 Respiratory Rate 18 07/11/17 08:00 Blood Pressure 114/62 07/11/17 08:00 O2 Sat by Pulse Oximetry (%) 97 07/11/17 08:00 Cardiovascular: Yes: Regular Rate and Rhythm Respiratory: Yes: Regular, CTA Bilaterally Gastrointestinal: Yes: Normal Bowel Sounds, Soft, Ascites, Distention Labs: CBC, BMP 07/11/17 13:28 07/11/17 07:00 INR, PTT INR 1.87 (0.82-1.09) H 07/08/17 06:35 Problem List - Problems (1) Alcoholic cirrhosis Code(s): K70.30 - ALCOHOLIC CIRRHOSIS OF LIVER WITHOUT ASCITES Qualifiers: Ascites presence: with ascites Qualified Code(s): K70.31 - Alcoholic cirrhosis of liver with ascites (2) Alcohol intoxication Code(s): F10.929 - ALCOHOL USE, UNSPECIFIED WITH INTOXICATION, UNSPECIFIED Qualifiers: Complication of substance-induced condition: uncomplicated Qualified Code(s ): F10.920 - Alcohol use, unspecified with intoxication, uncomplicated (3) Anemia Code(s): D64.9 - ANEMIA, UNSPECIFIED Qualifiers: Anemia type: unspecified type Qualified Code(s): D64.9 - Anemia, unspecified Assessment/Plan - Problems (1) Hepatorenal syndrome Assessment/Plan: renal consult appreciated getting albumin, midodrine and octreotide needs daily lab work- to monitor renal function possible discharge early next week if medically stable Code(s): K76.7 - HEPATORENAL SYNDROME (2) Alcohol dependence with uncomplicated withdrawal Assessment/Plan: completed the librium protocol folate and B1 spoke to Dr hilliard at [place] facility once he is medically ready then only will he go to the facility Code(s): F10.230 - ALCOHOL DEPENDENCE WITH WITHDRAWAL, UNCOMPLICATED (3) Alcoholic cirrhosis Assessment/Plan: rifaximin lacutlose to one BM per day lasix and K dur Code(s): K70.30 - ALCOHOLIC CIRRHOSIS OF LIVER WITHOUT ASCITES Qualifiers: Ascites presence: with ascites Qualified Code(s): K70.31 - Alcoholic cirrhosis of liver with ascites (4) Thrombocytopenia Assessment/Plan: if platelet count < 50K will stop heparin Code(s): D69.6 - THROMBOCYTOPENIA, UNSPECIFIED (5) Anemia Assessment/Plan: transfuse if h/h < 7.5 marcocytic anemia on folic acid Code(s): D64.9 - ANEMIA, UNSPECIFIED Qualifiers: Anemia type: unspecified type Qualified Code(s): D64.9 - Anemia, unspecified (6) Psoriasis Assessment/Plan: topical steroidal cream Code(s): L40.9 - PSORIASIS, UNSPECIFIED (7) Cellulitis Assessment/Plan: IV ABX
[2017-07-11] MEDS: ZOLPIDEM TARTRATE 5 MG TABLET PO PRN (21:34)
[2017-07-11] MEDS: THIAMINE HCL 100 MG TABLET (FP) PO SCH (21:34)
[2017-07-12] MEDS: oxyCODONE HCL 5 MG TABLET PO PRN ×4 (03:29→22:41)
[2017-07-12] MEDS: hydrOXYzine HCL 25 MG TABLET (FP) PO PRN ×3 (04:11→22:41)
[2017-07-12] MEDS: OCTREOTIDE ACETATE 100 MCG/1 ML SQ SCH ×3 (06:06→22:09)
[2017-07-12 07:23] LABS: BASO % 0.8 % (0-2.0); EOS % 3.8 % (0-4.5); MCH 35.1 pg (25.7-33.7); MCHC 34.3 g/dl (32.0-35.9); MEAN CELL VOLUME 102.2 fl (80-96); MEAN PLT VOLUME 8.6 fl (7.5-11.1); NEUT % 58.6 % (42.8-82.8); RDW 19.2 % (11.9-15.9)
[2017-07-12 08:30] LABS: ALK PHOS 96 U/L (45-117); ANION GAP 10 (8-16); BILIRUBIN,TOTAL 3.7 mg/dL (0.2-1.0); CALCIUM 8.6 mg/dL (8.5-10.1); CO2 29 mmol/L (21-32); CREATININE 1.5 mg/dL (0.7-1.3); GLUCOSE,RANDOM 153 mg/dL (74-106); MAGNESIUM 1.9 mg/dL (1.8-2.4); SGOT/AST 30 U/L (15-37); SGPT/ALT 14 U/L (12-78)
[2017-07-12] MEDS ORDERED: PT OWN MED DRAWER 7, Y5N ONE ×5 (09:34→22:04)
[2017-07-12] MEDS: MIDODRINE HCL 5 MG TABLET PO SCH ×3 (09:35→17:13)
[2017-07-12] MEDS: FUROSEMIDE 40 MG TABLET (FP) PO SCH (09:35)
[2017-07-12] MEDS: RIFAXIMIN 550 MG TABLET (UD) PO SCH ×2 (09:35→22:09)
[2017-07-12] MEDS: FOLIC ACID 1 MG TABLET (FP) PO SCH (09:36)
[2017-07-12] MEDS: PRENATAL VITAMINS W/ FOLIC ACID TABLET (FP) PO SCH (09:36)
[2017-07-12] MEDS: PANTOPRAZOLE 40 MG TABLET (FP) PO SCH ×2 (09:36→22:09)
[2017-07-12] MEDS: MAGNESIUM OXIDE 400 MG TABLET (FP) PO SCH ×2 (09:36→22:09)
[2017-07-12] MEDS: HEPARIN NA (PORCINE) 5,000 UNITS/ML 1ML VIAL SQ SCH ×2 (09:36→22:09)
[2017-07-12] MEDS: CEFAZOLIN 1 GM PUSH 1 GM/10 ML DISP.SYRIN IVPUSH SCH ×2 (09:36→22:09)
[2017-07-12] MEDS: TRIAMCINOLONE ACET 0.5% OINT 15 GM TUBE TP SCH ×2 (09:46→22:09)
[2017-07-12 10:19] LABS: PLATELET COMMENTS NO CLUMPING NOTED; PLATELET ESTIMATE DECREASED
[2017-07-12 11:38] LABS: PLATELET COUNT 57 K/MM3 (134-434)
--- NOTE | 2017-07-12 11:56 | PN ---
Progress Note, Physician Chief Complaint: Fall, AMS, alcohol abuse History of Present Illness: NAD, in the bathroom lethargic, icteric pruritis h/h dropped today in the room spoke to her -spoke to Dr Cardoso at [facility], patient medically not stable to be discharged. Along with rehab patient need medical management at the rehab which [facility] may not be able to provide. he needs labs for follow ups due to hepatorenal syndrome - Current Medication List Current Medications: Active Medications Folic Acid (Folic Acid -) 1 mg PO DAILY [facility] Last Admin: 07/12/17 09:36 Dose: 1 mg Furosemide (Lasix -) 40 mg PO DAILY [facility] Last Admin: 07/12/17 09:35 Dose: 40 mg Heparin Sodium (Porcine) (Heparin -) 5,000 unit SQ BID [facility] Last Admin: 07/12/17 09:36 Dose: 5,000 unit Hydroxyzine HCl (Atarax -) 25 mg PO Q6H PRN PRN Reason: FOR ITCHING Last Admin: 07/12/17 04:11 Dose: 25 mg Cefazolin Sodium (Ancef -) 1 gm in 10 mls @ 120 mls/hr IVPUSH BID [facility] Last Admin: 07/12/17 09:36 Dose: 120 mls/hr Lactulose (Cephulac (Oral Use)) 20 gm PO TID PRN PRN Reason: CONSTIPATION Last Admin: 07/12/17 09:51 Dose: 20 gm Magnesium Oxide (Mag-Ox -) 400 mg PO BID [facility] Last Admin: 07/12/17 09:36 Dose: 400 mg Midodrine (Proamatine -) 5 mg PO TID-MID [facility] Last Admin: 07/12/17 09:35 Dose: 5 mg Octreotide Acetate (Sandostatin -) 100 mcg SQ TID [facility] Last Admin: 07/12/17 06:06 Dose: 100 mcg Oxycodone HCl (Roxicodone -) 5 mg PO Q4H PRN PRN Reason: PAIN Last Admin: 07/12/17 11:14 Dose: 5 mg Pantoprazole Sodium (Protonix -) 40 mg PO BID [facility] Last Admin: 07/12/17 09:36 Dose: 40 mg Multivit/Folic Acid/Iron ( Vitamins (Sjr) -) 1 tab PO DAILY [facility] Last Admin: 07/12/17 09:36 Dose: 1 tab Rifaximin (Xifaxan -) 550 mg PO BID [facility] Last Admin: 07/12/17 09:35 Dose: 550 mg Thiamine HCl (Vitamin B1 -) 100 mg PO HS [facility] Last Admin: 07/11/17 21:34 Dose: 100 mg Triamcinolone Acetonide (Aristocort 0.5% Ointment -) 1 applic TP BID [facility] Last Admin: 07/12/17 09:46 Dose: 1 applic Zolpidem Tartrate (Ambien -) 5 mg PO HS PRN PRN Reason: INSOMNIA Last Admin: 07/11/17 21:34 Dose: 5 mg - Objective Vital Signs: Vital Signs Temperature 97.8 F 07/12/17 08:08 Pulse Rate 90 07/12/17 08:08 Respiratory Rate 18 07/12/17 08:08 Blood Pressure 140/67 07/12/17 08:08 O2 Sat by Pulse Oximetry (%) 98 07/12/17 09:00 Constitutional: Yes: Well Nourished, No Distress, Calm Cardiovascular: Yes: Regular Rate and Rhythm Respiratory: Yes: Regular Gastrointestinal: Yes: Ascites Extremities: Yes: Erythema (BLLE) Edema: Yes (BLLE) Peripheral Pulses WNL: Yes Neurological: Yes: Alert, Confusion, Lethargy Psychiatric: Yes: Alert Labs: CBC, BMP 07/12/17 06:20 07/12/17 06:20 INR, PTT INR 1.87 (0.82-1.09) H 07/08/17 06:35 Problem List - Problems (1) Alcohol dependence with uncomplicated withdrawal Assessment/Plan: -complicated situation- needs a rehab with medical management, rehabs unable to provided any medical management -We would provide remote care as a primary care team, but he needs labs done while in rehab Code(s): F10.230 - ALCOHOL DEPENDENCE WITH WITHDRAWAL, UNCOMPLICATED (2) Alcoholic cirrhosis Code(s): K70.30 - ALCOHOLIC CIRRHOSIS OF LIVER WITHOUT ASCITES Qualifiers: Ascites presence: with ascites Qualified Code(s): K70.31 - Alcoholic cirrhosis of liver with ascites (3) Head injury Assessment/Plan: -CT head negative Code(s): S09.90XA - UNSPECIFIED INJURY OF HEAD, INITIAL ENCOUNTER Qualifiers: Encounter type: initial encounter Qualified Code(s): S09.90XA - Unspecified injury of head, initial encounter (4) Hepatic encephalopathy Assessment/Plan: -lactulose to have BM 4 x day -seen by GI Code(s): K72.90 - HEPATIC FAILURE, UNSPECIFIED WITHOUT COMA (5) Anemia Assessment/Plan: -2 units prbc ordered -hematology -threshold for transfusion H/H 7.0/22.0 -monitor labs today Code(s): D64.9 - ANEMIA, UNSPECIFIED Qualifiers: Anemia type: unspecified type Qualified Code(s): D64.9 - Anemia, unspecified (6) Depression with anxiety Assessment/Plan: -seen by psychiatry, no pharmacological intervention recommended at this time Code(s): F41.8 - OTHER SPECIFIED ANXIETY DISORDERS Assessment/Plan see problem list
[2017-07-12] MEDS ORDERED: FUROSEMIDE 40 MG TABLET (FP) PO SCH (11:58)
[2017-07-12] MEDS ORDERED: SPIRONOLACTONE 25 MG TABLET (FP) PO SCH ×2 (12:00→14:12)
--- NOTE | 2017-07-12 12:00 | PN ---
Progress Note, Physician History of Present Illness: No acute events overnight. Clinically the same. Cr improved - Current Medication List Current Medications: Active Medications Folic Acid (Folic Acid -) 1 mg PO DAILY [facility] Last Admin: 07/12/17 09:36 Dose: 1 mg Furosemide (Lasix -) 40 mg PO DAILY [facility] Last Admin: 07/12/17 09:35 Dose: 40 mg Heparin Sodium (Porcine) (Heparin -) 5,000 unit SQ BID [facility] Last Admin: 07/12/17 09:36 Dose: 5,000 unit Hydroxyzine HCl (Atarax -) 25 mg PO Q6H PRN PRN Reason: FOR ITCHING Last Admin: 07/12/17 04:11 Dose: 25 mg Cefazolin Sodium (Ancef -) 1 gm in 10 mls @ 120 mls/hr IVPUSH BID [facility] Last Admin: 07/12/17 09:36 Dose: 120 mls/hr Lactulose (Cephulac (Oral Use)) 20 gm PO TID PRN PRN Reason: CONSTIPATION Last Admin: 07/12/17 09:51 Dose: 20 gm Magnesium Oxide (Mag-Ox -) 400 mg PO BID [facility] Last Admin: 07/12/17 09:36 Dose: 400 mg Midodrine (Proamatine -) 5 mg PO TID-MID [facility] Last Admin: 07/12/17 09:35 Dose: 5 mg Octreotide Acetate (Sandostatin -) 100 mcg SQ TID [facility] Last Admin: 07/12/17 06:06 Dose: 100 mcg Oxycodone HCl (Roxicodone -) 5 mg PO Q4H PRN PRN Reason: PAIN Last Admin: 07/12/17 11:14 Dose: 5 mg Pantoprazole Sodium (Protonix -) 40 mg PO BID [facility] Last Admin: 07/12/17 09:36 Dose: 40 mg Multivit/Folic Acid/Iron ( Vitamins (Sjr) -) 1 tab PO DAILY [facility] Last Admin: 07/12/17 09:36 Dose: 1 tab Rifaximin (Xifaxan -) 550 mg PO BID [facility] Last Admin: 07/12/17 09:35 Dose: 550 mg Thiamine HCl (Vitamin B1 -) 100 mg PO HS [facility] Last Admin: 07/11/17 21:34 Dose: 100 mg Triamcinolone Acetonide (Aristocort 0.5% Ointment -) 1 applic TP BID [facility] Last Admin: 07/12/17 09:46 Dose: 1 applic Zolpidem Tartrate (Ambien -) 5 mg PO HS PRN PRN Reason: INSOMNIA Last Admin: 07/11/17 21:34 Dose: 5 mg - Objective Vital Signs: Vital Signs Temperature 97.8 F 07/12/17 08:08 Pulse Rate 90 07/12/17 08:08 Respiratory Rate 18 07/12/17 08:08 Blood Pressure 140/67 07/12/17 08:08 O2 Sat by Pulse Oximetry (%) 98 07/12/17 09:00 Constitutional: Yes: No Distress, Calm Gastrointestinal: Yes: Soft. No: Melena, Rectal Bleeding, Tenderness Neurological: Yes: Alert Labs: CBC, BMP 07/12/17 06:20 07/12/17 06:20 INR, PTT INR 1.87 (0.82-1.09) H 07/08/17 06:35 Laboratory Results - last 24 hr 07/11/17 07/12/17 07/12/17 13:28 06:20 06:20 WBC 7.8 8.0 RBC 2.26 L 2.25 L Hgb 7.8 L 7.9 L Hct 23.2 L 23.0 L MCV 102.3 H 102.2 H MCH 34.5 H 35.1 H MCHC 33.7 34.3 RDW 19.8 H 19.2 H Plt Count 57 L 57 L MPV 8.9 8.6 Neutrophils % 59.4 58.6 Lymphocytes % 23.8 24.0 Monocytes % 11.8 H 12.8 H Eosinophils % 4.0 3.8 Basophils % 1.0 0.8 Platelet Estimate Decreased Platelet Comment No clumping noted Sodium 139 Potassium 4.5 Chloride 100 Carbon Dioxide 29 Anion Gap 10 BUN 25 H Creatinine 1.5 H Creat Clearance w eGFR 48.77 Random Glucose 153 H Calcium 8.6 Phosphorus 3.0 Magnesium 1.9 Total Bilirubin 3.7 H AST 30 ALT 14 D Alkaline Phosphatase 96 Ammonia Total Protein 7.0 Albumin 3.0 L 07/12/17 06:20 WBC RBC Hgb Hct MCV MCH MCHC RDW Plt Count MPV Neutrophils % Lymphocytes % Monocytes % Eosinophils % Basophils % Platelet Estimate Platelet Comment Sodium Potassium Chloride Carbon Dioxide Anion Gap BUN Creatinine Creat Clearance w eGFR Random Glucose Calcium Phosphorus Magnesium Total Bilirubin AST ALT Alkaline Phosphatase Ammonia 58.33 H Total Protein Albumin Problem List - Problems (1) Alcohol dependence with uncomplicated withdrawal Code(s): F10.230 - ALCOHOL DEPENDENCE WITH WITHDRAWAL, UNCOMPLICATED (2) Alcoholic cirrhosis Code(s): K70.30 - ALCOHOLIC CIRRHOSIS OF LIVER WITHOUT ASCITES Qualifiers: Qualified Code(s): K70.31 - Alcoholic cirrhosis of liver with ascites (3) Hepatic encephalopathy Code(s): K72.90 - HEPATIC FAILURE, UNSPECIFIED WITHOUT COMA (4) Alcohol intoxication Code(s): F10.929 - ALCOHOL USE, UNSPECIFIED WITH INTOXICATION, UNSPECIFIED Qualifiers: Qualified Code(s): F10.920 - Alcohol use, unspecified with intoxication, uncomplicated (5) Anemia Code(s): D64.9 - ANEMIA, UNSPECIFIED Qualifiers: Qualified Code(s): D64.9 - Anemia, unspecified (6) Jaundice Code(s): R17 - UNSPECIFIED JAUNDICE Assessment/Plan HRS Type 2 Cr better today Agree with albumin, midodrine, octreotide Lacutose and Rifaximin CBC, CMP daily 2 gm salt diet restriction Discussed with nephrology. Restart aldactone and continue lasix, monitor elctrolytes
--- NOTE | 2017-07-12 12:21 | PN ---
S Progress Note (SOAP) Subjective: patient develped cellulits requiring antibiotics and hepatorenal syndrome over weekend and was unable to be transferred to rehab as planned because medically unstable. at this point no compliants except pain from fall Objective: 07/12/17 12:16 Vital Signs - 24 hr 07/11/17 07/11/17 07/11/17 15:04 16:00 23:47 Temperature 97.9 F 98.1 F Pulse Rate 74 78 Respiratory 17 20 Rate Blood Pressure 125/70 133/62 O2 Sat by Pulse 98 Oximetry (%) 07/12/17 07/12/17 07/12/17 06:00 08:08 09:00 Temperature 98.6 F 97.8 F Pulse Rate 87 90 Respiratory 20 18 Rate Blood Pressure 118/54 140/67 O2 Sat by Pulse 98 Oximetry (%) afeb, no tachycardia, bp well controlled Laboratory Results - last 24 hr 07/11/17 07/12/17 07/12/17 13:28 06:20 06:20 WBC 7.8 8.0 RBC 2.26 L 2.25 L Hgb 7.8 L 7.9 L Hct 23.2 L 23.0 L MCV 102.3 H 102.2 H MCH 34.5 H 35.1 H MCHC 33.7 34.3 RDW 19.8 H 19.2 H Plt Count 57 L 57 L MPV 8.9 8.6 Neutrophils % 59.4 58.6 Lymphocytes % 23.8 24.0 Monocytes % 11.8 H 12.8 H Eosinophils % 4.0 3.8 Basophils % 1.0 0.8 Platelet Estimate Decreased Platelet Comment No clumping noted Sodium 139 Potassium 4.5 Chloride 100 Carbon Dioxide 29 Anion Gap 10 BUN 25 H Creatinine 1.5 H Creat Clearance w eGFR 48.77 Random Glucose 153 H Calcium 8.6 Phosphorus 3.0 Magnesium 1.9 Total Bilirubin 3.7 H AST 30 ALT 14 D Alkaline Phosphatase 96 Ammonia Total Protein 7.0 Albumin 3.0 L 07/12/17 06:20 WBC RBC Hgb Hct MCV MCH MCHC RDW Plt Count MPV Neutrophils % Lymphocytes % Monocytes % Eosinophils % Basophils % Platelet Estimate Platelet Comment Sodium Potassium Chloride Carbon Dioxide Anion Gap BUN Creatinine Creat Clearance w eGFR Random Glucose Calcium Phosphorus Magnesium Total Bilirubin AST ALT Alkaline Phosphatase Ammonia 58.33 H Total Protein Albumin elevated ammonia, low albumin, jaundice, herberth elevated bun and creatinine, a and o x3, ambulatign without assistance, ulcer/cellulits/swelling r le. Macrocytic anemia Assessment: 07/12/17 12:18 completed alcohol detox, mild hepatic encephalopathy, weakness and malnutrition , herberth, cellulitis, still required antibioitics and medical monitoring before transfer to rehab. He is welcome to come to [facility] care if bed available and patint agress. will be able to monitor himin our facility. 07/12/17 12:20 Dallas James. [phone] chart reviewd, labs and imaging review, discussed case with [employer] and and patient.
[2017-07-12] MEDS: SPIRONOLACTONE 25 MG TABLET (FP) PO SCH (15:42)
[2017-07-12] MEDS: THIAMINE HCL 100 MG TABLET (FP) PO SCH (22:09)
[2017-07-13] MEDS: oxyCODONE HCL 5 MG TABLET PO PRN ×5 (03:23→22:48)
[2017-07-13] MEDS: hydrOXYzine HCL 25 MG TABLET (FP) PO PRN ×3 (03:25→22:25)
[2017-07-13] MEDS: OCTREOTIDE ACETATE 100 MCG/1 ML SQ SCH ×3 (06:26→22:27)
--- NOTE | 2017-07-13 09:50 | PN ---
Progress Note, Physician Chief Complaint: Fall, AMS, alcohol abuse History of Present Illness: NAD, in bed, sleepy -arousable, oriented -received 2 units of bloods over night -extra furosemide 40 mg IVP - at bedside -renal fxn improved, on aldactone and furosemide - Current Medication List Current Medications: Active Medications Diazepam (Valium -) 10 mg PO BID PRN PRN Reason: ANXIETY Furosemide (Lasix -) 20 mg PO DAILY [facility] Heparin Sodium (Porcine) (Heparin -) 5,000 unit SQ BID [facility] Last Admin: 07/12/17 22:09 Dose: 5,000 unit Hydroxyzine HCl (Atarax -) 25 mg PO Q6H PRN PRN Reason: FOR ITCHING Last Admin: 07/13/17 03:25 Dose: 25 mg Cefazolin Sodium (Ancef -) 1 gm in 10 mls @ 120 mls/hr IVPUSH BID [facility] Last Admin: 07/12/17 22:09 Dose: 120 mls/hr Lactulose (Cephulac (Oral Use)) 20 gm PO TID PRN PRN Reason: CONSTIPATION Last Admin: 07/12/17 09:51 Dose: 20 gm Magnesium Oxide (Mag-Ox -) 400 mg PO BID [facility] Last Admin: 07/12/17 22:09 Dose: 400 mg Midodrine (Proamatine -) 5 mg PO TID-MID [facility] Last Admin: 07/12/17 17:13 Dose: 5 mg Octreotide Acetate (Sandostatin -) 100 mcg SQ TID [facility] Last Admin: 07/13/17 06:26 Dose: 100 mcg Oxycodone HCl (Roxicodone -) 5 mg PO Q4H PRN PRN Reason: PAIN Last Admin: 07/13/17 08:11 Dose: 5 mg Pantoprazole Sodium (Protonix -) 40 mg PO BID [facility] Last Admin: 07/12/17 22:09 Dose: 40 mg Multivit/Folic Acid/Iron ( Vitamins (Sjr) -) 1 tab PO DAILY [facility] Last Admin: 07/12/17 09:36 Dose: 1 tab Rifaximin (Xifaxan -) 550 mg PO BID [facility] Last Admin: 07/12/17 22:09 Dose: 550 mg Spironolactone (Aldactone -) 50 mg PO DAILY [facility] Last Admin: 07/12/17 15:42 Dose: 50 mg Thiamine HCl (Vitamin B1 -) 100 mg PO HS [facility] Last Admin: 07/12/17 22:09 Dose: 100 mg Triamcinolone Acetonide (Aristocort 0.5% Ointment -) 1 applic TP BID [facility] Last Admin: 07/12/17 22:09 Dose: 1 applic - Objective Vital Signs: Vital Signs Temperature 98.5 F 07/13/17 08:00 Pulse Rate 91 H 07/13/17 08:00 Respiratory Rate 18 07/13/17 08:00 Blood Pressure 154/84 07/13/17 08:00 O2 Sat by Pulse Oximetry (%) 98 07/12/17 09:00 Constitutional: Yes: Well Nourished, No Distress, Calm Cardiovascular: Yes: Regular Rate and Rhythm Respiratory: Yes: Regular Gastrointestinal: Yes: Normal Bowel Sounds Edema: Yes Edema: LLE: 2+, RLE: 2+ Peripheral Pulses WNL: No Neurological: Yes: Alert, Oriented Psychiatric: Yes: Alert, Oriented Labs: CBC, BMP 07/12/17 06:20 07/12/17 06:20 INR, PTT INR 1.87 (0.82-1.09) H 07/08/17 06:35 Problem List - Problems (1) Alcohol dependence with uncomplicated withdrawal Assessment/Plan: -complicated situation- needs a rehab with medical management, rehabs unable to provided any medical management[place] [facility] [place] [facility] [place] , awaiting call back -We would provide remote care as a primary care team, but he needs labs done while in rehab Code(s): F10.230 - ALCOHOL DEPENDENCE WITH WITHDRAWAL, UNCOMPLICATED (2) Alcoholic cirrhosis Code(s): K70.30 - ALCOHOLIC CIRRHOSIS OF LIVER WITHOUT ASCITES Qualifiers: Ascites presence: with ascites Qualified Code(s): K70.31 - Alcoholic cirrhosis of liver with ascites (3) Head injury Assessment/Plan: -CT head negative Code(s): S09.90XA - UNSPECIFIED INJURY OF HEAD, INITIAL ENCOUNTER Qualifiers: Encounter type: initial encounter Qualified Code(s): S09.90XA - Unspecified injury of head, initial encounter (4) Hepatic encephalopathy Assessment/Plan: -lactulose to have BM 4 x day -seen by GI Code(s): K72.90 - HEPATIC FAILURE, UNSPECIFIED WITHOUT COMA (5) Anemia Assessment/Plan: -H/H improved after 2 units of PRBC -hematology -threshold for transfusion H/H 7.0/22.0 -monitor labs today Code(s): D64.9 - ANEMIA, UNSPECIFIED Qualifiers: Anemia type: unspecified type Qualified Code(s): D64.9 - Anemia, unspecified (6) Depression with anxiety Assessment/Plan: -seen by psychiatry, no pharmacological intervention recommended at this time Code(s): F41.8 - OTHER SPECIFIED ANXIETY DISORDERS (7) Acute kidney injury Assessment/Plan: Cr at 1.3 today, may be able to tolerate higher dose furosemide with spironolactone Code(s): N17.9 - ACUTE KIDNEY FAILURE, UNSPECIFIED Assessment/Plan see problem list Physical therapy
[2017-07-13] MEDS ORDERED: FUROSEMIDE 40 MG/4 ML INJECTABLE VIAL IVPUSH ONE (09:53)
[2017-07-13] MEDS ORDERED: PT OWN MED DRAWER 7, Y5N ONE ×4 (10:24→22:23)
[2017-07-13] MEDS: MIDODRINE HCL 5 MG TABLET PO SCH ×3 (10:33→19:00)
[2017-07-13] MEDS: RIFAXIMIN 550 MG TABLET (UD) PO SCH ×2 (10:33→22:25)
[2017-07-13] MEDS: PRENATAL VITAMINS W/ FOLIC ACID TABLET (FP) PO SCH (10:33)
[2017-07-13] MEDS: PANTOPRAZOLE 40 MG TABLET (FP) PO SCH ×2 (10:33→22:25)
[2017-07-13] MEDS: MAGNESIUM OXIDE 400 MG TABLET (FP) PO SCH ×2 (10:33→22:25)
[2017-07-13] MEDS: CEFAZOLIN 1 GM PUSH 1 GM/10 ML DISP.SYRIN IVPUSH SCH ×2 (10:33→22:28)
[2017-07-13] MEDS: SPIRONOLACTONE 25 MG TABLET (FP) PO SCH (10:33)
[2017-07-13] MEDS: TRIAMCINOLONE ACET 0.5% OINT 15 GM TUBE TP SCH ×2 (10:34→22:27)
[2017-07-13] MEDS: HEPARIN NA (PORCINE) 5,000 UNITS/ML 1ML VIAL SQ SCH (10:34)
--- NOTE | 2017-07-13 10:43 | PN ---
Progress Note, Physician History of Present Illness: No acute events overnight. Received 1 u prbc. No signs of bleeding - no hematochezia, hematemesis, coffee ground emesis. Transfused b/c of SOB?. Worsening mental status - Current Medication List Current Medications: Active Medications Diazepam (Valium -) 10 mg PO BID PRN PRN Reason: ANXIETY Furosemide (Lasix -) 20 mg PO DAILY [facility] Heparin Sodium (Porcine) (Heparin -) 5,000 unit SQ BID [facility] Last Admin: 07/13/17 10:34 Dose: 5,000 unit Hydroxyzine HCl (Atarax -) 25 mg PO Q6H PRN PRN Reason: FOR ITCHING Last Admin: 07/13/17 03:25 Dose: 25 mg Cefazolin Sodium (Ancef -) 1 gm in 10 mls @ 120 mls/hr IVPUSH BID [facility] Last Admin: 07/13/17 10:33 Dose: 120 mls/hr Magnesium Oxide (Mag-Ox -) 400 mg PO BID [facility] Last Admin: 07/13/17 10:33 Dose: 400 mg Midodrine (Proamatine -) 5 mg PO TID-MID [facility] Last Admin: 07/13/17 10:33 Dose: 5 mg Octreotide Acetate (Sandostatin -) 100 mcg SQ TID [facility] Last Admin: 07/13/17 06:26 Dose: 100 mcg Oxycodone HCl (Roxicodone -) 5 mg PO Q4H PRN PRN Reason: PAIN Last Admin: 07/13/17 08:11 Dose: 5 mg Pantoprazole Sodium (Protonix -) 40 mg PO BID [facility] Last Admin: 07/13/17 10:33 Dose: 40 mg Multivit/Folic Acid/Iron ( Vitamins (Sjr) -) 1 tab PO DAILY [facility] Last Admin: 07/13/17 10:33 Dose: 1 tab Rifaximin (Xifaxan -) 550 mg PO BID [facility] Last Admin: 07/13/17 10:33 Dose: 550 mg Spironolactone (Aldactone -) 50 mg PO DAILY [facility] Last Admin: 07/13/17 10:33 Dose: 50 mg Thiamine HCl (Vitamin B1 -) 100 mg PO HS [facility] Last Admin: 07/12/17 22:09 Dose: 100 mg Triamcinolone Acetonide (Aristocort 0.5% Ointment -) 1 applic TP BID [facility] Last Admin: 07/13/17 10:34 Dose: 1 applic - Objective Vital Signs: Vital Signs Temperature 98.5 F 07/13/17 08:00 Pulse Rate 91 H 07/13/17 08:00 Respiratory Rate 18 07/13/17 08:00 Blood Pressure 154/84 07/13/17 08:00 O2 Sat by Pulse Oximetry (%) 98 07/12/17 09:00 Respiratory: Yes: Regular Gastrointestinal: Yes: Soft. No: Melena, Rectal Bleeding, Tenderness, Vomiting Neurological: Yes: Confusion, Lethargy Labs: CBC, BMP 07/12/17 06:20 07/12/17 06:20 INR, PTT INR 1.87 (0.82-1.09) H 07/08/17 06:35 Laboratory Results - last 24 hr 07/12/17 07/12/17 06:20 16:00 Plt Count 57 L Blood Type O POSITIVE Antibody Screen Negative Crossmatch See Detail Problem List - Problems (1) Alcohol dependence with uncomplicated withdrawal Code(s): F10.230 - ALCOHOL DEPENDENCE WITH WITHDRAWAL, UNCOMPLICATED (2) Alcoholic cirrhosis Code(s): K70.30 - ALCOHOLIC CIRRHOSIS OF LIVER WITHOUT ASCITES Qualifiers: Ascites presence: with ascites Qualified Code(s): K70.31 - Alcoholic cirrhosis of liver with ascites (3) Hepatic encephalopathy Code(s): K72.90 - HEPATIC FAILURE, UNSPECIFIED WITHOUT COMA (4) Alcohol intoxication Code(s): F10.929 - ALCOHOL USE, UNSPECIFIED WITH INTOXICATION, UNSPECIFIED Qualifiers: Complication of substance-induced condition: uncomplicated Qualified Code(s ): F10.920 - Alcohol use, unspecified with intoxication, uncomplicated (5) Anemia Code(s): D64.9 - ANEMIA, UNSPECIFIED Qualifiers: Anemia type: unspecified type Qualified Code(s): D64.9 - Anemia, unspecified (6) Jaundice Code(s): R17 - UNSPECIFIED JAUNDICE Assessment/Plan HRS Type 2 lactulose once daily. Worsening encephalopathy Lacutose to tid standing order and Rifaximin albumin, midodrine, octreotide Aldactone and asix, monitor elctrolytes CBC, CMP daily 2 gm salt diet restriction prognosis poor
[2017-07-13 10:45] LABS: BASO % 0.7 % (0-2.0); EOS % 3.5 % (0-4.5); MCHC 34.4 g/dl (32.0-35.9); MEAN CELL VOLUME 98.8 fl (80-96); NEUT % 60.5 % (42.8-82.8); PLATELET COUNT 63 K/MM3 (134-434); WHITE BLOOD COUNT 8.7 K/mm3 (4.0-10.0)
[2017-07-13 11:16] LABS: ALBUMIN 2.7 g/dl (3.4-5.0); ANION GAP 6 (8-16); BILIRUBIN,TOTAL 7.3 mg/dL (0.2-1.0); CALCIUM 8.5 mg/dL (8.5-10.1); CO2 31 mmol/L (21-32); CREATININE 1.3 mg/dL (0.7-1.3); GLUCOSE,RANDOM 156 mg/dL (74-106); SGOT/AST 31 U/L (15-37); SGPT/ALT 12 U/L (12-78); TOT PROT 6.9 g/dl (6.4-8.2)
[2017-07-13 11:17] LABS: ALK PHOS 96 U/L (45-117)
[2017-07-13 11:23] LABS: INR 2.07 (0.82-1.09); PROTHROMBIN TIME (PATIENT) 23.4 SEC (9.98-11.88)
--- NOTE | 2017-07-13 13:05 | PN ---
Progress Note (short form) - Note Progress Note: Renal Follow up for PATRICIA Pt seen and examined at the bedside sitting at the bedside no acute complaints making urine no sob, chest pain legs remain swollen Vital Signs Temperature 98.5 F 07/13/17 08:00 Pulse Rate 91 H 07/13/17 08:00 Respiratory Rate 18 07/13/17 08:00 Blood Pressure 154/84 07/13/17 08:00 O2 Sat by Pulse Oximetry (%) 98 07/12/17 09:00 Intake & Output 07/10/17 07/11/17 07/12/17 07/13/17 23:59 23:59 23:59 23:59 Intake Total 450 260 800 900 Balance 450 260 800 900 Weight 99.337 kg 96.615 kg 97.976 kg 98.571 kg NAD awake and alert RRR CTA + Abd distension >2+ LE edema CBC, BMP 07/13/17 10:20 07/13/17 10:20 Laboratory Tests 07/13/17 07/13/17 10:20 10:20 Calcium 8.5 Total Bilirubin 7.3 H D Direct Bilirubin 1.9 H D Albumin 2.7 L Current Medications Diazepam (Valium -) 10 mg PO BID PRN PRN Reason: ANXIETY Furosemide (Lasix -) 20 mg PO DAILY [facility] Last Admin: 07/13/17 11:40 Dose: 20 mg Heparin Sodium (Porcine) (Heparin -) 5,000 unit SQ BID [facility] Last Admin: 07/13/17 10:34 Dose: 5,000 unit Hydroxyzine HCl (Atarax -) 25 mg PO Q6H PRN PRN Reason: FOR ITCHING Last Admin: 07/13/17 03:25 Dose: 25 mg Cefazolin Sodium (Ancef -) 1 gm in 10 mls @ 120 mls/hr IVPUSH BID [facility] Last Admin: 07/13/17 10:33 Dose: 120 mls/hr Lactulose (Cephulac (Oral Use)) 20 gm PO TID [facility] Magnesium Oxide (Mag-Ox -) 400 mg PO BID [facility] Last Admin: 07/13/17 10:33 Dose: 400 mg Midodrine (Proamatine -) 5 mg PO TID-MID [facility] Last Admin: 07/13/17 10:33 Dose: 5 mg Octreotide Acetate (Sandostatin -) 100 mcg SQ TID [facility] Last Admin: 07/13/17 06:26 Dose: 100 mcg Oxycodone HCl (Roxicodone -) 5 mg PO Q4H PRN PRN Reason: PAIN Last Admin: 07/13/17 08:11 Dose: 5 mg Pantoprazole Sodium (Protonix -) 40 mg PO BID [facility] Last Admin: 07/13/17 10:33 Dose: 40 mg Multivit/Folic Acid/Iron ( Vitamins (Sjr) -) 1 tab PO DAILY [facility] Last Admin: 07/13/17 10:33 Dose: 1 tab Rifaximin (Xifaxan -) 550 mg PO BID [facility] Last Admin: 07/13/17 10:33 Dose: 550 mg Spironolactone (Aldactone -) 50 mg PO DAILY [facility] Last Admin: 07/13/17 10:33 Dose: 50 mg Thiamine HCl (Vitamin B1 -) 100 mg PO HS [facility] Last Admin: 07/12/17 22:09 Dose: 100 mg Triamcinolone Acetonide (Aristocort 0.5% Ointment -) 1 applic TP BID [facility] Last Admin: 07/13/17 10:34 Dose: 1 applic A/P 52 year old gentleman with PMhx of Alcohol Liver cirrhosis, ETOH Abuse, Psoriasis, Hx of PATRICIA/CKD presents s/p alcohol intake/intoxicated and developed PATRICIA during the hospitalization. #Acute Kidney Injury in setting of cirrhosis/diuretics/Anemia Hepto-Renal Syndrome Type 2 Renal function improving continue Midodrine 5mg TID continue Lasix and aldactone #Liver cirrhosis/ETOH intoxication Supportive Care for inpatient De-tox/Rehab placement #Anemia/thrombocytopenia transfuse as needed Ronaldo Gonzalez DO
[2017-07-13] MEDS: LACTULOSE 20 GM/30 ML UDC (FOR ORAL USE ONLY) PO SCH ×2 (14:10→22:25)
[2017-07-13] MEDS ORDERED: PHYTONADIONE 10 MG/1 ML AMP IVPB ONE (16:30)
[2017-07-13] MEDS: THIAMINE HCL 100 MG TABLET (FP) PO SCH (22:25)
[2017-07-13] MEDS: diazePAM 5 MG TABLET PO PRN (22:25)
[2017-07-13] MEDS: SILVER SULFADIAZINE 1% TOP CREAM 50 GM JAR TP SCH ×2 (22:25→22:50)
[2017-07-14] MEDS: oxyCODONE HCL 5 MG TABLET PO PRN ×3 (02:58→11:48)
[2017-07-14] MEDS: OCTREOTIDE ACETATE 100 MCG/1 ML SQ SCH ×3 (05:54→22:13)
[2017-07-14] MEDS: LACTULOSE 20 GM/30 ML UDC (FOR ORAL USE ONLY) PO SCH ×3 (05:54→22:08)
[2017-07-14 07:58] LABS: BASO % 0.9 % (0-2.0); EOS % 2.2 % (0-4.5); MCH 34.2 pg (25.7-33.7); MCHC 34.6 g/dl (32.0-35.9); MEAN PLT VOLUME 8.4 fl (7.5-11.1); NEUT % 63.5 % (42.8-82.8); PLATELET COUNT 68 K/MM3 (134-434); RDW 19.5 % (11.9-15.9); WHITE BLOOD COUNT 7.9 K/mm3 (4.0-10.0)
[2017-07-14 08:27] LABS: ALBUMIN 2.8 g/dl (3.4-5.0); ANION GAP 7 (8-16); BILIRUBIN,DIRECT 2.1 mg/dL (0.0-0.2); CALCIUM 8.8 mg/dL (8.5-10.1); CO2 33 mmol/L (21-32); GLUCOSE,RANDOM 168 mg/dL (74-106); SGPT/ALT 12 U/L (12-78)
[2017-07-14 08:30] LABS: ALK PHOS 101 U/L (45-117); BILIRUBIN,TOTAL 6.6 mg/dL (0.2-1.0); CREATININE 1.3 mg/dL (0.7-1.3); SGOT/AST 33 U/L (15-37); TOT PROT 7.3 g/dl (6.4-8.2)
[2017-07-14] MEDS ORDERED: PT OWN MED DRAWER 7, Y5N ONE ×3 (09:08→22:12)
[2017-07-14] MEDS: SILVER SULFADIAZINE 1% TOP CREAM 50 GM JAR TP SCH ×2 (09:17→22:11)
[2017-07-14] MEDS: SPIRONOLACTONE 25 MG TABLET (FP) PO SCH (09:17)
[2017-07-14] MEDS: PRENATAL VITAMINS W/ FOLIC ACID TABLET (FP) PO SCH (09:17)
[2017-07-14] MEDS: MAGNESIUM OXIDE 400 MG TABLET (FP) PO SCH ×2 (09:17→22:08)
[2017-07-14] MEDS: diazePAM 5 MG TABLET PO PRN ×2 (09:17→22:08)
[2017-07-14] MEDS: PANTOPRAZOLE 40 MG TABLET (FP) PO SCH ×2 (09:17→22:08)
[2017-07-14] MEDS: FUROSEMIDE 40 MG TABLET (FP) PO SCH (09:17)
[2017-07-14] MEDS: RIFAXIMIN 550 MG TABLET (UD) PO SCH ×2 (09:17→22:08)
[2017-07-14] MEDS: TRIAMCINOLONE ACET 0.5% OINT 15 GM TUBE TP SCH ×2 (09:18→22:09)
[2017-07-14] MEDS: MIDODRINE HCL 5 MG TABLET PO SCH ×3 (09:18→18:19)
[2017-07-14] MEDS: CEFAZOLIN 1 GM PUSH 1 GM/10 ML DISP.SYRIN IVPUSH SCH ×2 (09:18→22:11)
[2017-07-14 10:41] LABS: PLATELET COMMENTS PRESENT; PLATELET ESTIMATE DECREASED
[2017-07-14] MEDS: hydrOXYzine HCL 25 MG TABLET (FP) PO PRN (11:48)
--- NOTE | 2017-07-14 12:53 | PN ---
Progress Note (short form) - Note Progress Note: Patient seen and examined. all consults noted. ROS is much unobtainable due to his condition, he is sleepy Constitutional: Yes:sleepy Eyes: Yes: Sclera Icterus Cardiovascular: Yes: Regular Rate and Rhythm Respiratory: Yes: Regular Gastrointestinal Inspection: Yes: Ascites, Distention ...Palpate: No: Firm/Rigid, Guarding, Tenderness ...Percussion: Yes: Fluid Wave Edema: Yes Edema: LLE: 2+, RLE: 2+ Neurological: Yes: Alert, Oriented, Tremors Labs: Last Vital Signs Temp Pulse Resp BP Pulse Ox 98.8 F 97 H 20 147/77 98 07/14/17 09:15 07/14/17 09:15 07/14/17 09:15 07/14/17 09:15 07/13/17 21:00 CBC, BMP 07/14/17 06:30 07/14/17 06:30 Current Medications Generic Name Dose Route Start Last Admin Trade Name Freq PRN Reason Stop Dose Admin Diazepam 10 mg 07/12/17 16:43 07/14/17 09:17 Valium - PO 10 mg BID PRN Administration ANXIETY Furosemide 40 mg 07/13/17 17:50 07/14/17 09:17 Lasix - PO 40 mg DAILY [facility] Administration Hydroxyzine HCl 25 mg 07/12/17 15:30 07/14/17 11:48 Atarax - PO 25 mg Q6H PRN Administration FOR ITCHING Cefazolin Sodium 1 gm in 10 mls @ 120 mls/hr 07/10/17 13:00 07/14/17 09:18 Ancef - IVPUSH 120 mls/hr BID [facility] Administration Lactulose 20 gm 07/13/17 14:00 07/14/17 05:54 Cephulac (Oral Use) PO 20 gm TID [facility] Administration Magnesium Oxide 400 mg 07/05/17 22:00 07/14/17 09:17 Mag-Ox - PO 400 mg BID [facility] Administration Midodrine 5 mg 07/09/17 14:00 07/14/17 09:18 Proamatine - PO 5 mg TID-MID [facility] Administration Octreotide Acetate 100 mcg 07/08/17 20:15 07/14/17 05:54 Sandostatin - SQ 100 mcg TID [facility] Administration Oxycodone HCl 5 mg 07/10/17 17:13 07/14/17 11:48 Roxicodone - PO 5 mg Q4H PRN Administration PAIN Pantoprazole Sodium 40 mg 07/05/17 22:00 07/14/17 09:17 Protonix - PO 40 mg BID [facility] Administration Multivit/Folic Acid/Iron 1 tab 07/06/17 12:00 07/14/17 09:17 Vitamins (Sjr) - PO 1 tab DAILY [facility] Administration Rifaximin 550 mg 07/05/17 22:00 07/14/17 09:17 Xifaxan - PO 550 mg BID [facility] Administration Silver Sulfadiazine 1 applic 07/13/17 22:00 07/14/17 09:17 Silvadene - TP 1 applic BID [facility] Administration Spironolactone 50 mg 07/12/17 15:45 07/14/17 09:17 Aldactone - PO 50 mg DAILY [facility] Administration Thiamine HCl 100 mg 07/06/17 22:00 07/13/17 22:25 Vitamin B1 - PO 100 mg HS [facility] Administration Triamcinolone Acetonide 1 applic 07/07/17 22:00 07/14/17 09:18 Aristocort 0.5% Ointment - TP 1 applic BID [facility] Administration Decompensated alcohol induced cirrhosis: macrocytic anemia ETOH toxicity Thrombocytopenia coagulopathy HRS encephalopathy continue present care assess for supportive transfusions as needed CBC/Chem stable f/u INR. s/p Vit K
--- NOTE | 2017-07-14 14:49 | PN ---
Progress Note, Physician Chief Complaint: Fall, AMS, alcohol abuse History of Present Illness: -NAD, sitting at the edge -lethargic, icteric -pruritis -h/h improved -needs medical management such as blood work, if he goes to rehab -still has BLLE +2 edema - Current Medication List Current Medications: Active Medications Diazepam (Valium -) 10 mg PO BID PRN PRN Reason: ANXIETY Last Admin: 07/14/17 09:17 Dose: 10 mg Furosemide (Lasix -) 40 mg PO DAILY [facility] Last Admin: 07/14/17 09:17 Dose: 40 mg Hydroxyzine HCl (Atarax -) 25 mg PO Q6H PRN PRN Reason: FOR ITCHING Last Admin: 07/14/17 11:48 Dose: 25 mg Cefazolin Sodium (Ancef -) 1 gm in 10 mls @ 120 mls/hr IVPUSH BID [facility] Last Admin: 07/14/17 09:18 Dose: 120 mls/hr Lactulose (Cephulac (Oral Use)) 20 gm PO TID [facility] Last Admin: 07/14/17 14:38 Dose: 20 gm Magnesium Oxide (Mag-Ox -) 400 mg PO BID [facility] Last Admin: 07/14/17 09:17 Dose: 400 mg Midodrine (Proamatine -) 5 mg PO TID-MID [facility] Last Admin: 07/14/17 14:38 Dose: 5 mg Octreotide Acetate (Sandostatin -) 100 mcg SQ TID [facility] Last Admin: 07/14/17 14:38 Dose: 100 mcg Oxycodone HCl (Roxicodone -) 5 mg PO Q4H PRN PRN Reason: PAIN Last Admin: 07/14/17 11:48 Dose: 5 mg Pantoprazole Sodium (Protonix -) 40 mg PO BID [facility] Last Admin: 07/14/17 09:17 Dose: 40 mg Multivit/Folic Acid/Iron ( Vitamins (Sjr) -) 1 tab PO DAILY [facility] Last Admin: 07/14/17 09:17 Dose: 1 tab Rifaximin (Xifaxan -) 550 mg PO BID [facility] Last Admin: 07/14/17 09:17 Dose: 550 mg Silver Sulfadiazine (Silvadene -) 1 applic TP BID [facility] Last Admin: 07/14/17 09:17 Dose: 1 applic Spironolactone (Aldactone -) 50 mg PO DAILY [facility] Last Admin: 07/14/17 09:17 Dose: 50 mg Thiamine HCl (Vitamin B1 -) 100 mg PO HS [facility] Last Admin: 07/13/17 22:25 Dose: 100 mg Triamcinolone Acetonide (Aristocort 0.5% Ointment -) 1 applic TP BID [facility] Last Admin: 07/14/17 09:18 Dose: 1 applic - Objective Vital Signs: Vital Signs Temperature 98.8 F 07/14/17 09:15 Pulse Rate 97 H 07/14/17 09:15 Respiratory Rate 20 07/14/17 09:15 Blood Pressure 147/77 07/14/17 09:15 O2 Sat by Pulse Oximetry (%) 98 07/14/17 09:15 Constitutional: Yes: Well Nourished, No Distress, Calm Cardiovascular: Yes: Regular Rate and Rhythm Respiratory: Yes: Regular Extremities: Yes: Erythema Edema: LLE: 2+, RLE: 2+ Peripheral Pulses WNL: Yes Neurological: Yes: Alert, Oriented, Lethargy Psychiatric: Yes: Alert, Oriented Labs: CBC, BMP 07/14/17 06:30 07/14/17 06:30 INR, PTT INR 2.07 (0.82-1.09) H 07/13/17 10:20 Problem List - Problems (1) Alcohol dependence with uncomplicated withdrawal Assessment/Plan: -complicated situation- needs a rehab with medical management, rehabs unable to provided any medical management -We would provide remote care as a primary care team, but he needs labs done while in rehab Code(s): F10.230 - ALCOHOL DEPENDENCE WITH WITHDRAWAL, UNCOMPLICATED (2) Alcoholic cirrhosis Code(s): K70.30 - ALCOHOLIC CIRRHOSIS OF LIVER WITHOUT ASCITES Qualifiers: Ascites presence: with ascites Qualified Code(s): K70.31 - Alcoholic cirrhosis of liver with ascites (3) Head injury Assessment/Plan: -CT head negative Code(s): S09.90XA - UNSPECIFIED INJURY OF HEAD, INITIAL ENCOUNTER Qualifiers: Encounter type: initial encounter Qualified Code(s): S09.90XA - Unspecified injury of head, initial encounter (4) Hepatic encephalopathy Assessment/Plan: -lactulose to have BM 4 x day -seen by GI Code(s): K72.90 - HEPATIC FAILURE, UNSPECIFIED WITHOUT COMA (5) Anemia Assessment/Plan: -improved -hematology -threshold for transfusion H/H 7.0/22.0 -monitor labs today Code(s): D64.9 - ANEMIA, UNSPECIFIED Qualifiers: Anemia type: unspecified type Qualified Code(s): D64.9 - Anemia, unspecified (6) Depression with anxiety Assessment/Plan: -seen by psychiatry, no pharmacological intervention recommended at this time Code(s): F41.8 - OTHER SPECIFIED ANXIETY DISORDERS (7) Hepatorenal syndrome Code(s): K76.7 - HEPATORENAL SYNDROME (8) Cellulitis Assessment/Plan: BLLE -ID on board -IV abx Code(s): L03.90 - CELLULITIS, UNSPECIFIED Qualifiers: Site of cellulitis: extremity Site of cellulitis of extremity: lower extremity Laterality: unspecified laterality Qualified Code(s): L03.119 - Cellulitis of unspecified part of limb (9) Psoriasis Assessment/Plan: -triamcinolone -steroids not recommended, may cause more fluid retention Code(s): L40.9 - PSORIASIS, UNSPECIFIED Assessment/Plan see problem list
--- NOTE | 2017-07-14 17:32 | PN ---
Progress Note (short form) - Note Progress Note: Renal Follow up for PATRICIA Pt seen and examined at the bedside no acute complaints awaiting d/c to rehab Vital Signs Temperature 97.7 F 07/14/17 14:00 Pulse Rate 90 07/14/17 14:00 Respiratory Rate 22 07/14/17 14:00 Blood Pressure 139/64 07/14/17 14:00 O2 Sat by Pulse Oximetry (%) 98 07/14/17 09:15 Intake & Output 07/11/17 07/12/17 07/13/17 07/14/17 23:59 23:59 23:59 23:59 Intake Total 345 339 7659 450 Balance 387 636 5563 450 Weight 96.615 kg 97.976 kg 98.571 kg 98.543 kg NAD awake and alert RRR CTA + Abd distension >2+ LE edema CBC, BMP 07/14/17 06:30 07/14/17 06:30 Current Medications Diazepam (Valium -) 5 mg PO BID PRN PRN Reason: ANXIETY Furosemide (Lasix -) 40 mg PO DAILY [facility] Last Admin: 07/14/17 09:17 Dose: 40 mg Hydroxyzine HCl (Atarax -) 25 mg PO Q6H PRN PRN Reason: FOR ITCHING Last Admin: 07/14/17 11:48 Dose: 25 mg Cefazolin Sodium (Ancef -) 1 gm in 10 mls @ 120 mls/hr IVPUSH BID [facility] Last Admin: 07/14/17 09:18 Dose: 120 mls/hr Lactulose (Cephulac (Oral Use)) 20 gm PO TID [facility] Last Admin: 07/14/17 14:38 Dose: 20 gm Magnesium Oxide (Mag-Ox -) 400 mg PO BID [facility] Last Admin: 07/14/17 09:17 Dose: 400 mg Midodrine (Proamatine -) 5 mg PO TID-MID [facility] Last Admin: 07/14/17 14:38 Dose: 5 mg Octreotide Acetate (Sandostatin -) 100 mcg SQ TID [facility] Last Admin: 07/14/17 14:38 Dose: 100 mcg Oxycodone HCl (Roxicodone -) 5 mg PO Q4H PRN PRN Reason: PAIN Last Admin: 07/14/17 11:48 Dose: 5 mg Pantoprazole Sodium (Protonix -) 40 mg PO BID [facility] Last Admin: 07/14/17 09:17 Dose: 40 mg Multivit/Folic Acid/Iron ( Vitamins (Sjr) -) 1 tab PO DAILY [facility] Last Admin: 07/14/17 09:17 Dose: 1 tab Rifaximin (Xifaxan -) 550 mg PO BID [facility] Last Admin: 07/14/17 09:17 Dose: 550 mg Silver Sulfadiazine (Silvadene -) 1 applic TP BID [facility] Last Admin: 07/14/17 09:17 Dose: 1 applic Spironolactone (Aldactone -) 50 mg PO DAILY [facility] Last Admin: 07/14/17 09:17 Dose: 50 mg Thiamine HCl (Vitamin B1 -) 100 mg PO HS [facility] Last Admin: 07/13/17 22:25 Dose: 100 mg Triamcinolone Acetonide (Aristocort 0.5% Ointment -) 1 applic TP BID [facility] Last Admin: 07/14/17 09:18 Dose: 1 applic A/P 52 year old gentleman with PMhx of Alcohol Liver cirrhosis, ETOH Abuse, Psoriasis, Hx of PATRICIA/CKD presents s/p alcohol intake/intoxicated and developed PATRICIA during the hospitalization. #Acute Kidney Injury in setting of cirrhosis/diuretics/Anemia Hepto-Renal Syndrome Type 2 Renal function stable continue diuretics and Midodrine #Liver cirrhosis/ETOH intoxication Supportive Care for inpatient De-tox/Rehab placement #Anemia/thrombocytopenia transfuse as needed Ronaldo Gonzalez DO
[2017-07-14] MEDS: THIAMINE HCL 100 MG TABLET (FP) PO SCH (22:08)
[2017-07-15] MEDS: oxyCODONE HCL 5 MG TABLET PO PRN ×4 (01:38→18:53)
[2017-07-15] MEDS: hydrOXYzine HCL 25 MG TABLET (FP) PO PRN ×4 (01:39→22:19)
[2017-07-15] MEDS ORDERED: PT OWN MED DRAWER 7, Y5N ONE ×5 (05:03→21:47)
[2017-07-15] MEDS: OCTREOTIDE ACETATE 100 MCG/1 ML SQ SCH ×3 (05:16→22:20)
[2017-07-15] MEDS: LACTULOSE 20 GM/30 ML UDC (FOR ORAL USE ONLY) PO SCH ×3 (05:17→22:19)
[2017-07-15 08:17] LABS: BASO % 1.2 % (0-2.0); EOS % 2.7 % (0-4.5); MCH 33.8 pg (25.7-33.7); MCHC 33.8 g/dl (32.0-35.9); MEAN PLT VOLUME 7.9 fl (7.5-11.1); NEUT % 59.6 % (42.8-82.8); PLATELET COUNT 70 K/MM3 (134-434); RDW 19.1 % (11.9-15.9); WHITE BLOOD COUNT 8.8 K/mm3 (4.0-10.0)
[2017-07-15 08:34] LABS: INR 2.02 (0.82-1.09); PROTHROMBIN TIME (PATIENT) 22.8 SEC (9.98-11.88)
[2017-07-15 08:37] LABS: ACTIVATED PTT 41.4 SECONDS (26.9-34.4)
[2017-07-15 08:47] LABS: ALBUMIN 2.7 g/dl (3.4-5.0); ANION GAP 9 (8-16); BILIRUBIN,DIRECT 2.3 mg/dL (0.0-0.2); CO2 31 mmol/L (21-32); CREATININE 1.4 mg/dL (0.7-1.3); GLUCOSE,RANDOM 124 mg/dL (74-106); SGOT/AST 32 U/L (15-37); SGPT/ALT 9 U/L (12-78)
[2017-07-15 08:48] LABS: ALK PHOS 101 U/L (45-117); BILIRUBIN,TOTAL 6.2 mg/dL (0.2-1.0); TOT PROT 6.9 g/dl (6.4-8.2)
[2017-07-15] MEDS: RIFAXIMIN 550 MG TABLET (UD) PO SCH ×2 (10:05→22:19)
[2017-07-15] MEDS: diazePAM 5 MG TABLET PO PRN ×2 (10:06→22:19)
[2017-07-15] MEDS: PANTOPRAZOLE 40 MG TABLET (FP) PO SCH ×2 (10:06→22:19)
[2017-07-15] MEDS: SPIRONOLACTONE 25 MG TABLET (FP) PO SCH (10:06)
[2017-07-15] MEDS: PRENATAL VITAMINS W/ FOLIC ACID TABLET (FP) PO SCH (10:06)
[2017-07-15] MEDS: MAGNESIUM OXIDE 400 MG TABLET (FP) PO SCH ×2 (10:06→22:19)
[2017-07-15] MEDS: FUROSEMIDE 40 MG TABLET (FP) PO SCH (10:06)
[2017-07-15] MEDS: MIDODRINE HCL 5 MG TABLET PO SCH ×3 (10:06→18:53)
[2017-07-15] MEDS: SILVER SULFADIAZINE 1% TOP CREAM 50 GM JAR TP SCH ×2 (10:08→22:20)
[2017-07-15] MEDS: TRIAMCINOLONE ACET 0.5% OINT 15 GM TUBE TP SCH ×2 (10:08→22:19)
--- NOTE | 2017-07-15 10:10 | PN ---
Progress Note, Physician Chief Complaint: Fall, AMS, alcohol abuse History of Present Illness: -NAD, sitting at the edge -lethargic, icteric -pruritis -h/h improved -needs medical management such as blood work, if he goes to rehab -still has BLLE +2 edema -hepatic encephalopathy - Current Medication List Current Medications: Active Medications Diazepam (Valium -) 5 mg PO BID PRN PRN Reason: ANXIETY Last Admin: 07/14/17 22:08 Dose: 5 mg Furosemide (Lasix -) 40 mg PO DAILY [facility] Last Admin: 07/14/17 09:17 Dose: 40 mg Hydroxyzine HCl (Atarax -) 25 mg PO Q6H PRN PRN Reason: FOR ITCHING Last Admin: 07/15/17 07:17 Dose: 25 mg Cefazolin Sodium (Ancef -) 1 gm in 10 mls @ 120 mls/hr IVPUSH BID [facility] Last Admin: 07/14/17 22:11 Dose: 120 mls/hr Lactulose (Cephulac (Oral Use)) 20 gm PO TID [facility] Last Admin: 07/15/17 05:17 Dose: 20 gm Magnesium Oxide (Mag-Ox -) 400 mg PO BID [facility] Last Admin: 07/14/17 22:08 Dose: 400 mg Midodrine (Proamatine -) 5 mg PO TID-MID [facility] Last Admin: 07/14/17 18:19 Dose: 5 mg Octreotide Acetate (Sandostatin -) 100 mcg SQ TID [facility] Last Admin: 07/15/17 05:16 Dose: 100 mcg Oxycodone HCl (Roxicodone -) 5 mg PO Q4H PRN PRN Reason: PAIN Last Admin: 07/15/17 07:16 Dose: 5 mg Pantoprazole Sodium (Protonix -) 40 mg PO BID [facility] Last Admin: 07/14/17 22:08 Dose: 40 mg Multivit/Folic Acid/Iron ( Vitamins (Sjr) -) 1 tab PO DAILY [facility] Last Admin: 07/14/17 09:17 Dose: 1 tab Rifaximin (Xifaxan -) 550 mg PO BID [facility] Last Admin: 07/14/17 22:08 Dose: 550 mg Silver Sulfadiazine (Silvadene -) 1 applic TP BID [facility] Last Admin: 07/14/17 22:11 Dose: 1 applic Spironolactone (Aldactone -) 50 mg PO DAILY [facility] Last Admin: 07/14/17 09:17 Dose: 50 mg Thiamine HCl (Vitamin B1 -) 100 mg PO HS [facility] Last Admin: 07/14/17 22:08 Dose: 100 mg Triamcinolone Acetonide (Aristocort 0.5% Ointment -) 1 applic TP BID [facility] Last Admin: 07/14/17 22:09 Dose: 1 applic - Objective Vital Signs: Vital Signs Temperature 97.7 F 07/15/17 08:00 Pulse Rate 98 H 07/15/17 08:00 Respiratory Rate 18 07/15/17 08:00 Blood Pressure 156/85 07/15/17 08:00 O2 Sat by Pulse Oximetry (%) 96 07/14/17 21:00 Constitutional: Yes: Well Nourished, No Distress, Calm Cardiovascular: Yes: Regular Rate and Rhythm Respiratory: Yes: Regular Gastrointestinal: Yes: Ascites Musculoskeletal: Yes: Muscle Pain, Muscle Weakness Extremities: Yes: Erythema (BLLE) Edema: LLE: 2+, RLE: 2+ Peripheral Pulses WNL: Yes Integumentary: Yes: Erythema (BLLE), Rash (Generalized psoriatic rash) Neurological: Yes: Alert, Oriented, Lethargy Psychiatric: Yes: Alert, Oriented Labs: CBC, BMP 07/15/17 07:15 07/15/17 07:15 INR, PTT INR 2.02 (0.82-1.09) H 07/15/17 07:15 Problem List - Problems (1) Alcohol dependence with uncomplicated withdrawal Assessment/Plan: -needs a rehab with medical management, [place] recommeded -We would provide remote care as a primary care team, but he needs labs done while in rehab Code(s): F10.230 - ALCOHOL DEPENDENCE WITH WITHDRAWAL, UNCOMPLICATED (2) Alcoholic cirrhosis Code(s): K70.30 - ALCOHOLIC CIRRHOSIS OF LIVER WITHOUT ASCITES Qualifiers: Ascites presence: with ascites Qualified Code(s): K70.31 - Alcoholic cirrhosis of liver with ascites (3) Head injury Assessment/Plan: -CT head negative Code(s): S09.90XA - UNSPECIFIED INJURY OF HEAD, INITIAL ENCOUNTER Qualifiers: Encounter type: initial encounter Qualified Code(s): S09.90XA - Unspecified injury of head, initial encounter (4) Hepatic encephalopathy Assessment/Plan: -lactulose to have BM 4 x day -seen by GI Code(s): K72.90 - HEPATIC FAILURE, UNSPECIFIED WITHOUT COMA (5) Anemia Assessment/Plan: -improved -hematology -threshold for transfusion H/H 7.0/22.0 -monitor labs today Code(s): D64.9 - ANEMIA, UNSPECIFIED Qualifiers: Anemia type: unspecified type Qualified Code(s): D64.9 - Anemia, unspecified (6) Depression with anxiety Assessment/Plan: -seen by psychiatry, -to start on sertraline 25 mg po daily Code(s): F41.8 - OTHER SPECIFIED ANXIETY DISORDERS (7) Hepatorenal syndrome Code(s): K76.7 - HEPATORENAL SYNDROME (8) Cellulitis Assessment/Plan: BLLE -ID on board -IV abx Code(s): L03.90 - CELLULITIS, UNSPECIFIED Qualifiers: Site of cellulitis: extremity Site of cellulitis of extremity: lower extremity Laterality: unspecified laterality Qualified Code(s): L03.119 - Cellulitis of unspecified part of limb (9) Psoriasis Assessment/Plan: -triamcinolone -steroids not recommended, may cause more fluid retention Code(s): L40.9 - PSORIASIS, UNSPECIFIED Assessment/Plan see problem list
--- NOTE | 2017-07-15 13:03 | PN ---
Progress Note, Physician History of Present Illness: No acute events overnight. - Current Medication List Current Medications: Active Medications Diazepam (Valium -) 5 mg PO BID PRN PRN Reason: ANXIETY Last Admin: 07/15/17 10:06 Dose: 5 mg Furosemide (Lasix -) 40 mg PO DAILY [facility] Last Admin: 07/15/17 10:06 Dose: 40 mg Hydroxyzine HCl (Atarax -) 25 mg PO Q6H PRN PRN Reason: FOR ITCHING Last Admin: 07/15/17 07:17 Dose: 25 mg Cefazolin Sodium (Ancef -) 1 gm in 10 mls @ 120 mls/hr IVPUSH BID [facility] Last Admin: 07/14/17 22:11 Dose: 120 mls/hr Lactulose (Cephulac (Oral Use)) 20 gm PO TID [facility] Last Admin: 07/15/17 05:17 Dose: 20 gm Magnesium Oxide (Mag-Ox -) 400 mg PO BID [facility] Last Admin: 07/15/17 10:06 Dose: 400 mg Midodrine (Proamatine -) 5 mg PO TID-MID [facility] Last Admin: 07/15/17 10:06 Dose: 5 mg Octreotide Acetate (Sandostatin -) 100 mcg SQ TID [facility] Last Admin: 07/15/17 05:16 Dose: 100 mcg Oxycodone HCl (Roxicodone -) 5 mg PO Q4H PRN PRN Reason: PAIN Last Admin: 07/15/17 07:16 Dose: 5 mg Pantoprazole Sodium (Protonix -) 40 mg PO BID [facility] Last Admin: 07/15/17 10:06 Dose: 40 mg Multivit/Folic Acid/Iron ( Vitamins (Sjr) -) 1 tab PO DAILY [facility] Last Admin: 07/15/17 10:06 Dose: 1 tab Rifaximin (Xifaxan -) 550 mg PO BID [facility] Last Admin: 07/15/17 10:05 Dose: 550 mg Silver Sulfadiazine (Silvadene -) 1 applic TP BID [facility] Last Admin: 07/15/17 10:08 Dose: 1 applic Spironolactone (Aldactone -) 50 mg PO DAILY [facility] Last Admin: 07/15/17 10:06 Dose: 50 mg Thiamine HCl (Vitamin B1 -) 100 mg PO HS [facility] Last Admin: 07/14/17 22:08 Dose: 100 mg Triamcinolone Acetonide (Aristocort 0.5% Ointment -) 1 applic TP BID [facility] Last Admin: 07/15/17 10:08 Dose: 1 applic - Objective Vital Signs: Vital Signs Temperature 97.7 F 07/15/17 08:00 Pulse Rate 98 H 07/15/17 08:00 Respiratory Rate 18 07/15/17 08:00 Blood Pressure 156/85 07/15/17 08:00 O2 Sat by Pulse Oximetry (%) 96 07/14/17 21:00 Constitutional: Yes: Calm Eyes: Yes: Sclera Icterus Gastrointestinal: Yes: Soft. No: Distention, Melena, Rectal Bleeding, Tenderness, Vomiting Neurological: Yes: Oriented, Lethargy Labs: CBC, BMP 07/15/17 07:15 07/15/17 07:15 INR, PTT INR 2.02 (0.82-1.09) H 07/15/17 07:15 Laboratory Results - last 24 hr 07/15/17 07/15/17 07/15/17 07:15 07:15 07:15 WBC 8.8 RBC 2.74 L Hgb 9.3 L Hct 27.4 L MCV 100.0 H MCH 33.8 H MCHC 33.8 RDW 19.1 H Plt Count 70 L MPV 7.9 Neutrophils % 59.6 Lymphocytes % 22.9 Monocytes % 13.6 H Eosinophils % 2.7 Basophils % 1.2 PT with INR 22.80 H INR 2.02 H PTT (Actin FS) 41.4 H Sodium 137 Potassium 4.4 Chloride 97 L Carbon Dioxide 31 Anion Gap 9 BUN 18 Creatinine 1.4 H Creat Clearance w eGFR 52.81 Random Glucose 124 H D Calcium 9.0 Total Bilirubin 6.2 H Direct Bilirubin 2.3 H AST 32 ALT 9 L D Alkaline Phosphatase 101 Total Protein 6.9 Albumin 2.7 L Problem List - Problems (1) Alcohol dependence with uncomplicated withdrawal Code(s): F10.230 - ALCOHOL DEPENDENCE WITH WITHDRAWAL, UNCOMPLICATED (2) Alcoholic cirrhosis Code(s): K70.30 - ALCOHOLIC CIRRHOSIS OF LIVER WITHOUT ASCITES Qualifiers: Ascites presence: with ascites Qualified Code(s): K70.31 - Alcoholic cirrhosis of liver with ascites (3) Hepatic encephalopathy Code(s): K72.90 - HEPATIC FAILURE, UNSPECIFIED WITHOUT COMA (4) Alcohol intoxication Code(s): F10.929 - ALCOHOL USE, UNSPECIFIED WITH INTOXICATION, UNSPECIFIED Qualifiers: Complication of substance-induced condition: uncomplicated Qualified Code(s ): F10.920 - Alcohol use, unspecified with intoxication, uncomplicated (5) Anemia Code(s): D64.9 - ANEMIA, UNSPECIFIED Qualifiers: Anemia type: unspecified type Qualified Code(s): D64.9 - Anemia, unspecified (6) Jaundice Code(s): R17 - UNSPECIFIED JAUNDICE Assessment/Plan HRS Type 2 improved encephalopathy Discussed lactulose with the patient Lacutose tid standing order and Rifaximin. Target 4 bms/day albumin, midodrine, octreotide Aldactone and lasix, monitor elctrolytes CBC, CMP daily 2 gm salt diet restriction prognosis poor
[2017-07-15] MEDS: CEFAZOLIN 1 GM PUSH 1 GM/10 ML DISP.SYRIN IVPUSH SCH ×2 (13:41→22:19)
[2017-07-15] MEDS: SERTRALINE HCL 25 MG TABLET (FP) PO SCH (13:42)
--- NOTE | 2017-07-15 14:18 | PN ---
Progress Note (short form) - Note Progress Note: Renal Follow up for PATRICIA Pt seen and examined at the bedside no acute complaints no overnight events nurse reports that the pt is not compliant with fluid restriction Vital Signs Temperature 97.7 F 07/15/17 08:00 Pulse Rate 98 H 07/15/17 08:00 Respiratory Rate 18 07/15/17 08:00 Blood Pressure 156/85 07/15/17 08:00 O2 Sat by Pulse Oximetry (%) 97 07/15/17 09:00 Intake & Output 07/12/17 07/13/17 07/14/17 07/15/17 23:59 23:59 23:59 23:59 Intake Total 800 1450 750 500 Balance 800 1450 750 500 Weight 97.976 kg 98.571 kg 98.543 kg 98.656 kg NAD awake and alert RRR CTA + Abd distension >2+ LE edema CBC, BMP 07/15/17 07:15 07/15/17 07:15 Current Medications Diazepam (Valium -) 5 mg PO BID PRN PRN Reason: ANXIETY Last Admin: 07/15/17 10:06 Dose: 5 mg Furosemide (Lasix -) 40 mg PO DAILY [facility] Last Admin: 07/15/17 10:06 Dose: 40 mg Hydroxyzine HCl (Atarax -) 25 mg PO Q6H PRN PRN Reason: FOR ITCHING Last Admin: 07/15/17 14:12 Dose: 25 mg Cefazolin Sodium (Ancef -) 1 gm in 10 mls @ 120 mls/hr IVPUSH BID [facility] Last Admin: 07/15/17 13:41 Dose: 120 mls/hr Lactulose (Cephulac (Oral Use)) 20 gm PO TID [facility] Last Admin: 07/15/17 13:42 Dose: 20 gm Magnesium Oxide (Mag-Ox -) 400 mg PO BID [facility] Last Admin: 07/15/17 10:06 Dose: 400 mg Midodrine (Proamatine -) 5 mg PO TID-MID [facility] Last Admin: 07/15/17 13:42 Dose: 5 mg Octreotide Acetate (Sandostatin -) 100 mcg SQ TID [facility] Last Admin: 07/15/17 13:42 Dose: 100 mcg Oxycodone HCl (Roxicodone -) 5 mg PO Q4H PRN PRN Reason: PAIN Last Admin: 07/15/17 14:12 Dose: 5 mg Pantoprazole Sodium (Protonix -) 40 mg PO BID [facility] Last Admin: 07/15/17 10:06 Dose: 40 mg Multivit/Folic Acid/Iron ( Vitamins (Sjr) -) 1 tab PO DAILY [facility] Last Admin: 07/15/17 10:06 Dose: 1 tab Rifaximin (Xifaxan -) 550 mg PO BID [facility] Last Admin: 07/15/17 10:05 Dose: 550 mg Sertraline HCl (Zoloft -) 25 mg PO DAILY [facility] Last Admin: 07/15/17 13:42 Dose: 25 mg Silver Sulfadiazine (Silvadene -) 1 applic TP BID [facility] Last Admin: 07/15/17 10:08 Dose: 1 applic Spironolactone (Aldactone -) 50 mg PO DAILY [facility] Last Admin: 07/15/17 10:06 Dose: 50 mg Thiamine HCl (Vitamin B1 -) 100 mg PO HS [facility] Last Admin: 07/14/17 22:08 Dose: 100 mg Triamcinolone Acetonide (Aristocort 0.5% Ointment -) 1 applic TP BID [facility] Last Admin: 07/15/17 10:08 Dose: 1 applic A/P 52 year old gentleman with PMhx of Alcohol Liver cirrhosis, ETOH Abuse, Psoriasis, Hx of PATRICIA/CKD presents s/p alcohol intake/intoxicated and developed PATRICIA during the hospitalization. #Acute Kidney Injury in setting of cirrhosis/diuretics/Anemia Hepto-Renal Syndrome Type 2 Renal function stable expect to see mild flucation in Cr levels based on volume continue diuretics and midodrine fluid and salt restriction disussed with the pt and importance of limiting factors that can worsen his edema were discussed with him #Liver cirrhosis/ETOH intoxication Supportive Care for inpatient De-tox/Rehab placement on Lactulose Ronaldo Gonzalez DO
[2017-07-15] MEDS: THIAMINE HCL 100 MG TABLET (FP) PO SCH (22:18)
[2017-07-16] MEDS: hydrOXYzine HCL 25 MG TABLET (FP) PO PRN ×2 (04:05→21:08)
[2017-07-16] MEDS: oxyCODONE HCL 5 MG TABLET PO PRN ×3 (04:05→21:13)
[2017-07-16] MEDS: OCTREOTIDE ACETATE 100 MCG/1 ML SQ SCH ×3 (06:35→21:08)
[2017-07-16] MEDS: LACTULOSE 20 GM/30 ML UDC (FOR ORAL USE ONLY) PO SCH ×3 (06:35→17:39)
[2017-07-16 08:10] LABS: BASO % 1.1 % (0-2.0); EOS % 2.7 % (0-4.5); MCH 34.1 pg (25.7-33.7); MCHC 34.1 g/dl (32.0-35.9); MEAN CELL VOLUME 100.2 fl (80-96); MEAN PLT VOLUME 8.1 fl (7.5-11.1); NEUT % 61.3 % (42.8-82.8); PLATELET COUNT 69 K/MM3 (134-434); RDW 18.7 % (11.9-15.9); WHITE BLOOD COUNT 7.9 K/mm3 (4.0-10.0)
[2017-07-16 08:25] LABS: CALCIUM 8.2 mg/dL (8.5-10.1)
[2017-07-16 08:31] LABS: ALBUMIN 2.5 g/dl (3.4-5.0); ALK PHOS 102 U/L (45-117); ANION GAP 8 (8-16); BILIRUBIN,DIRECT 2.2 mg/dL (0.0-0.2); BILIRUBIN,TOTAL 6.1 mg/dL (0.2-1.0); CO2 31 mmol/L (21-32); CREATININE 1.3 mg/dL (0.7-1.3); GLUCOSE,RANDOM 121 mg/dL (74-106); SGOT/AST 29 U/L (15-37); SGPT/ALT 8 U/L (12-78); TOT PROT 6.7 g/dl (6.4-8.2)
[2017-07-16] MEDS ORDERED: PT OWN MED DRAWER 7, Y5N ONE ×2 (09:29→20:59)
[2017-07-16] MEDS: FUROSEMIDE 40 MG TABLET (FP) PO SCH ×2 (09:35→13:07)
[2017-07-16] MEDS: RIFAXIMIN 550 MG TABLET (UD) PO SCH ×2 (09:36→21:08)
[2017-07-16] MEDS: SPIRONOLACTONE 25 MG TABLET (FP) PO SCH (09:36)
[2017-07-16] MEDS: MIDODRINE HCL 5 MG TABLET PO SCH ×3 (09:36→17:40)
[2017-07-16] MEDS: PRENATAL VITAMINS W/ FOLIC ACID TABLET (FP) PO SCH (09:36)
[2017-07-16] MEDS: MAGNESIUM OXIDE 400 MG TABLET (FP) PO SCH ×2 (09:36→21:08)
[2017-07-16] MEDS: CEFAZOLIN 1 GM PUSH 1 GM/10 ML DISP.SYRIN IVPUSH SCH ×2 (09:36→21:08)
[2017-07-16] MEDS: PANTOPRAZOLE 40 MG TABLET (FP) PO SCH ×2 (09:36→21:08)
[2017-07-16] MEDS: SERTRALINE HCL 25 MG TABLET (FP) PO SCH (09:36)
[2017-07-16] MEDS: TRIAMCINOLONE ACET 0.5% OINT 15 GM TUBE TP SCH ×2 (09:37→21:08)
[2017-07-16] MEDS: SILVER SULFADIAZINE 1% TOP CREAM 50 GM JAR TP SCH ×2 (09:38→21:09)
--- NOTE | 2017-07-16 11:03 | PN ---
Progress Note, Physician Chief Complaint: Fall, AMS, alcohol abuse History of Present Illness: -NAD, sitting at the edge of the bed -feeling and looking much better today -pruritis -h/h improved -needs medical management such as blood work, if he goes to rehab -still has BLLE +2 edema -hepatic encephalopathy - Current Medication List Current Medications: Active Medications Diazepam (Valium -) 5 mg PO BID PRN PRN Reason: ANXIETY Last Admin: 07/15/17 22:19 Dose: 5 mg Furosemide (Lasix -) 40 mg PO DAILY [facility] Last Admin: 07/16/17 09:35 Dose: 40 mg Hydroxyzine HCl (Atarax -) 25 mg PO Q6H PRN PRN Reason: FOR ITCHING Last Admin: 07/16/17 04:05 Dose: 25 mg Cefazolin Sodium (Ancef -) 1 gm in 10 mls @ 120 mls/hr IVPUSH BID [facility] Last Admin: 07/16/17 09:36 Dose: 120 mls/hr Lactulose (Cephulac (Oral Use)) 20 gm PO TID [facility] Last Admin: 07/16/17 06:35 Dose: 20 gm Magnesium Oxide (Mag-Ox -) 400 mg PO BID [facility] Last Admin: 07/16/17 09:36 Dose: 400 mg Midodrine (Proamatine -) 5 mg PO TID-MID [facility] Last Admin: 07/16/17 09:36 Dose: 5 mg Octreotide Acetate (Sandostatin -) 100 mcg SQ TID [facility] Last Admin: 07/16/17 06:35 Dose: 100 mcg Oxycodone HCl (Roxicodone -) 5 mg PO Q4H PRN PRN Reason: PAIN Last Admin: 07/16/17 08:10 Dose: 5 mg Pantoprazole Sodium (Protonix -) 40 mg PO BID [facility] Last Admin: 07/16/17 09:36 Dose: 40 mg Multivit/Folic Acid/Iron ( Vitamins (Sjr) -) 1 tab PO DAILY [facility] Last Admin: 07/16/17 09:36 Dose: 1 tab Rifaximin (Xifaxan -) 550 mg PO BID [facility] Last Admin: 07/16/17 09:36 Dose: 550 mg Sertraline HCl (Zoloft -) 25 mg PO DAILY [facility] Last Admin: 07/16/17 09:36 Dose: 25 mg Silver Sulfadiazine (Silvadene -) 1 applic TP BID [facility] Last Admin: 07/16/17 09:38 Dose: 1 applic Spironolactone (Aldactone -) 50 mg PO DAILY [facility] Last Admin: 07/16/17 09:36 Dose: 50 mg Thiamine HCl (Vitamin B1 -) 100 mg PO HS [facility] Last Admin: 07/15/17 22:18 Dose: 100 mg Triamcinolone Acetonide (Aristocort 0.5% Ointment -) 1 applic TP BID [facility] Last Admin: 07/16/17 09:37 Dose: 1 applic - Objective Vital Signs: Vital Signs Temperature 98.1 F 07/16/17 05:57 Pulse Rate 85 07/16/17 05:57 Respiratory Rate 20 07/16/17 02:00 Blood Pressure 126/59 07/16/17 05:57 O2 Sat by Pulse Oximetry (%) 97 07/15/17 09:00 Constitutional: Yes: Well Nourished, No Distress, Calm Cardiovascular: Yes: Regular Rate and Rhythm Respiratory: Yes: Regular Gastrointestinal: Yes: Ascites Musculoskeletal: Yes: Muscle Weakness Extremities: Yes: Erythema Edema: LLE: 2+, RLE: 2+ Peripheral Pulses WNL: Yes Integumentary: Yes: Erythema, Rash (generalized) Neurological: Yes: Alert, Oriented, Lethargy Psychiatric: Yes: Alert, Oriented Labs: CBC, BMP 07/16/17 06:30 07/16/17 06:30 INR, PTT INR 2.02 (0.82-1.09) H 07/15/17 07:15 Problem List - Problems (1) Alcohol dependence with uncomplicated withdrawal Assessment/Plan: -needs a rehab with medical management, [facility] recommended -We would provide remote care as a primary care team, but he needs labs done while in rehab Code(s): F10.230 - ALCOHOL DEPENDENCE WITH WITHDRAWAL, UNCOMPLICATED (2) Alcoholic cirrhosis Code(s): K70.30 - ALCOHOLIC CIRRHOSIS OF LIVER WITHOUT ASCITES Qualifiers: Ascites presence: with ascites Qualified Code(s): K70.31 - Alcoholic cirrhosis of liver with ascites (3) Head injury Assessment/Plan: -CT head negative Code(s): S09.90XA - UNSPECIFIED INJURY OF HEAD, INITIAL ENCOUNTER Qualifiers: Encounter type: initial encounter Qualified Code(s): S09.90XA - Unspecified injury of head, initial encounter (4) Hepatic encephalopathy Assessment/Plan: -lactulose to have BM 4 x day -seen by GI Code(s): K72.90 - HEPATIC FAILURE, UNSPECIFIED WITHOUT COMA (5) Anemia Assessment/Plan: -improved -hematology -threshold for transfusion H/H 7.0/22.0 -monitor labs today Code(s): D64.9 - ANEMIA, UNSPECIFIED Qualifiers: Anemia type: unspecified type Qualified Code(s): D64.9 - Anemia, unspecified (6) Depression with anxiety Assessment/Plan: -seen by psychiatry, -to start on sertraline 25 mg po daily Code(s): F41.8 - OTHER SPECIFIED ANXIETY DISORDERS (7) Hepatorenal syndrome Code(s): K76.7 - HEPATORENAL SYNDROME (8) Cellulitis Assessment/Plan: BLLE -ID on board -IV abx Code(s): L03.90 - CELLULITIS, UNSPECIFIED Qualifiers: Site of cellulitis: extremity Site of cellulitis of extremity: lower extremity Laterality: unspecified laterality Qualified Code(s): L03.119 - Cellulitis of unspecified part of limb (9) Psoriasis Assessment/Plan: -triamcinolone to be applied by Nursing staff -Ketoconazole shampoo to be use as a body wash -pt permitted to shower during his stay in the hospital with shower chair and fall safety precautions -Systemic steroids not recommended, may cause more fluid retention Code(s): L40.9 - PSORIASIS, UNSPECIFIED Assessment/Plan see problem list
--- NOTE | 2017-07-16 13:27 | PN ---
Progress Note (short form) - Note Progress Note: Renal Follow up for PATRICIA Pt seen and examined at the bedside reports feeling weak nursing staff reports continued non-compliance with fluid restriction making urine no sob having loose BM's on lactulose Vital Signs Temperature 97.8 F 07/16/17 10:00 Pulse Rate 88 07/16/17 10:00 Respiratory Rate 18 07/16/17 10:00 Blood Pressure 131/63 07/16/17 10:00 O2 Sat by Pulse Oximetry (%) 97 07/15/17 09:00 Intake & Output 07/13/17 07/14/17 07/15/17 07/16/17 23:59 23:59 23:59 23:59 Intake Total 1450 750 800 Balance 1450 750 800 Weight 98.571 kg 98.543 kg 98.656 kg 97.976 kg NAD awake and alert RRR CTA + Abd distension >2+ LE edema CBC, BMP 07/16/17 06:30 07/16/17 06:30 Current Medications Diazepam (Valium -) 5 mg PO BID PRN PRN Reason: ANXIETY Last Admin: 07/15/17 22:19 Dose: 5 mg Furosemide (Lasix -) 40 mg PO BID@0600,1400 [facility] Last Admin: 07/16/17 13:07 Dose: 40 mg Hydroxyzine HCl (Atarax -) 25 mg PO Q6H PRN PRN Reason: FOR ITCHING Last Admin: 07/16/17 04:05 Dose: 25 mg Cefazolin Sodium (Ancef -) 1 gm in 10 mls @ 120 mls/hr IVPUSH BID [facility] Last Admin: 07/16/17 09:36 Dose: 120 mls/hr Lactulose (Cephulac (Oral Use)) 30 gm PO Q6HPO [facility] Last Admin: 07/16/17 12:00 Dose: 30 gm Magnesium Oxide (Mag-Ox -) 400 mg PO BID [facility] Last Admin: 07/16/17 09:36 Dose: 400 mg Midodrine (Proamatine -) 5 mg PO TID-MID [facility] Last Admin: 07/16/17 13:07 Dose: 5 mg Octreotide Acetate (Sandostatin -) 100 mcg SQ TID [facility] Last Admin: 07/16/17 13:07 Dose: 100 mcg Oxycodone HCl (Roxicodone -) 5 mg PO Q6H PRN PRN Reason: PAIN Pantoprazole Sodium (Protonix -) 40 mg PO BID [facility] Last Admin: 07/16/17 09:36 Dose: 40 mg Multivit/Folic Acid/Iron ( Vitamins (Sjr) -) 1 tab PO DAILY [facility] Last Admin: 07/16/17 09:36 Dose: 1 tab Rifaximin (Xifaxan -) 550 mg PO BID [facility] Last Admin: 07/16/17 09:36 Dose: 550 mg Sertraline HCl (Zoloft -) 25 mg PO DAILY [facility] Last Admin: 07/16/17 09:36 Dose: 25 mg Silver Sulfadiazine (Silvadene -) 1 applic TP BID [facility] Last Admin: 07/16/17 09:38 Dose: 1 applic Spironolactone (Aldactone -) 50 mg PO DAILY [facility] Last Admin: 07/16/17 09:36 Dose: 50 mg Thiamine HCl (Vitamin B1 -) 100 mg PO HS [facility] Last Admin: 07/15/17 22:18 Dose: 100 mg Triamcinolone Acetonide (Aristocort 0.5% Ointment -) 1 applic TP BID [facility] Last Admin: 07/16/17 09:37 Dose: 1 applic A/P 52 year old gentleman with PMhx of Alcohol Liver cirrhosis, ETOH Abuse, Psoriasis, Hx of PATRICIA/CKD presents s/p alcohol intake/intoxicated and developed PATRICIA during the hospitalization. #Acute Kidney Injury in setting of cirrhosis/diuretics/Anemia Hepto-Renal Syndrome Type 2 Renal function stable Increase lasix to 40mg BID as leg edema persists continue aldactone at present dose trend BUN/Cr, K and daily weights #Liver cirrhosis/ETOH intoxication Supportive Care for inpatient De-tox/Rehab placement on Lactulose oRnaldo Gonzalez DO
[2017-07-16] MEDS: THIAMINE HCL 100 MG TABLET (FP) PO SCH (21:08)
[2017-07-16] MEDS: diazePAM 5 MG TABLET PO PRN (21:08)
[2017-07-17] MEDS: LACTULOSE 20 GM/30 ML UDC (FOR ORAL USE ONLY) PO SCH ×4 (00:50→18:30)
[2017-07-17] MEDS: oxyCODONE HCL 5 MG TABLET PO PRN ×3 (03:48→18:31)
[2017-07-17] MEDS: hydrOXYzine HCL 25 MG TABLET (FP) PO PRN ×3 (03:48→18:30)
[2017-07-17] MEDS: FUROSEMIDE 40 MG TABLET (FP) PO SCH ×2 (05:51→14:34)
[2017-07-17] MEDS: OCTREOTIDE ACETATE 100 MCG/1 ML SQ SCH ×3 (05:55→22:00)
[2017-07-17] MEDS ORDERED: PT OWN MED DRAWER 7, Y5N ONE ×2 (06:08→21:25)
--- NOTE | 2017-07-17 09:50 | PN ---
Progress Note (short form) - Note Progress Note: Renal Follow up for PATRICIA Pt seen and examined at the bedside awake and alert no acute complaints Vital Signs Temperature 98.6 F 07/17/17 06:00 Pulse Rate 86 07/17/17 06:00 Respiratory Rate 20 07/17/17 06:00 Blood Pressure 136/68 07/17/17 06:00 O2 Sat by Pulse Oximetry (%) 98 07/16/17 21:00 Intake & Output 07/14/17 07/15/17 07/16/17 07/17/17 23:59 23:59 23:59 23:59 Intake Total 750 800 780 300 Balance 750 800 780 300 Weight 98.543 kg 98.656 kg 97.976 kg 95.799 kg NAD awake and alert RRR CTA + Abd distension >2+ LE edema CBC, BMP 07/16/17 06:30 07/16/17 06:30 Current Medications Diazepam (Valium -) 5 mg PO BID PRN PRN Reason: ANXIETY Last Admin: 07/16/17 21:08 Dose: 5 mg Furosemide (Lasix -) 40 mg PO BID@0600,1400 [facility] Last Admin: 07/17/17 05:51 Dose: 40 mg Hydroxyzine HCl (Atarax -) 25 mg PO Q6H PRN PRN Reason: FOR ITCHING Last Admin: 07/17/17 03:48 Dose: 25 mg Cefazolin Sodium (Ancef -) 1 gm in 10 mls @ 120 mls/hr IVPUSH BID [facility] Last Admin: 07/16/17 21:08 Dose: 120 mls/hr Ketoconazole (Nizoral 2% Shampoo -) 1 applic TP Q72H [facility] Lactulose (Cephulac (Oral Use)) 30 gm PO Q6HPO [facility] Last Admin: 07/17/17 05:51 Dose: 30 gm Magnesium Oxide (Mag-Ox -) 400 mg PO BID [facility] Last Admin: 07/16/17 21:08 Dose: 400 mg Midodrine (Proamatine -) 5 mg PO TID-MID [facility] Last Admin: 07/16/17 17:40 Dose: 5 mg Octreotide Acetate (Sandostatin -) 100 mcg SQ TID [facility] Last Admin: 07/17/17 05:55 Dose: 100 mcg Oxycodone HCl (Roxicodone -) 5 mg PO Q6H PRN PRN Reason: PAIN Last Admin: 07/17/17 03:48 Dose: 5 mg Pantoprazole Sodium (Protonix -) 40 mg PO BID [facility] Last Admin: 07/16/17 21:08 Dose: 40 mg Multivit/Folic Acid/Iron ( Vitamins (Sjr) -) 1 tab PO DAILY [facility] Last Admin: 07/16/17 09:36 Dose: 1 tab Rifaximin (Xifaxan -) 550 mg PO BID [facility] Last Admin: 07/16/17 21:08 Dose: 550 mg Sertraline HCl (Zoloft -) 25 mg PO DAILY [facility] Last Admin: 07/16/17 09:36 Dose: 25 mg Silver Sulfadiazine (Silvadene -) 1 applic TP BID [facility] Last Admin: 07/16/17 21:09 Dose: 1 applic Spironolactone (Aldactone -) 50 mg PO DAILY [facility] Last Admin: 07/16/17 09:36 Dose: 50 mg Thiamine HCl (Vitamin B1 -) 100 mg PO HS [facility] Last Admin: 07/16/17 21:08 Dose: 100 mg Triamcinolone Acetonide (Aristocort 0.5% Ointment -) 1 applic TP BID [facility] Last Admin: 07/16/17 21:08 Dose: 1 applic A/P 52 year old gentleman with PMhx of Alcohol Liver cirrhosis, ETOH Abuse, Psoriasis, Hx of PATRICIA/CKD presents s/p alcohol intake/intoxicated and developed PATRICIA during the hospitalization. #Acute Kidney Injury in setting of cirrhosis/diuretics/Anemia Hepto-Renal Syndrome Type 2 continue Lasix BID and Aldactone trend BUN/cr and electrolytes #Liver cirrhosis/ETOH intoxication Supportive Care for inpatient De-tox/Rehab placement on Lactulose Ronaldo Gonzalez DO
[2017-07-17] MEDS: CEFAZOLIN 1 GM PUSH 1 GM/10 ML DISP.SYRIN IVPUSH SCH ×2 (10:04→22:00)
[2017-07-17] MEDS: SPIRONOLACTONE 25 MG TABLET (FP) PO SCH (10:07)
[2017-07-17] MEDS: SERTRALINE HCL 25 MG TABLET (FP) PO SCH (10:08)
[2017-07-17] MEDS: RIFAXIMIN 550 MG TABLET (UD) PO SCH ×2 (10:08→22:00)
[2017-07-17] MEDS: PRENATAL VITAMINS W/ FOLIC ACID TABLET (FP) PO SCH (10:08)
[2017-07-17] MEDS: MAGNESIUM OXIDE 400 MG TABLET (FP) PO SCH ×2 (10:08→22:00)
[2017-07-17] MEDS: PANTOPRAZOLE 40 MG TABLET (FP) PO SCH ×2 (10:08→22:00)
[2017-07-17] MEDS: MIDODRINE HCL 5 MG TABLET PO SCH ×3 (10:08→18:31)
--- NOTE | 2017-07-17 10:11 | PN ---
Progress Note, Physician - Current Medication List Current Medications: Active Medications Diazepam (Valium -) 5 mg PO BID PRN PRN Reason: ANXIETY Last Admin: 07/16/17 21:08 Dose: 5 mg Furosemide (Lasix -) 40 mg PO BID@0600,1400 [facility] Last Admin: 07/17/17 05:51 Dose: 40 mg Hydroxyzine HCl (Atarax -) 25 mg PO Q6H PRN PRN Reason: FOR ITCHING Last Admin: 07/17/17 03:48 Dose: 25 mg Cefazolin Sodium (Ancef -) 1 gm in 10 mls @ 120 mls/hr IVPUSH BID [facility] Last Admin: 07/16/17 21:08 Dose: 120 mls/hr Ketoconazole (Nizoral 2% Shampoo -) 1 applic TP Q72H [facility] Lactulose (Cephulac (Oral Use)) 30 gm PO Q6HPO [facility] Last Admin: 07/17/17 05:51 Dose: 30 gm Magnesium Oxide (Mag-Ox -) 400 mg PO BID [facility] Last Admin: 07/16/17 21:08 Dose: 400 mg Midodrine (Proamatine -) 5 mg PO TID-MID [facility] Last Admin: 07/16/17 17:40 Dose: 5 mg Octreotide Acetate (Sandostatin -) 100 mcg SQ TID [facility] Last Admin: 07/17/17 05:55 Dose: 100 mcg Oxycodone HCl (Roxicodone -) 5 mg PO Q6H PRN PRN Reason: PAIN Last Admin: 07/17/17 03:48 Dose: 5 mg Pantoprazole Sodium (Protonix -) 40 mg PO BID [facility] Last Admin: 07/16/17 21:08 Dose: 40 mg Multivit/Folic Acid/Iron ( Vitamins (Sjr) -) 1 tab PO DAILY [facility] Last Admin: 07/16/17 09:36 Dose: 1 tab Rifaximin (Xifaxan -) 550 mg PO BID [facility] Last Admin: 07/16/17 21:08 Dose: 550 mg Sertraline HCl (Zoloft -) 25 mg PO DAILY [facility] Last Admin: 07/16/17 09:36 Dose: 25 mg Silver Sulfadiazine (Silvadene -) 1 applic TP BID [facility] Last Admin: 07/16/17 21:09 Dose: 1 applic Spironolactone (Aldactone -) 50 mg PO DAILY [facility] Last Admin: 07/16/17 09:36 Dose: 50 mg Thiamine HCl (Vitamin B1 -) 100 mg PO HS [facility] Last Admin: 07/16/17 21:08 Dose: 100 mg Triamcinolone Acetonide (Aristocort 0.5% Ointment -) 1 applic TP BID [facility] Last Admin: 07/16/17 21:08 Dose: 1 applic - Objective Vital Signs: Vital Signs Temperature 98.6 F 07/17/17 06:00 Pulse Rate 86 07/17/17 06:00 Respiratory Rate 20 07/17/17 06:00 Blood Pressure 136/68 07/17/17 06:00 O2 Sat by Pulse Oximetry (%) 98 07/16/17 21:00 Cardiovascular: Yes: Regular Rate and Rhythm Respiratory: Yes: Regular, CTA Bilaterally Gastrointestinal: Yes: Normal Bowel Sounds, Soft. No: Tenderness Labs: CBC, BMP 07/16/17 06:30 07/16/17 06:30 INR, PTT INR 2.02 (0.82-1.09) H 07/15/17 07:15 Problem List - Problems (1) Alcoholic cirrhosis Code(s): K70.30 - ALCOHOLIC CIRRHOSIS OF LIVER WITHOUT ASCITES Qualifiers: Ascites presence: with ascites Qualified Code(s): K70.31 - Alcoholic cirrhosis of liver with ascites (2) Alcohol intoxication Code(s): F10.929 - ALCOHOL USE, UNSPECIFIED WITH INTOXICATION, UNSPECIFIED Qualifiers: Complication of substance-induced condition: uncomplicated Qualified Code(s ): F10.920 - Alcohol use, unspecified with intoxication, uncomplicated (3) Anemia Code(s): D64.9 - ANEMIA, UNSPECIFIED Qualifiers: Anemia type: unspecified type Qualified Code(s): D64.9 - Anemia, unspecified Assessment/Plan - Problems (1) Alcohol dependence with uncomplicated withdrawal Assessment/Plan: -needs a rehab with medical management, [facility] recommended -We would provide remote care as a primary care team, but he needs labs done while in rehab Code(s): F10.230 - ALCOHOL DEPENDENCE WITH WITHDRAWAL, UNCOMPLICATED (2) Alcoholic cirrhosis Code(s): K70.30 - ALCOHOLIC CIRRHOSIS OF LIVER WITHOUT ASCITES Qualifiers: Ascites presence: with ascites Qualified Code(s): K70.31 - Alcoholic cirrhosis of liver with ascites (3) Head injury Assessment/Plan: -CT head negative Code(s): S09.90XA - UNSPECIFIED INJURY OF HEAD, INITIAL ENCOUNTER Qualifiers: Encounter type: initial encounter Qualified Code(s): S09.90XA - Unspecified injury of head, initial encounter (4) Hepatic encephalopathy Assessment/Plan: -lactulose to have BM 4 x day -seen by GI Code(s): K72.90 - HEPATIC FAILURE, UNSPECIFIED WITHOUT COMA (5) Anemia Assessment/Plan: -improved -hematology -threshold for transfusion H/H 7.0/22.0 -monitor labs today Code(s): D64.9 - ANEMIA, UNSPECIFIED Qualifiers: Anemia type: unspecified type Qualified Code(s): D64.9 - Anemia, unspecified (6) Depression with anxiety Assessment/Plan: -seen by psychiatry, -to start on sertraline 25 mg po daily Code(s): F41.8 - OTHER SPECIFIED ANXIETY DISORDERS (7) Hepatorenal syndrome Code(s): K76.7 - HEPATORENAL SYNDROME (8) Cellulitis Assessment/Plan: BLLE -ID on board -IV abx Code(s): L03.90 - CELLULITIS, UNSPECIFIED Qualifiers: Site of cellulitis: extremity Site of cellulitis of extremity: lower extremity Laterality: unspecified laterality Qualified Code(s): L03.119 - Cellulitis of unspecified part of limb (9) Psoriasis Assessment/Plan: -triamcinolone to be applied by Nursing staff -Ketoconazole shampoo to be use as a body wash -pt permitted to shower during his stay in the hospital with shower chair and fall safety precautions -Systemic steroids not recommended, may cause more fluid retention Code(s): L40.9 - PSORIASIS, UNSPECIFIED
--- NOTE | 2017-07-17 10:16 | PN ---
GI Progress Note Subjective: No acute events reported by nursing States feeling frustrated, otherwise no focal complaints. Reports 3 soft BM's yesterday - Objective Vital Signs: Vital Signs Temperature 98.6 F 07/17/17 06:00 Pulse Rate 86 07/17/17 06:00 Respiratory Rate 20 07/17/17 06:00 Blood Pressure 136/68 07/17/17 06:00 O2 Sat by Pulse Oximetry (%) 98 07/16/17 21:00 Constitutional: No Distress, Calm Eyes: Yes: Sclera Icterus Cardiovascular: Yes: Regular Rate and Rhythm. No: Murmur Respiratory: Yes: CTA Bilaterally ...Auscultate: Yes: Normoactive Bowel Sounds ...Palpate: No: Hepatomegaly, Splenomegaly, Tenderness Edema: Yes (b/l LE) Edema: LLE: 2+, RLE: 2+ Integumentary: Yes: Rash (H/O psoriasis) Neurological: Yes: Alert, Oriented (x3). No: [facility] Labs: CBC, BMP 07/16/17 06:30 07/16/17 06:30 INR, PTT INR 2.02 (0.82-1.09) H 07/15/17 07:15 Hepatic Panel Total Bilirubin 6.1 mg/dL (0.2-1.0) H 07/16/17 06:30 Direct Bilirubin 2.2 mg/dL (0.0-0.2) H 07/16/17 06:30 AST 29 U/L (15-37) 07/16/17 06:30 ALT 8 U/L (12-78) L 07/16/17 06:30 Alkaline Phosphatase 102 U/L (45-117) 07/16/17 06:30 Albumin 2.5 g/dl (3.4-5.0) L 07/16/17 06:30 Problem List - Problems (1) Alcoholic cirrhosis Assessment/Plan: Decompensated alcoholic cirrhosis with continued alcohol consumption Awaiting Detox placement Continuing Lactulose/Rifaximin regimen Code(s): K70.30 - ALCOHOLIC CIRRHOSIS OF LIVER WITHOUT ASCITES Qualifiers: Ascites presence: with ascites Qualified Code(s): K70.31 - Alcoholic cirrhosis of liver with ascites
[2017-07-17] MEDS: SILVER SULFADIAZINE 1% TOP CREAM 50 GM JAR TP SCH ×2 (12:22→22:51)
[2017-07-17] MEDS: TRIAMCINOLONE ACET 0.5% OINT 15 GM TUBE TP SCH ×2 (12:23→22:00)
[2017-07-17] MEDS: THIAMINE HCL 100 MG TABLET (FP) PO SCH (22:00)
[2017-07-18] MEDS: LACTULOSE 20 GM/30 ML UDC (FOR ORAL USE ONLY) PO SCH ×5 (00:15→17:39)
[2017-07-18] MEDS: oxyCODONE HCL 5 MG TABLET PO PRN ×3 (01:53→17:34)
[2017-07-18] MEDS: hydrOXYzine HCL 25 MG TABLET (FP) PO PRN (01:53)
[2017-07-18] MEDS: OCTREOTIDE ACETATE 100 MCG/1 ML SQ SCH ×3 (06:01→21:45)
[2017-07-18] MEDS: FUROSEMIDE 40 MG TABLET (FP) PO SCH ×2 (06:01→14:56)
[2017-07-18] MEDS ORDERED: PT OWN MED DRAWER 7, Y5N ONE ×3 (09:15→21:36)
[2017-07-18] MEDS: MIDODRINE HCL 5 MG TABLET PO SCH ×3 (09:16→17:34)
[2017-07-18] MEDS: diazePAM 5 MG TABLET PO PRN (09:16)
[2017-07-18] MEDS: RIFAXIMIN 550 MG TABLET (UD) PO SCH ×2 (09:16→21:45)
[2017-07-18] MEDS: SERTRALINE HCL 25 MG TABLET (FP) PO SCH (09:16)
[2017-07-18] MEDS: PRENATAL VITAMINS W/ FOLIC ACID TABLET (FP) PO SCH (09:16)
[2017-07-18] MEDS: PANTOPRAZOLE 40 MG TABLET (FP) PO SCH ×2 (09:16→21:45)
[2017-07-18] MEDS: SPIRONOLACTONE 25 MG TABLET (FP) PO SCH (09:17)
[2017-07-18] MEDS: MAGNESIUM OXIDE 400 MG TABLET (FP) PO SCH ×2 (09:17→21:45)
[2017-07-18] MEDS: CEFAZOLIN 1 GM PUSH 1 GM/10 ML DISP.SYRIN IVPUSH SCH ×2 (09:17→21:45)
[2017-07-18] MEDS: SILVER SULFADIAZINE 1% TOP CREAM 50 GM JAR TP SCH ×2 (09:20→21:45)
[2017-07-18] MEDS: TRIAMCINOLONE ACET 0.5% OINT 15 GM TUBE TP SCH ×2 (09:20→21:45)
[2017-07-18 09:24] LABS: ANION GAP 10 (8-16); CALCIUM 8.7 mg/dL (8.5-10.1); CO2 31 mmol/L (21-32); CREATININE 1.4 mg/dL (0.7-1.3); GLUCOSE,RANDOM 140 mg/dL (74-106); MAGNESIUM 1.6 mg/dL (1.8-2.4); PHOSPHOROUS 3.1 mg/dL (2.5-4.9)
--- NOTE | 2017-07-18 14:30 | PN ---
Progress Note, Physician - Current Medication List Current Medications: Active Medications Diazepam (Valium -) 5 mg PO BID PRN PRN Reason: ANXIETY Last Admin: 07/18/17 09:16 Dose: 5 mg Furosemide (Lasix -) 40 mg PO BID@0600,1400 [facility] Last Admin: 07/18/17 06:01 Dose: 40 mg Hydroxyzine HCl (Atarax -) 25 mg PO Q6H PRN PRN Reason: FOR ITCHING Last Admin: 07/18/17 01:53 Dose: 25 mg Cefazolin Sodium (Ancef -) 1 gm in 10 mls @ 120 mls/hr IVPUSH BID [facility] Last Admin: 07/18/17 09:17 Dose: 120 mls/hr Ketoconazole (Nizoral 2% Shampoo -) 1 applic TP Q72H [facility] Lactulose (Cephulac (Oral Use)) 30 gm PO Q6HPO [facility] Last Admin: 07/18/17 11:53 Dose: 30 gm Magnesium Oxide (Mag-Ox -) 400 mg PO BID [facility] Last Admin: 07/18/17 09:17 Dose: 400 mg Midodrine (Proamatine -) 5 mg PO TID-MID [facility] Last Admin: 07/18/17 09:16 Dose: 5 mg Octreotide Acetate (Sandostatin -) 100 mcg SQ TID [facility] Last Admin: 07/18/17 06:01 Dose: 100 mcg Oxycodone HCl (Roxicodone -) 5 mg PO Q6H PRN PRN Reason: PAIN Last Admin: 07/18/17 09:17 Dose: 5 mg Pantoprazole Sodium (Protonix -) 40 mg PO BID [facility] Last Admin: 07/18/17 09:16 Dose: 40 mg Multivit/Folic Acid/Iron ( Vitamins (Sjr) -) 1 tab PO DAILY [facility] Last Admin: 07/18/17 09:16 Dose: 1 tab Rifaximin (Xifaxan -) 550 mg PO BID [facility] Last Admin: 07/18/17 09:16 Dose: 550 mg Sertraline HCl (Zoloft -) 25 mg PO DAILY [facility] Last Admin: 07/18/17 09:16 Dose: 25 mg Silver Sulfadiazine (Silvadene -) 1 applic TP BID [facility] Last Admin: 07/18/17 09:20 Dose: 1 applic Spironolactone (Aldactone -) 50 mg PO DAILY [facility] Last Admin: 07/18/17 09:17 Dose: 50 mg Thiamine HCl (Vitamin B1 -) 100 mg PO HS [facility] Last Admin: 07/17/17 22:00 Dose: 100 mg Triamcinolone Acetonide (Aristocort 0.5% Ointment -) 1 applic TP BID [facility] Last Admin: 07/18/17 09:20 Dose: 1 applic - Objective Vital Signs: Vital Signs Temperature 97.7 F 07/18/17 08:00 Pulse Rate 91 H 07/18/17 08:00 Respiratory Rate 18 07/18/17 08:00 Blood Pressure 162/83 07/18/17 08:00 O2 Sat by Pulse Oximetry (%) 97 07/18/17 09:00 Cardiovascular: Yes: Regular Rate and Rhythm Respiratory: Yes: Regular, CTA Bilaterally Gastrointestinal: Yes: Normal Bowel Sounds, Soft, Ascites Labs: CBC, BMP 07/16/17 06:30 07/18/17 08:00 INR, PTT INR 2.02 (0.82-1.09) H 07/15/17 07:15 Problem List - Problems (1) Alcoholic cirrhosis Code(s): K70.30 - ALCOHOLIC CIRRHOSIS OF LIVER WITHOUT ASCITES Qualifiers: Ascites presence: with ascites Qualified Code(s): K70.31 - Alcoholic cirrhosis of liver with ascites (2) Alcohol intoxication Code(s): F10.929 - ALCOHOL USE, UNSPECIFIED WITH INTOXICATION, UNSPECIFIED Qualifiers: Complication of substance-induced condition: uncomplicated Qualified Code(s ): F10.920 - Alcohol use, unspecified with intoxication, uncomplicated (3) Anemia Code(s): D64.9 - ANEMIA, UNSPECIFIED Qualifiers: Anemia type: unspecified type Qualified Code(s): D64.9 - Anemia, unspecified Assessment/Plan - Problems (1) Alcohol dependence with uncomplicated withdrawal Assessment/Plan: -needs a rehab with medical management, [facility] recommended -We would provide remote care as a primary care team, but he needs labs done while in rehab Code(s): F10.230 - ALCOHOL DEPENDENCE WITH WITHDRAWAL, UNCOMPLICATED (2) Alcoholic cirrhosis Code(s): K70.30 - ALCOHOLIC CIRRHOSIS OF LIVER WITHOUT ASCITES Qualifiers: Ascites presence: with ascites Qualified Code(s): K70.31 - Alcoholic cirrhosis of liver with ascites (3) Head injury Assessment/Plan: -CT head negative Code(s): S09.90XA - UNSPECIFIED INJURY OF HEAD, INITIAL ENCOUNTER Qualifiers: Encounter type: initial encounter Qualified Code(s): S09.90XA - Unspecified injury of head, initial encounter (4) Hepatic encephalopathy Assessment/Plan: -lactulose to have BM 4 x day -seen by GI Code(s): K72.90 - HEPATIC FAILURE, UNSPECIFIED WITHOUT COMA (5) Anemia Assessment/Plan: -improved -hematology -threshold for transfusion H/H 7.0/22.0 -monitor labs today Code(s): D64.9 - ANEMIA, UNSPECIFIED Qualifiers: Anemia type: unspecified type Qualified Code(s): D64.9 - Anemia, unspecified (6) Depression with anxiety Assessment/Plan: -seen by psychiatry, -to start on sertraline 25 mg po daily Code(s): F41.8 - OTHER SPECIFIED ANXIETY DISORDERS (7) Hepatorenal syndrome Code(s): K76.7 - HEPATORENAL SYNDROME (8) Cellulitis Assessment/Plan: BLLE -ID on board -IV abx Code(s): L03.90 - CELLULITIS, UNSPECIFIED Qualifiers: Site of cellulitis: extremity Site of cellulitis of extremity: lower extremity Laterality: unspecified laterality Qualified Code(s): L03.119 - Cellulitis of unspecified part of limb (9) Psoriasis Assessment/Plan: -triamcinolone to be applied by Nursing staff -Ketoconazole shampoo to be use as a body wash -pt permitted to shower during his stay in the hospital with shower chair and fall safety precautions -Systemic steroids not recommended, may cause more fluid retention Code(s): L40.9 - PSORIASIS, UNSPECIFIED
[2017-07-18] MEDS ORDERED: MAGNESIUM SULF 50% (8.12 MEQ/2 ML-1 GM VIAL) IVPB ONE ×2 (19:00→21:45)
[2017-07-18] MEDS: THIAMINE HCL 100 MG TABLET (FP) PO SCH (21:45)
[2017-07-19] MEDS: oxyCODONE HCL 5 MG TABLET PO PRN ×2 (05:57→18:17)
[2017-07-19] MEDS: LACTULOSE 20 GM/30 ML UDC (FOR ORAL USE ONLY) PO SCH ×4 (05:57→18:05)
[2017-07-19] MEDS: FUROSEMIDE 40 MG TABLET (FP) PO SCH ×2 (05:57→14:36)
[2017-07-19] MEDS: OCTREOTIDE ACETATE 100 MCG/1 ML SQ SCH ×3 (05:59→21:52)
[2017-07-19] MEDS ORDERED: PT OWN MED DRAWER 7, Y5N ONE ×2 (10:11→18:05)
[2017-07-19] MEDS: SERTRALINE HCL 25 MG TABLET (FP) PO SCH (10:13)
[2017-07-19] MEDS: MAGNESIUM OXIDE 400 MG TABLET (FP) PO SCH ×2 (10:13→21:48)
[2017-07-19] MEDS: PANTOPRAZOLE 40 MG TABLET (FP) PO SCH ×2 (10:13→21:48)
[2017-07-19] MEDS: RIFAXIMIN 550 MG TABLET (UD) PO SCH ×2 (10:13→21:48)
[2017-07-19] MEDS: MIDODRINE HCL 5 MG TABLET PO SCH ×3 (10:13→18:15)
[2017-07-19] MEDS: SPIRONOLACTONE 25 MG TABLET (FP) PO SCH (10:13)
[2017-07-19] MEDS: PRENATAL VITAMINS W/ FOLIC ACID TABLET (FP) PO SCH (10:14)
[2017-07-19] MEDS: TRIAMCINOLONE ACET 0.5% OINT 15 GM TUBE TP SCH ×2 (10:16→21:49)
[2017-07-19] MEDS: SILVER SULFADIAZINE 1% TOP CREAM 50 GM JAR TP SCH ×2 (10:40→21:49)
[2017-07-19] MEDS: CEFAZOLIN 1 GM PUSH 1 GM/10 ML DISP.SYRIN IVPUSH SCH ×2 (10:40→21:10)
--- NOTE | 2017-07-19 11:01 | PN ---
Progress Note, Physician History of Present Illness: No acute events overnight. - Current Medication List Current Medications: Active Medications Furosemide (Lasix -) 40 mg PO BID@0600,1400 [facility] Last Admin: 07/19/17 05:57 Dose: 40 mg Cefazolin Sodium (Ancef -) 1 gm in 10 mls @ 120 mls/hr IVPUSH BID [facility] Last Admin: 07/19/17 10:40 Dose: 120 mls/hr Ketoconazole (Nizoral 2% Shampoo -) 1 applic TP Q72H [facility] Lactulose (Cephulac (Oral Use)) 30 gm PO Q6HPO [facility] Last Admin: 07/19/17 05:57 Dose: 30 gm Magnesium Oxide (Mag-Ox -) 400 mg PO BID [facility] Last Admin: 07/19/17 10:13 Dose: 400 mg Midodrine (Proamatine -) 5 mg PO TID-MID [facility] Last Admin: 07/19/17 10:13 Dose: 5 mg Octreotide Acetate (Sandostatin -) 100 mcg SQ TID [facility] Last Admin: 07/19/17 05:59 Dose: 100 mcg Oxycodone HCl (Roxicodone -) 5 mg PO Q8H PRN PRN Reason: PAIN Last Admin: 07/19/17 05:57 Dose: 5 mg Pantoprazole Sodium (Protonix -) 40 mg PO BID [facility] Last Admin: 07/19/17 10:13 Dose: 40 mg Multivit/Folic Acid/Iron ( Vitamins (Sjr) -) 1 tab PO DAILY [facility] Last Admin: 07/19/17 10:14 Dose: 1 tab Rifaximin (Xifaxan -) 550 mg PO BID [facility] Last Admin: 07/19/17 10:13 Dose: 550 mg Sertraline HCl (Zoloft -) 25 mg PO DAILY [facility] Last Admin: 07/19/17 10:13 Dose: 25 mg Silver Sulfadiazine (Silvadene -) 1 applic TP BID [facility] Last Admin: 07/19/17 10:40 Dose: 1 applic Spironolactone (Aldactone -) 50 mg PO DAILY [facility] Last Admin: 07/19/17 10:13 Dose: 50 mg Thiamine HCl (Vitamin B1 -) 100 mg PO HS [facility] Last Admin: 07/18/17 21:45 Dose: 100 mg Triamcinolone Acetonide (Aristocort 0.5% Ointment -) 1 applic TP BID [facility] Last Admin: 07/19/17 10:16 Dose: 1 applic - Objective Vital Signs: Vital Signs Temperature 98.1 F 07/19/17 09:10 Pulse Rate 88 07/19/17 09:10 Respiratory Rate 20 07/19/17 09:10 Blood Pressure 122/64 07/19/17 09:10 O2 Sat by Pulse Oximetry (%) 97 07/18/17 22:00 Constitutional: Yes: No Distress, Calm Gastrointestinal: Yes: Soft. No: Ascites, Distention, Tenderness Neurological: Yes: Lethargy Labs: CBC, BMP 07/16/17 06:30 07/18/17 08:00 INR, PTT INR 2.02 (0.82-1.09) H 07/15/17 07:15 Problem List - Problems (1) Alcohol dependence with uncomplicated withdrawal Code(s): F10.230 - ALCOHOL DEPENDENCE WITH WITHDRAWAL, UNCOMPLICATED (2) Alcoholic cirrhosis Code(s): K70.30 - ALCOHOLIC CIRRHOSIS OF LIVER WITHOUT ASCITES Qualifiers: Ascites presence: with ascites Qualified Code(s): K70.31 - Alcoholic cirrhosis of liver with ascites (3) Hepatic encephalopathy Code(s): K72.90 - HEPATIC FAILURE, UNSPECIFIED WITHOUT COMA (4) Alcohol intoxication Code(s): F10.929 - ALCOHOL USE, UNSPECIFIED WITH INTOXICATION, UNSPECIFIED Qualifiers: Complication of substance-induced condition: uncomplicated Qualified Code(s ): F10.920 - Alcohol use, unspecified with intoxication, uncomplicated (5) Anemia Code(s): D64.9 - ANEMIA, UNSPECIFIED Qualifiers: Anemia type: unspecified type Qualified Code(s): D64.9 - Anemia, unspecified (6) Jaundice Code(s): R17 - UNSPECIFIED JAUNDICE Assessment/Plan Awaiting rehab placement HRS Type 2 improved encephalopathy Lacutose tid standing order and Rifaximin. Target 4 bms/day Aldactone and lasix, monitor elctrolytes CBC, CMP daily 2 gm salt diet restriction prognosis poor
--- NOTE | 2017-07-19 13:30 | PN ---
Progress Note, Physician Chief Complaint: patient more tired and sleepy today says he is awake all night watching tv cannot sleep bc of itching and then sleeps during day time will repeat labs today - Current Medication List Current Medications: Active Medications Furosemide (Lasix -) 40 mg PO BID@0600,1400 [facility] Last Admin: 07/19/17 05:57 Dose: 40 mg Cefazolin Sodium (Ancef -) 1 gm in 10 mls @ 120 mls/hr IVPUSH BID [facility] Last Admin: 07/19/17 10:40 Dose: 120 mls/hr Ketoconazole (Nizoral 2% Shampoo -) 1 applic TP Q72H [facility] Lactulose (Cephulac (Oral Use)) 30 gm PO Q6HPO [facility] Last Admin: 07/19/17 05:57 Dose: 30 gm Magnesium Oxide (Mag-Ox -) 400 mg PO BID [facility] Last Admin: 07/19/17 10:13 Dose: 400 mg Midodrine (Proamatine -) 5 mg PO TID-MID [facility] Last Admin: 07/19/17 10:13 Dose: 5 mg Octreotide Acetate (Sandostatin -) 100 mcg SQ TID [facility] Last Admin: 07/19/17 05:59 Dose: 100 mcg Oxycodone HCl (Roxicodone -) 5 mg PO Q8H PRN PRN Reason: PAIN Last Admin: 07/19/17 05:57 Dose: 5 mg Pantoprazole Sodium (Protonix -) 40 mg PO BID [facility] Last Admin: 07/19/17 10:13 Dose: 40 mg Multivit/Folic Acid/Iron ( Vitamins (Sjr) -) 1 tab PO DAILY [facility] Last Admin: 07/19/17 10:14 Dose: 1 tab Rifaximin (Xifaxan -) 550 mg PO BID [facility] Last Admin: 07/19/17 10:13 Dose: 550 mg Sertraline HCl (Zoloft -) 25 mg PO DAILY [facility] Last Admin: 07/19/17 10:13 Dose: 25 mg Silver Sulfadiazine (Silvadene -) 1 applic TP BID [facility] Last Admin: 07/19/17 10:40 Dose: 1 applic Spironolactone (Aldactone -) 50 mg PO DAILY [facility] Last Admin: 07/19/17 10:13 Dose: 50 mg Thiamine HCl (Vitamin B1 -) 100 mg PO HS [facility] Last Admin: 07/18/17 21:45 Dose: 100 mg Triamcinolone Acetonide (Aristocort 0.5% Ointment -) 1 applic TP BID [facility] Last Admin: 07/19/17 10:16 Dose: 1 applic - Objective Vital Signs: Vital Signs Temperature 98.1 F 07/19/17 09:10 Pulse Rate 88 07/19/17 09:10 Respiratory Rate 20 07/19/17 09:10 Blood Pressure 122/64 07/19/17 09:10 O2 Sat by Pulse Oximetry (%) 97 07/18/17 22:00 Constitutional: Yes: Calm Neck: Yes: Trachea Midline Cardiovascular: Yes: Regular Rate and Rhythm, S1, S2 Respiratory: Yes: CTA Bilaterally Gastrointestinal: Yes: Soft, Ascites Edema: Yes Labs: CBC, BMP 07/16/17 06:30 07/18/17 08:00 INR, PTT INR 2.02 (0.82-1.09) H 07/15/17 07:15 Problem List - Problems (1) Alcohol dependence with uncomplicated withdrawal Assessment/Plan: completed the librium protocol folate and B1 spoke to Dr hilliard at [facility] facility once he is medically ready then only will he go to the facility- currently patient is on octreotide SQ Code(s): F10.230 - ALCOHOL DEPENDENCE WITH WITHDRAWAL, UNCOMPLICATED (2) Hepatorenal syndrome Assessment/Plan: octreotide SQ and lasix and aldactone repeat labs today magnesium ordered on midodrine as well Code(s): K76.7 - HEPATORENAL SYNDROME (3) Alcoholic cirrhosis Assessment/Plan: rifaximin lacutlose to one BM per day lasix and K dur check ammonia level today Code(s): K70.30 - ALCOHOLIC CIRRHOSIS OF LIVER WITHOUT ASCITES Qualifiers: Ascites presence: with ascites Qualified Code(s): K70.31 - Alcoholic cirrhosis of liver with ascites (4) Thrombocytopenia Assessment/Plan: if platelet count < 50K will stop heparin Code(s): D69.6 - THROMBOCYTOPENIA, UNSPECIFIED (5) Anemia Assessment/Plan: transfuse if h/h < 7.5 marcocytic anemia on folic acid Code(s): D64.9 - ANEMIA, UNSPECIFIED Qualifiers: Anemia type: unspecified type Qualified Code(s): D64.9 - Anemia, unspecified (6) Psoriasis Assessment/Plan: topical steroidal cream Code(s): L40.9 - PSORIASIS, UNSPECIFIED
[2017-07-19 14:31] LABS: ALBUMIN 2.5 g/dl (3.4-5.0); ALK PHOS 107 U/L (45-117); ANION GAP 9 (8-16); BILIRUBIN,TOTAL 4.2 mg/dL (0.2-1.0); CALCIUM 8.4 mg/dL (8.5-10.1); CO2 33 mmol/L (21-32); CREATININE 1.5 mg/dL (0.7-1.3); GLUCOSE,RANDOM 195 mg/dL (74-106); MAGNESIUM 1.8 mg/dL (1.8-2.4); SGOT/AST 34 U/L (15-37); SGPT/ALT 9 U/L (12-78); TOT PROT 6.8 g/dl (6.4-8.2)
--- NOTE | 2017-07-19 16:21 | PN ---
Progress Note (short form) - Note Progress Note: Renal Follow up for PATRICIA Pt seen and examined at the bedside complains of body pain no CP, SOB no N/V/D Vital Signs Temperature 98 F 07/19/17 15:44 Pulse Rate 84 07/19/17 15:44 Respiratory Rate 16 07/19/17 15:44 Blood Pressure 123/59 07/19/17 15:44 O2 Sat by Pulse Oximetry (%) 97 07/18/17 22:00 NAD awake and alert RRR CTA + Abd distension >2+ LE edema CBC, BMP 07/16/17 06:30 07/19/17 14:02 Current Medications Furosemide (Lasix -) 40 mg PO BID@0600,1400 [facility] Last Admin: 07/19/17 14:36 Dose: 40 mg Cefazolin Sodium (Ancef -) 1 gm in 10 mls @ 120 mls/hr IVPUSH BID [facility] Last Admin: 07/19/17 10:40 Dose: 120 mls/hr Ketoconazole (Nizoral 2% Shampoo -) 1 applic TP Q72H [facility] Lactulose (Cephulac (Oral Use)) 30 gm PO Q6HPO [facility] Last Admin: 07/19/17 14:36 Dose: 30 gm Magnesium Oxide (Mag-Ox -) 400 mg PO BID [facility] Last Admin: 07/19/17 10:13 Dose: 400 mg Midodrine (Proamatine -) 5 mg PO TID-MID [facility] Last Admin: 07/19/17 14:36 Dose: 5 mg Octreotide Acetate (Sandostatin -) 100 mcg SQ TID [facility] Last Admin: 07/19/17 14:40 Dose: 100 mcg Oxycodone HCl (Roxicodone -) 5 mg PO Q8H PRN PRN Reason: PAIN Last Admin: 07/19/17 05:57 Dose: 5 mg Pantoprazole Sodium (Protonix -) 40 mg PO BID [facility] Last Admin: 07/19/17 10:13 Dose: 40 mg Multivit/Folic Acid/Iron ( Vitamins (Sjr) -) 1 tab PO DAILY [facility] Last Admin: 07/19/17 10:14 Dose: 1 tab Rifaximin (Xifaxan -) 550 mg PO BID [facility] Last Admin: 07/19/17 10:13 Dose: 550 mg Sertraline HCl (Zoloft -) 25 mg PO DAILY [facility] Last Admin: 07/19/17 10:13 Dose: 25 mg Silver Sulfadiazine (Silvadene -) 1 applic TP BID [facility] Last Admin: 07/19/17 10:40 Dose: 1 applic Spironolactone (Aldactone -) 50 mg PO DAILY [facility] Last Admin: 07/19/17 10:13 Dose: 50 mg Thiamine HCl (Vitamin B1 -) 100 mg PO HS [facility] Last Admin: 07/18/17 21:45 Dose: 100 mg Triamcinolone Acetonide (Aristocort 0.5% Ointment -) 1 applic TP BID [facility] Last Admin: 07/19/17 10:16 Dose: 1 applic A/P 52 year old gentleman with PMhx of Alcohol Liver cirrhosis, ETOH Abuse, Psoriasis, Hx of PATRICIA/CKD presents s/p alcohol intake/intoxicated and developed PATRICIA during the hospitalization. #Acute Kidney Injury in setting of cirrhosis/diuretics/Anemia Hepto-Renal Syndrome Type 2 continue Lasix BID and Aldactone Cr up to 1.5 but pt warrants increased dose of diuretics given persistent edema and weight gain trend BUN/Cr daily fluid restriction/salt restriction #Liver cirrhosis/ETOH intoxication Supportive Care for inpatient De-tox/Rehab placement on Lactulose Ronaldo Gonzalez DO
[2017-07-19] MEDS: KETOCONAZOLE 2 % SHAMPOO 120 ML BOTTLE TP SCH (18:18)
[2017-07-19] MEDS: THIAMINE HCL 100 MG TABLET (FP) PO SCH (21:48)
[2017-07-20] MEDS: LACTULOSE 20 GM/30 ML UDC (FOR ORAL USE ONLY) PO SCH ×4 (00:05→17:49)
[2017-07-20] MEDS: oxyCODONE HCL 5 MG TABLET PO PRN (04:12)
[2017-07-20] MEDS: FUROSEMIDE 40 MG TABLET (FP) PO SCH ×2 (05:10→14:12)
[2017-07-20] MEDS: OCTREOTIDE ACETATE 100 MCG/1 ML SQ SCH (05:10)
[2017-07-20 08:27] LABS: BASO % 1.1 % (0-2.0); EOS % 3.7 % (0-4.5); MCH 33.5 pg (25.7-33.7); MCHC 33.5 g/dl (32.0-35.9); NEUT % 55.6 % (42.8-82.8); PLATELET COUNT 70 K/MM3 (134-434); RDW 17.8 % (11.9-15.9); WHITE BLOOD COUNT 7.2 K/mm3 (4.0-10.0)
[2017-07-20 09:02] LABS: ANION GAP 7 (8-16); CALCIUM 8.2 mg/dL (8.5-10.1); CO2 33 mmol/L (21-32); CREATININE 1.4 mg/dL (0.7-1.3); GLUCOSE,RANDOM 157 mg/dL (74-106); MAGNESIUM 1.8 mg/dL (1.8-2.4); PHOSPHOROUS 2.8 mg/dL (2.5-4.9)
[2017-07-20] MEDS: MAGNESIUM OXIDE 400 MG TABLET (FP) PO SCH ×2 (10:08→21:18)
[2017-07-20] MEDS: SERTRALINE HCL 25 MG TABLET (FP) PO SCH (10:08)
[2017-07-20] MEDS: PANTOPRAZOLE 40 MG TABLET (FP) PO SCH ×2 (10:08→21:18)
[2017-07-20] MEDS: RIFAXIMIN 550 MG TABLET (UD) PO SCH ×2 (10:08→21:18)
[2017-07-20] MEDS: SPIRONOLACTONE 25 MG TABLET (FP) PO SCH (10:08)
[2017-07-20] MEDS: CEFAZOLIN 1 GM PUSH 1 GM/10 ML DISP.SYRIN IVPUSH SCH (10:08)
[2017-07-20] MEDS: PRENATAL VITAMINS W/ FOLIC ACID TABLET (FP) PO SCH (10:09)
[2017-07-20] MEDS: MIDODRINE HCL 5 MG TABLET PO SCH ×3 (10:09→17:50)
[2017-07-20] MEDS: SILVER SULFADIAZINE 1% TOP CREAM 50 GM JAR TP SCH ×2 (10:09→21:19)
[2017-07-20] MEDS: TRIAMCINOLONE ACET 0.5% OINT 15 GM TUBE TP SCH ×2 (10:12→21:19)
--- NOTE | 2017-07-20 12:24 | PN ---
Progress Note, Physician History of Present Illness: No acute events overnight. - Current Medication List Current Medications: Active Medications Furosemide (Lasix -) 40 mg PO BID@0600,1400 [facility] Last Admin: 07/20/17 05:10 Dose: 40 mg Cefazolin Sodium (Ancef -) 1 gm in 10 mls @ 120 mls/hr IVPUSH BID [facility] Last Admin: 07/20/17 10:08 Dose: 120 mls/hr Ketoconazole (Nizoral 2% Shampoo -) 1 applic TP Q72H [facility] Last Admin: 07/19/17 18:18 Dose: Not Given Lactulose (Cephulac (Oral Use)) 30 gm PO Q6HPO [facility] Last Admin: 07/20/17 05:10 Dose: Not Given Magnesium Oxide (Mag-Ox -) 400 mg PO BID [facility] Last Admin: 07/20/17 10:08 Dose: 400 mg Midodrine (Proamatine -) 5 mg PO TID-MID [facility] Last Admin: 07/20/17 10:09 Dose: 5 mg Oxycodone HCl (Roxicodone -) 5 mg PO Q8H PRN PRN Reason: PAIN Last Admin: 07/20/17 04:12 Dose: 5 mg Pantoprazole Sodium (Protonix -) 40 mg PO BID [facility] Last Admin: 07/20/17 10:08 Dose: 40 mg Multivit/Folic Acid/Iron ( Vitamins (Sjr) -) 1 tab PO DAILY [facility] Last Admin: 07/20/17 10:09 Dose: 1 tab Rifaximin (Xifaxan -) 550 mg PO BID [facility] Last Admin: 07/20/17 10:08 Dose: 550 mg Sertraline HCl (Zoloft -) 25 mg PO DAILY [facility] Last Admin: 07/20/17 10:08 Dose: 25 mg Silver Sulfadiazine (Silvadene -) 1 applic TP BID [facility] Last Admin: 07/20/17 10:09 Dose: 1 applic Spironolactone (Aldactone -) 50 mg PO DAILY [facility] Last Admin: 07/20/17 10:08 Dose: 50 mg Thiamine HCl (Vitamin B1 -) 100 mg PO HS [facility] Last Admin: 07/19/17 21:48 Dose: 100 mg Triamcinolone Acetonide (Aristocort 0.5% Ointment -) 1 applic TP BID [facility] Last Admin: 07/20/17 10:12 Dose: 1 applic - Objective Vital Signs: Vital Signs Temperature 98.7 F 07/20/17 06:00 Pulse Rate 88 07/20/17 06:00 Respiratory Rate 20 07/20/17 06:00 Blood Pressure 143/65 07/20/17 06:00 O2 Sat by Pulse Oximetry (%) 97 07/18/17 22:00 Constitutional: Yes: No Distress, Calm Gastrointestinal: Yes: Soft. No: Distention, Melena, Rectal Bleeding, Tenderness, Vomiting Neurological: Yes: Asterixis, Lethargy Labs: CBC, BMP 07/20/17 08:00 07/20/17 08:00 INR, PTT INR 2.02 (0.82-1.09) H 07/15/17 07:15 Laboratory Results - last 24 hr 07/19/17 07/19/17 07/20/17 14:02 14:02 08:00 WBC 7.2 RBC 2.73 L Hgb 9.1 L Hct 27.3 L MCV 100.0 H MCH 33.5 MCHC 33.5 RDW 17.8 H Plt Count 70 L MPV 8.0 Neutrophils % 55.6 Lymphocytes % 26.4 D Monocytes % 13.2 H Eosinophils % 3.7 Basophils % 1.1 Sodium 137 Potassium 3.8 Chloride 95 L Carbon Dioxide 33 H Anion Gap 9 BUN 12 Creatinine 1.5 H Creat Clearance w eGFR 48.77 Random Glucose 195 H D Calcium 8.4 L Phosphorus Magnesium 1.8 Total Bilirubin 4.2 H D AST 34 ALT 9 L Alkaline Phosphatase 107 Ammonia 50.78 H Total Protein 6.8 Albumin 2.5 L 07/20/17 08:00 WBC RBC Hgb Hct MCV MCH MCHC RDW Plt Count MPV Neutrophils % Lymphocytes % Monocytes % Eosinophils % Basophils % Sodium 136 Potassium 3.8 Chloride 96 L Carbon Dioxide 33 H Anion Gap 7 L BUN 13 Creatinine 1.4 H Creat Clearance w eGFR Random Glucose 157 H Calcium 8.2 L Phosphorus 2.8 Magnesium 1.8 Total Bilirubin AST ALT Alkaline Phosphatase Ammonia Total Protein Albumin Problem List - Problems (1) Alcohol dependence with uncomplicated withdrawal Code(s): F10.230 - ALCOHOL DEPENDENCE WITH WITHDRAWAL, UNCOMPLICATED (2) Alcoholic cirrhosis Code(s): K70.30 - ALCOHOLIC CIRRHOSIS OF LIVER WITHOUT ASCITES Qualifiers: Ascites presence: with ascites Qualified Code(s): K70.31 - Alcoholic cirrhosis of liver with ascites (3) Hepatic encephalopathy Code(s): K72.90 - HEPATIC FAILURE, UNSPECIFIED WITHOUT COMA (4) Alcohol intoxication Code(s): F10.929 - ALCOHOL USE, UNSPECIFIED WITH INTOXICATION, UNSPECIFIED Qualifiers: Complication of substance-induced condition: uncomplicated Qualified Code(s ): F10.920 - Alcohol use, unspecified with intoxication, uncomplicated (5) Anemia Code(s): D64.9 - ANEMIA, UNSPECIFIED Qualifiers: Anemia type: unspecified type Qualified Code(s): D64.9 - Anemia, unspecified (6) Jaundice Code(s): R17 - UNSPECIFIED JAUNDICE Assessment/Plan Awaiting rehab placement. HRS Type 2 stable Encephalopathy Lacutose tid standing order and Rifaximin. Target 4 bms/day Aldactone and lasix, monitor elctrolytes 2 gm salt diet restriction Prognosis poor monitor Cr, BUN, electrolytes
--- NOTE | 2017-07-20 12:25 | PN ---
Progress Note (short form) - Note Progress Note: Renal Follow up for PATRICIA Pt seen and examined at the bedside awake and alert puritis is improved denies any sob, chest pain Vital Signs Temperature 98.7 F 07/20/17 06:00 Pulse Rate 88 07/20/17 06:00 Respiratory Rate 20 07/20/17 06:00 Blood Pressure 143/65 07/20/17 06:00 O2 Sat by Pulse Oximetry (%) 97 07/18/17 22:00 Intake & Output 07/17/17 07/18/17 07/19/17 07/20/17 23:59 23:59 23:59 23:59 Intake Total 950 940 200 165 Balance 950 940 200 165 Weight 95.799 kg 95.708 kg 96.162 kg NAD awake and alert 3+ edema in LE + ascities CBC, BMP 07/20/17 08:00 07/20/17 08:00 Current Medications Furosemide (Lasix -) 40 mg PO BID@0600,1400 [facility] Last Admin: 07/20/17 05:10 Dose: 40 mg Cefazolin Sodium (Ancef -) 1 gm in 10 mls @ 120 mls/hr IVPUSH BID [facility] Last Admin: 07/20/17 10:08 Dose: 120 mls/hr Ketoconazole (Nizoral 2% Shampoo -) 1 applic TP Q72H [facility] Last Admin: 07/19/17 18:18 Dose: Not Given Lactulose (Cephulac (Oral Use)) 30 gm PO Q6HPO [facility] Last Admin: 07/20/17 05:10 Dose: Not Given Magnesium Oxide (Mag-Ox -) 400 mg PO BID [facility] Last Admin: 07/20/17 10:08 Dose: 400 mg Midodrine (Proamatine -) 5 mg PO TID-MID [facility] Last Admin: 07/20/17 10:09 Dose: 5 mg Oxycodone HCl (Roxicodone -) 5 mg PO Q8H PRN PRN Reason: PAIN Last Admin: 07/20/17 04:12 Dose: 5 mg Pantoprazole Sodium (Protonix -) 40 mg PO BID [facility] Last Admin: 07/20/17 10:08 Dose: 40 mg Multivit/Folic Acid/Iron ( Vitamins (Sjr) -) 1 tab PO DAILY [facility] Last Admin: 07/20/17 10:09 Dose: 1 tab Rifaximin (Xifaxan -) 550 mg PO BID [facility] Last Admin: 07/20/17 10:08 Dose: 550 mg Sertraline HCl (Zoloft -) 25 mg PO DAILY [facility] Last Admin: 07/20/17 10:08 Dose: 25 mg Silver Sulfadiazine (Silvadene -) 1 applic TP BID [facility] Last Admin: 07/20/17 10:09 Dose: 1 applic Spironolactone (Aldactone -) 50 mg PO DAILY [facility] Last Admin: 07/20/17 10:08 Dose: 50 mg Thiamine HCl (Vitamin B1 -) 100 mg PO HS [facility] Last Admin: 07/19/17 21:48 Dose: 100 mg Triamcinolone Acetonide (Aristocort 0.5% Ointment -) 1 applic TP BID [facility] Last Admin: 07/20/17 10:12 Dose: 1 applic A/P 52 year old gentleman with PMhx of Alcohol Liver cirrhosis, ETOH Abuse, Psoriasis, Hx of PATRICIA/CKD presents s/p alcohol intake/intoxicated and developed PATRICIA during the hospitalization. #Acute Kidney Injury in setting of cirrhosis/diuretics/Anemia Hepto-Renal Syndrome Type 2 Renal function and electrolytes stable continue Lasix and Aldactone d/c Octreotide today trend BUN/Cr dialy #Liver cirrhosis/ETOH intoxication Supportive Care for inpatient De-tox/Rehab placement on Lactulose Ronaldo Gonzalez DO
--- NOTE | 2017-07-20 13:59 | PN ---
Progress Note, Physician Chief Complaint: spoke to patient about oxycodone and stoping it i saw the MAR he only took one dose since wednesday will stop it awaiting [facility] to call back - Current Medication List Current Medications: Active Medications Furosemide (Lasix -) 40 mg PO BID@0600,1400 [facility] Last Admin: 07/20/17 05:10 Dose: 40 mg Ketoconazole (Nizoral 2% Shampoo -) 1 applic TP Q72H [facility] Last Admin: 07/19/17 18:18 Dose: Not Given Lactulose (Cephulac (Oral Use)) 30 gm PO Q6HPO [facility] Last Admin: 07/20/17 05:10 Dose: Not Given Magnesium Oxide (Mag-Ox -) 400 mg PO BID [facility] Last Admin: 07/20/17 10:08 Dose: 400 mg Midodrine (Proamatine -) 5 mg PO TID-MID [facility] Last Admin: 07/20/17 10:09 Dose: 5 mg Pantoprazole Sodium (Protonix -) 40 mg PO BID [facility] Last Admin: 07/20/17 10:08 Dose: 40 mg Multivit/Folic Acid/Iron ( Vitamins (Sjr) -) 1 tab PO DAILY [facility] Last Admin: 07/20/17 10:09 Dose: 1 tab Rifaximin (Xifaxan -) 550 mg PO BID [facility] Last Admin: 07/20/17 10:08 Dose: 550 mg Sertraline HCl (Zoloft -) 25 mg PO DAILY [facility] Last Admin: 07/20/17 10:08 Dose: 25 mg Silver Sulfadiazine (Silvadene -) 1 applic TP BID [facility] Last Admin: 07/20/17 10:09 Dose: 1 applic Spironolactone (Aldactone -) 50 mg PO DAILY [facility] Last Admin: 07/20/17 10:08 Dose: 50 mg Thiamine HCl (Vitamin B1 -) 100 mg PO HS [facility] Last Admin: 07/19/17 21:48 Dose: 100 mg Triamcinolone Acetonide (Aristocort 0.5% Ointment -) 1 applic TP BID [facility] Last Admin: 07/20/17 10:12 Dose: 1 applic - Objective Vital Signs: Vital Signs Temperature 98.7 F 07/20/17 06:00 Pulse Rate 88 07/20/17 06:00 Respiratory Rate 20 07/20/17 06:00 Blood Pressure 143/65 07/20/17 06:00 O2 Sat by Pulse Oximetry (%) 97 07/18/17 22:00 Constitutional: Yes: Calm Cardiovascular: Yes: Regular Rate and Rhythm, S1, S2 Respiratory: Yes: CTA Bilaterally Gastrointestinal: Yes: Soft, Ascites Extremities: Yes: Other (venous stasis changes) Neurological: Yes: Alert, Oriented (to name) Labs: CBC, BMP 07/20/17 08:00 07/20/17 08:00 INR, PTT INR 2.02 (0.82-1.09) H 07/15/17 07:15 Problem List - Problems (1) Alcohol dependence with uncomplicated withdrawal Assessment/Plan: completed the librium protocol folate and B1 Code(s): F10.230 - ALCOHOL DEPENDENCE WITH WITHDRAWAL, UNCOMPLICATED (2) Hepatorenal syndrome Assessment/Plan: lasix and aldactone octreotide stopped repeat labs today magnesium is ok on midodrine as well Code(s): K76.7 - HEPATORENAL SYNDROME (3) Alcoholic cirrhosis Assessment/Plan: rifaximin lacutlose to one BM per day lasix and K dur ammonia elevated but less than before on lactulose Qualifiers: Ascites presence: with ascites Qualified Code(s): K70.31 - Alcoholic cirrhosis of liver with ascites (4) Thrombocytopenia Assessment/Plan: if platelet count < 50K will stop heparin Code(s): D69.6 - THROMBOCYTOPENIA, UNSPECIFIED (5) Anemia Assessment/Plan: transfuse if h/h < 7.5 marcocytic anemia on folic acid Code(s): D64.9 - ANEMIA, UNSPECIFIED Qualifiers: Anemia type: unspecified type Qualified Code(s): D64.9 - Anemia, unspecified (6) Psoriasis Assessment/Plan: topical steroidal cream Code(s): L40.9 - PSORIASIS, UNSPECIFIED Assessment/Plan awaiting [facility] to accept patient
--- NOTE | 2017-07-20 14:03 | DS ---
Physical Examination Vital Signs: Vital Signs Temperature 98.7 F 07/20/17 06:00 Pulse Rate 88 07/20/17 06:00 Respiratory Rate 20 07/20/17 06:00 Blood Pressure 143/65 07/20/17 06:00 O2 Sat by Pulse Oximetry (%) 97 07/18/17 22:00 Constitutional: Yes: Calm Neck: Yes: Trachea Midline Cardiovascular: Yes: Regular Rate and Rhythm, S1, S2 Respiratory: Yes: CTA Bilaterally Gastrointestinal: Yes: Soft, Ascites Extremities: Yes: Other (dry skin psoaritic plaques) Edema: Yes Neurological: Yes: Alert, Oriented Labs: CBC, BMP 07/20/17 08:00 07/20/17 08:00 Discharge Summary Reason For Visit: ALCOHOL ABUSE,FALL,DEHYDRATION Current Active Problems Alcohol dependence with uncomplicated withdrawal (Acute) Alcoholic cirrhosis (Acute) Dehydration (Acute) Head injury (Acute) Hepatic encephalopathy (Acute) Hepatorenal syndrome (Acute) Hospital Course: 52-year-old male history of depression, alcohol cirrhosis complicated by ascites , varices and encephalopathy,recently taken off transplant list as patient continues to drink, status post rehabilitation over one year ago, hypertension, brought in by for fall in setting of alcohol intake today. Of note, I saw patient for exact same thing [address] was normal. Labs were baseline and patient was discharged in care of family after a period of observation in the ED were patient sobered up. Patient does not remember details of fall but does admit to drinking today. states her niece found patient lying on the floor an hour or 2 ago. Patient denying any pain at this time and is oriented 3. No GODWIN, dizziness, visual changes, focal weakness, CP, SOB, neck or back pain. As per , patient and family wants patient to go to a detox facility but not to [facility] [place]. States she has a facility in mind and that she contacted Dr Ashley who wants pt admitted to be medically tuned up prior to being transferred to a detox facility - Past Medical History Cardiovascular: Yes: HTN Gastrointestinal: Yes: Ascites Hepatobiliary: Yes: Cirrhosis (Alcohol induced, decompensated), Other (History of severe alcoholic hepatitis, hepatic encephalopathy) Musculoskeletal: Yes: Other (Cellulitis and tenosynovitis +/- osteomyelitis 3rd/ 4th digit of left hand) Dermatology: Yes: Cellulitis (of LE and of hand), Psoriasis - Smoking History Smoking history: Never smoked Have you smoked in the past 12 months: No - Alcohol/Substance Use Hx Alcohol Use: Yes History of Substance Use: reports: None - Social History ADL: Independent Occupation: disabled History of Recent Travel: No in hospital: completed librium protocol on b1 and folate went in hepatorenal syndrome got albumin, ocretoide , now reolved on lasix and aldactone cirrhosis on lactulose and rifaxmin on zoloft plan to go to [facility] Condition: Fair - Instructions Diet, Activity, Other Instructions: -Low Sodium diet -Repeat CBC, CMP, PT/INR in 1 week -Transfuse PRBC for H/H below 7.0/22.0 -Hold any anticoagulation for platelets below 50 -Furosemide 40 mg po daily -Add Spironolactone 100 mg po Daily -Add potassium Chloride 20 meq PO Daily -Continue Lactulose for BM 3-4 x day Disposition: TRANSFER ACUTE CARE/OTHER HOSP - Home Medications Comprehensive Discharge Medication List: Ambulatory Orders Thiamine HCl [Vitamin B1] 100 mg PO DAILY 12/21/16 Magnesium Oxide [Mag-Ox -] 400 mg PO BID tablet 06/02/17 Betamethasone Dipropionate [Diprosone 0.05% Cream -] 1 applic TP BID #60 gr Folic Acid - 1 mg PO DAILY #30 tablet 06/23/17 Furosemide [Lasix -] 40 mg PO DAILY #30 tablet 06/23/17 Hydroxyzine HCl [Atarax -] 25 mg PO Q6H PRN #60 tablet 06/23/17 Lactulose (Oral Use) [Cephulac -] 20 gm PO DAILY #900 ml 06/23/17 Pantoprazole Sodium [Protonix -] 40 mg PO BID #60 tab 06/23/17 Rifaximin [Xifaxan -] 550 mg PO BID #60 tablet 06/23/17
[2017-07-20] MEDS: THIAMINE HCL 100 MG TABLET (FP) PO SCH (21:18)
[2017-07-21] MEDS: LACTULOSE 20 GM/30 ML UDC (FOR ORAL USE ONLY) PO SCH ×4 (01:43→17:55)
[2017-07-21] MEDS: FUROSEMIDE 40 MG TABLET (FP) PO SCH ×2 (06:36→13:59)
--- NOTE | 2017-07-21 08:25 | DS ---
Physical Examination Vital Signs: Vital Signs Temperature 98.5 F 07/21/17 05:50 Pulse Rate 85 07/21/17 05:50 Respiratory Rate 20 07/21/17 05:50 Blood Pressure 139/71 07/21/17 05:50 O2 Sat by Pulse Oximetry (%) 98 07/20/17 21:00 Findings/Remarks: c/o intermittent rib oain since his fall looks comfortable Cardiovascular: Yes: Regular Rate and Rhythm Respiratory: Yes: Regular, CTA Bilaterally Gastrointestinal: Yes: Normal Bowel Sounds, Soft, Ascites Edema: No Labs: CBC, BMP 07/20/17 08:00 Discharge Summary Reason For Visit: ALCOHOL ABUSE,FALL,DEHYDRATION Current Active Problems Alcohol dependence with uncomplicated withdrawal (Acute) Alcoholic cirrhosis (Acute) Dehydration (Acute) Head injury (Acute) Hepatic encephalopathy (Acute) Hepatorenal syndrome (Acute) Hospital Course: 52-year-old male history of depression, alcohol cirrhosis complicated by ascites , varices and encephalopathy,recently taken off transplant list as patient continues to drink, status post rehabilitation over one year ago, hypertension, brought in by for fall in setting of alcohol intake today. Of note, I saw patient for exact same thing [address] was normal. Labs were baseline and patient was discharged in care of family after a period of observation in the ED were patient sobered up. Patient does not remember details of fall but does admit to drinking today. states her niece found patient lying on the floor an hour or 2 ago. Patient denying any pain at this time and is oriented 3. No GODWIN, dizziness, visual changes, focal weakness, CP, SOB, neck or back pain. As per , patient and family wants patient to go to a detox facility but not to [facility]. States she has a facility in mind and that she contacted Dr Ashley who wants pt admitted to be medically tuned up prior to being transferred to a detox facility - Past Medical History Cardiovascular: Yes: HTN Gastrointestinal: Yes: Ascites Hepatobiliary: Yes: Cirrhosis (Alcohol induced, decompensated), Other (History of severe alcoholic hepatitis, hepatic encephalopathy) Musculoskeletal: Yes: Other (Cellulitis and tenosynovitis +/- osteomyelitis 3rd/ 4th digit of left hand) Dermatology: Yes: Cellulitis (of LE and of hand), Psoriasis - Smoking History Smoking history: Never smoked Have you smoked in the past 12 months: No - Alcohol/Substance Use Hx Alcohol Use: Yes History of Substance Use: reports: None - Social History ADL: Independent Occupation: disabled History of Recent Travel: No in hospital: completed librium protocol on b1 and folate went in hepatorenal syndrome got albumin, ocretoide , now reolved on lasix and aldactone cirrhosis on lactulose and rifaxmin on zoloft see problem list for details plan to go to [facility] - Problems (1) Alcohol dependence with uncomplicated withdrawal Assessment/Plan: completed the librium protocol folate and B1 Code(s): F10.230 - ALCOHOL DEPENDENCE WITH WITHDRAWAL, UNCOMPLICATED (2) Hepatorenal syndrome Assessment/Plan: lasix and aldactone octreotide stopped repeat labs stable magnesium is ok on midodrine as well Code(s): K76.7 - HEPATORENAL SYNDROME (3) Alcoholic cirrhosis Assessment/Plan: rifaximin lacutlose to one BM per day lasix and K dur ammonia elevated but less than before on lactulose Qualifiers: Ascites presence: with ascites Qualified Code(s): K70.31 - Alcoholic cirrhosis of liver with ascites (4) Thrombocytopenia Assessment/Plan: if platelet count < 50K will stop heparin Code(s): D69.6 - THROMBOCYTOPENIA, UNSPECIFIED (5) Anemia Assessment/Plan: transfuse if h/h < 7.5 marcocytic anemia on folic acid Code(s): D64.9 - ANEMIA, UNSPECIFIED Qualifiers: Anemia type: unspecified type Qualified Code(s): D64.9 - Anemia, unspecified (6) Psoriasis Assessment/Plan: topical steroidal cream Code(s): L40.9 - PSORIASIS, UNSPECIFIED Condition: Fair - Instructions Diet, Activity, Other Instructions: -Low Sodium diet -Repeat CBC, CMP, PT/INR in 1 week -Transfuse PRBC for H/H below 7.0/22.0 -Hold any anticoagulation for platelets below 50 -Furosemide 40 mg po daily -Add Spironolactone 100 mg po Daily -Add potassium Chloride 20 meq PO Daily -Continue Lactulose for BM 3-4 x day Disposition: TRANSFER ACUTE CARE/OTHER HOSP - Home Medications Comprehensive Discharge Medication List: Ambulatory Orders Thiamine HCl [Vitamin B1] 100 mg PO DAILY 12/21/16 Magnesium Oxide [Mag-Ox -] 400 mg PO BID tablet 06/02/17 Betamethasone Dipropionate [Diprosone 0.05% Cream -] 1 applic TP BID #60 gr Folic Acid - 1 mg PO DAILY #30 tablet 06/23/17 Furosemide [Lasix -] 40 mg PO DAILY #30 tablet 06/23/17 Lactulose (Oral Use) [Cephulac -] 20 gm PO DAILY #900 ml 06/23/17 Pantoprazole Sodium [Protonix -] 40 mg PO BID #60 tab 06/23/17 Rifaximin [Xifaxan -] 550 mg PO BID #60 tablet 06/23/17 Furosemide [Lasix -] 40 mg PO BID@0600,1400 tablet 07/20/17 Lactulose (Oral Use) [Cephulac -] 30 gm PO Q6HPO udc 07/20/17 Magnesium Oxide [Mag-Ox -] 400 mg PO BID tablet 07/20/17 Midodrine HCl [Proamatine -] 5 mg PO TID-MID tablet 07/20/17 Spironolactone [Aldactone -] 50 mg PO DAILY tablet 07/20/17 Triamcinolone 0.5% Ointment [Aristocort 0.5% Ointment -] 1 applic TP BID tube 07/20/17
[2017-07-21 08:28] LABS: ANION GAP 6 (8-16); CALCIUM 8.7 mg/dL (8.5-10.1); CO2 35 mmol/L (21-32); CREATININE 1.3 mg/dL (0.7-1.3); GLUCOSE,RANDOM 124 mg/dL (74-106); MAGNESIUM 1.6 mg/dL (1.8-2.4); PHOSPHOROUS 3.1 mg/dL (2.5-4.9)
[2017-07-21] MEDS ORDERED: PT OWN MED DRAWER 7, Y5N ONE ×3 (08:42→13:55)
[2017-07-21] MEDS: TRIAMCINOLONE ACET 0.5% OINT 15 GM TUBE TP SCH ×2 (10:29→21:19)
[2017-07-21] MEDS: PANTOPRAZOLE 40 MG TABLET (FP) PO SCH ×2 (10:30→21:18)
[2017-07-21] MEDS: RIFAXIMIN 550 MG TABLET (UD) PO SCH ×2 (10:30→21:18)
[2017-07-21] MEDS: SPIRONOLACTONE 25 MG TABLET (FP) PO SCH (10:30)
[2017-07-21] MEDS: PRENATAL VITAMINS W/ FOLIC ACID TABLET (FP) PO SCH (10:31)
[2017-07-21] MEDS: SERTRALINE HCL 25 MG TABLET (FP) PO SCH (10:31)
[2017-07-21] MEDS: MAGNESIUM OXIDE 400 MG TABLET (FP) PO SCH ×2 (10:31→21:18)
[2017-07-21] MEDS: MIDODRINE HCL 5 MG TABLET PO SCH ×3 (10:37→17:55)
[2017-07-21] MEDS: KETOCONAZOLE 2 % SHAMPOO 120 ML BOTTLE TP SCH (12:36)
[2017-07-21] MEDS: SILVER SULFADIAZINE 1% TOP CREAM 50 GM JAR TP SCH ×2 (12:37→21:19)
[2017-07-21] MEDS: THIAMINE HCL 100 MG TABLET (FP) PO SCH (21:18)
[2017-07-22] MEDS: LACTULOSE 20 GM/30 ML UDC (FOR ORAL USE ONLY) PO SCH ×3 (00:35→06:18)
[2017-07-22] MEDS: FUROSEMIDE 40 MG TABLET (FP) PO SCH ×2 (06:14→06:17)
--- NOTE | 2017-07-22 07:34 | DS ---
Physical Examination Vital Signs: Vital Signs Temperature 97.9 F 07/22/17 06:16 Pulse Rate 89 07/22/17 06:16 Respiratory Rate 18 07/22/17 06:16 Blood Pressure 134/75 07/22/17 06:16 O2 Sat by Pulse Oximetry (%) 97 07/21/17 21:00 Cardiovascular: Yes: Regular Rate and Rhythm Respiratory: Yes: Regular, CTA Bilaterally Gastrointestinal: Yes: Normal Bowel Sounds, Soft, Ascites. No: Tenderness Edema: Yes Integumentary: Yes: Venous Stasis Changes Wound/Incision: Yes: Reddened Labs: CBC, BMP 07/20/17 08:00 07/21/17 06:30 Discharge Summary Reason For Visit: ALCOHOL ABUSE,FALL,DEHYDRATION Current Active Problems Alcohol dependence with uncomplicated withdrawal (Acute) Alcoholic cirrhosis (Acute) Dehydration (Acute) Head injury (Acute) Hepatic encephalopathy (Acute) Hepatorenal syndrome (Acute) Hospital Course: 52-year-old male history of depression, alcohol cirrhosis complicated by ascites , varices and encephalopathy,recently taken off transplant list as patient continues to drink, status post rehabilitation over one year ago, hypertension, brought in by for fall in setting of alcohol intake today. Of note, I saw patient for exact same thing [address] was normal. Labs were baseline and patient was discharged in care of family after a period of observation in the ED were patient sobered up. Patient does not remember details of fall but does admit to drinking today. states her niece found patient lying on the floor an hour or 2 ago. Patient denying any pain at this time and is oriented 3. No GODWIN, dizziness, visual changes, focal weakness, CP, SOB, neck or back pain. As per , patient and family wants patient to go to a detox facility but not [place] [facility] [place]. States she has a facility in mind and that she contacted Dr Ashley who wants pt admitted to be medically tuned up prior to being transferred to a detox facility - Past Medical History Cardiovascular: Yes: HTN Gastrointestinal: Yes: Ascites Hepatobiliary: Yes: Cirrhosis (Alcohol induced, decompensated), Other (History of severe alcoholic hepatitis, hepatic encephalopathy) Musculoskeletal: Yes: Other (Cellulitis and tenosynovitis +/- osteomyelitis 3rd/ 4th digit of left hand) Dermatology: Yes: Cellulitis (of LE and of hand), Psoriasis - Smoking History Smoking history: Never smoked Have you smoked in the past 12 months: No - Alcohol/Substance Use Hx Alcohol Use: Yes History of Substance Use: reports: None - Social History ADL: Independent Occupation: disabled History of Recent Travel: No in hospital: completed librium protocol on b1 and folate went in hepatorenal syndrome got albumin, ocretoide , now reolved on lasix and aldactone cirrhosis on lactulose and rifaxmin on zoloft see problem list for details plan to go to [place] [facility] --NOT ACCEPTED--[facility] - Problems (1) Alcohol dependence with uncomplicated withdrawal Assessment/Plan: completed the librium protocol folate and B1 Code(s): F10.230 - ALCOHOL DEPENDENCE WITH WITHDRAWAL, UNCOMPLICATED (2) Hepatorenal syndrome Assessment/Plan: lasix and aldactone octreotide stopped repeat labs stable magnesium is ok on midodrine as well Code(s): K76.7 - HEPATORENAL SYNDROME (3) Alcoholic cirrhosis Assessment/Plan: rifaximin lacutlose to one BM per day lasix and K dur ammonia elevated but less than before on lactulose Qualifiers: Ascites presence: with ascites Qualified Code(s): K70.31 - Alcoholic cirrhosis of liver with ascites (4) Thrombocytopenia Assessment/Plan: if platelet count < 50K will stop heparin Code(s): D69.6 - THROMBOCYTOPENIA, UNSPECIFIED (5) Anemia Assessment/Plan: transfuse if h/h < 7.5 marcocytic anemia on folic acid Code(s): D64.9 - ANEMIA, UNSPECIFIED Qualifiers: Anemia type: unspecified type Qualified Code(s): D64.9 - Anemia, unspecified (6) Psoriasis Assessment/Plan: topical steroidal cream Code(s): L40.9 - PSORIASIS, UNSPECIFIED Condition: Fair Condition: Fair - Instructions Diet, Activity, Other Instructions: -Low Sodium diet -Repeat CBC, CMP, PT/INR in 1 week -Transfuse PRBC for H/H below 7.0/22.0 -Hold any anticoagulation for platelets below 50 -Furosemide 40 mg po daily -Add Spironolactone 100 mg po Daily -Add potassium Chloride 20 meq PO Daily -Continue Lactulose for BM 3-4 x day Disposition: TRANSFER ACUTE CARE/OTHER HOSP - Home Medications Comprehensive Discharge Medication List: Ambulatory Orders Thiamine HCl [Vitamin B1] 100 mg PO DAILY 12/21/16 Magnesium Oxide [Mag-Ox -] 400 mg PO BID tablet 06/02/17 Betamethasone Dipropionate [Diprosone 0.05% Cream -] 1 applic TP BID #60 gr Folic Acid - 1 mg PO DAILY #30 tablet 06/23/17 Furosemide [Lasix -] 40 mg PO DAILY #30 tablet 06/23/17 Lactulose (Oral Use) [Cephulac -] 20 gm PO DAILY #900 ml 06/23/17 Pantoprazole Sodium [Protonix -] 40 mg PO BID #60 tab 06/23/17 Rifaximin [Xifaxan -] 550 mg PO BID #60 tablet 06/23/17 Furosemide [Lasix -] 40 mg PO BID@0600,1400 tablet 07/20/17 Lactulose (Oral Use) [Cephulac -] 30 gm PO Q6HPO udc 07/20/17 Magnesium Oxide [Mag-Ox -] 400 mg PO BID tablet 07/20/17 Midodrine HCl [Proamatine -] 5 mg PO TID-MID tablet 07/20/17 Spironolactone [Aldactone -] 50 mg PO DAILY tablet 07/20/17 Triamcinolone 0.5% Ointment [Aristocort 0.5% Ointment -] 1 applic TP BID tube 07/20/17
[2017-07-22 08:43] VITALS: BP 138/67; PULSE 88; TEMP 98.1
[2017-07-22] MEDS ORDERED: PT OWN MED DRAWER 7, Y5N ONE (09:02)
[2017-07-22] MEDS: PANTOPRAZOLE 40 MG TABLET (FP) PO SCH (10:26)
[2017-07-22] MEDS: MAGNESIUM OXIDE 400 MG TABLET (FP) PO SCH (10:26)
[2017-07-22] MEDS: SPIRONOLACTONE 25 MG TABLET (FP) PO SCH (10:26)
[2017-07-22] MEDS: RIFAXIMIN 550 MG TABLET (UD) PO SCH (10:26)
[2017-07-22] MEDS: PRENATAL VITAMINS W/ FOLIC ACID TABLET (FP) PO SCH (10:26)
[2017-07-22] MEDS: SERTRALINE HCL 25 MG TABLET (FP) PO SCH (10:26)
[2017-07-22] MEDS: TRIAMCINOLONE ACET 0.5% OINT 15 GM TUBE TP SCH (10:26)
[2017-07-22] MEDS: SILVER SULFADIAZINE 1% TOP CREAM 50 GM JAR TP SCH (10:27)
[2017-07-22] MEDS: MIDODRINE HCL 5 MG TABLET PO SCH (10:27)
== END 2017-07-22 11:05 | disposition short-term general hospital (02) | DRG 896 ==
LOC: JER 14:38 → JERBED 15:54 → J6S 07-06 00:43 → OBSVTOIN 07-07 14:31
PROVIDERS: ADMIT Family Medicine; ATTEND Family Medicine
PROC: HZ2ZZZZ Detoxification Services for Substance Abuse Treatment (ICD-10-PCS; principal; 2017-07-07)
PROC: 30233N1 Transfusion of Nonautologous Red Blood Cells into Peripheral Vein, Percutaneous Approach (ICD-10-PCS; 2017-07-12)
DX: F10.230 Alcohol dependence with withdrawal, uncomplicated (principal); K76.7 Hepatorenal syndrome; L03.114 Cellulitis of left upper limb; R17 Unspecified jaundice; I85.00 Esophageal varices without bleeding; D68.8 Other specified coagulation defects; N17.9 Acute kidney failure, unspecified; K70.31 Alcoholic cirrhosis of liver with ascites; D64.9 Anemia, unspecified; L40.8 Other psoriasis; L03.012 Cellulitis of left finger; K74.69 Other cirrhosis of liver; E86.0 Dehydration; E66.8 Other obesity; Z68.32 Body mass index [BMI] 32.0-32.9, adult; F10.920 Alcohol use, unspecified with intoxication, uncomplicated; K72.90 Hepatic failure, unspecified without coma; D69.6 Thrombocytopenia, unspecified; F41.8 Other specified anxiety disorders; S09.8XXA Other specified injuries of head, initial encounter; X58.XXXA Exposure to other specified factors, initial encounter; Y93.89 Activity, other specified; Y92.89 Other specified places as the place of occurrence of the external cause; E88.09 Other disorders of plasma-protein metabolism, not elsewhere classified
CPT/HCPCS: 36415; 36430; 36511; 70450-TC; 71010-TC; 80048; 80053; 80307; 81003; 81015; 82140; 82248; 82550; 82570; 83735; 84100; 84300; 84484; 84540; 85025; 85027; 85610; 85730; 86850; 86900; 86901; 86922; 93005; 93010; 97116-GP; 97161-GP; 99282-25; G0378; J1644; P9038; P9047; P9058

== ENCOUNTER 2017-07-22 11:31 | Inpatient (IN) | payer BC, OTHER ==
[2017-07-22 14:15] VITALS: BMI 31.3
--- NOTE | 2017-07-22 15:06 | HP ---
Admission [facility] Chief Complaint: requesting inpatient rehab from alcohol after being medically detoxed at [facility] Allergies/Adverse Reactions: Allergies Allergy/AdvReac Type Severity Reaction Status Date / Time No Known Allergies Allergy Verified 07/22/17 13:49 History of Present Illness: 52 yo m with h/o chronic alcoholism, several recent hosptializations at [facility] after falling, hepatic failure, hepatic encephalopaty, jermain when he relapses to drinking. Patient was receiving oxycodone for pain after fall at home, completed detox at [facility]. now sober. Developed herberth, found to have ascites, splenomegaly with suspected portal vein thrombosis, was unable to be placed in private facility so agreed to come to [facility]. Renal function appears to be improving. Exam Limitations: No Limitations - Ebola screening Have you traveled outside of the country in the last 21 days: No (N) Have you had contact with anyone from an Ebola affected area: No Have you been sick,other than usual withdrawal symptoms: No Do you have a fever: No - Review of Systems Constitutional: No Symptoms Reported EENT: reports: No Symptoms Reported Respiratory: reports: No Symptoms reported Cardiac: reports: No Symptoms Reported GI: reports: Abdominal Distended, Poor Appetite : reports: No Symptoms Reported Musculoskeletal: reports: Muscle Pain (from multiple falls) Endocrine: reports: No Symptoms Reported Hematology: reports: Easy Bruising Psychiatric: reports: No Sypmtoms Reported, Judgement Intact, Mood/Affect Appropiate, Orientated x3, Anxious, Depressed Other Systems: Reviewed and Negative Patient History - Patient Medical History Hx Anemia: Yes Hx Asthma: No Hx Chronic Obstructive Pulmonary Disease (COPD): No Hx Cancer: No Hx Cardiac Disorders: No Hx Congestive Heart Failure: No Hx Hypertension: Yes Hx Hypercholesterolemia: No Hx Pacemaker: No HX Cerebrovascular Accident: No Hx Seizures: No Hx Dementia: No Hx Diabetes: No Hx Gastrointestinal Disorders: No Hx Liver Disease: Yes (cirrhosis, acites) Hx Genitourinary Disorders: Yes (? esrd) Hx Sexually Transmitted Disorders: No Hx Renal Disease (ESRD): No Hx Thyroid Disease: Yes Hx Human Immunodeficiency Virus (HIV): No Hx Hepatitis C: No Hx Depression: Yes Hx Suicide Attempt: No (no si at this time) Hx Bipolar Disorder: No Hx Schizophrenia: No - Patient Surgical History Past Surgical History: No Anesthesia Reaction: No - PPD History Previous Implant?: No Implanted On Prior R Admission?: No PPD to be Administered?: Yes - Reproductive History Patient is a Female of Child Bearing Age (11 -55 yrs old): No Patient : No - Smoking Cessation Smoking history: Never smoked Have you smoked in the past 12 months: No Hx Chewing Tobacco Use: No Initiated information on smoking cessation: No 'Breaking Loose' booklet given: 07/22/17 - Substance & Tx. History Hx Alcohol Use: Yes Hx Substance Use: No Substance Use Type: Alcohol Hx Substance Use Treatment: Yes ([facility] in August) - Substances Abused Alcohol Route: Oral Frequency: Daily Amount used: 1 pint vodka Age of first use: 17 Date of Last Use: 07/07/17 Family Disease History - Family Disease History Family Disease History: Other: Grandparent Other Family History: uncle alcoholism Admission Physical Exam [facility] - Vital Signs Vital Signs: Vital Signs - 24 hr 07/22/17 14:08 Temperature 97.9 F Pulse Rate 103 H Respiratory 20 Rate Blood Pressure 146/84 - Physical General Appearance: Yes: No Apparent Distress, Nourished, Appropriately Dressed , Thin, Anxious HEENTM: Yes: Within Normal Limits, EOMI, Hearing grossly Normal, Normal ENT Inspection, Normocephalic, Normal Voice, DHEERAJ, Pharynx Normal, Tm's normal Respiratory: Yes: Within Normal Limits, Chest Non-Tender, Lungs Clear, Normal Breath Sounds, No Respiratory Distress, No Accessory Muscle Use Neck: Yes: Within Normal Limits, No masses,lesions,Nodules, Supple, Trachea in good position Breast: Yes: Breast Exam Deferred Cardiology: Yes: Within Normal Limits, Regular Rhythm, Regular Rate, S1, S2 Abdominal: Yes: Normal Bowel Sounds, Non Tender, Soft, Protuberent, Distended, Spleenomegaly, Other (ascites) Genitourinary: Yes: Within Normal Limits Back: Yes: Within Normal Limits, Normal Inspection Musculoskeletal: Yes: Within Normal Limits, full range of Motion, Gait Steady, Pelvis Stable Extremities: Yes: Within Normal Limits, Normal Capillary Refill, Normal Inspection, Normal Range of Motion, Non-Tender Neurological: Yes: oracle database administrator II-XII NML intact, Fully Oriented, Motor Strength 5/5, Normal Response, Depressed Affect Integumentary: Yes: Within Normal Limits, Normal Color, Dry, Warm Lymphatic: Yes: Within Normal Limits - Addiitonal Findings: patient is not in withdrawal, appears weak and sedated most likely from hepatic encephalopathy, will monitor progress in rehab, repeat ammonia level - Diagnostic (1) Alcohol dependence Current Visit: Yes Status: Acute (2) Anemia Current Visit: No Status: Acute Qualifiers: Anemia type: unspecified type Qualified Code(s): D64.9 - Anemia, unspecified (3) Chest wall trauma Current Visit: No Status: Acute Qualifiers: Encounter type: initial encounter Qualified Code(s): S29.9XXA - Unspecified injury of thorax, initial encounter (4) Hepatic encephalopathy Current Visit: No Status: Acute (5) Hypomagnesemia Current Visit: No Status: Acute (6) Liver cirrhosis Current Visit: No Status: Acute Qualifiers: Hepatic cirrhosis type: alcoholic cirrhosis Ascites presence: with ascites Qualified Code(s): K70.31 - Alcoholic cirrhosis of liver with ascites (7) Psoriasis Current Visit: No Status: Acute (8) Portal vein thrombosis Current Visit: Yes Status: Acute (9) Splenomegaly Current Visit: Yes Status: Acute Cleared for Admission S - Detox or Rehab Claeared for Rehab Admission: Yes [facility] Breath Alcohol Content Breath Alcohol Content: 0 Urine Drug Screen - Results Drug Screen Negative: No Urine Drug Screen Results: BZO-Benzodiazepines, OXY-Oxycodone Inpatient Rehab Admission - Initial Determination Are CD services needed?: Yes Free of communicable disease: Yes Not in need of hospitalization: Yes - Rehab Admission Criteria Previous failed treatment: Yes Comorbidities: Yes Lacks judgement: Yes Patient is meeting Inpatient Rehab admission criteria:: Yes
[2017-07-22] MEDS ORDERED: MAGNESIUM CITRATE 300 ML BOTTLE PO PRN (15:16)
[2017-07-22] MEDS ORDERED: ACETAMINOPHEN 325 MG TABLET (FP) PO PRN (15:16)
[2017-07-22] MEDS ORDERED: MENTHOL/PHENOL 1 EACH UD MM PRN (15:16)
[2017-07-22] MEDS ORDERED: IBUPROFEN 400 MG TABLET (FP) PO PRN (15:16)
[2017-07-22] MEDS ORDERED: MAG HYDROX/AL HYDROX/SIMETH 30 ML UNIT-DOSE CUP PO PRN (15:16)
[2017-07-22] MEDS ORDERED: P-EPHED 60MG/TRIPROLIDI 2.5MG TABLET PO PRN (15:16)
[2017-07-22] MEDS ORDERED: LOPERAMIDE HCL 2 MG CAPSULE PO PRN (15:16)
[2017-07-22] MEDS ORDERED: MAGNESIUM HYDROX 2400MG/30ML ORAL SUSPENSION 30 ML CUP PO PRN (15:16)
[2017-07-22] MEDS ORDERED: guaiFENesin/D-METHORPHAN HB 10 ML UNIT-DOSE CUPS PO PRN (15:16)
[2017-07-22] MEDS ORDERED: TUBERCULIN PPD 5 TU/0.1ML VIAL ID ONE (20:22)
[2017-07-22] MEDS: LIDOCAINE 5% TOPICAL PATCH TP SCH (21:09)
[2017-07-22] MEDS: MAGNESIUM OXIDE 400 MG TABLET (FP) PO SCH (21:12)
[2017-07-22] MEDS: RIFAXIMIN 550 MG TABLET (UD) PO SCH (21:13)
[2017-07-22] MEDS: MIDODRINE HCL 5 MG TABLET PO SCH (21:15)
[2017-07-22] MEDS: LACTULOSE 20 GM/30 ML UDC (FOR ORAL USE ONLY) PO SCH ×2 (21:16→23:59)
[2017-07-22] MEDS: THIAMINE HCL 100 MG TABLET (FP) PO SCH (21:17)
[2017-07-22] MEDS: LIDOCAINE PATCH REMOVAL MC SCH (21:20)
[2017-07-22] MEDS: TRIAMCINOLONE ACET 0.5% OINT 15 GM TUBE TP SCH (21:20)
[2017-07-22] MEDS ORDERED: BETAMETHASONE DIPR 0.05% CREAM 15 GM TUBE TP SCH (22:00)
[2017-07-22 23:36] LABS: URINE APPEARANCE SLCLOUDY; URINE BILIRUBIN NEGATIVE (NEGATIVE); URINE BLOOD 3+ (NEGATIVE); URINE COLOR AMBER; URINE GLUCOSE (UA) NEGATIVE (NEGATIVE); URINE KETONE NEGATIVE (NEGATIVE); URINE LEUK ESTERASE NEGATIVE (NEGATIVE); URINE NITRITE NEGATIVE (NEGATIVE); URINE PROTEIN NEGATIVE (NEGATIVE); URINE UROBILINOGEN NEGATIVE mg/dL (0.2-1.0)
[2017-07-23 01:38] LABS: URINE HYALINE CAST 33 /lpf; URINE MUCUS RARE; URINE RBC 20 /hpf (0-3); URINE WBC 2 /hpf (3-5)
[2017-07-23] MEDS: FUROSEMIDE 40 MG TABLET (FP) PO SCH ×2 (07:03→15:11)
[2017-07-23] MEDS: LACTULOSE 20 GM/30 ML UDC (FOR ORAL USE ONLY) PO SCH ×3 (07:03→17:31)
[2017-07-23 10:54] LABS: URINE LEUK ESTERASE Negative (NEGATIVE)
[2017-07-23] MEDS: RIFAXIMIN 550 MG TABLET (UD) PO SCH ×2 (10:57→21:55)
[2017-07-23] MEDS: MIDODRINE HCL 5 MG TABLET PO SCH ×3 (10:57→17:30)
[2017-07-23] MEDS: SPIRONOLACTONE 25 MG TABLET (FP) PO SCH (10:57)
[2017-07-23] MEDS: MAGNESIUM OXIDE 400 MG TABLET (FP) PO SCH ×2 (10:57→21:55)
[2017-07-23] MEDS: TRIAMCINOLONE ACET 0.5% OINT 15 GM TUBE TP SCH ×2 (10:57→21:55)
[2017-07-23] MEDS: PRENATAL VITAMINS W/ FOLIC ACID TABLET (FP) PO SCH (10:58)
[2017-07-23] MEDS: LIDOCAINE 5% TOPICAL PATCH TP SCH (10:58)
--- NOTE | 2017-07-23 11:12 | HP ---
Psychiatrist Admission - Data Date of interview: 07/23/17 Admission source: [facility] Identifying data: This is the first 5N inpatient rehabilitation admission for this 52 year old male father of 2, he is domiciled and currently unemployed. Medical History: Liver Cirrhosis, Hepatic encephalopathy, Hypomagnesemia,chest wall trauma, portal vein thrombosis, splenomegaly, anemia, HTN, Arthritis, psoriasis. Psychiatric History: Patient denies history of psychiatric treatment. Physical/Sexual Abuse/Trauma History: Patient denies Vital Signs: Vital Signs - 24 hr 07/22/17 07/22/17 07/23/17 14:08 17:47 00:55 Temperature 97.9 F 98.4 F Pulse Rate 103 H 100 H Respiratory 20 18 18 Rate Blood Pressure 146/84 165/87 07/23/17 07/23/17 03:47 07:32 Temperature Pulse Rate Respiratory 18 18 Rate Blood Pressure Allergies/Adverse Reactions: Allergies Allergy/AdvReac Type Severity Reaction Status Date / Time No Known Allergies Allergy Verified 07/22/17 13:49 Date of last physical exam: 07/22/17 Concur with the findings of this exam: Yes - Substance Abuse/Tx History Hx Alcohol Use: Yes (vodka 1 pint daily) Hx Substance Use: No Substance Use Type: Alcohol Hx Substance Use Treatment: Yes ([facility]) Mental Status Exam - Mental Status Exam Alert and Oriented to: Time, Place, Person Cognitive Function: Grossly Intact Patient Appearance: Unkempt Affect: Appropriate, Mood Congruent Patient Behavior: Cooperative Speech Pattern: Appropriate Voice Loudness: Normal Thought Process: Goal Oriented Thought Disorder: Not Present Hallucinations: Denies Suicidal Ideation: Denies Homicidal Ideation: Denies Insight/Judgement: Fair Sleep: Fair Appetite: Fair Muscle strength/Tone: Normal Gait/Station: Normal Psychiatric Findings - Problem List ([place] 1, 2,3) (1) Alcohol dependence Current Visit: Yes Status: Acute - Initial Treatment Plan Initial Treatment Plan: will monitor progress as needed.
--- NOTE | 2017-07-23 13:55 | EKG ---
Test Reason : Blood Pressure : / mmHG Vent. Rate : 084 BPM Atrial Rate : 084 BPM P-R Int : 162 ms QRS Dur : 094 ms QT Int : 424 ms P-R-T Axes : 050 004 033 degrees QTc Int : 501 ms NORMAL SINUS RHYTHM CANNOT RULE OUT INFERIOR INFARCT , AGE UNDETERMINED PROLONGED QT ABNORMAL ECG Confirmed by JESSICA LE MD ([id number]) on 07/23/2017 1:55:30 PM Referred By: Bruna PICHARDO Confirmed By:JESSICA LE MD
--- NOTE | 2017-07-23 13:58 | EKG ---
Test Reason : Blood Pressure : / mmHG Vent. Rate : 097 BPM Atrial Rate : 097 BPM P-R Int : 172 ms QRS Dur : 092 ms QT Int : 408 ms P-R-T Axes : 071 063 069 degrees QTc Int : 518 ms NORMAL SINUS RHYTHM PROLONGED QT ABNORMAL ECG Confirmed by JESSICA LE MD ([id number]) on 07/23/2017 1:58:33 PM Referred By: Confirmed By:JESSICA LE MD
[2017-07-23] MEDS ORDERED: PT OWN MED DRAWER 7, Y5N ONE (15:07)
[2017-07-23] MEDS: CYCLOBENZAPRINE HCL 10 MG TABLET (FP) PO SCH ×2 (15:11→21:55)
[2017-07-23] MEDS: THIAMINE HCL 100 MG TABLET (FP) PO SCH (21:55)
[2017-07-23] MEDS: LIDOCAINE PATCH REMOVAL MC SCH (21:56)
[2017-07-24] MEDS: LACTULOSE 20 GM/30 ML UDC (FOR ORAL USE ONLY) PO SCH ×5 (00:50→17:35)
[2017-07-24] MEDS: CYCLOBENZAPRINE HCL 10 MG TABLET (FP) PO SCH (07:20)
[2017-07-24] MEDS: FUROSEMIDE 40 MG TABLET (FP) PO SCH ×2 (07:22→15:01)
[2017-07-24] MEDS: SPIRONOLACTONE 25 MG TABLET (FP) PO SCH (10:58)
[2017-07-24] MEDS: MIDODRINE HCL 5 MG TABLET PO SCH ×3 (10:59→17:35)
[2017-07-24] MEDS: PRENATAL VITAMINS W/ FOLIC ACID TABLET (FP) PO SCH (10:59)
[2017-07-24] MEDS: RIFAXIMIN 550 MG TABLET (UD) PO SCH ×2 (11:00→21:42)
[2017-07-24] MEDS: MAGNESIUM OXIDE 400 MG TABLET (FP) PO SCH ×2 (11:00→21:43)
[2017-07-24] MEDS: LIDOCAINE 5% TOPICAL PATCH TP SCH (11:00)
[2017-07-24] MEDS: TRIAMCINOLONE ACET 0.5% OINT 15 GM TUBE TP SCH ×2 (11:01→21:43)
[2017-07-24 11:54] VITALS: TEMP 98.2
[2017-07-24] MEDS: FERROUS SO4 325 MG TABLET (FP) PO SCH ×2 (12:15→17:34)
[2017-07-24] MEDS ORDERED: CYCLOBENZAPRINE HCL 10 MG TABLET (FP) PO SCH (14:00)
[2017-07-24] MEDS: CYCLOBENZAPRINE HCL 5 MG TABLET PO SCH ×2 (15:01→21:43)
[2017-07-24 15:26] VITALS: BP 123/64; PULSE 84
[2017-07-24] MEDS: THIAMINE HCL 100 MG TABLET (FP) PO SCH (21:42)
[2017-07-24] MEDS: LIDOCAINE PATCH REMOVAL MC SCH (21:43)
[2017-07-24] MEDS ORDERED: hydrOXYzine PAMOATE 50 MG CAPSULE (FP) PO PRN (22:52)
[2017-07-25] MEDS: LACTULOSE 20 GM/30 ML UDC (FOR ORAL USE ONLY) PO SCH ×2 (00:10→07:07)
--- NOTE | 2017-07-25 01:39 | PN ---
[facility] Progress Note Note: 52 years old male patient with complaint of severe abdominal pain was seen and evaluated at bedside. Patient has medical history of HTN, ascites, anemia, hepatic failure and hepatic encephalopathy, Liver Cirrhosis, Hepatic encephalopathy, Hypomagnesemia,chest wall trauma, portal vein thrombosis, splenomegaly, arthritis and psoriasis. He rates abdominal pain at 10/10 and he reports severe discomfort at this time. Patient is to be transferred to ER for further evaluation. Endorsed to Dr. Colunga
[2017-07-25] MEDS: CYCLOBENZAPRINE HCL 5 MG TABLET PO SCH (07:07)
[2017-07-25] MEDS: FUROSEMIDE 40 MG TABLET (FP) PO SCH (07:08)
[2017-07-25] MEDS: FERROUS SO4 325 MG TABLET (FP) PO SCH (07:08)
--- NOTE | 2017-07-25 09:49 | PN ---
[facility] Progress Note Note: Pt. was seen on 07/24/17 because he c/o of feeling week. Pt. has multiple medical problems which include Cirrhosis of the liver with ascites. pt. came from [facility] med/surg Vital Signs - 24 hr 07/24/17 07/24/17 07/25/17 11:53 15:00 00:30 Temperature 98.2 F Pulse Rate 87 84 Respiratory 18 18 Rate Blood Pressure 122/62 123/64 Laboratory Tests 07/22/17 07/22/17 07/23/17 15:15 20:14 08:30 Ammonia 35.21 H Urine Color Elly Urine Appearance Slcloudy Urine pH 5.0 Ur Specific [place] 1.013 Urine Protein Negative Urine Glucose (UA) Negative Urine Ketones Negative Urine Blood 3+ H Urine Nitrite Negative Urine Bilirubin Negative Urine Urobilinogen Negative Ur Leukocyte Esterase Negative Urine WBC (Auto) 2 Urine RBC (Auto) 20 Ur Epithelial Cells Rare Hyaline Casts 33 Urine Mucus Rare RPR Titer Nonreactive Repeat labs in am, Start ambulating pt. with assistance. Pt will need to go to Physical therapy rehab if we are unable to help him ambulate
--- NOTE | 2017-07-27 16:30 | PN ---
[facility] Progress Note Note: Called by nurse, patient complaining of recurring chronic back pain, will start flexeril atc and lidodrm patch, reassess in am for efficacy.
== END 2017-07-25 08:00 | disposition short-term general hospital (02) | DRG 895 ==
LOC: YASAS 11:31 → Y5N 16:01
PROVIDERS: ADMIT Psychiatry & Neurology Psychiatry; ATTEND Psychiatry & Neurology Psychiatry
PROC: HZ42ZZZ Group Counseling for Substance Abuse Treatment, Cognitive-Behavioral (ICD-10-PCS; principal; 2017-07-22)
DX: F19.20 Other psychoactive substance dependence, uncomplicated (principal); I81 Portal vein thrombosis; D64.9 Anemia, unspecified; K72.90 Hepatic failure, unspecified without coma; E83.42 Hypomagnesemia; K70.31 Alcoholic cirrhosis of liver with ascites; L40.9 Psoriasis, unspecified; R16.1 Splenomegaly, not elsewhere classified; R10.9 Unspecified abdominal pain; I10 Essential (primary) hypertension; M19.90 Unspecified osteoarthritis, unspecified site
CPT/HCPCS: 36415; 81003; 81015; 82140; 86593; 93005; 93010

== ENCOUNTER 2017-07-25 03:06 | Inpatient (IN) | payer BC ==
--- NOTE | 2017-07-25 03:20 | PDOC ---
History of Present Illness - General Stated Complaint: ABD PAIN Time Seen by Provider: 07/25/17 03:19 History Source: Patient Exam Limitations: No Limitations - History of Present Illness Travel History: No Initial Comments: 07/25/17 05:40 52-year-old male biba from [facility]hab [facility] for detox. Pt has a history of alcohol cirrhosis/ascites,encephalopathy, varices and depression presents to the emergency department c/o right upper quadrant abdominal discomfort. Pain is described as 4/10 dull intermittent discomfort which intermittently radiates to his side since last evening. The pain is exacerbated on touch and there are no alleviating factors. Patient was transplant list was recently due to his persistent drinking/alcohol. Pt's last drink x 2 weeks ago. Timing/Duration: reports: intermittent Abdominal Pain Onset Location: reports: RUQ Past History - Past Medical History Allergies/Adverse Reactions: Allergies Allergy/AdvReac Type Severity Reaction Status Date / Time No Known Allergies Allergy Verified 07/22/17 13:49 Home Medications: Ambulatory Orders Thiamine HCl [Vitamin B1] 100 mg PO DAILY 12/21/16 Betamethasone Dipropionate [Diprosone 0.05% Cream -] 1 applic TP BID #60 gr Folic Acid - 1 mg PO DAILY #30 tablet 06/23/17 Pantoprazole Sodium [Protonix -] 40 mg PO BID #60 tab 06/23/17 Rifaximin [Xifaxan -] 550 mg PO BID #60 tablet 06/23/17 Furosemide [Lasix -] 40 mg PO BID@0600,1400 tablet 07/20/17 Lactulose (Oral Use) [Cephulac -] 30 gm PO Q6HPO udc 07/20/17 Magnesium Oxide [Mag-Ox -] 400 mg PO BID tablet 07/20/17 Midodrine HCl [Proamatine -] 5 mg PO TID-MID tablet 07/20/17 Spironolactone [Aldactone -] 50 mg PO DAILY tablet 07/20/17 Triamcinolone 0.5% Ointment [Aristocort 0.5% Ointment -] 1 applic TP BID tube 07/20/17 Anemia: Yes Asthma: No Cancer: No Cardiac Disorders: Yes CVA: No COPD: No CHF: No DVT: No Dementia: No Diabetes: No GI Disorders: Yes Disorders: No HTN: Yes Hypercholesterolemia: No Kidney Stones: No Liver Disease: Yes (cirrhosis, acites) Psychiatric Problems: Yes (depression) Seizures: No Thyroid Disease: Yes - Reproductive History Testicular Surgery: No - Suicide/Smoking/Psychosocial Hx Smoking History: Never smoked Have you smoked in the past 12 months: No 'Breaking Loose' booklet given: 07/22/17 Hx Alcohol Use: Yes (vodka 1 pint daily) Drug/Substance Use Hx: No Substance Use Type: Alcohol Hx Substance Use Treatment: Yes ([facility]) Abd/GI Specific PMHX - Complaint Specific PMHX Hepatitis: No Pancreatitis: No Review of Systems - Review of Systems Able to Perform ROS?: Yes Comments:: 07/25/17 03:25 CONSTITUTIONAL: Absent: fever, chills, diaphoresis, generalized weakness, malaise, loss of appetite HEENT: Absent: rhinorrhea, nasal congestion, throat pain, throat swelling, difficulty swallowing, mouth swelling, ear pain, eye pain, visual Changes CARDIOVASCULAR: Absent: chest pain, loss of consciousness, palpitations, irregular heart rate, peripheral edema RESPIRATORY: Absent: cough, shortness of breath, dyspnea with exertion, orthopnea, wheezing, stridor, hemoptysis GASTROINTESTINAL: +n/v, RUQ pain Absent: abdominal distension, diarrhea, constipation, melena, hematochezia GENITOURINARY: Absent: dysuria, frequency, urgency, hesitancy, hematuria, flank pain, genital pain MUSCULOSKELETAL: Absent: myalgia, arthralgia, joint swelling SKIN: Absent: rash, itching, pallor HEMATOLOGIC/IMMUNOLOGIC: Absent: easy bleeding, easy bruising, lymphadenopathy, frequent infections ENDOCRINE: Absent: unexplained weight gain, unexplained weight loss, heat intolerance, cold intolerance NEUROLOGIC: Absent: headache, focal weakness or paresthesias, dizziness, unsteady gait, seizure, mental status changes, bladder or bowel incontinence Is the patient limited [place] Citizen proficient: No *Physical Exam - Physical Exam Comments: 07/25/17 03:25 GENERAL: Well developed, well nourished. Awake and alert. No acute distress. HEENT: Normocephalic, atraumatic. PERRLA, EOMI. No conjunctival pallor. Sclera are non- icteric. Moist mucous membranes. Oropharynx is clear. NECK: Supple. Full ROM. No JVD. Carotid pulses 2+ and symmetric, without bruits. No thyromegaly. No lymphadenopathy. CARDIOVASCULAR: Regular rate and rhythm. No murmurs, rubs, or gallops. Distal pulses are 2+ and symmetric. PULMONARY: No evidence of respiratory distress. Lungs clear to auscultation bilaterally. No wheezing, rales or rhonchi. ABDOMINAL: +RUQ pain Soft. Non-distended. No rebound or guarding. No organomegaly. Normoactive bowel sounds. MUSCULOSKELETAL Normal range of motion at all joints. No bony deformities or tenderness. No CVA tenderness. EXTREMITIES: No cyanosis. No clubbing. No edema. No calf tenderness. SKIN: Warm and dry. Normal capillary refill. No rashes. No jaundice. NEUROLOGICAL: Alert, awake, appropriate. Cranial nerves 2-12 intact. No deficits to light touch and temperature in face, upper extremities and lower extremities. No motor deficits in the in face, upper extremities and lower extremities. Normoreflexic in the upper and lower extremities. Normal speech. Toes are down- going bilaterally. Gait is normal without ataxia. PSYCHIATRIC: Cooperative. Good eye contact. Appropriate mood and affect. ED Treatment Course - LABORATORY CBC & Chemistry Diagram: 07/25/17 03:20 07/25/17 03:20 Progress Note - Progress Note Progress Note: 0551rhs: Called Dr. Ashley/ Hospitalist covering until 0800hrs 0553hrs: Called hospitalist 0603hrs: Spoke to Janna MOORE to be admitted to Dr. Patel *DC/Admit/Observation/Transfer Diagnosis at time of Disposition: Jaundice, Alcohol abuse Pancreatitis Qualifiers: Chronicity: acute Pancreatitis type: unspecified pancreatitis type Acute pancreatitis complication: unspecified Qualified Code(s): K85.90 - Acute pancreatitis without necrosis or infection, unspecified - Discharge Dispostion Condition at time of disposition: Guarded Admit: Yes - Referrals Referrals: Prakash Ashley MD [Primary Care Provider] - - Patient Instructions - Post Discharge Activity
[2017-07-25] MEDS ORDERED: SODIUM CHLORIDE 1,000 ML IV STA (03:24)
[2017-07-25] MEDS ORDERED: ONDANSETRON 4 MG/2 ML VIAL IVPUSH ONE (03:27)
[2017-07-25 04:28] LABS: BASO # 0.1 # (0.1-1); BASO % 0.9 % (0-2.0); EOS # 0.1 # (0-4.5); EOS % 1.9 % (0-4.5); MCH 33.7 pg (25.7-33.7); MCHC 33.9 g/dl (32.0-35.9); MEAN CELL VOLUME 99.4 fl (80-96); MEAN PLT VOLUME 8.3 fl (7.5-11.1); MONO # 0.7 # (3.8-10.2); NEUT # 4.4 # (42.8-82.8); NEUT % 70.4 % (42.8-82.8); PLATELET COUNT 100 K/MM3 (134-434); RDW 17.3 % (11.9-15.9); WHITE BLOOD COUNT 6.2 K/mm3 (4.0-10.0)
[2017-07-25] MEDS ORDERED: ONDANSETRON 4 MG/2 ML VIAL ONE (04:31)
[2017-07-25 05:27] LABS: CREATININE 1.3 mg/dL (0.7-1.3); GLUCOSE,RANDOM 129 mg/dL (74-106)
[2017-07-25 05:28] LABS: ALBUMIN 2.8 g/dl (3.4-5.0); ALK PHOS 119 U/L (45-117); ANION GAP 11 (8-16); BILIRUBIN,TOTAL 6.6 mg/dL (0.2-1.0); CALCIUM 8.7 mg/dL (8.5-10.1); CO2 27 mmol/L (21-32); SGOT/AST 43 U/L (15-37); SGPT/ALT 11 U/L (12-78); TOT PROT 7.8 g/dl (6.4-8.2)
[2017-07-25 05:29] LABS: AMYLASE 112 U/L (25-115)
--- NOTE | 2017-07-25 07:36 | HP ---
Admitting History and Physical - Admission History Source: Patient Limitations to Obtaining History: No Limitations - Past Medical History Cardiovascular: Yes: HTN Gastrointestinal: Yes: Ascites Hepatobiliary: Yes: Cirrhosis (Alcohol induced, decompensated), Other (History of severe alcoholic hepatitis, hepatic encephalopathy) Psych: Yes: Depression Musculoskeletal: Yes: Other (Cellulitis and tenosynovitis +/- osteomyelitis 3rd/ 4th digit of left hand) Dermatology: Yes: Cellulitis (of LE and of hand), Psoriasis - Smoking History Smoking history: Never smoked Have you smoked in the past 12 months: No - Alcohol/Substance Use Hx Alcohol Use: Yes (vodka 1 pint daily) History of Substance Use: reports: None - Social History ADL: Independent Occupation: disabled History of Recent Travel: No Home Medications - Allergies Allergies/Adverse Reactions: Allergies Allergy/AdvReac Type Severity Reaction Status Date / Time No Known Allergies Allergy Verified 07/22/17 13:49 - Home Medications Home Medications: Ambulatory Orders Thiamine HCl [Vitamin B1] 100 mg PO DAILY 12/21/16 Betamethasone Dipropionate [Diprosone 0.05% Cream -] 1 applic TP BID #60 gr Folic Acid - 1 mg PO DAILY #30 tablet 06/23/17 Pantoprazole Sodium [Protonix -] 40 mg PO BID #60 tab 06/23/17 Rifaximin [Xifaxan -] 550 mg PO BID #60 tablet 06/23/17 Furosemide [Lasix -] 40 mg PO BID@0600,1400 tablet 07/20/17 Lactulose (Oral Use) [Cephulac -] 30 gm PO Q6HPO udc 07/20/17 Magnesium Oxide [Mag-Ox -] 400 mg PO BID tablet 07/20/17 Midodrine HCl [Proamatine -] 5 mg PO TID-MID tablet 07/20/17 Spironolactone [Aldactone -] 50 mg PO DAILY tablet 07/20/17 Triamcinolone 0.5% Ointment [Aristocort 0.5% Ointment -] 1 applic TP BID tube 07/20/17 Family Disease History - Family Disease History Family Disease History: Other: Grandparent Review of Systems - Review of Systems Constitutional: reports: No Symptoms Eyes: reports: No Symptoms HENT: reports: No Symptoms Neck: reports: No Symptoms Cardiovascular: reports: No Symptoms Respiratory: reports: No Symptoms Gastrointestinal: reports: Abdominal Pain Physical Examination Vital Signs: Vital Signs Temperature 98.3 F 07/25/17 03:53 Pulse Rate 82 07/25/17 03:53 Respiratory Rate 18 07/25/17 03:53 Blood Pressure 138/65 07/25/17 03:53 O2 Sat by Pulse Oximetry (%) 95 07/25/17 03:53 Constitutional: Yes: Mild Distress Eyes: Yes: WNL HENT: Yes: WNL Neck: Yes: WNL, Supple, Trachea Midline Cardiovascular: Yes: WNL, Regular Rate and Rhythm Respiratory: Yes: WNL, Regular, CTA Bilaterally Gastrointestinal: Yes: Soft, Abdomen, Obese, Ascites ...Rectal Exam: Yes: Deferred Labs: CBC, BMP 07/25/17 03:20 07/25/17 03:20 Imaging - Results Ultrasound: Pending Problem List - Problems (1) Alcohol abuse Assessment/Plan: patient was in rehab last alcoholic beverage was 2 wks ago no signs of withdrawal Code(s): F10.10 - ALCOHOL ABUSE, UNCOMPLICATED (2) Jaundice Assessment/Plan: chronic 2/2 Alcoholic liver cirrhosis patient is asymptomatic, no itching Code(s): R17 - UNSPECIFIED JAUNDICE (3) Pancreatitis Assessment/Plan: patient presented with abdominal pain that is radiating to the back with elevated lipase plan GI consult admit the patient to the floor IVF hydration PO as tolerated pain control Code(s): K85.90 - ACUTE PANCREATITIS WITHOUT NECROSIS OR INFECTION, UNSP Qualifiers: Chronicity: acute Pancreatitis type: unspecified pancreatitis type Acute pancreatitis complication: unspecified Qualified Code(s): K85.90 - Acute pancreatitis without necrosis or infection, unspecified (4) Anemia Assessment/Plan: chronic anemia 2/2 to liver disease associated with macrocytosis obtain b12 level obtain folic acid level supplement accordingly Code(s): D64.9 - ANEMIA, UNSPECIFIED Qualifiers: Anemia type: unspecified type Qualified Code(s): D64.9 - Anemia, unspecified (5) Depression with anxiety Code(s): F41.8 - OTHER SPECIFIED ANXIETY DISORDERS (6) Alcoholic cirrhosis Assessment/Plan: stable with acetic fluid no tenderness will monitor for signs or symptoms of SBP Code(s): K70.30 - ALCOHOLIC CIRRHOSIS OF LIVER WITHOUT ASCITES Qualifiers: Ascites presence: with ascites Qualified Code(s): K70.31 - Alcoholic cirrhosis of liver with ascites (7) Cellulitis Assessment/Plan: no sings of infection however the legs are both swollen and erythmatous possible chronic changes Code(s): L03.90 - CELLULITIS, UNSPECIFIED Qualifiers: Site of cellulitis: extremity Site of cellulitis of extremity: lower extremity Laterality: unspecified laterality Qualified Code(s): L03.119 - Cellulitis of unspecified part of limb (8) Psoriasis Assessment/Plan: plaque on the abdomen and body stable rheumatological evaluation Code(s): L40.9 - PSORIASIS, UNSPECIFIED
[2017-07-25] MEDS ORDERED: SODIUM CHLORIDE 1,000 ML IV SCH ×2 (08:45→15:15)
[2017-07-25] MEDS ORDERED: ONDANSETRON 4 MG TABLET PO PRN (10:00)
[2017-07-25] MEDS ORDERED: BETAMETHASONE DIPR 0.05% OINT 45 GM TUBE TP SCH (10:00)
[2017-07-25 10:54] LABS: INR 2.28 (0.82-1.09); PROTHROMBIN TIME (PATIENT) 25.8 SEC (9.98-11.88)
[2017-07-25 11:34] VITALS: BMI 30.9
[2017-07-25] MEDS: TRIAMCINOLONE ACET 0.1% OINT 15 GM TUBE TP SCH ×2 (12:52→21:17)
[2017-07-25] MEDS: LACTULOSE 20 GM/30 ML UDC (FOR ORAL USE ONLY) PO SCH (14:22)
[2017-07-25] MEDS: SPIRONOLACTONE 25 MG TABLET (FP) PO SCH (14:22)
[2017-07-25] MEDS: PANTOPRAZOLE 40 MG TABLET (FP) PO SCH (14:23)
[2017-07-25] MEDS: CYANOCOBALAMIN (VITAMIN B-12) 100 MCG TABLET PO SCH (14:23)
[2017-07-25] MEDS: MIDODRINE HCL 5 MG TABLET PO SCH ×2 (14:23→17:41)
[2017-07-25] MEDS: FUROSEMIDE 40 MG TABLET (FP) PO SCH (14:23)
[2017-07-25] MEDS: FOLIC ACID 1 MG TABLET (FP) PO SCH (14:23)
[2017-07-25] MEDS ORDERED: PT OWN MED DRAWER 7, Y5N ONE (14:30)
--- NOTE | 2017-07-25 14:38 | PN ---
Progress Note, Physician Chief Complaint: AWAKE ALERT C/O ABD PAIN DENIES NAUSEA - Current Medication List Current Medications: Active Medications Betamethasone Dipropionate (Diprolene 0.05% Ointment -) 1 applic TP BID [facility] Cyanocobalamin (Vitamin B12 -) 100 mcg PO DAILY [facility] Last Admin: 07/25/17 14:23 Dose: Not Given Folic Acid (Folic Acid -) 1 mg PO DAILY [facility] Last Admin: 07/25/17 14:23 Dose: Not Given Furosemide (Lasix -) 40 mg PO DAILY [facility] Last Admin: 07/25/17 14:23 Dose: Not Given Sodium Chloride (Normal Saline -) 1,000 mls @ 75 mls/hr IV ASDIR [facility] Last Admin: 07/25/17 10:03 Dose: 75 mls/hr Lactulose (Cephulac (Oral Use)) 20 gm PO DAILY [facility] Last Admin: 07/25/17 14:22 Dose: Not Given Midodrine (Proamatine -) 5 mg PO TID-MID [facility] Last Admin: 07/25/17 14:23 Dose: Not Given Ondansetron HCl (Zofran -) 4 mg PO Q6HPO PRN PRN Reason: nausea Pantoprazole Sodium (Protonix -) 40 mg PO DAILY [facility] Last Admin: 07/25/17 14:23 Dose: Not Given Spironolactone (Aldactone -) 50 mg PO DAILY [facility] Last Admin: 07/25/17 14:22 Dose: Not Given Triamcinolone Acetonide (Aristocort 0.1% Ointment -) 1 applic TP BID [facility] Last Admin: 07/25/17 12:52 Dose: 1 applic - Objective Vital Signs: Vital Signs Temperature 98 F 07/25/17 11:15 Pulse Rate 96 H 07/25/17 11:15 Respiratory Rate 20 07/25/17 11:15 Blood Pressure 145/72 07/25/17 11:15 O2 Sat by Pulse Oximetry (%) 98 07/25/17 08:09 Constitutional: Yes: Mild Distress Eyes: Yes: WNL HENT: Yes: WNL Neck: Yes: WNL Cardiovascular: Yes: WNL Respiratory: Yes: WNL Gastrointestinal: Yes: Distention, Tenderness, Rebound Genitourinary: Yes: WNL Musculoskeletal: Yes: Muscle Weakness Extremities: Yes: Erythema Edema: Yes Edema: LLE: 2+, RLE: 2+ Peripheral Pulses WNL: Yes Integumentary: Yes: Erythema, Rash Wound/Incision: Yes: Clean/Dry Neurological: Yes: Pre-Existing Deficit, Other ...Motor Strength: LLE, RLE Psychiatric: Yes: WNL Labs: CBC, BMP 07/25/17 03:20 07/25/17 03:20 INR, PTT INR 2.28 (0.82-1.09) H 07/25/17 09:35 Problem List - Problems (1) Alcohol abuse Code(s): F10.10 - ALCOHOL ABUSE, UNCOMPLICATED (2) Jaundice Code(s): R17 - UNSPECIFIED JAUNDICE (3) Pancreatitis Code(s): K85.90 - ACUTE PANCREATITIS WITHOUT NECROSIS OR INFECTION, UNSP Qualifiers: Chronicity: acute Pancreatitis type: unspecified pancreatitis type Acute pancreatitis complication: unspecified Qualified Code(s): K85.90 - Acute pancreatitis without necrosis or infection, unspecified (4) Alcoholic cirrhosis Code(s): K70.30 - ALCOHOLIC CIRRHOSIS OF LIVER WITHOUT ASCITES Qualifiers: Ascites presence: with ascites Qualified Code(s): K70.31 - Alcoholic cirrhosis of liver with ascites (5) Anemia Code(s): D64.9 - ANEMIA, UNSPECIFIED Qualifiers: Anemia type: unspecified type Qualified Code(s): D64.9 - Anemia, unspecified (6) Cellulitis Code(s): L03.90 - CELLULITIS, UNSPECIFIED Qualifiers: Site of cellulitis: extremity Site of cellulitis of extremity: lower extremity Laterality: unspecified laterality Qualified Code(s): L03.119 - Cellulitis of unspecified part of limb (7) Psoriasis Code(s): L40.9 - PSORIASIS, UNSPECIFIED (8) Thrombocytopenia Code(s): D69.6 - THROMBOCYTOPENIA, UNSPECIFIED Assessment/Plan IVF NPO EXCEPT MEDS AND ICE CHIPS CHRONIC PANCREATITIS WITH ACUTE EXACERBATION SURGERY EVAL GI EVAL PAIN CONTROL
[2017-07-25] MEDS: HYDROmorphone HCL CARPU-JECT 2 MG/1 ML DISP.SYRIN IVPUSH PRN ×2 (17:08→23:13)
--- NOTE | 2017-07-25 17:14 | EKG ---
Test Reason : Blood Pressure : / mmHG Vent. Rate : 090 BPM Atrial Rate : 090 BPM P-R Int : 160 ms QRS Dur : 092 ms QT Int : 408 ms P-R-T Axes : 056 028 043 degrees QTc Int : 499 ms NORMAL SINUS RHYTHM POSSIBLE LEFT ATRIAL ENLARGEMENT PROLONGED QT ABNORMAL ECG WHEN COMPARED WITH ECG OF 23-JUL-2017 09:15, NO SIGNIFICANT CHANGE WAS FOUND Confirmed by KAM MITCHELL MD ([id number]) on 07/25/2017 5:13:58 PM Referred By: Confirmed By:KAM MITCHELL MD
[2017-07-25] MEDS: BETAMETHASONE DIPR 0.05% OINTMENT 15 GM TUBE TP SCH (21:18)
[2017-07-26] MEDS: HYDROmorphone HCL CARPU-JECT 2 MG/1 ML DISP.SYRIN IVPUSH PRN ×2 (05:08→13:10)
[2017-07-26] MEDS: SPIRONOLACTONE 25 MG TABLET (FP) PO SCH (10:46)
[2017-07-26] MEDS: MIDODRINE HCL 5 MG TABLET PO SCH ×3 (10:46→18:34)
[2017-07-26] MEDS: FOLIC ACID 1 MG TABLET (FP) PO SCH (10:46)
[2017-07-26] MEDS: FUROSEMIDE 40 MG TABLET (FP) PO SCH (10:46)
[2017-07-26] MEDS: LACTULOSE 20 GM/30 ML UDC (FOR ORAL USE ONLY) PO SCH ×2 (10:46→10:57)
[2017-07-26] MEDS: PANTOPRAZOLE 40 MG TABLET (FP) PO SCH (10:46)
[2017-07-26] MEDS: BETAMETHASONE DIPR 0.05% OINTMENT 15 GM TUBE TP SCH ×2 (10:47→21:11)
[2017-07-26] MEDS: TRIAMCINOLONE ACET 0.1% OINT 15 GM TUBE TP SCH ×2 (10:47→21:11)
[2017-07-26] MEDS: CYANOCOBALAMIN (VITAMIN B-12) 100 MCG TABLET PO SCH (10:47)
--- NOTE | 2017-07-26 17:31 | PN ---
Progress Note, Physician Chief Complaint: AWAKE COMFORTABLE WANTS TO EAT DENIES PAIN - Current Medication List Current Medications: Active Medications Betamethasone Dipropionate (Diprosone 0.05% Ointment -) 1 applic TP BID [facility] Last Admin: 07/26/17 10:47 Dose: 1 applic Cyanocobalamin (Vitamin B12 -) 100 mcg PO DAILY [facility] Last Admin: 07/26/17 10:47 Dose: 100 mcg Folic Acid (Folic Acid -) 1 mg PO DAILY [facility] Last Admin: 07/26/17 10:46 Dose: 1 mg Furosemide (Lasix -) 40 mg PO DAILY [facility] Last Admin: 07/26/17 10:46 Dose: 40 mg Hydromorphone HCl (Dilaudid Injection -) 1 mg IVPUSH Q6H PRN PRN Reason: PAIN Last Admin: 07/26/17 13:10 Dose: 1 mg Lactulose (Cephulac (Oral Use)) 20 gm PO DAILY [facility] Last Admin: 07/26/17 10:57 Dose: Not Given Midodrine (Proamatine -) 5 mg PO TID-MID [facility] Last Admin: 07/26/17 13:11 Dose: 5 mg Ondansetron HCl (Zofran -) 4 mg PO Q6HPO PRN PRN Reason: nausea Pantoprazole Sodium (Protonix -) 40 mg PO DAILY [facility] Last Admin: 07/26/17 10:46 Dose: 40 mg Spironolactone (Aldactone -) 50 mg PO DAILY [facility] Last Admin: 07/26/17 10:46 Dose: 50 mg Triamcinolone Acetonide (Aristocort 0.1% Ointment -) 1 applic TP BID [facility] Last Admin: 07/26/17 10:47 Dose: 1 applic - Objective Vital Signs: Vital Signs Temperature 97.3 F L 07/26/17 15:00 Pulse Rate 94 H 07/26/17 15:00 Respiratory Rate 20 07/26/17 15:00 Blood Pressure 139/72 07/26/17 15:00 O2 Sat by Pulse Oximetry (%) 95 07/25/17 21:00 Constitutional: Yes: Mild Distress Eyes: Yes: WNL HENT: Yes: WNL Neck: Yes: WNL Cardiovascular: Yes: WNL Respiratory: Yes: WNL Gastrointestinal: Yes: Tenderness Genitourinary: Yes: WNL Musculoskeletal: Yes: WNL Extremities: Yes: WNL Edema: Yes Peripheral Pulses WNL: Yes Integumentary: Yes: Erythema, Rash Wound/Incision: Yes: Dressing Dry and Intact Neurological: Yes: Pre-Existing Deficit ...Motor Strength: LLE, RLE Psychiatric: Yes: Other Labs: CBC, BMP 07/25/17 03:20 07/25/17 03:20 INR, PTT INR 2.28 (0.82-1.09) H 07/25/17 09:35 Problem List - Problems (1) Alcohol abuse Code(s): F10.10 - ALCOHOL ABUSE, UNCOMPLICATED (2) Jaundice Code(s): R17 - UNSPECIFIED JAUNDICE (3) Pancreatitis Code(s): K85.90 - ACUTE PANCREATITIS WITHOUT NECROSIS OR INFECTION, UNSP Qualifiers: Chronicity: acute Pancreatitis type: unspecified pancreatitis type Acute pancreatitis complication: unspecified Qualified Code(s): K85.90 - Acute pancreatitis without necrosis or infection, unspecified (4) Alcoholic cirrhosis Code(s): K70.30 - ALCOHOLIC CIRRHOSIS OF LIVER WITHOUT ASCITES Qualifiers: Ascites presence: with ascites Qualified Code(s): K70.31 - Alcoholic cirrhosis of liver with ascites (5) Anemia Code(s): D64.9 - ANEMIA, UNSPECIFIED Qualifiers: Anemia type: unspecified type Qualified Code(s): D64.9 - Anemia, unspecified (6) Cellulitis Code(s): L03.90 - CELLULITIS, UNSPECIFIED Qualifiers: Site of cellulitis: extremity Site of cellulitis of extremity: lower extremity Laterality: unspecified laterality Qualified Code(s): L03.119 - Cellulitis of unspecified part of limb (7) Psoriasis Code(s): L40.9 - PSORIASIS, UNSPECIFIED (8) Thrombocytopenia Code(s): D69.6 - THROMBOCYTOPENIA, UNSPECIFIED Assessment/Plan CLEAR DIET STARTED MONITOR LEVELS PAIN CONTROL DC PLANNING
[2017-07-26] MEDS ORDERED: PT OWN MED DRAWER 7, Y5N ONE (20:46)
[2017-07-27] MEDS: HYDROmorphone HCL CARPU-JECT 2 MG/1 ML DISP.SYRIN IVPUSH PRN ×2 (05:11→17:23)
[2017-07-27 08:20] LABS: MCH 33.1 pg (25.7-33.7); MCHC 33.2 g/dl (32.0-35.9); MEAN CELL VOLUME 99.8 fl (80-96); MEAN PLT VOLUME 7.4 fl (7.5-11.1); PLATELET COUNT 95 K/MM3 (134-434); RDW 16.8 % (11.9-15.9); WHITE BLOOD COUNT 8.6 K/mm3 (4.0-10.0)
[2017-07-27 08:41] LABS: ALBUMIN 2.7 g/dl (3.4-5.0); ANION GAP 8 (8-16); CALCIUM 8.3 mg/dL (8.5-10.1); CO2 28 mmol/L (21-32); CREATININE 1.1 mg/dL (0.7-1.3); GLUCOSE,RANDOM 82 mg/dL (74-106); SGOT/AST 40 U/L (15-37); SGPT/ALT 11 U/L (12-78)
[2017-07-27 08:43] LABS: ALK PHOS 105 U/L (45-117); BILIRUBIN,TOTAL 5.9 mg/dL (0.2-1.0); TOT PROT 7.4 g/dl (6.4-8.2)
[2017-07-27] MEDS: LACTULOSE 20 GM/30 ML UDC (FOR ORAL USE ONLY) PO SCH (09:31)
[2017-07-27] MEDS: SPIRONOLACTONE 25 MG TABLET (FP) PO SCH ×2 (09:31→21:36)
[2017-07-27] MEDS: PANTOPRAZOLE 40 MG TABLET (FP) PO SCH (09:32)
[2017-07-27] MEDS: FOLIC ACID 1 MG TABLET (FP) PO SCH (09:32)
[2017-07-27] MEDS: FUROSEMIDE 40 MG TABLET (FP) PO SCH (09:32)
[2017-07-27] MEDS: MIDODRINE HCL 5 MG TABLET PO SCH ×3 (09:32→17:23)
[2017-07-27] MEDS: CYANOCOBALAMIN (VITAMIN B-12) 100 MCG TABLET PO SCH (09:36)
[2017-07-27] MEDS ORDERED: PT OWN MED DRAWER 7, Y5N ONE ×2 (09:36→11:53)
--- NOTE | 2017-07-27 11:09 | PN ---
Progress Note, Physician Chief Complaint: Abdominal Pain, Pancreatitis History of Present Illness: NAD, in pain which is improved from before BLLE edema was in the rehab at [facility] for alcohol abuse, doesn't want to go back, states he feels disrespected by Staff there labs are much improved at bedside - Current Medication List Current Medications: Active Medications Betamethasone Dipropionate (Diprosone 0.05% Ointment -) 1 applic TP BID [facility] Last Admin: 07/26/17 21:11 Dose: 1 applic Cyanocobalamin (Vitamin B12 -) 100 mcg PO DAILY [facility] Last Admin: 07/27/17 09:36 Dose: 100 mcg Folic Acid (Folic Acid -) 1 mg PO DAILY [facility] Last Admin: 07/27/17 09:32 Dose: 1 mg Furosemide (Lasix -) 40 mg PO DAILY [facility] Last Admin: 07/27/17 09:32 Dose: 40 mg Hydromorphone HCl (Dilaudid Injection -) 1 mg IVPUSH Q6H PRN PRN Reason: PAIN Last Admin: 07/27/17 05:11 Dose: 1 mg Lactulose (Cephulac (Oral Use)) 20 gm PO DAILY [facility] Last Admin: 07/27/17 09:31 Dose: Not Given Midodrine (Proamatine -) 5 mg PO TID-MID [facility] Last Admin: 07/27/17 09:32 Dose: 5 mg Ondansetron HCl (Zofran -) 4 mg PO Q6HPO PRN PRN Reason: nausea Pantoprazole Sodium (Protonix -) 40 mg PO DAILY [facility] Last Admin: 07/27/17 09:32 Dose: 40 mg Spironolactone (Aldactone -) 50 mg PO DAILY [facility] Last Admin: 07/27/17 09:31 Dose: 50 mg Triamcinolone Acetonide (Aristocort 0.1% Ointment -) 1 applic TP BID [facility] Last Admin: 07/26/17 21:11 Dose: 1 applic - Objective Vital Signs: Vital Signs Temperature 98.3 F 07/27/17 06:00 Pulse Rate 89 07/27/17 06:00 Respiratory Rate 20 07/27/17 06:00 Blood Pressure 139/63 07/27/17 06:00 O2 Sat by Pulse Oximetry (%) 94 L 07/26/17 21:00 Constitutional: Yes: Well Nourished, No Distress, Calm Cardiovascular: Yes: Regular Rate and Rhythm Respiratory: Yes: Regular Gastrointestinal: Yes: Ascites Musculoskeletal: Yes: WNL Extremities: Yes: WNL Edema: Yes Edema: LLE: 1+, RLE: 1+ Peripheral Pulses WNL: Yes Integumentary: Yes: Rash (psoriatic rash BLLE adn abdomen) Neurological: Yes: Alert, Oriented Psychiatric: Yes: Alert, Oriented Labs: CBC, BMP 07/27/17 06:35 07/27/17 06:35 INR, PTT INR 2.28 (0.82-1.09) H 07/25/17 09:35 Problem List - Problems (1) Alcohol abuse Code(s): F10.10 - ALCOHOL ABUSE, UNCOMPLICATED (2) Jaundice Code(s): R17 - UNSPECIFIED JAUNDICE (3) Pancreatitis Assessment/Plan: -lipase trending down, -seen by GI -repeat labs in AM Code(s): K85.90 - ACUTE PANCREATITIS WITHOUT NECROSIS OR INFECTION, UNSP Qualifiers: Chronicity: acute Pancreatitis type: unspecified pancreatitis type Acute pancreatitis complication: unspecified Qualified Code(s): K85.90 - Acute pancreatitis without necrosis or infection, unspecified (4) Alcoholic cirrhosis Code(s): K70.30 - ALCOHOLIC CIRRHOSIS OF LIVER WITHOUT ASCITES Qualifiers: Ascites presence: with ascites Qualified Code(s): K70.31 - Alcoholic cirrhosis of liver with ascites (5) Anemia Assessment/Plan: stable Code(s): D64.9 - ANEMIA, UNSPECIFIED Qualifiers: Anemia type: unspecified type Qualified Code(s): D64.9 - Anemia, unspecified Assessment/Plan see problem list Physical therapy plan to go home once cleared by GI.
--- NOTE | 2017-07-27 11:11 | CON.GI ---
Consult Consult Specialty:: GI - History of Present Illness History of Present Illness: Chart reviewed. Know to our service. Recently discharged s/p worsening HRS, alcoholic cirrhosis. While in rehab developed epigastric, radiating to the back abdominal pain. Found to have lipse 800. At the time of this encounter, alert, oriented, not in pain, or distress. Reports no prior history of pancreatitis as far as he knows. His at bedside. No nausea, vomiting, diarrhea, fever, chills. - History Source History Provided By: Patient, Family Member, Medical Record Limitations to Obtaining History: No Limitations - Past Medical History Cardio/Vascular: Yes: HTN Gastrointestinal: Yes: Ascites Hepatobiliary: Yes: Cirrhosis (Alcohol induced, decompensated), Other (History of severe alcoholic hepatitis, hepatic encephalopathy) Psych: Yes: Depression Musculoskeletal: Yes: Other (Cellulitis and tenosynovitis +/- osteomyelitis 3rd/ 4th digit of left hand) Dermatology: Yes: Cellulitis (of LE and of hand), Psoriasis - Alcohol/Substance Use Hx Alcohol Use: Yes (vodka 1 pint daily) History of Substance Use: reports: None - Smoking History Smoking history: Never smoked Have you smoked in the past 12 months: No - Social History Usual Living Arrangement: With Significant Other (two teenage daughters) ADL: Independent Occupation: disabled History of Recent Travel: No Home Medications - Allergies Allergies/Adverse Reactions: Allergies Allergy/AdvReac Type Severity Reaction Status Date / Time No Known Allergies Allergy Verified 07/22/17 13:49 - Home Medications Home Medications: Ambulatory Orders Thiamine HCl [Vitamin B1] 100 mg PO DAILY 12/21/16 Betamethasone Dipropionate [Diprosone 0.05% Cream -] 1 applic TP BID #60 gr Folic Acid - 1 mg PO DAILY #30 tablet 06/23/17 Pantoprazole Sodium [Protonix -] 40 mg PO BID #60 tab 06/23/17 Rifaximin [Xifaxan -] 550 mg PO BID #60 tablet 06/23/17 Furosemide [Lasix -] 40 mg PO BID@0600,1400 tablet 07/20/17 Lactulose (Oral Use) [Cephulac -] 30 gm PO Q6HPO udc 07/20/17 Magnesium Oxide [Mag-Ox -] 400 mg PO BID tablet 07/20/17 Midodrine HCl [Proamatine -] 5 mg PO TID-MID tablet 07/20/17 Spironolactone [Aldactone -] 50 mg PO DAILY tablet 07/20/17 Triamcinolone 0.5% Ointment [Aristocort 0.5% Ointment -] 1 applic TP BID tube 07/20/17 Family Disease History - Family Disease History Family History: Unremarkable Family Disease History: Other: Grandparent Review of Systems Findings/Remarks: As per H&P, HPI Physical Exam-GI Vital Signs: Vital Signs Temperature 98.3 F 07/27/17 06:00 Pulse Rate 89 07/27/17 06:00 Respiratory Rate 20 07/27/17 06:00 Blood Pressure 139/63 07/27/17 06:00 O2 Sat by Pulse Oximetry (%) 94 L 07/26/17 21:00 Constitutional: Yes: No Distress, Calm Eyes: Yes: Sclera Icterus HENT: Yes: Atraumatic Neck: Yes: Supple Cardiovascular: Yes: Regular Rate and Rhythm Respiratory: Yes: Regular Gastrointestinal Inspection: No: Ascites (not distended, no tense ascites, or detectable on exam fluid shitf), Distention ...Palpate: Yes: Soft. No: Tenderness, Tenderness, Epigastium, Tenderness, Rebound ...Percussion: No: Fluid Wave Neurological: Yes: Alert, Oriented Labs: CBC, BMP 07/27/17 06:35 07/27/17 06:35 INR, PTT INR 2.28 (0.82-1.09) H 07/25/17 09:35 Abnormal Lab Results 07/27/17 07/27/17 06:35 06:35 RBC 2.80 L Hgb 9.3 L Hct 28.0 L MCV 99.8 H RDW 16.8 H Plt Count 95 L MPV 7.4 L D Calcium 8.3 L Total Bilirubin 5.9 H AST 40 H ALT 11 L Albumin 2.7 L Imaging - Results Ultrasound: Report Reviewed Problem List - Problems (1) Alcohol abuse Code(s): F10.10 - ALCOHOL ABUSE, UNCOMPLICATED (2) Jaundice Code(s): R17 - UNSPECIFIED JAUNDICE (3) Pancreatitis Code(s): K85.90 - ACUTE PANCREATITIS WITHOUT NECROSIS OR INFECTION, UNSP Qualifiers: Chronicity: acute Pancreatitis type: unspecified pancreatitis type Acute pancreatitis complication: unspecified Qualified Code(s): K85.90 - Acute pancreatitis without necrosis or infection, unspecified (4) Alcoholic cirrhosis Code(s): K70.30 - ALCOHOLIC CIRRHOSIS OF LIVER WITHOUT ASCITES Qualifiers: Ascites presence: with ascites Qualified Code(s): K70.31 - Alcoholic cirrhosis of liver with ascites (5) Anemia Code(s): D64.9 - ANEMIA, UNSPECIFIED Qualifiers: Anemia type: unspecified type Qualified Code(s): D64.9 - Anemia, unspecified (6) Hepatic encephalopathy Code(s): K72.90 - HEPATIC FAILURE, UNSPECIFIED WITHOUT COMA Assessment/Plan A 52 yom known to GI service from recent hospitalization admitted from Rehab. with elevated lipase, epigastric, radiating to the back moderate pain. No fever , chills, GRED, nausea, vomiting, dysphagia, or surgical abdomen. Normalized BUN, Cr as compared to recent admission. Clinically appears well. POssibly grade I encephalopathy, which is an improvement compared to recent admission. Gentle hydration as tolerated in settings of ascites. Monitor BUN, Cr, electrolytes. Daily CBC, CMP, direct bili and PT Pain and antiemetics PRN Monitor VS for fever CT a/p with iv/po in fot better in 1-2 days diagnostic paracentesis if fever, chills, leukocytosis and cefepime while awaiting results Continue current medications, increase, aldactone to 50 bid low salt diet
[2017-07-27] MEDS: SERTRALINE HCL 25 MG TABLET (FP) PO SCH (12:34)
[2017-07-27] MEDS: TRIAMCINOLONE ACET 0.1% OINT 15 GM TUBE TP SCH ×2 (13:56→21:37)
[2017-07-27] MEDS ORDERED: KETOCONAZOLE 2 % SHAMPOO 120 ML BOTTLE TP SCH (15:45)
[2017-07-27] MEDS: BETAMETHASONE DIPR 0.05% OINTMENT 15 GM TUBE TP SCH ×2 (16:13→21:35)
[2017-07-27] MEDS ORDERED: LACTULOSE 20 GM/30 ML UDC (FOR ORAL USE ONLY) PO ONE (21:08)
[2017-07-28] MEDS: HYDROmorphone HCL CARPU-JECT 2 MG/1 ML DISP.SYRIN IVPUSH PRN ×2 (00:19→08:02)
[2017-07-28 09:05] LABS: INR 2.32 (0.82-1.09); PROTHROMBIN TIME (PATIENT) 26.2 SEC (9.98-11.88)
[2017-07-28 09:12] LABS: BASO % 0.8 % (0-2.0); EOS % 3.6 % (0-4.5); MCHC 33.4 g/dl (32.0-35.9); MEAN CELL VOLUME 98.8 fl (80-96); MEAN PLT VOLUME 7.7 fl (7.5-11.1); NEUT % 63.4 % (42.8-82.8); PLATELET COUNT 88 K/MM3 (134-434); RDW 16.3 % (11.9-15.9)
[2017-07-28 09:14] LABS: ALBUMIN 2.5 g/dl (3.4-5.0); ALK PHOS 100 U/L (45-117); ANION GAP 8 (8-16); BILIRUBIN,DIRECT 2.2 mg/dL (0.0-0.2); CALCIUM 8.1 mg/dL (8.5-10.1); CO2 29 mmol/L (21-32); CREATININE 1.2 mg/dL (0.7-1.3); GLUCOSE,RANDOM 150 mg/dL (74-106); SGOT/AST 39 U/L (15-37); SGPT/ALT 12 U/L (12-78)
[2017-07-28] MEDS: PANTOPRAZOLE 40 MG TABLET (FP) PO SCH (10:37)
[2017-07-28] MEDS: LACTULOSE 20 GM/30 ML UDC (FOR ORAL USE ONLY) PO SCH (10:37)
[2017-07-28] MEDS: SPIRONOLACTONE 25 MG TABLET (FP) PO SCH (10:37)
[2017-07-28] MEDS: MIDODRINE HCL 5 MG TABLET PO SCH ×2 (10:37→15:55)
[2017-07-28] MEDS: FOLIC ACID 1 MG TABLET (FP) PO SCH (10:37)
[2017-07-28] MEDS: BETAMETHASONE DIPR 0.05% OINTMENT 15 GM TUBE TP SCH (10:38)
[2017-07-28] MEDS: TRIAMCINOLONE ACET 0.1% OINT 15 GM TUBE TP SCH (10:38)
[2017-07-28] MEDS: FUROSEMIDE 40 MG TABLET (FP) PO SCH (10:38)
[2017-07-28] MEDS: CYANOCOBALAMIN (VITAMIN B-12) 100 MCG TABLET PO SCH (10:39)
[2017-07-28] MEDS: SERTRALINE HCL 25 MG TABLET (FP) PO SCH (10:40)
--- NOTE | 2017-07-28 11:07 | PN ---
Progress Note, Physician Chief Complaint: Abdominal Pain, Pancreatitis History of Present Illness: NAD, in pain which is improved from before BLLE edema was in the rehab at [facility] for alcohol abuse, doesn't want to go back, states he feels disrespected by Staff there labs are much improved at bedside - Current Medication List Current Medications: Active Medications Betamethasone Dipropionate (Diprosone 0.05% Ointment -) 1 applic TP BID [facility] Last Admin: 07/28/17 10:38 Dose: 1 applic Cyanocobalamin (Vitamin B12 -) 100 mcg PO DAILY [facility] Last Admin: 07/28/17 10:39 Dose: 100 mcg Folic Acid (Folic Acid -) 1 mg PO DAILY [facility] Last Admin: 07/28/17 10:37 Dose: 1 mg Furosemide (Lasix -) 40 mg PO DAILY [facility] Last Admin: 07/28/17 10:38 Dose: 40 mg Hydromorphone HCl (Dilaudid Injection -) 1 mg IVPUSH Q6H PRN PRN Reason: PAIN Last Admin: 07/28/17 08:02 Dose: 1 mg Ketoconazole (Nizoral 2% Shampoo -) 1 applic TP Q72H [facility] Last Admin: 07/27/17 16:14 Dose: 1 applic Lactulose (Cephulac (Oral Use)) 20 gm PO DAILY [facility] Last Admin: 07/28/17 10:37 Dose: 20 gm Midodrine (Proamatine -) 5 mg PO TID-MID [facility] Last Admin: 07/28/17 10:37 Dose: 5 mg Ondansetron HCl (Zofran -) 4 mg PO Q6HPO PRN PRN Reason: nausea Pantoprazole Sodium (Protonix -) 40 mg PO DAILY [facility] Last Admin: 07/28/17 10:37 Dose: 40 mg Sertraline HCl (Zoloft -) 25 mg PO DAILY [facility] Last Admin: 07/28/17 10:40 Dose: 25 mg Spironolactone (Aldactone -) 50 mg PO BID [facility] Last Admin: 07/28/17 10:37 Dose: 50 mg Triamcinolone Acetonide (Aristocort 0.1% Ointment -) 1 applic TP BID [facility] Last Admin: 07/28/17 10:38 Dose: 1 applic - Objective Vital Signs: Vital Signs Temperature 98.1 F 07/28/17 06:00 Pulse Rate 82 07/28/17 06:00 Respiratory Rate 20 07/28/17 06:00 Blood Pressure 127/63 07/28/17 06:00 O2 Sat by Pulse Oximetry (%) 95 07/27/17 21:00 Constitutional: Yes: Well Nourished, No Distress, Calm Cardiovascular: Yes: Regular Rate and Rhythm Respiratory: Yes: Regular Gastrointestinal: Yes: Ascites Musculoskeletal: Yes: WNL Extremities: Yes: WNL Neurological: Yes: Alert, Oriented Psychiatric: Yes: Alert, Oriented Labs: CBC, BMP 07/28/17 07:10 07/28/17 07:10 INR, PTT INR 2.32 (0.82-1.09) H 07/28/17 07:10 Problem List - Problems (1) Alcohol abuse Code(s): F10.10 - ALCOHOL ABUSE, UNCOMPLICATED (2) Jaundice Code(s): R17 - UNSPECIFIED JAUNDICE (3) Pancreatitis Assessment/Plan: -lipase trending down, -seen by GI -repeat labs in 1 week Code(s): K85.90 - ACUTE PANCREATITIS WITHOUT NECROSIS OR INFECTION, UNSP Qualifiers: Chronicity: acute Pancreatitis type: unspecified pancreatitis type Acute pancreatitis complication: unspecified Qualified Code(s): K85.90 - Acute pancreatitis without necrosis or infection, unspecified (4) Alcoholic cirrhosis Code(s): K70.30 - ALCOHOLIC CIRRHOSIS OF LIVER WITHOUT ASCITES Qualifiers: Ascites presence: with ascites Qualified Code(s): K70.31 - Alcoholic cirrhosis of liver with ascites (5) Anemia Assessment/Plan: stable Code(s): D64.9 - ANEMIA, UNSPECIFIED Qualifiers: Anemia type: unspecified type Qualified Code(s): D64.9 - Anemia, unspecified Assessment/Plan see problem list Physical therapy, he is very unsteady and is a fall risk Would increase lactulose to 3 x day d/c home
--- NOTE | 2017-07-28 12:31 | PN ---
Progress Note, Physician History of Present Illness: No events. Cannot get good night sleep due to noise - Current Medication List Current Medications: Active Medications Betamethasone Dipropionate (Diprosone 0.05% Ointment -) 1 applic TP BID [facility] Last Admin: 07/28/17 10:38 Dose: 1 applic Cyanocobalamin (Vitamin B12 -) 100 mcg PO DAILY [facility] Last Admin: 07/28/17 10:39 Dose: 100 mcg Folic Acid (Folic Acid -) 1 mg PO DAILY [facility] Last Admin: 07/28/17 10:37 Dose: 1 mg Furosemide (Lasix -) 40 mg PO DAILY [facility] Last Admin: 07/28/17 10:38 Dose: 40 mg Hydromorphone HCl (Dilaudid Injection -) 1 mg IVPUSH Q6H PRN PRN Reason: PAIN Last Admin: 07/28/17 08:02 Dose: 1 mg Ketoconazole (Nizoral 2% Shampoo -) 1 applic TP Q72H [facility] Last Admin: 07/27/17 16:14 Dose: 1 applic Lactulose (Cephulac (Oral Use)) 20 gm PO DAILY [facility] Last Admin: 07/28/17 10:37 Dose: 20 gm Midodrine (Proamatine -) 5 mg PO TID-MID [facility] Last Admin: 07/28/17 10:37 Dose: 5 mg Ondansetron HCl (Zofran -) 4 mg PO Q6HPO PRN PRN Reason: nausea Pantoprazole Sodium (Protonix -) 40 mg PO DAILY [facility] Last Admin: 07/28/17 10:37 Dose: 40 mg Sertraline HCl (Zoloft -) 25 mg PO DAILY [facility] Last Admin: 07/28/17 10:40 Dose: 25 mg Spironolactone (Aldactone -) 50 mg PO BID [facility] Last Admin: 07/28/17 10:37 Dose: 50 mg Triamcinolone Acetonide (Aristocort 0.1% Ointment -) 1 applic TP BID [facility] Last Admin: 07/28/17 10:38 Dose: 1 applic - Objective Vital Signs: Vital Signs Temperature 98.1 F 07/28/17 06:00 Pulse Rate 82 07/28/17 06:00 Respiratory Rate 20 07/28/17 06:00 Blood Pressure 127/63 07/28/17 06:00 O2 Sat by Pulse Oximetry (%) 95 07/27/17 21:00 Constitutional: Yes: No Distress, Calm Eyes: Yes: Sclera Icterus HENT: Yes: Atraumatic Neck: Yes: Supple Cardiovascular: Yes: Regular Rate and Rhythm Respiratory: Yes: Regular Gastrointestinal: Yes: Soft. No: Distention, Melena, Rectal Bleeding, Tenderness, Vomiting Neurological: Yes: Alert, Oriented, Asterixis, Tremors. No: Confusion Labs: CBC, BMP 07/28/17 07:10 07/28/17 07:10 INR, PTT INR 2.32 (0.82-1.09) H 07/28/17 07:10 Abnormal Lab Results 07/28/17 07/28/17 07/28/17 07:10 07:10 07:10 RBC 2.62 L Hgb 8.6 L Hct 25.9 L MCV 98.8 H RDW 16.3 H Plt Count 88 L Monocytes % 11.1 H PT with INR 26.20 H INR 2.32 H Random Glucose 150 H D Calcium 8.1 L Total Bilirubin 5.0 H Direct Bilirubin 2.2 H AST 39 H Ammonia Albumin 2.5 L 07/28/17 08:00 RBC Hgb Hct MCV RDW Plt Count Monocytes % PT with INR INR Random Glucose Calcium Total Bilirubin Direct Bilirubin AST Ammonia 52 H Albumin Problem List - Problems (1) Alcohol abuse Code(s): F10.10 - ALCOHOL ABUSE, UNCOMPLICATED (2) Jaundice Code(s): R17 - UNSPECIFIED JAUNDICE (3) Pancreatitis Code(s): K85.90 - ACUTE PANCREATITIS WITHOUT NECROSIS OR INFECTION, UNSP Qualifiers: Chronicity: acute Pancreatitis type: unspecified pancreatitis type Acute pancreatitis complication: unspecified Qualified Code(s): K85.90 - Acute pancreatitis without necrosis or infection, unspecified (4) Alcoholic cirrhosis Code(s): K70.30 - ALCOHOLIC CIRRHOSIS OF LIVER WITHOUT ASCITES Qualifiers: Ascites presence: with ascites Qualified Code(s): K70.31 - Alcoholic cirrhosis of liver with ascites (5) Anemia Code(s): D64.9 - ANEMIA, UNSPECIFIED Qualifiers: Anemia type: unspecified type Qualified Code(s): D64.9 - Anemia, unspecified (6) Hepatic encephalopathy Code(s): K72.90 - HEPATIC FAILURE, UNSPECIFIED WITHOUT COMA Assessment/Plan Clinically better. Pain free. tolerating diet Gentle hydration as tolerated in settings of ascites. current medications management low salt diet OK to d/c home with close follow up. Discussed with patient. He is categorically against going back to rehab
--- NOTE | 2017-07-28 15:05 | DS ---
Physical Examination Vital Signs: Vital Signs Temperature 99.1 F 07/28/17 10:00 Pulse Rate 96 H 07/28/17 10:00 Respiratory Rate 18 07/28/17 10:00 Blood Pressure 134/73 07/28/17 10:00 O2 Sat by Pulse Oximetry (%) 95 07/28/17 09:00 Constitutional: Yes: Well Nourished, No Distress, Calm Cardiovascular: Yes: Regular Rate and Rhythm Respiratory: Yes: Regular Gastrointestinal: Yes: Abdomen, Obese, Ascites Musculoskeletal: Yes: WNL Extremities: Yes: Erythema (BLLE) Edema: Yes Edema: LLE: 1+, RLE: 1+ Peripheral Pulses WNL: Yes Integumentary: Yes: Rash (generalized psoriatic rash) Neurological: Yes: Alert, Oriented Psychiatric: Yes: Alert, Oriented Labs: CBC, BMP 07/28/17 07:10 07/28/17 07:10 Discharge Summary Reason For Visit: PACREATITIS,THROMBOCYTOPENIA Current Active Problems Alcohol abuse (Acute) Jaundice (Acute) Pancreatitis (Acute) Hospital Course: 2-year-old male biba from [facility] for [facility]. Pt has a history of alcohol cirrhosis/ascites,encephalopathy, varices and depression presents to the emergency department c/o right upper quadrant abdominal discomfort. Pain is described as 4/10 dull intermittent discomfort which intermittently radiates to his side since last evening. The pain is exacerbated on touch and there are no alleviating factors. Patient was transplant list was recently due to his persistent drinking/alcohol. Pt's last drink x 2 weeks ago. Condition: Guarded - Instructions Diet, Activity, Other Instructions: Low sodium diet Follow up with Dr Robert Craig in 1 week, call [phone] Prakash Ashley or Francisco J Noyola, [facility] within 2 weeks, call Lactulose 30 ml 3 x day Physical Therapy Use Ketoconazole as a body wash Referrals: Prakash Ashley MD [Primary Care Provider] - - Home Medications Comprehensive Discharge Medication List: Ambulatory Orders Folic Acid - 1 mg PO DAILY #30 tablet 06/23/17 Pantoprazole Sodium [Protonix -] 40 mg PO BID #60 tab 06/23/17 Midodrine HCl [Proamatine -] 5 mg PO TID-MID tablet 12/19/17 Betamethasone Dipropionate [Diprosone 0.05% Ointment -] 1 applic TP BID #1 tube 07/28/17 Cyanocobalamin [Vitamin B12 -] 100 mcg PO DAILY #30 tablet 07/28/17 Diazepam [Valium] 5 mg PO HS #30 tablet MDD 1 07/28/17 Folic Acid - 1 mg PO DAILY #30 tablet 07/28/17 Furosemide [Lasix -] 40 mg PO DAILY #30 tablet 07/28/17 Ketoconazole 2% Shampoo [Nizoral 2% Shampoo -] 1 applic TP Q72H #1 bottle Lactulose (Oral Use) [Cephulac -] 20 gm PO TID #2700 ml 07/28/17 Magnesium Oxide [Mag-Ox -] 400 mg PO BID #60 tablet 07/28/17 Midodrine HCl [Proamatine -] 5 mg PO TID-MID #90 tablet 07/28/17 Ondansetron [Zofran -] 4 mg PO Q6HPO PRN #120 tablet 07/28/17 Oxycodone HCl [Roxicodone -] 5 mg PO TID PRN #90 tablet MDD 3 07/28/17 Pantoprazole Sodium [Protonix -] 40 mg PO DAILY #30 tablet.ec 07/28/17 Rifaximin [Xifaxan -] 550 mg PO BID #60 tablet 07/28/17 Sertraline HCl [Zoloft -] 25 mg PO DAILY #30 tablet 07/28/17 Spironolactone [Aldactone -] 50 mg PO BID #60 tablet 07/28/17 Thiamine HCl [Vitamin B1] 100 mg PO DAILY #30 tablet 07/28/17 Triamcinolone 0.1% Ointment [Aristocort 0.1% Ointment -] 1 applic TP BID #45 applic 07/28/17
[2017-07-28] MEDS ORDERED: diphenhydrAMINE HCL 25 MG CAPSULE (FP) PO ONE (15:29)
[2017-07-28] MEDS ORDERED: methylPREDNISolone NA SUCC 125 MG/2 ML VIAL IVPUSH ONE (15:30)
[2017-07-28] MEDS ORDERED: FAMOTIDINE IV 20 MG/12 ML VIAL IVPUSH ONE (15:31)
[2017-07-28 15:32] VITALS: BP 122/78; PULSE 82; TEMP 98.3
--- NOTE | 2017-07-28 15:34 | HOSP ---
Subjective - Review of Symptoms Subjective: Note entered in error. No SOCIAL WORK SUPERVISOR called on this pt. My apologies to the providers. Physical Examination Vital Signs: Vital Signs Temperature 99.1 F 07/28/17 10:00 Pulse Rate 96 H 07/28/17 10:00 Respiratory Rate 18 07/28/17 10:00 Blood Pressure 134/73 07/28/17 10:00 O2 Sat by Pulse Oximetry (%) 95 07/28/17 09:00 Labs: CBC, BMP 07/28/17 07:10 07/28/17 07:10
== END 2017-07-28 15:58 | disposition home or self-care (01) | DRG 439 ==
LOC: JER 03:06 → JERBED 06:01 → J8W 08:50
PROVIDERS: ADMIT Family Medicine; ATTEND Family Medicine
DX: K85.90 Acute pancreatitis without necrosis or infection, unspecified (principal); L03.114 Cellulitis of left upper limb; K70.31 Alcoholic cirrhosis of liver with ascites; K72.90 Hepatic failure, unspecified without coma; L40.8 Other psoriasis; D64.9 Anemia, unspecified; F10.10 Alcohol abuse, uncomplicated; D69.6 Thrombocytopenia, unspecified; F41.8 Other specified anxiety disorders; E66.8 Other obesity; Z68.31 Body mass index [BMI] 31.0-31.9, adult
CPT/HCPCS: 36415; 71010-TC; 76700-TC; 80053; 82140; 82150; 82248; 83690; 85025; 85027; 85032; 85610; 93005; 93010; 97116-GP; 97161-GP; 99284-25

== ENCOUNTER 2017-08-04 13:50 | Inpatient (IN) | payer BC ==
--- NOTE | 2017-08-04 14:28 | PDOC ---
History of Present Illness - General History Source: Patient, Spouse () Exam Limitations: No Limitations - History of Present Illness Initial Comments: 08/04/17 16:55 The patient is a 52 year old male with a significant PMH of alcohol cirrhosis/ ascites, liver failure, encephalopathy, varices, psoriasis, and depression who presents to the emergency department with increased confusion, weakness over the past week and hematuria/hematochezia (unclear which) earlier this morning. The patients reports that the patient has become more generally weak and is unable to regularly ambulate or climb stairs. She also notes that the patient has become more confused lately, taking more time than usual to interpret what people are saying to him. The patients also notes that the patient went to the bathroom this morning and noted blood in the toilet. He is unsure whether it was hematuria or hematochezia. The patients notes that the patient was admitted on 07/25/17 for pancreatitis, and has noted that the patient has had a drastically reduced appetite since being discharged on . She reports his last full meal was on 07/29/17. The patient denies chest pain, shortness of breath, headache and dizziness. Denies fever, chills, nausea, vomit, diarrhea and constipation. Denies dysuria, frequency, urgency. Allergies: NKA Past surgical history: None reported. Social history: Recovering alcoholic. No reported cigarette or drug use. PCP: Dr. Ashley <Arnel Potter - Last Filed: 08/04/17 16:55> - General History Source: Patient Exam Limitations: No Limitations <Naye Corey - Last Filed: 08/05/17 14:46> - General Stated Complaint: WEAKNESS/BLOOD IN STOOL Time Seen by Provider: 08/04/17 14:28 Past History <Arnel Potter - Last Filed: 08/04/17 16:55> - Past Medical History Anemia: Yes Asthma: No Cancer: No Cardiac Disorders: Yes CVA: No COPD: No CHF: No DVT: No Dementia: No Diabetes: No GI Disorders: Yes Disorders: No HTN: Yes Hypercholesterolemia: No Kidney Stones: No Liver Disease: Yes (cirrhosis, acites) Psychiatric Problems: Yes (depression) Seizures: No Thyroid Disease: Yes - Reproductive History Testicular Surgery: No - Suicide/Smoking/Psychosocial Hx Smoking History: Never smoked Have you smoked in the past 12 months: No 'Breaking Loose' booklet given: 07/22/17 Hx Alcohol Use: Yes (vodka 1 pint daily) Drug/Substance Use Hx: No Substance Use Type: Alcohol Hx Substance Use Treatment: Yes ([facility]) <Naye Corey - Last Filed: 08/05/17 14:46> - Past Medical History Allergies/Adverse Reactions: Allergies Allergy/AdvReac Type Severity Reaction Status Date / Time No Known Allergies Allergy Verified 07/22/17 13:49 Home Medications: Ambulatory Orders Folic Acid - 1 mg PO DAILY #30 tablet 06/23/17 Midodrine HCl [Proamatine -] 5 mg PO TID-MID tablet 07/20/17 Betamethasone Dipropionate [Diprosone 0.05% Ointment -] 1 applic TP BID #1 tube 07/28/17 Cyanocobalamin [Vitamin B12 -] 100 mcg PO DAILY #30 tablet 07/28/17 Diazepam [Valium] 5 mg PO HS #30 tablet MDD 1 07/28/17 Furosemide [Lasix -] 40 mg PO DAILY #30 tablet 07/28/17 Ketoconazole 2% Shampoo [Nizoral 2% Shampoo -] 1 applic TP Q72H #1 bottle Lactulose (Oral Use) [Cephulac -] 20 gm PO TID #2700 ml 07/28/17 Magnesium Oxide [Mag-Ox -] 400 mg PO BID #60 tablet 07/28/17 Ondansetron [Zofran -] 4 mg PO Q6HPO PRN #120 tablet 07/28/17 Oxycodone HCl [Roxicodone -] 5 mg PO TID PRN #90 tablet MDD 3 07/28/17 Pantoprazole Sodium [Protonix -] 40 mg PO DAILY #30 tablet.ec 07/28/17 Rifaximin [Xifaxan -] 550 mg PO BID #60 tablet 07/28/17 Sertraline HCl [Zoloft -] 25 mg PO DAILY #30 tablet 07/28/17 Spironolactone [Aldactone -] 50 mg PO BID #60 tablet 07/28/17 Thiamine HCl [Vitamin B1] 100 mg PO DAILY #30 tablet 07/28/17 Triamcinolone 0.1% Ointment [Aristocort 0.1% Ointment -] 1 applic TP BID #45 applic 07/28/17 Review of Systems - Review of Systems Able to Perform ROS?: Yes Comments:: 08/04/17 16:55 GENERAL/CONSTITUTIONAL: (+) Generalized weakness. (+) Confusion. (+) Reduced appetite. No fever or chills. HEAD, EYES, EARS, NOSE AND THROAT: No change in vision. No ear pain or discharge. No sore throat. CARDIOVASCULAR: No chest pain or shortness of breath. RESPIRATORY: No cough, wheezing, or hemoptysis. GASTROINTESTINAL: No nausea, vomiting, diarrhea or constipation. GENITOURINARY: (+) Hematochezia/hematuria, unclear which. No dysuria, frequency. MUSCULOSKELETAL: No joint or muscle swelling or pain. No neck or back pain. SKIN: No rash NEUROLOGIC: No headache, vertigo, loss of consciousness, or change in strength/ sensation. ENDOCRINE: No increased thirst. No abnormal weight change. HEMATOLOGIC/LYMPHATIC: No anemia, easy bleeding, or history of blood clots. ALLERGIC/IMMUNOLOGIC: No hives or skin allergy. <Arnel Potter - Last Filed: 08/04/17 16:55> *Physical Exam - Vital Signs Last Vital Signs Temp Pulse Resp BP Pulse Ox 97.6 F 82 18 155/76 96 08/04/17 14:25 08/04/17 14:25 08/04/17 14:25 08/04/17 14:25 08/04/17 14:25 - Physical Exam Comments: 08/04/17 16:55 GENERAL: (+) Jaundiced. (+) Confused. The patient is in no acute distress. HEAD: Normal with no signs of trauma. EYES: (+) Sclera icterus. PERRLA, EOMI, conjunctiva clear. ENT: (+) Dry mucous membranes. Ears normal, nares patent, oropharynx clear without exudates. NECK: Normal range of motion, supple without lymphadenopathy, JVD, or masses. LUNGS: Breath sounds equal, clear to auscultation bilaterally. No wheezes, and no crackles. HEART:Regular rate and rhythm, normal S1 and S2 without murmur, rub or gallop. ABDOMEN: Soft, nontender, normoactive bowel sounds. No guarding, no rebound. No masses palpable. RECTAL: No external hemorrhoids. EXTREMITIES: Normal range of motion, no edema. No clubbing or cyanosis. No erythema, or tenderness. NEUROLOGICAL: Cranial nerves II through XII grossly intact. Normal speech. No focal neurological deficits. MUSCULOSKELETAL: Back non-tender to palpation, no CVA tenderness SKIN: (+) Diffuse psoriasis. Warm, Dry, normal turgor, no rashes or lesions noted. <Arnel Potter - Last Filed: 08/04/17 16:55> ED Treatment Course - LABORATORY CBC & Chemistry Diagram: 08/04/17 15:35 08/04/17 15:35 - ADDITIONAL ORDERS Additional order review: Laboratory Results 08/04/17 08/04/17 08/04/17 15:35 15:35 15:35 PT with INR 23.20 H INR 2.05 H Sodium 138 Potassium 4.3 Chloride 97 L Carbon Dioxide 30 Anion Gap 11 BUN 12 D Creatinine 1.5 H D Creat Clearance w eGFR 48.77 Random Glucose 129 H Calcium 9.4 Total Bilirubin 5.2 H AST 54 H D ALT 16 D Alkaline Phosphatase 113 Creatine Kinase 26 L Troponin I < 0.02 Total Protein 8.9 H D Albumin 2.9 L Stool Occult Blood Blood Type O POSITIVE Antibody Screen Negative 08/04/17 15:00 PT with INR INR Sodium Potassium Chloride Carbon Dioxide Anion Gap BUN Creatinine Creat Clearance w eGFR Random Glucose Calcium Total Bilirubin AST ALT Alkaline Phosphatase Creatine Kinase Troponin I Total Protein Albumin Stool Occult Blood Negative Blood Type Antibody Screen 08/04/17 15:35 RBC 3.21 L D MCV 97.9 H MCHC 33.7 RDW 16.0 H MPV 7.8 Neutrophils % 58.2 Lymphocytes % 27.1 D Monocytes % 10.4 H Eosinophils % 3.5 Basophils % 0.8 <Arnel Potter - Last Filed: 08/04/17 16:55> - LABORATORY CBC & Chemistry Diagram: 08/05/17 08:30 08/05/17 08:30 <Naye Corey - Last Filed: 08/05/17 14:46> Medical Decision Making - Medical Decision Making 08/04/17 15:36 This is a 52 yo M who presents to the ER with a complaint of progressively worsening weakness and rectal bleeding Briefly, he has a history of alcohol cirrhosis/ascites, encephalopathy, varices and depression presents to the emergency department with due to worsening generalized weakness. No abdominal pain, no trauma No fevers or chills Pt also noted rectal bleeding On examination GENERAL: The patient is in no acute distress. HEAD: Normal EYES: PERRLA, EOMI, scleral icterus ENT: Ears normal, nares patent, oropharynx clear without exudates. Dry mucous membranes. NECK: Normal range of motion, supple LUNGS: Breath sounds equal, clear to auscultation bilaterally. No wheezes, and no crackles. HEART:Regular rate and rhythm, normal S1 and S2 without murmur, rub or gallop. ABDOMEN: Soft, nontender, normoactive bowel sounds. No guarding, no rebound. EXTREMITIES: Normal range of motion, no edema. NEUROLOGICAL: Cranial nerves II through XII grossly intact. Normal speech. No focal neurological deficits. MUSCULOSKELETAL: Back non-tender to palpation SKIN: (+) diffuse erythematous plaques on extremities trunk and abdomen 08/04/17 15:38 Pt appears jaundiced and dehydrated and weak Pt is intermittently confused when he answers questions Anticipate admission DD: hepatic encephalopathy, decompensated cirrhosis, variceal bleeding Rectal examination with brown stool 08/04/17 15:57 Laboratory Tests 07/28/17 07/28/17 08/04/17 07:10 07:10 15:00 WBC 8.0 Hgb 8.6 L Hct 25.9 L Plt Count 88 L INR 2.32 H Stool Occult Blood Negative 08/04/17 08/04/17 15:35 15:35 WBC 6.6 Hgb 10.6 L D Hct 31.4 L D Plt Count 87 L INR 2.05 H Stool Occult Blood 08/04/17 16:18 Laboratory Tests 08/04/17 15:35 Sodium 138 Potassium 4.3 Chloride 97 L Carbon Dioxide 30 BUN 12 D Creatinine 1.5 H D Random Glucose 129 H Total Bilirubin 5.2 H Ammonia level elevated Lactulose ordered No abdominal pain/distention to suggest peritonitis Clinical Impression: hepatic encephalopathy, initial presentation <Naye Corey - Last Filed: 08/05/17 14:46> *DC/Admit/Observation/Transfer - Attestations Scribe Attestion: 08/04/17 16:56 Documentation prepared by Arnel Potter, acting as medical field representative for Naye Corey MD. <Arnel Potter - Last Filed: 08/04/17 16:55> - Discharge Dispostion Admit: Yes <Naye Corey - Last Filed: 08/05/17 14:46> Diagnosis at time of Disposition: Hepatic encephalopathy - Discharge Dispostion Condition at time of disposition: Fair
[2017-08-04 15:41] LABS: BASO % 0.8 % (0-2.0); EOS % 3.5 % (0-4.5); HEMATOCRIT 31.4 % (35.4-49); HEMOGLOBIN 10.6 GM/dL (11.7-16.9); LYMPH % 27.1 % (8-40); MCHC 33.7 g/dl (32.0-35.9); MEAN CELL VOLUME 97.9 fl (80-96); MEAN PLT VOLUME 7.8 fl (7.5-11.1); MONO % 10.4 % (3.8-10.2); NEUT % 58.2 % (42.8-82.8); PLATELET COUNT 87 K/MM3 (134-434); RBC 3.21 M/mm3 (4.00-5.60); WHITE BLOOD COUNT 6.6 K/mm3 (4.0-10.0)
[2017-08-04 15:51] LABS: INR 2.05 (0.82-1.09); PROTHROMBIN TIME (PATIENT) 23.2 SEC (9.98-11.88)
[2017-08-04 16:14] LABS: ALBUMIN 2.9 g/dl (3.4-5.0); ANION GAP 11 (8-16); BILIRUBIN,TOTAL 5.2 mg/dL (0.2-1.0); BLOOD UREA NITROGEN 12 mg/dL (7-18); CALCIUM 9.4 mg/dL (8.5-10.1); CHLORIDE 97 mmol/L (98-107); CO2 30 mmol/L (21-32); CREATININE 1.5 mg/dL (0.7-1.3); GLUCOSE,RANDOM 129 mg/dL (74-106); POTASSIUM 4.3 mmol/L (3.5-5.1); SGOT/AST 54 U/L (15-37); SGPT/ALT 16 U/L (12-78); SODIUM 138 mmol/L (136-145); TOT PROT 8.9 g/dl (6.4-8.2)
[2017-08-04 16:16] LABS: ALK PHOS 113 U/L (45-117)
[2017-08-04] MEDS ORDERED: LACTULOSE 20 GM/30 ML UDC (FOR ORAL USE ONLY) PO ONE (18:59)
[2017-08-04] MEDS ORDERED: LACTULOSE 20 GM/30 ML UDC (FOR ORAL USE ONLY) ONE (19:32)
--- NOTE | 2017-08-04 19:35 | PDOC ---
ED Treatment Course - LABORATORY CBC & Chemistry Diagram: 08/05/17 08:30 08/05/17 08:30 - ADDITIONAL ORDERS Additional order review: Laboratory Results 08/04/17 08/04/17 08/04/17 17:39 15:35 15:35 PT with INR INR Sodium 138 Potassium 4.3 Chloride 97 L Carbon Dioxide 30 Anion Gap 11 BUN 12 D Creatinine 1.5 H D Creat Clearance w eGFR 48.77 Random Glucose 129 H Calcium 9.4 Total Bilirubin 5.2 H AST 54 H D ALT 16 D Alkaline Phosphatase 113 Ammonia 88.8 H Creatine Kinase 26 L Troponin I < 0.02 Total Protein 8.9 H D Albumin 2.9 L Stool Occult Blood Blood Type O POSITIVE Antibody Screen Negative 08/04/17 08/04/17 15:35 15:00 PT with INR 23.20 H INR 2.05 H Sodium Potassium Chloride Carbon Dioxide Anion Gap BUN Creatinine Creat Clearance w eGFR Random Glucose Calcium Total Bilirubin AST ALT Alkaline Phosphatase Ammonia Creatine Kinase Troponin I Total Protein Albumin Stool Occult Blood Negative Blood Type Antibody Screen 08/04/17 15:35 RBC 3.21 L D MCV 97.9 H MCHC 33.7 RDW 16.0 H MPV 7.8 Neutrophils % 58.2 Lymphocytes % 27.1 D Monocytes % 10.4 H Eosinophils % 3.5 Basophils % 0.8 - RADIOLOGY Radiology Studies Ordered: Category Date Time Status CHEST X-RAY PORTABLE* [RAD] Stat Radiology 08/04/17 19:15 Ordered Medical Decision Making - Medical Decision Making Case reviewed with JUANITO Roper Will place on observation to Dr. Angela *DC/Admit/Observation/Transfer Diagnosis at time of Disposition: Hepatic encephalopathy - Discharge Dispostion Condition at time of disposition: Fair Admit: Yes Decision to Admit order Date/Time: Decision to Admit Order Category Date Time Status Decision to Admit to Hospital Routine Admission 08/04/17 19:25 Active - Referrals - Patient Instructions - Post Discharge Activity
[2017-08-04 19:48] LABS: URINE APPEARANCE CLEAR; URINE BILIRUBIN NEGATIVE (NEGATIVE); URINE BLOOD 3+ (NEGATIVE); URINE COLOR YELLOW; URINE GLUCOSE (UA) NEGATIVE (NEGATIVE); URINE KETONE NEGATIVE (NEGATIVE); URINE LEUK ESTERASE NEGATIVE (NEGATIVE); URINE NITRITE NEGATIVE (NEGATIVE); URINE PROTEIN NEGATIVE (NEGATIVE); URINE UROBILINOGEN NEGATIVE mg/dL (0.2-1.0)
[2017-08-04 20:29] LABS: URINE HYALINE CAST 1 /lpf; URINE MUCUS RARE
--- NOTE | 2017-08-04 23:18 | HP ---
CHIEF COMPLAINT: blood in toilet this am PCP: Gabi HISTORY OF PRESENT ILLNESS: This is a 52 year old male with a significant past medical history of ESLD, alcoholic cirrhosis, esophageal varices who presented to the ED with after noticing blood in toilet. He had both urinated and moved his bowels and thus was unsure of the source of the blood. Pt denies abdominal pain, nausea, vomiting. reports that she noticed he has been a little more confused with a poor appetite since his DC from the hospital on 07/28. ER course was notable for: (1) Hgb 10.6 (2) stool guaiac negative (3) 3+ blood; 55 RBC in urine Recent Travel: pt denies PAST MEDICAL HISTORY: alcoholic cirrhosis, ESLD with hepatic encephalopathy varices Pancreatitis depression cellulitis/OM 3rd/4th finger L hand psoriasis PAST SURGICAL HISTORY: pt denies any prior surgeries Social History: Smoking: pt denies Alcohol: pt reports last Etoh was prior to his hospitalization for pancreatitis Drugs: pt denies Family History: mother alive and well father age 97, Alzheimer's disease sister without medical problems Allergies No Known Allergies Allergy (Verified 07/22/17 13:49) HOME MEDICATIONS: 3 Medication Instructions Recorded Folic Acid - 1 mg PO DAILY #30 tablet 06/23/17 Midodrine HCl [Proamatine -] 5 mg PO TID-MID tablet 07/20/17 Betamethasone Dipropionate 1 applic TP BID #1 tube 07/28/17 [Diprosone 0.05% Ointment -] Cyanocobalamin [Vitamin B12 -] 100 mcg PO DAILY #30 tablet 07/28/17 Diazepam [Valium] 5 mg PO HS #30 tablet MDD 1 07/28/17 Furosemide [Lasix -] 40 mg PO DAILY #30 tablet 07/28/17 Ketoconazole 2% Shampoo [Nizoral 1 applic TP Q72H #1 bottle 07/28/17 2% Shampoo -] Lactulose (Oral Use) [Cephulac -] 20 gm PO TID #2700 ml 07/28/17 Magnesium Oxide [Mag-Ox -] 400 mg PO BID #60 tablet 07/28/17 Ondansetron [Zofran -] 4 mg PO Q6HPO PRN #120 tablet 07/28/17 Oxycodone HCl [Roxicodone -] 5 mg PO TID PRN #90 tablet MDD 3 07/28/17 Pantoprazole Sodium [Protonix -] 40 mg PO DAILY #30 tablet.ec 07/28/17 Rifaximin [Xifaxan -] 550 mg PO BID #60 tablet 07/28/17 Sertraline HCl [Zoloft -] 25 mg PO DAILY #30 tablet 07/28/17 Spironolactone [Aldactone -] 50 mg PO BID #60 tablet 07/28/17 Thiamine HCl [Vitamin B1] 100 mg PO DAILY #30 tablet 07/28/17 Triamcinolone 0.1% Ointment 1 applic TP BID #45 applic 07/28/17 [Aristocort 0.1% Ointment -] REVIEW OF SYSTEMS CONSTITUTIONAL: Present: generalized weakness, malaise, loss of appetite Absent: fever, chills, diaphoresis, weight change HEENT: Absent: rhinorrhea, nasal congestion, throat pain, throat swelling, difficulty swallowing, mouth swelling, ear pain, eye pain, visual changes CARDIOVASCULAR: Absent: chest pain, syncope, palpitations, irregular heart rate, lightheadedness , peripheral edema RESPIRATORY: Absent: cough, shortness of breath, dyspnea with exertion, orthopnea, wheezing, stridor, hemoptysis GASTROINTESTINAL: Present: hematochezia? Absent: abdominal pain, abdominal distension, nausea, vomiting, diarrhea, constipation, melena GENITOURINARY: Present: hematuria? Absent: dysuria, frequency, urgency, hesitancy, flank pain, genital pain MUSCULOSKELETAL: Absent: myalgia, arthralgia, joint swelling, back pain, neck pain SKIN: Absent: rash, itching, pallor HEMATOLOGIC/IMMUNOLOGIC: Absent: easy bleeding, easy bruising, lymphadenopathy, frequent infections ENDOCRINE: Absent: unexplained weight gain, unexplained weight loss, heat intolerance, cold intolerance NEUROLOGIC: Absent: headache, focal weakness or paresthesias, dizziness, unsteady gait, seizure, mental status changes, bladder or bowel incontinence PSYCHIATRIC: Absent: anxiety, depression, suicidal or homicidal ideation, hallucinations. PHYSICAL EXAMINATION Vital Signs - 24 hr 3 08/04/17 14:25 Temperature 97.6 F Pulse Rate 82 Respiratory 18 Rate Blood Pressure 155/76 O2 Sat by Pulse 96 Oximetry (%) GENERAL: Awake, alert, and fully oriented, in no acute distress. HEAD: Normal with no signs of trauma. EYES: Pupils equal, round and reactive to light, extraocular movements intact, sclera anicteric, conjunctiva clear. No lid lag. EARS, NOSE, THROAT: Ears normal, nares patent, oropharynx clear without exudates. Moist mucous membranes. NECK: Normal range of motion, supple without lymphadenopathy, JVD, or masses. LUNGS: Breath sounds equal, clear to auscultation bilaterally. No wheezes, and no crackles. No accessory muscle use. HEART: Regular rate and rhythm, normal S1 and S2 without murmur, rub or gallop. ABDOMEN: Soft, nontender, not distended, normoactive bowel sounds, no guarding, no rebound, no masses. No hepatomegaly or splenomegaly. MUSCULOSKELETAL: Normal range of motion at all joints. No bony deformities or tenderness. No CVA tenderness. UPPER EXTREMITIES: 2+ pulses, warm, well-perfused. No cyanosis. No clubbing. No peripheral edema. LOWER EXTREMITIES: 2+ pulses, warm, well-perfused. No calf tenderness. No peripheral edema. NEUROLOGICAL: Cranial nerves II-XII intact. Normal speech. Normal gait. PSYCHIATRIC: Cooperative. Good eye contact. Appropriate mood and affect. SKIN: Warm, dry, normal turgor, dry skin noted all over, + erythematous, scaly rash noted especially to abdomen, normal capillary refill. Laboratory Results - last 24 hr 3 08/04/17 08/04/17 08/04/17 15:00 15:35 15:35 WBC 6.6 RBC 3.21 L D Hgb 10.6 L D Hct 31.4 L D MCV 97.9 H MCH 33.0 MCHC 33.7 RDW 16.0 H Plt Count 87 L MPV 7.8 Neutrophils % 58.2 Lymphocytes % 27.1 D Monocytes % 10.4 H Eosinophils % 3.5 Basophils % 0.8 PT with INR 23.20 H INR 2.05 H Sodium Potassium Chloride Carbon Dioxide Anion Gap BUN Creatinine Creat Clearance w eGFR Random Glucose Calcium Total Bilirubin AST ALT Alkaline Phosphatase Ammonia Creatine Kinase Troponin I Total Protein Albumin Urine Color Urine Appearance Urine pH Ur Specific Arthur Urine Protein Urine Glucose (UA) Urine Ketones Urine Blood Urine Nitrite Urine Bilirubin Urine Urobilinogen Ur Leukocyte Esterase Urine WBC (Auto) Urine RBC (Auto) Hyaline Casts Urine Mucus Stool Occult Blood Negative Blood Type Antibody Screen 3 08/04/17 08/04/17 08/04/17 15:35 15:35 17:39 WBC RBC Hgb Hct MCV MCH MCHC RDW Plt Count MPV Neutrophils % Lymphocytes % Monocytes % Eosinophils % Basophils % PT with INR INR Sodium 138 Potassium 4.3 Chloride 97 L Carbon Dioxide 30 Anion Gap 11 BUN 12 D Creatinine 1.5 H D Creat Clearance w eGFR 48.77 Random Glucose 129 H Calcium 9.4 Total Bilirubin 5.2 H AST 54 H D ALT 16 D Alkaline Phosphatase 113 Ammonia 88.8 H Creatine Kinase 26 L Troponin I < 0.02 Total Protein 8.9 H D Albumin 2.9 L Urine Color Urine Appearance Urine pH Ur Specific Arthur Urine Protein Urine Glucose (UA) Urine Ketones Urine Blood Urine Nitrite Urine Bilirubin Urine Urobilinogen Ur Leukocyte Esterase Urine WBC (Auto) Urine RBC (Auto) Hyaline Casts Urine Mucus Stool Occult Blood Blood Type O POSITIVE Antibody Screen Negative 3 08/04/17 19:30 WBC RBC Hgb Hct MCV MCH MCHC RDW Plt Count MPV Neutrophils % Lymphocytes % Monocytes % Eosinophils % Basophils % PT with INR INR Sodium Potassium Chloride Carbon Dioxide Anion Gap BUN Creatinine Creat Clearance w eGFR Random Glucose Calcium Total Bilirubin AST ALT Alkaline Phosphatase Ammonia Creatine Kinase Troponin I Total Protein Albumin Urine Color Yellow Urine Appearance Clear Urine pH 6.0 Ur Specific Arthur 1.010 Urine Protein Negative Urine Glucose (UA) Negative Urine Ketones Negative Urine Blood 3+ H Urine Nitrite Negative Urine Bilirubin Negative Urine Urobilinogen Negative Ur Leukocyte Esterase Negative Urine WBC (Auto) 1 Urine RBC (Auto) 55 Hyaline Casts 1 Urine Mucus Rare Stool Occult Blood Blood Type Antibody Screen ASSESSMENT/PLAN: 52yM with PMH ESLD, alcoholic cirrhosis, esophageal varices, pancreatitis, depression, cellulitis/osteomyelitis L hand presented to the ED after noting blood in toilet. hematuria - Hgb stable - no indication of UTI, no WBC or bacteria on micro - repeat H/H in AM - consider urology consult outpt vs inpt, will defer to PCP Esophageal varices - pt reports normal brown BM later after episode of blood in toilet - guaiac negative for blood - no indication of active bleeding at present - cont monitoring hepatic encephalopathy due to ESLD/alcoholic cirrhosis - increase lactulose to QID - cont rifaximin - cont aldactone and lasix pancreatitis h/o - no pain , no indication of recurrence at presence, no further w/u indicated DVT PPX - deferred given expected LOS <48h FEN - concerned pt is dry, oral mucosa noted dry despite normal BUN, will start NS @ 50cc/hr x 24h - BMP in am - regular diet as tolerated Dispo: Pt requires further observation for management of his emergent condition. Visit type - Emergency Visit Emergency Visit: Yes ED Registration Date: 08/04/17 Care time: The patient presented to the Emergency Department on the above date and was hospitalized for further evaluation of their emergent condition. - New Patient This patient is new to me today: Yes Date on this admission: 08/04/17 - Critical Care Critical Care patient: No
[2017-08-05] MEDS ORDERED: LACTULOSE 20 GM/30 ML UDC (FOR ORAL USE ONLY) PO ONE ×2 (00:07→14:17)
[2017-08-05] MEDS ORDERED: SODIUM CHLORIDE 1,000 ML IV SCH (00:15)
[2017-08-05] MEDS: LACTULOSE 20 GM/30 ML UDC (FOR ORAL USE ONLY) PO SCH ×3 (06:16→20:05)
[2017-08-05 08:55] LABS: BASO % 1.5 % (0-2.0); EOS % 3.5 % (0-4.5); HEMATOCRIT 29.2 % (35.4-49); HEMOGLOBIN 9.8 GM/dL (11.7-16.9); LYMPH % 27.3 % (8-40); MCH 32.6 pg (25.7-33.7); MCHC 33.4 g/dl (32.0-35.9); MEAN CELL VOLUME 97.5 fl (80-96); MEAN PLT VOLUME 7.2 fl (7.5-11.1); MONO % 11.3 % (3.8-10.2); NEUT % 56.4 % (42.8-82.8); PLATELET COUNT 85 K/MM3 (134-434); RDW 15.7 % (11.9-15.9); WHITE BLOOD COUNT 7.3 K/mm3 (4.0-10.0)
[2017-08-05 09:40] LABS: ALBUMIN 2.8 g/dl (3.4-5.0); ALK PHOS 109 U/L (45-117); ANION GAP 10 (8-16); BILIRUBIN,TOTAL 5.1 mg/dL (0.2-1.0); BLOOD UREA NITROGEN 12 mg/dL (7-18); CALCIUM 9.4 mg/dL (8.5-10.1); CHLORIDE 97 mmol/L (98-107); CO2 31 mmol/L (21-32); CREATININE 1.5 mg/dL (0.7-1.3); GLUCOSE,RANDOM 109 mg/dL (74-106); MAGNESIUM 1.9 mg/dL (1.8-2.4); PHOSPHOROUS 3.5 mg/dL (2.5-4.9); POTASSIUM 3.8 mmol/L (3.5-5.1); SGOT/AST 56 U/L (15-37); SGPT/ALT 18 U/L (12-78); SODIUM 138 mmol/L (136-145); TOT PROT 8.7 g/dl (6.4-8.2)
[2017-08-05] MEDS ORDERED: SPIRONOLACTONE 25 MG TABLET (FP) PO SCH (10:00)
[2017-08-05] MEDS ORDERED: FUROSEMIDE 40 MG TABLET (FP) PO SCH (10:00)
[2017-08-05] MEDS ORDERED: oxyCODONE HCL 5 MG TABLET ONE (10:37)
[2017-08-05] MEDS: FOLIC ACID 1 MG TABLET (FP) PO SCH (11:10)
[2017-08-05] MEDS: MAGNESIUM OXIDE 400 MG TABLET (FP) PO SCH (11:11)
[2017-08-05] MEDS: KETOCONAZOLE 2 % SHAMPOO 120 ML BOTTLE TP SCH (11:12)
[2017-08-05] MEDS: MIDODRINE HCL 5 MG TABLET PO SCH ×3 (11:13→20:05)
[2017-08-05] MEDS: THIAMINE HCL 100 MG TABLET (FP) PO SCH (11:13)
[2017-08-05] MEDS: CYANOCOBALAMIN 1,000 MCG TABLET (FP) PO SCH (11:13)
[2017-08-05] MEDS: RIFAXIMIN 550 MG TABLET (UD) PO SCH (11:13)
[2017-08-05] MEDS: PANTOPRAZOLE 40 MG TABLET (FP) PO SCH (11:13)
[2017-08-05] MEDS: SERTRALINE HCL 25 MG TABLET (FP) PO SCH (11:14)
[2017-08-05] MEDS: oxyCODONE HCL 5 MG TABLET PO PRN (11:16)
--- NOTE | 2017-08-05 12:19 | PN ---
Progress Note, Physician Chief Complaint: Hematuria, Confusion, weakness History of Present Illness: Patient well known to us from the past liver cirrhosis 2/2 to alcohol abuse, incomplete rehab x 2 UA+3 blood UC pending received 2 doses of lactulose in the ER----> ammonia levels decreased to 29 from 88 refused standing dose of lactulose-encouraged not to do so, one time dose ordered for now -h/h stable stool ob negative - Current Medication List Current Medications: Active Medications Cyanocobalamin (Vitamin B12 -) 1,000 mcg PO DAILY [facility] Last Admin: 08/05/17 11:13 Dose: 1,000 mcg Folic Acid (Folic Acid -) 1 mg PO DAILY [facility] Last Admin: 08/05/17 11:10 Dose: 1 mg Furosemide (Lasix -) 40 mg PO DAILY [facility] Last Admin: 08/05/17 11:11 Dose: 40 mg Sodium Chloride (Normal Saline -) 1,000 mls @ 50 mls/hr IV ASDIR [facility] Stop: 08/06/17 00:14 Last Admin: 08/05/17 02:06 Dose: 50 mls/hr Ketoconazole (Nizoral 2% Shampoo -) 1 applic TP Q72H [facility] Last Admin: 08/05/17 11:12 Dose: Not Given Lactulose (Cephulac (Oral Use)) 20 gm PO Q6HPO [facility] Last Admin: 08/05/17 11:14 Dose: Not Given Magnesium Oxide (Mag-Ox -) 400 mg PO BID [facility] Last Admin: 08/05/17 11:11 Dose: 400 mg Midodrine (Proamatine -) 5 mg PO TID-MID [facility] Last Admin: 08/05/17 11:13 Dose: 5 mg Oxycodone HCl (Roxicodone -) 5 mg PO Q8H PRN PRN Reason: PAIN Last Admin: 08/05/17 11:16 Dose: 5 mg Pantoprazole Sodium (Protonix -) 40 mg PO DAILY [facility] Last Admin: 08/05/17 11:13 Dose: 40 mg Rifaximin (Xifaxan -) 550 mg PO BID [facility] Last Admin: 08/05/17 11:13 Dose: 550 mg Sertraline HCl (Zoloft -) 25 mg PO DAILY [facility] Last Admin: 08/05/17 11:14 Dose: 25 mg Spironolactone (Aldactone -) 50 mg PO BID [facility] Last Admin: 08/05/17 11:10 Dose: 50 mg Thiamine HCl (Vitamin B1 -) 100 mg PO DAILY [facility] Last Admin: 08/05/17 11:13 Dose: 100 mg - Objective Vital Signs: Vital Signs Temperature 98.6 F 08/05/17 09:10 Pulse Rate 91 H 08/05/17 09:10 Respiratory Rate 18 08/05/17 09:10 Blood Pressure 146/80 08/05/17 09:10 O2 Sat by Pulse Oximetry (%) 96 08/05/17 00:10 Constitutional: Yes: Well Nourished, No Distress, Calm, Other (icteric) Eyes: Yes: Sclera Icterus Cardiovascular: Yes: Regular Rate and Rhythm Respiratory: Yes: Regular Gastrointestinal: Yes: Ascites Genitourinary: Yes: Hematuria Musculoskeletal: Yes: Muscle Weakness Extremities: Yes: WNL Edema: Yes (BLLE) Peripheral Pulses WNL: Yes Integumentary: Yes: Rash (generalized diffuse psoriatic rash) Neurological: Yes: Alert, Oriented, Lethargy Psychiatric: Yes: Alert Labs: CBC, BMP 08/05/17 08:30 08/05/17 08:30 INR, PTT INR 2.05 (0.82-1.09) H 08/04/17 15:35 Problem List - Problems (1) Hematuria Assessment/Plan: UA/UC -Renal bladder U/S -Urology consult Code(s): R31.9 - HEMATURIA, UNSPECIFIED (2) Hepatic encephalopathy Assessment/Plan: -lactulose Q6H -goal to have 2-3 BM's daily -GI consult Code(s): K72.90 - HEPATIC FAILURE, UNSPECIFIED WITHOUT COMA (3) Acute kidney injury Assessment/Plan: -IVF -Nephrology consult Code(s): N17.9 - ACUTE KIDNEY FAILURE, UNSPECIFIED (4) Alcoholic cirrhosis Code(s): K70.30 - ALCOHOLIC CIRRHOSIS OF LIVER WITHOUT ASCITES Qualifiers: Ascites presence: with ascites Qualified Code(s): K70.31 - Alcoholic cirrhosis of liver with ascites (5) Anemia Assessment/Plan: -monitor H/H -guaiac all stools Code(s): D64.9 - ANEMIA, UNSPECIFIED Qualifiers: Anemia type: unspecified type Qualified Code(s): D64.9 - Anemia, unspecified Assessment/Plan see problem list
--- NOTE | 2017-08-05 12:30 | EKG ---
Test Reason : Blood Pressure : / mmHG Vent. Rate : 086 BPM Atrial Rate : 086 BPM P-R Int : 156 ms QRS Dur : 094 ms QT Int : 420 ms P-R-T Axes : 047 -02 034 degrees QTc Int : 502 ms NORMAL SINUS RHYTHM CANNOT RULE OUT INFERIOR INFARCT , AGE UNDETERMINED PROLONGED QT ABNORMAL ECG WHEN COMPARED WITH ECG OF 25-JUL-2017 06:44, MINIMAL CRITERIA FOR INFERIOR INFARCT ARE NOW PRESENT Confirmed by SO WOODWARD, DAVID ([id number]) on 08/05/2017 12:29:51 PM Referred By: Confirmed By:DAVID RIZZO MD
--- NOTE | 2017-08-05 14:34 | CON.GI ---
Consult Consult Specialty:: GI: Dr. Shell for Dr. Craig Referred by:: Francisco J Noyola NP Reason for Consultation:: Rectal bleed - History of Present Illness Chief Complaint: I saw blood in the toilet bowl History of Present Illness: 52M admitted for evaluation after he saw light red blood in the toilet bowl after a bowel movement. He has a stable anemia and there has been no repeat bleediong. He does recall straining prior to seeing blood in the toilet. There were no clots reported and he denies associated abdominal pain / diarrhea. 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 He has had multiple hospitalizations ans was recently discharged 07/28. he states that since his last discharge he may have drank some beer. He has been delisted from liver transplant list at [facility] given repeated non compliance with alcohol abstinence. He underwent repeat EGD at that time that led to banding of varices. On his previous admissions he was thoroughly counseled about the problems with continued alcohol consumption including continued liver decompensation and . His main complaint is "pain at his coccyx that radiates to his pelvis bone". - History Source History Provided By: Patient - Past Medical History Cardio/Vascular: Yes: HTN Gastrointestinal: Yes: Ascites Hepatobiliary: Yes: Cirrhosis (Alcohol induced, decompensated), Other (History of severe alcoholic hepatitis, hepatic encephalopathy) Psych: Yes: Depression Musculoskeletal: Yes: Other (Cellulitis and tenosynovitis +/- osteomyelitis 3rd/ 4th digit of left hand) Dermatology: Yes: Cellulitis (of LE and of hand), Psoriasis - Alcohol/Substance Use Hx Alcohol Use: Yes (vodka 1 pint daily) History of Substance Use: reports: None - Smoking History Smoking history: Never smoked Have you smoked in the past 12 months: No - Social History Usual Living Arrangement: With Significant Other (two teenage daughters) ADL: Independent Occupation: disabled History of Recent Travel: No Home Medications - Allergies Allergies/Adverse Reactions: Allergies Allergy/AdvReac Type Severity Reaction Status Date / Time No Known Allergies Allergy Verified 07/22/17 13:49 - Home Medications Home Medications: Ambulatory Orders Folic Acid - 1 mg PO DAILY #30 tablet 06/23/17 Midodrine HCl [Proamatine -] 5 mg PO TID-MID tablet 07/20/17 Betamethasone Dipropionate [Diprosone 0.05% Ointment -] 1 applic TP BID #1 tube 07/28/17 Cyanocobalamin [Vitamin B12 -] 100 mcg PO DAILY #30 tablet 07/28/17 Diazepam [Valium] 5 mg PO HS #30 tablet MDD 1 07/28/17 Furosemide [Lasix -] 40 mg PO DAILY #30 tablet 07/28/17 Ketoconazole 2% Shampoo [Nizoral 2% Shampoo -] 1 applic TP Q72H #1 bottle Lactulose (Oral Use) [Cephulac -] 20 gm PO TID #2700 ml 07/28/17 Magnesium Oxide [Mag-Ox -] 400 mg PO BID #60 tablet 07/28/17 Ondansetron [Zofran -] 4 mg PO Q6HPO PRN #120 tablet 07/28/17 Oxycodone HCl [Roxicodone -] 5 mg PO TID PRN #90 tablet MDD 3 07/28/17 Pantoprazole Sodium [Protonix -] 40 mg PO DAILY #30 tablet.ec 07/28/17 Rifaximin [Xifaxan -] 550 mg PO BID #60 tablet 07/28/17 Sertraline HCl [Zoloft -] 25 mg PO DAILY #30 tablet 07/28/17 Spironolactone [Aldactone -] 50 mg PO BID #60 tablet 07/28/17 Thiamine HCl [Vitamin B1] 100 mg PO DAILY #30 tablet 07/28/17 Triamcinolone 0.1% Ointment [Aristocort 0.1% Ointment -] 1 applic TP BID #45 applic 07/28/17 Family Disease History - Family Disease History Family Disease History: Other: Grandparent Review of Systems - Review of Systems Constitutional: denies: Chills, Fever Cardiovascular: denies: Chest Pain Respiratory: denies: SOB Gastrointestinal: reports: Constipation, Rectal Bleeding. denies: Abdominal Pain, Bloating, Diarrhea, Dysphagia, Melena, Vomiting, Vomiting Blood Physical Exam-GI Vital Signs: Vital Signs Temperature 98.3 F 08/05/17 13:58 Pulse Rate 83 08/05/17 13:58 Respiratory Rate 17 08/05/17 13:58 Blood Pressure 134/75 08/05/17 13:58 O2 Sat by Pulse Oximetry (%) 96 08/05/17 13:58 Constitutional: Yes: Calm Eyes: No: Sclera Icterus Cardiovascular: Yes: Regular Rate and Rhythm. No: Murmur Respiratory: Yes: CTA Bilaterally Gastrointestinal Inspection: No: Distention ...Auscultate: Yes: Normoactive Bowel Sounds ...Palpate: No: Hepatomegaly, Splenomegaly, Tenderness ...Percussion: No: Tympanitic ...Rectal Exam: Yes: Other (No external lesions, no masses, light quarles stool, guaiac negative) Edema: Yes (trace LE edema) Integumentary: Yes: Other (extensive psoriatic plaques along his body) Neurological: Yes: Alert, Oriented. No: Asterix[employer] Labs: CBC, BMP 08/05/17 08:30 08/05/17 08:30 INR, PTT INR 2.05 (0.82-1.09) H 08/04/17 15:35 Hepatic Panel Total Bilirubin 5.1 mg/dL (0.2-1.0) H 08/05/17 08:30 AST 56 U/L (15-37) H 08/05/17 08:30 ALT 18 U/L (12-78) 08/05/17 08:30 Alkaline Phosphatase 109 U/L (45-117) 08/05/17 08:30 Albumin 2.8 g/dl (3.4-5.0) L 08/05/17 08:30 Problem List - Problems (1) Bleeding Assessment/Plan: Suspect possible hemorrhoidal irritation from straining given description of events There has been no further bleeding, he is guaiac negative from a specimen sent from ER and on my exam today. he is also being evaluated by Primary team for ? hematuria From GI standpoint: Continue Rifaximin 550mg PO BID Anusol suppository 1 HI daily for 3 days Lactulose 20g once to twice daily to facilitate 3-4 loose BM's per day. 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 Michelle Barajas at [facility]. Recall as needed Code(s): R58 - HEMORRHAGE, NOT ELSEWHERE CLASSIFIED
[2017-08-05 20:15] VITALS: BMI 29.4
[2017-08-06] MEDS: MAGNESIUM OXIDE 400 MG TABLET (FP) PO SCH ×3 (00:03→21:59)
[2017-08-06] MEDS: LACTULOSE 20 GM/30 ML UDC (FOR ORAL USE ONLY) PO SCH ×4 (00:04→18:04)
[2017-08-06] MEDS: RIFAXIMIN 550 MG TABLET (UD) PO SCH ×3 (00:04→21:59)
[2017-08-06] MEDS: SPIRONOLACTONE 25 MG TABLET (FP) PO SCH ×3 (00:04→21:59)
[2017-08-06] MEDS: oxyCODONE HCL 5 MG TABLET PO PRN ×2 (00:04→10:56)
[2017-08-06] MEDS: LACTATED RINGERS SOLUTION 1,000 ML/1,000 ML INFUS.BAG IV SCH ×3 (00:05→21:58)
--- NOTE | 2017-08-06 09:03 | CON.GU ---
Consult Consult Specialty:: urology Referred by:: amador Reason for Consultation:: hematuria - History of Present Illness Chief Complaint: hematuria History of Present Illness: Patient is a 52 year old male with history of cirrhosis and encephelopathy who has 3+ microscopic hematuria and a question of gross hematuria. The patient is unsure of the gross hematuria as he had fallen at the time of the episode. The patient denies nausea, vomiting, fever, chills, history of stones or previous urologic procedure. The patient is a poor historian. - History Source History Provided By: Patient, Medical Record Limitations to Obtaining History: Poor Historian - Past Medical History Cardio/Vascular: Yes: HTN Gastrointestinal: Yes: Ascites Hepatobiliary: Yes: Cirrhosis (Alcohol induced, decompensated), Other (History of severe alcoholic hepatitis, hepatic encephalopathy) Psych: Yes: Depression Musculoskeletal: Yes: Other (Cellulitis and tenosynovitis +/- osteomyelitis 3rd/ 4th digit of left hand) Dermatology: Yes: Cellulitis (of LE and of hand), Psoriasis - Alcohol/Substance Use Hx Alcohol Use: Yes (vodka 1 pint daily) History of Substance Use: reports: None - Smoking History Smoking history: Never smoked Have you smoked in the past 12 months: No - Social History Usual Living Arrangement: With Significant Other (two teenage daughters) ADL: Independent Occupation: disabled History of Recent Travel: No Home Medications - Allergies Allergies/Adverse Reactions: Allergies Allergy/AdvReac Type Severity Reaction Status Date / Time No Known Allergies Allergy Verified 07/22/17 13:49 - Home Medications Home Medications: Ambulatory Orders Folic Acid - 1 mg PO DAILY #30 tablet 06/23/17 Midodrine HCl [Proamatine -] 5 mg PO TID-MID tablet 07/20/17 Betamethasone Dipropionate [Diprosone 0.05% Ointment -] 1 applic TP BID #1 tube 07/28/17 Cyanocobalamin [Vitamin B12 -] 100 mcg PO DAILY #30 tablet 07/28/17 Diazepam [Valium] 5 mg PO HS #30 tablet MDD 1 07/28/17 Furosemide [Lasix -] 40 mg PO DAILY #30 tablet 07/28/17 Ketoconazole 2% Shampoo [Nizoral 2% Shampoo -] 1 applic TP Q72H #1 bottle Lactulose (Oral Use) [Cephulac -] 20 gm PO TID #2700 ml 07/28/17 Magnesium Oxide [Mag-Ox -] 400 mg PO BID #60 tablet 07/28/17 Ondansetron [Zofran -] 4 mg PO Q6HPO PRN #120 tablet 07/28/17 Oxycodone HCl [Roxicodone -] 5 mg PO TID PRN #90 tablet MDD 3 07/28/17 Pantoprazole Sodium [Protonix -] 40 mg PO DAILY #30 tablet.ec 07/28/17 Rifaximin [Xifaxan -] 550 mg PO BID #60 tablet 07/28/17 Sertraline HCl [Zoloft -] 25 mg PO DAILY #30 tablet 07/28/17 Spironolactone [Aldactone -] 50 mg PO BID #60 tablet 07/28/17 Thiamine HCl [Vitamin B1] 100 mg PO DAILY #30 tablet 07/28/17 Triamcinolone 0.1% Ointment [Aristocort 0.1% Ointment -] 1 applic TP BID #45 applic 07/28/17 Family Disease History - Family Disease History Family Disease History: Other: Grandparent Physical Exam- Vital Signs: Vital Signs Temperature 98.4 F 08/06/17 06:00 Pulse Rate 83 08/06/17 06:00 Respiratory Rate 20 08/06/17 06:00 Blood Pressure 148/69 08/06/17 06:00 O2 Sat by Pulse Oximetry (%) 96 08/06/17 00:00 Constitutional: Yes: Anxious, [place] Eyes: Yes: WNL, Conjunctiva Clear, EOM Intact HENT: Yes: WNL, Atraumatic Neck: Yes: WNL, Supple, Trachea Midline Cardiovascular: Yes: Regular Rate and Rhythm Respiratory: Yes: WNL, Regular Gastrointestinal: Yes: WNL, Normal Bowel Sounds, Soft Renal/: Yes: WNL Kidneys: Yes: WNL Pelvis: Yes: Bladder Non Palpable Testicles: Yes: WNL Scrotum: Yes: WNL Penis: Yes: WNL Prostate Exam: Yes: Asymmetrical, Firm Labs: CBC, BMP 08/05/17 08:30 08/05/17 08:30 Assessment/Plan impression gross hematuria encephelopathy cirrhosis renal insufficiency plan ultrasound reports could not be accessed. Will call radiology today to access the report. I will schedule the patient for cystoscopy and bilateral retrograde pyelogram for Wednesday if he is cleared and still an inpatient. Otherwise this will be scheduled as an outpatient. Patient ideally would require a CT scan with and without contrast however his renal function is borderline for IV contrast.
--- NOTE | 2017-08-06 10:36 | PN ---
Progress Note, Physician Chief Complaint: Hematuria, Confusion, weakness History of Present Illness: Patient well known to us from the past liver cirrhosis 2/2 to alcohol abuse, incomplete rehab x 2 UA+3 blood UC pending received 2 doses of lactulose in the ER----> ammonia levels decreased to 29 from 88 refused standing dose of lactulose-encouraged not to do so, one time dose ordered for now -h/h stable stool ob negative - Current Medication List Current Medications: Active Medications Cyanocobalamin (Vitamin B12 -) 1,000 mcg PO DAILY COUNT INCLUDES [facility] Last Admin: 08/05/17 11:13 Dose: 1,000 mcg Folic Acid (Folic Acid -) 1 mg PO DAILY COUNT INCLUDES [facility] Last Admin: 08/05/17 11:10 Dose: 1 mg Furosemide (Lasix -) 20 mg PO DAILY COUNT INCLUDES [facility] Lactated Ringer's (Lactated Ringers Solution) 1,000 ml in 1,000 mls @ 42 mls/ hr IV ASDIR COUNT INCLUDES [facility] Last Admin: 08/06/17 00:05 Dose: 42 mls/hr Ketoconazole (Nizoral 2% Shampoo -) 1 applic TP Q72H COUNT INCLUDES [facility] Last Admin: 08/05/17 11:12 Dose: Not Given Lactulose (Cephulac (Oral Use)) 20 gm PO Q6HPO COUNT INCLUDES [facility] Last Admin: 08/06/17 06:49 Dose: 20 gm Magnesium Oxide (Mag-Ox -) 400 mg PO BID COUNT INCLUDES [facility] Last Admin: 08/06/17 00:03 Dose: 400 mg Midodrine (Proamatine -) 5 mg PO TID-MID COUNT INCLUDES [facility] Last Admin: 08/05/17 20:05 Dose: Not Given Oxycodone HCl (Roxicodone -) 5 mg PO Q8H PRN PRN Reason: PAIN Last Admin: 08/06/17 00:04 Dose: 5 mg Pantoprazole Sodium (Protonix -) 40 mg PO DAILY COUNT INCLUDES [facility] Last Admin: 08/05/17 11:13 Dose: 40 mg Rifaximin (Xifaxan -) 550 mg PO BID COUNT INCLUDES [facility] Last Admin: 08/06/17 00:04 Dose: 550 mg Sertraline HCl (Zoloft -) 25 mg PO DAILY COUNT INCLUDES [facility] Last Admin: 08/05/17 11:14 Dose: 25 mg Spironolactone (Aldactone -) 25 mg PO BID COUNT INCLUDES [facility] Last Admin: 08/06/17 00:04 Dose: 25 mg Thiamine HCl (Vitamin B1 -) 100 mg PO DAILY COUNT INCLUDES [facility] Last Admin: 08/05/17 11:13 Dose: 100 mg - Objective Vital Signs: Vital Signs Temperature 97.9 F 08/06/17 09:30 Pulse Rate 83 08/06/17 09:30 Respiratory Rate 18 08/06/17 09:30 Blood Pressure 149/77 08/06/17 09:30 O2 Sat by Pulse Oximetry (%) 96 08/06/17 00:00 Constitutional: Yes: Well Nourished, No Distress, Calm Cardiovascular: Yes: Regular Rate and Rhythm Respiratory: Yes: Regular Musculoskeletal: Yes: WNL Extremities: Yes: WNL Edema: Yes Edema: LLE: Trace, RLE: Trace Peripheral Pulses WNL: Yes Integumentary: Yes: Rash (diffuse psoriattic rash) Neurological: Yes: Alert, Oriented, Lethargy Psychiatric: Yes: Alert, Oriented Labs: CBC, BMP 08/05/17 08:30 08/05/17 08:30 INR, PTT INR 2.05 (0.82-1.09) H 08/04/17 15:35 Problem List - Problems (1) Hematuria Assessment/Plan: UA +3 blood -UC preliminary negative -Renal bladder U/S unremarkable -Urology consult appreciated Code(s): R31.9 - HEMATURIA, UNSPECIFIED (2) Hepatic encephalopathy Assessment/Plan: -lactulose Q6H -goal to have 3-4 BM's daily -GI consult appreciated Code(s): K72.90 - HEPATIC FAILURE, UNSPECIFIED WITHOUT COMA (3) Acute kidney injury Assessment/Plan: -gentle IVF -Nephrology consult -labs today Code(s): N17.9 - ACUTE KIDNEY FAILURE, UNSPECIFIED (4) Alcoholic cirrhosis Code(s): K70.30 - ALCOHOLIC CIRRHOSIS OF LIVER WITHOUT ASCITES Qualifiers: Ascites presence: with ascites Qualified Code(s): K70.31 - Alcoholic cirrhosis of liver with ascites (5) Anemia Assessment/Plan: -monitor H/H -guaiac all stools -repeat labs today Code(s): D64.9 - ANEMIA, UNSPECIFIED Qualifiers: Anemia type: unspecified type Qualified Code(s): D64.9 - Anemia, unspecified Assessment/Plan see problem list physical therapy
[2017-08-06] MEDS ORDERED: PT OWN MED DRAWER 7, Y5N ONE ×2 (10:48→11:58)
[2017-08-06] MEDS: CYANOCOBALAMIN 1,000 MCG TABLET (FP) PO SCH (10:55)
[2017-08-06] MEDS: FOLIC ACID 1 MG TABLET (FP) PO SCH (10:55)
[2017-08-06] MEDS: THIAMINE HCL 100 MG TABLET (FP) PO SCH (10:55)
[2017-08-06] MEDS: SERTRALINE HCL 25 MG TABLET (FP) PO SCH (10:55)
[2017-08-06] MEDS: PANTOPRAZOLE 40 MG TABLET (FP) PO SCH (10:55)
[2017-08-06] MEDS: FUROSEMIDE 20 MG TABLET (FP) PO SCH (10:55)
[2017-08-06] MEDS: MIDODRINE HCL 5 MG TABLET PO SCH ×3 (10:56→18:04)
[2017-08-06 11:25] LABS: EOS % 4.6 % (0-4.5); HEMATOCRIT 25.8 % (35.4-49); HEMOGLOBIN 8.6 GM/dL (11.7-16.9); LYMPH % 28.4 % (8-40); MCH 32.4 pg (25.7-33.7); MCHC 33.3 g/dl (32.0-35.9); MEAN CELL VOLUME 97.3 fl (80-96); MEAN PLT VOLUME 7.5 fl (7.5-11.1); MONO % 12.9 % (3.8-10.2); NEUT % 53.1 % (42.8-82.8); PLATELET COUNT 72 K/MM3 (134-434); RBC 2.65 M/mm3 (4.00-5.60); RDW 15.3 % (11.9-15.9); WHITE BLOOD COUNT 6.5 K/mm3 (4.0-10.0)
[2017-08-06 11:44] LABS: ALBUMIN 2.6 g/dl (3.4-5.0); ANION GAP 8 (8-16); BILIRUBIN,TOTAL 4.8 mg/dL (0.2-1.0); BLOOD UREA NITROGEN 13 mg/dL (7-18); CALCIUM 8.9 mg/dL (8.5-10.1); CHLORIDE 99 mmol/L (98-107); CO2 31 mmol/L (21-32); CREATININE 1.4 mg/dL (0.7-1.3); GLUCOSE,RANDOM 130 mg/dL (74-106); SGOT/AST 49 U/L (15-37); SGPT/ALT 18 U/L (12-78); SODIUM 138 mmol/L (136-145); TOT PROT 7.6 g/dl (6.4-8.2)
[2017-08-06 11:45] LABS: ALK PHOS 95 U/L (45-117)
--- NOTE | 2017-08-06 14:28 | CONSULT ---
Consultation: REQUESTING PROVIDER: CONSULT REQUEST: We have been asked to medically evaluate this patient for elevated creat. HISTORY OF PRESENT ILLNESS: This is a 52 yo M with PMH of alcohol cirrhosis/ascites, liver failure, encephalopathy, varices, psoriasis, and depression, last dcd from [facility] 07/28/17 , who presented to ED with zoraida hematuria x 3 days as well as increased confusion and weakness over the past week. He has not been able to ambulate due to weakness. He denies f/c, n/v, dysuria, pelvic pain, increased LE edema or ascites. He denies polyuria or oliguria. He denies blood clots in urine. This has not happened before. He has been sober for a month. He reports some diarrhea due to lactulose. 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 His jaundice is at baseline. He reports lumbar pain x 3 weeks due to fall. During his last admission he underwent EGD that led to banding of varices. Patients reports negative hepatitis and HIV tests at another hospital a year ago. On admission patient found to have bun/creat 12/1.5 from 1.2 on last d/c. PAST SURGICAL HISTORY: pt denies any prior surgeries Social History: Smoking: pt denies Alcohol: pt reports last Etoh was prior to his hospitalization for pancreatitis Drugs: pt denies Family History: mother alive and well father age 97, Alzheimer's disease sister without medical problems Allergies No Known Allergies Allergy (Verified 07/22/17 13:49) REVIEW OF SYSTEMS: CONSTITUTIONAL: Absent: fever, chills, diaphoresis, weight change HEENT: Absent: rhinorrhea, nasal congestion, throat pain, throat swelling, difficulty swallowing CARDIOVASCULAR: Absent: chest pain, syncope, palpitations, irregular heart rate RESPIRATORY: Absent: cough, shortness of breath, orthopnea GASTROINTESTINAL: Absent: abdominal pain, abdominal distension, nausea, vomiting, constipation GENITOURINARY: Absent: dysuria, frequency, urgency, hesitancy, flank pain, genital pain MUSCULOSKELETAL: Absent: myalgia, arthralgia SKIN: Absent:pallor HEMATOLOGIC/IMMUNOLOGIC: Absent: lymphadenopathy, frequent infections ENDOCRINE: Absent: unexplained weight gain, unexplained weight loss, heat intolerance, cold intolerance NEUROLOGIC: Absent: headache, focal weakness or paresthesias PSYCHIATRIC: Absent: anxiety, depression PHYSICAL EXAMINATION Vital Signs - 24 hr 01/04/18 01/04/18 01/04/18 16:00 17:00 19:00 Temperature 98.6 F 97.4 F L 97.4 F L Pulse Rate 98 H 98 H 108 H Respiratory 18 18 18 Rate Blood Pressure 140/85 140/83 151/83 O2 Sat by Pulse 96 96 Oximetry (%) 08/05/17 08/06/17 08/06/17 23:00 00:00 06:00 Temperature 98.4 F Pulse Rate 94 H 83 Respiratory 20 20 20 Rate Blood Pressure 140/70 148/69 O2 Sat by Pulse 96 Oximetry (%) 08/06/17 09:30 Temperature 97.9 F Pulse Rate 83 Respiratory 18 Rate Blood Pressure 149/77 O2 Sat by Pulse Oximetry (%) GENERAL: Awake, alert, and fully oriented, in no acute distress. HEAD: Normal with no signs of trauma. EYES: Pupils equal, round and reactive to light, extraocular movements intact, sclera anicteric, conjunctiva clear. No lid lag. EARS, NOSE, THROAT: Moist mucous membranes. NECK: supple without JVD LUNGS: Breath sounds equal, clear to auscultation bilaterally. HEART: Regular rate and rhythm, normal S1 and S2 ABDOMEN: Soft, nontender, not distended, normoactive bowel sounds, no guarding, no rebound, no masses. No fluid wave MUSCULOSKELETAL: No CVA tenderness. UPPER EXTREMITIES: 2+ pulses, warm, well-perfused. No peripheral edema. LOWER EXTREMITIES: 1+ pulses, warm, well-perfused. No calf tenderness. 1+ peripheral edema. NEUROLOGICAL: Cranial nerves II-XII grossly intact. slurred speech. PSYCHIATRIC: Cooperative. Good eye contact. Appropriate mood and affect. SKIN: Warm, dry, decreased turgor, diffuse scaling rash Laboratory Results - last 24 hr 08/06/17 08/06/17 08/06/17 10:56 10:56 10:56 WBC 6.5 RBC 2.65 L Hgb 8.6 L D Hct 25.8 L MCV 97.3 H MCH 32.4 MCHC 33.3 RDW 15.3 Plt Count 72 L MPV 7.5 Neutrophils % 53.1 Lymphocytes % 28.4 Monocytes % 12.9 H Eosinophils % 4.6 H Basophils % 1.0 Sodium 138 Potassium 4.0 Chloride 99 Carbon Dioxide 31 Anion Gap 8 BUN 13 Creatinine 1.4 H Creat Clearance w eGFR 52.81 Random Glucose 130 H Calcium 8.9 Total Bilirubin 4.8 H AST 49 H ALT 18 Alkaline Phosphatase 95 Ammonia 40.87 H Total Protein 7.6 Albumin 2.6 L Hepatitis C Antibody 08/06/17 13:20 WBC RBC Hgb Hct MCV MCH MCHC RDW Plt Count MPV Neutrophils % Lymphocytes % Monocytes % Eosinophils % Basophils % Sodium Potassium Chloride Carbon Dioxide Anion Gap BUN Creatinine Creat Clearance w eGFR Random Glucose Calcium Total Bilirubin AST ALT Alkaline Phosphatase Ammonia Total Protein Albumin Hepatitis C Antibody Cancelled Active Medications Generic Name Dose Route Start Last Admin Trade Name Freq PRN Reason Stop Dose Admin Cyanocobalamin 1,000 mcg 08/05/17 10:00 08/06/17 10:55 Vitamin B12 - PO 1,000 mcg DAILY [facility] Administration Folic Acid 1 mg 08/05/17 10:00 08/06/17 10:55 Folic Acid - PO 1 mg DAILY [facility] Administration Furosemide 20 mg 08/06/17 10:00 08/06/17 10:55 Lasix - PO 20 mg DAILY [facility] Administration Lactated Ringer's 1,000 ml in 1,000 mls @ 42 mls/hr 08/05/17 14:30 08/06/17 00:05 Lactated Ringers Solution IV 42 mls/hr ASDIR [facility] Administration Ketoconazole 1 applic 08/05/17 10:00 08/05/17 11:12 Nizoral 2% Shampoo - TP Not Given Q72H [facility] Lactulose 20 gm 08/05/17 06:00 08/06/17 12:02 Cephulac (Oral Use) PO 20 gm Q6HPO [facility] Administration Magnesium Oxide 400 mg 08/05/17 10:00 08/06/17 10:55 Mag-Ox - PO 400 mg BID [facility] Administration Midodrine 5 mg 08/05/17 10:00 08/06/17 10:56 Proamatine - PO Not Given TID-MID [facility]ANITA Oxycodone HCl 5 mg 08/05/17 00:15 08/06/17 10:56 Roxicodone - PO 5 mg Q8H PRN Administration PAIN Pantoprazole Sodium 40 mg 08/05/17 10:00 08/06/17 10:55 Protonix - PO 40 mg DAILY [facility] Administration Rifaximin 550 mg 08/05/17 10:00 01/05/18 10:55 Xifaxan - PO 550 mg BID [facility] Administration Sertraline HCl 25 mg 08/05/17 10:00 08/06/17 10:55 Zoloft - PO 25 mg DAILY [facility] Administration Spironolactone 25 mg 08/05/17 22:00 08/06/17 10:55 Aldactone - PO 25 mg BID [facility] Administration Thiamine HCl 100 mg 08/05/17 10:00 08/06/17 10:55 Vitamin B1 - PO 100 mg DAILY [facility] Administration ASSESSMENT/PLAN: This is a 52 yo M with PMH of alcohol cirrhosis/ascites, liver failure, encephalopathy, varices, psoriasis, and depression, last dcd from [facility] 07/28/17 , who presented to ED with zoraida hematuria x 3 days as well as increased confusion and weakness over the past week. Zoraida Hematuria -3+ blood ua -r/o bleeding bladder lesion in setting of coagulopathy (INR 2, thrombocytopenia 70) from liver disease; f/u cystoscopy by urology on Mon -will f/u natali, anca, anti gbm, anti ds dna, hepatitis and hiv panels, complement levels Anemia -worsening from 10.6 to 8.5 -guaiac negative -due to hematuria -trend h/h, r/o urological secondary causes Slight creat elevation -bun/creat 12/1.5 from 1.2 baseline -may be due to diuresis, on daily lasix 20, aldactone 25 bid; will trend renal function and not alter diuresis at this time -patients volume status is improved from last admission, edema significantly better -PO hydration -Na restriction -avoid nephrotoxic agents Cirrhotic liver disease -stable at this time -continue daily meds -recommendation per GI Dispo: We will continue to follow the patient. Thank you for this consultative opportunity. Problem List - Problems (1) Bleeding Code(s): R58 - HEMORRHAGE, NOT ELSEWHERE CLASSIFIED (2) Hematuria Code(s): R31.9 - HEMATURIA, UNSPECIFIED (3) Hepatic encephalopathy Code(s): K72.90 - HEPATIC FAILURE, UNSPECIFIED WITHOUT COMA (4) Alcohol abuse Code(s): F10.10 - ALCOHOL ABUSE, UNCOMPLICATED (5) Anemia Code(s): D64.9 - ANEMIA, UNSPECIFIED Qualifiers: Anemia type: unspecified type Qualified Code(s): D64.9 - Anemia, unspecified (6) Coagulopathy Code(s): D68.9 - COAGULATION DEFECT, UNSPECIFIED (7) Jaundice Code(s): R17 - UNSPECIFIED JAUNDICE (8) Liver cirrhosis Code(s): K74.60 - UNSPECIFIED CIRRHOSIS OF LIVER Qualifiers: Hepatic cirrhosis type: alcoholic cirrhosis Ascites presence: with ascites Qualified Code(s): K70.31 - Alcoholic cirrhosis of liver with ascites (9) Thrombocytopenia Code(s): D69.6 - THROMBOCYTOPENIA, UNSPECIFIED Visit type - Emergency Visit Emergency Visit: Yes ED Registration Date: 08/04/17 Care time: The patient presented to the Emergency Department on the above date and was hospitalized for further evaluation of their emergent condition. - New Patient This patient is new to me today: Yes Date on this admission: 08/06/17 - Critical Care Critical Care patient: No
--- NOTE | 2017-08-06 15:29 | PN ---
Teaching Attending Note Name of Resident: Lorri Elizondo (Nephrology) ATTENDING PHYSICIAN STATEMENT I saw and evaluated the patient. I reviewed the resident's note and discussed the case with the resident. I agree with the resident's findings and plan as documented. SUBJECTIVE: This is a 52 year old gentleman well known to our service with PMhx of alocholic liver cirrhosis, CKD (hepato-renal syndrome), Depression, Psoriasis who presented with gross hematuria x 3 day at home. PMhx: as above Allergies: NKDA Family Hx: NC Social Hx: Sober for 1 month ROS: no fever, chills, sob, chest pain, abd pain, N/V/D. Poor oral intake per . + dizziness/weaknss. Home Medications Medication Instructions Recorded Folic Acid - 1 mg PO DAILY #30 tablet 06/23/17 Midodrine HCl [Proamatine -] 5 mg PO TID-MID tablet 07/20/17 Betamethasone Dipropionate 1 applic TP BID #1 tube 07/28/17 [Diprosone 0.05% Ointment -] Cyanocobalamin [Vitamin B12 -] 100 mcg PO DAILY #30 tablet 07/28/17 Diazepam [Valium] 5 mg PO HS #30 tablet MDD 1 07/28/17 Furosemide [Lasix -] 40 mg PO DAILY #30 tablet 07/28/17 Ketoconazole 2% Shampoo [Nizoral 1 applic TP Q72H #1 bottle 07/28/17 2% Shampoo -] Lactulose (Oral Use) [Cephulac -] 20 gm PO TID #2700 ml 07/28/17 Magnesium Oxide [Mag-Ox -] 400 mg PO BID #60 tablet 07/28/17 Ondansetron [Zofran -] 4 mg PO Q6HPO PRN #120 tablet 07/28/17 Oxycodone HCl [Roxicodone -] 5 mg PO TID PRN #90 tablet MDD 3 07/28/17 Pantoprazole Sodium [Protonix -] 40 mg PO DAILY #30 tablet.ec 07/28/17 Rifaximin [Xifaxan -] 550 mg PO BID #60 tablet 07/28/17 Sertraline HCl [Zoloft -] 25 mg PO DAILY #30 tablet 07/28/17 Spironolactone [Aldactone -] 50 mg PO BID #60 tablet 07/28/17 Thiamine HCl [Vitamin B1] 100 mg PO DAILY #30 tablet 07/28/17 Triamcinolone 0.1% Ointment 1 applic TP BID #45 applic 07/28/17 [Aristocort 0.1% Ointment -] OBJECTIVE: Vital Signs Temperature 97.8 F 08/06/17 14:20 Pulse Rate 86 08/06/17 14:20 Respiratory Rate 18 08/06/17 14:20 Blood Pressure 102/54 08/06/17 14:20 O2 Sat by Pulse Oximetry (%) 96 08/06/17 00:00 NAD, awake and alert slowed speech neck supple, no JVD RRR soft NT/ND, Minimal ascities No sacral edema, trace LE edema CBC, BMP 08/06/17 10: 08/06/17 10:56 ASSESSMENT AND PLAN: 52 year old gentleman well known to our service with PMhx of alocholic liver cirrhosis, CKD (hepato-renal syndrome), Depression, Psoriasis who presented with gross hematuria x 3 day at home. #Gross Hematuria will need Cysto per Urology will check serologic studies for GN although less likely #CKD Cr slightly above baseline but no in acute injury decreased Lasix dose given improved edema and weight + dizziness Trend BUN/cr check urine for UPCR continue salt and fluid restriction #Cirrhosis GI following supportive care #Anemia related to hematuria? trend CBC Transfuse as needed check iron studies #dizziness/weaknss Check orthostatics on lower dose of lasix Thank you Will follow Ronaldo Gonzalez Do
[2017-08-06] MEDS ORDERED: oxyCODONE HCL 5 MG TABLET PO ONE (18:40)
[2017-08-06] MEDS: TRIAMCINOLONE ACET 0.1% OINT 15 GM TUBE TP SCH (21:58)
[2017-08-06] MEDS: GABAPENTIN 100 MG CAPSULE (FP) PO SCH (21:59)
[2017-08-06] MEDS: BETAMETHASONE DIPR 0.05% OINTMENT 15 GM TUBE TP SCH (21:59)
[2017-08-07] MEDS: LACTULOSE 20 GM/30 ML UDC (FOR ORAL USE ONLY) PO SCH ×5 (01:00→23:55)
[2017-08-07] MEDS: GABAPENTIN 100 MG CAPSULE (FP) PO SCH ×3 (06:58→21:24)
[2017-08-07 08:11] LABS: BASO % 0.8 % (0-2.0); EOS % 4.9 % (0-4.5); HEMOGLOBIN 9.5 GM/dL (11.7-16.9); LYMPH % 23.7 % (8-40); MCH 32.6 pg (25.7-33.7); MEAN CELL VOLUME 95.8 fl (80-96); MEAN PLT VOLUME 7.5 fl (7.5-11.1); MONO % 11.8 % (3.8-10.2); NEUT % 58.8 % (42.8-82.8); PLATELET COUNT 73 K/MM3 (134-434); RBC 2.93 M/mm3 (4.00-5.60); RDW 15.3 % (11.9-15.9); WHITE BLOOD COUNT 7.4 K/mm3 (4.0-10.0)
[2017-08-07 08:56] LABS: ALBUMIN 2.5 g/dl (3.4-5.0); ANION GAP 7 (8-16); BLOOD UREA NITROGEN 11 mg/dL (7-18); CALCIUM 9.2 mg/dL (8.5-10.1); CHLORIDE 98 mmol/L (98-107); CO2 30 mmol/L (21-32); GLUCOSE,RANDOM 108 mg/dL (74-106); SGPT/ALT 20 U/L (12-78); SODIUM 135 mmol/L (136-145)
[2017-08-07 08:59] LABS: ALK PHOS 111 U/L (45-117); BILIRUBIN,TOTAL 4.4 mg/dL (0.2-1.0); CREATININE 1.3 mg/dL (0.7-1.3); POTASSIUM 4.4 mmol/L (3.5-5.1); SGOT/AST 62 U/L (15-37); TOT PROT 8.1 g/dl (6.4-8.2)
--- NOTE | 2017-08-07 10:29 | PN ---
Progress Note, Physician - Current Medication List Current Medications: Active Medications Betamethasone Dipropionate (Diprosone 0.05% Ointment -) 1 applic TP BID [facility] Last Admin: 08/06/17 21:59 Dose: 1 applic Cyanocobalamin (Vitamin B12 -) 1,000 mcg PO DAILY [facility] Last Admin: 08/06/17 10:55 Dose: 1,000 mcg Folic Acid (Folic Acid -) 1 mg PO DAILY [facility] Last Admin: 08/06/17 10:55 Dose: 1 mg Furosemide (Lasix -) 20 mg PO DAILY [facility] Last Admin: 08/06/17 10:55 Dose: 20 mg Gabapentin (Neurontin -) 100 mg PO TID [facility] Last Admin: 08/07/17 06:58 Dose: 100 mg Lactated Ringer's (Lactated Ringers Solution) 1,000 ml in 1,000 mls @ 42 mls/ hr IV ASDIR [facility] Last Admin: 08/06/17 21:58 Dose: 42 mls/hr Ketoconazole (Nizoral 2% Shampoo -) 1 applic TP Q72H [facility] Last Admin: 08/05/17 11:12 Dose: Not Given Lactulose (Cephulac (Oral Use)) 20 gm PO Q6HPO [facility] Last Admin: 08/07/17 06:58 Dose: 20 gm Magnesium Oxide (Mag-Ox -) 400 mg PO BID [facility] Last Admin: 08/06/17 21:59 Dose: 400 mg Midodrine (Proamatine -) 5 mg PO TID-MID [facility] Last Admin: 08/06/17 18:04 Dose: Not Given Pantoprazole Sodium (Protonix -) 40 mg PO DAILY [facility] Last Admin: 08/06/17 10:55 Dose: 40 mg Rifaximin (Xifaxan -) 550 mg PO BID [facility] Last Admin: 08/06/17 21:59 Dose: 550 mg Sertraline HCl (Zoloft -) 25 mg PO DAILY [facility] Last Admin: 08/06/17 10:55 Dose: 25 mg Spironolactone (Aldactone -) 25 mg PO BID [facility] Last Admin: 08/06/17 21:59 Dose: 25 mg Thiamine HCl (Vitamin B1 -) 100 mg PO DAILY [facility] Last Admin: 08/06/17 10:55 Dose: 100 mg Triamcinolone Acetonide (Aristocort 0.1% Ointment -) 1 applic TP BID [facility] Last Admin: 08/06/17 21:58 Dose: 1 applic - Objective Vital Signs: Vital Signs Temperature 97.8 F 08/07/17 06:03 Pulse Rate 87 08/07/17 06:03 Respiratory Rate 18 08/07/17 06:03 Blood Pressure 138/68 08/07/17 06:03 O2 Sat by Pulse Oximetry (%) 99 08/06/17 08:00 Cardiovascular: Yes: S1, S2 Respiratory: Yes: Regular, CTA Bilaterally Gastrointestinal: Yes: Normal Bowel Sounds, Soft, Ascites, Distention Labs: CBC, BMP 08/07/17 07:47 08/07/17 07:47 INR, PTT INR 2.05 (0.82-1.09) H 08/04/17 15:35 Assessment/Plan - Problems (1) Hematuria Assessment/Plan: UA/UC -Renal bladder U/S -Urology consult Code(s): R31.9 - HEMATURIA, UNSPECIFIED (2) Hepatic encephalopathy Assessment/Plan: -lactulose Q6H -goal to have 2-3 BM's daily -GI consult Code(s): K72.90 - HEPATIC FAILURE, UNSPECIFIED WITHOUT COMA (3) Acute kidney injury Assessment/Plan: -dc IVF -Nephrology consult Code(s): N17.9 - ACUTE KIDNEY FAILURE, UNSPECIFIED (4) Alcoholic cirrhosis Code(s): K70.30 - ALCOHOLIC CIRRHOSIS OF LIVER WITHOUT ASCITES Qualifiers: Ascites presence: with ascites Qualified Code(s): K70.31 - Alcoholic cirrhosis of liver with ascites (5) Anemia Assessment/Plan: -monitor H/H -guaiac all stools Code(s): D64.9 - ANEMIA, UNSPECIFIED Qualifiers: Anemia type: unspecified type Qualified Code(s): D64.9 - Anemia, unspecified Assessment/Plan
[2017-08-07] MEDS: RIFAXIMIN 550 MG TABLET (UD) PO SCH ×2 (11:04→21:24)
[2017-08-07] MEDS: CYANOCOBALAMIN 1,000 MCG TABLET (FP) PO SCH (11:05)
[2017-08-07] MEDS: MIDODRINE HCL 5 MG TABLET PO SCH ×3 (11:05→17:19)
[2017-08-07] MEDS: FUROSEMIDE 20 MG TABLET (FP) PO SCH (11:05)
[2017-08-07] MEDS: MAGNESIUM OXIDE 400 MG TABLET (FP) PO SCH ×2 (11:05→21:23)
[2017-08-07] MEDS: SPIRONOLACTONE 25 MG TABLET (FP) PO SCH ×2 (11:05→21:23)
[2017-08-07] MEDS: THIAMINE HCL 100 MG TABLET (FP) PO SCH (11:05)
[2017-08-07] MEDS: FOLIC ACID 1 MG TABLET (FP) PO SCH (11:05)
[2017-08-07] MEDS: PANTOPRAZOLE 40 MG TABLET (FP) PO SCH (11:06)
[2017-08-07] MEDS: SERTRALINE HCL 25 MG TABLET (FP) PO SCH (11:09)
[2017-08-07] MEDS: BETAMETHASONE DIPR 0.05% OINTMENT 15 GM TUBE TP SCH ×2 (11:15→21:27)
[2017-08-07] MEDS: TRIAMCINOLONE ACET 0.1% OINT 15 GM TUBE TP SCH ×2 (11:15→21:27)
--- NOTE | 2017-08-07 11:57 | PN ---
Progress Note, Physician Chief Complaint: The patient seen in his bed. visiting. Awake, alert, in no distress. Maintains good urine output. No gross hematuria. - Current Medication List Current Medications: Active Medications Betamethasone Dipropionate (Diprosone 0.05% Ointment -) 1 applic TP BID [facility] Last Admin: 08/07/17 11:15 Dose: Not Given Cyanocobalamin (Vitamin B12 -) 1,000 mcg PO DAILY [facility] Last Admin: 08/07/17 11:05 Dose: 1,000 mcg Folic Acid (Folic Acid -) 1 mg PO DAILY [facility] Last Admin: 08/07/17 11:05 Dose: 1 mg Furosemide (Lasix -) 20 mg PO DAILY [facility] Last Admin: 08/07/17 11:05 Dose: 20 mg Gabapentin (Neurontin -) 100 mg PO TID [facility] Last Admin: 08/07/17 06:58 Dose: 100 mg Lactated Ringer's (Lactated Ringers Solution) 1,000 ml in 1,000 mls @ 42 mls/ hr IV ASDIR [facility] Last Admin: 08/06/17 21:58 Dose: 42 mls/hr Ketoconazole (Nizoral 2% Shampoo -) 1 applic TP Q72H [facility] Last Admin: 08/05/17 11:12 Dose: Not Given Lactulose (Cephulac (Oral Use)) 20 gm PO Q6HPO [facility] Last Admin: 08/07/17 06:58 Dose: 20 gm Magnesium Oxide (Mag-Ox -) 400 mg PO BID [facility] Last Admin: 08/07/17 11:05 Dose: 400 mg Midodrine (Proamatine -) 5 mg PO TID-MID [facility] Last Admin: 08/07/17 11:05 Dose: 5 mg Pantoprazole Sodium (Protonix -) 40 mg PO DAILY [facility] Last Admin: 08/07/17 11:06 Dose: 40 mg Rifaximin (Xifaxan -) 550 mg PO BID [facility] Last Admin: 08/07/17 11:04 Dose: 550 mg Sertraline HCl (Zoloft -) 25 mg PO DAILY [facility] Last Admin: 08/07/17 11:09 Dose: 25 mg Spironolactone (Aldactone -) 25 mg PO BID [facility] Last Admin: 08/07/17 11:05 Dose: 25 mg Thiamine HCl (Vitamin B1 -) 100 mg PO DAILY [facility] Last Admin: 08/07/17 11:05 Dose: 100 mg Triamcinolone Acetonide (Aristocort 0.1% Ointment -) 1 applic TP BID [facility] Last Admin: 08/07/17 11:15 Dose: Not Given - Objective Vital Signs: Vital Signs Temperature 97.8 F 08/07/17 06:03 Pulse Rate 87 08/07/17 06:03 Respiratory Rate 18 08/07/17 06:03 Blood Pressure 138/68 08/07/17 06:03 O2 Sat by Pulse Oximetry (%) 99 08/06/17 08:00 Constitutional: Yes: Anxious Eyes: Yes: Other (icteric sclera) HENT: Yes: Normocephalic Neck: Yes: Trachea Midline Cardiovascular: Yes: Regular Rate and Rhythm, S1, S2 Respiratory: Yes: CTA Bilaterally, Diminished Gastrointestinal: Yes: Normal Bowel Sounds, Soft Genitourinary: No: Bladder Distention, CVA Tenderness - Left, CVA Tenderness - Right Musculoskeletal: Yes: Back Pain, Joint Stiffness Neurological: Yes: Alert, Oriented Labs: CBC, BMP 08/07/17 07:47 08/07/17 07:47 INR, PTT INR 2.05 (0.82-1.09) H 08/04/17 15:35 Problem List - Problems (1) Bleeding Code(s): R58 - HEMORRHAGE, NOT ELSEWHERE CLASSIFIED (2) Hematuria Code(s): R31.9 - HEMATURIA, UNSPECIFIED (3) Hepatic encephalopathy Code(s): K72.90 - HEPATIC FAILURE, UNSPECIFIED WITHOUT COMA (4) Acute kidney injury Code(s): N17.9 - ACUTE KIDNEY FAILURE, UNSPECIFIED (5) Alcohol abuse Code(s): F10.10 - ALCOHOL ABUSE, UNCOMPLICATED (6) Alcohol intoxication Code(s): F10.929 - ALCOHOL USE, UNSPECIFIED WITH INTOXICATION, UNSPECIFIED Qualifiers: Complication of substance-induced condition: uncomplicated Qualified Code(s ): F10.920 - Alcohol use, unspecified with intoxication, uncomplicated (7) Alcoholic cirrhosis Code(s): K70.30 - ALCOHOLIC CIRRHOSIS OF LIVER WITHOUT ASCITES Qualifiers: Ascites presence: with ascites Qualified Code(s): K70.31 - Alcoholic cirrhosis of liver with ascites (8) Anemia Code(s): D64.9 - ANEMIA, UNSPECIFIED Qualifiers: Anemia type: unspecified type Qualified Code(s): D64.9 - Anemia, unspecified (9) Hepatorenal syndrome Code(s): K76.7 - HEPATORENAL SYNDROME (10) Jaundice Code(s): R17 - UNSPECIFIED JAUNDICE (11) Liver cirrhosis Code(s): K74.60 - UNSPECIFIED CIRRHOSIS OF LIVER Qualifiers: Hepatic cirrhosis type: alcoholic cirrhosis Ascites presence: with ascites Qualified Code(s): K70.31 - Alcoholic cirrhosis of liver with ascites Assessment/Plan 52 year old gentleman well known to our service with PMhx of Alcoholic liver cirrhosis, CKD (hepato-renal syndrome), Depression, who presented with gross hematuria x 3 day at home. Gross Hematuria: will need Cysto per Urology. ? Wednesday. CKD Stage 3: Cr slightly above baseline but no overt acute kidney injury. Decreased Lasix dose given improved edema and weight + dizziness Trend BUN/Cr. W/u in progress. Cirrhosis: GI following supportive care Anemia: related to hematuria. Hemoglobin tends to stabilize. The patient will require alcohol rehab when ready for discharge. Thank you. Ángela Ford MD
[2017-08-07] MEDS ORDERED: PT OWN MED DRAWER 7, Y5N ONE (21:09)
[2017-08-08] MEDS: LACTULOSE 20 GM/30 ML UDC (FOR ORAL USE ONLY) PO SCH ×3 (05:47→17:15)
[2017-08-08] MEDS: GABAPENTIN 100 MG CAPSULE (FP) PO SCH ×3 (05:47→21:38)
[2017-08-08 06:36] LABS: HBSAG SCREEN Negative (Negative); HEP A AB, IGM Negative (Negative); HEP B CORE AB, TOT Negative (Negative)
[2017-08-08 06:43] LABS: BASO % 0.4 % (0-2.0); EOS % 5.2 % (0-4.5); HEMATOCRIT 25.9 % (35.4-49); LYMPH % 24.1 % (8-40); MCH 33.6 pg (25.7-33.7); MCHC 34.7 g/dl (32.0-35.9); MEAN CELL VOLUME 96.6 fl (80-96); MEAN PLT VOLUME 8.1 fl (7.5-11.1); MONO % 12.3 % (3.8-10.2); PLATELET COUNT 82 K/MM3 (134-434); RBC 2.69 M/mm3 (4.00-5.60); RDW 15.1 % (11.9-15.9); WHITE BLOOD COUNT 7.8 K/mm3 (4.0-10.0)
[2017-08-08 07:27] LABS: ALBUMIN 2.3 g/dl (3.4-5.0); ALK PHOS 103 U/L (45-117); ANION GAP 3 (8-16); BILIRUBIN,TOTAL 3.9 mg/dL (0.2-1.0); BLOOD UREA NITROGEN 11 mg/dL (7-18); CALCIUM 8.9 mg/dL (8.5-10.1); CHLORIDE 99 mmol/L (98-107); CO2 33 mmol/L (21-32); CREATININE 1.2 mg/dL (0.7-1.3); GLUCOSE,RANDOM 108 mg/dL (74-106); POTASSIUM 4.1 mmol/L (3.5-5.1); SGOT/AST 52 U/L (15-37); SGPT/ALT 19 U/L (12-78); SODIUM 135 mmol/L (136-145); TOT PROT 7.5 g/dl (6.4-8.2)
[2017-08-08] MEDS: MAGNESIUM OXIDE 400 MG TABLET (FP) PO SCH ×2 (09:05→21:38)
[2017-08-08] MEDS: CYANOCOBALAMIN 1,000 MCG TABLET (FP) PO SCH (09:05)
[2017-08-08] MEDS: SPIRONOLACTONE 25 MG TABLET (FP) PO SCH ×2 (09:05→21:38)
[2017-08-08] MEDS: MIDODRINE HCL 5 MG TABLET PO SCH ×3 (09:05→17:18)
[2017-08-08] MEDS: THIAMINE HCL 100 MG TABLET (FP) PO SCH (09:05)
[2017-08-08] MEDS: SERTRALINE HCL 25 MG TABLET (FP) PO SCH (09:05)
[2017-08-08] MEDS: FUROSEMIDE 20 MG TABLET (FP) PO SCH (09:05)
[2017-08-08] MEDS: FOLIC ACID 1 MG TABLET (FP) PO SCH (09:05)
[2017-08-08] MEDS: RIFAXIMIN 550 MG TABLET (UD) PO SCH ×2 (09:06→21:38)
[2017-08-08] MEDS: PANTOPRAZOLE 40 MG TABLET (FP) PO SCH (09:06)
[2017-08-08] MEDS: TRIAMCINOLONE ACET 0.1% OINT 15 GM TUBE TP SCH ×2 (09:07→21:39)
[2017-08-08] MEDS: BETAMETHASONE DIPR 0.05% OINTMENT 15 GM TUBE TP SCH ×2 (09:07→21:39)
--- NOTE | 2017-08-08 11:10 | PN ---
Progress Note, Physician History of Present Illness: c/o chronic back pain wants pain meds - Current Medication List Current Medications: Active Medications Betamethasone Dipropionate (Diprosone 0.05% Ointment -) 1 applic TP BID [facility] Last Admin: 08/08/17 09:07 Dose: 1 applic Cyanocobalamin (Vitamin B12 -) 1,000 mcg PO DAILY [facility] Last Admin: 08/08/17 09:05 Dose: 1,000 mcg Folic Acid (Folic Acid -) 1 mg PO DAILY [facility] Last Admin: 08/08/17 09:05 Dose: 1 mg Furosemide (Lasix -) 20 mg PO DAILY [facility] Last Admin: 08/08/17 09:05 Dose: 20 mg Gabapentin (Neurontin -) 100 mg PO TID [facility] Last Admin: 08/08/17 05:47 Dose: 100 mg Ketoconazole (Nizoral 2% Shampoo -) 1 applic TP Q72H [facility] Last Admin: 08/05/17 11:12 Dose: Not Given Lactulose (Cephulac (Oral Use)) 20 gm PO Q6HPO [facility] Last Admin: 08/08/17 05:47 Dose: Not Given Magnesium Oxide (Mag-Ox -) 400 mg PO BID [facility] Last Admin: 08/08/17 09:05 Dose: 400 mg Midodrine (Proamatine -) 5 mg PO TID-MID [facility] Last Admin: 08/08/17 09:05 Dose: 5 mg Oxycodone HCl (Roxicodone -) 5 mg PO BID PRN PRN Reason: PAIN Pantoprazole Sodium (Protonix -) 40 mg PO DAILY [facility] Last Admin: 08/08/17 09:06 Dose: 40 mg Rifaximin (Xifaxan -) 550 mg PO BID [facility] Last Admin: 08/08/17 09:06 Dose: 550 mg Sertraline HCl (Zoloft -) 25 mg PO DAILY [facility] Last Admin: 08/08/17 09:05 Dose: 25 mg Spironolactone (Aldactone -) 25 mg PO BID [facility] Last Admin: 08/08/17 09:05 Dose: 25 mg Thiamine HCl (Vitamin B1 -) 100 mg PO DAILY [facility] Last Admin: 08/08/17 09:05 Dose: 100 mg Triamcinolone Acetonide (Aristocort 0.1% Ointment -) 1 applic TP BID [facility] Last Admin: 08/08/17 09:07 Dose: 1 applic - Objective Vital Signs: Vital Signs Temperature 98.2 F 08/08/17 10:00 Pulse Rate 80 08/08/17 10:00 Respiratory Rate 18 08/08/17 10:00 Blood Pressure 132/72 08/08/17 10:00 O2 Sat by Pulse Oximetry (%) 96 08/07/17 21:00 Cardiovascular: Yes: Regular Rate and Rhythm Respiratory: Yes: Regular, CTA Bilaterally Gastrointestinal: Yes: Normal Bowel Sounds, Soft. No: Tenderness Labs: CBC, BMP 08/08/17 06:10 08/08/17 06:10 INR, PTT INR 2.05 (0.82-1.09) H 08/04/17 15:35 Assessment/Plan - Problems (1) Hematuria Assessment/Plan: UA/UC -Renal bladder U/S -Urology consult noted for cysto Code(s): R31.9 - HEMATURIA, UNSPECIFIED (2) Hepatic encephalopathy Assessment/Plan: -lactulose Q6H -goal to have 2-3 BM's daily -GI consult Code(s): K72.90 - HEPATIC FAILURE, UNSPECIFIED WITHOUT COMA (3) Acute kidney injury Assessment/Plan: -dc IVF -Nephrology consult Code(s): N17.9 - ACUTE KIDNEY FAILURE, UNSPECIFIED (4) Alcoholic cirrhosis Code(s): K70.30 - ALCOHOLIC CIRRHOSIS OF LIVER WITHOUT ASCITES Qualifiers: Ascites presence: with ascites Qualified Code(s): K70.31 - Alcoholic cirrhosis of liver with ascites (5) Anemia Assessment/Plan: -monitor H/H -guaiac all stools Code(s): D64.9 - ANEMIA, UNSPECIFIED Qualifiers: Anemia type: unspecified type Qualified Code(s): D64.9 - Anemia, unspecified Assessment/Plan
[2017-08-08] MEDS: oxyCODONE HCL 5 MG TABLET PO PRN (11:22)
[2017-08-08] MEDS: KETOCONAZOLE 2 % SHAMPOO 120 ML BOTTLE TP SCH (12:00)
--- NOTE | 2017-08-08 12:09 | PN ---
Progress Note, Physician Chief Complaint: The patient seen in his bed. For cystoscopy in AM. Still with abdominal pain, mostly in the midabdomen and RUQ. Awake, alert, in no distress. Maintains good urine output. No gross hematuria. - Current Medication List Current Medications: Active Medications Betamethasone Dipropionate (Diprosone 0.05% Ointment -) 1 applic TP BID [facility] Last Admin: 08/08/17 09:07 Dose: 1 applic Cyanocobalamin (Vitamin B12 -) 1,000 mcg PO DAILY [facility] Last Admin: 08/08/17 09:05 Dose: 1,000 mcg Folic Acid (Folic Acid -) 1 mg PO DAILY [facility] Last Admin: 08/08/17 09:05 Dose: 1 mg Furosemide (Lasix -) 20 mg PO DAILY [facility] Last Admin: 08/08/17 09:05 Dose: 20 mg Gabapentin (Neurontin -) 100 mg PO TID [facility] Last Admin: 08/08/17 05:47 Dose: 100 mg Ketoconazole (Nizoral 2% Shampoo -) 1 applic TP Q72H [facility] Last Admin: 08/05/17 11:12 Dose: Not Given Lactulose (Cephulac (Oral Use)) 20 gm PO Q6HPO [facility] Last Admin: 08/08/17 11:23 Dose: 20 gm Magnesium Oxide (Mag-Ox -) 400 mg PO BID [facility] Last Admin: 08/08/17 09:05 Dose: 400 mg Midodrine (Proamatine -) 5 mg PO TID-MID [facility] Last Admin: 08/08/17 09:05 Dose: 5 mg Oxycodone HCl (Roxicodone -) 5 mg PO BID PRN PRN Reason: PAIN Last Admin: 08/08/17 11:22 Dose: 5 mg Pantoprazole Sodium (Protonix -) 40 mg PO DAILY [facility] Last Admin: 08/08/17 09:06 Dose: 40 mg Rifaximin (Xifaxan -) 550 mg PO BID [facility] Last Admin: 08/08/17 09:06 Dose: 550 mg Sertraline HCl (Zoloft -) 25 mg PO DAILY [facility] Last Admin: 08/08/17 09:05 Dose: 25 mg Spironolactone (Aldactone -) 25 mg PO BID [facility] Last Admin: 08/08/17 09:05 Dose: 25 mg Thiamine HCl (Vitamin B1 -) 100 mg PO DAILY [facility] Last Admin: 08/08/17 09:05 Dose: 100 mg Triamcinolone Acetonide (Aristocort 0.1% Ointment -) 1 applic TP BID [facility] Last Admin: 08/08/17 09:07 Dose: 1 applic - Objective Vital Signs: Vital Signs Temperature 98.2 F 08/08/17 10:00 Pulse Rate 80 08/08/17 10:00 Respiratory Rate 18 08/08/17 10:00 Blood Pressure 132/72 08/08/17 10:00 O2 Sat by Pulse Oximetry (%) 96 08/07/17 21:00 Constitutional: Yes: Anxious, Pallor, Other (icteric) Eyes: Yes: Conjunctiva Clear HENT: Yes: Atraumatic Neck: Yes: Trachea Midline Cardiovascular: Yes: S1, S2 Respiratory: Yes: CTA Bilaterally, Diminished Gastrointestinal: Yes: Normal Bowel Sounds, Soft, Tenderness (midbdominal), Tenderness, Epigastrium Genitourinary: No: Bladder Distention, CVA Tenderness - Left, CVA Tenderness - Right Musculoskeletal: Yes: Back Pain Labs: CBC, BMP 08/08/17 06:10 08/08/17 06:10 INR, PTT INR 2.05 (0.82-1.09) H 08/04/17 15:35 Problem List - Problems (1) Bleeding Code(s): R58 - HEMORRHAGE, NOT ELSEWHERE CLASSIFIED (2) Hematuria Code(s): R31.9 - HEMATURIA, UNSPECIFIED (3) Hepatic encephalopathy Code(s): K72.90 - HEPATIC FAILURE, UNSPECIFIED WITHOUT COMA (4) Acute kidney injury Code(s): N17.9 - ACUTE KIDNEY FAILURE, UNSPECIFIED (5) Alcohol abuse Code(s): F10.10 - ALCOHOL ABUSE, UNCOMPLICATED (6) Alcohol intoxication Code(s): F10.929 - ALCOHOL USE, UNSPECIFIED WITH INTOXICATION, UNSPECIFIED Qualifiers: Complication of substance-induced condition: uncomplicated Qualified Code(s ): F10.920 - Alcohol use, unspecified with intoxication, uncomplicated (7) Alcoholic cirrhosis Code(s): K70.30 - ALCOHOLIC CIRRHOSIS OF LIVER WITHOUT ASCITES Qualifiers: Ascites presence: with ascites Qualified Code(s): K70.31 - Alcoholic cirrhosis of liver with ascites (8) Anemia Code(s): D64.9 - ANEMIA, UNSPECIFIED Qualifiers: Anemia type: unspecified type Qualified Code(s): D64.9 - Anemia, unspecified (9) Hepatorenal syndrome Code(s): K76.7 - HEPATORENAL SYNDROME (10) Jaundice Code(s): R17 - UNSPECIFIED JAUNDICE (11) Liver cirrhosis Code(s): K74.60 - UNSPECIFIED CIRRHOSIS OF LIVER Qualifiers: Hepatic cirrhosis type: alcoholic cirrhosis Ascites presence: with ascites Qualified Code(s): K70.31 - Alcoholic cirrhosis of liver with ascites Assessment/Plan 52 year old gentleman well known to our service with PMhx of Alcoholic liver cirrhosis, CKD (hepato-renal syndrome), Depression, who presented with gross hematuria x 3 day at home. Gross Hematuria: For cystoscopy tomorrow. CKD Stage 3: Cr slightly above baseline, but stable. Decreased Lasix dose given improved edema and weight + dizziness Trend BUN/Cr. W/u in progress. Cirrhosis: GI following supportive care Anemia: Related to hematuria. Hemoglobin tends to stabilize. The patient will require alcohol rehab when ready for discharge. Thank you. Ángela Ford MD
[2017-08-08] MEDS ORDERED: oxyCODONE HCL 5 MG TABLET PO ONE ×2 (14:45→21:30)
[2017-08-08] MEDS ORDERED: PT OWN MED DRAWER 7, Y5N ONE (22:15)
[2017-08-09] MEDS ORDERED: LEVOFLOXACIN 500 MG PREMIX BAG IVPB ONE
[2017-08-09] MEDS: LACTULOSE 20 GM/30 ML UDC (FOR ORAL USE ONLY) PO SCH ×5 (01:12→23:32)
[2017-08-09] MEDS: GABAPENTIN 100 MG CAPSULE (FP) PO SCH ×4 (06:33→22:00)
[2017-08-09 08:02] LABS: ALBUMIN 2.4 g/dl (3.4-5.0); ANION GAP 4 (8-16); BLOOD UREA NITROGEN 12 mg/dL (7-18); CALCIUM 8.9 mg/dL (8.5-10.1); CHLORIDE 98 mmol/L (98-107); CO2 32 mmol/L (21-32); GLUCOSE,RANDOM 111 mg/dL (74-106); POTASSIUM 4.3 mmol/L (3.5-5.1); SODIUM 134 mmol/L (136-145)
[2017-08-09 08:06] LABS: ALK PHOS 103 U/L (45-117); BILIRUBIN,TOTAL 3.6 mg/dL (0.2-1.0); CREATININE 1.2 mg/dL (0.7-1.3); SGOT/AST 47 U/L (15-37); SGPT/ALT 18 U/L (12-78); TOT PROT 7.5 g/dl (6.4-8.2)
[2017-08-09 10:12] LABS: ANTIGLOMERULAR BASEMENT MEN.AB 6 units (0-20)
[2017-08-09] MEDS ORDERED: PT OWN MED DRAWER 7, Y5N ONE ×2 (10:56→20:31)
[2017-08-09] MEDS: SERTRALINE HCL 25 MG TABLET (FP) PO SCH (10:58)
[2017-08-09] MEDS: SPIRONOLACTONE 25 MG TABLET (FP) PO SCH ×2 (10:58→22:01)
[2017-08-09] MEDS: CYANOCOBALAMIN 1,000 MCG TABLET (FP) PO SCH (10:58)
[2017-08-09] MEDS: PANTOPRAZOLE 40 MG TABLET (FP) PO SCH (10:58)
[2017-08-09] MEDS: FOLIC ACID 1 MG TABLET (FP) PO SCH (10:58)
[2017-08-09] MEDS: THIAMINE HCL 100 MG TABLET (FP) PO SCH (10:58)
[2017-08-09] MEDS: MAGNESIUM OXIDE 400 MG TABLET (FP) PO SCH ×2 (10:58→22:01)
[2017-08-09] MEDS: FUROSEMIDE 20 MG TABLET (FP) PO SCH (10:58)
[2017-08-09] MEDS: oxyCODONE HCL 5 MG TABLET PO PRN ×2 (11:00→22:01)
[2017-08-09] MEDS: RIFAXIMIN 550 MG TABLET (UD) PO SCH ×2 (11:00→22:00)
[2017-08-09] MEDS: MIDODRINE HCL 5 MG TABLET PO SCH ×3 (11:03→18:09)
[2017-08-09] MEDS: BETAMETHASONE DIPR 0.05% OINTMENT 15 GM TUBE TP SCH ×2 (11:05→21:59)
[2017-08-09] MEDS: TRIAMCINOLONE ACET 0.1% OINT 15 GM TUBE TP SCH ×2 (11:05→21:59)
--- NOTE | 2017-08-09 11:49 | PN ---
Progress Note, Physician Chief Complaint: Hematuria, Confusion, weakness History of Present Illness: Patient well known to us from the past liver cirrhosis 2/2 to alcohol abuse, incomplete rehab x 2 UA+3 blood UC negative received 2 doses of lactulose in the ER----> ammonia levels decreased to 29 from 88 refused standing dose of lactulose-encouraged not to do so, one time dose ordered for now -h/h stable stool ob negative for cystoscopy today - Current Medication List Current Medications: Active Medications Betamethasone Dipropionate (Diprosone 0.05% Ointment -) 1 applic TP BID [facility] Last Admin: 08/09/17 11:05 Dose: Not Given Cyanocobalamin (Vitamin B12 -) 1,000 mcg PO DAILY [facility] Last Admin: 08/09/17 10:58 Dose: 1,000 mcg Folic Acid (Folic Acid -) 1 mg PO DAILY [facility] Last Admin: 08/09/17 10:58 Dose: 1 mg Furosemide (Lasix -) 20 mg PO DAILY [facility] Last Admin: 08/09/17 10:58 Dose: 20 mg Gabapentin (Neurontin -) 100 mg PO TID [facility] Last Admin: 08/09/17 06:33 Dose: Not Given Ketoconazole (Nizoral 2% Shampoo -) 1 applic TP Q72H [facility] Last Admin: 08/08/17 12:00 Dose: Not Given Lactulose (Cephulac (Oral Use)) 20 gm PO Q6HPO [facility] Last Admin: 08/09/17 06:33 Dose: Not Given Magnesium Oxide (Mag-Ox -) 400 mg PO BID [facility] Last Admin: 08/09/17 10:58 Dose: 400 mg Midodrine (Proamatine -) 5 mg PO TID-MID [facility] Last Admin: 08/09/17 11:03 Dose: Not Given Oxycodone HCl (Roxicodone -) 5 mg PO BID PRN PRN Reason: PAIN Last Admin: 08/09/17 11:00 Dose: 5 mg Pantoprazole Sodium (Protonix -) 40 mg PO DAILY [facility] Last Admin: 08/09/17 10:58 Dose: 40 mg Rifaximin (Xifaxan -) 550 mg PO BID [facility] Last Admin: 08/09/17 11:00 Dose: 550 mg Sertraline HCl (Zoloft -) 25 mg PO DAILY [facility] Last Admin: 08/09/17 10:58 Dose: 25 mg Spironolactone (Aldactone -) 25 mg PO BID [facility] Last Admin: 08/09/17 10:58 Dose: 25 mg Thiamine HCl (Vitamin B1 -) 100 mg PO DAILY [facility] Last Admin: 08/09/17 10:58 Dose: 100 mg Triamcinolone Acetonide (Aristocort 0.1% Ointment -) 1 applic TP BID [facility] Last Admin: 08/09/17 11:05 Dose: Not Given - Objective Vital Signs: Vital Signs Temperature 97.5 F L 08/09/17 10:00 Pulse Rate 81 08/09/17 10:00 Respiratory Rate 20 08/09/17 10:00 Blood Pressure 145/71 08/09/17 10:00 O2 Sat by Pulse Oximetry (%) 95 08/08/17 21:00 Constitutional: Yes: Well Nourished, No Distress, Calm Cardiovascular: Yes: Regular Rate and Rhythm Respiratory: Yes: Regular Gastrointestinal: Yes: Soft, Abdomen, Obese Musculoskeletal: Yes: Muscle Weakness Extremities: Yes: Erythema (BLLE) Edema: Yes Edema: LLE: Trace, RLE: Trace Peripheral Pulses WNL: Yes Neurological: Yes: Alert, Oriented, Lethargy Psychiatric: Yes: Alert, Oriented Labs: CBC, BMP 08/08/17 06:10 08/09/17 07:00 INR, PTT INR 2.05 (0.82-1.09) H 08/04/17 15:35 Problem List - Problems (1) Hematuria Assessment/Plan: UA +3 blood -UC preliminary negative -Renal bladder U/S unremarkable -Urology consult appreciated -Cystoscopy today in the afternoon Code(s): R31.9 - HEMATURIA, UNSPECIFIED (2) Hepatic encephalopathy Assessment/Plan: -lactulose Q6H -goal to have 3-4 BM's daily -GI consult appreciated Code(s): K72.90 - HEPATIC FAILURE, UNSPECIFIED WITHOUT COMA (3) Acute kidney injury Assessment/Plan: -gentle IVF -at his baseline -Nephrology consult appreciated Code(s): N17.9 - ACUTE KIDNEY FAILURE, UNSPECIFIED (4) Alcoholic cirrhosis Code(s): K70.30 - ALCOHOLIC CIRRHOSIS OF LIVER WITHOUT ASCITES Qualifiers: Ascites presence: with ascites Qualified Code(s): K70.31 - Alcoholic cirrhosis of liver with ascites (5) Anemia Assessment/Plan: - H/H stable -guaiac all stools -repeat labs today Code(s): D64.9 - ANEMIA, UNSPECIFIED Qualifiers: Anemia type: unspecified type Qualified Code(s): D64.9 - Anemia, unspecified (6) Chronic back pain Assessment/Plan: -was on oxycodone 5 mg po Q4H PRN, was discontinued and started on gabapentin to see if his lethargy and intermittent confusion improves -it was restarted over the weekend, admits that he is definitely more lethargic and confused on it but his pain was excruciating -Increase gabapentin to 300 mg po QID and gradually taper oxycodone to the lowest dose needed. Code(s): M54.9 - DORSALGIA, UNSPECIFIED; G89.29 - OTHER CHRONIC PAIN Assessment/Plan see problem list physical therapy
[2017-08-09] MEDS ORDERED: DEXTROSE 5%-0.45% SALINE 1,000 ML IV SCH ×2 (12:00→13:21)
--- NOTE | 2017-08-09 12:38 | EKG ---
Test Reason : Blood Pressure : / mmHG Vent. Rate : 083 BPM Atrial Rate : 083 BPM P-R Int : 152 ms QRS Dur : 092 ms QT Int : 430 ms P-R-T Axes : 051 -14 031 degrees QTc Int : 505 ms NORMAL SINUS RHYTHM POSSIBLE LEFT ATRIAL ENLARGEMENT INFERIOR INFARCT (CITED ON OR BEFORE 04-AUG-2017) PROLONGED QT ABNORMAL ECG WHEN COMPARED WITH ECG OF 04-AUG-2017 15:56, T WAVE VARIATION Confirmed by MIKE WOODWARD, PAULINA ([id number]) on 08/09/2017 12:38:18 PM Referred By: Jacques MANZANO Confirmed By:PAULINA MCKEON MD
[2017-08-09 13:12] LABS: EOS % 6.3 % (0-4.5); HEMATOCRIT 27.8 % (35.4-49); HEMOGLOBIN 9.2 GM/dL (11.7-16.9); LYMPH % 25.8 % (8-40); MEAN CELL VOLUME 96.9 fl (80-96); MONO % 12.9 % (3.8-10.2); PLATELET COUNT 71 K/MM3 (134-434); RBC 2.87 M/mm3 (4.00-5.60); RDW 15.4 % (11.9-15.9); WHITE BLOOD COUNT 7.9 K/mm3 (4.0-10.0)
[2017-08-09] MEDS ORDERED: oxyCODONE HCL 5 MG TABLET PO PRN (13:20)
--- NOTE | 2017-08-09 15:51 | PN ---
Progress Note (short form) - Note Progress Note: Renal follow up for CKD/Hepatorenal syndrome Pt seen and examined at the bedside NPO for cystoscopy today no acute complaints no further gross hematuria no sob, chest pain Vital Signs Temperature 97.7 F 08/09/17 14:59 Pulse Rate 78 08/09/17 14:59 Respiratory Rate 20 08/09/17 14:59 Blood Pressure 120/64 08/09/17 14:59 O2 Sat by Pulse Oximetry (%) 97 08/09/17 09:00 Intake & Output 08/06/17 08/07/17 08/08/17 08/09/17 23:59 23:59 23:59 23:59 Intake Total 1918 1854 600 120 Output Total 400 400 440 Balance 1518 1854 200 -320 NAD RRR soft, NT/ND, + mild ascities trace LE edema CBC, BMP 08/09/17 12:30 08/09/17 07:00 Current Medications Betamethasone Dipropionate (Diprosone 0.05% Ointment -) 1 applic TP BID [facility] Last Admin: 08/09/17 11:05 Dose: Not Given Cyanocobalamin (Vitamin B12 -) 1,000 mcg PO DAILY [facility] Last Admin: 08/09/17 10:58 Dose: 1,000 mcg Folic Acid (Folic Acid -) 1 mg PO DAILY [facility] Last Admin: 08/09/17 10:58 Dose: 1 mg Furosemide (Lasix -) 20 mg PO DAILY [facility] Last Admin: 08/09/17 10:58 Dose: 20 mg Gabapentin (Neurontin -) 300 mg PO QID [facility] Last Admin: 08/09/17 14:13 Dose: 300 mg Dextrose/Sodium Chloride (D5-1/2ns -) 1,000 mls @ 42 mls/hr IV ASDIR [facility] Last Admin: 08/09/17 14:13 Dose: 42 mls/hr Ketoconazole (Nizoral 2% Shampoo -) 1 applic TP Q72H [facility] Last Admin: 08/08/17 12:00 Dose: Not Given Lactulose (Cephulac (Oral Use)) 20 gm PO Q6HPO [facility] Last Admin: 08/09/17 11:54 Dose: 20 gm Magnesium Oxide (Mag-Ox -) 400 mg PO BID [facility] Last Admin: 08/09/17 10:58 Dose: 400 mg Midodrine (Proamatine -) 5 mg PO TID-MID [facility] Last Admin: 08/09/17 13:57 Dose: Not Given Oxycodone HCl (Roxicodone -) 5 mg PO Q6H PRN PRN Reason: PAIN Pantoprazole Sodium (Protonix -) 40 mg PO DAILY [facility] Last Admin: 08/09/17 10:58 Dose: 40 mg Rifaximin (Xifaxan -) 550 mg PO BID [facility] Last Admin: 08/09/17 11:00 Dose: 550 mg Sertraline HCl (Zoloft -) 25 mg PO DAILY [facility] Last Admin: 08/09/17 10:58 Dose: 25 mg Spironolactone (Aldactone -) 25 mg PO BID [facility] Last Admin: 08/09/17 10:58 Dose: 25 mg Thiamine HCl (Vitamin B1 -) 100 mg PO DAILY [facility] Last Admin: 08/09/17 10:58 Dose: 100 mg Triamcinolone Acetonide (Aristocort 0.1% Ointment -) 1 applic TP BID [facility] Last Admin: 08/09/17 11:05 Dose: Not Given 52 year old gentleman well known to our service with PMhx of alocholic liver cirrhosis, CKD (hepato-renal syndrome), Depression, Psoriasis who presented with gross hematuria x 3 day at home. #Gross Hematuria clinically improved for cysto today #CKD Renal function stable Continue Lasix/Aldactone Trend BUN/cr and daily weights #Cirrhosis GI following supportive care #Anemia trend cbc transfuse as needed Thank you Will follow Ronaldo Gonzalez Do
[2017-08-09] MEDS ORDERED: LEVOFLOXACIN 500 MG IVPB 500 MG/100 ML BAG IVPB ONE (18:57)
[2017-08-09] MEDS ORDERED: LIDOCAINE HCL/PF 2% SDV 5ML VIAL ONE (19:08)
[2017-08-09] MEDS ORDERED: PROPOFOL 20 ML ONE ×3 (19:09→19:17)
[2017-08-09] MEDS ORDERED: SUCCINYLCHOLINE CHLORIDE 200 MG/10 ML VIAL ONE (19:24)
[2017-08-09] MEDS ORDERED: LIDOCAINE HCL 2% JELLY 10 ML CARTRIDGE ONE (19:25)
[2017-08-09] MEDS ORDERED: MIDAZOLAM HCL 2 MG/2 ML SINGLE DOSE VIAL ONE (19:25)
[2017-08-09] MEDS ORDERED: LIDOCAINE HCL 2% JELLY (5 ML/TUBE) ONE (19:25)
--- NOTE | 2017-08-09 19:41 | OP ---
Operative Note - Note: Operative Date: 08/09/17 Pre-Operative Diagnosis: hematuria/chronic kidney disease Operation: cystoscopy and bilateral retrograde pyelogram Findings: no evidence of neoplasm/obstructio/stone Post-Operative Diagnosis: Same as Pre-op Surgeon: Get Gupta Anesthesia: Fractional
[2017-08-09] MEDS ORDERED: PROMETHAZINE HCL 25 MG/1 ML VIAL IVPB PRN (19:48)
[2017-08-09] MEDS ORDERED: ONDANSETRON 4 MG/2 ML VIAL IVPUSH PRN (19:48)
[2017-08-09] MEDS ORDERED: LACTATED RINGERS SOLUTION 1,000 ML IV SCH (20:00)
[2017-08-09] MEDS ORDERED: KETOCONAZOLE 2 % SHAMPOO 120 ML BOTTLE TP SCH (20:15)
[2017-08-09] MEDS: DEXTROSE 5%-0.45% SALINE 1,000 ML IV SCH (21:58)
[2017-08-10 00:06] LABS: ATYPICAL pANCA <1:20 titer (Neg:<1:20); C-ANCA <1:20 titer (Neg:<1:20); P-ANCA <1:20 titer (Neg:<1:20); PROTEINASE-3 ANTIBODY <3.5 U/mL (0.0-3.5)
[2017-08-10] MEDS: LACTULOSE 20 GM/30 ML UDC (FOR ORAL USE ONLY) PO SCH ×4 (06:29→23:57)
[2017-08-10 09:32] LABS: BASO % 0.8 % (0-2.0); EOS % 6.3 % (0-4.5); HEMATOCRIT 30.8 % (35.4-49); HEMOGLOBIN 10.1 GM/dL (11.7-16.9); LYMPH % 24.3 % (8-40); MCHC 32.7 g/dl (32.0-35.9); MEAN CELL VOLUME 97.9 fl (80-96); MEAN PLT VOLUME 7.8 fl (7.5-11.1); MONO % 11.5 % (3.8-10.2); NEUT % 57.1 % (42.8-82.8); PLATELET COUNT 86 K/MM3 (134-434); RBC 3.15 M/mm3 (4.00-5.60); RDW 15.7 % (11.9-15.9); WHITE BLOOD COUNT 7.6 K/mm3 (4.0-10.0)
--- NOTE | 2017-08-10 09:38 | OP ---
DATE OF OPERATION: 08/09/2017 PREOPERATIVE DIAGNOSES: Hematuria and chronic kidney disease. POSTOPERATIVE DIAGNOSES: Hematuria and chronic kidney disease. PROCEDURE: Cystoscopy and bilateral retrograde pyelogram. ATTENDING: Jun Avila MD ANESTHESIA: Fractional. DESCRIPTION OF OPERATION: The patient was brought in the operating room and placed in supine position on the operating room table. Anesthesia was administered. The patient was then placed in the dorsal lithotomy position. Cystoscopy was performed, and a 2+ to 3+ obstructive prostate with 1+ bladder trabeculation was noted. No evidence of neoplasms or stones was noted within the bladder. Bilateral retrograde pyelograms were performed utilizing an open-ended catheter. No evidence of obstruction, stones, or neoplasm was noted along the ureter or collecting system of the kidneys bilaterally. The patient tolerated the procedure very well. No complications were noted. JUN AVILA M.D. /[id number]
[2017-08-10 10:10] LABS: ALBUMIN 2.5 g/dl (3.4-5.0); ALK PHOS 100 U/L (45-117); ANION GAP 8 (8-16); BILIRUBIN,TOTAL 4.6 mg/dL (0.2-1.0); BLOOD UREA NITROGEN 12 mg/dL (7-18); CHLORIDE 99 mmol/L (98-107); CO2 28 mmol/L (21-32); CREATININE 1.2 mg/dL (0.7-1.3); GLUCOSE,RANDOM 122 mg/dL (74-106); MAGNESIUM 1.9 mg/dL (1.8-2.4); PHOSPHOROUS 4.1 mg/dL (2.5-4.9); POTASSIUM 4.5 mmol/L (3.5-5.1); SGOT/AST 52 U/L (15-37); SGPT/ALT 19 U/L (12-78); SODIUM 135 mmol/L (136-145); TOT PROT 8.2 g/dl (6.4-8.2)
--- NOTE | 2017-08-10 10:16 | PN ---
Progress Note, Physician Chief Complaint: Hematuria, Confusion, weakness History of Present Illness: Patient well known to us from the past liver cirrhosis 2/2 to alcohol abuse, incomplete rehab x 2 UA+3 blood UC negative h/h stable stool ob negative for cystoscopy unremarkable little more confused today likely secondary to anesthesia yesterday? - Current Medication List Current Medications: Active Medications Betamethasone Dipropionate (Diprosone 0.05% Ointment -) 1 applic TP BID [facility] Last Admin: 08/09/17 21:59 Dose: 1 applic Cyanocobalamin (Vitamin B12 -) 1,000 mcg PO DAILY [facility] Fentanyl (Sublimaze Injection -) 25 mcg IVPUSH [id number] PRN PRN Reason: PAIN Folic Acid (Folic Acid -) 1 mg PO DAILY [facility] Furosemide (Lasix -) 20 mg PO DAILY [facility] Gabapentin (Neurontin -) 300 mg PO QID [facility] Last Admin: 08/09/17 22:00 Dose: 300 mg Dextrose/Sodium Chloride (D5-1/2ns -) 1,000 mls @ 42 mls/hr IV ASDIR [facility] Last Admin: 08/09/17 21:58 Dose: 42 mls/hr Ketoconazole (Nizoral 2% Shampoo -) 1 applic TP Q72H [facility] Lactulose (Cephulac (Oral Use)) 20 gm PO Q6HPO [facility] Last Admin: 08/10/17 06:29 Dose: 20 gm Magnesium Oxide (Mag-Ox -) 400 mg PO BID [facility] Last Admin: 08/09/17 22:01 Dose: 400 mg Midodrine (Proamatine -) 5 mg PO TID-MID [facility] Ondansetron HCl (Zofran Injection) 4 mg IVPUSH Q6H PRN PRN Reason: NAUSEA AND/OR VOMITING Oxycodone HCl (Roxicodone -) 5 mg PO Q4H PRN PRN Reason: MILD PAIN Stop: 08/10/17 19:47 Last Admin: 08/09/17 22:01 Dose: 5 mg Pantoprazole Sodium (Protonix -) 40 mg PO DAILY [facility] Promethazine HCl (Phenergan Injection -) 12.5 mg IVPB Q6H PRN PRN Reason: NAUSEA-FOR RESCUE AFTER 15 MIN Rifaximin (Xifaxan -) 550 mg PO BID [facility] Last Admin: 08/09/17 22:00 Dose: 550 mg Sertraline HCl (Zoloft -) 25 mg PO DAILY [facility] Spironolactone (Aldactone -) 25 mg PO BID [facility] Last Admin: 08/09/17 22:01 Dose: 25 mg Thiamine HCl (Vitamin B1 -) 100 mg PO DAILY [facility] Triamcinolone Acetonide (Aristocort 0.1% Ointment -) 1 applic TP BID [facility] Last Admin: 08/09/17 21:59 Dose: 1 applic - Objective Vital Signs: Vital Signs Temperature 98.4 F 08/10/17 09:00 Pulse Rate 86 08/10/17 09:00 Respiratory Rate 18 08/10/17 09:00 Blood Pressure 130/65 08/10/17 09:00 O2 Sat by Pulse Oximetry (%) 95 08/09/17 21:00 Constitutional: Yes: Well Nourished, No Distress, Calm Cardiovascular: Yes: Regular Rate and Rhythm Respiratory: Yes: Regular Gastrointestinal: Yes: Normal Bowel Sounds, Abdomen, Obese Musculoskeletal: Yes: WNL Extremities: Yes: WNL Edema: Yes Edema: LLE: Trace, RLE: Trace Peripheral Pulses WNL: Yes Neurological: Yes: Alert, Oriented Psychiatric: Yes: Alert, Oriented Labs: CBC, BMP 08/10/17 09:24 08/10/17 09:24 INR, PTT INR 2.05 (0.82-1.09) H 08/04/17 15:35 Problem List - Problems (1) Hematuria Assessment/Plan: UA +3 blood -UC negative -Renal bladder U/S unremarkable -Urology consult appreciated -Cystoscopy unremarkable Code(s): R31.9 - HEMATURIA, UNSPECIFIED (2) Hepatic encephalopathy Assessment/Plan: -lactulose Q6H -goal to have 3-4 BM's daily -GI consult appreciated Code(s): K72.90 - HEPATIC FAILURE, UNSPECIFIED WITHOUT COMA (3) Acute kidney injury Assessment/Plan: -gentle IVF -at his baseline -Nephrology consult appreciated Code(s): N17.9 - ACUTE KIDNEY FAILURE, UNSPECIFIED (4) Alcoholic cirrhosis Code(s): K70.30 - ALCOHOLIC CIRRHOSIS OF LIVER WITHOUT ASCITES Qualifiers: Ascites presence: with ascites Qualified Code(s): K70.31 - Alcoholic cirrhosis of liver with ascites (5) Anemia Assessment/Plan: - H/H stable -guaiac all stools -repeat labs today Code(s): D64.9 - ANEMIA, UNSPECIFIED Qualifiers: Anemia type: unspecified type Qualified Code(s): D64.9 - Anemia, unspecified (6) Chronic back pain Assessment/Plan: -was on oxycodone 5 mg po Q4H PRN, was discontinued and started on gabapentin to see if his lethargy and intermittent confusion improves -it was restarted over the weekend, admits that he is definitely more lethargic and confused on it but his pain was excruciating -Increase gabapentin to 300 mg po QID and gradually taper oxycodone to the lowest dose needed. Code(s): M54.9 - DORSALGIA, UNSPECIFIED; G89.29 - OTHER CHRONIC PAIN Assessment/Plan see problem list physical therapy
[2017-08-10] MEDS: PANTOPRAZOLE 40 MG TABLET (FP) PO SCH (10:27)
[2017-08-10] MEDS: FOLIC ACID 1 MG TABLET (FP) PO SCH (10:27)
[2017-08-10] MEDS: SPIRONOLACTONE 25 MG TABLET (FP) PO SCH ×2 (10:27→21:49)
[2017-08-10] MEDS: MAGNESIUM OXIDE 400 MG TABLET (FP) PO SCH ×2 (10:27→21:50)
[2017-08-10] MEDS: GABAPENTIN 100 MG CAPSULE (FP) PO SCH ×4 (10:27→21:50)
[2017-08-10] MEDS: FUROSEMIDE 20 MG TABLET (FP) PO SCH (10:27)
[2017-08-10] MEDS: SERTRALINE HCL 25 MG TABLET (FP) PO SCH (10:28)
[2017-08-10] MEDS: THIAMINE HCL 100 MG TABLET (FP) PO SCH (10:28)
[2017-08-10] MEDS: MIDODRINE HCL 5 MG TABLET PO SCH ×3 (10:28→18:05)
[2017-08-10] MEDS: CYANOCOBALAMIN 1,000 MCG TABLET (FP) PO SCH (10:28)
[2017-08-10] MEDS: RIFAXIMIN 550 MG TABLET (UD) PO SCH ×2 (10:29→21:50)
[2017-08-10] MEDS: TRIAMCINOLONE ACET 0.1% OINT 15 GM TUBE TP SCH ×2 (10:30→21:49)
[2017-08-10] MEDS: BETAMETHASONE DIPR 0.05% OINTMENT 15 GM TUBE TP SCH ×2 (10:32→10:33)
--- NOTE | 2017-08-10 10:41 | PN ---
Progress Note (short form) - Note Progress Note: Pot op day#1.S/p Cystoscopy with reterograde pyelogram under TIVA uneventful.Patient stable.No any anesthesia related problem.Patient DC from the anesthesia care.
--- NOTE | 2017-08-10 14:30 | PN ---
Progress Note (short form) - Note Progress Note: Renal follow up for CKD/Hepatorenal syndrome Pt seen and examined at the bedside awake and alert has gross hematuria s/p procedure no abd pain, flank pain Vital Signs Temperature 98.4 F 08/10/17 09:00 Pulse Rate 86 08/10/17 09:00 Respiratory Rate 18 08/10/17 09:00 Blood Pressure 130/65 08/10/17 09:00 O2 Sat by Pulse Oximetry (%) 92 L 08/10/17 10:00 Intake & Output 08/07/17 08/08/17 08/09/17 08/10/17 23:59 23:59 23:59 23:59 Intake Total 2018 063 1700 704 Output Total 400 1140 100 Balance 1854 200 44 604 NAD RRR soft, NT/ND, + mild ascities trace LE edema CBC, BMP 08/10/17 09:24 08/10/17 09:24 Current Medications Cyanocobalamin (Vitamin B12 -) 1,000 mcg PO DAILY [facility] Last Admin: 08/10/17 10:28 Dose: 1,000 mcg Fentanyl (Sublimaze Injection -) 25 mcg IVPUSH [id number] PRN PRN Reason: PAIN Folic Acid (Folic Acid -) 1 mg PO DAILY [facility] Last Admin: 08/10/17 10:27 Dose: 1 mg Furosemide (Lasix -) 20 mg PO DAILY [facility] Last Admin: 08/10/17 10:27 Dose: 20 mg Gabapentin (Neurontin -) 300 mg PO QID [facility] Last Admin: 08/10/17 14:27 Dose: 300 mg Dextrose/Sodium Chloride (D5-1/2ns -) 1,000 mls @ 42 mls/hr IV ASDIR [facility] Last Admin: 08/09/17 21:58 Dose: 42 mls/hr Ketoconazole (Nizoral 2% Shampoo -) 1 applic TP Q72H [facility] Lactulose (Cephulac (Oral Use)) 20 gm PO Q6HPO [facility] Last Admin: 08/10/17 12:38 Dose: 20 gm Magnesium Oxide (Mag-Ox -) 400 mg PO BID [facility] Last Admin: 08/10/17 10:27 Dose: 400 mg Midodrine (Proamatine -) 5 mg PO TID-MID [facility] Last Admin: 08/10/17 14:27 Dose: 5 mg Ondansetron HCl (Zofran Injection) 4 mg IVPUSH Q6H PRN PRN Reason: NAUSEA AND/OR VOMITING Oxycodone HCl (Roxicodone -) 5 mg PO Q4H PRN PRN Reason: MILD PAIN Stop: 08/10/17 19:47 Last Admin: 08/09/17 22:01 Dose: 5 mg Pantoprazole Sodium (Protonix -) 40 mg PO DAILY [facility] Last Admin: 08/10/17 10:27 Dose: 40 mg Promethazine HCl (Phenergan Injection -) 12.5 mg IVPB Q6H PRN PRN Reason: NAUSEA-FOR RESCUE AFTER 15 MIN Rifaximin (Xifaxan -) 550 mg PO BID [facility] Last Admin: 08/10/17 10:29 Dose: 550 mg Sertraline HCl (Zoloft -) 25 mg PO DAILY [facility] Last Admin: 08/10/17 10:28 Dose: 25 mg Spironolactone (Aldactone -) 25 mg PO BID [facility] Last Admin: 08/10/17 10:27 Dose: 25 mg Thiamine HCl (Vitamin B1 -) 100 mg PO DAILY [facility] Last Admin: 08/10/17 10:28 Dose: 100 mg Triamcinolone Acetonide (Aristocort 0.1% Ointment -) 1 applic TP BID [facility] Last Admin: 08/10/17 10:30 Dose: 1 applic 52 year old gentleman well known to our service with PMhx of alocholic liver cirrhosis, CKD (hepato-renal syndrome), Depression, Psoriasis who presented with gross hematuria x 3 day at home. #Gross Hematuria pt is having hematuria but s/p cysto so it is to be expected continue to monitor no pathology found on cysto following #CKD Renal function stable Continue Lasix/Aldactone Trend BUN/cr and daily weights #Cirrhosis GI following supportive care #Anemia trend cbc transfuse as needed Ronaldo Gonzalez Do
[2017-08-10] MEDS: oxyCODONE HCL 5 MG TABLET PO PRN (16:26)
[2017-08-10 18:33] LABS: URINE APPEARANCE SLCLOUDY; URINE BILIRUBIN NEGATIVE (NEGATIVE); URINE BLOOD 3+ (NEGATIVE); URINE COLOR AMBER; URINE GLUCOSE (UA) NEGATIVE (NEGATIVE); URINE KETONE NEGATIVE (NEGATIVE); URINE LEUK ESTERASE NEGATIVE (NEGATIVE); URINE NITRITE NEGATIVE (NEGATIVE); URINE UROBILINOGEN NEGATIVE mg/dL (0.2-1.0)
[2017-08-10 18:35] LABS: URINE PROTEIN 1+ (NEGATIVE)
[2017-08-10 18:43] LABS: EPI CELLS RARE /HPF (FEW); URINE BACTERIA RARE /hpf (NONE SEEN); URINE MUCUS RARE
[2017-08-10] MEDS ORDERED: PT OWN MED DRAWER 7, Y5N ONE (21:39)
[2017-08-10] MEDS: DEXTROSE 5%-0.45% SALINE 1,000 ML IV SCH ×2 (21:48→23:58)
[2017-08-11] MEDS: LACTULOSE 20 GM/30 ML UDC (FOR ORAL USE ONLY) PO SCH ×3 (06:21→18:00)
[2017-08-11 07:44] LABS: BASO % 0.8 % (0-2.0); HEMATOCRIT 31.5 % (35.4-49); HEMOGLOBIN 10.5 GM/dL (11.7-16.9); LYMPH % 28.3 % (8-40); MCH 32.4 pg (25.7-33.7); MCHC 33.3 g/dl (32.0-35.9); MEAN CELL VOLUME 97.3 fl (80-96); NEUT % 52.9 % (42.8-82.8); PLATELET COUNT 87 K/MM3 (134-434); RBC 3.24 M/mm3 (4.00-5.60); RDW 15.3 % (11.9-15.9)
[2017-08-11 08:11] LABS: ANION GAP 12 (8-16); BLOOD UREA NITROGEN 13 mg/dL (7-18); CALCIUM 9.5 mg/dL (8.5-10.1); CHLORIDE 97 mmol/L (98-107); CO2 27 mmol/L (21-32); CREATININE 1.2 mg/dL (0.7-1.3); GLUCOSE,RANDOM 112 mg/dL (74-106); POTASSIUM 4.4 mmol/L (3.5-5.1); SODIUM 136 mmol/L (136-145)
[2017-08-11] MEDS ORDERED: KETOCONAZOLE 2 % SHAMPOO 120 ML BOTTLE TP SCH (10:00)
[2017-08-11] MEDS ORDERED: PT OWN MED DRAWER 7, Y5N ONE ×3 (10:40→22:38)
[2017-08-11] MEDS: THIAMINE HCL 100 MG TABLET (FP) PO SCH (10:51)
[2017-08-11] MEDS: SERTRALINE HCL 25 MG TABLET (FP) PO SCH (10:52)
[2017-08-11] MEDS: FUROSEMIDE 20 MG TABLET (FP) PO SCH (10:52)
[2017-08-11] MEDS: SPIRONOLACTONE 25 MG TABLET (FP) PO SCH ×2 (10:52→21:52)
[2017-08-11] MEDS: MAGNESIUM OXIDE 400 MG TABLET (FP) PO SCH ×2 (10:52→21:52)
[2017-08-11] MEDS: GABAPENTIN 100 MG CAPSULE (FP) PO SCH ×4 (10:52→21:52)
[2017-08-11] MEDS: CYANOCOBALAMIN 1,000 MCG TABLET (FP) PO SCH (10:52)
[2017-08-11] MEDS: FOLIC ACID 1 MG TABLET (FP) PO SCH (10:53)
[2017-08-11] MEDS: PANTOPRAZOLE 40 MG TABLET (FP) PO SCH (10:53)
[2017-08-11] MEDS: RIFAXIMIN 550 MG TABLET (UD) PO SCH ×2 (10:53→21:53)
[2017-08-11] MEDS: MIDODRINE HCL 5 MG TABLET PO SCH ×3 (10:54→18:01)
[2017-08-11] MEDS: TRIAMCINOLONE ACET 0.1% OINT 15 GM TUBE TP SCH ×2 (12:49→21:52)
--- NOTE | 2017-08-11 13:47 | PN ---
Progress Note, Physician Chief Complaint: Hematuria, Confusion, weakness History of Present Illness: Patient well known to us from the past liver cirrhosis 2/2 to alcohol abuse, incomplete rehab x 2 UA+3 blood UC negative h/h stable stool ob negative cystoscopy unremarkable Cr- at baseline - Current Medication List Current Medications: Active Medications Cyanocobalamin (Vitamin B12 -) 1,000 mcg PO DAILY [facility] Last Admin: 08/11/17 10:52 Dose: 1,000 mcg Fentanyl (Sublimaze Injection -) 25 mcg IVPUSH [id number] PRN PRN Reason: PAIN Folic Acid (Folic Acid -) 1 mg PO DAILY [facility] Last Admin: 08/11/17 10:53 Dose: 1 mg Furosemide (Lasix -) 20 mg PO DAILY [facility] Last Admin: 08/11/17 10:52 Dose: 20 mg Gabapentin (Neurontin -) 300 mg PO QID [facility] Last Admin: 08/11/17 10:52 Dose: 300 mg Ketoconazole (Nizoral 2% Shampoo -) 1 applic TP Q72H [facility] Lactulose (Cephulac (Oral Use)) 20 gm PO Q6HPO [facility] Last Admin: 08/11/17 12:49 Dose: 20 gm Magnesium Oxide (Mag-Ox -) 400 mg PO BID [facility] Last Admin: 08/11/17 10:52 Dose: 400 mg Midodrine (Proamatine -) 5 mg PO TID-MID [facility] Last Admin: 08/11/17 10:54 Dose: 5 mg Ondansetron HCl (Zofran Injection) 4 mg IVPUSH Q6H PRN PRN Reason: NAUSEA AND/OR VOMITING Pantoprazole Sodium (Protonix -) 40 mg PO DAILY [facility] Last Admin: 08/11/17 10:53 Dose: 40 mg Promethazine HCl (Phenergan Injection -) 12.5 mg IVPB Q6H PRN PRN Reason: NAUSEA-FOR RESCUE AFTER 15 MIN Rifaximin (Xifaxan -) 550 mg PO BID [facility] Last Admin: 08/11/17 10:53 Dose: 550 mg Sertraline HCl (Zoloft -) 25 mg PO DAILY [facility] Last Admin: 08/11/17 10:52 Dose: 25 mg Spironolactone (Aldactone -) 25 mg PO BID [facility] Last Admin: 08/11/17 10:52 Dose: 25 mg Thiamine HCl (Vitamin B1 -) 100 mg PO DAILY [facility] Last Admin: 08/11/17 10:51 Dose: 100 mg Triamcinolone Acetonide (Aristocort 0.1% Ointment -) 1 applic TP BID [facility] Last Admin: 08/11/17 12:49 Dose: 1 applic - Objective Vital Signs: Vital Signs Temperature 98.3 F 08/11/17 09:00 Pulse Rate 119 H 08/11/17 09:00 Respiratory Rate 08/11/17 09:00 Blood Pressure 109/53 08/11/17 09:00 O2 Sat by Pulse Oximetry (%) 94 L 08/10/17 21:00 Constitutional: Yes: Well Nourished, No Distress, Calm Cardiovascular: Yes: Regular Rate and Rhythm Respiratory: Yes: Regular Gastrointestinal: Yes: Normal Bowel Sounds, Soft, Abdomen, Obese Musculoskeletal: Yes: WNL Extremities: Yes: WNL Edema: No Peripheral Pulses WNL: Yes Integumentary: Yes: Rash (diffuse psoriatic rash) Neurological: Yes: Alert, Oriented Psychiatric: Yes: Alert, Oriented Labs: CBC, BMP 08/11/17 07:30 08/11/17 07:30 INR, PTT INR 2.05 (0.82-1.09) H 08/04/17 15:35 Problem List - Problems (1) Hematuria Assessment/Plan: UA +3 blood -UC negative -Renal bladder U/S unremarkable -Urology consult appreciated -Cystoscopy unremarkable Code(s): R31.9 - HEMATURIA, UNSPECIFIED (2) Hepatic encephalopathy Assessment/Plan: -lactulose Q6H -goal to have 3-4 BM's daily -GI consult appreciated Code(s): K72.90 - HEPATIC FAILURE, UNSPECIFIED WITHOUT COMA (3) Acute kidney injury Assessment/Plan: -gentle IVF -Cr at baseline -Nephrology consult appreciated Code(s): N17.9 - ACUTE KIDNEY FAILURE, UNSPECIFIED (4) Alcoholic cirrhosis Assessment/Plan: Patient has not had any alcohol since Code(s): K70.30 - ALCOHOLIC CIRRHOSIS OF LIVER WITHOUT ASCITES Qualifiers: Ascites presence: with ascites Qualified Code(s): K70.31 - Alcoholic cirrhosis of liver with ascites (5) Anemia Assessment/Plan: - H/H stable Code(s): D64.9 - ANEMIA, UNSPECIFIED Qualifiers: Anemia type: unspecified type Qualified Code(s): D64.9 - Anemia, unspecified (6) Chronic back pain Assessment/Plan: -gabapentin increased to 300 mg po QID -Oxycodone reduced to 5 mg po Q8H PRN Code(s): M54.9 - DORSALGIA, UNSPECIFIED; G89.29 - OTHER CHRONIC PAIN Assessment/Plan see problem list physical therapy d/c home in AM with VNS and PT
--- NOTE | 2017-08-11 15:32 | PN ---
Progress Note (short form) - Note Progress Note: Renal follow up for CKD/Hepatorenal syndrome Pt seen and examined at the bedside awake and alert has gross hematuria s/p procedure no abd pain, flank pain Vital Signs Temperature 98.4 F 08/10/17 09:00 Pulse Rate 86 08/10/17 09:00 Respiratory Rate 18 08/10/17 09:00 Blood Pressure 130/65 08/10/17 09:00 O2 Sat by Pulse Oximetry (%) 92 L 08/10/17 10:00 Intake & Output 08/07/17 08/08/17 08/09/17 08/10/17 23:59 23:59 23:59 23:59 Intake Total 3635 863 3373 704 Output Total 400 1140 100 Balance 1854 200 44 604 NAD RRR soft, NT/ND, + mild ascities trace LE edema CBC, BMP 08/10/17 09:24 08/10/17 09:24 Current Medications Cyanocobalamin (Vitamin B12 -) 1,000 mcg PO DAILY [facility] Last Admin: 08/10/17 10:28 Dose: 1,000 mcg Fentanyl (Sublimaze Injection -) 25 mcg IVPUSH [id number] PRN PRN Reason: PAIN Folic Acid (Folic Acid -) 1 mg PO DAILY [facility] Last Admin: 08/10/17 10:27 Dose: 1 mg Furosemide (Lasix -) 20 mg PO DAILY [facility] Last Admin: 08/10/17 10:27 Dose: 20 mg Gabapentin (Neurontin -) 300 mg PO QID [facility] Last Admin: 08/10/17 14:27 Dose: 300 mg Dextrose/Sodium Chloride (D5-1/2ns -) 1,000 mls @ 42 mls/hr IV ASDIR [facility] Last Admin: 08/09/17 21:58 Dose: 42 mls/hr Ketoconazole (Nizoral 2% Shampoo -) 1 applic TP Q72H [facility] Lactulose (Cephulac (Oral Use)) 20 gm PO Q6HPO [facility] Last Admin: 08/10/17 12:38 Dose: 20 gm Magnesium Oxide (Mag-Ox -) 400 mg PO BID [facility] Last Admin: 08/10/17 10:27 Dose: 400 mg Midodrine (Proamatine -) 5 mg PO TID-MID [facility] Last Admin: 08/10/17 14:27 Dose: 5 mg Ondansetron HCl (Zofran Injection) 4 mg IVPUSH Q6H PRN PRN Reason: NAUSEA AND/OR VOMITING Oxycodone HCl (Roxicodone -) 5 mg PO Q4H PRN PRN Reason: MILD PAIN Stop: 08/10/17 19:47 Last Admin: 08/09/17 22:01 Dose: 5 mg Pantoprazole Sodium (Protonix -) 40 mg PO DAILY [facility] Last Admin: 08/10/17 10:27 Dose: 40 mg Promethazine HCl (Phenergan Injection -) 12.5 mg IVPB Q6H PRN PRN Reason: NAUSEA-FOR RESCUE AFTER 15 MIN Rifaximin (Xifaxan -) 550 mg PO BID [facility] Last Admin: 08/10/17 10:29 Dose: 550 mg Sertraline HCl (Zoloft -) 25 mg PO DAILY [facility] Last Admin: 08/10/17 10:28 Dose: 25 mg Spironolactone (Aldactone -) 25 mg PO BID [facility] Last Admin: 08/10/17 10:27 Dose: 25 mg Thiamine HCl (Vitamin B1 -) 100 mg PO DAILY [facility] Last Admin: 08/10/17 10:28 Dose: 100 mg Triamcinolone Acetonide (Aristocort 0.1% Ointment -) 1 applic TP BID [facility] Last Admin: 08/10/17 10:30 Dose: 1 applic 52 year old gentleman well known to our service with PMhx of alocholic liver cirrhosis, CKD (hepato-renal syndrome), Depression, Psoriasis who presented with gross hematuria x 3 day at home. #Gross Hematuria repeat UA showed hematuria but it is right after procedure can expect some degree of hematuria for ~1 week post procedure Cysto w/o any pathology #CKD Renal function stable at this time Continue Lasix/Aldactone can titrate dose of diuretics based on volume status can d/c IVF as pt is tolerating oral diet #Cirrhosis GI following supportive care #Anemia trend cbc transfuse as needed Ronaldo Gonzalez Do
--- NOTE | 2017-08-11 21:03 | DS ---
Physical Examination Vital Signs: Vital Signs Temperature 97.9 F 08/11/17 19:00 Pulse Rate 84 08/11/17 19:00 Respiratory Rate 18 08/11/17 19:00 Blood Pressure 113/62 08/11/17 19:00 O2 Sat by Pulse Oximetry (%) 98 08/11/17 09:00 Constitutional: Yes: Well Nourished, No Distress, Calm Cardiovascular: Yes: Regular Rate and Rhythm Respiratory: Yes: Regular Gastrointestinal: Yes: Normal Bowel Sounds, Soft, Abdomen, Obese, Tenderness ( RUQ) Musculoskeletal: Yes: Muscle Weakness Extremities: Yes: WNL Edema: No Peripheral Pulses WNL: Yes Neurological: Yes: Alert, Oriented Psychiatric: Yes: Alert, Oriented Labs: CBC, BMP 08/11/17 07:30 08/11/17 07:30 Discharge Summary Reason For Visit: HEPATIC EENCEPHALOPATHY Current Active Problems Bleeding (Acute) Chronic back pain (Acute) Hematuria (Acute) Hepatic encephalopathy (Acute) Hospital Course: his is a 52 year old male with a significant past medical history of ESLD, alcoholic cirrhosis, esophageal varices who presented to the ED with after noticing blood in toilet. He had both urinated and moved his bowels and thus was unsure of the source of the blood. Pt denies abdominal pain, nausea, vomiting. reports that she noticed he has been a little more confused with a poor appetite since his DC from the hospital on 07/28. Condition: Fair - Instructions Referrals: Prakash Ashley MD [Primary Care Provider] - Disposition: VNS/HOME HEALTH CARE - Home Medications Comprehensive Discharge Medication List: Ambulatory Orders Folic Acid - 1 mg PO DAILY #30 tablet 06/23/17 Midodrine HCl [Proamatine -] 5 mg PO TID-MID tablet 07/20/17 Betamethasone Dipropionate [Diprosone 0.05% Ointment -] 1 applic TP BID #1 tube 07/28/17 Cyanocobalamin [Vitamin B12 -] 100 mcg PO DAILY #30 tablet 07/28/17 Diazepam [Valium] 5 mg PO HS #30 tablet MDD 1 07/28/17 Furosemide [Lasix -] 40 mg PO DAILY #30 tablet 07/28/17 Ketoconazole 2% Shampoo [Nizoral 2% Shampoo -] 1 applic TP Q72H #1 bottle Lactulose (Oral Use) [Cephulac -] 20 gm PO TID #2700 ml 07/28/17 Magnesium Oxide [Mag-Ox -] 400 mg PO BID #60 tablet 07/28/17 Ondansetron [Zofran -] 4 mg PO Q6HPO PRN #120 tablet 07/28/17 Oxycodone HCl [Roxicodone -] 5 mg PO TID PRN #90 tablet MDD 3 07/28/17 Pantoprazole Sodium [Protonix -] 40 mg PO DAILY #30 tablet.ec 07/28/17 Rifaximin [Xifaxan -] 550 mg PO BID #60 tablet 07/28/17 Sertraline HCl [Zoloft -] 25 mg PO DAILY #30 tablet 07/28/17 Spironolactone [Aldactone -] 50 mg PO BID #60 tablet 07/28/17 Thiamine HCl [Vitamin B1] 100 mg PO DAILY #30 tablet 07/28/17 Triamcinolone 0.1% Ointment [Aristocort 0.1% Ointment -] 1 applic TP BID #45 applic 07/28/17
[2017-08-12] MEDS: LACTULOSE 20 GM/30 ML UDC (FOR ORAL USE ONLY) PO SCH ×3 (00:12→11:33)
[2017-08-12] MEDS: oxyCODONE HCL 5 MG TABLET PO PRN ×2 (03:41→11:33)
[2017-08-12 09:05] VITALS: BP 137/81; PULSE 92; TEMP 98.4
[2017-08-12] MEDS: GABAPENTIN 100 MG CAPSULE (FP) PO SCH ×2 (10:35→13:18)
[2017-08-12] MEDS: PANTOPRAZOLE 40 MG TABLET (FP) PO SCH (10:35)
[2017-08-12] MEDS: CYANOCOBALAMIN 1,000 MCG TABLET (FP) PO SCH (10:36)
[2017-08-12] MEDS: SERTRALINE HCL 25 MG TABLET (FP) PO SCH (10:36)
[2017-08-12] MEDS: THIAMINE HCL 100 MG TABLET (FP) PO SCH (10:36)
[2017-08-12] MEDS: SPIRONOLACTONE 25 MG TABLET (FP) PO SCH (10:36)
[2017-08-12] MEDS: MAGNESIUM OXIDE 400 MG TABLET (FP) PO SCH (10:36)
[2017-08-12] MEDS: FUROSEMIDE 20 MG TABLET (FP) PO SCH (10:36)
[2017-08-12] MEDS: FOLIC ACID 1 MG TABLET (FP) PO SCH (10:36)
[2017-08-12] MEDS: MIDODRINE HCL 5 MG TABLET PO SCH ×2 (10:37→14:29)
[2017-08-12] MEDS: RIFAXIMIN 550 MG TABLET (UD) PO SCH (10:38)
--- NOTE | 2017-08-12 12:09 | PN ---
Progress Note, Physician Chief Complaint: patient is awake alert in bed - Current Medication List Current Medications: Active Medications Cyanocobalamin (Vitamin B12 -) 1,000 mcg PO DAILY [facility] Last Admin: 08/12/17 10:36 Dose: 1,000 mcg Fentanyl (Sublimaze Injection -) 25 mcg IVPUSH [id number] PRN PRN Reason: PAIN Folic Acid (Folic Acid -) 1 mg PO DAILY [facility] Last Admin: 08/12/17 10:36 Dose: 1 mg Furosemide (Lasix -) 20 mg PO DAILY [facility] Last Admin: 08/12/17 10:36 Dose: 20 mg Gabapentin (Neurontin -) 300 mg PO QID [facility] Last Admin: 08/12/17 10:35 Dose: 300 mg Lactulose (Cephulac (Oral Use)) 20 gm PO Q6HPO [facility] Last Admin: 08/12/17 11:33 Dose: 20 gm Magnesium Oxide (Mag-Ox -) 400 mg PO BID [facility] Last Admin: 08/12/17 10:36 Dose: 400 mg Midodrine (Proamatine -) 5 mg PO TID-MID [facility] Last Admin: 08/12/17 10:37 Dose: Not Given Ondansetron HCl (Zofran Injection) 4 mg IVPUSH Q6H PRN PRN Reason: NAUSEA AND/OR VOMITING Oxycodone HCl (Roxicodone -) 5 mg PO Q8H PRN PRN Reason: PAIN LEVEL 6-10 Last Admin: 08/12/17 11:33 Dose: 5 mg Pantoprazole Sodium (Protonix -) 40 mg PO DAILY [facility] Last Admin: 08/12/17 10:35 Dose: 40 mg Promethazine HCl (Phenergan Injection -) 12.5 mg IVPB Q6H PRN PRN Reason: NAUSEA-FOR RESCUE AFTER 15 MIN Rifaximin (Xifaxan -) 550 mg PO BID [facility] Last Admin: 08/12/17 10:38 Dose: 550 mg Sertraline HCl (Zoloft -) 25 mg PO DAILY [facility] Last Admin: 08/12/17 10:36 Dose: 25 mg Spironolactone (Aldactone -) 25 mg PO BID [facility] Last Admin: 08/12/17 10:36 Dose: 25 mg Thiamine HCl (Vitamin B1 -) 100 mg PO DAILY [facility] Last Admin: 08/12/17 10:36 Dose: 100 mg Triamcinolone Acetonide (Aristocort 0.1% Ointment -) 1 applic TP BID [facility] Last Admin: 08/11/17 21:52 Dose: 1 applic - Objective Vital Signs: Vital Signs Temperature 98.4 F 08/12/17 09:03 Pulse Rate 92 H 08/12/17 09:03 Respiratory Rate 18 08/12/17 09:03 Blood Pressure 137/81 08/12/17 09:03 O2 Sat by Pulse Oximetry (%) 98 08/11/17 21:00 Constitutional: Yes: Calm Cardiovascular: Yes: Regular Rate and Rhythm, S1, S2 Respiratory: Yes: CTA Bilaterally, Diminished (at bases) Gastrointestinal: Yes: Normal Bowel Sounds, Soft Edema: Yes Integumentary: Yes: Rash (psoaritic rash) Neurological: Yes: Alert, Oriented Labs: CBC, BMP 08/11/17 07:30 08/11/17 07:30 INR, PTT INR 2.05 (0.82-1.09) H 08/04/17 15:35 Problem List - Problems (1) Hepatic encephalopathy Assessment/Plan: ammonia ryanne shelton on lactulose for 3 BM perday Code(s): K72.90 - HEPATIC FAILURE, UNSPECIFIED WITHOUT COMA (2) Chronic back pain Assessment/Plan: gabapentin and oxycodone Code(s): M54.9 - DORSALGIA, UNSPECIFIED; G89.29 - OTHER CHRONIC PAIN (3) Alcoholic cirrhosis Assessment/Plan: rifaximin Code(s): K70.30 - ALCOHOLIC CIRRHOSIS OF LIVER WITHOUT ASCITES Qualifiers: Ascites presence: with ascites Qualified Code(s): K70.31 - Alcoholic cirrhosis of liver with ascites (4) Hematuria Assessment/Plan: s/p cystocopy unremarkable h/h stable Code(s): R31.9 - HEMATURIA, UNSPECIFIED Assessment/Plan discharge home with VNS/PT
[2017-08-12] MEDS: TRIAMCINOLONE ACET 0.1% OINT 15 GM TUBE TP SCH (13:19)
--- NOTE | 2017-08-12 16:16 | PN ---
Progress Note (short form) - Note Progress Note: Renal follow up for CKD/Hepatorenal syndrome Pt seen and examined at the bedside prior to discharge reports continued pain on right upper abd and back that is controlled with pain meds no sob, chest pain, N/V making urine no leg swelling Vital Signs Temperature 98.4 F 08/12/17 09:03 Pulse Rate 92 H 08/12/17 09:03 Respiratory Rate 18 08/12/17 09:03 Blood Pressure 137/81 08/12/17 09:03 O2 Sat by Pulse Oximetry (%) 98 08/11/17 21:00 Intake & Output 08/09/17 08/10/17 08/11/17 08/12/17 23:59 23:59 23:59 23:59 Intake Total 1184 1408 2040 390 Output Total 1140 100 300 Balance 44 1308 1740 390 NAD RRR soft, NT/ND, + mild ascities trace LE edema CBC, BMP 08/11/17 07:30 08/11/17 07:30 52 year old gentleman well known to our service with PMhx of alocholic liver cirrhosis, CKD (hepato-renal syndrome), Depression, Psoriasis who presented with gross hematuria x 3 day at home. #Gross Hematuria moitor urine as outpatient repeat UA in 1 week as outpatient #CKD Renal function stable at this time Continue Lasix/Aldactone at the present doses (reduced as volume status much improved) #Cirrhosis GI following supportive care #Anemia trend cbc transfuse as needed Ronaldo Gonzalez Do
== END 2017-08-12 14:40 | disposition home health service (06) | DRG 441 ==
LOC: JER 13:50 → JERBED 19:35 → J5S 08-05 14:43 → OBSVTOIN 08-06 14:50
PROVIDERS: ADMIT Internal Medicine; ATTEND Family Medicine
PROC: BT14ZZZ Fluoroscopy of Kidneys, Ureters and Bladder (ICD-10-PCS; 2017-08-09)
PROC: 0TJB8ZZ Inspection of Bladder, Via Natural or Artificial Opening Endoscopic (ICD-10-PCS; principal; 2017-08-09 15:30)
DX: K72.00 Acute and subacute hepatic failure without coma (principal); K76.7 Hepatorenal syndrome; I85.10 Secondary esophageal varices without bleeding; N17.9 Acute kidney failure, unspecified; N18.9 Chronic kidney disease, unspecified; K70.31 Alcoholic cirrhosis of liver with ascites; D64.9 Anemia, unspecified; R31.0 Gross hematuria; M54.9 Dorsalgia, unspecified; E86.0 Dehydration; R42 Dizziness and giddiness
CPT/HCPCS: 36415; 71045-TC; 76000-TC; 76775-TC; 76856-TC; 80048; 80053; 81003; 81015; 82140; 82272; 82550; 83516; 83520; 83735; 84100; 84484; 85025; 85610; 86038; 86225; 86256; 86704; 86706; 86708; 86803; 86850; 86900; 86901; 87086; 87340; 87389; 93005; 93010; 94760; 97116-GP; 97161-GP; 99285-25; G0378

== ENCOUNTER 2017-11-03 09:27 | Inpatient (IN) | payer BC ==
--- NOTE | 2017-11-03 09:44 | PDOC ---
History of Present Illness - General History Source: Patient, Family, Spouse Exam Limitations: No Limitations - History of Present Illness Initial Comments: 11/03/17 10:26 The patient is a 52 year old male with a significant past medical history of alcohol cirrhosis/ascites, liver failure, encephalopathy, varices, psoriasis, anemia, hypertension, and depression who presents to the emergency department with increased twitching, chills, nausea, vomiting, and weakness since yesterday. Patient reports visiting GI, Dr. Craig yesterday morning, and states he began to feel unwell s/p visit. Patient reports developing nausea and vomiting(nonbloody/nonbilious), but denies any abdominal pain, diarrhea, or constipation. As per , patient began to feel weak, and subsequently fell. Patient reports breaking the fall with his hands and knees. He denies any head trauma, LOC, changes in vision, neck or back pain. As per , the patient appears more jaundiced than usual and has increased swelling in his legs. reports patient was noted to have an outpatient ammonia level of 144 several weeks ago, and states there was no change in his Lactulose dose. Patient reports increased erythema to the lower abdomen, which has been spreading to his lower extremities. Patient notes a subjective fever, chills, but denies any cough, headache, or dizziness. He denies any chest pain, shortness of breath, diaphoresis, or palpitations. He denies any dysuria, hematuria, frequency, or urgency. He denies any recent travel or sick contacts. Allergies: NKDA Past surgical history: None reported. Social history: Recovering alcoholic. No reported cigarette or drug use. PCP: Dr. Ashley GI: Dr. Craig Lead Customer Service Representative: Dr. Gonzalez Transplant Doc: Dr. Flynn <Codie Olea - Last Filed: 11/03/17 14:55> - General History Source: Patient, Family Exam Limitations: No Limitations <Naye Corey - Last Filed: 11/03/17 18:45> - General Chief Complaint: Weakness Stated Complaint: WEAKNESS Time Seen by Provider: 11/03/17 09:38 Past History <Codie Olea - Last Filed: 11/03/17 14:55> - Past Medical History Anemia: Yes Asthma: No Cancer: No Cardiac Disorders: Yes CVA: No COPD: No CHF: No DVT: No Dementia: No Diabetes: No GI Disorders: Yes (pancreatitis) Disorders: No HTN: Yes Hypercholesterolemia: No Kidney Stones: No Liver Disease: Yes (cirrhosis, acites) Psychiatric Problems: Yes (depression) Seizures: No Thyroid Disease: Yes - Reproductive History Testicular Surgery: No - Suicide/Smoking/Psychosocial Hx Smoking History: Never smoked Have you smoked in the past 12 months: No 'Breaking Loose' booklet given: 07/22/17 Hx Alcohol Use: Yes (vodka 1 pint daily) Drug/Substance Use Hx: No Substance Use Type: None Hx Substance Use Treatment: No <Naye Corey - Last Filed: 11/03/17 18:45> - Past Medical History Allergies/Adverse Reactions: Allergies Allergy/AdvReac Type Severity Reaction Status Date / Time No Known Allergies Allergy Verified 11/03/17 09:42 Home Medications: Ambulatory Orders Folic Acid - 1 mg PO DAILY #30 tablet 06/23/17 Betamethasone Dipropionate [Diprosone 0.05% Ointment -] 1 applic TP BID #1 tube 07/28/17 Cyanocobalamin [Vitamin B12 -] 100 mcg PO DAILY #30 tablet 07/28/17 Furosemide [Lasix -] 40 mg PO DAILY #30 tablet 07/28/17 Ketoconazole 2% Shampoo [Nizoral 2% Shampoo -] 1 applic TP Q72H #1 bottle Magnesium Oxide [Mag-Ox -] 400 mg PO BID #60 tablet 07/28/17 Pantoprazole Sodium [Protonix -] 40 mg PO DAILY #30 tablet.ec 07/28/17 Spironolactone [Aldactone -] 50 mg PO BID #60 tablet 07/28/17 Thiamine HCl [Vitamin B1] 100 mg PO DAILY #30 tablet 07/28/17 Gabapentin 300 mg PO QID #120 capsule MDD 4 08/12/17 Midodrine HCl [Proamatine -] 5 mg PO TID-MID #30 tablet MDD 3 08/12/17 Rifaximin [Xifaxan -] 550 mg PO BID #60 tablet MDD 2 08/12/17 Sertraline HCl [Zoloft -] 25 mg PO DAILY #30 tablet MDD 1 08/12/17 Lactulose (Oral Use) [Cephulac -] 35 gm PO QID 11/03/17 oxyCODONE HCL [Roxicodone -] 5 mg PO TID PRN MDD 3 11/03/17 Review of Systems - Review of Systems Able to Perform ROS?: Yes Comments:: 11/03/17 10:27 GENERAL/CONSTITUTIONAL: Yes Fever, chills, weakness, increased twitching . No: loss of appetite. HEAD, EYES, EARS, NOSE AND THROAT: No: change in vision, ear pain, discharge, sore throat, throat swelling. CARDIOVASCULAR: No: chest pain, lightheadedness, palpitations, syncope RESPIRATORY: No: cough, shortness of breath, wheezing, hemoptysis, stridor. GASTROINTESTINAL: Yes nausea, vomiting. No: abdominal cramping, diarrhea, rectal bleeding, constipation. GENITOURINARY: No: dysuria, hematuria, frequency, urgency, flank pain. MUSCULOSKELETAL: Yes: lower extremity swelling. No: back pain, neck pain, joint pain, muscle pain SKIN AND BREASTS: Yes: jaundice, +increased erythema to abdomen radiating to legs. No: pallor or easy bruising. NEUROLOGIC: No: headache, vertigo, paresthesias ENDOCRINE: No: unexplained weight gain or loss HEMATOLOGIC/LYMPHATIC: No: anemia, easy bleeding, swelling nodes <Oela,Giomilsy - Last Filed: 11/03/17 14:55> *Physical Exam - Vital Signs Last Vital Signs Temp Pulse Resp BP Pulse Ox 98.5 F 102 H 20 133/73 95 11/03/17 09:43 11/03/17 09:43 11/03/17 09:43 11/03/17 09:43 11/03/17 09:43 - Physical Exam Comments: 11/03/17 10:28 GENERAL: Mild distress. Jaundice. Asterixis. Febrile. HEAD: Normal with no signs of trauma. EYES: Scleral icterus. PERRLA, EOMI, conjunctiva clear. ENT: Ears normal, nares patent, oropharynx clear without exudates. Moist mucous membranes. NECK: Normal range of motion, supple without lymphadenopathy, JVD, or masses. LUNGS: Breath sounds equal, clear to auscultation bilaterally. No wheezes, and no crackles. HEART: Murmur at left sternal border. Regular rate and rhythm, no rub or gallop. ABDOMEN: Soft, nontender, normoactive bowel sounds. No guarding, no rebound. EXTREMITIES: 1+ pitting edema bilateral lower extremities. Normal range of motion. No clubbing or cyanosis. No tenderness. NEUROLOGICAL: Cranial nerves II through XII grossly intact. Normal speech. No focal neurological deficits. MUSCULOSKELETAL: Back non-tender to palpation, no CVA tenderness SKIN: Erythema and warmth across lower abdomen with patches extending to the right leg. Warm, Dry, normal turgor. <Codie Olea - Last Filed: 11/03/17 14:55> ED Treatment Course - LABORATORY CBC & Chemistry Diagram: 11/03/17 10:10 11/03/17 10:10 - RADIOLOGY Radiograph Interpretation: 11/03/17 14:55 EXAM: US Abdomen INTERPRETED BY: Dr. Baca REVIEWED BY: Dr. Corey IMPRESSION: Splenomegaly. Echogenic liver suggestive of fatty infiltration versus hepatocellular disease. Please correlate with liver enzymes. Moderate amount of free fluid/ascites in the 4 quadrants, bilateral upper and bilateral lower quadrants. EXAM: CXR INTERPRETED BY: Dr. Farooq REVIEWED BY: Dr. Corey IMPRESSION: No acute chest pathology. EXAM: Head CT INTERPRETED BY: REVIEWED BY: Dr. Corey IMPRESSION: <Codie Olea - Last Filed: 11/03/17 14:55> - LABORATORY CBC & Chemistry Diagram: 11/03/17 10:10 11/03/17 10:10 <Naye Corey - Last Filed: 11/03/17 18:45> Medical Decision Making - Medical Decision Making 11/03/17 10:57 First call placed to Dr. Craig at 10:57. Awaiting call back. Case discussed with Dr. Craig at 11:05. Case discussed with Dr. Ashley at 11:57. <Codie Olea - Last Filed: 11/03/17 14:55> - Critical Care Time Total Critical Care Time (minutes): 35 Critical Care Statement: The care of this patient involved high complexity decision making to prevent further life threatening deterioration of the patient 's condition and/or to evaluate & treat vital organ system(s) failure or risk of failure. - Medical Decision Making Mr Gottlieb is a 52 -year-old male with a history of end-stage liver disease, history of hepatic encephalopathy presenting to emergency department with a complaint of twitching. He has a rash/erythematous lesion on the lower abdomen present for the past 2 days. Unknown fevers at home. Chills at home. Patient has been twitchy and so weak that he fell yesterday. On examination: Regular rate and rhythm, murmur along left sternal border Lungs are clear No abdominal distention or tenderness Cellulitic region of the lower abdomen. 1+ pitting edema bilaterally. Patient defers her diagnosis is broad and includes: Elevated ammonia/hepatic encephalopathy, underlying infection, cellulitis, Will do: Labs, EKG, chest x-ray Blood cultures Rectal temp Empiric antibiotics as needed 11/03/17 10:53 Rectal Temp 102 Pt can not get Tylenol or Mortin per Will hang Vanc and Fluids Call placed to Dr Craig now EKG: Sinus rhythm rate of 99 bpm, axis is normal, intervals are normal, no ST elevations or depressions, artifact on the baseline. T waves upright 11/03/17 11:07 Laboratory Tests 11/03/17 11/03/17 11/03/17 10:10 10:10 10:10 WBC 26.9 H D Hgb 8.2 L D Hct 24.4 L D Plt Count 88 L INR 2.22 H Ammonia 14.51 11/03/17 11:[address] Craig. Recommends treatment for SBP in addition to treatment for cellulitis 11/03/17 12:[address] Ashley He recommends Motrin IV Will give small dose Will admit to non cardiac tele MELD score 32 Pt is ill Clinical impression: Cellulitis, initial presentation Hyponatremia, initial presentation Renal insufficiency, initial presentation <Naye Corey - Last Filed: 11/03/17 18:45> *DC/Admit/Observation/Transfer - Attestations Scribe Attestion: 11/03/17 10:29 Documentation prepared by Codie Olea, acting as medical records administrator for Naye Corey MD. <Codie Olea - Last Filed: 11/03/17 14:55> - Discharge Dispostion Admit: Yes <Naye Corey - Last Filed: 11/03/17 18:45> Diagnosis at time of Disposition: Cellulitis Qualifiers: Site of cellulitis: other site Qualified Code(s): L03.818 - Cellulitis of other sites - Discharge Dispostion Condition at time of disposition: Fair
[2017-11-03] MEDS ORDERED: VANCOMYCIN 1,000 MG in DEXTROSE 5%-WATER - 250 ML IVPB ONE (10:14)
[2017-11-03 10:31] LABS: HEMATOCRIT 24.4 % (35.4-49); HEMOGLOBIN 8.2 GM/dL (11.7-16.9); MCH 31.8 pg (25.7-33.7); MCHC 33.6 g/dl (32.0-35.9); MEAN CELL VOLUME 94.5 fl (80-96); MEAN PLT VOLUME 7.3 fl (7.5-11.1); PLATELET COUNT 88 K/MM3 (134-434); RBC 2.58 M/mm3 (4.00-5.60); WHITE BLOOD COUNT 26.9 K/mm3 (4.0-10.0)
[2017-11-03 10:43] LABS: INR 2.22 (0.82-1.09); PROTHROMBIN TIME (PATIENT) 25.1 SEC (9.98-11.88)
[2017-11-03 10:53] LABS: ALBUMIN 2.5 g/dl (3.4-5.0); ANION GAP 3 (8-16); BILIRUBIN,TOTAL 5.6 mg/dL (0.2-1.0); BLOOD UREA NITROGEN 16 mg/dL (7-18); CALCIUM 8.8 mg/dL (8.5-10.1); CHLORIDE 95 mmol/L (98-107); CO2 28 mmol/L (21-32); SODIUM 126 mmol/L (136-145); TOT PROT 8.2 g/dl (6.4-8.2)
[2017-11-03] MEDS ORDERED: VANCOMYCIN 1 GRAM (PRE-DOCKED) 1,000 MG/250 ML BAG IVPB ONE (10:53)
[2017-11-03] MEDS ORDERED: SODIUM CHLORIDE 1,000 ML IV SCH ×2 (11:00→18:11)
[2017-11-03] MEDS ORDERED: CEFTRIAXONE 1 GM in DEXTROSE 5%-WATER - 50 ML IVPB ONE (11:06)
[2017-11-03] MEDS ORDERED: CEFTRIAXONE 1 GM/50 ML BAG ONE (11:12)
[2017-11-03 11:40] LABS: ALK PHOS 156 U/L (45-117); CREATININE 1.8 mg/dL (0.7-1.3); GLUCOSE,RANDOM 133 mg/dL (74-106); SGPT/ALT 29 U/L (12-78)
[2017-11-03 11:46] LABS: POTASSIUM 4.6 mmol/L (3.5-5.1); SGOT/AST 74 U/L (15-37)
[2017-11-03 11:51] LABS: ANISOCYTOSIS 1+; MACROCYTOSIS 1+; PLATELET ESTIMATE DECREASED
[2017-11-03] MEDS ORDERED: PIPERACILLIN/TAZOB 4.5 GM 4.5 GM in DEXTROSE 5%-WATER - 100 ML IVPB ONE (12:39)
[2017-11-03] MEDS ORDERED: ACETAMINOPHEN 325 MG TABLET (FP) PO ONE (12:40)
[2017-11-03] MEDS ORDERED: ACETAMINOPHEN 325 MG TABLET (FP) ONE (12:41)
[2017-11-03] MEDS ORDERED: PIPERACILLIN/TAZOB 4.5 GM 4.5 GM/100 ML BAG IVPB ONE (12:41)
--- NOTE | 2017-11-03 13:05 | CON.GI ---
Consult Consult Specialty:: GI Reason for Consultation:: Fever, leukocytosis, altered mental status - History of Present Illness History of Present Illness: the patient is known to GI service from prior 2 admissions. He has alcoholic cirrhosis with ascites and esophageal varices. He has history of hepatic encephalopathy, hepatorenal syndrome type II and noncompliance with alcohol abstinence in the past. Due to his advanced liver disease, he was deemed not suitable for live-in rehab. The patient was seen yesterday in the office. He was awake, alert, oriented. Not in distress. he appeared cachectic, jaundiced with asterixis. He had no specific complaints. He is connected with liver transplant service at [facility]. he follows with them every 4-6 weeks. He is not on transplant list due to relatively recent alcohol intake. Last documented alcohol intake was in June 2017. No recent fever, chills, nausea, vomiting, fluctuating abdominal girth, melena , hematochezia, hematemesis. Complaints of poor sleep. Reports good appetite and is able to finish all his meals. The patient was seen in the ED this morning after not feeling well since yesterday afternoon and feeling weak. He was noted to have lower abdominal wall erythema he was found to have T-max of 102 and 26,000 WBC. He has 4-5 bowel movements per day, diarrhea. takes Lasix, Aldactone, rifaximin and lactulose. He was given a dose of vancomycin and Zosyn in the ED. He's currently on Rocephin. He did not have paracentesis on this admission. His meld is 27. - History Source History Provided By: Patient, Significant Other, Medical Record - Past Medical History Cardio/Vascular: Yes: HTN Gastrointestinal: Yes: Ascites Hepatobiliary: Yes: Cirrhosis (Alcohol induced, decompensated), Other (History of severe alcoholic hepatitis, hepatic encephalopathy) Psych: Yes: Depression Musculoskeletal: Yes: Other (Cellulitis and tenosynovitis +/- osteomyelitis 3rd/ 4th digit of left hand) Dermatology: Yes: Cellulitis (of LE and of hand), Psoriasis - Alcohol/Substance Use Hx Alcohol Use: Yes (vodka 1 pint daily) History of Substance Use: reports: None - Smoking History Smoking history: Never smoked Have you smoked in the past 12 months: No - Social History Usual Living Arrangement: With Significant Other (two teenage daughters) ADL: Independent Occupation: disabled History of Recent Travel: No Home Medications - Allergies Allergies/Adverse Reactions: Allergies Allergy/AdvReac Type Severity Reaction Status Date / Time No Known Allergies Allergy Verified 11/03/17 09:42 - Home Medications Home Medications: Ambulatory Orders Folic Acid - 1 mg PO DAILY #30 tablet 06/23/17 Betamethasone Dipropionate [Diprosone 0.05% Ointment -] 1 applic TP BID #1 tube 07/28/17 Cyanocobalamin [Vitamin B12 -] 100 mcg PO DAILY #30 tablet 07/28/17 Furosemide [Lasix -] 40 mg PO DAILY #30 tablet 07/28/17 Ketoconazole 2% Shampoo [Nizoral 2% Shampoo -] 1 applic TP Q72H #1 bottle Magnesium Oxide [Mag-Ox -] 400 mg PO BID #60 tablet 07/28/17 Pantoprazole Sodium [Protonix -] 40 mg PO DAILY #30 tablet.ec 07/28/17 Spironolactone [Aldactone -] 50 mg PO BID #60 tablet 07/28/17 Thiamine HCl [Vitamin B1] 100 mg PO DAILY #30 tablet 07/28/17 Gabapentin 300 mg PO QID #120 capsule MDD 4 08/12/17 Midodrine HCl [Proamatine -] 5 mg PO TID-MID #30 tablet MDD 3 08/12/17 Rifaximin [Xifaxan -] 550 mg PO BID #60 tablet MDD 2 08/12/17 Sertraline HCl [Zoloft -] 25 mg PO DAILY #30 tablet MDD 1 08/12/17 Lactulose (Oral Use) [Cephulac -] 35 gm PO QID 11/03/17 oxyCODONE HCL [Roxicodone -] 5 mg PO TID PRN MDD 3 11/03/17 Family Disease History - Family Disease History Family History: Unremarkable (Noncontributory) Family Disease History: Other: Grandparent Review of Systems Findings/Remarks: Chronic fatigue, jaundice and icterus with 4-5 loose bowel movements per day due to lactulose. Poor sleep. No fever, chills, melena, hematochezia, or hematemesis. No fluctuating abdominal girth. Good appetite. Able to finish all his meals. worsening symmetrical lower extremity edema Physical Exam-GI Vital Signs: Vital Signs Temperature 102 F H 11/03/17 10:55 Pulse Rate 102 H 11/03/17 12:11 Respiratory Rate 20 11/03/17 12:11 Blood Pressure 117/51 11/03/17 12:11 O2 Sat by Pulse Oximetry (%) 95 11/03/17 12:11 Constitutional: Yes: No Distress, Calm, Cachectic, Thin Eyes: Yes: Sclera Icterus Cardiovascular: Yes: Regular Rate and Rhythm Respiratory: Yes: Regular Gastrointestinal Inspection: No: Distention ...Palpate: Yes: Soft. No: Tenderness, Tenderness, Rebound Musculoskeletal: Yes: Joint Swelling ( ankles, bilateral) Edema: Yes Edema: LLE: 2+, RLE: 2+ Integumentary: Yes: Erythema ( lower abdominal wall from right lower quadrant to left lower quadrant down anterior and anterior medial thighs) Neurological: Yes: Alert, Oriented, Asterixis, Tremors Labs: CBC, BMP 11/03/17 10:10 11/03/17 10:10 INR, PTT INR 2.22 (0.82-1.09) H 11/03/17 10:10 Laboratory Tests 11/03/17 11/03/17 11/03/17 10:00 10:10 10:10 WBC 26.9 H D RBC 2.58 L D Hgb 8.2 L D Hct 24.4 L D MCV 94.5 MCH 31.8 MCHC 33.6 RDW 15.0 Plt Count 88 L MPV 7.3 L Neutrophils % No Result Required. Neutrophils % (Manual) 85.6 H Band Neutrophils % 5.1 Lymphocytes % No Result Required. Lymphocytes % (Manual) 5.1 L Monocytes % (Manual) 2 L Eosinophils % (Manual) 0.0 Basophils % (Manual) 0.0 Myelocytes % (Man) 2 Promyelocytes % (Man) 0 Blast Cells % (Manual) 0 Nucleated RBC % 0 Metamyelocytes 0 Hypochromia 0 Platelet Estimate Decreased Polychromasia 0 Poikilocytosis 0 Anisocytosis 1+ Microcytosis 1+ Macrocytosis 1+ PT with INR 25.10 H INR 2.22 H Sodium Potassium Chloride Carbon Dioxide Anion Gap BUN Creatinine Creat Clearance w eGFR Random Glucose Calcium Total Bilirubin AST ALT Alkaline Phosphatase Ammonia Total Protein Albumin Urine Color Urine Appearance Urine pH Ur Specific [place] Urine Protein Urine Glucose (UA) Urine Ketones Urine Blood Urine Nitrite Urine Bilirubin Urine Urobilinogen Ur Leukocyte Esterase Urine WBC (Auto) Urine RBC (Auto) Ur Epithelial Cells Hyaline Casts Urine Mucus Blood Type O POSITIVE Antibody Screen Negative 11/03/17 11/03/17 11/03/17 10:10 10:10 13:40 WBC RBC Hgb Hct MCV MCH MCHC RDW Plt Count MPV Neutrophils % Neutrophils % (Manual) Band Neutrophils % Lymphocytes % Lymphocytes % (Manual) Monocytes % (Manual) Eosinophils % (Manual) Basophils % (Manual) Myelocytes % (Man) Promyelocytes % (Man) Blast Cells % (Manual) Nucleated RBC % Metamyelocytes Hypochromia Platelet Estimate Polychromasia Poikilocytosis Anisocytosis Microcytosis Macrocytosis PT with INR INR Sodium 126 L Potassium 4.6 Chloride 95 L Carbon Dioxide 28 Anion Gap 3 L BUN 16 D Creatinine 1.8 H D Creat Clearance w eGFR 39.52 Random Glucose 133 H Calcium 8.8 Total Bilirubin 5.6 H D AST 74 H D ALT 29 D Alkaline Phosphatase 156 H D Ammonia 14.51 Total Protein 8.2 Albumin 2.5 L Urine Color Dk yellow Urine Appearance Slcloudy Urine pH 5.0 Ur Specific [place] 1.015 Urine Protein Negative Urine Glucose (UA) Negative Urine Ketones Negative Urine Blood 3+ H Urine Nitrite Negative Urine Bilirubin Negative Urine Urobilinogen 2.0 Ur Leukocyte Esterase Negative Urine WBC (Auto) 6 Urine RBC (Auto) 14 Ur Epithelial Cells Rare Hyaline Casts 1 Urine Mucus Rare Blood Type Antibody Screen Imaging - Results Ultrasound: Pending Problem List - Problems (1) SBP (spontaneous bacterial peritonitis) Code(s): K65.2 - SPONTANEOUS BACTERIAL PERITONITIS (2) Hepatorenal syndrome Code(s): K76.7 - HEPATORENAL SYNDROME (3) Cellulitis Code(s): L03.90 - CELLULITIS, UNSPECIFIED Qualifiers: Site of cellulitis: other site Qualified Code(s): L03.818 - Cellulitis of other sites (4) Acute kidney injury Code(s): N17.9 - ACUTE KIDNEY FAILURE, UNSPECIFIED (5) Liver cirrhosis Code(s): K74.60 - UNSPECIFIED CIRRHOSIS OF LIVER Qualifiers: Hepatic cirrhosis type: alcoholic cirrhosis Ascites presence: with ascites Qualified Code(s): K70.31 - Alcoholic cirrhosis of liver with ascites Assessment/Plan 52-year-old male with meld score of 27, high-grade fever, leukocytosis, abdominal wall and lower extremities cellulitis, SBP and hepatorenal syndrome ICU monitoring ID and renal consults Continue Rocephin, A dose of vanco was given albumin 1.5g/kgx1, if Cr worsens, will add octreotide and midordine, daily albumin sanchez-culture, stool for C. difficile toxin ? Diagnostic paracentesis - already receiving abx CBC, CMP, direct bili, pt, INR daily. If MELD climbing up, will transfer to [facility] liver cervices. Discussed with patient and his .
--- NOTE | 2017-11-03 13:15 | EKG ---
Test Reason : Blood Pressure : / mmHG Vent. Rate : 099 BPM Atrial Rate : 099 BPM P-R Int : 150 ms QRS Dur : 086 ms QT Int : 378 ms P-R-T Axes : 030 007 024 degrees QTc Int : 485 ms NORMAL SINUS RHYTHM CANNOT RULE OUT INFERIOR INFARCT (CITED ON OR BEFORE 04-AUG-2017) ABNORMAL ECG WHEN COMPARED WITH ECG OF 08-AUG-2017 12:04, NO SIGNIFICANT CHANGE WAS FOUND Confirmed by SYDNEE MCKNIGHT MD ([id number]) on 11/03/2017 1:15:01 PM Referred By: Confirmed By:SYDNEE MCKNIGHT MD
[2017-11-03 13:50] LABS: URINE APPEARANCE SLCLOUDY; URINE BILIRUBIN NEGATIVE (<2.0 mg/dL); URINE BLOOD 3+ (NEGATIVE); URINE GLUCOSE (UA) NEGATIVE (NEGATIVE); URINE KETONE NEGATIVE (NEGATIVE); URINE LEUK ESTERASE NEGATIVE (NEGATIVE); URINE NITRITE NEGATIVE (NEGATIVE); URINE PROTEIN NEGATIVE (NEGATIVE)
[2017-11-03 13:52] LABS: URINE COLOR DK YELLOW
[2017-11-03 13:53] LABS: EPI CELLS RARE /HPF (FEW); URINE HYALINE CAST 1 /lpf; URINE MUCUS RARE
[2017-11-03] MEDS ORDERED: ALBUMIN HUMAN 25% 12.5 GM/50 ML VIAL IVPB ONE (14:30)
--- NOTE | 2017-11-03 14:33 | PN ---
Progress Note (short form) - Note Progress Note: ID consult dictated imp/reccd 52year old man with liver cirrhosis/end stage liver disease admitted with vomiting, twitching, chills and falls everything started yesterday after he got home from his GI appt no travel no recent antibiotics no scratches no seafood in ED febrile to 102 wbc 26k, cr 1.8 extensive cellulitis on the abdomen extending to the back (both flanks) and upper thighs, perineum not involved received vanco/zosyn in ED has had cellulitis twice in the past thinks he may have picked at a patch of psoriasis on his umbilicus no chest pain, no abd pain, no dysuria, diarrhea unchanged (lactulose) alert sepsis secondary to cellulitis most likely staph or strep but given extensive nature of cellulitis will continue empiric gram negative coverage vanco by levels (ckd) clindamycin/cefepime liver cirrhosis PATRICIA overall prognosis is guarded Problem List - Problems (1) Sepsis Code(s): A41.9 - SEPSIS, UNSPECIFIED ORGANISM (2) Cellulitis Code(s): L03.90 - CELLULITIS, UNSPECIFIED Qualifiers: Site of cellulitis: other site Qualified Code(s): L03.818 - Cellulitis of other sites (3) Liver cirrhosis Code(s): K74.60 - UNSPECIFIED CIRRHOSIS OF LIVER Qualifiers: Hepatic cirrhosis type: alcoholic cirrhosis Ascites presence: with ascites Qualified Code(s): K70.31 - Alcoholic cirrhosis of liver with ascites (4) Acute kidney injury Code(s): N17.9 - ACUTE KIDNEY FAILURE, UNSPECIFIED
[2017-11-03] MEDS: CLINDAMYCIN 600MG PREMIX IVPB 600 MG/50 ML BAG IVPB SCH ×2 (15:00→17:43)
[2017-11-03] MEDS ORDERED: CLINDAMYCIN 600MG PREMIX IVPB 600 MG/50 ML BAG IVPB SCH (15:00)
[2017-11-03 15:58] VITALS: BMI 25.4
--- NOTE | 2017-11-03 16:30 | CONS ---
DATE OF CONSULTATION: DATE OF DICTATION: This is a 52-year-old man. 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 He has a history of psoriasis. He was just seen yesterday at the GI doctor's office. After returning home, he started feeling unwell. He had chills. His reports he started twitching. She gave him fluids to drink which he vomited. He overall felt unwell. He was brought to the emergency room with those complaints this morning. He had a rectal temp of 102, a white count of 26,000 to have an extensive cellulitis on his abdomen extending to his legs. He had cultures drawn, was given stat doses of vancomycin and Zosyn, and I am asked to see him. He is currently awake. He notes that the rash feels hot and uncomfortable. He otherwise has no cough. He has no shortness of breath. His vomiting has stopped. He does not have any abdominal pain or chest pain. PAST MEDICAL HISTORY: Notable for hypertension, ascites, liver cirrhosis, alcoholic hepatitis and encephalopathy. He has a history of multiple episodes of cellulitis, including tenosynovitis, osteomyelitis of the 3rd and 4th digits of his left hand. He has had cellulitis of his legs in the past. He has a history of psoriasis, as well. He has a history of alcohol use, but has not recently been drinking. ALLERGIES: He has no known drug allergies. MEDICATIONS: As an outpatient include folic acid, betamethasone cream, vitamin B12, Lasix, magnesium oxide, Protonix, Aldactone, thiamine, gabapentin, midodrine, Rifaximin, sertraline, lactulose, and oxycodone. REVIEW OF SYSTEMS: Family denies any recent antibiotic use. He has not had any alcohol use recently. He has not had any scratches by any pets. He thinks he had a psoriatic plaque on his bellybutton that he removed and suspects that may be how he got this infection. He has not ingested any seafood. There is no history of any travel. SOCIAL HISTORY: He is . He lives with his . He is on disability. There is no history of any recent travel. FAMILY HISTORY: Unremarkable. PHYSICAL EXAMINATION: Vital signs: His temperature is 102, pulse is 101, blood pressure is 114/54, respiratory rate is 20. He is saturating 95% on room air. HEENT: He is normocephalic. His eyes are icteric. Neck: Supple. Lungs: Clear to auscultation. Heart: Regular rate and rhythm. Abdomen: Firm. It is nontender. Extremities: Have trace edema. Skin: Exam is notable for he has erythema surrounding his umbilicus. It is diffuse. It extends to both of his flanks, as well as his upper thighs. He has no scrotal or perineal involvement. It extends around the inner thigh on both sides, as well. He has no erythema of his feet. He has no erythema of his hands or face. His upper chest and his back are without rash, except at the sides of the flanks. His labs are notable for a white count of 26,000, hemoglobin is 8.2, platelets are 88,000. His BUN and creatinine are 16 and 1.8. Total bilirubin is 5.6. His AST is 74, ALT of 154. His ammonia is 14. Urinalysis is notable for 3+ blood, he has 6 white cells. Most recent HIV test in August was negative. Blood cultures have been sent. 1. In summary, this is a 52-year-old man with liver cirrhosis, end-stage liver disease, admitted with sepsis secondary to cellulitis, most likely staph or strep, but given the extensive nature of the cellulitis, would continue empiric gram-negative coverage. Would dose vancomycin by levels. We have ordered a round of for tomorrow morning. Would treat him with clindamycin and cefepime to cover gram negatives as well as staph and strep. Blood cultures are pending. He is to be seen by Renal for his CKD. 2. Liver cirrhosis. He is being followed by GI, as well. Abdominal sonogram is pending. 3. Acute kidney injury. He is to be seen by Renal. Case was discussed with his at bedside, as well as with GI. Overall prognosis is guarded. RAMIRO PEREZ M.D. [id number]
[2017-11-03] MEDS ORDERED: KETOCONAZOLE 2 % SHAMPOO 120 ML BOTTLE TP SCH (17:15)
[2017-11-03] MEDS ORDERED: PT OWN MED DRAWER 7, Y5N ONE (17:34)
--- NOTE | 2017-11-03 17:59 | CONSULT ---
Consult - text type - Consultation Consultation Note: Renal Consult for PATRICIA This is a 52 year old gentleman wit alcoholic liver cirrhosis, CKD, hepatic encephalopathy presented from home with a fall and involuntary movement of his extremities and found to have cellulitis of the abd and LE with PATRICIA. Pt was on Aldactone and Lasix at home. Denies any NSAID use. Reports normal urination. No flank pain. No N/V/D. No fever, chills. No abd distension or pain. PMhx: as above Allergies: NKDA Family hx: NC social Hx: Former ETOH abuser ROS: as per HPI Home Medications Medication Instructions Recorded Folic Acid - 1 mg PO DAILY #30 tablet 06/23/17 Betamethasone Dipropionate 1 applic TP BID #1 tube 07/28/17 [Diprosone 0.05% Ointment -] Cyanocobalamin [Vitamin B12 -] 100 mcg PO DAILY #30 tablet 07/28/17 Furosemide [Lasix -] 40 mg PO DAILY #30 tablet 07/28/17 Ketoconazole 2% Shampoo [Nizoral 1 applic TP Q72H #1 bottle 07/28/17 2% Shampoo -] Magnesium Oxide [Mag-Ox -] 400 mg PO BID #60 tablet 07/28/17 Pantoprazole Sodium [Protonix -] 40 mg PO DAILY #30 tablet.ec 07/28/17 Spironolactone [Aldactone -] 50 mg PO BID #60 tablet 07/28/17 Thiamine HCl [Vitamin B1] 100 mg PO DAILY #30 tablet 07/28/17 Gabapentin 300 mg PO QID #120 capsule MDD 4 08/12/17 Midodrine HCl [Proamatine -] 5 mg PO TID-MID #30 tablet MDD 3 08/12/17 Rifaximin [Xifaxan -] 550 mg PO BID #60 tablet MDD 2 08/12/17 Sertraline HCl [Zoloft -] 25 mg PO DAILY #30 tablet MDD 1 08/12/17 Lactulose (Oral Use) [Cephulac -] 35 gm PO QID 11/03/17 oxyCODONE HCL [Roxicodone -] 5 mg PO TID PRN MDD 3 11/03/17 Vital Signs Temperature 99.3 F 11/03/17 15:00 Pulse Rate 85 11/03/17 15:00 Respiratory Rate 18 11/03/17 15:00 Blood Pressure 94/50 11/03/17 15:00 O2 Sat by Pulse Oximetry (%) 96 11/03/17 15:00 Intake & Output 10/31/17 11/01/17 11/02/17 11/03/17 23:59 23:59 23:59 23:59 Weight 75.75 kg NAD awake and alert RRR, No M/R CTA Obese, mild ascities, not tense + erythema on abd Trace LE edema no bladder distension no cyanoiss or clubbing CBC, BMP 11/03/17 10:10 11/03/17 10:10 Current Medications Betamethasone Dipropionate (Diprosone 0.05% Ointment -) 1 applic TP BID VANITA Cyanocobalamin (Vitamin B12 -) 100 mcg PO DAILY VANITA Folic Acid (Folic Acid -) 1 mg PO DAILY VANITA Furosemide (Lasix -) 40 mg PO DAILY VANITA Gabapentin (Neurontin -) 300 mg PO QID [facility] Sodium Chloride (Normal Saline -) 1,000 mls @ 50 mls/hr IV ASDIR VANITA Stop: 11/04/17 10:53 Last Admin: 11/03/17 11:00 Dose: 50 mls/hr Cefepime HCl (Maxipime 2gm Ivpb (Premix)) 2 gm in 50 mls @ 100 mls/hr IVPB BID VANITA Clindamycin Phosphate (Cleocin 600 Mg Premix Ivpb -) 600 mg in 50 mls @ 100 mls /hr IVPB Q8H-IV VANITA Ketoconazole (Nizoral 2% Shampoo -) 1 applic TP Q72H [facility] Lactulose (Cephulac (Oral Use)) 45 gm PO QID [facility] Magnesium Oxide (Mag-Ox -) 400 mg PO BID [facility] Midodrine (Proamatine -) 5 mg PO TID-MID [facility] Oxycodone HCl (Roxicodone -) 5 mg PO Q8H PRN PRN Reason: PAIN LEVEL 6-10 Pantoprazole Sodium (Protonix -) 40 mg PO DAILY [facility] Rifaximin (Xifaxan -) 550 mg PO BID [facility] Sertraline HCl (Zoloft -) 25 mg PO DAILY [facility] Spironolactone (Aldactone -) 50 mg PO BID [facility] Thiamine HCl (Vitamin B1 -) 100 mg PO DAILY VANITA 52 year old gentleman wit alcoholic liver cirrhosis, CKD, hepatic encephalopathy presented from home with a fall and involuntary movement of his extremities and found to have cellulitis of the abd and LE with PATRICIA. #PATRICIA #Cellulitis of Abd/Legs #Hepatic Encephalopathy #Alcoholic Cirrhosis #Hypervolemic Hyponatremia #Anemia Suspect etiology of PATRICIA is intravasular volume depletion in setting of acute infection and diuretics but cannot r/o HRS would recommend 24 hrs of IVF hydration off diuretics Check Urine studies for FeNa Abx as per ID continue Lactulose and Rifaximin as per GI albumin as per GI hold diuretics for 24 hours no indication for [employer] Check iron studies no acute indication for transfusion prognosis is guarded
[2017-11-03] MEDS ORDERED: LACTULOSE 20 GM/30 ML UDC (FOR ORAL USE ONLY) PO SCH (18:00)
[2017-11-03] MEDS: MIDODRINE HCL 5 MG TABLET PO SCH (18:00)
[2017-11-03] MEDS: GABAPENTIN 300 MG CAPSULE (FP) PO SCH ×2 (18:01→22:07)
[2017-11-03] MEDS: oxyCODONE HCL 5 MG TABLET PO PRN (18:03)
[2017-11-03] MEDS ORDERED: INSULIN (NOVOLOG) ASPART 100 UNITS/ML 10ML VIAL ONE (18:21)
--- NOTE | 2017-11-03 21:45 | HP ---
Admitting History and Physical - Primary Care Physician PCP: Prakash Ashley - Admission Chief Complaint: Fall History of Present Illness: The patient is a 52 year old male with a significant past medical history of alcohol cirrhosis/ascites, liver failure, encephalopathy, varices, psoriasis, anemia, hypertension, and depression who presents to the emergency department with increased twitching, chills, nausea, vomiting, and weakness since yesterday. Patient reports visiting GI, Dr. Craig yesterday morning, and states he began to feel unwell s/p visit. Patient reports developing nausea and vomiting(nonbloody/nonbilious), but denies any abdominal pain, diarrhea, or constipation. As per , patient began to feel weak, and subsequently fell. Patient reports breaking the fall with his hands and knees. He denies any head trauma, LOC, changes in vision, neck or back pain. As per , the patient appears more jaundiced than usual and has increased swelling in his legs. reports patient was noted to have an outpatient ammonia level of 144 several weeks ago, and states there was no change in his Lactulose dose. Patient reports increased erythema to the lower abdomen, which has been spreading to his lower extremities. Patient notes a subjective fever, chills, but denies any cough, headache, or dizziness. He denies any chest pain, shortness of breath, diaphoresis, or palpitations. He denies any dysuria, hematuria, frequency, or urgency. He denies any recent travel or sick contacts. Allergies: NKDA Past surgical history: None reported. Social history: Recovering alcoholic. No reported cigarette or drug use. PCP: Dr. Ashley GI: Dr. Craig Human Resources Temp: Dr. Gonzalez Transplant Doc: Dr. Flynn History Source: Patient, Significant Other () Limitations to Obtaining History: Clinical Condition - Past Medical History Cardiovascular: Yes: HTN Gastrointestinal: Yes: Ascites Hepatobiliary: Yes: Cirrhosis (Alcohol induced, decompensated), Other (History of severe alcoholic hepatitis, hepatic encephalopathy) Psych: Yes: Depression Musculoskeletal: Yes: Other (Cellulitis and tenosynovitis +/- osteomyelitis 3rd/ 4th digit of left hand) Dermatology: Yes: Cellulitis (of LE and of hand), Psoriasis - Smoking History Smoking history: Never smoked Have you smoked in the past 12 months: No - Alcohol/Substance Use Hx Alcohol Use: Yes (vodka 1 pint daily) History of Substance Use: reports: None - Social History ADL: Independent Occupation: disabled History of Recent Travel: No Home Medications - Allergies Allergies/Adverse Reactions: Allergies Allergy/AdvReac Type Severity Reaction Status Date / Time No Known Allergies Allergy Verified 11/03/17 09:42 - Home Medications Home Medications: Ambulatory Orders Folic Acid - 1 mg PO DAILY #30 tablet 06/23/17 Betamethasone Dipropionate [Diprosone 0.05% Ointment -] 1 applic TP BID #1 tube 07/28/17 Cyanocobalamin [Vitamin B12 -] 100 mcg PO DAILY #30 tablet 07/28/17 Furosemide [Lasix -] 40 mg PO DAILY #30 tablet 07/28/17 Ketoconazole 2% Shampoo [Nizoral 2% Shampoo -] 1 applic TP Q72H #1 bottle Magnesium Oxide [Mag-Ox -] 400 mg PO BID #60 tablet 07/28/17 Pantoprazole Sodium [Protonix -] 40 mg PO DAILY #30 tablet.ec 07/28/17 Spironolactone [Aldactone -] 50 mg PO BID #60 tablet 07/28/17 Thiamine HCl [Vitamin B1] 100 mg PO DAILY #30 tablet 07/28/17 Gabapentin 300 mg PO QID #120 capsule MDD 4 08/12/17 Midodrine HCl [Proamatine -] 5 mg PO TID-MID #30 tablet MDD 3 08/12/17 Rifaximin [Xifaxan -] 550 mg PO BID #60 tablet MDD 2 08/12/17 Sertraline HCl [Zoloft -] 25 mg PO DAILY #30 tablet MDD 1 08/12/17 Lactulose (Oral Use) [Cephulac -] 35 gm PO QID 11/03/17 oxyCODONE HCL [Roxicodone -] 5 mg PO TID PRN MDD 3 11/03/17 Family Disease History - Family Disease History Family Disease History: Other: Grandparent Review of Systems - Review of Systems Constitutional: reports: Chills, Loss of Appetite, Malaise, Unintentional Wgt. Loss, Weakness HENT: reports: No Symptoms Neck: reports: No Symptoms Cardiovascular: reports: No Symptoms Respiratory: reports: No Symptoms Gastrointestinal: reports: No Symptoms Genitourinary: reports: No Symptoms Breasts: reports: No Symptoms Reported Musculoskeletal: reports: Back Pain, Muscle Weakness Integumentary: reports: Erythema (abdominal and upper thighs) Neurological: reports: Confusion, Weakness Endocrine: reports: No Symptoms Hematology/Lymphatic: reports: No Symptoms Psychiatric: reports: Anxiety, Depression Physical Examination Vital Signs: Vital Signs Temperature 98.5 F 11/03/17 18:00 Pulse Rate 89 11/03/17 18:00 Respiratory Rate 19 11/03/17 18:00 Blood Pressure 93/59 11/03/17 18:00 O2 Sat by Pulse Oximetry (%) 96 11/03/17 15:00 Constitutional: Yes: Well Nourished, No Distress, Calm Cardiovascular: Yes: Regular Rate and Rhythm Respiratory: Yes: Regular Gastrointestinal: Yes: Normal Bowel Sounds, Soft, Abdomen, Obese Musculoskeletal: Yes: Muscle Weakness Edema: Yes Edema: LLE: 1+, RLE: 1+ Peripheral Pulses WNL: Yes Integumentary: Yes: Erythema (Lower abdomen and upper thighs) Neurological: Yes: Alert Psychiatric: Yes: Alert Labs: CBC, BMP 11/03/17 10:10 11/03/17 10:10 Problem List - Problems (1) Cellulitis Assessment/Plan: ID consult -IV abx -IVF Code(s): L03.90 - CELLULITIS, UNSPECIFIED Qualifiers: Site of cellulitis: other site Qualified Code(s): L03.818 - Cellulitis of other sites (2) Hepatorenal syndrome Assessment/Plan: seen by GI and nephrology monitor labs Code(s): K76.7 - HEPATORENAL SYNDROME (3) Sepsis Assessment/Plan: -ID consult -BC/UC pending -IV abx -monitor labs Code(s): A41.9 - SEPSIS, UNSPECIFIED ORGANISM (4) Alcoholic cirrhosis Assessment/Plan: -monitor ammonia levels -adjust lactulose to have at least 4 BM's/day -follows up with Dr Michelle Barajas at [facility] transplant center-She is made aware of the admission. Code(s): K70.30 - ALCOHOLIC CIRRHOSIS OF LIVER WITHOUT ASCITES Qualifiers: Ascites presence: with ascites Qualified Code(s): K70.31 - Alcoholic cirrhosis of liver with ascites (5) Anemia Assessment/Plan: chronic monitor trend Code(s): D64.9 - ANEMIA, UNSPECIFIED Qualifiers: Anemia type: unspecified type Qualified Code(s): D64.9 - Anemia, unspecified (6) Leukocytosis Assessment/Plan: -ID consult -IV abx -monitor labs Code(s): D72.829 - ELEVATED WHITE BLOOD CELL COUNT, UNSPECIFIED Qualifiers: Leukocytosis type: unspecified Qualified Code(s): D72.829 - Elevated white blood cell count, unspecified (7) Hyponatremia Assessment/Plan: -IVF -renal consult -regular diet for now -monitor trend Code(s): E87.1 - HYPO-OSMOLALITY AND HYPONATREMIA Assessment/Plan see problem list
[2017-11-03] MEDS ORDERED: SPIRONOLACTONE 25 MG TABLET (FP) PO SCH (22:00)
[2017-11-03] MEDS ORDERED: CEFEPIME HCL/D5W 2 GM/50 ML BAG IVPB SCH (22:00)
[2017-11-03] MEDS: BETAMETHASONE DIPR 0.05% OINTMENT 15 GM TUBE TP SCH (22:05)
[2017-11-03] MEDS: MAGNESIUM OXIDE 400 MG TABLET (FP) PO SCH (22:06)
[2017-11-03] MEDS: RIFAXIMIN 550 MG TABLET (UD) PO SCH (22:07)
[2017-11-03] MEDS: LACTULOSE 20 GM/30 ML UDC (FOR ORAL USE ONLY) PO SCH (22:09)
[2017-11-04] MEDS: CLINDAMYCIN 600MG PREMIX IVPB 600 MG/50 ML BAG IVPB SCH (01:15)
[2017-11-04] MEDS: oxyCODONE HCL 5 MG TABLET PO PRN ×2 (02:27→11:01)
[2017-11-04] MEDS ORDERED: ONDANSETRON 4 MG/2 ML VIAL IVPUSH ONE (05:44)
[2017-11-04 07:50] LABS: BASO % 0.3 % (0-2.0); EOS % 3.2 % (0-4.5); HEMATOCRIT 16.5 % (35.4-49); LYMPH % 9.9 % (8-40); MCH 32.8 pg (25.7-33.7); MCHC 34.7 g/dl (32.0-35.9); MEAN CELL VOLUME 94.5 fl (80-96); MEAN PLT VOLUME 7.7 fl (7.5-11.1); NEUT % 79.6 % (42.8-82.8); PLATELET COUNT 55 K/MM3 (134-434); RBC 1.75 M/mm3 (4.00-5.60); RDW 14.6 % (11.9-15.9)
[2017-11-04 07:55] LABS: HEMOGLOBIN 5.7 GM/dL (11.7-16.9)
[2017-11-04] MEDS ORDERED: CEFEPIME 2 GM in DEXTROSE 5%-WATER - 100 ML IVPB SCH (07:55)
[2017-11-04 08:11] LABS: INR 2.88 (0.82-1.09); PROTHROMBIN TIME (PATIENT) 32.5 SEC (9.98-11.88)
[2017-11-04 08:26] LABS: CHLORIDE 93 mmol/L (98-107); POTASSIUM 4.5 mmol/L (3.5-5.1); SODIUM 130 mmol/L (136-145)
--- NOTE | 2017-11-04 08:31 | PN ---
Progress Note, Physician Chief Complaint: ID Remains stable Clindamycin Vanco dose and Cefepime initially Now positive blood cultures gram positive cocci clusters both sets Had 102 but his temp is down now 99 - Current Medication List Current Medications: Active Medications Betamethasone Dipropionate (Diprosone 0.05% Ointment -) 1 applic TP BID [facility] Last Admin: 11/03/17 22:05 Dose: 1 applic Cyanocobalamin (Vitamin B12 -) 100 mcg PO DAILY [facility] Folic Acid (Folic Acid -) 1 mg PO DAILY [facility] Furosemide (Lasix -) 40 mg PO DAILY [facility] Gabapentin (Neurontin -) 300 mg PO QID [facility] Last Admin: 11/03/17 22:07 Dose: 300 mg Clindamycin Phosphate (Cleocin 600 Mg Premix Ivpb -) 600 mg in 50 mls @ 100 mls /hr IVPB Q8H-IV [facility] Last Admin: 11/04/17 01:15 Dose: 100 mls/hr Sodium Chloride (Normal Saline -) 1,000 mls @ 83 mls/hr IV ASDIR [facility] Stop: 11/04/17 16:00 Last Admin: 11/03/17 18:00 Dose: 83 mls/hr Cefepime HCl 2 gm/ Dextrose 100 mls @ 100 mls/hr IVPB BID [facility] Ketoconazole (Nizoral 2% Shampoo -) 1 applic TP Q72H [facility] Last Admin: 11/03/17 17:15 Dose: Not Given Lactulose (Cephulac (Oral Use)) 30 gm PO QID [facility] Last Admin: 11/03/17 22:09 Dose: 30 gm Magnesium Oxide (Mag-Ox -) 400 mg PO BID [facility] Last Admin: 11/03/17 22:06 Dose: 400 mg Midodrine (Proamatine -) 5 mg PO TID-MID [facility] Last Admin: 11/03/17 18:00 Dose: Not Given Oxycodone HCl (Roxicodone -) 5 mg PO Q8H PRN PRN Reason: PAIN LEVEL 6-10 Last Admin: 11/04/17 02:27 Dose: 5 mg Pantoprazole Sodium (Protonix -) 40 mg PO DAILY [facility] Rifaximin (Xifaxan -) 550 mg PO BID [facility] Last Admin: 11/03/17 22:07 Dose: 550 mg Sertraline HCl (Zoloft -) 25 mg PO DAILY [facility] Spironolactone (Aldactone -) 50 mg PO BID VANITA Thiamine HCl (Vitamin B1 -) 100 mg PO DAILY VANITA - Objective Vital Signs: Vital Signs Temperature 99.3 F 11/04/17 06:19 Pulse Rate 82 11/04/17 06:19 Respiratory Rate 19 11/04/17 06:19 Blood Pressure 89/45 11/04/17 06:19 O2 Sat by Pulse Oximetry (%) 97 11/04/17 05:00 Constitutional: Yes: Well Nourished, No Distress Eyes: Yes: Other (left conjunctival petiechiae) Cardiovascular: Yes: Regular Rate and Rhythm, S1, S2 Respiratory: Yes: WNL, Regular, CTA Bilaterally Gastrointestinal: Yes: WNL, Normal Bowel Sounds, Soft, Other (Confluent erythema extending to thighs). No: Tenderness, Tenderness, Epigastrium Edema: Yes Labs: CBC, BMP 11/04/17 06:30 INR, PTT INR 2.88 (0.82-1.09) H 11/04/17 06:30 Assessment/Plan Microbiology 11/03/17 09:47 Blood - Peripheral Venous Blood Culture - Preliminary Pending Organism 11/03/17 09:47 Blood - Peripheral Venous Blood Culture - Preliminary Pending Organism Laboratory Tests 11/03/17 11/03/17 11/03/17 10:10 10:10 13:40 WBC 26.9 H D Hgb Hct Plt Count INR Creat Clearance w eGFR 39.52 Total Bilirubin 5.6 H D AST 74 H D ALT 29 D Alkaline Phosphatase 156 H D Urine WBC (Auto) 6 Urine RBC (Auto) 14 Random Vancomycin 11/04/17 11/04/17 11/04/17 06:30 06:30 06:30 WBC 11.0 H D Hgb 5.7 L* D Hct 16.5 L D Plt Count 55 L D INR 2.88 H Creat Clearance w eGFR Total Bilirubin AST ALT Alkaline Phosphatase Urine WBC (Auto) Urine RBC (Auto) Random Vancomycin Pending Assessment Staphylococcal bacteremia with cellulitis of the abd wall thigh. Liver cirrhosis and CKD Left conjunctival petechiae note ? embolic Plan Repeat the blood cultures Await the Vancomy level and redose accordingly CRP ECHO Stop Cefepime and CLindamycin Vishal fall
[2017-11-04 08:51] LABS: ALBUMIN 2.6 g/dl (3.4-5.0); ALK PHOS 110 U/L (45-117); ANION GAP 12 (8-16); BILIRUBIN,TOTAL 3.9 mg/dL (0.2-1.0); BLOOD UREA NITROGEN 23 mg/dL (7-18); CALCIUM 8.1 mg/dL (8.5-10.1); CO2 25 mmol/L (21-32); CREATININE 2.3 mg/dL (0.7-1.3); GLUCOSE,RANDOM 150 mg/dL (74-106); MAGNESIUM 2.1 mg/dL (1.8-2.4); PHOSPHOROUS 1.9 mg/dL (2.5-4.9); SGOT/AST 50 U/L (15-37); SGPT/ALT 21 U/L (12-78); TOT PROT 6.9 g/dl (6.4-8.2)
[2017-11-04] MEDS ORDERED: PT OWN MED DRAWER 7, Y5N ONE ×2 (09:21→18:09)
[2017-11-04] MEDS: MIDODRINE HCL 5 MG TABLET PO SCH ×3 (09:29→18:12)
[2017-11-04] MEDS: MAGNESIUM OXIDE 400 MG TABLET (FP) PO SCH (09:29)
[2017-11-04] MEDS: RIFAXIMIN 550 MG TABLET (UD) PO SCH (09:29)
[2017-11-04] MEDS: GABAPENTIN 300 MG CAPSULE (FP) PO SCH ×3 (09:29→18:12)
[2017-11-04] MEDS: BETAMETHASONE DIPR 0.05% OINTMENT 15 GM TUBE TP SCH (09:30)
[2017-11-04] MEDS: LACTULOSE 20 GM/30 ML UDC (FOR ORAL USE ONLY) PO SCH ×3 (09:30→18:14)
[2017-11-04 09:47] LABS: HEMATOCRIT 17.2 % (35.4-49); MCH 32.4 pg (25.7-33.7); MCHC 34.5 g/dl (32.0-35.9); MEAN CELL VOLUME 94.1 fl (80-96); MEAN PLT VOLUME 7.9 fl (7.5-11.1); PLATELET COUNT 55 K/MM3 (134-434); RBC 1.83 M/mm3 (4.00-5.60); RDW 14.9 % (11.9-15.9); WHITE BLOOD COUNT 10.4 K/mm3 (4.0-10.0)
[2017-11-04 09:51] LABS: HEMOGLOBIN 5.9 GM/dL (11.7-16.9)
[2017-11-04] MEDS ORDERED: THIAMINE HCL 100 MG TABLET (FP) PO SCH (10:00)
[2017-11-04] MEDS ORDERED: PANTOPRAZOLE 40 MG TABLET (FP) PO SCH (10:00)
[2017-11-04] MEDS ORDERED: FOLIC ACID 1 MG TABLET (FP) PO SCH (10:00)
[2017-11-04] MEDS ORDERED: CYANOCOBALAMIN (VITAMIN B-12) 100 MCG TABLET PO SCH (10:00)
[2017-11-04] MEDS ORDERED: FUROSEMIDE 40 MG TABLET (FP) PO SCH (10:00)
[2017-11-04] MEDS ORDERED: SERTRALINE HCL 25 MG TABLET (FP) PO SCH (10:00)
--- NOTE | 2017-11-04 10:41 | DS ---
Physical Examination Vital Signs: Vital Signs Temperature 99.3 F 11/04/17 06:19 Pulse Rate 82 11/04/17 06:19 Respiratory Rate 19 11/04/17 06:19 Blood Pressure 89/45 11/04/17 06:19 O2 Sat by Pulse Oximetry (%) 97 11/04/17 05:00 Findings/Remarks: in bed, deyanira agrees to transfer to [facility] to liver failure team Constitutional: Yes: Moderate Distress Eyes: Yes: Sclera Icterus HENT: Yes: WNL Neck: Yes: WNL Cardiovascular: Yes: WNL Respiratory: Yes: WNL Gastrointestinal: Yes: Soft, Ascites, Distention Renal/: Yes: WNL Musculoskeletal: Yes: Muscle Weakness Extremities: Yes: Erythema Edema: Yes Edema: LLE: 2+, RLE: 2+ Peripheral Pulses WNL: Yes Integumentary: Yes: Erythema Wound/Incision: Yes: Dressing Dry and Intact Neurological: Yes: Asterixis, Pre-Existing Deficit, Unsteady Gait ...Motor Strength: LLE, RLE Psychiatric: Yes: WNL Labs: CBC, BMP 11/04/17 09:15 11/04/17 06:30 Discharge Summary Reason For Visit: CELLULITIS Current Active Problems Cellulitis (Acute) Hepatorenal syndrome (Acute) SBP (spontaneous bacterial peritonitis) (Acute) Sepsis (Acute) Procedures: Principal: labs/cultures Other Procedures: ct head Hospital Course: admitted transfusing prbc for anemia, will have gi workup transferred to [facility] with his Liver specialist for tertiary care Condition: Fair - Instructions Diet, Activity, Other Instructions: reg diet see dr english after discharge from [facility] Referrals: Prakash English MD [Primary Care Provider] - Disposition: TRANSFER ACUTE CARE/OTHER HOSP - Home Medications Comprehensive Discharge Medication List: Ambulatory Orders Folic Acid - 1 mg PO DAILY #30 tablet 06/23/17 Betamethasone Dipropionate [Diprosone 0.05% Ointment -] 1 applic TP BID #1 tube 07/28/17 Cyanocobalamin [Vitamin B12 -] 100 mcg PO DAILY #30 tablet 07/28/17 Furosemide [Lasix -] 40 mg PO DAILY #30 tablet 07/28/17 Ketoconazole 2% Shampoo [Nizoral 2% Shampoo -] 1 applic TP Q72H #1 bottle 12/27/ 17 Magnesium Oxide [Mag-Ox -] 400 mg PO BID #60 tablet 07/28/17 Pantoprazole Sodium [Protonix -] 40 mg PO DAILY #30 tablet.ec 07/28/17 Spironolactone [Aldactone -] 50 mg PO BID #60 tablet 07/28/17 Thiamine HCl [Vitamin B1] 100 mg PO DAILY #30 tablet 07/28/17 Gabapentin 300 mg PO QID #120 capsule MDD 4 08/12/17 Midodrine HCl [Proamatine -] 5 mg PO TID-MID #30 tablet MDD 3 08/12/17 Rifaximin [Xifaxan -] 550 mg PO BID #60 tablet MDD 2 08/12/17 Sertraline HCl [Zoloft -] 25 mg PO DAILY #30 tablet MDD 1 08/12/17 Lactulose (Oral Use) [Cephulac -] 35 gm PO QID 11/03/17 oxyCODONE HCL [Roxicodone -] 5 mg PO TID PRN MDD 3 11/03/17
--- NOTE | 2017-11-04 10:59 | PN ---
Progress Note, Physician History of Present Illness: MELD 31 (up from 27 yesterdaa). Hgb 5 g/dl. No signs of bleeding. Encephalopatic, but able to maintain conversation - Current Medication List Current Medications: Active Medications Betamethasone Dipropionate (Diprosone 0.05% Ointment -) 1 applic TP BID [facility] Last Admin: 11/04/17 09:30 Dose: 1 applic Cyanocobalamin (Vitamin B12 -) 100 mcg PO DAILY [facility] Last Admin: 11/04/17 09:29 Dose: 100 mcg Folic Acid (Folic Acid -) 1 mg PO DAILY [facility] Last Admin: 11/04/17 09:29 Dose: 1 mg Furosemide (Lasix -) 40 mg PO DAILY [facility] Last Admin: 11/04/17 09:30 Dose: 40 mg Gabapentin (Neurontin -) 300 mg PO QID [facility] Last Admin: 11/04/17 09:29 Dose: 300 mg Sodium Chloride (Normal Saline -) 1,000 mls @ 83 mls/hr IV ASDIR [facility] Stop: 11/04/17 16:00 Last Admin: 11/03/17 18:00 Dose: 83 mls/hr Ketoconazole (Nizoral 2% Shampoo -) 1 applic TP Q72H [facility] Last Admin: 11/03/17 17:15 Dose: Not Given Lactulose (Cephulac (Oral Use)) 30 gm PO QID [facility] Last Admin: 11/04/17 09:30 Dose: 30 gm Magnesium Oxide (Mag-Ox -) 400 mg PO BID [facility] Last Admin: 11/04/17 09:29 Dose: 400 mg Midodrine (Proamatine -) 5 mg PO TID-MID [facility] Last Admin: 11/04/17 09:29 Dose: 5 mg Oxycodone HCl (Roxicodone -) 5 mg PO Q8H PRN PRN Reason: PAIN LEVEL 6-10 Last Admin: 11/04/17 02:27 Dose: 5 mg Pantoprazole Sodium (Protonix -) 40 mg PO DAILY [facility] Last Admin: 11/04/17 09:29 Dose: 40 mg Rifaximin (Xifaxan -) 550 mg PO BID [facility] Last Admin: 11/04/17 09:29 Dose: 550 mg Sertraline HCl (Zoloft -) 25 mg PO DAILY [facility] Last Admin: 11/04/17 09:29 Dose: 25 mg Spironolactone (Aldactone -) 50 mg PO BID [facility] Thiamine HCl (Vitamin B1 -) 100 mg PO DAILY [facility] Last Admin: 11/04/17 09:30 Dose: 100 mg - Objective Vital Signs: Vital Signs Temperature 99.3 F 11/04/17 06:19 Pulse Rate 82 11/04/17 06:19 Respiratory Rate 19 11/04/17 06:19 Blood Pressure 89/45 11/04/17 06:19 O2 Sat by Pulse Oximetry (%) 97 11/04/17 05:00 Constitutional: Yes: Calm Eyes: Yes: Sclera Icterus Cardiovascular: Yes: Regular Rate and Rhythm Respiratory: Yes: Regular Gastrointestinal: Yes: Soft, Ascites. No: Distention, Melena, Rectal Bleeding, Tenderness, Vomiting Labs: CBC, BMP 11/04/17 09:15 11/04/17 06:30 INR, PTT INR 2.88 (0.82-1.09) H 11/04/17 06:30 Laboratory Last Values WBC 10.4 K/mm3 (4.0-10.0) H 11/04/17 09:15 RBC 1.83 M/mm3 (4.00-5.60) L 11/04/17 09:15 Hgb 5.9 GM/dL (11.7-16.9) L* 11/04/17 09:15 Hct 17.2 % (35.4-49) L 11/04/17 09:15 MCV 94.1 fl (80-96) 11/04/17 09:15 MCH 32.4 pg (25.7-33.7) 11/04/17 09:15 MCHC 34.5 g/dl (32.0-35.9) 11/04/17 09:15 RDW 14.9 % (11.9-15.9) 11/04/17 09:15 Plt Count 55 K/MM3 (134-434) L 11/04/17 09:15 MPV 7.9 fl (7.5-11.1) 11/04/17 09:15 Neutrophils % 79.6 % (42.8-82.8) D 11/04/17 06:30 Neutrophils % (Manual) 85.6 % (42.8-82.8) H 11/03/17 10:10 Band Neutrophils % 5.1 % 11/03/17 10:10 Lymphocytes % 9.9 % (8-40) D 11/04/17 06:30 Lymphocytes % (Manual) 5.1 % (8-40) L 11/03/17 10:10 Monocytes % 7.0 % (3.8-10.2) 11/04/17 06:30 Monocytes % (Manual) 2 % (3.8-10.2) L 11/03/17 10:10 Eosinophils % 3.2 % (0-4.5) 11/04/17 06:30 Eosinophils % (Manual) 0.0 % (0-4.5) 11/03/17 10:10 Basophils % 0.3 % (0-2.0) 11/04/17 06:30 Basophils % (Manual) 0.0 % (0-2.0) 11/03/17 10:10 Myelocytes % (Man) 2 % (0-2) 11/03/17 10:10 Promyelocytes % (Man) 0 % (0-2) 11/03/17 10:10 Blast Cells % (Manual) 0 % (0-0) 11/03/17 10:10 Nucleated RBC % 0 % (0-0) 11/03/17 10:10 Metamyelocytes 0 % (0-2) 11/03/17 10:10 Hypochromia 0 11/03/17 10:10 Platelet Estimate Decreased 11/03/17 10:10 Polychromasia 0 11/03/17 10:10 Poikilocytosis 0 11/03/17 10:10 Anisocytosis 1+ 11/03/17 10:10 Microcytosis 1+ 11/03/17 10:10 Macrocytosis 1+ 11/03/17 10:10 PT with INR 32.50 SEC (9.98-11.88) H 11/04/17 06:30 INR 2.88 (0.82-1.09) H 11/04/17 06:30 Sodium 130 mmol/L (136-145) L 11/04/17 06:30 Potassium 4.5 mmol/L (3.5-5.1) 11/04/17 06:30 Chloride 93 mmol/L (98-107) L 11/04/17 06:30 Carbon Dioxide 25 mmol/L (21-32) 11/04/17 06:30 Anion Gap 12 (8-16) 11/04/17 06:30 BUN 23 mg/dL (7-18) H D 11/04/17 06:30 Creatinine 2.3 mg/dL (0.7-1.3) H D 11/04/17 06:30 Creat Clearance w eGFR 29.78 (>60) 11/04/17 06:30 Random Glucose 150 mg/dL (74-106) H 11/04/17 06:30 Calcium 8.1 mg/dL (8.5-10.1) L 11/04/17 06:30 Phosphorus 1.9 mg/dL (2.5-4.9) L D 11/04/17 06:30 Magnesium 2.1 mg/dL (1.8-2.4) 11/04/17 06:30 Ferritin 1939.202 ng/ml (16.4-293.9) H 11/04/17 06:30 Total Bilirubin 3.9 mg/dL (0.2-1.0) H D 11/04/17 06:30 AST 50 U/L (15-37) H D 11/04/17 06:30 ALT 21 U/L (12-78) D 11/04/17 06:30 Alkaline Phosphatase 110 U/L (45-117) D 11/04/17 06:30 Ammonia 35.81 umol/L (11-32) H 11/04/17 06:30 Total Protein 6.9 g/dl (6.4-8.2) 11/04/17 06:30 Albumin 2.6 g/dl (3.4-5.0) L 11/04/17 06:30 Urine Color Dk yellow 11/03/17 13:40 Urine Appearance Slcloudy 11/03/17 13:40 Urine pH 5.0 (5.0-8.0) 11/03/17 13:40 Ur Specific [place] 1.015 (1.001-1.035) 11/03/17 13:40 Urine Protein Negative (NEGATIVE) 11/03/17 13:40 Urine Glucose (UA) Negative (NEGATIVE) 11/03/17 13:40 Urine Ketones Negative (NEGATIVE) 11/03/17 13:40 Urine Blood 3+ (NEGATIVE) H 11/03/17 13:40 Urine Nitrite Negative (NEGATIVE) 11/03/17 13:40 Urine Bilirubin Negative (<2.0 mg/dL) 11/03/17 13:40 Urine Urobilinogen 2.0 mg/dL (0.2-1.0) 11/03/17 13:40 Ur Leukocyte Esterase Negative (NEGATIVE) 11/03/17 13:40 Urine WBC (Auto) 6 /hpf (3-5) 11/03/17 13:40 Urine RBC (Auto) 14 /hpf (0-3) 11/03/17 13:40 Ur Epithelial Cells Rare /HPF (FEW) 11/03/17 13:40 Hyaline Casts 1 /lpf 11/03/17 13:40 Urine Mucus Rare 11/03/17 13:40 U Random Total Protein 18 mg/dl (5-11.9) H 11/04/17 05:33 Ur Random Urea Nitrogn 149 mg/dL 11/04/17 05:33 Urine Creatinine 101.0 mg/dL (20-370) 11/04/17 05:33 Random Vancomycin 4.579 ug/ml 11/04/17 06:30 Blood Type O POSITIVE 11/03/17 10:00 Antibody Screen Negative 11/03/17 10:00 Crossmatch See Detail 11/03/17 10:00 Problem List - Problems (1) SBP (spontaneous bacterial peritonitis) Code(s): K65.2 - SPONTANEOUS BACTERIAL PERITONITIS (2) Hepatorenal syndrome Code(s): K76.7 - HEPATORENAL SYNDROME (3) Cellulitis Code(s): L03.90 - CELLULITIS, UNSPECIFIED Qualifiers: Site of cellulitis: other site Qualified Code(s): L03.818 - Cellulitis of other sites (4) Acute kidney injury Code(s): N17.9 - ACUTE KIDNEY FAILURE, UNSPECIFIED (5) Liver cirrhosis Code(s): K74.60 - UNSPECIFIED CIRRHOSIS OF LIVER Qualifiers: Hepatic cirrhosis type: alcoholic cirrhosis Ascites presence: with ascites Qualified Code(s): K70.31 - Alcoholic cirrhosis of liver with ascites Assessment/Plan 52-year-old male with meld score of 31 (from27), high-grade fever, leukocytosis , abdominal wall and lower extremities cellulitis, SBP and hepatorenal syndrome See by ID/Renal albumin 25g, octreotide and midordine sanchez-culture, stool for C. difficile toxin ? Diagnostic paracentesis - already receiving abx Transfer to [facility] liver cervices. Called and discussed with Dr. Barajas's [employer] INSPECTOR @ [phone]. Awaiting call cabb Discussed with patient and his ..
[2017-11-04] MEDS ORDERED: ALBUMIN HUMAN 25% 12.5 GM/50 ML VIAL IVPB SCH (11:15)
[2017-11-04] MEDS ORDERED: OCTREOTIDE ACETATE 500 MCG/1 ML - 1 ML VIAL SQ SCH (12:00)
--- NOTE | 2017-11-04 12:05 | PN ---
Progress Note (short form) - Note Progress Note: seen at bedside no complaints getting blood transfusion labs reviewed s creat rising phos low Current Medications Albumin Human (Albumin Human 25%) 25 gm IVPB DAILY [facility] Stop: 11/07/17 10:01 Betamethasone Dipropionate (Diprosone 0.05% Ointment -) 1 applic TP BID [facility] Last Admin: 11/04/17 09:30 Dose: 1 applic Cyanocobalamin (Vitamin B12 -) 100 mcg PO DAILY [facility] Last Admin: 11/04/17 09:29 Dose: 100 mcg Folic Acid (Folic Acid -) 1 mg PO DAILY [facility] Last Admin: 11/04/17 09:29 Dose: 1 mg Furosemide (Lasix -) 40 mg PO DAILY [facility] Last Admin: 11/04/17 09:30 Dose: 40 mg Gabapentin (Neurontin -) 300 mg PO QID [facility] Last Admin: 11/04/17 09:29 Dose: 300 mg Sodium Chloride (Normal Saline -) 1,000 mls @ 83 mls/hr IV ASDIR [facility] Stop: 11/04/17 16:00 Last Admin: 11/03/17 18:00 Dose: 83 mls/hr Ketoconazole (Nizoral 2% Shampoo -) 1 applic TP Q72H [facility] Last Admin: 11/03/17 17:15 Dose: Not Given Lactulose (Cephulac (Oral Use)) 30 gm PO QID [facility] Last Admin: 11/04/17 09:30 Dose: 30 gm Magnesium Oxide (Mag-Ox -) 400 mg PO BID [facility] Last Admin: 11/04/17 09:29 Dose: 400 mg Midodrine (Proamatine -) 7.5 mg PO TID-MID [facility] Octreotide Acetate (Sandostatin -) 200 mcg SQ TID [facility] Oxycodone HCl (Roxicodone -) 5 mg PO Q8H PRN PRN Reason: PAIN LEVEL 6-10 Last Admin: 11/04/17 11:01 Dose: 5 mg Pantoprazole Sodium (Protonix -) 40 mg PO DAILY [facility] Last Admin: 11/04/17 09:29 Dose: 40 mg Rifaximin (Xifaxan -) 550 mg PO BID [facility] Last Admin: 11/04/17 09:29 Dose: 550 mg Sertraline HCl (Zoloft -) 25 mg PO DAILY [facility] Last Admin: 11/04/17 09:29 Dose: 25 mg Spironolactone (Aldactone -) 50 mg PO BID [facility] Thiamine HCl (Vitamin B1 -) 100 mg PO DAILY [facility] Last Admin: 11/04/17 09:30 Dose: 100 mg Last Vital Signs Temp Pulse Resp BP Pulse Ox 99.3 F 82 19 89/45 97 11/04/17 06:19 11/04/17 06:19 11/04/17 06:19 11/04/17 06:19 11/04/17 05:00 lungs clear heart reg abd distended IMP- severe anemia hyphosphotemia liver disease ehrberth Plan- f/u phosphorus, may increase 2/2 herberth and food and prbc
--- NOTE | 2017-11-04 12:57 | PN ---
Progress Note (short form) - Note Progress Note: Dr. Barajas accepted the patient. Transfer initiated Problem List - Problems (1) SBP (spontaneous bacterial peritonitis) Code(s): K65.2 - SPONTANEOUS BACTERIAL PERITONITIS (2) Hepatorenal syndrome Code(s): K76.7 - HEPATORENAL SYNDROME (3) Cellulitis Code(s): L03.90 - CELLULITIS, UNSPECIFIED Qualifiers: Site of cellulitis: other site Qualified Code(s): L03.818 - Cellulitis of other sites (4) Acute kidney injury Code(s): N17.9 - ACUTE KIDNEY FAILURE, UNSPECIFIED (5) Liver cirrhosis Code(s): K74.60 - UNSPECIFIED CIRRHOSIS OF LIVER Qualifiers: Hepatic cirrhosis type: alcoholic cirrhosis Ascites presence: with ascites Qualified Code(s): K70.31 - Alcoholic cirrhosis of liver with ascites
--- NOTE | 2017-11-04 15:40 | PN ---
Progress Note (short form) - Note Progress Note: AAOx3, NAD. No external stigmata of GI bleeding. Cellulitis better. Awaiting transfer to liver service at [facility]. Pt aware. Problem List - Problems (1) SBP (spontaneous bacterial peritonitis) Code(s): K65.2 - SPONTANEOUS BACTERIAL PERITONITIS (2) Hepatorenal syndrome Code(s): K76.7 - HEPATORENAL SYNDROME (3) Cellulitis Code(s): L03.90 - CELLULITIS, UNSPECIFIED Qualifiers: Site of cellulitis: other site Qualified Code(s): L03.818 - Cellulitis of other sites (4) Acute kidney injury Code(s): N17.9 - ACUTE KIDNEY FAILURE, UNSPECIFIED (5) Liver cirrhosis Code(s): K74.60 - UNSPECIFIED CIRRHOSIS OF LIVER Qualifiers: Hepatic cirrhosis type: alcoholic cirrhosis Ascites presence: with ascites Qualified Code(s): K70.31 - Alcoholic cirrhosis of liver with ascites
[2017-11-04] MEDS ORDERED: VANCOMYCIN 1,000 MG VIAL (RESTRICTED TO ID ONLY) IVPB ONE (16:38)
[2017-11-04] MEDS ORDERED: VANCOMYCIN 1,250 MG in DEXTROSE 5%-WATER - 250 ML IVPB ONE (17:00)
[2017-11-04 18:19] VITALS: TEMP 98
[2017-11-04 20:31] VITALS: BP 110/55; PULSE 83
[2017-11-05 06:07] LABS: SERUM IRON SATURATION 31 % (15-55); TOTAL IRON BINDING CAPACITY 106 ug/dL (250-450); UIBC 73 ug/dL (111-343)
== END 2017-11-04 20:55 | disposition short-term general hospital (02) | DRG 871 ==
LOC: JER 09:27 → JERBED 12:08 → J4S 15:32
PROVIDERS: ADMIT Family Medicine; ATTEND Family Medicine
DX: A41.9 Sepsis, unspecified organism (principal); K76.7 Hepatorenal syndrome; K65.2 Spontaneous bacterial peritonitis; E87.1 Hypo-osmolality and hyponatremia; K70.31 Alcoholic cirrhosis of liver with ascites; L03.119 Cellulitis of unspecified part of limb; L03.311 Cellulitis of abdominal wall; N17.9 Acute kidney failure, unspecified; K72.90 Hepatic failure, unspecified without coma; D64.9 Anemia, unspecified; F32.9 Major depressive disorder, single episode, unspecified; D72.829 Elevated white blood cell count, unspecified; E87.70 Fluid overload, unspecified; I12.9 Hypertensive chronic kidney disease with stage 1 through stage 4 chronic kidney disease, or unspecified chronic kidney disease; N18.9 Chronic kidney disease, unspecified; R50.9 Fever, unspecified; E83.39 Other disorders of phosphorus metabolism; L40.8 Other psoriasis
CPT/HCPCS: 36415; 36430; 70450-TC; 71045-TC-FY; 76700-TC; 80053; 81003; 81015; 82140; 82570; 82728; 83036; 83540; 83550; 83735; 84100; 84156; 84540; 85025; 85027; 85610; 86140; 86850; 86900; 86901; 86922; 87040; 87086; 87186; 93005; 93010; 93306-TC; 99285-25; G0480; J7030; P9038; P9047; P9058

== ENCOUNTER 2017-11-23 17:59 | Inpatient (IN) | payer BC ==
[2017-11-23 18:39] VITALS: BMI 29.6
--- NOTE | 2017-11-23 19:50 | PDOC ---
History of Present Illness - General History Source: Patient Exam Limitations: No Limitations - History of Present Illness Initial Comments: 11/23/17 20:15 The patient is a 52 year old male with a significant PMH of anemia, liver cirrhosis, psoriasis, encephalopathy, HTN, and depression who presents with his daughter to the emergency department with increased jaundice, abdominal distension, vomiting, and diarrhea over the past week. The patients daughter notes he has not eaten over the past day. She also notes he has appeared more confused recently and she states she believes his ammonia is high. She reports the patient was abdominally tapped and drained a few weeks ago at [facility] but has not been tapped since. The patients daughter denies fevers or chills. The patient denies chest pain, shortness of breath, headache and dizziness. Denies dysuria, frequency, urgency and hematuria. Allergies: NKA Past surgical history: None reported. Social history: Alcohol abuse. No reported cigarette or drug use. PCP: Dr. Ashley <Arnel Potter - Last Filed: 11/23/17 20:20> - General History Source: Patient <Deepak Covington - Last Filed: 11/30/17 19:23> - General Chief Complaint: Pain, Acute Stated Complaint: PAIN Time Seen by Provider: 11/23/17 19:37 Past History <Arnel Potter - Last Filed: 11/23/17 20:20> - Past Medical History Anemia: Yes Asthma: No Cancer: No Cardiac Disorders: No CVA: No COPD: No CHF: No DVT: No Dementia: No Diabetes: No GI Disorders: Yes (pancreatitis) Disorders: No HTN: Yes Hypercholesterolemia: No Kidney Stones: No Liver Disease: Yes (CIRROSIS & ASCITES) Psychiatric Problems: Yes (depression) Seizures: No Thyroid Disease: No - Reproductive History Testicular Surgery: No - Immunization History Immunization Up to Date: Yes - Suicide/Smoking/Psychosocial Hx Smoking History: Never smoked Have you smoked in the past 12 months: No Information on smoking cessation initiated: No 'Breaking Loose' booklet given: 07/22/17 Hx Alcohol Use: No Drug/Substance Use Hx: No Substance Use Type: None Hx Substance Use Treatment: No <Deepak Covington - Last Filed: 11/30/17 19:23> - Past Medical History Allergies/Adverse Reactions: Allergies Allergy/AdvReac Type Severity Reaction Status Date / Time No Known Allergies Allergy Verified 11/23/17 18:32 Home Medications: Ambulatory Orders Folic Acid - 1 mg PO DAILY #30 tablet 06/23/17 Cyanocobalamin [Vitamin B12 -] 100 mcg PO DAILY #30 tablet 07/28/17 Furosemide [Lasix -] 40 mg PO DAILY #30 tablet 07/28/17 Pantoprazole Sodium [Protonix -] 40 mg PO DAILY #30 tablet.ec 07/28/17 Thiamine HCl [Vitamin B1] 100 mg PO DAILY #30 tablet 07/28/17 Gabapentin 300 mg PO QID #120 capsule MDD 4 08/12/17 Rifaximin [Xifaxan -] 550 mg PO BID #60 tablet MDD 2 08/12/17 Sertraline HCl [Zoloft -] 25 mg PO DAILY #30 tablet MDD 1 08/12/17 Lactulose (Oral Use) [Cephulac -] 35 gm PO QID 11/03/17 oxyCODONE HCL [Roxicodone -] 5 mg PO TID PRN MDD 3 11/03/17 Hydroxyzine HCl 50 mg PO QID 11/23/17 Magnesium 500 mg PO BID 11/23/17 Nystatin Oral Suspension - [Nystatin Oral Susp 924967 Units/5 ML -] 100,000 units PO QID 11/23/17 Review of Systems - Review of Systems Able to Perform ROS?: Yes Comments:: 11/23/17 20:15 CONSTITUTIONAL: (+) Increased jaundice. (+) Increased confusion. Absent: fever, chills, diaphoresis, generalized weakness, malaise, loss of appetite HEENT: Absent: rhinorrhea, nasal congestion, throat pain, throat swelling, difficulty swallowing, mouth swelling, ear pain, eye pain, visual Changes CARDIOVASCULAR: Absent: chest pain, syncope, palpitations, irregular heart rate, lightheadedness , peripheral edema RESPIRATORY: Absent: cough, shortness of breath, dyspnea with exertion, orthopnea, wheezing, stridor, hemoptysis GASTROINTESTINAL: (+) Nausea (+) Vomiting (+) Diarrhea. (+) Abdominal distension. Absent: abdominal distension, constipation, melena, hematochezia GENITOURINARY: Absent: dysuria, frequency, urgency, hesitancy, hematuria, flank pain, genital pain MUSCULOSKELETAL: Absent: myalgia, arthralgia, joint swelling SKIN: Absent: rash, itching, pallor HEMATOLOGIC/IMMUNOLOGIC: Absent: easy bleeding, easy bruising, lymphadenopathy, frequent infections ENDOCRINE: Absent: unexplained weight gain, unexplained weight loss, heat intolerance, cold intolerance NEUROLOGIC: Absent: headache, focal weakness or paresthesias, dizziness, unsteady gait, seizure, bladder or bowel incontinence PSYCHIATRIC: Absent: anxiety, depression, suicidal or homicidal ideation, hallucinations. <Arnel Potter - Last Filed: 11/23/17 20:20> *Physical Exam - Vital Signs Last Vital Signs Temp Pulse Resp BP Pulse Ox 98.5 F 91 H 20 150/78 96 11/23/17 18:32 11/23/17 18:32 11/23/17 18:32 11/23/17 18:32 11/23/17 18:32 - Physical Exam Comments: 11/23/17 20:16 GENERAL: Well developed, well nourished. Awake and alert. No acute distress. HEENT: (+) Sclera slightly icteric. Normocephalic, atraumatic. PERRLA, EOMI. No conjunctival pallor. Moist mucous membranes. Oropharynx is clear. NECK: Supple. Full ROM. No JVD. Carotid pulses 2+ and symmetric, without bruits. No thyromegaly. No lymphadenopathy. CARDIOVASCULAR: Regular rate and rhythm. No murmurs, rubs, or gallops. Distal pulses are 2+ and symmetric. PULMONARY: No evidence of respiratory distress. Lungs clear to auscultation bilaterally. No wheezing, rales or rhonchi. ABDOMINAL: (+) Shifting dullness. Soft. Non-tender. Non-distended. No rebound or guarding. No organomegaly. Normoactive bowel sounds. MUSCULOSKELETAL Normal range of motion at all joints. No bony deformities or tenderness. No CVA tenderness. EXTREMITIES: No cyanosis. No clubbing. No edema. No calf tenderness. SKIN: (+) Jaundiced. Warm and dry. Normal capillary refill. No rashes. NEUROLOGICAL: Alert, awake, appropriate. Cranial nerves 2-12 intact. No deficits to light touch and temperature in face, upper extremities and lower extremities. No motor deficits in the in face, upper extremities and lower extremities. Normoreflexic in the upper and lower extremities. Toes are downgoing bilaterally. Gait is normal without ataxia. PSYCHIATRIC: Cooperative. Good eye contact. Appropriate mood and affect. <Arnel Potter - Last Filed: 11/23/17 20:20> - Vital Signs Last Vital Signs Temp Pulse Resp BP Pulse Ox 98.5 F 91 H 20 150/78 96 11/23/17 18:32 11/23/17 18:32 11/23/17 18:32 11/23/17 18:32 11/23/17 18:32 <Deepak Covington - Last Filed: 11/30/17 19:23> Heart Score/ECG Review #1 11/23/17 20:20 EKG done at 20:06 Vent rate 86 bpm Normal sinus rhtyhm Orlonged QT Abnormal ECG <Arnel Potter - Last Filed: 11/23/17 20:20> ED Treatment Course - LABORATORY CBC & Chemistry Diagram: 11/30/17 10:15 11/30/17 10:15 <Deepak Covington - Last Filed: 11/30/17 19:23> Medical Decision Making - Medical Decision Making 11/30/17 19:22 Dr. Covington: The scribe's documentation has been prepared under my direction and personally reviewed by me in its entirery. I confirm that the note above accurately reflects all work, treatment, procedures, and medical decision making performed by me. <Deepak Covington - Last Filed: 11/30/17 19:23> *DC/Admit/Observation/Transfer - Attestations Scribe Attestion: 11/23/17 20:16 Documentation prepared by Arnel Potter, acting as medical sales representative for Deepak Covington DO. <Arnel Potter - Last Filed: 11/23/17 20:20> - Discharge Dispostion Admit: Yes <Deepak Covington - Last Filed: 11/30/17 19:23> Diagnosis at time of Disposition: Liver cirrhosis, Anemia, CHF (congestive heart failure) - Discharge Dispostion Condition at time of disposition: Stable
[2017-11-23 20:53] LABS: MCH 31.5 pg (25.7-33.7); MEAN CELL VOLUME 91.4 fl (80-96); MONO % 8.6 % (3.8-10.2)
[2017-11-23 21:10] LABS: BASO % 0.5 % (0-2.0); EOS % 3.2 % (0-4.5); HEMATOCRIT 19.9 % (35.4-49); LYMPH % 19.7 % (8-40); MCHC 34.5 g/dl (32.0-35.9); MEAN PLT VOLUME 8.9 fl (7.5-11.1); PLATELET COUNT 64 K/MM3 (134-434); RBC 2.18 M/mm3 (4.00-5.60); RDW 17.2 % (11.9-15.9); WHITE BLOOD COUNT 6.4 K/mm3 (4.0-10.0)
[2017-11-23 21:12] LABS: HEMOGLOBIN 6.9 GM/dL (11.7-16.9)
[2017-11-23 21:31] LABS: ANION GAP 5 (8-16); BILIRUBIN,TOTAL 6.2 mg/dL (0.2-1.0); BLOOD UREA NITROGEN 24 mg/dL (7-18); CALCIUM 8.7 mg/dL (8.5-10.1); CHLORIDE 104 mmol/L (98-107); CO2 26 mmol/L (21-32); CREATININE 1.7 mg/dL (0.7-1.3); GLUCOSE,RANDOM 109 mg/dL (74-106); LIPASE 85 U/L (73-393); MAGNESIUM 1.9 mg/dL (1.8-2.4); POTASSIUM 4.6 mmol/L (3.5-5.1); SGOT/AST 65 U/L (15-37); SGPT/ALT < 6 U/L (12-78); SODIUM 135 mmol/L (136-145); TOT PROT 7.6 g/dl (6.4-8.2)
[2017-11-23 21:33] LABS: ALK PHOS 71 U/L (45-117); N-TERMINAL BNP 7258.68 pg/ml (5-125)
[2017-11-23 21:53] LABS: INR 3.45 (0.82-1.09)
[2017-11-23] MEDS ORDERED: morphine CARPU-JECT 2 MG/1 ML DISP.SYRIN IVPUSH ONE (22:39)
[2017-11-23] MEDS ORDERED: ONDANSETRON 4 MG/2 ML VIAL IVPUSH STA (22:39)
[2017-11-23] MEDS ORDERED: morphine SULFATE 4 MG/ML VIAL ONE (22:44)
[2017-11-23] MEDS ORDERED: ONDANSETRON 4 MG/2 ML VIAL ONE (22:45)
[2017-11-23] MEDS ORDERED: FUROSEMIDE 40 MG/4 ML INJECTABLE VIAL IVPUSH ONE (22:47)
--- NOTE | 2017-11-23 22:47 | PN ---
Teaching Attending Note Name of Resident: Tisha Mendoza ATTENDING PHYSICIAN STATEMENT I saw and evaluated the patient. I reviewed the resident's note and discussed the case with the resident. I agree with the resident's findings and plan as documented. SUBJECTIVE: 52 M with pmhx. of ETOH cirrohosis/ascited, liver failure, encephalopathy, varices, psoriasis, anemia, HTN, and depression who presents with abdominal distension, and increased jaundice, vomiting and diarrhea. As per daughter he is more confused than his baseline. Notes he was recently at [facility] and had fluid taken out. States he has no abdominal distension, but does note OBJECTIVE: Physical: VS: Vital Signs Period Temp Pulse Resp BP Sys/Palmer Pulse Ox Last 24 Hr 98.5 F 91-92 20-20 150-153/78-80 93-96 GEN: NAD, resting in bed, AA0X3 HEENT: NCAT, PERRL, Throat without erythema or exudates CARD: RRR S1, S2 RESP: CTAB ABD: Bsx4, NTD to palpation, Distension EXT: +2 Pitting edema, Bilateral and equal CBCD WBC 6.4 K/mm3 (4.0-10.0) D 11/23/17 20:38 RBC 2.18 M/mm3 (4.00-5.60) L 11/23/17 20:38 Hgb 6.9 GM/dL (11.7-16.9) L* D 11/23/17 20:38 Hct 19.9 % (35.4-49) L D 11/23/17 20:38 MCV 91.4 fl (80-96) 11/23/17 20:38 MCHC 34.5 g/dl (32.0-35.9) 11/23/17 20:38 RDW 17.2 % (11.9-15.9) H D 11/23/17 20:38 Plt Count 64 K/MM3 (134-434) L 11/23/17 20:38 MPV 8.9 fl (7.5-11.1) D 11/23/17 20:38 CMP Sodium 135 mmol/L (136-145) L 11/23/17 20:38 Potassium 4.6 mmol/L (3.5-5.1) 11/23/17 20:38 Chloride 104 mmol/L (98-107) D 11/23/17 20:38 Carbon Dioxide 26 mmol/L (21-32) 11/23/17 20:38 Anion Gap 5 (8-16) L 11/23/17 20:38 BUN 24 mg/dL (7-18) H 11/23/17 20:38 Creatinine 1.7 mg/dL (0.7-1.3) H D 11/23/17 20:38 Creat Clearance w eGFR 42.21 (>60) 11/23/17 20:38 Random Glucose 109 mg/dL (74-106) H D 11/23/17 20:38 Calcium 8.7 mg/dL (8.5-10.1) 11/23/17 20:38 Total Bilirubin 6.2 mg/dL (0.2-1.0) H D 11/23/17 20:38 AST 65 U/L (15-37) H D 11/23/17 20:38 ALT < 6 U/L (12-78) L D 11/23/17 20:38 Alkaline Phosphatase 71 U/L (45-117) D 11/23/17 20:38 Total Protein 7.6 g/dl (6.4-8.2) 11/23/17 20:38 Albumin 4.0 g/dl (3.4-5.0) D 11/23/17 20:38 CARDIAC ENZYMES Creatine Kinase 24 IU/L (39-308) L 11/23/17 20:38 Troponin I 0.03 ng/ml (0.00-0.05) D 11/23/17 20:38 EKG done at 20:06 Vent rate 86 bpm Normal sinus rhtyhm Prlonged QT Abnormal ECG CXR: No acute lung disease MELD: 33 ASSESSMENT AND PLAN: 52 M with pmhx. of ETOH cirrohosis/ascited, liver failure, encephalopathy, varices, psoriasis, anemia, HTN, and depression who presents with abdominal distension, and increased jaundice, vomiting and diarrhea being admitted for anemia 1.) AMS- Resolved - STAT Abd US - No signs of infections, Abd NTD - Less likely SBP at this point - CT HEAD WO con - Ammonia level wnl 2.) ETOH Cirrohosis/Hepatic Failure - Fluid/Na restrict - C/W Rifaxamin, hold lactulose (diarrhea0 - GI consult - MELD 33 - Contact liver tx. center in am - If increased Ascites on US- Drain with IR 3.) Anemia, Normocytic - Fe Studies, - ?PICC Line change, oozing - B12. Folate - Transfuse 1 U PRBC - Stool Occult - FFP 4.) Supratheraputic INR - Due to Hep. Failure 5.) Diarrhea - Hold Lactulose - C. Diff - Cx 6.) PATRICIA - Hepatorenal? - Improved Cr since last visit - Hold Aldactone - Renal Consult 7.)Dvt Ppx - SCDs Place in Tele
[2017-11-23] MEDS ORDERED: FUROSEMIDE 40 MG/4 ML INJECTABLE VIAL ONE (22:48)
[2017-11-23 23:00] LABS: ACETONE SERUM NEGATIVE (NEGATIVE)
--- NOTE | 2017-11-23 23:47 | HP ---
CHIEF COMPLAINT: Confusion PCP: Dr Ashley HISTORY OF PRESENT ILLNESS: 52yo M with a PMHx of decompensated alcoholic liver cirrhosis presents to the ER due to "confusion". He is alert and fully oriented, but as per , the patient has been increasingly more talkative. She also notes increasing jaundice , abdominal distension, diarrhea, and bleeding around the mouth and PICC site. She called liver specialists at [facility] who advised her to bring him to ER. Denies CP, SOB, fevers, chills, abd pain. He was admitted her this month for sepsis 2/2 abdominal cellulitis and MSSA bacteremia. Due to his complex liver pathology, he was transferred to [facility] for HLOC. There, he underwent a paracentesis, negative for SBP. They inserted PICC line, complicated by dislodgement and bleeding post-procedure requiring multiple blood products to correct anemia and elevated INR. The line was replaced, and he was placed on 4 wks of Cefazolin Q6H (to be completed December 02 ) In the ER, the patient was hemodynamically stable. Labs are consistent w/ his chronic LF, but is notable for elevated Tbili and INR. He was given Lasix 40mg. Abd U/s and Head CT results are pending. Recent Travel: Denies PAST MEDICAL HISTORY: Alcohol cirrhosis/ascites, liver failure, encephalopathy, varices, psoriasis, anemia, hypertension, and depression PAST SURGICAL HISTORY: Denies Social History: Smoking: Denies Alcohol: Prior chronic alcohol abuse Drugs: Denies Allergies: No Known Allergies Allergy (Verified 11/23/17 18:32) HOME MEDICATIONS: Home Medications Medication Instructions Recorded Folic Acid - 1 mg PO DAILY #30 tablet 06/23/17 Cyanocobalamin [Vitamin B12 -] 100 mcg PO DAILY #30 tablet 07/28/17 Furosemide [Lasix -] 40 mg PO DAILY #30 tablet 07/28/17 Pantoprazole Sodium [Protonix -] 40 mg PO DAILY #30 tablet.ec 07/28/17 Thiamine HCl [Vitamin B1] 100 mg PO DAILY #30 tablet 07/28/17 Gabapentin 300 mg PO QID #120 capsule MDD 4 08/12/17 Rifaximin [Xifaxan -] 550 mg PO BID #60 tablet MDD 2 08/12/17 Sertraline HCl [Zoloft -] 25 mg PO DAILY #30 tablet MDD 1 08/12/17 Lactulose (Oral Use) [Cephulac -] 35 gm PO QID 11/03/17 oxyCODONE HCL [Roxicodone -] 5 mg PO TID PRN MDD 3 11/03/17 Hydroxyzine HCl 50 mg PO QID 11/23/17 Magnesium 500 mg PO BID 11/23/17 Nystatin Oral Suspension - 100,000 units PO QID 11/23/17 [Nystatin Oral Susp 649349 Units/5 ML -] REVIEW OF SYSTEMS CONSTITUTIONAL: Absent: fever, chills, diaphoresis, generalized weakness, malaise, loss of appetite, weight change HEENT: Absent: rhinorrhea, nasal congestion, throat pain, throat swelling, difficulty swallowing, mouth swelling, ear pain, eye pain, visual changes CARDIOVASCULAR: Absent: chest pain, syncope, palpitations, irregular heart rate , lightheadedness, peripheral edema RESPIRATORY: Absent: cough, shortness of breath, dyspnea with exertion, orthopnea, wheezing, stridor, hemoptysis GASTROINTESTINAL:Absent: abdominal pain, abdominal distension, nausea, vomiting , diarrhea, constipation, melena, hematochezia GENITOURINARY: Absent: dysuria, frequency, urgency, hesitancy, hematuria, flank pain, genital pain MUSCULOSKELETAL: Absent: myalgia, arthralgia, joint swelling, back pain, neck pain SKIN: Absent: rash, itching, pallor HEMATOLOGIC/IMMUNOLOGIC: Absent: easy bleeding, easy bruising, lymphadenopathy, frequent infections ENDOCRINE:Absent: unexplained weight gain, unexplained weight loss, heat intolerance, cold intolerance NEUROLOGIC: Absent: headache, focal weakness or paresthesias, dizziness, unsteady gait, seizure, mental status changes, bladder or bowel incontinence PSYCHIATRIC: Absent: anxiety, depression, suicidal or homicidal ideation, hallucinations. PHYSICAL EXAMINATION Vital Signs Period Temp Pulse Resp BP Sys/Palmer Pulse Ox Last 24 Hr 98.5 F 91-92 20-20 150-153/78-80 93-96 GEN: Talkative, but AAOx3, NAD, Lying comfortably, appears jaundiced HEENT: PERRLa, EOMi, no jVD, scleral icterus CV: S1, S2, RRR LUNG: CTABL ABD: Soft, distended, +fluid wave, decreased redness MSK: 3+ pitting edema in BLLE, mild redness, doesn't appear infected NEURO: CN 2-12 intact, no msk or sensation deficits ASSESSMENT/PLAN: 52yo M with a PMHx of decompensated alcoholic liver cirrhosis presents to the ER due to numerous complaints related to his chronic liver failure # Confusion -- On my exam, patient is AAOx3 just talkative. Patient was discharged from [facility] on a different medication regimen, could be contributing. Will get nephrology Dr Prado on board for medication mgmt. This could be just progression of his chronic liver failure. However, we obtained head CT, results pending. Will get UA. NH3 level normal. Low concern for SBP. # Decompensated Alcoholic Cirrhosis -- Elevated Tbili detected on lab, will fractionate to ensure no obstructive cause. Will obtain abd u/s for the distension to look at fluid pockets. COuld need therapeutic drainage this admission by IR. Low concern for SBP. Will correct anemia and coagulopathy due to mucosal bleeding today. Pt is not volume overloaded, but restarted lasix due to BLLE edema. Continue rifaximin and protonix. wishes to have him managed at [facility], but we advised that a liver center is better suited to manage his condition. # Normocytic Anemia -- Due to combination of liver failure and acute bleeding today. Will transfuse 1unit. Keep Hgb >7 # Diarrhea -- Could be from the cefazolin, but will send C.diff sample. Hold lactulose due to diarrhea # Elevated INR -- From cirrhosis. Will give 1u FFP due to bleeding this AM. Repeat INR in AM # Thrombocytopenia -- Chronic, from cirrhosis. Will hold off on PLT transfusion. Monitor for bleeds # Hyponatremia -- CHronic, from cirrhosis. Fluid restriction. Sodium controlled diet # Sepsis 2/2 bacteremia -- Resolved. Continue IV Cefazolin via PICC line. # FEN/PPx -- No IVF, sodium controlled diet. SCDs due to coagulopathy # Dispo -- Admit to med/surg Case d/w Dr Mendoza & Dr Dimas Hodgson MD - PGY1 Night Immigration Officer Visit type - Emergency Visit Emergency Visit: Yes ED Registration Date: 11/23/17 Care time: The patient presented to the Emergency Department on the above date and was hospitalized for further evaluation of their emergent condition. - New Patient This patient is new to me today: Yes Date on this admission: 11/24/17 - Critical Care Critical Care patient: No Hospitalist Screening - Colonoscopy Questionnaire Colonoscopy Questionnaire: Colonoscopy Questionnaire - Patient: 50 - 75 years old and never had a screening colonoscopy: Unknown History of colon or rectal polyps, or CA: Unknown History of IBD, Crohn's disease or UC: Unknown History of abdominal radiation therapy as a child: Unknown - Relative: 1 with colon or rectal CA, or polyps at age 60 or younger: Unknown Colon or rectal CA diagnosed at age 45 or younger: Unknown Multiple relatives with colon or rectal CA: Unknown - Outcome: Screening Result: Negative Screen
--- NOTE | 2017-11-24 00:23 | MSN ---
Admitting History and Physical - Primary Care Physician PCP: Dr. Vaughan - Admission Chief Complaint: diarrhea, jaundice, bleeding History of Present Illness: Carlos A Gottlieb is a 52 year old male with a PMHx of Alcohol cirrhosis/ascites, liver failure, encephalopathy who is admitted after his noted increased jaundice, increased talkativeness, and diarrhea. The patient was recently transferred to [facility] from [place] for a fall and encephalopathy. Patient was treated for sepsis 2/2 cellulitis and ongoing treatment of his liver failure. Patient was tapped and 2L of fluid was removed, was negative for SBP. Patient was discharged with a PICC line for continued cellulitis treatment. On present admission, noted that the patient had become more talkative and more rambling in his speech. Additionally, she stated that he had increased bouts of watery non-bloody foul-smelling diarrhea. Increased jaundice was also reported. Chronic cough was reported as well and increased edema in the lower extremities. On present admission, patient and denied reports of chest pain , shortness of breath, abd pain, n/v, weakness, myalgias. In the ED, course was notable for Total Bili 6.2, Direct Bili 2.3, H/H 6.9/19.9 , INR 3.45. LFTs showed AST 65, ALT <6. Patient was given Lasix 60mg IV, Zofran , morphine. History Source: Patient, Family Member Limitations to Obtaining History: Poor Historian - Past Medical History Cardiovascular: Yes: HTN Gastrointestinal: Yes: Ascites Hepatobiliary: Yes: Cirrhosis (Alcohol induced, decompensated), Other (History of severe alcoholic hepatitis, hepatic encephalopathy) Psych: Yes: Depression Musculoskeletal: Yes: Other (Cellulitis and tenosynovitis +/- osteomyelitis 3rd/ 4th digit of left hand) Dermatology: Yes: Cellulitis (of LE and of hand), Psoriasis - Smoking History Smoking history: Never smoked Have you smoked in the past 12 months: No - Alcohol/Substance Use Hx Alcohol Use: Yes (quit since last June, prior was a chronic abuser) History of Substance Use: reports: None - Social History ADL: Independent Occupation: disabled History of Recent Travel: No Home Medications - Allergies Allergies/Adverse Reactions: Allergies Allergy/AdvReac Type Severity Reaction Status Date / Time No Known Allergies Allergy Verified 11/23/17 18:32 - Home Medications Home Medications: Ambulatory Orders Folic Acid - 1 mg PO DAILY #30 tablet 06/23/17 Cyanocobalamin [Vitamin B12 -] 100 mcg PO DAILY #30 tablet 07/28/17 Furosemide [Lasix -] 40 mg PO DAILY #30 tablet 07/28/17 Pantoprazole Sodium [Protonix -] 40 mg PO DAILY #30 tablet.ec 07/28/17 Thiamine HCl [Vitamin B1] 100 mg PO DAILY #30 tablet 07/28/17 Gabapentin 300 mg PO QID #120 capsule MDD 4 08/12/17 Rifaximin [Xifaxan -] 550 mg PO BID #60 tablet MDD 2 08/12/17 Sertraline HCl [Zoloft -] 25 mg PO DAILY #30 tablet MDD 1 08/12/17 Lactulose (Oral Use) [Cephulac -] 35 gm PO QID 11/03/17 oxyCODONE HCL [Roxicodone -] 5 mg PO TID PRN MDD 3 11/03/17 Hydroxyzine HCl 50 mg PO QID 11/23/17 Magnesium 500 mg PO BID 11/23/17 Nystatin Oral Suspension - [Nystatin Oral Susp 488009 Units/5 ML -] 100,000 units PO QID 11/23/17 Family Disease History - Family Disease History Family Disease History: Other: Grandparent Review of Systems - Review of Systems Constitutional: reports: No Symptoms Eyes: reports: No Symptoms HENT: reports: Gingival Bleeding (stated had a lot of bleeding yesterday), Other (dryness around the mouth and cracking around the lips) Neck: reports: No Symptoms Cardiovascular: reports: No Symptoms Respiratory: reports: Cough (chronic) Gastrointestinal: reports: No Symptoms Genitourinary: reports: No Symptoms Musculoskeletal: reports: No Symptoms Integumentary: reports: Wound (bleeding from PICC site) Neurological: reports: Confusion ( stated current state is a change in mental status that patient is more talkative than usual) Endocrine: reports: No Symptoms Hematology/Lymphatic: reports: No Symptoms Psychiatric: reports: No Symptoms Physical Examination Vital Signs: Vital Signs Temperature 98.5 F 11/23/17 18:32 Pulse Rate 92 H 11/23/17 22:41 Respiratory Rate 20 11/23/17 22:41 Blood Pressure 153/80 11/23/17 22:41 O2 Sat by Pulse Oximetry (%) 93 L 11/23/17 22:41 Constitutional: Yes: Well Nourished, No Distress, Calm Eyes: Yes: EOM Intact, PERRL, Sclera Icterus HENT: Yes: Other (dryness and cracking around the mouth and lips, ulcers inside the mouth noted) Neck: Yes: WNL, Supple, Trachea Midline Cardiovascular: Yes: WNL, Regular Rate and Rhythm, S1, S2 Respiratory: Yes: WNL, Regular, CTA Bilaterally. No: Rales, Rhonchi Gastrointestinal: Yes: Normal Bowel Sounds, Ascites, Distention ...Rectal Exam: Yes: Deferred Musculoskeletal: Yes: WNL Extremities: Yes: Other (PICC line present in R arm, suture around the site noted from current admission) Edema: Yes Edema: LLE: 2+, RLE: 2+ Peripheral Pulses WNL: Yes Peripheral Pulses: Left Doralis Pedis: 1+, Right Dorsalis Pedis: 1+ Integumentary: Yes: Jaundice Wound/Incision: Yes: Sutures Intact (at site of PICC line in R arm) Neurological: Yes: WNL, Alert, Oriented (alert and oriented x3) ...Motor Strength: WNL Psychiatric: Yes: WNL, Alert, Oriented, Other (frequently speaks off topic, rambling speech) Labs: CBC, BMP 11/23/17 20:38 11/23/17 20:38 Problem List - Problems (1) Anemia Code(s): D64.9 - ANEMIA, UNSPECIFIED Qualifiers: (2) Liver cirrhosis Code(s): K74.60 - UNSPECIFIED CIRRHOSIS OF LIVER (3) Alcoholic cirrhosis Code(s): K70.30 - ALCOHOLIC CIRRHOSIS OF LIVER WITHOUT ASCITES Qualifiers: Ascites presence: with ascites Qualified Code(s): K70.31 - Alcoholic cirrhosis of liver with ascites Assessment/Plan Patient is a 52 y/o male with a PMHx of Alcohol cirrhosis/ascites, liver failure , encephalopathy, varices, psoriasis, anemia, hypertension, and depression admitted with diarrhea, increased jaundice, anemia. Acute on Chronic Liver Failure - decreased liver function through INR, bilirubin. Increased amount of ascities - INR 3.45, BUN 24, CRE 1.7, T bili 6.2, Direct Bili 2.3, ammonia within normal limits - continue to monitor liver function - Abd U/S ordered - fluid restriction - possible consult for drainage through IR - Lasix 60mg IV in ED given - Lasix 40mg IV daily - spironolactone 50mg bid - rifaximin 550mg bid - ondasetron, pantoprazole - GI consulted, Dr. Craig, recs appreciated - Nephrology consulted, Dr. Gonzalez, recs appreciated Confusion - patient is alert and oriented. more talkative that states is change from baseline - Head CT ordered to rule out acute intracranial process - Ammonia within normal limits - UA ordered Anemia - decreased H/H possible secondary to bleeding from the mouth and/or PICC site - H/H 6.9/19.9 - 1 unit PRBCs transfused - B12, folate, iron studies, Mg, P - stool occult blood - thiamine, folate, Vit B12 ordered Diarrhea - possible secondary to antibiotic coverage for cellulitis - C diff toxin - hold lactulose Increased INR - likely secondary to liver failure - FFP to be given - repeat INR F/E/N - sodium restricted diet - no fluids now - electrolytes within normal limits - replete as necessary DVT PPx - SCDs Disposition - admitted to med-surg
[2017-11-24 01:04] LABS: URINE APPEARANCE CLEAR; URINE BILIRUBIN NEGATIVE (<2.0 mg/dL); URINE COLOR STRAW; URINE GLUCOSE (UA) NEGATIVE (NEGATIVE); URINE KETONE NEGATIVE (NEGATIVE); URINE LEUK ESTERASE NEGATIVE (NEGATIVE); URINE NITRITE NEGATIVE (NEGATIVE); URINE PROTEIN NEGATIVE (NEGATIVE); URINE UROBILINOGEN NEGATIVE mg/dL (0.2-1.0)
[2017-11-24 06:27] LABS: HEMATOCRIT 21.5 % (35.4-49); HEMOGLOBIN 7.5 GM/dL (11.7-16.9); MCH 31.9 pg (25.7-33.7); MEAN PLT VOLUME 8.4 fl (7.5-11.1); PLATELET COUNT 59 K/MM3 (134-434); RBC 2.36 M/mm3 (4.00-5.60); RDW 16.2 % (11.9-15.9); WHITE BLOOD COUNT 5.6 K/mm3 (4.0-10.0)
[2017-11-24 06:43] LABS: INR 2.76 (0.82-1.09); PROTHROMBIN TIME (PATIENT) 31.2 SEC (9.7-13.0)
[2017-11-24 06:49] LABS: ALBUMIN 4.2 g/dl (3.4-5.0); ANION GAP 12 (8-16); BLOOD UREA NITROGEN 26 mg/dL (7-18); CALCIUM 9.1 mg/dL (8.5-10.1); CHLORIDE 102 mmol/L (98-107); CO2 25 mmol/L (21-32); GLUCOSE,RANDOM 97 mg/dL (74-106); MAGNESIUM 2.1 mg/dL (1.8-2.4); PHOSPHOROUS 2.7 mg/dL (2.5-4.9); POTASSIUM 4.3 mmol/L (3.5-5.1); SGOT/AST 65 U/L (15-37); SODIUM 139 mmol/L (136-145)
[2017-11-24 06:52] LABS: ALK PHOS 72 U/L (45-117); BILIRUBIN,TOTAL 7.4 mg/dL (0.2-1.0); CREATININE 1.8 mg/dL (0.7-1.3); SGPT/ALT 6 U/L (12-78); TOT PROT 7.8 g/dl (6.4-8.2)
[2017-11-24] MEDS ORDERED: GABAPENTIN 100 MG CAPSULE (FP) ONE (06:58)
[2017-11-24] MEDS: GABAPENTIN 300 MG CAPSULE (FP) PO SCH ×4 (07:01→23:59)
[2017-11-24] MEDS ORDERED: SPIRONOLACTONE 25 MG TABLET (FP) PO SCH (10:00)
[2017-11-24] MEDS: PANTOPRAZOLE 40 MG TABLET (FP) PO SCH (10:17)
[2017-11-24] MEDS: FUROSEMIDE 40 MG TABLET (FP) PO SCH (10:18)
[2017-11-24] MEDS: FOLIC ACID 1 MG TABLET (FP) PO SCH (10:18)
--- NOTE | 2017-11-24 10:28 | CON.GI ---
Consult Consult Specialty:: GI Reason for Consultation:: Encephalopathy - History of Present Illness History of Present Illness: chart reviewed, events noted. Seen earlier this month for abdominal wall cellulitis. Per initial intake: decompensated alcoholic liver cirrhosis presents to the ER due to "confusion". He is alert and fully oriented, but as per , the patient has been increasingly more talkative. She also notes increasing jaundice , abdominal distension, diarrhea, and bleeding around the mouth and PICC site. She called liver specialists at [facility] who advised her to bring him to ER. Denies CP, SOB, fevers, chills, abd pain. He was admitted her this month for sepsis 2/2 abdominal cellulitis and MSSA bacteremia. Due to his complex liver pathology, he was transferred to [facility] for HLOC. There, he underwent a paracentesis, negative for SBP. They inserted PICC line, complicated by dislodgement and bleeding post-procedure requiring multiple blood products to correct anemia and elevated INR. The line was replaced, and he was placed on 4 wks of Cefazolin Q6H (to be completed December 02 ) Abd U/s showed moderate ascites, cholelithiasis. MELD 33-31 Transfused PRBC and FFP while in ED for bleeding oral mucous membrains. At the time of this encounter the patient is awake, alert and oriented. NAD. Icteric. Astirexix present. Reports loose stools, but no melena, hematochezia, or hematemesis. Reports dry mouth and poor sleep. No early satiety. Picc line in r. arm with dry bloody dressing w/o obvious active bleeding. Soft, non- distended abdomen with fluid shift. 3+ BLLE edema with stasis. Afebrile with Tmax 98.8. Systolic BP >120, HR <100. Was taking Lasix, lactulose, rifaximine, PPI, thiamine at home. - History Source History Provided By: Patient, Medical Record - Past Medical History Cardio/Vascular: Yes: HTN Gastrointestinal: Yes: Ascites Hepatobiliary: Yes: Cirrhosis (Alcohol induced, decompensated), Other (History of severe alcoholic hepatitis, hepatic encephalopathy) Psych: Yes: Depression Musculoskeletal: Yes: Other (Cellulitis and tenosynovitis +/- osteomyelitis 3rd/ 4th digit of left hand) Dermatology: Yes: Cellulitis (of LE and of hand), Psoriasis - Alcohol/Substance Use Hx Alcohol Use: Yes (quit since last June, prior was a chronic abuser) History of Substance Use: reports: None - Smoking History Smoking history: Never smoked Have you smoked in the past 12 months: No - Social History Usual Living Arrangement: With Significant Other (two teenage daughters) ADL: Independent Occupation: disabled History of Recent Travel: No Home Medications - Allergies Allergies/Adverse Reactions: Allergies Allergy/AdvReac Type Severity Reaction Status Date / Time No Known Allergies Allergy Verified 11/23/17 18:32 - Home Medications Home Medications: Ambulatory Orders Folic Acid - 1 mg PO DAILY #30 tablet 06/23/17 Cyanocobalamin [Vitamin B12 -] 100 mcg PO DAILY #30 tablet 07/28/17 Furosemide [Lasix -] 40 mg PO DAILY #30 tablet 07/28/17 Pantoprazole Sodium [Protonix -] 40 mg PO DAILY #30 tablet.ec 07/28/17 Thiamine HCl [Vitamin B1] 100 mg PO DAILY #30 tablet 07/28/17 Gabapentin 300 mg PO QID #120 capsule MDD 4 08/12/17 Rifaximin [Xifaxan -] 550 mg PO BID #60 tablet MDD 2 08/12/17 Sertraline HCl [Zoloft -] 25 mg PO DAILY #30 tablet MDD 1 08/12/17 Lactulose (Oral Use) [Cephulac -] 35 gm PO QID 11/03/17 oxyCODONE HCL [Roxicodone -] 5 mg PO TID PRN MDD 3 11/03/17 Hydroxyzine HCl 50 mg PO QID 11/23/17 Magnesium 500 mg PO BID 11/23/17 Nystatin Oral Suspension - [Nystatin Oral Susp 512194 Units/5 ML -] 100,000 units PO QID 11/23/17 Family Disease History - Family Disease History Family History: Unremarkable Family Disease History: Other: Grandparent Review of Systems Findings/Remarks: as per HPI Physical Exam-GI Vital Signs: Vital Signs Temperature 98.4 F 11/24/17 07:14 Pulse Rate 89 11/24/17 07:14 Respiratory Rate 18 11/24/17 07:14 Blood Pressure 128/67 11/24/17 07:14 O2 Sat by Pulse Oximetry (%) 97 11/24/17 06:55 Constitutional: Yes: Calm Eyes: Yes: Sclera Icterus HENT: Yes: Other (dry mucous membraines) Neck: Yes: Supple Cardiovascular: Yes: Regular Rate and Rhythm. No: Bradycardia, Tachycardia Respiratory: Yes: Regular. No: Accessory Muscle Use, Orthopnea, Rales, Wheezes Gastrointestinal Inspection: Yes: Ascites. No: Distention ...Auscultate: Yes: Normoactive Bowel Sounds ...Palpate: Yes: Soft. No: Firm/Rigid, Guarding, Mass ...Percussion: Yes: Fluid Wave Neurological: Yes: Alert, Oriented, Asterixis. No: Confusion, Lethargy Labs: CBC, BMP 11/24/17 06:08 11/24/17 06:08 INR, PTT INR 2.76 (0.82-1.09) H 11/24/17 06:08 Laboratory Last Values WBC 5.6 K/mm3 (4.0-10.0) 11/24/17 06:08 RBC 2.36 M/mm3 (4.00-5.60) L 11/24/17 06:08 Hgb 7.5 GM/dL (11.7-16.9) L 11/24/17 06:08 Hct 21.5 % (35.4-49) L 11/24/17 06:08 MCV 91.0 fl (80-96) 11/24/17 06:08 MCH 31.9 pg (25.7-33.7) 11/24/17 06:08 MCHC 35.0 g/dl (32.0-35.9) 11/24/17 06:08 RDW 16.2 % (11.9-15.9) H 11/24/17 06:08 Plt Count 59 K/MM3 (134-434) L 11/24/17 06:08 MPV 8.4 fl (7.5-11.1) 11/24/17 06:08 Neutrophils % 68.0 % (42.8-82.8) 11/23/17 20:38 Lymphocytes % 19.7 % (8-40) D 11/23/17 20:38 Monocytes % 8.6 % (3.8-10.2) 11/23/17 20:38 Eosinophils % 3.2 % (0-4.5) 11/23/17 20:38 Basophils % 0.5 % (0-2.0) 11/23/17 20:38 PT with INR 31.20 SEC (9.7-13.0) H 11/24/17 06:08 INR 2.76 (0.82-1.09) H 11/24/17 06:08 Sodium 139 mmol/L (136-145) 11/24/17 06:08 Potassium 4.3 mmol/L (3.5-5.1) 11/24/17 06:08 Chloride 102 mmol/L (98-107) 11/24/17 06:08 Carbon Dioxide 25 mmol/L (21-32) 11/24/17 06:08 Anion Gap 12 (8-16) 11/24/17 06:08 BUN 26 mg/dL (7-18) H 11/24/17 06:08 Creatinine 1.8 mg/dL (0.7-1.3) H 11/24/17 06:08 Creat Clearance w eGFR 39.52 (>60) 11/24/17 06:08 Random Glucose 97 mg/dL (74-106) 11/24/17 06:08 Calcium 9.1 mg/dL (8.5-10.1) 11/24/17 06:08 Phosphorus 2.7 mg/dL (2.5-4.9) D 11/24/17 06:08 Magnesium 2.1 mg/dL (1.8-2.4) 11/24/17 06:08 Ferritin 2868.722 ng/ml (16.4-293.9) H 11/24/17 06:08 Total Bilirubin 7.4 mg/dL (0.2-1.0) H 11/24/17 06:08 Direct Bilirubin 2.3 mg/dL (0.0-0.2) H 11/23/17 23:40 AST 65 U/L (15-37) H 11/24/17 06:08 ALT 6 U/L (12-78) L 11/24/17 06:08 Alkaline Phosphatase 72 U/L (45-117) 11/24/17 06:08 Ammonia < 10.0 umol/L (11-32) L 11/23/17 20:32 Creatine Kinase 24 IU/L (39-308) L 11/23/17 20:38 Troponin I 0.03 ng/ml (0.00-0.05) D 11/23/17 20:38 B-Natriuretic Peptide 7258.68 pg/ml (5-125) H 11/23/17 20:38 Total Protein 7.8 g/dl (6.4-8.2) 11/24/17 06:08 Albumin 4.2 g/dl (3.4-5.0) 11/24/17 06:08 Lipase 85 U/L (73-393) 11/23/17 20:38 Urine Color Straw 11/24/17 00:50 Urine Appearance Clear 11/24/17 00:50 Urine pH 7.0 (5.0-8.0) D 11/24/17 00:50 Ur Specific Darling 1.004 (1.001-1.035) 11/24/17 00:50 Urine Protein Negative (NEGATIVE) 11/24/17 00:50 Urine Glucose (UA) Negative (NEGATIVE) 11/24/17 00:50 Urine Ketones Negative (NEGATIVE) 11/24/17 00:50 Urine Blood Negative (NEGATIVE) 11/24/17 00:50 Urine Nitrite Negative (NEGATIVE) 11/24/17 00:50 Urine Bilirubin Negative (<2.0 mg/dL) 11/24/17 00:50 Urine Urobilinogen Negative mg/dL (0.2-1.0) 11/24/17 00:50 Ur Leukocyte Esterase Negative (NEGATIVE) 11/24/17 00:50 Acetone, Qual Negative (NEGATIVE) 11/23/17 20:38 Blood Type O POSITIVE 11/23/17 20:38 Antibody Screen Negative 11/23/17 20:38 Crossmatch See Detail 11/23/17 20:38 Imaging - Results Cat Scan: Report Reviewed (head) Ultrasound: Report Reviewed Problem List - Problems (1) Encephalopathy Code(s): G93.40 - ENCEPHALOPATHY, UNSPECIFIED (2) Ascites due to alcoholic cirrhosis Code(s): K70.31 - ALCOHOLIC CIRRHOSIS OF LIVER WITH ASCITES (3) Liver cirrhosis Code(s): K74.60 - UNSPECIFIED CIRRHOSIS OF LIVER (4) Alcoholic cirrhosis Code(s): K70.30 - ALCOHOLIC CIRRHOSIS OF LIVER WITHOUT ASCITES Qualifiers: Ascites presence: with ascites Qualified Code(s): K70.31 - Alcoholic cirrhosis of liver with ascites Assessment/Plan MELD 31 HRS Admitted with Picc line - Abx until December 02 No SBP suspected at this time Non-tens ascites Nephrology consultation re ?fluid challenge and ?add aldactone Octreotide and midodrine Continue with lactulose and rifaximine Daily MELD/labs If MELD climbing, transfer to [facility] liver service
--- NOTE | 2017-11-24 11:15 | PN ---
Progress Note, Physician Chief Complaint: AWAKE ALERT ABLE TO COMMUNICATE CLEARLY DENIES CHEST PAIN OR SOB - Current Medication List Current Medications: Active Medications Cyanocobalamin (Vitamin B12 -) 100 mcg PO DAILY [facility] Folic Acid (Folic Acid -) 1 mg PO DAILY [facility] Last Admin: 11/24/17 10:18 Dose: 1 mg Furosemide (Lasix -) 40 mg PO DAILY [facility] Last Admin: 11/24/17 10:18 Dose: 40 mg Gabapentin (Neurontin -) 300 mg PO Q6HPO [facility] Last Admin: 11/24/17 07:01 Dose: 300 mg Hydroxyzine HCl (Atarax -) 50 mg PO Q6H PRN PRN Reason: ITCHING Pantoprazole Sodium (Protonix -) 40 mg PO DAILY [facility] Last Admin: 11/24/17 10:17 Dose: 40 mg Rifaximin (Xifaxan -) 550 mg PO BID [facility] Thiamine HCl (Vitamin B1 -) 100 mg PO DAILY [facility] - Objective Vital Signs: Vital Signs Temperature 98.4 F 11/24/17 07:14 Pulse Rate 89 11/24/17 07:14 Respiratory Rate 18 11/24/17 07:14 Blood Pressure 128/67 11/24/17 07:14 O2 Sat by Pulse Oximetry (%) 97 11/24/17 06:55 Constitutional: Yes: Mild Distress Eyes: Yes: WNL HENT: Yes: Epistaxis Neck: Yes: WNL Cardiovascular: Yes: WNL Respiratory: Yes: WNL Gastrointestinal: Yes: Ascites, Distention Genitourinary: Yes: WNL Musculoskeletal: Yes: Muscle Weakness Extremities: Yes: Erythema, Other Edema: Yes Peripheral Pulses WNL: Yes Integumentary: Yes: Erythema, Rash, Other Wound/Incision: Yes: Dressing Dry and Intact Neurological: Yes: Pre-Existing Deficit, Weakness ...Motor Strength: LLE, RLE Psychiatric: Yes: Other Labs: CBC, BMP 11/24/17 06:08 11/24/17 06:08 INR, PTT INR 2.76 (0.82-1.09) H 11/24/17 06:08 Problem List - Problems (1) Anemia Code(s): D64.9 - ANEMIA, UNSPECIFIED Qualifiers: (2) Ascites due to alcoholic cirrhosis Code(s): K70.31 - ALCOHOLIC CIRRHOSIS OF LIVER WITH ASCITES (3) CHF (congestive heart failure) Code(s): I50.9 - HEART FAILURE, UNSPECIFIED (4) Encephalopathy Code(s): G93.40 - ENCEPHALOPATHY, UNSPECIFIED (5) Liver cirrhosis Code(s): K74.60 - UNSPECIFIED CIRRHOSIS OF LIVER (6) Acute kidney injury Code(s): N17.9 - ACUTE KIDNEY FAILURE, UNSPECIFIED (7) Alcohol abuse Code(s): F10.10 - ALCOHOL ABUSE, UNCOMPLICATED (8) Alcohol dependence with uncomplicated withdrawal Code(s): F10.230 - ALCOHOL DEPENDENCE WITH WITHDRAWAL, UNCOMPLICATED (9) Alcoholic cirrhosis Code(s): K70.30 - ALCOHOLIC CIRRHOSIS OF LIVER WITHOUT ASCITES Qualifiers: Ascites presence: with ascites Qualified Code(s): K70.31 - Alcoholic cirrhosis of liver with ascites (10) Bleeding Code(s): R58 - HEMORRHAGE, NOT ELSEWHERE CLASSIFIED (11) Cellulitis Code(s): L03.90 - CELLULITIS, UNSPECIFIED Qualifiers: Site of cellulitis: other site Qualified Code(s): L03.818 - Cellulitis of other sites (12) Stomatitis and mucositis Code(s): K12.1 - OTHER FORMS OF STOMATITIS; K12.30 - ORAL MUCOSITIS (ULCERATIVE) , UNSPECIFIED (13) Epistaxis not due to trauma Code(s): R04.0 - EPISTAXIS Assessment/Plan THROMBOCYTOPENIA ACTIVE BLEEDS WITH STOMATITIS AND LIVER CIRRHOSIS WILL NEED TRANSFUSIONS HEME/ONC AND GI CONSULTS NPO CHECK LABS
--- NOTE | 2017-11-24 12:07 | EKG ---
Test Reason : Blood Pressure : / mmHG Vent. Rate : 086 BPM Atrial Rate : 086 BPM P-R Int : 154 ms QRS Dur : 092 ms QT Int : 420 ms P-R-T Axes : 055 016 032 degrees QTc Int : 502 ms NORMAL SINUS RHYTHM PROLONGED QT ABNORMAL ECG WHEN COMPARED WITH ECG OF 03-NOV-2017 10:38, NO SIGNIFICANT CHANGE WAS FOUND Confirmed by SYDNEE MCKNIGHT MD ([id number]) on 11/24/2017 12:07:25 PM Referred By: Confirmed By:SYDNEE MCKNIGHT MD
[2017-11-24] MEDS: RIFAXIMIN 550 MG TABLET (UD) PO SCH ×2 (12:21→22:08)
[2017-11-24] MEDS: THIAMINE HCL 100 MG TABLET (FP) PO SCH (12:21)
[2017-11-24] MEDS: CYANOCOBALAMIN (VITAMIN B-12) 100 MCG TABLET PO SCH (12:21)
[2017-11-24] MEDS: ALBUMIN HUMAN 25% 12.5 GM/50 ML VIAL IVPB SCH ×3 (14:53→23:59)
[2017-11-24] MEDS: MAG HYDROX/ALH/SMC/DPHA/LIDO 240 ML MOUTHWASH MM SCH ×3 (16:20→23:58)
--- NOTE | 2017-11-24 16:39 | PN ---
Progress Note (short form) - Note Progress Note: Consult dictated Problems Anemia- Blood loss, chronic disease,? component of hypersplenism Coagulopathy-- secondary to liver disease, antibiotics, lack of p.o. intake Thrombocytopenia-- portal hypertension and liver disease with hypersplenism Mouth ulcerations- ?? thrush Inguinal moniliasis Diarrhea- on lactulose which will need be discontinued initially or dose lowered; r/o c. difficile enteritis Hepatic encephalopathy- currently alert awake, communicative- need to titrate lactulose MSSA sepsis- need to continue with antibiotics per ID Ascites Alcoholic liver disease, portal hypertension,hypersplenism Plan:: Vitamin K Stool for C.difficile, guaic transfusion of packed cells FFP
[2017-11-24] MEDS ORDERED: oxyCODONE HCL 5 MG TABLET ONE (16:48)
--- NOTE | 2017-11-24 16:48 | PN ---
Progress Note (short form) - Note Progress Note: Have discontinued DVT prophylaxis in view of bleeding, coagulopathy, thrombocytopenia.
[2017-11-24] MEDS: oxyCODONE HCL 5 MG TABLET PO PRN (16:49)
[2017-11-24] MEDS ORDERED: PHYTONADIONE 10 MG/1 ML AMP IVPB ONE (17:00)
[2017-11-24] MEDS ORDERED: PHYTONADIONE 10 MG/1 ML AMP ONE (17:06)
--- NOTE | 2017-11-24 18:00 | CONS ---
DATE OF CONSULTATION: 11/24/2017 HISTORY OF PRESENT ILLNESS: The patient is seen in the emergency room at the request of Dr. Martínez. This is a 52-year-old male with history of alcoholic liver disease and cirrhosis. He presented to the emergency room with increasing jaundice, increasing ascites, and progressive diarrhea. He has had bleeding at a PICC site which was inserted at [facility] approximately 10 days earlier for treatment of a staph septicemia secondary to an abdominal wall cellulitis. The patient's history includes that of being admitted to [facility] with staph sepsis secondary to abdominal cellulitis with MSSA bacteremia. Patient had a paracentesis approximately 10 days earlier at [facility]. At that time, a PICC was inserted. There was apparently post procedure complications, and the patient required multiple blood transfusions. The patient does have a coagulopathy with elevation of INR as well as thrombocytopenia secondary to portal hypertension, and liver disease. The states that the patient has a little area of cut adjacent to the PICC line insertion. The patient has been on cephazolin q.6 h. at home. Recent evaluation revealed ascites and cholelithiasis. REVIEW OF SYSTEMS: The patient denies headaches, denies diplopia, has epistaxis. No dysphagia, odynophagia. No shortness of breath. No chest pain, abdominal distention, abdominal bloating, severe diarrhea. No melena. No dysuria. No hematuria. Chronic back pain. Lower extremity edema. PAST MEDICAL HISTORY: Includes hypertension, alcoholic cirrhosis. Ascites. Recent abdominal wall cellulitis. Recent sepsis secondary to MSSA. History of osteomyelitis of the 3rd and 4th digits. Patient is a nonsmoker. Past alcohol abuse. Apparently patient has abstained since June. Patient is , lives with his . No occupational exposures. There are no known allergies. MEDICATION: Medicines include folic acid 1 mg daily, vitamin B12 100 mcg daily, Lasix 40 daily, Protonix 40 daily, thiamine B1 100 daily, gabapentin 300 q.i.d., rifaximin 550 b.i.d., Zoloft 25 daily, lactulose 30 t.i.d., oxycodone 5 t.i.d. p.r.n., magnesium 500 b.i.d., hydroxyzine 50 q.i.d., nystatin. CURRENT PHYSICAL EXAMINATION: Vital signs: Blood pressure 142/79, pulse 86, temperature 98.3, respiratory rate 18. HEENT: ALAN, EOM intact. The patient is icteric. There are ulcerations and appear to be likely thrush in the oral cavity in the buccal areas. No thyromegaly. There is decreased breath sounds bilaterally at the bases. There is bilateral gynecomastia. Cardiac: Regular rhythm with systolic murmur. Abdomen: With ascites. Genitourinary: Testes descended, uncircumcised male. Extremities: 4+ lower extremity edema with stasis changes. LABORATORY: WBC 5.6, hemoglobin 7.5, hematocrit 21.5, platelets 59,000, 68 polycytes, 20 lymphocytes, 9 monocytes, 3 eosinophils. Chemistry is 139 sodium , potassium 4.3 chloride 102, CO2 of 25, creatinine 1.8, calcium 9.1, phosphorus , ferritin 2868, bilirubin 7.4, AST 65, ALT 60, alkaline phosphatase 72, ammonia less than 10, protein 7.8, albumin 4.2. Urine negative. Acetone negative. Abdominal ultrasound small right pleural effusion, moderate ascites. Liver findings consistent with cirrhosis, including splenomegaly, cholelithiasis. Head CT no contrast. No acute intracranial pathology. IMPRESSION: This is a 52-year-old with alcoholic cirrhosis, decompensated liver disease, has had a history of coagulopathy, thrombocytopenia secondary to liver disease, hypersplenism, portal hypertension. He recently had methicillin sensitive Staphylococcus aureus sepsis from abdominal cellulitis. A peripherally inserted central catheter line was placed associated with increased bleeding. Current hematocrit is 21% with evidence of coagulopathy. INR is 2.76, PT is 31.2. Platelet count is 59,000. Hematocrit is 21%. PROBLEMS: 1. Anemia, likely secondary to bleeding, liver disease. 2. Thrombocytopenia secondary to portal hypertension, hypersplenism, coagulopathy secondary to underlying liver disease. 3. Recent sepsis with methicillin sensitive Staphylococcus aureus. Patient has been on cephazolin which is adding to likely his coagulopathy. Patient will receive IV vitamin K, fresh frozen plasma, transfusion of packed cells. He will need stool for C. difficile, and he will need decrease in lactulose in view of his bouts of diarrhea. Serum ammonia level can be monitored as lactulose is diminished or stopped. Thanking you. ERIK BUTT M.D. MARGA/[id number]
--- NOTE | 2017-11-24 18:02 | CONSULT ---
Consult - text type - Consultation Consultation Note: Renal Consult for PATRICIA/CKD This is a 52 year old gentleman well known to our service with PMhx of Alcoholic liver cirrhosis with Hx of Hepto-renal syndrome s/p recent admission at [facility] for Ascities/SBP/Catheter associated bacteremia now presents with AMS as per medical record with Cr of 1.8. s/p Hospital discharge last Wednesday. Was on IV Abx at home for gram positive bacteremia. Reports bleeding around his PICC line and from the mouth. Denies any abd pain, N/V/D. Making urine. No SOB or chest pain. No fever, chills. PMhx: as above Allergies: NKDA Family Hx: NC Social Hx: No recent ETOh use ROS: as per HPI Home Medications Medication Instructions Recorded Folic Acid - 1 mg PO DAILY #30 tablet 06/23/17 Cyanocobalamin [Vitamin B12 -] 100 mcg PO DAILY #30 tablet 07/28/17 Furosemide [Lasix -] 40 mg PO DAILY #30 tablet 07/28/17 Pantoprazole Sodium [Protonix -] 40 mg PO DAILY #30 tablet.ec 07/28/17 Thiamine HCl [Vitamin B1] 100 mg PO DAILY #30 tablet 07/28/17 Gabapentin 300 mg PO QID #120 capsule MDD 4 08/12/17 Rifaximin [Xifaxan -] 550 mg PO BID #60 tablet MDD 2 08/12/17 Sertraline HCl [Zoloft -] 25 mg PO DAILY #30 tablet MDD 1 08/12/17 Lactulose (Oral Use) [Cephulac -] 35 gm PO QID 11/03/17 oxyCODONE HCL [Roxicodone -] 5 mg PO TID PRN MDD 3 11/03/17 Hydroxyzine HCl 50 mg PO QID 11/23/17 Magnesium 500 mg PO BID 11/23/17 Nystatin Oral Suspension - 100,000 units PO QID 11/23/17 [Nystatin Oral Susp 451637 Units/5 ML -] Vital Signs Temperature 98.3 F 11/24/17 10:00 Pulse Rate 85 11/24/17 16:57 Respiratory Rate 18 11/24/17 16:57 Blood Pressure 127/69 11/24/17 16:57 O2 Sat by Pulse Oximetry (%) 94 L 11/24/17 16:57 Intake & Output 11/21/17 11/22/17 11/23/17 11/24/17 23:59 23:59 23:59 23:59 Weight 88.451 kg 88.451 kg NAD, awake and alert dry blood around the mouth no JVD, neck supple RRR, No M/R CTA Obese, + ascities, no tenderness Trace sacral edema, 1+ LE edema No bladder distension CBC, BMP 11/24/17 06:08 11/24/17 06:08 Current Medications Albumin Human (Albumin Human 25%) 25 gm IVPB Q6H [facility] Stop: 11/25/17 07:01 Last Admin: 11/24/17 14:53 Dose: 25 gm Cyanocobalamin (Vitamin B12 -) 100 mcg PO DAILY [facility] Last Admin: 11/24/17 12:21 Dose: 100 mcg Folic Acid (Folic Acid -) 1 mg PO DAILY [facility] Last Admin: 11/24/17 10:18 Dose: 1 mg Furosemide (Lasix -) 40 mg PO DAILY [facility] Last Admin: 11/24/17 10:18 Dose: 40 mg Gabapentin (Neurontin -) 300 mg PO Q6HPO [facility] Last Admin: 11/24/17 12:21 Dose: 300 mg Hydroxyzine HCl (Atarax -) 50 mg PO Q6H PRN PRN Reason: ITCHING Lidocaine/Aluminum/Magnesium/Simeth (Magic Mouthwash *Sjr Formula* -) 5 ml MM Q6HPO [facility] Last Admin: 11/24/17 16:20 Dose: 5 ml Oxycodone HCl (Roxicodone -) 5 mg PO Q8H PRN PRN Reason: PAIN LEVEL 6-10 Last Admin: 11/24/17 16:49 Dose: 5 mg Pantoprazole Sodium (Protonix -) 40 mg PO DAILY [facility] Last Admin: 11/24/17 10:17 Dose: 40 mg Rifaximin (Xifaxan -) 550 mg PO BID [facility] Last Admin: 11/24/17 12:21 Dose: 550 mg Thiamine HCl (Vitamin B1 -) 100 mg PO DAILY [facility] Last Admin: 11/24/17 12:21 Dose: 100 mg 52 year old gentleman with PMhx of Alcoholic liver cirrhosis with Hx of Hepto- renal syndrome s/p recent admission at [facility] for Ascities/SBP/Catheter associated bacteremia now presents with AMS as per medical record with Cr of 1.8. #PATRICIA in setting of Liver failure secondary to intravascular volume depletion vs. HRS #Alcoholic Liver cirrhosis #coagulopathy in setting of liver disease #Acute on chronic anemia #Thrombocytopenia Pt with peripheral edema but no evidence of pulmonary congestion to warrant acute diureiss and pt with signs of mild intravascular volume depletion will start Albumin Q6h for volume expansion as pt will likely 3rd space saline Trend renal function and electrolytes daily check urine studies no indication for renal imaging at this time at this time there is no indication for PROCESS TREATER Cr upon discharge from [facility] was 1.7 so unlikely to see marked improvement with volume expansion at some point will need to resume diuretics to prevent overt edema, ascities Transfuse as per PMD/Heme GI follow up Prognosis is poor
--- NOTE | 2017-11-24 18:25 | PN ---
Progress Note, Physician Chief Complaint: Weakness Chronic liver cirrhosis hepato-renal syndrome - Current Medication List Current Medications: Active Medications Albumin Human (Albumin Human 25%) 25 gm IVPB Q6H [facility] Stop: 11/25/17 07:01 Last Admin: 11/24/17 14:53 Dose: 25 gm Cyanocobalamin (Vitamin B12 -) 100 mcg PO DAILY [facility] Last Admin: 11/24/17 12:21 Dose: 100 mcg Folic Acid (Folic Acid -) 1 mg PO DAILY [facility] Last Admin: 11/24/17 10:18 Dose: 1 mg Furosemide (Lasix -) 40 mg PO DAILY [facility] Last Admin: 11/24/17 10:18 Dose: 40 mg Gabapentin (Neurontin -) 300 mg PO Q6HPO [facility] Last Admin: 11/24/17 12:21 Dose: 300 mg Hydroxyzine HCl (Atarax -) 50 mg PO Q6H PRN PRN Reason: ITCHING Cefazolin Sodium 2 gm/ (Dextrose) 50 mls @ 100 mls/hr IVPB BID [facility] Lidocaine/Aluminum/Magnesium/Simeth (Magic Mouthwash *Sjr Formula* -) 5 ml MM Q6HPO [facility] Last Admin: 11/24/17 16:20 Dose: 5 ml Oxycodone HCl (Roxicodone -) 5 mg PO Q8H PRN PRN Reason: PAIN LEVEL 6-10 Last Admin: 11/24/17 16:49 Dose: 5 mg Pantoprazole Sodium (Protonix -) 40 mg PO DAILY [facility] Last Admin: 11/24/17 10:17 Dose: 40 mg Rifaximin (Xifaxan -) 550 mg PO BID [facility] Last Admin: 11/24/17 12:21 Dose: 550 mg Thiamine HCl (Vitamin B1 -) 100 mg PO DAILY [facility] Last Admin: 11/24/17 12:21 Dose: 100 mg - Objective Vital Signs: Vital Signs Temperature 98.3 F 11/24/17 10:00 Pulse Rate 85 11/24/17 16:57 Respiratory Rate 18 11/24/17 16:57 Blood Pressure 127/69 11/24/17 16:57 O2 Sat by Pulse Oximetry (%) 94 L 11/24/17 16:57 Constitutional: Yes: Well Nourished, No Distress, Calm Eyes: Yes: Other (ictiric) Cardiovascular: Yes: Regular Rate and Rhythm Respiratory: Yes: Regular Gastrointestinal: Yes: Normal Bowel Sounds, Soft, Ascites Musculoskeletal: Yes: Muscle Weakness Extremities: Yes: Other (jaundiced) Edema: Yes Edema: LLE: 2+, RLE: 2+ Peripheral Pulses WNL: Yes Peripheral Pulses: Left Doralis Pedis: 2+, Right Dorsalis Pedis: 2+ Integumentary: Yes: Rash (generalized psoriatic rash) Wound/Incision: Yes: Bleeding (Around Right Upper arm PICC) Neurological: Yes: Alert, Oriented Psychiatric: Yes: Alert, Oriented Labs: CBC, BMP 11/24/17 06:08 11/24/17 06:08 INR, PTT INR 2.76 (0.82-1.09) H 11/24/17 06:08 Problem List - Problems (1) Anemia Assessment/Plan: -receieved 1 unit PRBC -Hematology consult -monitor trend -reverse INR if higher than 3.0 Code(s): D64.9 - ANEMIA, UNSPECIFIED Qualifiers: (2) Ascites due to alcoholic cirrhosis Assessment/Plan: -seen by nephrology and GI -albumin -furosemide PRN Code(s): K70.31 - ALCOHOLIC CIRRHOSIS OF LIVER WITH ASCITES (3) CHF (congestive heart failure) Assessment/Plan: -furosemide PRN -I&O -daily weights -CXR reviewed Code(s): I50.9 - HEART FAILURE, UNSPECIFIED (4) Liver cirrhosis Assessment/Plan: -GI consult -was seen by Dr Barajas when at [facility] Code(s): K74.60 - UNSPECIFIED CIRRHOSIS OF LIVER (5) Acute kidney injury Code(s): N17.9 - ACUTE KIDNEY FAILURE, UNSPECIFIED (6) Hepatorenal syndrome Code(s): K76.7 - HEPATORENAL SYNDROME (7) Sepsis Assessment/Plan: -Continu IV abx, as he was getting at home -Cefazolin 2 g BID -ID consult -UC/BC pending Code(s): A41.9 - SEPSIS, UNSPECIFIED ORGANISM Assessment/Plan see problem list
[2017-11-24] MEDS: CEFAZOLIN 2 GM/D5W 2 GM/50 ML ML IVPB SCH (22:08)
[2017-11-25] MEDS: MAG HYDROX/ALH/SMC/DPHA/LIDO 240 ML MOUTHWASH MM SCH ×4 (05:55→23:12)
[2017-11-25] MEDS: GABAPENTIN 300 MG CAPSULE (FP) PO SCH ×4 (05:55→23:12)
[2017-11-25] MEDS: ALBUMIN HUMAN 25% 12.5 GM/50 ML VIAL IVPB SCH (06:01)
[2017-11-25] MEDS: oxyCODONE HCL 5 MG TABLET PO PRN ×2 (06:02→16:58)
[2017-11-25 06:08] LABS: SERUM IRON SATURATION > 87 % (15-55); TOTAL IRON BINDING CAPACITY < 128 ug/dL (250-450); UIBC < 17 ug/dL (111-343)
[2017-11-25 07:15] LABS: HEMOGLOBIN 7.1 GM/dL (11.7-16.9); MCHC 35.3 g/dl (32.0-35.9); MEAN CELL VOLUME 90.7 fl (80-96); MEAN PLT VOLUME 8.2 fl (7.5-11.1); PLATELET COUNT 53 K/MM3 (134-434); RBC 2.21 M/mm3 (4.00-5.60); RDW 17.3 % (11.9-15.9); WHITE BLOOD COUNT 4.8 K/mm3 (4.0-10.0)
--- NOTE | 2017-11-25 07:16 | PN ---
Progress Note, Physician Chief Complaint: NEO Strauss known to our service as we had seen him at his early October 2017 admission for extensive cellulitis of the abd wall with bacteremia positive blood cultures November 04 for MSSA. He was quickly transferred to [facility] where is being considered by the liver servere for possible liver transplantation. He has been home receiving Cefazolin through a PICC line in his right arm Cefazolin 2 grs q 12 H given by his at home. Denies fever or abd complaints Cellulitis resolved now - Current Medication List Current Medications: Active Medications Cyanocobalamin (Vitamin B12 -) 100 mcg PO DAILY [facility] Last Admin: 11/24/17 12:21 Dose: 100 mcg Folic Acid (Folic Acid -) 1 mg PO DAILY [facility] Last Admin: 11/24/17 10:18 Dose: 1 mg Furosemide (Lasix -) 40 mg PO DAILY [facility] Last Admin: 11/24/17 10:18 Dose: 40 mg Gabapentin (Neurontin -) 300 mg PO Q6HPO [facility] Last Admin: 11/25/17 05:55 Dose: 300 mg Hydroxyzine HCl (Atarax -) 50 mg PO Q6H PRN PRN Reason: ITCHING Cefazolin Sodium/Dextrose (Ancef 2 Gm Premixed Ivpb -) 2 gm in 50 mls @ 100 mls /hr IVPB BID [facility] Last Admin: 11/24/17 22:08 Dose: 100 mls/hr Lidocaine/Aluminum/Magnesium/Simeth (Magic Mouthwash *Sjr Formula* -) 5 ml MM Q6HPO [facility] Last Admin: 11/25/17 05:55 Dose: 5 ml Oxycodone HCl (Roxicodone -) 5 mg PO Q8H PRN PRN Reason: PAIN LEVEL 6-10 Last Admin: 11/25/17 06:02 Dose: 5 mg Pantoprazole Sodium (Protonix -) 40 mg PO DAILY [facility] Last Admin: 11/24/17 10:17 Dose: 40 mg Rifaximin (Xifaxan -) 550 mg PO BID [facility] Last Admin: 11/24/17 22:08 Dose: 550 mg Thiamine HCl (Vitamin B1 -) 100 mg PO DAILY [facility] Last Admin: 11/24/17 12:21 Dose: 100 mg - Objective Vital Signs: Vital Signs Temperature 97.9 F 11/25/17 06:00 Pulse Rate 83 11/25/17 06:00 Respiratory Rate 20 11/25/17 06:00 Blood Pressure 127/77 11/25/17 06:00 O2 Sat by Pulse Oximetry (%) 96 11/24/17 21:00 Constitutional: Yes: Well Nourished, No Distress Eyes: Yes: Sclera Icterus HENT: Yes: WNL, Atraumatic Neck: Yes: WNL, Supple Cardiovascular: Yes: Regular Rate and Rhythm, S1, S2. No: Murmur Respiratory: Yes: WNL, Regular, CTA Bilaterally Gastrointestinal: Yes: WNL, Normal Bowel Sounds, Soft, Ascites, Other (no erythema). No: Tenderness Edema: Yes Labs: INR, PTT INR 2.76 (0.82-1.09) H 11/24/17 06:08 Problem List - Problems (1) MSSA bacteremia Code(s): R78.81 - BACTEREMIA (2) Liver cirrhosis Code(s): K74.60 - UNSPECIFIED CIRRHOSIS OF LIVER (3) Cellulitis Code(s): L03.90 - CELLULITIS, UNSPECIFIED Qualifiers: Site of cellulitis: other site Qualified Code(s): L03.818 - Cellulitis of other sites Assessment/Plan Microbiology 11/23/17 20:15 Blood - Peripheral Venous Blood Culture - Preliminary NO GROWTH OBTAINED AFTER 24 HOURS, INCUBATION TO CONTINUE FOR 4 DAYS. 11/23/17 20:15 Blood - Peripheral Venous Blood Culture - Preliminary NO GROWTH OBTAINED AFTER 24 HOURS, INCUBATION TO CONTINUE FOR 4 DAYS. Laboratory Tests 08/06/17 11/04/17 11/23/17 13:20 06:30 23:40 WBC Hgb Hct Plt Count INR BUN Creatinine Ferritin Direct Bilirubin 2.3 H AST ALT Alkaline Phosphatase C-Reactive Protein 3.0 H HIV 1&2 Antibody Screen Negative HIV P24 Antigen Negative 11/24/17 11/24/17 11/24/17 06:08 06:08 06:08 WBC 5.6 Hgb 7.5 L Hct 21.5 L Plt Count 59 L INR 2.76 H BUN 26 H Creatinine 1.8 H Ferritin Direct Bilirubin AST 65 H ALT 6 L Alkaline Phosphatase 72 C-Reactive Protein HIV 1&2 Antibody Screen HIV P24 Antigen 11/24/17 11/25/17 11/25/17 06:08 05:35 05:35 WBC Pending Hgb Pending Hct Pending Plt Count Pending INR BUN Pending Creatinine Pending Ferritin 2868.722 H Direct Bilirubin AST ALT Alkaline Phosphatase C-Reactive Protein HIV 1&2 Antibody Screen HIV P24 Antigen Assessment MSSA bacteremia November 04 at [facility] related to to severe cellulitis of the abd wall. ECHO negative here for vegetations. Immediate transfer to [facility] where PICC line inserted and ultimately sent home with Cefazolin 2 grs q 12 H for the duration I do not have the details at [facility] regarding whether he may have had persistent bacteremia at [facility]. NOt sure of their planned duration but total of 6 weeks would not be unreasonable. Would conform to [facility] recommendations in that regard. Bottom line antibiotic as ordered Vishal WOODWARD
[2017-11-25 07:21] LABS: ALBUMIN 4.3 g/dl (3.4-5.0); ANION GAP 8 (8-16); BILIRUBIN,TOTAL 7.4 mg/dL (0.2-1.0); BLOOD UREA NITROGEN 31 mg/dL (7-18); CHLORIDE 102 mmol/L (98-107); CO2 27 mmol/L (21-32); CREATININE 1.7 mg/dL (0.7-1.3); GLUCOSE,RANDOM 98 mg/dL (74-106); POTASSIUM 4.3 mmol/L (3.5-5.1); SGOT/AST 59 U/L (15-37); SGPT/ALT 6 U/L (12-78); SODIUM 137 mmol/L (136-145); TOT PROT 7.4 g/dl (6.4-8.2)
[2017-11-25 07:22] LABS: ALK PHOS 68 U/L (45-117)
[2017-11-25 07:24] LABS: INR 2.97 (0.82-1.09); PROTHROMBIN TIME (PATIENT) 33.6 SEC (9.7-13.0)
[2017-11-25] MEDS: THIAMINE HCL 100 MG TABLET (FP) PO SCH (09:19)
[2017-11-25] MEDS: CEFAZOLIN 2 GM/D5W 2 GM/50 ML ML IVPB SCH ×2 (09:19→21:06)
[2017-11-25] MEDS: RIFAXIMIN 550 MG TABLET (UD) PO SCH ×2 (09:19→21:06)
[2017-11-25] MEDS: FUROSEMIDE 40 MG TABLET (FP) PO SCH (09:19)
[2017-11-25] MEDS: PANTOPRAZOLE 40 MG TABLET (FP) PO SCH (09:19)
[2017-11-25] MEDS: CYANOCOBALAMIN (VITAMIN B-12) 100 MCG TABLET PO SCH (09:19)
[2017-11-25] MEDS: FOLIC ACID 1 MG TABLET (FP) PO SCH (09:19)
--- NOTE | 2017-11-25 10:33 | PN ---
Progress Note, Physician Chief Complaint: AWAKE C/O ABD PAIN SONO REVIEWED DENIES CP/SOB +BLOOD PER RECTUM - Current Medication List Current Medications: Active Medications Cyanocobalamin (Vitamin B12 -) 100 mcg PO DAILY [facility] Last Admin: 11/25/17 09:19 Dose: 100 mcg Folic Acid (Folic Acid -) 1 mg PO DAILY [facility] Last Admin: 11/25/17 09:19 Dose: 1 mg Furosemide (Lasix -) 40 mg PO DAILY [facility] Last Admin: 11/25/17 09:19 Dose: 40 mg Gabapentin (Neurontin -) 300 mg PO Q6HPO [facility] Last Admin: 11/25/17 05:55 Dose: 300 mg Hydroxyzine HCl (Atarax -) 50 mg PO Q6H PRN PRN Reason: ITCHING Cefazolin Sodium/Dextrose (Ancef 2 Gm Premixed Ivpb -) 2 gm in 50 mls @ 100 mls /hr IVPB BID [facility] Last Admin: 11/25/17 09:19 Dose: 100 mls/hr Lidocaine/Aluminum/Magnesium/Simeth (Magic Mouthwash *Sjr Formula* -) 5 ml MM Q6HPO [facility] Last Admin: 11/25/17 05:55 Dose: 5 ml Oxycodone HCl (Roxicodone -) 5 mg PO Q8H PRN PRN Reason: PAIN LEVEL 6-10 Last Admin: 11/25/17 06:02 Dose: 5 mg Pantoprazole Sodium (Protonix -) 40 mg PO DAILY [facility] Last Admin: 11/25/17 09:19 Dose: 40 mg Rifaximin (Xifaxan -) 550 mg PO BID [facility] Last Admin: 11/25/17 09:19 Dose: 550 mg Thiamine HCl (Vitamin B1 -) 100 mg PO DAILY [facility] Last Admin: 11/25/17 09:19 Dose: 100 mg - Objective Vital Signs: Vital Signs Temperature 98.4 F 11/25/17 09:03 Pulse Rate 85 11/25/17 09:03 Respiratory Rate 20 11/25/17 09:03 Blood Pressure 130/64 11/25/17 09:03 O2 Sat by Pulse Oximetry (%) 96 11/25/17 09:03 Constitutional: Yes: Mild Distress Eyes: Yes: WNL HENT: Yes: WNL Neck: Yes: WNL Cardiovascular: Yes: WNL Respiratory: Yes: WNL Gastrointestinal: Yes: Ascites, Tenderness Genitourinary: Yes: WNL Musculoskeletal: Yes: Muscle Weakness Extremities: Yes: Erythema Edema: No Peripheral Pulses WNL: Yes Integumentary: Yes: Venous Stasis Changes Wound/Incision: Yes: Clean/Dry Neurological: Yes: Pre-Existing Deficit ...Motor Strength: LLE, RLE Psychiatric: Yes: Other Labs: CBC, BMP 11/25/17 05:35 11/25/17 05:35 INR, PTT INR 2.97 (0.82-1.09) H 11/25/17 05:35 Fibrinogen < 100.0 mg/dL (238-498) L* D 11/25/17 05:35 Problem List - Problems (1) Anemia Code(s): D64.9 - ANEMIA, UNSPECIFIED Qualifiers: (2) Ascites due to alcoholic cirrhosis Code(s): K70.31 - ALCOHOLIC CIRRHOSIS OF LIVER WITH ASCITES (3) CHF (congestive heart failure) Code(s): I50.9 - HEART FAILURE, UNSPECIFIED (4) Encephalopathy Code(s): G93.40 - ENCEPHALOPATHY, UNSPECIFIED (5) Liver cirrhosis Code(s): K74.60 - UNSPECIFIED CIRRHOSIS OF LIVER (6) Acute kidney injury Code(s): N17.9 - ACUTE KIDNEY FAILURE, UNSPECIFIED (7) Alcohol abuse Code(s): F10.10 - ALCOHOL ABUSE, UNCOMPLICATED (8) Alcohol dependence with uncomplicated withdrawal Code(s): F10.230 - ALCOHOL DEPENDENCE WITH WITHDRAWAL, UNCOMPLICATED (9) Alcoholic cirrhosis Code(s): K70.30 - ALCOHOLIC CIRRHOSIS OF LIVER WITHOUT ASCITES Qualifiers: Ascites presence: with ascites Qualified Code(s): K70.31 - Alcoholic cirrhosis of liver with ascites (10) Bleeding Code(s): R58 - HEMORRHAGE, NOT ELSEWHERE CLASSIFIED (11) Cellulitis Code(s): L03.90 - CELLULITIS, UNSPECIFIED Qualifiers: Site of cellulitis: other site Qualified Code(s): L03.818 - Cellulitis of other sites (12) Stomatitis and mucositis Code(s): K12.1 - OTHER FORMS OF STOMATITIS; K12.30 - ORAL MUCOSITIS (ULCERATIVE) , UNSPECIFIED (13) Epistaxis not due to trauma Code(s): R04.0 - EPISTAXIS Assessment/Plan THROMBOCYTOPENIA ACTIVE BLEEDS WITH STOMATITIS AND LIVER CIRRHOSIS WILL NEED PARACENTESIS FOR ASCITES WITH IR DR JEONG FFP/PRBC TRANSFUSIONS WILL NEED TRANSFUSIONS H/H 02/19 HEME/ONC AND GI CONSULTS APPRECIATED NPO CHECK LABS
[2017-11-25] MEDS ORDERED: PT OWN MED DRAWER 7, Y5N ONE ×3 (11:48→21:04)
--- NOTE | 2017-11-25 14:57 | PN ---
Progress Note (short form) - Note Progress Note: Renal follow up for PATRICIA on CKD Pt seen and examined at the bedside awake and alert no acute complaints tolerating diet no further bleeding from mouth making urine Vital Signs Temperature 98.4 F 11/25/17 09:03 Pulse Rate 85 11/25/17 09:03 Respiratory Rate 20 11/25/17 09:03 Blood Pressure 130/64 11/25/17 09:03 O2 Sat by Pulse Oximetry (%) 96 11/25/17 09:03 Intake & Output 11/22/17 11/23/17 11/24/17 11/25/17 23:59 23:59 23:59 23:59 Intake Total 940 Balance 940 Weight 88.451 kg 88.451 kg NAD, awake and alert no JVD, neck supple RRR, No M/R CTA Obese, + ascities, no tenderness Trace sacral edema, 1+ LE edema No bladder distension CBC, BMP 11/25/17 05:35 11/25/17 05:35 Current Medications Cyanocobalamin (Vitamin B12 -) 100 mcg PO DAILY [facility] Last Admin: 11/25/17 09:19 Dose: 100 mcg Folic Acid (Folic Acid -) 1 mg PO DAILY [facility] Last Admin: 11/25/17 09:19 Dose: 1 mg Furosemide (Lasix -) 40 mg PO DAILY [facility] Last Admin: 11/25/17 09:19 Dose: 40 mg Gabapentin (Neurontin -) 300 mg PO Q6HPO [facility] Last Admin: 11/25/17 12:01 Dose: 300 mg Hydroxyzine HCl (Atarax -) 50 mg PO Q6H PRN PRN Reason: ITCHING Cefazolin Sodium/Dextrose (Ancef 2 Gm Premixed Ivpb -) 2 gm in 50 mls @ 100 mls /hr IVPB BID [facility] Last Admin: 11/25/17 09:19 Dose: 100 mls/hr Lidocaine/Aluminum/Magnesium/Simeth (Magic Mouthwash *Sjr Formula* -) 5 ml MM Q6HPO [facility] Last Admin: 11/25/17 12:01 Dose: 5 ml Oxycodone HCl (Roxicodone -) 5 mg PO Q8H PRN PRN Reason: PAIN LEVEL 6-10 Last Admin: 11/25/17 06:02 Dose: 5 mg Pantoprazole Sodium (Protonix -) 40 mg PO DAILY [facility] Last Admin: 11/25/17 09:19 Dose: 40 mg Rifaximin (Xifaxan -) 550 mg PO BID [facility] Last Admin: 11/25/17: Dose: 550 mg Thiamine HCl (Vitamin B1 -) 100 mg PO DAILY [facility] Last Admin: 11/25/17: Dose: 100 mg 52 year old gentleman with PMhx of Alcoholic liver cirrhosis with Hx of Hepto- renal syndrome s/p recent admission at [facility] for Ascities/SBP/Catheter associated bacteremia now presents with AMS as per medical record with Cr of 1.8. #PATRICIA in setting of Liver failure #Alcoholic Liver cirrhosis #coagulopathy in setting of liver disease #Acute on chronic anemia #Thrombocytopenia Do not suspect pt is in Hepato-renal syndrome at this time Cr has been stable here and from discharge from [facility] pt does not appear grossly overloaded and BP stable would suggest restarting maintenance diuretics in next 24-28 hours to prevent overt ascities and LE edema Trend renal function and electrolytes avoid nephrotoxins and dose all meds for CrCl ~30 no indication for [employer] GI follow up transfuse as per primary team Prognosis is poor
[2017-11-25 17:15] LABS: INR 2.18 (0.82-1.09); PROTHROMBIN TIME (PATIENT) 24.6 SEC (9.7-13.0)
--- NOTE | 2017-11-25 17:16 | PN ---
Progress Note, Physician History of Present Illness: Awake, alert, jaundiced, Grade I-II encephalopathy. Abdomen, soft, non-tender, girth increased compared to yesterday. - Current Medication List Current Medications: Active Medications Cyanocobalamin (Vitamin B12 -) [address] [facility] Last Admin: 11/25/17 09:19 Dose: 100 mcg Folic Acid (Folic Acid -) [address] [facility] Last Admin: 11/25/17 09:19 Dose: 1 mg Furosemide (Lasix -) [address] [facility] Last Admin: 11/25/17 09:19 Dose: 40 mg Gabapentin (Neurontin -) [address] [facility] Last Admin: 11/25/17 16:59 Dose: 300 mg Hydroxyzine HCl (Atarax -) 50 mg PO Q6H PRN PRN Reason: ITCHING Cefazolin Sodium/Dextrose (Ancef 2 Gm Premixed Ivpb -) 2 gm in 50 mls @ 100 mls /hr IVPB BID [facility] Last Admin: 11/25/17 09:19 Dose: 100 mls/hr Lidocaine/Aluminum/Magnesium/Simeth (Magic Mouthwash *Sjr Formula* -) [address] [facility] Last Admin: 11/25/17 16:59 Dose: 5 ml Oxycodone HCl (Roxicodone -) 5 mg PO Q8H PRN PRN Reason: PAIN LEVEL 6-10 Last Admin: 11/25/17 16:58 Dose: 5 mg Pantoprazole Sodium (Protonix -) [address] [facility] Last Admin: 11/25/17 09:19 Dose: 40 mg Rifaximin (Xifaxan -) [address] [facility] Last Admin: 11/25/17 09:19 Dose: 550 mg Thiamine HCl (Vitamin B1 -) [address] [facility] Last Admin: 11/25/17 09:19 Dose: 100 mg - Objective Vital Signs: Vital Signs Temperature 98.4 F 11/25/17 15:25 Pulse Rate 77 11/25/17 15:25 Respiratory Rate 16 11/25/17 15:25 Blood Pressure 156/72 11/25/17 15:25 O2 Sat by Pulse Oximetry (%) 96 11/25/17 09:03 Constitutional: Yes: No Distress, Calm Psychiatric: Yes: Alert, Oriented Labs: CBC, BMP 11/25/17 05:35 11/25/17 05:35 INR, PTT INR 2.97 (0.82-1.09) H 11/25/17 05:35 Fibrinogen < 100.0 mg/dL (238-498) L* D 11/25/17 05:35 Laboratory Last Values WBC 4.8 K/mm3 (4.0-10.0) 11/25/17 05:35 RBC 2.21 M/mm3 (4.00-5.60) L 11/25/17 05:35 Hgb 7.1 GM/dL (11.7-16.9) L 11/25/17 05:35 Hct 20.0 % (35.4-49) L 11/25/17 05:35 MCV 90.7 fl (80-96) 11/25/17 05:35 MCH 32.0 pg (25.7-33.7) 11/25/17 05:35 MCHC 35.3 g/dl (32.0-35.9) 11/25/17 05:35 RDW 17.3 % (11.9-15.9) H 11/25/17 05:35 Plt Count 53 K/MM3 (134-434) L 11/25/17 05:35 MPV 8.2 fl (7.5-11.1) 11/25/17 05:35 Neutrophils % 68.0 % (42.8-82.8) 11/23/17 20:38 Lymphocytes % 19.7 % (8-40) D 11/23/17 20:38 Monocytes % 8.6 % (3.8-10.2) 11/23/17 20:38 Eosinophils % 3.2 % (0-4.5) 11/23/17 20:38 Basophils % 0.5 % (0-2.0) 11/23/17 20:38 PT with INR 33.60 SEC (9.7-13.0) H 11/25/17 05:35 INR 2.97 (0.82-1.09) H 11/25/17 05:35 Fibrinogen < 100.0 mg/dL (238-498) L* D 11/25/17 05:35 Sodium 137 mmol/L (136-145) 11/25/17 05:35 Potassium 4.3 mmol/L (3.5-5.1) 11/25/17 05:35 Chloride 102 mmol/L (98-107) 11/25/17 05:35 Carbon Dioxide 27 mmol/L (21-32) 11/25/17 05:35 Anion Gap 8 (8-16) 11/25/17 05:35 BUN 31 mg/dL (7-18) H 11/25/17 05:35 Creatinine 1.7 mg/dL (0.7-1.3) H 11/25/17 05:35 Creat Clearance w eGFR 42.21 (>60) 11/25/17 05:35 Random Glucose 98 mg/dL (74-106) 11/25/17 05:35 Calcium 9.0 mg/dL (8.5-10.1) 11/25/17 05:35 Phosphorus 2.7 mg/dL (2.5-4.9) D 11/24/17 06:08 Magnesium 2.0 mg/dL (1.8-2.4) 11/25/17 05:35 Iron 111 ug/dL (38-169) 11/24/17 06:08 TIBC < 128 ug/dL (250-450) L 11/24/17 06:08 Iron Saturation > 87 % (15-55) H 11/24/17 06:08 Ferritin 2868.722 ng/ml (16.4-293.9) H 11/24/17 06:08 Total Bilirubin 7.4 mg/dL (0.2-1.0) H 11/25/17 05:35 Direct Bilirubin 2.3 mg/dL (0.0-0.2) H 11/23/17 23:40 AST 59 U/L (15-37) H 11/25/17 05:35 ALT 6 U/L (12-78) L 11/25/17 05:35 Alkaline Phosphatase 68 U/L (45-117) 11/25/17 05:35 Ammonia < 10.0 umol/L (11-32) L 11/23/17 20:32 Creatine Kinase 24 IU/L (39-308) L 11/23/17 20:38 Troponin I 0.03 ng/ml (0.00-0.05) D 11/23/17 20:38 B-Natriuretic Peptide 7258.68 pg/ml (5-125) H 11/23/17 20:38 Total Protein 7.4 g/dl (6.4-8.2) 11/25/17 05:35 Albumin 4.3 g/dl (3.4-5.0) 11/25/17 05:35 Lipase 85 U/L (73-393) 11/23/17 20:38 Urine Color Straw 11/24/17 00:50 Urine Appearance Clear 11/24/17 00:50 Urine pH 7.0 (5.0-8.0) D 11/24/17 00:50 Ur Specific Lucile 1.004 (1.001-1.035) 11/24/17 00:50 Urine Protein Negative (NEGATIVE) 11/24/17 00:50 Urine Glucose (UA) Negative (NEGATIVE) 11/24/17 00:50 Urine Ketones Negative (NEGATIVE) 11/24/17 00:50 Urine Blood Negative (NEGATIVE) 11/24/17 00:50 Urine Nitrite Negative (NEGATIVE) 11/24/17 00:50 Urine Bilirubin Negative (<2.0 mg/dL) 11/24/17 00:50 Urine Urobilinogen Negative mg/dL (0.2-1.0) 11/24/17 00:50 Ur Leukocyte Esterase Negative (NEGATIVE) 11/24/17 00:50 Stool Occult Blood Positive (NEGATIVE) 11/25/17 02:20 Acetone, Qual Negative (NEGATIVE) 11/23/17 20:38 Blood Type O POSITIVE 11/23/17 20:38 Antibody Screen Negative 11/23/17 20:38 Crossmatch See Detail 11/23/17 20:38 Problem List - Problems (1) Encephalopathy Code(s): G93.40 - ENCEPHALOPATHY, UNSPECIFIED (2) Ascites due to alcoholic cirrhosis Code(s): K70.31 - ALCOHOLIC CIRRHOSIS OF LIVER WITH ASCITES (3) Liver cirrhosis Code(s): K74.60 - UNSPECIFIED CIRRHOSIS OF LIVER (4) Alcoholic cirrhosis Code(s): K70.30 - ALCOHOLIC CIRRHOSIS OF LIVER WITHOUT ASCITES Qualifiers: Ascites presence: with ascites Qualified Code(s): K70.31 - Alcoholic cirrhosis of liver with ascites Assessment/Plan MELD 31 HRS type 2 No SBP suspected at this time Moderate ascites Minimal Rectal bleeding, INR 2.97 FFP/PRBC given. Nephrology assessment appreciated Continue with lactulose and rifaximine, lasix. Add aldactone after paracentesis , if Cr remains stable Daily MELD/labs. If MELD climbing, transfer to [facility] liver service
[2017-11-26] MEDS: oxyCODONE HCL 5 MG TABLET PO PRN ×3 (01:36→17:14)
[2017-11-26] MEDS ORDERED: PT OWN MED DRAWER 7, Y5N ONE ×3 (05:26→20:06)
[2017-11-26] MEDS: GABAPENTIN 300 MG CAPSULE (FP) PO SCH ×4 (05:32→23:58)
[2017-11-26] MEDS: MAG HYDROX/ALH/SMC/DPHA/LIDO 240 ML MOUTHWASH MM SCH ×4 (05:33→23:58)
[2017-11-26 07:40] LABS: BASO % 0.7 % (0-2.0); EOS % 3.2 % (0-4.5); HEMATOCRIT 23.7 % (35.4-49); HEMOGLOBIN 8.5 GM/dL (11.7-16.9); LYMPH % 23.4 % (8-40); MCH 32.1 pg (25.7-33.7); MEAN CELL VOLUME 89.1 fl (80-96); MEAN PLT VOLUME 9.2 fl (7.5-11.1); MONO % 11.1 % (3.8-10.2); NEUT % 61.6 % (42.8-82.8); PLATELET COUNT 66 K/MM3 (134-434); RBC 2.66 M/mm3 (4.00-5.60); RDW 18.5 % (11.9-15.9); WHITE BLOOD COUNT 5.6 K/mm3 (4.0-10.0)
--- NOTE | 2017-11-26 07:48 | PN ---
Progress Note, Physician Chief Complaint: ID Cefazolin continues Afebrile - Current Medication List Current Medications: Active Medications Cyanocobalamin (Vitamin B12 -) 100 mcg PO DAILY [facility] Last Admin: 11/25/17 09:19 Dose: 100 mcg Folic Acid (Folic Acid -) 1 mg PO DAILY [facility] Last Admin: 11/25/17 09:19 Dose: 1 mg Furosemide (Lasix -) 40 mg PO DAILY [facility] Last Admin: 11/25/17 09:19 Dose: 40 mg Gabapentin (Neurontin -) 300 mg PO Q6HPO [facility] Last Admin: 11/26/17 05:32 Dose: 300 mg Hydroxyzine HCl (Atarax -) 50 mg PO Q6H PRN PRN Reason: ITCHING Cefazolin Sodium/Dextrose (Ancef 2 Gm Premixed Ivpb -) 2 gm in 50 mls @ 100 mls /hr IVPB BID [facility] Last Admin: 11/25/17 21:06 Dose: 100 mls/hr Lidocaine/Aluminum/Magnesium/Simeth (Magic Mouthwash *Sjr Formula* -) 5 ml MM Q6HPO [facility] Last Admin: 11/26/17 05:33 Dose: 5 ml Oxycodone HCl (Roxicodone -) 5 mg PO Q8H PRN PRN Reason: PAIN LEVEL 6-10 Last Admin: 11/26/17 01:36 Dose: 5 mg Pantoprazole Sodium (Protonix -) 40 mg PO DAILY [facility] Last Admin: 11/25/17 09:19 Dose: 40 mg Rifaximin (Xifaxan -) 550 mg PO BID [facility] Last Admin: 11/25/17 21:06 Dose: 550 mg Thiamine HCl (Vitamin B1 -) 100 mg PO DAILY [facility] Last Admin: 11/25/17 09:19 Dose: 100 mg - Objective Vital Signs: Vital Signs Temperature 98.2 F 11/26/17 06:00 Pulse Rate 92 H 11/26/17 06:00 Respiratory Rate 20 11/26/17 06:00 Blood Pressure 146/76 11/26/17 06:00 O2 Sat by Pulse Oximetry (%) 94 L 11/25/17 21:00 Constitutional: Yes: Well Nourished, No Distress Eyes: Yes: Sclera Icterus HENT: Yes: WNL, Atraumatic Neck: Yes: WNL, Supple Cardiovascular: Yes: Regular Rate and Rhythm, S1, S2. No: Murmur Respiratory: Yes: WNL, Regular, CTA Bilaterally Gastrointestinal: Yes: WNL, Normal Bowel Sounds, Soft, Ascites. No: Tenderness , Epigastrium Edema: Yes Labs: CBC, BMP 11/26/17 06:30 INR, PTT INR 2.18 (0.82-1.09) H 11/25/17 15:15 Fibrinogen < 100.0 mg/dL (238-498) L* D 11/25/17 05:35 Problem List - Problems (1) MSSA bacteremia Code(s): R78.81 - BACTEREMIA (2) Liver cirrhosis Code(s): K74.60 - UNSPECIFIED CIRRHOSIS OF LIVER (3) Cellulitis Code(s): L03.90 - CELLULITIS, UNSPECIFIED Qualifiers: Site of cellulitis: other site Qualified Code(s): L03.818 - Cellulitis of other sites Assessment/Plan Microbiology 11/23/17 20:15 Blood - Peripheral Venous Blood Culture - Preliminary NO GROWTH OBTAINED AFTER 48 HOURS, INCUBATION TO CONTINUE FOR 3 DAYS. 11/23/17 20:15 Blood - Peripheral Venous Blood Culture - Preliminary NO GROWTH OBTAINED AFTER 48 HOURS, INCUBATION TO CONTINUE FOR 3 DAYS. Laboratory Tests 11/25/17 11/25/17 11/26/17 05:35 05:35 06:30 WBC 4.8 Pending Hgb 7.1 L Pending Hct 20.0 L Pending Plt Count 53 L Pending Creat Clearance w eGFR 42.21 Assessment MSSA bacteremia 4/5 PICC line Plan Complete treatment as outline from [facility] Kindly recall as needed Vishal WOODWARD
[2017-11-26 07:51] LABS: ANION GAP 5 (8-16); BLOOD UREA NITROGEN 31 mg/dL (7-18); CHLORIDE 101 mmol/L (98-107); CO2 29 mmol/L (21-32); GLUCOSE,RANDOM 101 mg/dL (74-106); SODIUM 135 mmol/L (136-145)
[2017-11-26 07:54] LABS: CALCIUM 9.2 mg/dL (8.5-10.1); CREATININE 1.8 mg/dL (0.7-1.3); MAGNESIUM 1.8 mg/dL (1.8-2.4); PHOSPHOROUS 2.7 mg/dL (2.5-4.9)
[2017-11-26] MEDS ORDERED: LACTULOSE 20 GM/30 ML UDC (FOR ORAL USE ONLY) PO PRN (09:46)
[2017-11-26] MEDS: THIAMINE HCL 100 MG TABLET (FP) PO SCH (09:55)
[2017-11-26] MEDS: CEFAZOLIN 2 GM/D5W 2 GM/50 ML ML IVPB SCH ×2 (09:55→21:07)
[2017-11-26] MEDS: FUROSEMIDE 40 MG TABLET (FP) PO SCH (09:55)
[2017-11-26] MEDS: PANTOPRAZOLE 40 MG TABLET (FP) PO SCH (09:56)
[2017-11-26] MEDS: RIFAXIMIN 550 MG TABLET (UD) PO SCH ×2 (09:56→21:07)
[2017-11-26] MEDS: CYANOCOBALAMIN (VITAMIN B-12) 100 MCG TABLET PO SCH (09:56)
[2017-11-26] MEDS: FOLIC ACID 1 MG TABLET (FP) PO SCH (10:16)
--- NOTE | 2017-11-26 10:39 | PN ---
Progress Note, Physician Chief Complaint: AWAKE EATING BREAKFAST DENIES SOB/CHEST PAIN - Current Medication List Current Medications: Active Medications Cyanocobalamin (Vitamin B12 -) 100 mcg PO DAILY [facility] Last Admin: 11/26/17 09:56 Dose: 100 mcg Folic Acid (Folic Acid -) 1 mg PO DAILY [facility] Last Admin: 11/26/17 10:16 Dose: 1 mg Furosemide (Lasix -) 40 mg PO DAILY [facility] Last Admin: 11/26/17 09:55 Dose: 40 mg Gabapentin (Neurontin -) 300 mg PO Q6HPO [facility] Last Admin: 11/26/17 05:32 Dose: 300 mg Hydroxyzine HCl (Atarax -) 50 mg PO Q6H PRN PRN Reason: ITCHING Cefazolin Sodium/Dextrose (Ancef 2 Gm Premixed Ivpb -) 2 gm in 50 mls @ 100 mls /hr IVPB BID [facility] Last Admin: 11/26/17 09:55 Dose: 100 mls/hr Lactulose (Cephulac (Oral Use)) 20 gm PO TID PRN PRN Reason: CONSTIPATION Lidocaine/Aluminum/Magnesium/Simeth (Magic Mouthwash *Sjr Formula* -) 5 ml MM Q6HPO [facility] Last Admin: 11/26/17 05:33 Dose: 5 ml Oxycodone HCl (Roxicodone -) 5 mg PO Q8H PRN PRN Reason: PAIN LEVEL 6-10 Last Admin: 11/26/17 10:15 Dose: 5 mg Pantoprazole Sodium (Protonix -) 40 mg PO DAILY [facility] Last Admin: 11/26/17 09:56 Dose: 40 mg Rifaximin (Xifaxan -) 550 mg PO BID [facility] Last Admin: 11/26/17 09:56 Dose: 550 mg Thiamine HCl (Vitamin B1 -) 100 mg PO DAILY [facility] Last Admin: 11/26/17 09:55 Dose: 100 mg - Objective Vital Signs: Vital Signs Temperature 98.2 F 11/26/17 06:00 Pulse Rate 92 H 11/26/17 06:00 Respiratory Rate 20 11/26/17 08:51 Blood Pressure 146/76 11/26/17 06:00 O2 Sat by Pulse Oximetry (%) 94 L 11/26/17 08:51 Constitutional: Yes: No Distress Eyes: Yes: WNL HENT: Yes: WNL Neck: Yes: WNL Cardiovascular: Yes: WNL Respiratory: Yes: WNL Gastrointestinal: Yes: Ascites, Tenderness Genitourinary: Yes: WNL Musculoskeletal: Yes: WNL Extremities: Yes: Erythema Edema: Yes Edema: LLE: Trace, RLE: Trace Peripheral Pulses WNL: Yes Integumentary: Yes: Pressure Ulcer, Rash, Skin Tear Wound/Incision: Yes: Dressing Dry and Intact (RIGHT ARM DRESSING CLEAN) Neurological: Yes: Pre-Existing Deficit ...Motor Strength: LLE, RLE Psychiatric: Yes: Other Labs: CBC, BMP 11/26/17 06:30 11/26/17 06:30 INR, PTT INR 2.18 (0.82-1.09) H 11/25/17 15:15 Fibrinogen < 100.0 mg/dL (238-498) L* D 11/25/17 05:35 Problem List - Problems (1) Anemia Code(s): D64.9 - ANEMIA, UNSPECIFIED Qualifiers: (2) Ascites due to alcoholic cirrhosis Code(s): K70.31 - ALCOHOLIC CIRRHOSIS OF LIVER WITH ASCITES (3) CHF (congestive heart failure) Code(s): I50.9 - HEART FAILURE, UNSPECIFIED (4) Encephalopathy Code(s): G93.40 - ENCEPHALOPATHY, UNSPECIFIED (5) Liver cirrhosis Code(s): K74.60 - UNSPECIFIED CIRRHOSIS OF LIVER (6) Acute kidney injury Code(s): N17.9 - ACUTE KIDNEY FAILURE, UNSPECIFIED (7) Alcohol abuse Code(s): F10.10 - ALCOHOL ABUSE, UNCOMPLICATED (8) Alcohol dependence with uncomplicated withdrawal Code(s): F10.230 - ALCOHOL DEPENDENCE WITH WITHDRAWAL, UNCOMPLICATED (9) Alcoholic cirrhosis Code(s): K70.30 - ALCOHOLIC CIRRHOSIS OF LIVER WITHOUT ASCITES Qualifiers: Ascites presence: with ascites Qualified Code(s): K70.31 - Alcoholic cirrhosis of liver with ascites (10) Bleeding Code(s): R58 - HEMORRHAGE, NOT ELSEWHERE CLASSIFIED (11) Cellulitis Code(s): L03.90 - CELLULITIS, UNSPECIFIED Qualifiers: Site of cellulitis: other site Qualified Code(s): L03.818 - Cellulitis of other sites (12) Stomatitis and mucositis Code(s): K12.1 - OTHER FORMS OF STOMATITIS; K12.30 - ORAL MUCOSITIS (ULCERATIVE) , UNSPECIFIED (13) Epistaxis not due to trauma Code(s): R04.0 - EPISTAXIS Assessment/Plan PARACENTESIS TODAY FFP/PRBC TRANSFUSION PER GI/HEME LACTULOSE TID XIFAXIN OOB TO CHAIR ID CONSULT WOUND DRESSING RIGHT ARM
--- NOTE | 2017-11-26 11:54 | PN ---
Progress Note, Physician History of Present Illness: Talkative. Awake, alert, jaundiced, Grade I-II encephalopathy. Abdomen, soft, non-tender, girth increased compared to yesterday. - Current Medication List Current Medications: Active Medications Cyanocobalamin (Vitamin B12 -) 100 mcg PO DAILY [facility] Last Admin: 11/26/17 09:56 Dose: 100 mcg Folic Acid (Folic Acid -) 1 mg PO DAILY [facility] Last Admin: 11/26/17 10:16 Dose: 1 mg Furosemide (Lasix -) 40 mg PO DAILY [facility] Last Admin: 11/26/17 09:55 Dose: 40 mg Gabapentin (Neurontin -) 300 mg PO Q6HPO [facility] Last Admin: 11/26/17 05:32 Dose: 300 mg Hydroxyzine HCl (Atarax -) 50 mg PO Q6H PRN PRN Reason: ITCHING Cefazolin Sodium/Dextrose (Ancef 2 Gm Premixed Ivpb -) 2 gm in 50 mls @ 100 mls /hr IVPB BID [facility] Last Admin: 11/26/17 09:55 Dose: 100 mls/hr Lactulose (Cephulac (Oral Use)) 20 gm PO TID PRN PRN Reason: CONSTIPATION Lidocaine/Aluminum/Magnesium/Simeth (Magic Mouthwash *Sjr Formula* -) 5 ml MM Q6HPO [facility] Last Admin: 11/26/17 05:33 Dose: 5 ml Oxycodone HCl (Roxicodone -) 5 mg PO Q8H PRN PRN Reason: PAIN LEVEL 6-10 Last Admin: 11/26/17 10:15 Dose: 5 mg Pantoprazole Sodium (Protonix -) 40 mg PO DAILY [facility] Last Admin: 11/26/17 09:56 Dose: 40 mg Rifaximin (Xifaxan -) 550 mg PO BID [facility] Last Admin: 11/26/17 09:56 Dose: 550 mg Thiamine HCl (Vitamin B1 -) 100 mg PO DAILY [facility] Last Admin: 11/26/17 09:55 Dose: 100 mg - Objective Vital Signs: Vital Signs Temperature 98.2 F 11/26/17 06:00 Pulse Rate 92 H 11/26/17 06:00 Respiratory Rate 20 11/26/17 08:51 Blood Pressure 146/76 11/26/17 06:00 O2 Sat by Pulse Oximetry (%) 94 L 11/26/17 08:51 Constitutional: Yes: Anxious Eyes: Yes: Sclera Icterus Gastrointestinal: Yes: Ascites. No: Tenderness, Vomiting Neurological: Yes: Ataxia Labs: CBC, BMP 11/26/17 06:30 11/26/17 06:30 INR, PTT INR 2.18 (0.82-1.09) H 11/25/17 15:15 Fibrinogen < 100.0 mg/dL (238-498) L* D 11/25/17 05:35 Laboratory Last Values WBC 5.6 K/mm3 (4.0-10.0) 11/26/17 06:30 RBC 2.66 M/mm3 (4.00-5.60) L D 11/26/17 06:30 Hgb 8.5 GM/dL (11.7-16.9) L D 11/26/17 06:30 Hct 23.7 % (35.4-49) L D 11/26/17 06:30 MCV 89.1 fl (80-96) 11/26/17 06:30 MCH 32.1 pg (25.7-33.7) 11/26/17 06:30 MCHC 36.0 g/dl (32.0-35.9) H 11/26/17 06:30 RDW 18.5 % (11.9-15.9) H 11/26/17 06:30 Plt Count 66 K/MM3 (134-434) L D 11/26/17 06:30 MPV 9.2 fl (7.5-11.1) D 11/26/17 06:30 Neutrophils % 61.6 % (42.8-82.8) 11/26/17 06:30 Lymphocytes % 23.4 % (8-40) 11/26/17 06:30 Monocytes % 11.1 % (3.8-10.2) H 11/26/17 06:30 Eosinophils % 3.2 % (0-4.5) 11/26/17 06:30 Basophils % 0.7 % (0-2.0) 11/26/17 06:30 PT with INR 24.60 SEC (9.7-13.0) H 11/25/17 15:15 INR 2.18 (0.82-1.09) H 11/25/17 15:15 Fibrinogen < 100.0 mg/dL (238-498) L* D 11/25/17 05:35 Sodium 135 mmol/L (136-145) L 11/26/17 06:30 Potassium 4.0 mmol/L (3.5-5.1) 11/26/17 06:30 Chloride 101 mmol/L (98-107) 11/26/17 06:30 Carbon Dioxide 29 mmol/L (21-32) 11/26/17 06:30 Anion Gap 5 (8-16) L 11/26/17 06:30 BUN 31 mg/dL (7-18) H 11/26/17 06:30 Creatinine 1.8 mg/dL (0.7-1.3) H 11/26/17 06:30 Creat Clearance w eGFR 42.21 (>60) 11/25/17 05:35 Random Glucose 101 mg/dL (74-106) 11/26/17 06:30 Calcium 9.2 mg/dL (8.5-10.1) 11/26/17 06:30 Phosphorus 2.7 mg/dL (2.5-4.9) 11/26/17 06:30 Magnesium 1.8 mg/dL (1.8-2.4) 11/26/17 06:30 Iron 111 ug/dL (38-169) 11/24/17 06:08 TIBC < 128 ug/dL (250-450) L 11/24/17 06:08 Iron Saturation > 87 % (15-55) H 11/24/17 06:08 Ferritin 2868.722 ng/ml (16.4-293.9) H 11/24/17 06:08 Total Bilirubin 7.4 mg/dL (0.2-1.0) H 11/25/17 05:35 Direct Bilirubin 2.3 mg/dL (0.0-0.2) H 11/23/17 23:40 AST 59 U/L (15-37) H 11/25/17 05:35 ALT 6 U/L (12-78) L 11/25/17 05:35 Alkaline Phosphatase 68 U/L (45-117) 11/25/17 05:35 Ammonia < 10.0 umol/L (11-32) L 11/23/17 20:32 Creatine Kinase 24 IU/L (39-308) L 11/23/17 20:38 Troponin I 0.03 ng/ml (0.00-0.05) D 11/23/17 20:38 B-Natriuretic Peptide 7258.68 pg/ml (5-125) H 11/23/17 20:38 Total Protein 7.4 g/dl (6.4-8.2) 11/25/17 05:35 Albumin 4.3 g/dl (3.4-5.0) 11/25/17 05:35 Lipase 85 U/L (73-393) 11/23/17 20:38 Urine Color Straw 11/24/17 00:50 Urine Appearance Clear 11/24/17 00:50 Urine pH 7.0 (5.0-8.0) D 11/24/17 00:50 Ur Specific Lexa 1.004 (1.001-1.035) 11/24/17 00:50 Urine Protein Negative (NEGATIVE) 11/24/17 00:50 Urine Glucose (UA) Negative (NEGATIVE) 11/24/17 00:50 Urine Ketones Negative (NEGATIVE) 11/24/17 00:50 Urine Blood Negative (NEGATIVE) 11/24/17 00:50 Urine Nitrite Negative (NEGATIVE) 11/24/17 00:50 Urine Bilirubin Negative (<2.0 mg/dL) 11/24/17 00:50 Urine Urobilinogen Negative mg/dL (0.2-1.0) 11/24/17 00:50 Ur Leukocyte Esterase Negative (NEGATIVE) 11/24/17 00:50 Stool Occult Blood Positive (NEGATIVE) 11/25/17 02:20 Acetone, Qual Negative (NEGATIVE) 11/23/17 20:38 Blood Type O POSITIVE 11/23/17 20:38 Antibody Screen Negative 11/23/17 20:38 Crossmatch See Detail 11/23/17 20:38 Problem List - Problems (1) Encephalopathy Code(s): G93.40 - ENCEPHALOPATHY, UNSPECIFIED (2) Ascites due to alcoholic cirrhosis Code(s): K70.31 - ALCOHOLIC CIRRHOSIS OF LIVER WITH ASCITES (3) Liver cirrhosis Code(s): K74.60 - UNSPECIFIED CIRRHOSIS OF LIVER (4) Alcoholic cirrhosis Code(s): K70.30 - ALCOHOLIC CIRRHOSIS OF LIVER WITHOUT ASCITES Qualifiers: Ascites presence: with ascites Qualified Code(s): K70.31 - Alcoholic cirrhosis of liver with ascites Assessment/Plan MELD 31 yesterday. received FFP, PRBC yesterday in the afternoon. No liver chemistry obtained this morning. HRS type 2 No SBP suspected at this time Moderate ascites No gross bleeding FFP/PRBC given. Nephrology assessment appreciated Continue with lactulose and rifaximine, lasix. Add aldactone after paracentesis , if Cr remains stable Daily MELD/labs. If MELD climbing, transfer to [facility] liver service 2 more units of FFP followed by PT/INR this morning for guided paracentesis
--- NOTE | 2017-11-26 13:53 | PN ---
Progress Note (short form) - Note Progress Note: Patient seen and examined For paracentesis 2 units of FFP prior to procedure Will not be able to correct coagulopathy, but hopefully can maintain hemostasis. May need post op treatment with FFP or cryo in view of low fibrinogen Last Vital Signs Temp Pulse Resp BP Pulse Ox 98.2 F 92 H 20 146/76 94 L 11/26/17 06:00 11/26/17 06:00 11/26/17 08:51 11/26/17 06:00 11/26/17 08:51 HEENT: ALAN, EOM Intact, icteric Breasts:bilateral gynecomastia Cor: RSR, systolic murmur Lungs: diminished breath sounds Abd: soft, increasing ascites Ext:LE edema Skin: stasis LE's CBC, BMP 11/26/17 06:30 11/26/17 06:30 Current Medications Generic Name Dose Route Start Last Admin Trade Name Freq PRN Reason Stop Dose Admin Cyanocobalamin 100 mcg 11/24/17 10:00 11/26/17 09:56 Vitamin B12 - PO 100 mcg DAILY [facility]ITA Administration Folic Acid 1 mg 11/24/17 10:00 11/26/17 10:16 Folic Acid - PO 1 mg DAILY [facility] Administration Furosemide 40 mg 11/24/17 10:00 11/26/17 09:55 Lasix - PO 40 mg DAILY [facility]ITA Administration Gabapentin 300 mg 11/24/17 06:00 11/26/17 12:24 Neurontin - PO 300 mg Q6HPO [facility]ITA Administration Hydroxyzine HCl 50 mg 11/23/17 23:42 Atarax - PO Q6H PRN ITCHING Cefazolin Sodium/Dextrose 2 gm in 50 mls @ 100 mls/hr 11/24/17 22:00 09:55 Ancef 2 Gm Premixed Ivpb - IVPB 100 mls/hr BID [facility]ANITA Administration Lactulose 20 gm 11/26/17 09:46 Cephulac (Oral Use) PO TID PRN CONSTIPATION Lidocaine/Aluminum/Magnesium/Simeth 5 ml 11/24/17 13:00 11/26/17 12:24 Magic Mouthwash *Sjr Formula* - MM 5 ml Q6HPO [facility]ITA Administration Oxycodone HCl 5 mg 11/24/17 12:44 11/26/17 10:15 Roxicodone - PO 5 mg Q8H PRN Administration PAIN LEVEL 6-10 Pantoprazole Sodium 40 mg 11/24/17 10:00 11/26/17 09:56 Protonix - PO 40 mg DAILY [facility]ITA Administration Rifaximin 550 mg 11/24/17 10:00 11/26/17 09:56 Xifaxan - PO 550 mg BID VANIAT Administration Thiamine HCl 100 mg 11/24/17 10:00 11/26/17 09:55 Vitamin B1 - PO 100 mg DAILY [facility]ITA Administration Impression Advanced liver disease with alcoholic cirrhosis Leukopenia Anemia Thrombocytopenia Coagulopathy portal hypertension Ascites Hypersplenism Encephalopathy For paracentesis with FFP S/P blood transfusion.
[2017-11-26 14:12] LABS: INR 1.98 (0.82-1.09); PROTHROMBIN TIME (PATIENT) 22.4 SEC (9.7-13.0)
[2017-11-26 18:06] LABS: PERITONEAL RBC 789 /mm3
[2017-11-26 18:24] LABS: TOTAL PROTEIN,PERITONEAL FLUID 3 gm/dL
[2017-11-26 18:42] LABS: PERITONEAL FLUID NEUTROPHIL 5 %
[2017-11-26 18:43] LABS: PERITONEAL FLUID MESOTHELIAL 95 %
[2017-11-26] MEDS: hydrOXYzine HCL 25 MG TABLET (FP) PO PRN (20:12)
[2017-11-27] MEDS: oxyCODONE HCL 5 MG TABLET PO PRN ×5 (00:33→22:07)
[2017-11-27] MEDS ORDERED: traMADol HCL 50 MG TABLET PO ONE (02:54)
[2017-11-27] MEDS: hydrOXYzine HCL 25 MG TABLET (FP) PO PRN ×2 (03:08→23:51)
[2017-11-27] MEDS: GABAPENTIN 300 MG CAPSULE (FP) PO SCH ×4 (06:17→23:51)
[2017-11-27] MEDS: MAG HYDROX/ALH/SMC/DPHA/LIDO 240 ML MOUTHWASH MM SCH ×3 (06:17→17:49)
--- NOTE | 2017-11-27 06:24 | HOSP ---
Subjective - Review of Symptoms Events since last encounter: Hospitalist Encounter Notified by RN that the patient is bleeding from his mouth Subjective: Arrived to bedside, patient is alert to name, but is confused. Upon inspection of his mouth, bleeding has stopped. Advised patient to gently bite down on gauze if bleeding reoccurs. Plan: CBC-stat HEENT: Yes: Other (Bleeding Gums) Physical Examination Vital Signs: Vital Signs Temperature 98.1 F 11/27/17 01:35 Pulse Rate 90 11/27/17 01:35 Respiratory Rate 20 11/27/17 01:35 Blood Pressure 127/73 11/27/17 01:35 O2 Sat by Pulse Oximetry (%) 94 L 11/26/17 21:00 Constitutional: Yes: Anxious, Obese Eyes: Yes: PERRL, Sclera Icterus HENT: Yes: WNL, Atraumatic, Normocephalic Cardiovascular: Yes: Regular Rate and Rhythm, Murmur (systolic), S1, S2 Respiratory: Yes: Diminished (bilaterally) Gastrointestinal: Yes: Ascites Integumentary: Yes: Jaundice Neurological: Yes: Alert, Confusion ...Motor Strength: WNL Psychiatric: Yes: Alert Labs: CBC, BMP 11/26/17 06:30 11/26/17 06:30 Laboratory Results - last 24 hr 11/23/17 11/26/17 11/26/17 20:38 06:30 06:30 WBC 5.6 RBC 2.66 L D Hgb 8.5 L D Hct 23.7 L D MCV 89.1 MCH 32.1 MCHC 36.0 H RDW 18.5 H Plt Count 66 L D MPV 9.2 D Neutrophils % 61.6 Lymphocytes % 23.4 Monocytes % 11.1 H Eosinophils % 3.2 Basophils % 0.7 PT with INR INR Sodium 135 L Potassium 4.0 Chloride 101 Carbon Dioxide 29 Anion Gap 5 L BUN 31 H Creatinine 1.8 H Random Glucose 101 Calcium 9.2 Phosphorus 2.7 Magnesium 1.8 Peritoneal WBC Peritoneal RBC Periton Neutrophils Periton Mesothelial Peritoneal Tot Protein Peritoneal Albumin Peritoneal LDH Peritoneal Glucose Peritoneal Amylase Peritoneal Triglycerid Blood Type O POSITIVE Antibody Screen Negative Crossmatch See Detail 11/26/17 11/26/17 13:45 16:30 WBC RBC Hgb Hct MCV MCH MCHC RDW Plt Count MPV Neutrophils % Lymphocytes % Monocytes % Eosinophils % Basophils % PT with INR 22.40 H INR 1.98 H Sodium Potassium Chloride Carbon Dioxide Anion Gap BUN Creatinine Random Glucose Calcium Phosphorus Magnesium Peritoneal WBC 162 Peritoneal RBC 789 Periton Neutrophils 5 Periton Mesothelial 95 Peritoneal Tot Protein 3 Peritoneal Albumin 2 Peritoneal LDH 65 Peritoneal Glucose 142 Peritoneal Amylase 9 Peritoneal Triglycerid 41 Blood Type Antibody Screen Crossmatch Current Medications Generic Name Dose Route Start Last Admin Trade Name Freq PRN Reason Stop Dose Admin Cyanocobalamin 100 mcg 11/24/17 10:00 11/26/17 09:56 Vitamin B12 - PO 100 mcg DAILY [facility] Administration Folic Acid 1 mg 11/24/17 10:00 11/26/17 10:16 Folic Acid - PO 1 mg DAILY [facility]ITA Administration Furosemide 40 mg 11/24/17 10:00 11/26/17 09:55 Lasix - PO 40 mg DAILY [facility] Administration Gabapentin 300 mg 11/24/17 06:00 11/27/17 06:17 Neurontin - PO 300 mg Q6HPO [facility] Administration Hydroxyzine HCl 50 mg 11/23/17 23:42 11/27/17 03:08 Atarax - PO 50 mg Q6H PRN Administration ITCHING Cefazolin Sodium/Dextrose 2 gm in 50 mls @ 100 mls/hr 11/24/17 22:00 21:07 Ancef 2 Gm Premixed Ivpb - IVPB 100 mls/hr BID [facility] Administration Lactulose 20 gm 11/26/17 09:46 Cephulac (Oral Use) PO TID PRN CONSTIPATION Lidocaine/Aluminum/Magnesium/Simeth 5 ml 11/24/17 13:00 11/27/17 06:17 Magic Mouthwash *Sjr Formula* - MM Not Given Q6HPO [facility] Oxycodone HCl 5 mg 11/24/17 12:44 11/27/17 00:33 Roxicodone - PO 5 mg Q8H PRN Administration PAIN LEVEL 6-10 Pantoprazole Sodium 40 mg 11/24/17 10:00 11/26/17 09:56 Protonix - PO 40 mg DAILY [facility] Administration Rifaximin 550 mg 11/24/17 10:00 11/26/17 21:07 Xifaxan - PO 550 mg BID [facility] Administration Thiamine HCl 100 mg 11/24/17 10:00 11/26/17 09:55 Vitamin B1 - PO 100 mg DAILY [facility] Administration Hospitalist Encounter Assessment: 52 y/o man Admitted for AMS, Anemia Outcome: CBC-pending
[2017-11-27 07:33] LABS: HEMATOCRIT 21.7 % (35.4-49); HEMOGLOBIN 7.8 GM/dL (11.7-16.9); MCH 31.5 pg (25.7-33.7); MEAN CELL VOLUME 87.6 fl (80-96); MEAN PLT VOLUME 8.3 fl (7.5-11.1); RBC 2.48 M/mm3 (4.00-5.60); RDW 17.9 % (11.9-15.9); WHITE BLOOD COUNT 4.7 K/mm3 (4.0-10.0)
[2017-11-27 08:52] LABS: CHLORIDE 98 mmol/L (98-107); POTASSIUM 3.7 mmol/L (3.5-5.1); SODIUM 137 mmol/L (136-145)
[2017-11-27] MEDS ORDERED: PT OWN MED DRAWER 7, Y5N ONE ×2 (09:12→20:56)
[2017-11-27 09:19] LABS: ANION GAP 12 (8-16); BLOOD UREA NITROGEN 29 mg/dL (7-18); CALCIUM 9.4 mg/dL (8.5-10.1); CO2 27 mmol/L (21-32); CREATININE 1.6 mg/dL (0.7-1.3); GLUCOSE,RANDOM 108 mg/dL (74-106); PLATELET COUNT 57 K/MM3 (134-434)
[2017-11-27] MEDS: THIAMINE HCL 100 MG TABLET (FP) PO SCH (10:17)
[2017-11-27] MEDS: RIFAXIMIN 550 MG TABLET (UD) PO SCH ×2 (10:17→22:06)
[2017-11-27] MEDS: PANTOPRAZOLE 40 MG TABLET (FP) PO SCH (10:18)
[2017-11-27] MEDS: CYANOCOBALAMIN (VITAMIN B-12) 100 MCG TABLET PO SCH (10:18)
[2017-11-27] MEDS: CEFAZOLIN 2 GM/D5W 2 GM/50 ML ML IVPB SCH ×2 (10:18→21:07)
[2017-11-27] MEDS: FOLIC ACID 1 MG TABLET (FP) PO SCH (10:18)
[2017-11-27] MEDS: FUROSEMIDE 40 MG TABLET (FP) PO SCH (10:18)
--- NOTE | 2017-11-27 12:22 | PN ---
Progress Note (short form) - Note Progress Note: HEMATOLOGY NOTE : Patient seen and examined Paracentesis was unevenetful This morning had a mild nose bleed Vital Signs Period Temp Pulse Resp BP Sys/Palmer Pulse Ox Last 24 Hr 98.1 F-99.5 F 90-98 20-20 127-144/67-78 94 HEENT: ALAN, EOM Intact, icteric Breasts:bilateral gynecomastia Ext:LE edema Skin: stasis LE's CBC, BMP 11/27/17 06:30 11/27/17 06:30 Current Medications Generic Name Dose Route Start Last Admin Trade Name Freq PRN Reason Stop Dose Admin Cyanocobalamin 100 mcg 11/24/17 10:00 11/27/17 10:18 Vitamin B12 - PO 100 mcg DAILY [facility] Administration Folic Acid 1 mg 11/24/17 10:00 11/27/17 10:18 Folic Acid - PO 1 mg DAILY [facility] Administration Furosemide 40 mg 11/24/17 10:00 11/27/17 10:18 Lasix - PO 40 mg DAILY [facility] Administration Gabapentin 300 mg 11/24/17 06:00 11/27/17 11:44 Neurontin - PO 300 mg Q6HPO [facility] Administration Hydroxyzine HCl 50 mg 11/23/17 23:42 11/27/17 03:08 Atarax - PO 50 mg Q6H PRN Administration ITCHING Cefazolin Sodium/Dextrose 2 gm in 50 mls @ 100 mls/hr 11/24/17 22:00 10:18 Ancef 2 Gm Premixed Ivpb - IVPB 100 mls/hr BID [facility] Administration Lactulose 20 gm 11/26/17 09:46 Cephulac (Oral Use) PO TID PRN CONSTIPATION Lidocaine/Aluminum/Magnesium/Simeth 5 ml 11/24/17 13:00 11/27/17 11:44 Magic Mouthwash *Sjr Formula* - MM 5 ml Q6HPO [facility] Administration Oxycodone HCl 5 mg 11/24/17 12:44 11/27/17 10:23 Roxicodone - PO 5 mg Q8H PRN Administration PAIN LEVEL 6-10 Pantoprazole Sodium 40 mg 11/24/17 10:00 11/27/17 10:18 Protonix - PO 40 mg DAILY [facility] Administration Rifaximin 550 mg 11/24/17 10:00 11/27/17 10:17 Xifaxan - PO 550 mg BID [facility] Administration Thiamine HCl 100 mg 11/24/17 10:00 11/27/17 10:17 Vitamin B1 - PO 100 mg DAILY [facility] Administration Impression Advanced liver disease with alcoholic cirrhosis Leukopenia Anemia Thrombocytopenia Coagulopathy portal hypertension Ascites Hypersplenism Encephalopathy Stable - we will monitor No current bleeding S/P blood transfusion.
--- NOTE | 2017-11-27 12:40 | PN ---
Progress Note, Physician Chief Complaint: Weakness Chronic liver cirrhosis hepato-renal syndrome History of Present Illness: NAD, in chair events overnight noted, was in excruciating pain, was given tramadol 50 mg once at bedside Paracentesis POD#1 - Current Medication List Current Medications: Active Medications Cyanocobalamin (Vitamin B12 -) 100 mcg PO DAILY [facility] Last Admin: 11/27/17 10:18 Dose: 100 mcg Folic Acid (Folic Acid -) 1 mg PO DAILY [facility] Last Admin: 11/27/17 10:18 Dose: 1 mg Furosemide (Lasix -) 40 mg PO DAILY [facility] Last Admin: 11/27/17 10:18 Dose: 40 mg Gabapentin (Neurontin -) 300 mg PO Q6HPO [facility] Last Admin: 11/27/17 11:44 Dose: 300 mg Hydroxyzine HCl (Atarax -) 50 mg PO Q6H PRN PRN Reason: ITCHING Last Admin: 11/27/17 03:08 Dose: 50 mg Cefazolin Sodium/Dextrose (Ancef 2 Gm Premixed Ivpb -) 2 gm in 50 mls @ 100 mls /hr IVPB BID [facility] Last Admin: 11/27/17 10:18 Dose: 100 mls/hr Lactulose (Cephulac (Oral Use)) 20 gm PO TID PRN PRN Reason: CONSTIPATION Lidocaine/Aluminum/Magnesium/Simeth (Magic Mouthwash *Sjr Formula* -) 5 ml MM Q6HPO [facility] Last Admin: 11/27/17 11:44 Dose: 5 ml Oxycodone HCl (Roxicodone -) 5 mg PO Q8H PRN PRN Reason: PAIN LEVEL 6-10 Last Admin: 11/27/17 10:23 Dose: 5 mg Pantoprazole Sodium (Protonix -) 40 mg PO DAILY [facility] Last Admin: 11/27/17 10:18 Dose: 40 mg Rifaximin (Xifaxan -) 550 mg PO BID [facility] Last Admin: 11/27/17 10:17 Dose: 550 mg Thiamine HCl (Vitamin B1 -) 100 mg PO DAILY [facility] Last Admin: 11/27/17 10:17 Dose: 100 mg - Objective Vital Signs: Vital Signs Temperature 98.1 F 11/27/17 06:00 Pulse Rate 98 H 11/27/17 06:00 Respiratory Rate 20 11/27/17 06:00 Blood Pressure 140/67 11/27/17 06:00 O2 Sat by Pulse Oximetry (%) 94 L 11/26/17 21:00 Constitutional: Yes: No Distress, Calm, Other (jaundiced) Cardiovascular: Yes: Regular Rate and Rhythm Respiratory: Yes: Regular Gastrointestinal: Yes: Normal Bowel Sounds, Soft, Ascites Musculoskeletal: Yes: Muscle Weakness Extremities: Yes: Erythema (BLLE), Other (BLLE warm to touch) Edema: Yes Edema: LLE: 1+, RLE: 1+ Peripheral Pulses WNL: Yes Wound/Incision: Yes: Dressing Dry and Intact Neurological: Yes: Alert, Pre-Existing Deficit Psychiatric: Yes: Alert Labs: CBC, BMP 11/27/17 06:30 11/27/17 06:30 INR, PTT INR 1.98 (0.82-1.09) H 11/26/17 13:45 Fibrinogen < 100.0 mg/dL (238-498) L* D 11/25/17 05:35 Problem List - Problems (1) Anemia Assessment/Plan: -Hematology consult -monitor trend -reverse INR if higher than 3.0 Code(s): D64.9 - ANEMIA, UNSPECIFIED Qualifiers: (2) Ascites due to alcoholic cirrhosis Assessment/Plan: -seen by nephrology and GI -albumin -furosemide PRN -Paracentesis done yesterday Code(s): K70.31 - ALCOHOLIC CIRRHOSIS OF LIVER WITH ASCITES (3) CHF (congestive heart failure) Assessment/Plan: -furosemide PRN -I&O -daily weights -CXR reviewed Code(s): I50.9 - HEART FAILURE, UNSPECIFIED (4) Liver cirrhosis Assessment/Plan: -GI consult -was seen by Dr Barajas when at [facility] Code(s): K74.60 - UNSPECIFIED CIRRHOSIS OF LIVER (5) Acute kidney injury Code(s): N17.9 - ACUTE KIDNEY FAILURE, UNSPECIFIED (6) Hepatorenal syndrome Code(s): K76.7 - HEPATORENAL SYNDROME (7) Sepsis Assessment/Plan: -Continu IV abx, as he was getting at home -Cefazolin 2 g BID -ID consult -UC/BC: Microbiology 11/23/17 20:15 Blood - Peripheral Venous Blood Culture - Preliminary NO GROWTH OBTAINED AFTER 72 HOURS, INCUBATION TO CONTINUE FOR 2 DAYS. 11/23/17 20:15 Blood - Peripheral Venous Blood Culture - Preliminary NO GROWTH OBTAINED AFTER 72 HOURS, INCUBATION TO CONTINUE FOR 2 DAYS. 11/24/17 00:50 Urine - Urine Clean Catch Urine Culture - Final NO GROWTH OBTAINED 11/25/17 02:20 Stool Clostridium difficile Antigen (MASTER) - Final 11/25/17 02:20 Stool Clostridium difficile Toxin Assay - Final Code(s): A41.9 - SEPSIS, UNSPECIFIED ORGANISM Assessment/Plan see problem list Spoke to at bedside
[2017-11-27] MEDS: traMADol HCL 50 MG TABLET PO PRN ×2 (14:48→23:51)
[2017-11-27] MEDS: SILVER SULFADIAZINE 1% TOP CREAM 400 GM JAR TP SCH ×2 (15:35→21:14)
--- NOTE | 2017-11-27 20:00 | PN ---
Progress Note (short form) - Note Progress Note: covering dr hester Alcoholic liver cirrhosis h/o Hepato-renal syndrome s/p hosp at [facility] for Ascities/SBP/Catheter associated bacteremia admitted with AMS CKD Cr of 1.8. Active Medications Cyanocobalamin (Vitamin B12 -) 100 mcg PO DAILY [facility] Last Admin: 11/27/17 10:18 Dose: 100 mcg Folic Acid (Folic Acid -) 1 mg PO DAILY [facility] Last Admin: 11/27/17 10:18 Dose: 1 mg Furosemide (Lasix -) 40 mg PO DAILY [facility] Last Admin: 11/27/17 10:18 Dose: 40 mg Gabapentin (Neurontin -) 600 mg PO Q6HPO [facility] Last Admin: 11/27/17 17:49 Dose: 600 mg Hydroxyzine HCl (Atarax -) 50 mg PO Q6H PRN PRN Reason: ITCHING Last Admin: 11/27/17 03:08 Dose: 50 mg Cefazolin Sodium/Dextrose (Ancef 2 Gm Premixed Ivpb -) 2 gm in 50 mls @ 100 mls /hr IVPB BID [facility] Last Admin: 11/27/17 10:18 Dose: 100 mls/hr Lactulose (Cephulac (Oral Use)) 20 gm PO TID PRN PRN Reason: CONSTIPATION Lidocaine/Aluminum/Magnesium/Simeth (Magic Mouthwash *Sjr Formula* -) 5 ml MM Q6HPO [facility] Last Admin: 11/27/17 17:49 Dose: 5 ml Oxycodone HCl (Roxicodone -) 5 mg PO Q6H PRN PRN Reason: PAIN LEVEL 6-10 Last Admin: 11/27/17 15:34 Dose: 5 mg Pantoprazole Sodium (Protonix -) 40 mg PO DAILY [facility] Last Admin: 11/27/17 10:18 Dose: 40 mg Rifaximin (Xifaxan -) 550 mg PO BID [facility] Last Admin: 11/27/17 10:17 Dose: 550 mg Silver Sulfadiazine (Silvadene -) 1 applic TP BID [facility] Last Admin: 11/27/17 15:35 Dose: 1 applic Thiamine HCl (Vitamin B1 -) 100 mg PO DAILY [facility] Last Admin: 11/27/17 10:17 Dose: 100 mg Tramadol HCl (Ultram -) 50 mg PO Q8H PRN PRN Reason: PAIN LEVEL 1-5 Last Admin: 11/27/17 14:48 Dose: 50 mg Last Vital Signs Temp Pulse Resp BP Pulse Ox 98.4 F 85 85 H 119/68 93 L 11/27/17 17:53 11/27/17 17:53 11/27/17 17:53 11/27/17 17:53 11/27/17 10:00 sclerae icteric Lungs clear Heart reg Abd distended but soft, nontender Ext moderate to severe stasis edema CBC, BMP 11/27/17 06:30 11/27/17 06:30 PATRICIA in setting of Liver failure Alcoholic Liver cirrhosis coagulopathy 2/2 chronic liver disease Acute on chronic anemia Thrombocytopenia Plan- daily weights salt restriction
[2017-11-28] MEDS: MAG HYDROX/ALH/SMC/DPHA/LIDO 240 ML MOUTHWASH MM SCH ×5 (00:35→23:12)
[2017-11-28] MEDS: oxyCODONE HCL 5 MG TABLET PO PRN ×3 (03:04→20:55)
[2017-11-28] MEDS: GABAPENTIN 300 MG CAPSULE (FP) PO SCH ×4 (06:15→23:11)
[2017-11-28 07:49] LABS: BASO % 0.8 % (0-2.0); EOS % 3.5 % (0-4.5); HEMATOCRIT 20.6 % (35.4-49); HEMOGLOBIN 7.6 GM/dL (11.7-16.9); LYMPH % 24.4 % (8-40); MCH 32.1 pg (25.7-33.7); MCHC 36.7 g/dl (32.0-35.9); MEAN CELL VOLUME 87.5 fl (80-96); MEAN PLT VOLUME 8.2 fl (7.5-11.1); NEUT % 57.3 % (42.8-82.8); RBC 2.35 M/mm3 (4.00-5.60); RDW 17.8 % (11.9-15.9); WHITE BLOOD COUNT 4.1 K/mm3 (4.0-10.0)
[2017-11-28 08:24] LABS: INR 2.96 (0.82-1.09); PROTHROMBIN TIME (PATIENT) 33.5 SEC (9.7-13.0)
[2017-11-28 08:34] LABS: ALBUMIN 3.9 g/dl (3.4-5.0); ANION GAP 5 (8-16); BLOOD UREA NITROGEN 29 mg/dL (7-18); CHLORIDE 101 mmol/L (98-107); CO2 30 mmol/L (21-32); CREATININE 1.7 mg/dL (0.7-1.3); GLUCOSE,RANDOM 119 mg/dL (74-106); SGOT/AST 51 U/L (15-37); SGPT/ALT < 6 U/L (12-78); SODIUM 136 mmol/L (136-145)
[2017-11-28 08:36] LABS: ALK PHOS 98 U/L (45-117); BILIRUBIN,TOTAL 5.5 mg/dL (0.2-1.0); TOT PROT 7.4 g/dl (6.4-8.2)
[2017-11-28 09:47] LABS: PLATELET COUNT 60 K/MM3 (134-434); PLATELET ESTIMATE DECREASED
[2017-11-28] MEDS ORDERED: PT OWN MED DRAWER 7, Y5N ONE (10:10)
[2017-11-28] MEDS: RIFAXIMIN 550 MG TABLET (UD) PO SCH ×2 (10:17→21:01)
[2017-11-28] MEDS: PANTOPRAZOLE 40 MG TABLET (FP) PO SCH (10:17)
[2017-11-28] MEDS: THIAMINE HCL 100 MG TABLET (FP) PO SCH (10:17)
[2017-11-28] MEDS: FOLIC ACID 1 MG TABLET (FP) PO SCH (10:17)
[2017-11-28] MEDS: FUROSEMIDE 40 MG TABLET (FP) PO SCH (10:17)
[2017-11-28] MEDS: CYANOCOBALAMIN (VITAMIN B-12) 100 MCG TABLET PO SCH (10:17)
[2017-11-28] MEDS: SILVER SULFADIAZINE 1% TOP CREAM 400 GM JAR TP SCH ×2 (10:18→21:01)
[2017-11-28] MEDS: CEFAZOLIN 2 GM/D5W 2 GM/50 ML ML IVPB SCH ×2 (10:18→21:01)
--- NOTE | 2017-11-28 13:29 | PN ---
Progress Note, Physician Chief Complaint: Weakness Chronic liver cirrhosis hepato-renal syndrome History of Present Illness: NAD, in chair ambulating independently worsening BLLE S/P Paracentesis - Current Medication List Current Medications: Active Medications Cyanocobalamin (Vitamin B12 -) 100 mcg PO DAILY [facility] Last Admin: 11/28/17 10:17 Dose: 100 mcg Folic Acid (Folic Acid -) 1 mg PO DAILY [facility] Last Admin: 11/28/17 10:17 Dose: 1 mg Furosemide (Lasix -) 40 mg PO DAILY [facility] Last Admin: 11/28/17 10:17 Dose: 40 mg Gabapentin (Neurontin -) 600 mg PO Q6HPO [facility] Last Admin: 11/28/17 11:27 Dose: 600 mg Hydroxyzine HCl (Atarax -) 50 mg PO Q6H PRN PRN Reason: ITCHING Last Admin: 11/27/17 23:51 Dose: 50 mg Cefazolin Sodium/Dextrose (Ancef 2 Gm Premixed Ivpb -) 2 gm in 50 mls @ 100 mls /hr IVPB BID [facility] Last Admin: 11/28/17 10:18 Dose: 100 mls/hr Lactulose (Cephulac (Oral Use)) 20 gm PO TID PRN PRN Reason: CONSTIPATION Lidocaine/Aluminum/Magnesium/Simeth (Magic Mouthwash *Sjr Formula* -) 5 ml MM Q6HPO [facility] Last Admin: 11/28/17 11:27 Dose: 5 ml Oxycodone HCl (Roxicodone -) 10 mg PO Q6H PRN PRN Reason: PAIN LEVEL 6-10 Last Admin: 11/28/17 10:17 Dose: 10 mg Pantoprazole Sodium (Protonix -) 40 mg PO DAILY [facility] Last Admin: 11/28/17 10:17 Dose: 40 mg Rifaximin (Xifaxan -) 550 mg PO BID [facility] Last Admin: 11/28/17 10:17 Dose: 550 mg Silver Sulfadiazine (Silvadene -) 1 applic TP BID [facility] Last Admin: 11/28/17 10:18 Dose: 1 applic Thiamine HCl (Vitamin B1 -) 100 mg PO DAILY [facility] Last Admin: 11/28/17 10:17 Dose: 100 mg Tramadol HCl (Ultram -) 50 mg PO Q8H PRN PRN Reason: PAIN LEVEL 1-5 Last Admin: 11/27/17 23:51 Dose: 50 mg - Objective Vital Signs: Vital Signs Temperature 97.3 F L 11/28/17 05:00 Pulse Rate 88 11/28/17 10:00 Respiratory Rate 18 11/28/17 10:00 Blood Pressure 134/76 11/28/17 10:00 O2 Sat by Pulse Oximetry (%) 97 11/28/17 10:00 Constitutional: Yes: Well Nourished, No Distress, Calm, Other (jaundiced) Cardiovascular: Yes: Regular Rate and Rhythm Respiratory: Yes: Regular Gastrointestinal: Yes: Normal Bowel Sounds, Soft, Abdomen, Obese, Ascites Musculoskeletal: Yes: Muscle Pain (BLL) Extremities: Yes: Erythema (BLL) Edema: Yes Edema: LLE: 3+, RLE: 3+ Peripheral Pulses WNL: Yes Neurological: Yes: Alert, Oriented Psychiatric: Yes: Alert, Oriented Labs: CBC, BMP 11/28/17 06:25 11/28/17 06:25 INR, PTT INR 2.96 (0.82-1.09) H D 11/28/17 06:25 Fibrinogen < 100.0 mg/dL (238-498) L* 11/28/17 07:00 Problem List - Problems (1) Anemia Assessment/Plan: -stable -Hematology consult -monitor trend -reverse INR if higher than 3.0 Code(s): D64.9 - ANEMIA, UNSPECIFIED Qualifiers: (2) Ascites due to alcoholic cirrhosis Assessment/Plan: -seen by nephrology and GI -albumin -furosemide PRN -S/P Paracentesis Code(s): K70.31 - ALCOHOLIC CIRRHOSIS OF LIVER WITH ASCITES (3) CHF (congestive heart failure) Assessment/Plan: -furosemide PRN -I&O -daily weights -CXR reviewed Code(s): I50.9 - HEART FAILURE, UNSPECIFIED (4) Liver cirrhosis Assessment/Plan: -GI consult -was seen by Dr Barajas when at [facility] Code(s): K74.60 - UNSPECIFIED CIRRHOSIS OF LIVER (5) Acute kidney injury Code(s): N17.9 - ACUTE KIDNEY FAILURE, UNSPECIFIED (6) Hepatorenal syndrome Code(s): K76.7 - HEPATORENAL SYNDROME (7) Sepsis Assessment/Plan: -Continu IV abx, as he was getting at home -Cefazolin 2 g BID -ID consult -UC/BC: Microbiology 11/23/17 20:15 Blood - Peripheral Venous Blood Culture - Preliminary NO GROWTH OBTAINED AFTER 72 HOURS, INCUBATION TO CONTINUE FOR 2 DAYS. 11/23/17 20:15 Blood - Peripheral Venous Blood Culture - Preliminary NO GROWTH OBTAINED AFTER 72 HOURS, INCUBATION TO CONTINUE FOR 2 DAYS. 11/24/17 00:50 Urine - Urine Clean Catch Urine Culture - Final NO GROWTH OBTAINED 11/25/17 02:20 Stool Clostridium difficile Antigen (MASTER) - Final 11/25/17 02:20 Stool Clostridium difficile Toxin Assay - Final Code(s): A41.9 - SEPSIS, UNSPECIFIED ORGANISM (8) Cellulitis Assessment/Plan: -BLL -On IV abx -silvadene -LENNOX bandage BLLE Code(s): L03.90 - CELLULITIS, UNSPECIFIED Qualifiers: Site of cellulitis: other site Qualified Code(s): L03.818 - Cellulitis of other sites Assessment/Plan see problem list
--- NOTE | 2017-11-28 13:57 | PN ---
GI Progress Note Subjective: GI NOte ( covering for Dr Glenn Craig) : Sitting up and eating. His is present and tells me that Carlos A has not had any alcohol since May but that he is no longer on the transplant list at [facility]. - Objective Vital Signs: Vital Signs Temperature 97.3 F L 11/28/17 05:00 Pulse Rate 88 11/28/17 10:00 Respiratory Rate 18 11/28/17 10:00 Blood Pressure 134/76 11/28/17 10:00 O2 Sat by Pulse Oximetry (%) 97 11/28/17 10:00 Laboratory Tests 11/25/17 11/25/17 11/26/17 05:35 05:35 06:30 Hgb 7.1 L 8.5 L D Plt Count Total Bilirubin 7.4 H AST 59 H ALT 6 L Alkaline Phosphatase 68 11/28/17 11/28/17 06:25 06:25 Hgb 7.6 L Plt Count 60 L Total Bilirubin 5.5 H D AST 51 H ALT < 6 L Alkaline Phosphatase 98 D Constitutional: Calm Eyes: Yes: Sclera Icterus Gastrointestinal Inspection: Yes: Distention ...Auscultate: Yes: Normoactive Bowel Sounds ...Palpate: Yes: Soft, Other (nontender) Edema: LUE: 4+, RUE: 4+ Labs: CBC, BMP 11/28/17 06:25 11/28/17 06:25 INR, PTT INR 2.96 (0.82-1.09) H D 11/28/17 06:25 Fibrinogen < 100.0 mg/dL (238-498) L* 11/28/17 07:00 Assessment/Plan Cirrhosis with improving jaundice and hepatic encephalopathy. Still has major leg edema. Dr Craig will return tomorrow.
--- NOTE | 2017-11-28 15:03 | PN ---
Progress Note (short form) - Note Progress Note: covering dr hester Alcoholic liver cirrhosis h/o Hepato-renal syndrome s/p hosp at [facility] for Ascities/SBP/Catheter associated bacteremia admitted with AMS CKD Cr of 1.8. Current Medications Cyanocobalamin (Vitamin B12 -) 100 mcg PO DAILY [facility] Last Admin: 11/28/17 10:17 Dose: 100 mcg Folic Acid (Folic Acid -) 1 mg PO DAILY [facility] Last Admin: 11/28/17 10:17 Dose: 1 mg Furosemide (Lasix -) 40 mg PO DAILY [facility] Last Admin: 11/28/17 10:17 Dose: 40 mg Gabapentin (Neurontin -) 600 mg PO Q6HPO [facility] Last Admin: 11/28/17 11:27 Dose: 600 mg Hydroxyzine HCl (Atarax -) 50 mg PO Q6H PRN PRN Reason: ITCHING Last Admin: 11/27/17 23:51 Dose: 50 mg Cefazolin Sodium/Dextrose (Ancef 2 Gm Premixed Ivpb -) 2 gm in 50 mls @ 100 mls /hr IVPB BID [facility] Last Admin: 11/28/17 10:18 Dose: 100 mls/hr Lactulose (Cephulac (Oral Use)) 20 gm PO TID PRN PRN Reason: CONSTIPATION Lidocaine/Aluminum/Magnesium/Simeth (Magic Mouthwash *Sjr Formula* -) 5 ml MM Q6HPO [facility] Last Admin: 11/28/17 11:27 Dose: 5 ml Oxycodone HCl (Roxicodone -) 10 mg PO Q6H PRN PRN Reason: PAIN LEVEL 6-10 Last Admin: 11/28/17 10:17 Dose: 10 mg Pantoprazole Sodium (Protonix -) 40 mg PO DAILY [facility] Last Admin: 11/28/17 10:17 Dose: 40 mg Rifaximin (Xifaxan -) 550 mg PO BID [facility] Last Admin: 11/28/17 10:17 Dose: 550 mg Silver Sulfadiazine (Silvadene -) 1 applic TP BID [facility] Last Admin: 11/28/17 10:18 Dose: 1 applic Thiamine HCl (Vitamin B1 -) 100 mg PO DAILY [facility] Last Admin: 11/28/17 10:17 Dose: 100 mg Tramadol HCl (Ultram -) 50 mg PO Q8H PRN PRN Reason: PAIN LEVEL 1-5 Last Admin: 11/27/17 23:51 Dose: 50 mg Last Vital Signs Temp Pulse Resp BP Pulse Ox 97.3 F L 88 18 134/76 97 11/28/17 05:00 11/28/17 10:00 11/28/17 10:00 11/28/17 10:00 11/28/17 10:00 sclerae icteric Lungs clear Heart reg Abd distended but soft, nontender Ext moderate to severe stasis edema CBC, BMP 11/28/17 06:25 11/28/17 06:25 CBC, BMP 11/27/17 06:30 11/27/17 06:30 PATRICIA and chronic liver Disease Alcoholic Liver cirrhosis coagulopathy 2/2 chronic liver disease Acute on chronic anemia Thrombocytopenia Plan- daily weights salt restriction
[2017-11-28] MEDS: traMADol HCL 50 MG TABLET PO PRN (17:33)
[2017-11-28] MEDS: LYTES/YERBA SANTA 240 ML BOTTLE MM SCH (21:33)
[2017-11-29] MEDS: hydrOXYzine HCL 25 MG TABLET (FP) PO PRN ×2 (01:45→22:32)
[2017-11-29] MEDS: traMADol HCL 50 MG TABLET PO PRN ×3 (01:45→17:59)
[2017-11-29] MEDS: GABAPENTIN 300 MG CAPSULE (FP) PO SCH ×3 (05:40→17:57)
[2017-11-29] MEDS: oxyCODONE HCL 5 MG TABLET PO PRN ×3 (05:41→22:25)
[2017-11-29] MEDS: MAG HYDROX/ALH/SMC/DPHA/LIDO 240 ML MOUTHWASH MM SCH ×3 (05:41→17:56)
[2017-11-29 06:49] LABS: BASO % 0.6 % (0-2.0); EOS % 3.1 % (0-4.5); HEMOGLOBIN 7.5 GM/dL (11.7-16.9); LYMPH % 20.4 % (8-40); MCH 31.6 pg (25.7-33.7); MCHC 35.5 g/dl (32.0-35.9); MEAN CELL VOLUME 88.9 fl (80-96); MEAN PLT VOLUME 8.4 fl (7.5-11.1); MONO % 12.9 % (3.8-10.2); RBC 2.36 M/mm3 (4.00-5.60); RDW 17.6 % (11.9-15.9); WHITE BLOOD COUNT 5.1 K/mm3 (4.0-10.0)
[2017-11-29 07:14] LABS: INR 2.88 (0.82-1.09); PROTHROMBIN TIME (PATIENT) 32.6 SEC (9.7-13.0)
[2017-11-29 07:20] LABS: ALBUMIN 4.1 g/dl (3.4-5.0); ANION GAP 7 (8-16); BLOOD UREA NITROGEN 28 mg/dL (7-18); CALCIUM 9.3 mg/dL (8.5-10.1); CHLORIDE 100 mmol/L (98-107); CO2 30 mmol/L (21-32); GLUCOSE,RANDOM 137 mg/dL (74-106); POTASSIUM 4.5 mmol/L (3.5-5.1); SODIUM 137 mmol/L (136-145)
[2017-11-29 07:25] LABS: ALK PHOS 88 U/L (45-117); BILIRUBIN,TOTAL 5.2 mg/dL (0.2-1.0); CREATININE 1.7 mg/dL (0.7-1.3); SGOT/AST 57 U/L (15-37); SGPT/ALT 7 U/L (12-78); TOT PROT 7.5 g/dl (6.4-8.2)
[2017-11-29] MEDS ORDERED: PT OWN MED DRAWER 7, Y5N ONE ×3 (08:32→22:23)
[2017-11-29] MEDS: PANTOPRAZOLE 40 MG TABLET (FP) PO SCH (09:34)
[2017-11-29] MEDS: FUROSEMIDE 40 MG TABLET (FP) PO SCH (09:34)
[2017-11-29] MEDS: CYANOCOBALAMIN (VITAMIN B-12) 100 MCG TABLET PO SCH (09:34)
[2017-11-29] MEDS: CEFAZOLIN 2 GM/D5W 2 GM/50 ML ML IVPB SCH ×2 (09:34→22:27)
[2017-11-29] MEDS: SILVER SULFADIAZINE 1% TOP CREAM 400 GM JAR TP SCH ×2 (09:34→22:29)
[2017-11-29] MEDS: FOLIC ACID 1 MG TABLET (FP) PO SCH (09:34)
[2017-11-29] MEDS: THIAMINE HCL 100 MG TABLET (FP) PO SCH (09:34)
[2017-11-29] MEDS: RIFAXIMIN 550 MG TABLET (UD) PO SCH ×2 (09:35→22:27)
--- NOTE | 2017-11-29 10:01 | PN ---
Progress Note, Physician History of Present Illness: Talkative. Awake, alert, jaundiced. Clinically the same. - Current Medication List Current Medications: Active Medications Cyanocobalamin (Vitamin B12 -) 100 mcg PO DAILY [facility] Last Admin: 11/29/17 09:34 Dose: 100 mcg Folic Acid (Folic Acid -) 1 mg PO DAILY [facility] Last Admin: 11/29/17 09:34 Dose: 1 mg Furosemide (Lasix -) 40 mg PO DAILY [facility] Last Admin: 11/29/17 09:34 Dose: 40 mg Gabapentin (Neurontin -) 600 mg PO Q6HPO [facility] Last Admin: 11/29/17 05:40 Dose: 600 mg Hydroxyzine HCl (Atarax -) 50 mg PO Q6H PRN PRN Reason: ITCHING Last Admin: 11/29/17 01:45 Dose: 50 mg Cefazolin Sodium/Dextrose (Ancef 2 Gm Premixed Ivpb -) 2 gm in 50 mls @ 100 mls /hr IVPB BID [facility] Last Admin: 11/29/17 09:34 Dose: 100 mls/hr Lactulose (Cephulac (Oral Use)) 20 gm PO TID PRN PRN Reason: CONSTIPATION Last Admin: 11/28/17 11:00 Dose: 20 gm Lidocaine/Aluminum/Magnesium/Simeth (Magic Mouthwash *Sjr Formula* -) 5 ml MM Q6HPO [facility] Last Admin: 11/29/17 05:41 Dose: 5 ml Oxycodone HCl (Roxicodone -) 10 mg PO Q6H PRN PRN Reason: PAIN LEVEL 6-10 Last Admin: 11/29/17 05:41 Dose: 10 mg Pantoprazole Sodium (Protonix -) 40 mg PO DAILY [facility] Last Admin: 11/29/17 09:34 Dose: 40 mg Rifaximin (Xifaxan -) 550 mg PO BID [facility] Last Admin: 11/29/17 09:35 Dose: 550 mg Saliva Substitute (Mouthkote Solution -) 1 applic MM BID [facility] Last Admin: 11/28/17 21:33 Dose: 1 applic Silver Sulfadiazine (Silvadene -) 1 applic TP BID [facility] Last Admin: 11/29/17 09:34 Dose: 1 applic Thiamine HCl (Vitamin B1 -) 100 mg PO DAILY [facility] Last Admin: 11/29/17 09:34 Dose: 100 mg Tramadol HCl (Ultram -) 50 mg PO Q8H PRN PRN Reason: PAIN LEVEL 1-5 Last Admin: 11/29/17 09:36 Dose: 50 mg - Objective Vital Signs: Vital Signs Temperature 97.5 F L 11/29/17 05:49 Pulse Rate 91 H 11/29/17 05:49 Respiratory Rate 16 11/29/17 05:49 Blood Pressure 132/73 11/29/17 05:49 O2 Sat by Pulse Oximetry (%) 94 L 11/28/17 21:00 Eyes: Yes: Sclera Icterus HENT: Yes: Other ( Mucositis) Neurological: Yes: Alert, Oriented, Other ( grade 1-2 encephalopathy) Labs: CBC, BMP 11/29/17 06:26 11/29/17 06:26 INR, PTT INR 2.88 (0.82-1.09) H 11/29/17 06:26 Fibrinogen < 100.0 mg/dL (238-498) L* 11/28/17 07:00 Laboratory Last Values WBC 5.1 K/mm3 (4.0-10.0) 11/29/17 06:26 RBC 2.36 M/mm3 (4.00-5.60) L 11/29/17 06:26 Hgb 7.5 GM/dL (11.7-16.9) L 11/29/17 06:26 Hct 21.0 % (35.4-49) L 11/29/17 06:26 MCV 88.9 fl (80-96) 11/29/17 06:26 MCH 31.6 pg (25.7-33.7) 11/29/17 06:26 MCHC 35.5 g/dl (32.0-35.9) 11/29/17 06:26 RDW 17.6 % (11.9-15.9) H 11/29/17 06:26 Plt Count 60 K/MM3 (134-434) L 11/28/17 06:25 MPV 8.4 fl (7.5-11.1) 11/29/17 06:26 Neutrophils % 63.0 % (42.8-82.8) 11/29/17 06:26 Lymphocytes % 20.4 % (8-40) 11/29/17 06:26 Monocytes % 12.9 % (3.8-10.2) H 11/29/17 06:26 Eosinophils % 3.1 % (0-4.5) 11/29/17 06:26 Basophils % 0.6 % (0-2.0) 11/29/17 06:26 Platelet Estimate Decreased 11/28/17 06:25 Platelet Comment No clumping noted 11/28/17 06:25 PT with INR 32.60 SEC (9.7-13.0) H 11/29/17 06:26 INR 2.88 (0.82-1.09) H 11/29/17 06:26 Fibrinogen < 100.0 mg/dL (238-498) L* 11/28/17 07:00 Sodium 137 mmol/L (136-145) 11/29/17 06:26 Potassium 4.5 mmol/L (3.5-5.1) 11/29/17 06:26 Chloride 100 mmol/L (98-107) 11/29/17 06:26 Carbon Dioxide 30 mmol/L (21-32) 11/29/17 06:26 Anion Gap 7 (8-16) L 11/29/17 06:26 BUN 28 mg/dL (7-18) H 11/29/17 06:26 Creatinine 1.7 mg/dL (0.7-1.3) H 11/29/17 06:26 Creat Clearance w eGFR 42.21 (>60) 11/29/17 06:26 Random Glucose 137 mg/dL (74-106) H 11/29/17 06:26 Calcium 9.3 mg/dL (8.5-10.1) 11/29/17 06:26 Phosphorus 2.7 mg/dL (2.5-4.9) 11/26/17 06:30 Magnesium 1.8 mg/dL (1.8-2.4) 11/26/17 06:30 Iron 111 ug/dL (38-169) 11/24/17 06:08 TIBC < 128 ug/dL (250-450) L 11/24/17 06:08 Iron Saturation > 87 % (15-55) H 11/24/17 06:08 Ferritin 2868.722 ng/ml (16.4-293.9) H 11/24/17 06:08 Total Bilirubin 5.2 mg/dL (0.2-1.0) H 11/29/17 06:26 Direct Bilirubin 2.3 mg/dL (0.0-0.2) H 11/23/17 23:40 AST 57 U/L (15-37) H 11/29/17 06:26 ALT 7 U/L (12-78) L 11/29/17 06:26 Alkaline Phosphatase 88 U/L (45-117) 11/29/17 06:26 Ammonia < 10.0 umol/L (11-32) L 11/23/17 20:32 Creatine Kinase 24 IU/L (39-308) L 11/23/17 20:38 Troponin I 0.03 ng/ml (0.00-0.05) D 11/23/17 20:38 B-Natriuretic Peptide 7258.68 pg/ml (5-125) H 11/23/17 20:38 Total Protein 7.5 g/dl (6.4-8.2) 11/29/17 06:26 Albumin 4.1 g/dl (3.4-5.0) 11/29/17 06:26 Lipase 85 U/L (73-393) 11/23/17 20:38 Urine Color Straw 11/24/17 00:50 Urine Appearance Clear 11/24/17 00:50 Urine pH 7.0 (5.0-8.0) D 11/24/17 00:50 Ur Specific [place] 1.004 (1.001-1.035) 11/24/17 00:50 Urine Protein Negative (NEGATIVE) 11/24/17 00:50 Urine Glucose (UA) Negative (NEGATIVE) 11/24/17 00:50 Urine Ketones Negative (NEGATIVE) 11/24/17 00:50 Urine Blood Negative (NEGATIVE) 11/24/17 00:50 Urine Nitrite Negative (NEGATIVE) 11/24/17 00:50 Urine Bilirubin Negative (<2.0 mg/dL) 11/24/17 00:50 Urine Urobilinogen Negative mg/dL (0.2-1.0) 11/24/17 00:50 Ur Leukocyte Esterase Negative (NEGATIVE) 11/24/17 00:50 Peritoneal WBC 162 /mm3 11/26/17 16:30 Peritoneal RBC 789 /mm3 11/26/17 16:30 Periton Neutrophils 5 % 11/26/17 16:30 Periton Mesothelial 95 % 11/26/17 16:30 Peritoneal Tot Protein 3 gm/dL 11/26/17 16:30 Peritoneal Albumin 2 g/dL 11/26/17 16:30 Peritoneal LDH 65 IU/L 11/26/17 16:30 Peritoneal Glucose 142 mg/dL 11/26/17 16:30 Peritoneal Amylase 9 U/L 11/26/17 16:30 Peritoneal Triglycerid 41 mg/dL 11/26/17 16:30 Stool Occult Blood Positive (NEGATIVE) 11/25/17 02:20 Acetone, Qual Negative (NEGATIVE) 11/23/17 20:38 Blood Type O POSITIVE 11/23/17 20:38 Antibody Screen Negative 11/23/17 20:38 Crossmatch See Detail 11/23/17 20:38 Problem List - Problems (1) Encephalopathy Code(s): G93.40 - ENCEPHALOPATHY, UNSPECIFIED (2) Ascites due to alcoholic cirrhosis Code(s): K70.31 - ALCOHOLIC CIRRHOSIS OF LIVER WITH ASCITES (3) Liver cirrhosis Code(s): K74.60 - UNSPECIFIED CIRRHOSIS OF LIVER (4) Alcoholic cirrhosis Code(s): K70.30 - ALCOHOLIC CIRRHOSIS OF LIVER WITHOUT ASCITES Qualifiers: Ascites presence: with ascites Qualified Code(s): K70.31 - Alcoholic cirrhosis of liver with ascites Assessment/Plan Aldactone 50 mg by mouth twice a day. Daily CBC, CMP, PT/INR, direct bili. Continue with lactulose and rifaximine, lasix.
[2017-11-29] MEDS: LYTES/YERBA SANTA 240 ML BOTTLE MM SCH ×2 (10:57→22:28)
[2017-11-29] MEDS: SPIRONOLACTONE 25 MG TABLET (FP) PO SCH ×2 (11:05→22:27)
[2017-11-29 11:35] LABS: PLATELET COUNT 67 K/MM3 (134-434); PLATELET ESTIMATE DECREASED
--- NOTE | 2017-11-29 14:37 | PN ---
Progress Note, Physician Chief Complaint: AWAKE ALERT COMFORTABLE DENIES FEVERS OR CHILLS - Current Medication List Current Medications: Active Medications Cyanocobalamin (Vitamin B12 -) 100 mcg PO DAILY [facility] Last Admin: 11/29/17 09:34 Dose: 100 mcg Folic Acid (Folic Acid -) 1 mg PO DAILY [facility] Last Admin: 11/29/17 09:34 Dose: 1 mg Furosemide (Lasix -) 40 mg PO DAILY [facility] Last Admin: 11/29/17 09:34 Dose: 40 mg Gabapentin (Neurontin -) 600 mg PO Q6HPO [facility] Last Admin: 11/29/17 12:05 Dose: 600 mg Hydroxyzine HCl (Atarax -) 50 mg PO Q6H PRN PRN Reason: ITCHING Last Admin: 11/29/17 01:45 Dose: 50 mg Cefazolin Sodium/Dextrose (Ancef 2 Gm Premixed Ivpb -) 2 gm in 50 mls @ 100 mls /hr IVPB BID [facility] Last Admin: 11/29/17 09:34 Dose: 100 mls/hr Lactulose (Cephulac (Oral Use)) 20 gm PO TID PRN PRN Reason: CONSTIPATION Last Admin: 11/28/17 11:00 Dose: 20 gm Lidocaine/Aluminum/Magnesium/Simeth (Magic Mouthwash *Sjr Formula* -) 5 ml MM Q6HPO [facility] Last Admin: 11/29/17 13:40 Dose: 5 ml Oxycodone HCl (Roxicodone -) 10 mg PO Q6H PRN PRN Reason: PAIN LEVEL 6-10 Last Admin: 11/29/17 05:41 Dose: 10 mg Pantoprazole Sodium (Protonix -) 40 mg PO DAILY [facility] Last Admin: 11/29/17 09:34 Dose: 40 mg Rifaximin (Xifaxan -) 550 mg PO BID [facility] Last Admin: 11/29/17 09:35 Dose: 550 mg Saliva Substitute (Mouthkote Solution -) 1 applic MM BID [facility] Last Admin: 11/28/17 21:33 Dose: 1 applic Silver Sulfadiazine (Silvadene -) 1 applic TP BID [facility] Last Admin: 11/29/17 09:34 Dose: 1 applic Spironolactone (Aldactone -) 50 mg PO BID [facility] Last Admin: 11/29/17 11:05 Dose: 50 mg Thiamine HCl (Vitamin B1 -) 100 mg PO DAILY [facility] Last Admin: 11/29/17 09:34 Dose: 100 mg Tramadol HCl (Ultram -) 50 mg PO Q8H PRN PRN Reason: PAIN LEVEL 1-5 Last Admin: 11/29/17 09:36 Dose: 50 mg - Objective Vital Signs: Vital Signs Temperature 98.3 F 11/29/17 13:28 Pulse Rate 88 11/29/17 13:28 Respiratory Rate 16 11/29/17 13:28 Blood Pressure 134/76 11/29/17 13:28 O2 Sat by Pulse Oximetry (%) 94 L 11/28/17 21:00 Constitutional: Yes: Mild Distress Eyes: Yes: Sclera Icterus HENT: Yes: WNL Neck: Yes: WNL Cardiovascular: Yes: WNL Respiratory: Yes: WNL Gastrointestinal: Yes: Ascites, Distention ...Rectal Exam: Yes: WNL Genitourinary: Yes: WNL Musculoskeletal: Yes: Muscle Pain Extremities: Yes: WNL Edema: Yes Peripheral Pulses WNL: Yes Integumentary: Yes: Erythema, Jaundice, Rash, Venous Stasis Changes Wound/Incision: Yes: Dressing Dry and Intact ...Motor Strength: WNL Psychiatric: Yes: WNL Labs: CBC, BMP 11/29/17 06:26 11/29/17 06:26 INR, PTT INR 2.88 (0.82-1.09) H 11/29/17 06:26 Fibrinogen < 100.0 mg/dL (238-498) L* 11/28/17 07:00 Problem List - Problems (1) Anemia Code(s): D64.9 - ANEMIA, UNSPECIFIED Qualifiers: (2) Ascites due to alcoholic cirrhosis Code(s): K70.31 - ALCOHOLIC CIRRHOSIS OF LIVER WITH ASCITES (3) CHF (congestive heart failure) Code(s): I50.9 - HEART FAILURE, UNSPECIFIED (4) Encephalopathy Code(s): G93.40 - ENCEPHALOPATHY, UNSPECIFIED (5) Liver cirrhosis Code(s): K74.60 - UNSPECIFIED CIRRHOSIS OF LIVER (6) Acute kidney injury Code(s): N17.9 - ACUTE KIDNEY FAILURE, UNSPECIFIED (7) Alcohol abuse Code(s): F10.10 - ALCOHOL ABUSE, UNCOMPLICATED (8) Alcohol dependence with uncomplicated withdrawal Code(s): F10.230 - ALCOHOL DEPENDENCE WITH WITHDRAWAL, UNCOMPLICATED (9) Alcoholic cirrhosis Code(s): K70.30 - ALCOHOLIC CIRRHOSIS OF LIVER WITHOUT ASCITES Qualifiers: Ascites presence: with ascites Qualified Code(s): K70.31 - Alcoholic cirrhosis of liver with ascites (10) Bleeding Code(s): R58 - HEMORRHAGE, NOT ELSEWHERE CLASSIFIED (11) Cellulitis Code(s): L03.90 - CELLULITIS, UNSPECIFIED Qualifiers: Site of cellulitis: other site Qualified Code(s): L03.818 - Cellulitis of other sites (12) Stomatitis and mucositis Code(s): K12.1 - OTHER FORMS OF STOMATITIS; K12.30 - ORAL MUCOSITIS (ULCERATIVE) , UNSPECIFIED (13) Epistaxis not due to trauma Code(s): R04.0 - EPISTAXIS Assessment/Plan ASCITES PARACENTESIS PER GI PAIN CONTROL ANEMIA MAY NEED TRANSFUSIONS CHECK CBC IN AM HEPATOLOGY WORKUP FOR LIVER TRANSPLANT OOB TO CHAIR ENCEPHALOPATHY STABLE
[2017-11-30] MEDS: traMADol HCL 50 MG TABLET PO PRN ×3 (01:03→21:39)
[2017-11-30] MEDS: GABAPENTIN 300 MG CAPSULE (FP) PO SCH ×4 (01:04→17:20)
[2017-11-30] MEDS: MAG HYDROX/ALH/SMC/DPHA/LIDO 240 ML MOUTHWASH MM SCH ×4 (01:04→17:20)
[2017-11-30] MEDS: oxyCODONE HCL 5 MG TABLET PO PRN ×2 (06:00→17:20)
[2017-11-30 07:47] LABS: ALBUMIN 3.9 g/dl (3.4-5.0); ANION GAP 11 (8-16); BLOOD UREA NITROGEN 29 mg/dL (7-18); CALCIUM 9.5 mg/dL (8.5-10.1); CHLORIDE 99 mmol/L (98-107); CO2 28 mmol/L (21-32); GLUCOSE,RANDOM 125 mg/dL (74-106); POTASSIUM 4.1 mmol/L (3.5-5.1); SGOT/AST 52 U/L (15-37); SGPT/ALT < 6 U/L (12-78); SODIUM 138 mmol/L (136-145)
[2017-11-30 07:51] LABS: ALK PHOS 91 U/L (45-117); BILIRUBIN,TOTAL 5.3 mg/dL (0.2-1.0); CREATININE 1.6 mg/dL (0.7-1.3); TOT PROT 7.5 g/dl (6.4-8.2)
[2017-11-30 07:54] LABS: BASO % 0.5 % (0-2.0); EOS % 2.4 % (0-4.5); HEMATOCRIT 20.2 % (35.4-49); HEMOGLOBIN 7.2 GM/dL (11.7-16.9); LYMPH % 19.1 % (8-40); MCH 31.3 pg (25.7-33.7); MCHC 35.7 g/dl (32.0-35.9); MEAN CELL VOLUME 87.6 fl (80-96); MEAN PLT VOLUME 8.4 fl (7.5-11.1); MONO % 11.5 % (3.8-10.2); NEUT % 66.5 % (42.8-82.8); PLATELET COUNT 67 K/MM3 (134-434); RBC 2.31 M/mm3 (4.00-5.60); RDW 17.6 % (11.9-15.9); WHITE BLOOD COUNT 6.7 K/mm3 (4.0-10.0)
[2017-11-30 08:07] LABS: INR 2.91 (0.82-1.09); PROTHROMBIN TIME (PATIENT) 32.9 SEC (9.7-13.0)
[2017-11-30] MEDS ORDERED: PT OWN MED DRAWER 7, Y5N ONE ×2 (08:57→21:33)
[2017-11-30] MEDS: THIAMINE HCL 100 MG TABLET (FP) PO SCH (09:27)
[2017-11-30] MEDS: SPIRONOLACTONE 25 MG TABLET (FP) PO SCH ×2 (09:27→21:40)
[2017-11-30] MEDS: RIFAXIMIN 550 MG TABLET (UD) PO SCH ×2 (09:28→21:40)
[2017-11-30] MEDS: PANTOPRAZOLE 40 MG TABLET (FP) PO SCH (09:28)
[2017-11-30] MEDS: FOLIC ACID 1 MG TABLET (FP) PO SCH (09:28)
[2017-11-30] MEDS: FUROSEMIDE 40 MG TABLET (FP) PO SCH (09:28)
[2017-11-30] MEDS: SILVER SULFADIAZINE 1% TOP CREAM 400 GM JAR TP SCH ×2 (09:29→21:44)
[2017-11-30] MEDS: LYTES/YERBA SANTA 240 ML BOTTLE MM SCH ×2 (09:30→21:45)
[2017-11-30] MEDS: CEFAZOLIN 2 GM/D5W 2 GM/50 ML ML IVPB SCH ×2 (09:30→21:41)
[2017-11-30 09:56] LABS: PLATELET ESTIMATE DECREASED
[2017-11-30] MEDS: CYANOCOBALAMIN (VITAMIN B-12) 100 MCG TABLET PO SCH (10:01)
[2017-11-30 10:23] LABS: HEMATOCRIT 21.6 % (35.4-49); HEMOGLOBIN 7.7 GM/dL (11.7-16.9); MCH 31.4 pg (25.7-33.7); MCHC 35.5 g/dl (32.0-35.9); MEAN CELL VOLUME 88.4 fl (80-96); MEAN PLT VOLUME 7.9 fl (7.5-11.1); PLATELET COUNT 73 K/MM3 (134-434); RBC 2.44 M/mm3 (4.00-5.60); RDW 17.6 % (11.9-15.9); WHITE BLOOD COUNT 7.3 K/mm3 (4.0-10.0)
[2017-11-30 10:37] LABS: INR 2.86 (0.82-1.09); PROTHROMBIN TIME (PATIENT) 32.3 SEC (9.7-13.0)
[2017-11-30 11:13] LABS: CHLORIDE 99 mmol/L (98-107); POTASSIUM 4.1 mmol/L (3.5-5.1); SODIUM 135 mmol/L (136-145)
[2017-11-30 11:26] LABS: ALBUMIN 4.1 g/dl (3.4-5.0); ALK PHOS 98 U/L (45-117); ANION GAP 6 (8-16); BILIRUBIN,DIRECT 2.2 mg/dL (0.0-0.2); BILIRUBIN,TOTAL 5.7 mg/dL (0.2-1.0); BLOOD UREA NITROGEN 29 mg/dL (7-18); CALCIUM 9.2 mg/dL (8.5-10.1); CO2 30 mmol/L (21-32); CREATININE 1.7 mg/dL (0.7-1.3); GLUCOSE,RANDOM 170 mg/dL (74-106); SGOT/AST 55 U/L (15-37); SGPT/ALT 6 U/L (12-78); TOT PROT 8.1 g/dl (6.4-8.2)
--- NOTE | 2017-11-30 14:01 | PN ---
Progress Note, Physician Chief Complaint: awake alert in bed has no complaints - Current Medication List Current Medications: Active Medications Cyanocobalamin (Vitamin B12 -) 100 mcg PO DAILY [facility] Last Admin: 11/30/17 10:01 Dose: 100 mcg Folic Acid (Folic Acid -) 1 mg PO DAILY [facility] Last Admin: 11/30/17 09:28 Dose: 1 mg Furosemide (Lasix -) 40 mg PO DAILY [facility] Last Admin: 11/30/17 09:28 Dose: 40 mg Gabapentin (Neurontin -) 600 mg PO Q6HPO [facility] Last Admin: 11/30/17 11:40 Dose: 600 mg Hydroxyzine HCl (Atarax -) 50 mg PO Q6H PRN PRN Reason: ITCHING Last Admin: 11/29/17 22:32 Dose: 50 mg Cefazolin Sodium/Dextrose (Ancef 2 Gm Premixed Ivpb -) 2 gm in 50 mls @ 100 mls /hr IVPB BID [facility] Last Admin: 11/30/17 09:30 Dose: 100 mls/hr Lactulose (Cephulac (Oral Use)) 20 gm PO TID PRN PRN Reason: CONSTIPATION Last Admin: 11/28/17 11:00 Dose: 20 gm Lidocaine/Aluminum/Magnesium/Simeth (Magic Mouthwash *Sjr Formula* -) 5 ml MM Q6HPO [facility] Last Admin: 11/30/17 11:40 Dose: 5 ml Oxycodone HCl (Roxicodone -) 10 mg PO Q6H PRN PRN Reason: PAIN LEVEL 6-10 Last Admin: 11/30/17 06:00 Dose: 10 mg Pantoprazole Sodium (Protonix -) 40 mg PO DAILY [facility] Last Admin: 11/30/17 09:28 Dose: 40 mg Rifaximin (Xifaxan -) 550 mg PO BID [facility] Last Admin: 11/30/17 09:28 Dose: 550 mg Saliva Substitute (Mouthkote Solution -) 1 applic MM BID [facility] Last Admin: 11/30/17 09:30 Dose: 1 applic Silver Sulfadiazine (Silvadene -) 1 applic TP BID [facility] Last Admin: 11/30/17 09:29 Dose: Not Given Spironolactone (Aldactone -) 50 mg PO BID [facility] Last Admin: 11/30/17 09:27 Dose: 50 mg Thiamine HCl (Vitamin B1 -) 100 mg PO DAILY [facility] Last Admin: 11/30/17 09:27 Dose: 100 mg Tramadol HCl (Ultram -) 50 mg PO Q8H PRN PRN Reason: PAIN LEVEL 1-5 Last Admin: 11/30/17 09:27 Dose: 50 mg - Objective Vital Signs: Vital Signs Temperature 97.5 F L 11/30/17 09:00 Pulse Rate 92 H 11/30/17 09:00 Respiratory Rate 20 11/30/17 09:00 Blood Pressure 124/76 11/30/17 09:00 O2 Sat by Pulse Oximetry (%) 93 L 11/30/17 09:00 Constitutional: Yes: No Distress Eyes: Yes: WNL HENT: Yes: WNL Neck: Yes: WNL Cardiovascular: Yes: WNL Respiratory: Yes: WNL Gastrointestinal: Yes: Ascites Genitourinary: Yes: WNL Musculoskeletal: Yes: WNL Extremities: Yes: WNL Edema: Yes Peripheral Pulses WNL: Yes Integumentary: Yes: Rash, Venous Stasis Changes Wound/Incision: Yes: Dressing Dry and Intact Neurological: Yes: WNL ...Motor Strength: WNL Psychiatric: Yes: WNL Labs: CBC, BMP 11/30/17 10:15 11/30/17 10:15 INR, PTT INR 2.86 (0.82-1.09) H 11/30/17 10:15 Fibrinogen < 100.0 mg/dL (238-498) L* 11/28/17 07:00 Problem List - Problems (1) Anemia Code(s): D64.9 - ANEMIA, UNSPECIFIED Qualifiers: (2) Ascites due to alcoholic cirrhosis Code(s): K70.31 - ALCOHOLIC CIRRHOSIS OF LIVER WITH ASCITES (3) CHF (congestive heart failure) Code(s): I50.9 - HEART FAILURE, UNSPECIFIED (4) Encephalopathy Code(s): G93.40 - ENCEPHALOPATHY, UNSPECIFIED (5) Liver cirrhosis Code(s): K74.60 - UNSPECIFIED CIRRHOSIS OF LIVER (6) Acute kidney injury Code(s): N17.9 - ACUTE KIDNEY FAILURE, UNSPECIFIED (7) Alcohol abuse Code(s): F10.10 - ALCOHOL ABUSE, UNCOMPLICATED (8) Alcohol dependence with uncomplicated withdrawal Code(s): F10.230 - ALCOHOL DEPENDENCE WITH WITHDRAWAL, UNCOMPLICATED (9) Alcoholic cirrhosis Code(s): K70.30 - ALCOHOLIC CIRRHOSIS OF LIVER WITHOUT ASCITES Qualifiers: Ascites presence: with ascites Qualified Code(s): K70.31 - Alcoholic cirrhosis of liver with ascites (10) Bleeding Code(s): R58 - HEMORRHAGE, NOT ELSEWHERE CLASSIFIED (11) Cellulitis Code(s): L03.90 - CELLULITIS, UNSPECIFIED Qualifiers: Site of cellulitis: other site Qualified Code(s): L03.818 - Cellulitis of other sites (12) Stomatitis and mucositis Code(s): K12.1 - OTHER FORMS OF STOMATITIS; K12.30 - ORAL MUCOSITIS (ULCERATIVE) , UNSPECIFIED (13) Epistaxis not due to trauma Code(s): R04.0 - EPISTAXIS Assessment/Plan ASCITES PARACENTESIS PER GI PAIN CONTROL ANEMIA MAY NEED TRANSFUSIONS CHECK CBC IN AM HEPATOLOGY WORKUP FOR LIVER TRANSPLANT OOB TO CHAIR ENCEPHALOPATHY STABLE
--- NOTE | 2017-11-30 14:45 | PN ---
Progress Note (short form) - Note Progress Note: Renal follow up for PATRICIA on CKD Pt seen and examined at the bedside awake and alert no acute complaints legs are wrapped denies any sob, chest pain, abd pain leg remain swollen Vital Signs Temperature 97.5 F L 11/30/17 09:00 Pulse Rate 92 H 11/30/17 09:00 Respiratory Rate 20 11/30/17 09:00 Blood Pressure 124/76 11/30/17 09:00 O2 Sat by Pulse Oximetry (%) 93 L 11/30/17 09:00 Intake & Output 11/27/17 11/28/17 11/29/17 11/30/17 23:59 23:59 23:59 23:59 Intake Total 820 730 700 500 Balance 820 730 700 500 Weight 92.261 kg NAD, awake and alert no JVD, neck supple RRR, No M/R CTA Obese, + ascities, no tenderness Trace sacral edema, 1+ LE edema No bladder distension CBC, BMP 11/30/17 10:15 11/30/17 10:15 Current Medications Cyanocobalamin (Vitamin B12 -) 100 mcg PO DAILY [facility] Last Admin: 11/30/17 10:01 Dose: 100 mcg Folic Acid (Folic Acid -) 1 mg PO DAILY [facility] Last Admin: 11/30/17 09:28 Dose: 1 mg Furosemide (Lasix -) 40 mg PO DAILY [facility] Last Admin: 11/30/17 09:28 Dose: 40 mg Gabapentin (Neurontin -) 600 mg PO Q6HPO [facility] Last Admin: 11/30/17 11:40 Dose: 600 mg Hydroxyzine HCl (Atarax -) 50 mg PO Q6H PRN PRN Reason: ITCHING Last Admin: 11/29/17 22:32 Dose: 50 mg Cefazolin Sodium/Dextrose (Ancef 2 Gm Premixed Ivpb -) 2 gm in 50 mls @ 100 mls /hr IVPB BID [facility] Last Admin: 11/30/17 09:30 Dose: 100 mls/hr Lactulose (Cephulac (Oral Use)) 20 gm PO TID PRN PRN Reason: CONSTIPATION Last Admin: 11/28/17 11:00 Dose: 20 gm Lidocaine/Aluminum/Magnesium/Simeth (Magic Mouthwash *Sjr Formula* -) 5 ml MM Q6HPO [facility] Last Admin: 11/30/17 11:40 Dose: 5 ml Oxycodone HCl (Roxicodone -) 10 mg PO Q6H PRN PRN Reason: PAIN LEVEL 6-10 Last Admin: 11/30/17 06:00 Dose: 10 mg Pantoprazole Sodium (Protonix -) 40 mg PO DAILY [facility] Last Admin: 11/30/17 09:28 Dose: 40 mg Rifaximin (Xifaxan -) 550 mg PO BID [facility] Last Admin: 11/30/17 09:28 Dose: 550 mg Saliva Substitute (Mouthkote Solution -) 1 applic MM BID [facility] Last Admin: 11/30/17 09:30 Dose: 1 applic Silver Sulfadiazine (Silvadene -) 1 applic TP BID [facility] Last Admin: 11/30/17 09:29 Dose: Not Given Spironolactone (Aldactone -) 50 mg PO BID [facility] Last Admin: 11/30/17 09:27 Dose: 50 mg Thiamine HCl (Vitamin B1 -) 100 mg PO DAILY [facility] Last Admin: 11/30/17 09:27 Dose: 100 mg Tramadol HCl (Ultram -) 50 mg PO Q8H PRN PRN Reason: PAIN LEVEL 1-5 Last Admin: 11/30/17 09:27 Dose: 50 mg 52 year old gentleman with PMhx of 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 #PATRICIA in setting of Liver failure #Alcoholic Liver cirrhosis #coagulopathy in setting of liver disease #Acute on chronic anemia #Thrombocytopenia Renal function stable so far with titration of diuretics consider increasing Lasix to BID, and continue aldactone BID Low salt diet GI follow up continue Abx bacteremia/Cellulitis Prognosis is poor
--- NOTE | 2017-11-30 16:20 | PATH ---
Cytology Non-Gynecological Report Patient Name: NASREEN DANGELO [facility]. Rec. #: [id number] /Age/Gender: 1965 (Age: 52) / M Account: [id number] Location: [facility] PED[facility]/ADOL Taken: 11/26/2017 Received: 11/29/2017 Reported: 11/30/2017 Physicians: Alie Avalos M.D. Specimen(s) Received A: PERITONEAL FLUID B: PERITONEAL FLUID Clinical History Ascites Final Diagnosis A & B. ABDOMINAL FLUID, PARACENTESIS: SATISFACTORY FOR EVALUATION. NO MALIGNANT CELLS IDENTIFIED. MESOTHELIAL CELLS, RARE NEUTROPHILS, AND FEW LYMPHOCYTES PRESENT. Electronically Signed Susana Rushing M.D. Gross Description A. Approximately 50 cc of yellow fluid received fixed in 50% alcohol. Two cytofunnels and one cellblock prepared. B. Approximately 4000 cc of yellow fluid received fresh. Two cytofunnels and one cellblock prepared.
[2017-11-30] MEDS ORDERED: oxyCODONE HCL 5 MG TABLET ONE (23:27)
[2017-12-01] MEDS: GABAPENTIN 300 MG CAPSULE (FP) PO SCH ×5 (00:27→23:18)
[2017-12-01] MEDS: MAG HYDROX/ALH/SMC/DPHA/LIDO 240 ML MOUTHWASH MM SCH ×4 (00:28→17:56)
[2017-12-01] MEDS: FUROSEMIDE 40 MG TABLET (FP) PO SCH ×2 (06:27→14:37)
[2017-12-01] MEDS: oxyCODONE HCL 5 MG TABLET PO PRN ×2 (06:28→21:48)
[2017-12-01 07:19] LABS: ANION GAP 9 (8-16); BLOOD UREA NITROGEN 28 mg/dL (7-18); CALCIUM 9.4 mg/dL (8.5-10.1); CHLORIDE 98 mmol/L (98-107); CO2 29 mmol/L (21-32); CREATININE 1.6 mg/dL (0.7-1.3); GLUCOSE,RANDOM 97 mg/dL (74-106); MAGNESIUM 1.7 mg/dL (1.8-2.4); PHOSPHOROUS 2.7 mg/dL (2.5-4.9); SODIUM 136 mmol/L (136-145)
[2017-12-01] MEDS: SPIRONOLACTONE 25 MG TABLET (FP) PO SCH ×2 (10:42→21:47)
[2017-12-01] MEDS: CEFAZOLIN 2 GM/D5W 2 GM/50 ML ML IVPB SCH (10:42)
[2017-12-01] MEDS: FOLIC ACID 1 MG TABLET (FP) PO SCH (10:42)
[2017-12-01] MEDS: THIAMINE HCL 100 MG TABLET (FP) PO SCH (10:43)
[2017-12-01] MEDS: traMADol HCL 50 MG TABLET PO PRN ×2 (10:43→23:59)
[2017-12-01] MEDS: LYTES/YERBA SANTA 240 ML BOTTLE MM SCH ×2 (10:43→21:48)
[2017-12-01] MEDS: PANTOPRAZOLE 40 MG TABLET (FP) PO SCH (10:43)
[2017-12-01] MEDS: SILVER SULFADIAZINE 1% TOP CREAM 400 GM JAR TP SCH ×2 (10:44→21:48)
[2017-12-01 10:59] LABS: HEMATOCRIT 19.9 % (35.4-49); MCH 31.1 pg (25.7-33.7); MEAN CELL VOLUME 88.9 fl (80-96); PLATELET COUNT 74 K/MM3 (134-434); RBC 2.23 M/mm3 (4.00-5.60); WHITE BLOOD COUNT 6.3 K/mm3 (4.0-10.0)
--- NOTE | 2017-12-01 10:59 | PN ---
Progress Note, Physician Chief Complaint: AWAKE , LESS CONFUSED ABDOMEN DISTENDED IN BED - Current Medication List Current Medications: Active Medications Cyanocobalamin (Vitamin B12 -) 100 mcg PO DAILY [facility] Last Admin: 11/30/17 10:01 Dose: 100 mcg Folic Acid (Folic Acid -) 1 mg PO DAILY [facility] Last Admin: 12/01/17 10:42 Dose: 1 mg Furosemide (Lasix -) 40 mg PO BID@0600,1400 [facility] Last Admin: 12/01/17 06:27 Dose: 40 mg Gabapentin (Neurontin -) 600 mg PO Q6HPO [facility] Last Admin: 12/01/17 06:27 Dose: 600 mg Hydroxyzine HCl (Atarax -) 50 mg PO Q6H PRN PRN Reason: ITCHING Last Admin: 11/29/17 22:32 Dose: 50 mg Cefazolin Sodium/Dextrose (Ancef 2 Gm Premixed Ivpb -) 2 gm in 50 mls @ 100 mls /hr IVPB BID [facility] Last Admin: 12/01/17 10:42 Dose: 100 mls/hr Lactulose (Cephulac (Oral Use)) 20 gm PO TID PRN PRN Reason: CONSTIPATION Last Admin: 11/28/17 11:00 Dose: 20 gm Lidocaine/Aluminum/Magnesium/Simeth (Magic Mouthwash *Sjr Formula* -) 5 ml MM Q6HPO [facility] Last Admin: 12/01/17 06:28 Dose: Not Given Oxycodone HCl (Roxicodone -) 10 mg PO Q6H PRN PRN Reason: PAIN LEVEL 6-10 Last Admin: 12/01/17 06:28 Dose: 10 mg Pantoprazole Sodium (Protonix -) 40 mg PO DAILY [facility] Last Admin: 12/01/17 10:43 Dose: 40 mg Saliva Substitute (Mouthkote Solution -) 1 applic MM BID [facility] Last Admin: 12/01/17 10:43 Dose: 1 applic Silver Sulfadiazine (Silvadene -) 1 applic TP BID [facility] Last Admin: 12/01/17 10:44 Dose: 1 applic Spironolactone (Aldactone -) 50 mg PO BID [facility] Last Admin: 12/01/17 10:42 Dose: 50 mg Thiamine HCl (Vitamin B1 -) 100 mg PO DAILY [facility] Last Admin: 12/01/17 10:43 Dose: 100 mg Tramadol HCl (Ultram -) 50 mg PO Q8H PRN PRN Reason: PAIN LEVEL 1-5 Last Admin: 12/01/17 10:43 Dose: 50 mg - Objective Vital Signs: Vital Signs Temperature 99.2 F 12/01/17 10:00 Pulse Rate 98 H 12/01/17 10:00 Respiratory Rate 19 12/01/17 10:00 Blood Pressure 137/69 12/01/17 10:00 O2 Sat by Pulse Oximetry (%) 93 L 11/30/17 21:00 Constitutional: Yes: Mild Distress Eyes: Yes: Sclera Icterus HENT: Yes: WNL Neck: Yes: WNL Cardiovascular: Yes: WNL Respiratory: Yes: WNL Gastrointestinal: Yes: Ascites, Distention Genitourinary: Yes: WNL Musculoskeletal: Yes: Muscle Weakness Extremities: Yes: WNL Edema: Yes Edema: LLE: 1+, RLE: 1+ Peripheral Pulses WNL: Yes Integumentary: Yes: Pressure Ulcer, Venous Stasis Changes Wound/Incision: Yes: Draining, Unapproximated Neurological: Yes: Pre-Existing Deficit, Other ...Motor Strength: LLE, RLE Psychiatric: Yes: Other Labs: INR, PTT INR 2.86 (0.82-1.09) H 11/30/17 10:15 Fibrinogen < 100.0 mg/dL (238-498) L* 11/28/17 07:00 Problem List - Problems (1) Anemia Code(s): D64.9 - ANEMIA, UNSPECIFIED Qualifiers: (2) Ascites due to alcoholic cirrhosis Code(s): K70.31 - ALCOHOLIC CIRRHOSIS OF LIVER WITH ASCITES (3) CHF (congestive heart failure) Code(s): I50.9 - HEART FAILURE, UNSPECIFIED (4) Encephalopathy Code(s): G93.40 - ENCEPHALOPATHY, UNSPECIFIED (5) Liver cirrhosis Code(s): K74.60 - UNSPECIFIED CIRRHOSIS OF LIVER (6) Acute kidney injury Code(s): N17.9 - ACUTE KIDNEY FAILURE, UNSPECIFIED (7) Alcohol abuse Code(s): F10.10 - ALCOHOL ABUSE, UNCOMPLICATED (8) Alcohol dependence with uncomplicated withdrawal Code(s): F10.230 - ALCOHOL DEPENDENCE WITH WITHDRAWAL, UNCOMPLICATED (9) Alcoholic cirrhosis Code(s): K70.30 - ALCOHOLIC CIRRHOSIS OF LIVER WITHOUT ASCITES Qualifiers: Ascites presence: with ascites Qualified Code(s): K70.31 - Alcoholic cirrhosis of liver with ascites (10) Bleeding Code(s): R58 - HEMORRHAGE, NOT ELSEWHERE CLASSIFIED (11) Cellulitis Code(s): L03.90 - CELLULITIS, UNSPECIFIED Qualifiers: Site of cellulitis: other site Qualified Code(s): L03.818 - Cellulitis of other sites (12) Stomatitis and mucositis Code(s): K12.1 - OTHER FORMS OF STOMATITIS; K12.30 - ORAL MUCOSITIS (ULCERATIVE) , UNSPECIFIED (13) Epistaxis not due to trauma Code(s): R04.0 - EPISTAXIS Assessment/Plan ASCITES PARACENTESIS PER GI D/W DR CAMPBELL TODAY END STAGE LIVER DISEASE NOT A CANDIDATE FOR TIPS WILL NEED ANOTHER PARACENTESIS HOWEVER THIS INCREASES RISK FOR INFXN DR CAMPBELL TO D/W PATIENT TODAY PAIN CONTROL ANEMIA MAY NEED TRANSFUSIONS CHECK CBC IN AM HEPATOLOGY WORKUP FOR LIVER TRANSPLANT OOB TO CHAIR ENCEPHALOPATHY STABLE MUSCULAR TWITCHES WILL CALL FOR NEURO EVAL
--- NOTE | 2017-12-01 11:12 | PN ---
Progress Note, Physician History of Present Illness: Talkative. Awake, alert, jaundiced. Abdominal girth increased , Complaints of some discomfort, early satiety and shortness of breath. - Current Medication List Current Medications: Active Medications Cyanocobalamin (Vitamin B12 -) 100 mcg PO DAILY [facility] Last Admin: 11/30/17 10:01 Dose: 100 mcg Folic Acid (Folic Acid -) 1 mg PO DAILY [facility] Last Admin: 12/01/17 10:42 Dose: 1 mg Furosemide (Lasix -) 40 mg PO BID@0600,1400 [facility] Last Admin: 12/01/17 06:27 Dose: 40 mg Gabapentin (Neurontin -) 600 mg PO Q6HPO [facility] Last Admin: 12/01/17 06:27 Dose: 600 mg Hydroxyzine HCl (Atarax -) 50 mg PO Q6H PRN PRN Reason: ITCHING Last Admin: 11/29/17 22:32 Dose: 50 mg Cefazolin Sodium/Dextrose (Ancef 2 Gm Premixed Ivpb -) 2 gm in 50 mls @ 100 mls /hr IVPB BID [facility] Last Admin: 12/01/17 10:42 Dose: 100 mls/hr Lactulose (Cephulac (Oral Use)) 20 gm PO TID PRN PRN Reason: CONSTIPATION Last Admin: 11/28/17 11:00 Dose: 20 gm Lidocaine/Aluminum/Magnesium/Simeth (Magic Mouthwash *Sjr Formula* -) 5 ml MM Q6HPO [facility] Last Admin: 12/01/17 06:28 Dose: Not Given Oxycodone HCl (Roxicodone -) 10 mg PO Q6H PRN PRN Reason: PAIN LEVEL 6-10 Last Admin: 12/01/17 06:28 Dose: 10 mg Pantoprazole Sodium (Protonix -) 40 mg PO DAILY [facility] Last Admin: 12/01/17 10:43 Dose: 40 mg Saliva Substitute (Mouthkote Solution -) 1 applic MM BID [facility] Last Admin: 12/01/17 10:43 Dose: 1 applic Silver Sulfadiazine (Silvadene -) 1 applic TP BID [facility] Last Admin: 12/01/17 10:44 Dose: 1 applic Spironolactone (Aldactone -) 50 mg PO BID [facility] Last Admin: 12/01/17 10:42 Dose: 50 mg Thiamine HCl (Vitamin B1 -) 100 mg PO DAILY [facility] Last Admin: 12/01/17 10:43 Dose: 100 mg Tramadol HCl (Ultram -) 50 mg PO Q8H PRN PRN Reason: PAIN LEVEL 1-5 Last Admin: 12/01/17 10:43 Dose: 50 mg - Objective Vital Signs: Vital Signs Temperature 99.2 F 12/01/17 10:00 Pulse Rate 98 H 12/01/17 10:00 Respiratory Rate 19 12/01/17 10:00 Blood Pressure 137/69 12/01/17 10:00 O2 Sat by Pulse Oximetry (%) 93 L 11/30/17 21:00 Constitutional: Yes: No Distress Eyes: Yes: Sclera Icterus Gastrointestinal: Yes: Soft, Ascites, Distention. No: Tenderness Neurological: Yes: Other ( jerking movements) Labs: CBC, BMP 12/01/17 10:38 INR, PTT INR 2.86 (0.82-1.09) H 11/30/17 10:15 Fibrinogen < 100.0 mg/dL (238-498) L* 11/28/17 07:00 Laboratory Last Values WBC 6.3 K/mm3 (4.0-10.0) 12/01/17 10:38 RBC 2.23 M/mm3 (4.00-5.60) L 12/01/17 10:38 Hgb 7.0 GM/dL (11.7-16.9) L 12/01/17 10:38 Hct 19.9 % (35.4-49) L 12/01/17 10:38 MCV 88.9 fl (80-96) 12/01/17 10:38 MCH 31.1 pg (25.7-33.7) 12/01/17 10:38 MCHC 35.0 g/dl (32.0-35.9) 12/01/17 10:38 RDW 18.0 % (11.9-15.9) H 12/01/17 10:38 Plt Count 74 K/MM3 (134-434) L 12/01/17 10:38 MPV 8.0 fl (7.5-11.1) 12/01/17 10:38 Neutrophils % 66.5 % (42.8-82.8) 11/30/17 06:00 Lymphocytes % 19.1 % (8-40) 11/30/17 06:00 Monocytes % 11.5 % (3.8-10.2) H 11/30/17 06:00 Eosinophils % 2.4 % (0-4.5) 11/30/17 06:00 Basophils % 0.5 % (0-2.0) 11/30/17 06:00 Platelet Estimate Decreased 11/30/17 06:00 Platelet Comment No clumping noted 11/30/17 06:00 PT with INR 32.30 SEC (9.7-13.0) H 11/30/17 10:15 INR 2.86 (0.82-1.09) H 11/30/17 10:15 Fibrinogen < 100.0 mg/dL (238-498) L* 11/28/17 07:00 Sodium 136 mmol/L (136-145) 12/01/17 05:35 Potassium 4.0 mmol/L (3.5-5.1) 12/01/17 05:35 Chloride 98 mmol/L (98-107) 12/01/17 05:35 Carbon Dioxide 29 mmol/L (21-32) 12/01/17 05:35 Anion Gap 9 (8-16) 12/01/17 05:35 BUN 28 mg/dL (7-18) H 12/01/17 05:35 Creatinine 1.6 mg/dL (0.7-1.3) H 12/01/17 05:35 Creat Clearance w eGFR 42.21 (>60) 11/30/17 10:15 Random Glucose 97 mg/dL (74-106) D 12/01/17 05:35 Calcium 9.4 mg/dL (8.5-10.1) 12/01/17 05:35 Phosphorus 2.7 mg/dL (2.5-4.9) 12/01/17 05:35 Magnesium 1.7 mg/dL (1.8-2.4) L 12/01/17 05:35 Iron 111 ug/dL (38-169) 11/24/17 06:08 TIBC < 128 ug/dL (250-450) L 11/24/17 06:08 Iron Saturation > 87 % (15-55) H 11/24/17 06:08 Ferritin 2868.722 ng/ml (16.4-293.9) H 11/24/17 06:08 Total Bilirubin 5.7 mg/dL (0.2-1.0) H 11/30/17 10:15 Direct Bilirubin 2.2 mg/dL (0.0-0.2) H 11/30/17 10:15 AST 55 U/L (15-37) H 11/30/17 10:15 ALT 6 U/L (12-78) L 11/30/17 10:15 Alkaline Phosphatase 98 U/L (45-117) 11/30/17 10:15 Ammonia < 10.0 umol/L (11-32) L 11/23/17 20:32 Creatine Kinase 24 IU/L (39-308) L 11/23/17 20:38 Troponin I 0.03 ng/ml (0.00-0.05) D 11/23/17 20:38 B-Natriuretic Peptide 7258.68 pg/ml (5-125) H 11/23/17 20:38 Total Protein 8.1 g/dl (6.4-8.2) 11/30/17 10:15 Albumin 4.1 g/dl (3.4-5.0) 11/30/17 10:15 Lipase 85 U/L (73-393) 11/23/17 20:38 Urine Color Straw 11/24/17 00:50 Urine Appearance Clear 11/24/17 00:50 Urine pH 7.0 (5.0-8.0) D 11/24/17 00:50 Ur Specific [place] 1.004 (1.001-1.035) 11/24/17 00:50 Urine Protein Negative (NEGATIVE) 11/24/17 00:50 Urine Glucose (UA) Negative (NEGATIVE) 11/24/17 00:50 Urine Ketones Negative (NEGATIVE) 11/24/17 00:50 Urine Blood Negative (NEGATIVE) 11/24/17 00:50 Urine Nitrite Negative (NEGATIVE) 11/24/17 00:50 Urine Bilirubin Negative (<2.0 mg/dL) 11/24/17 00:50 Urine Urobilinogen Negative mg/dL (0.2-1.0) 11/24/17 00:50 Ur Leukocyte Esterase Negative (NEGATIVE) 11/24/17 00:50 Peritoneal WBC 162 /mm3 11/26/17 16:30 Peritoneal RBC 789 /mm3 11/26/17 16:30 Periton Neutrophils 5 % 11/26/17 16:30 Periton Mesothelial 95 % 11/26/17 16:30 Peritoneal Tot Protein 3 gm/dL 11/26/17 16:30 Peritoneal Albumin 2 g/dL 11/26/17 16:30 Peritoneal LDH 65 IU/L 11/26/17 16:30 Peritoneal Glucose 142 mg/dL 11/26/17 16:30 Peritoneal Amylase 9 U/L 11/26/17 16:30 Peritoneal Triglycerid 41 mg/dL 11/26/17 16:30 Stool Occult Blood Positive (NEGATIVE) 11/25/17 02:20 Acetone, Qual Negative (NEGATIVE) 11/23/17 20:38 Blood Type O POSITIVE 11/23/17 20:38 Antibody Screen Negative 11/23/17 20:38 Crossmatch See Detail 11/23/17 20:38 Problem List - Problems (1) Encephalopathy Code(s): G93.40 - ENCEPHALOPATHY, UNSPECIFIED (2) Ascites due to alcoholic cirrhosis Code(s): K70.31 - ALCOHOLIC CIRRHOSIS OF LIVER WITH ASCITES (3) Liver cirrhosis Code(s): K74.60 - UNSPECIFIED CIRRHOSIS OF LIVER (4) Alcoholic cirrhosis Code(s): K70.30 - ALCOHOLIC CIRRHOSIS OF LIVER WITHOUT ASCITES Qualifiers: Ascites presence: with ascites Qualified Code(s): K70.31 - Alcoholic cirrhosis of liver with ascites Assessment/Plan Worsening abdominal distention despite Aldactone, Lasix and low salt diet. had 3+ liters removed few days ago. When I be able to increase diuretics due to underlying HRS/ renal insufficiency. worsening jerky movements of the body. We will check electrolytes. Neurology consult was request
[2017-12-01 11:38] LABS: ALBUMIN 3.7 g/dl (3.4-5.0); ANION GAP 6 (8-16); BILIRUBIN,DIRECT 2.2 mg/dL (0.0-0.2); BLOOD UREA NITROGEN 28 mg/dL (7-18); CALCIUM 9.1 mg/dL (8.5-10.1); CHLORIDE 100 mmol/L (98-107); CO2 30 mmol/L (21-32); CREATININE 1.7 mg/dL (0.7-1.3); GLUCOSE,RANDOM 183 mg/dL (74-106); POTASSIUM 3.9 mmol/L (3.5-5.1); SGOT/AST 46 U/L (15-37); SGPT/ALT < 6 U/L (12-78); SODIUM 136 mmol/L (136-145)
[2017-12-01 11:40] LABS: ALK PHOS 83 U/L (45-117); BILIRUBIN,TOTAL 6.3 mg/dL (0.2-1.0); TOT PROT 7.6 g/dl (6.4-8.2)
[2017-12-01 12:10] LABS: INR 3.09 (0.82-1.09); PROTHROMBIN TIME (PATIENT) 34.9 SEC (9.7-13.0)
[2017-12-01] MEDS: CYANOCOBALAMIN (VITAMIN B-12) 100 MCG TABLET PO SCH (12:19)
[2017-12-01] MEDS: CLOTRIMAZOLE/BETAMET DIPROP 15 GM TUBE TP SCH ×2 (14:36→21:48)
--- NOTE | 2017-12-01 17:57 | PN ---
Progress Note (short form) - Note Progress Note: Renal follow up for PATRICIA on CKD Pt seen and examined at the bedside awake and alert reports involentary movements of UE no sob, chest pain Vital Signs Temperature 98.3 F 12/01/17 14:00 Pulse Rate 93 H 12/01/17 14:00 Respiratory Rate 19 12/01/17 14:00 Blood Pressure 148/77 12/01/17 14:00 O2 Sat by Pulse Oximetry (%) 93 L 12/01/17 09:00 Intake & Output 11/28/17 11/29/17 11/30/17 12/01/17 23:59 23:59 23:59 23:59 Intake Total 144 622 8119 350 Balance 165 683 7325 350 Weight 92.079 kg 90.945 kg NAD, awake and alert no JVD, neck supple RRR, No M/R CTA Obese, + ascities, no tenderness Trace sacral edema, 1+ LE edema No bladder distension CBC, BMP 12/01/17 10:38 12/01/17 10:38 Current Medications Clotrimazole (Lotrisone Cream (Small Tube)) 1 applic TP BID [facility] Last Admin: 12/01/17 14:36 Dose: 1 applic Cyanocobalamin (Vitamin B12 -) 100 mcg PO DAILY [facility] Last Admin: 12/01/17 12:19 Dose: 100 mcg Folic Acid (Folic Acid -) 1 mg PO DAILY [facility] Last Admin: 12/01/17 10:42 Dose: 1 mg Furosemide (Lasix -) 40 mg PO BID@0600,1400 [facility] Last Admin: 12/01/17 14:37 Dose: 40 mg Gabapentin (Neurontin -) 600 mg PO Q6HPO [facility] Last Admin: 12/01/17 12:19 Dose: 600 mg Hydroxyzine HCl (Atarax -) 50 mg PO Q6H PRN PRN Reason: ITCHING Last Admin: 11/29/17 22:32 Dose: 50 mg Cefazolin Sodium/Dextrose (Ancef 2 Gm Premixed Ivpb -) 2 gm in 50 mls @ 100 mls /hr IVPB BID [facility] Last Admin: 12/01/17 10:42 Dose: 100 mls/hr Lactulose (Cephulac (Oral Use)) 20 gm PO TID PRN PRN Reason: CONSTIPATION Last Admin: 11/28/17 11:00 Dose: 20 gm Lidocaine/Aluminum/Magnesium/Simeth (Magic Mouthwash *Sjr Formula* -) 5 ml MM Q6HPO [facility] Last Admin: 12/01/17 12:19 Dose: 5 ml Oxycodone HCl (Roxicodone -) 10 mg PO Q6H PRN PRN Reason: PAIN LEVEL 6-10 Last Admin: 12/01/17 06:28 Dose: 10 mg Pantoprazole Sodium (Protonix -) 40 mg PO DAILY [facility] Last Admin: 12/01/17 10:43 Dose: 40 mg Saliva Substitute (Mouthkote Solution -) 1 applic MM BID [facility] Last Admin: 12/01/17 10:43 Dose: 1 applic Silver Sulfadiazine (Silvadene -) 1 applic TP BID [facility] Last Admin: 12/01/17 10:44 Dose: 1 applic Spironolactone (Aldactone -) 50 mg PO BID [facility] Last Admin: 12/01/17 10:42 Dose: 50 mg Thiamine HCl (Vitamin B1 -) 100 mg PO DAILY [facility] Last Admin: 12/01/17 10:43 Dose: 100 mg Tramadol HCl (Ultram -) 50 mg PO Q8H PRN PRN Reason: PAIN LEVEL 1-5 Last Admin: 12/01/17 10:43 Dose: 50 mg 52 year old gentleman with PMhx of 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 #PATRICIA in setting of Liver failure #Alcoholic Liver cirrhosis #coagulopathy in setting of liver disease #Acute on chronic anemia #Thrombocytopenia Renal function stable at this time pts weight is uptrending if renal function stable and weights continue to rise can titrate diuretics GI follow up and paracentesis as needed continue supportive care prognosis is poor Prognosis is poor
--- NOTE | 2017-12-01 19:29 | CONSULT ---
Consult - text type - Consultation Consultation Note: NEUROLOGY CONSULTATION is greatly appreciated: Events reviewed. Pt examined with at the bedside who provides additional history. This 52 yo RH man is know to me from prior admissions for ETOH detox and Hepatic encephalopathy. Pt. also believes he saw me in the office in the distant past, possibly for migraine headaches. Know to have cirrhosis, varices Now admitted with increasing weakness, jaundice and gait ataxia. Found to have Bili =7.4. Severe anemia (now being transfused), coagulopathy and elevated Ferritin levels. notes twitching movement of the face and arms but also, wild movements of the legs that persist in sleep. These are possibly associated with chronic pain in the legs for which the patient receives gabatentin, oxycodone and tramadol. EXAM: Ascitic abdomen. Cellulitis and edema both legs. Neck supple. Moderate OMS. Moves all four's well but + Asterixis/ myoclonus. Normal reflexes including AJ's Periodic movements of the distal legs. IMP: Hepatic encephalopathy Myoclonus/asterixis Possible Restless legs syndrome (will increase with anemia). SUGGEST: Parenteral thiamine Check B12, TSH. No need to treat either myoclonus or Restless legs but could try low doses of a dopamine agonist (ie: pramipexole, .125 mg BID) This might allow for decreases in his pain regimen. Would simplify aat any rate and d/c tramadol in favor of monotherapy with oxycodone. D/C atarx- antihistamines will increase pain and mov'ts in RLS. Thank you very much, Ector Lechuga MD
[2017-12-01] MEDS ORDERED: THIAMINE HCL 200 MG/2 ML VIAL IVPB SCH (19:45)
[2017-12-01] MEDS: THIAMINE HCL 200 MG/2 ML VIAL IVPB SCH (23:17)
[2017-12-02] MEDS: THIAMINE HCL 200 MG/2 ML VIAL IVPB SCH ×3 (02:07→17:27)
[2017-12-02] MEDS: GABAPENTIN 300 MG CAPSULE (FP) PO SCH ×4 (06:18→23:28)
[2017-12-02] MEDS: MAG HYDROX/ALH/SMC/DPHA/LIDO 240 ML MOUTHWASH MM SCH ×5 (06:18→23:27)
[2017-12-02] MEDS: FUROSEMIDE 40 MG TABLET (FP) PO SCH ×2 (06:18→14:03)
[2017-12-02 07:04] LABS: MAGNESIUM 1.5 mg/dL (1.8-2.4); PHOSPHOROUS 3.1 mg/dL (2.5-4.9)
[2017-12-02] MEDS ORDERED: PT OWN MED DRAWER 7, Y5N ONE (08:38)
[2017-12-02] MEDS: LYTES/YERBA SANTA 240 ML BOTTLE MM SCH ×2 (09:22→21:51)
[2017-12-02] MEDS: PANTOPRAZOLE 40 MG TABLET (FP) PO SCH (09:22)
[2017-12-02] MEDS: SPIRONOLACTONE 25 MG TABLET (FP) PO SCH ×2 (09:22→21:50)
[2017-12-02] MEDS: CYANOCOBALAMIN (VITAMIN B-12) 100 MCG TABLET PO SCH (09:22)
[2017-12-02] MEDS: FOLIC ACID 1 MG TABLET (FP) PO SCH (09:22)
[2017-12-02] MEDS: SILVER SULFADIAZINE 1% TOP CREAM 400 GM JAR TP SCH ×2 (09:22→21:51)
[2017-12-02] MEDS: CLOTRIMAZOLE/BETAMET DIPROP 15 GM TUBE TP SCH ×2 (09:22→21:51)
[2017-12-02] MEDS: oxyCODONE HCL 5 MG TABLET PO PRN ×3 (10:07→23:28)
[2017-12-02 11:14] LABS: HEMATOCRIT 24.7 % (35.4-49); HEMOGLOBIN 8.7 GM/dL (11.7-16.9); MCH 30.9 pg (25.7-33.7); MEAN CELL VOLUME 88.2 fl (80-96); MEAN PLT VOLUME 7.8 fl (7.5-11.1); PLATELET COUNT 96 K/MM3 (134-434); RDW 17.7 % (11.9-15.9); WHITE BLOOD COUNT 7.9 K/mm3 (4.0-10.0)
--- NOTE | 2017-12-02 11:27 | PN ---
Progress Note, Physician Chief Complaint: IN BED ASLEEP COMFORTABLE NOTES REVIEWED - Current Medication List Current Medications: Active Medications Clotrimazole (Lotrisone Cream (Small Tube)) 1 applic TP BID [facility] Last Admin: 12/02/17 09:22 Dose: 1 applic Cyanocobalamin (Vitamin B12 -) 100 mcg PO DAILY [facility] Last Admin: 12/02/17 09:22 Dose: 100 mcg Folic Acid (Folic Acid -) 1 mg PO DAILY [facility] Last Admin: 12/02/17 09:22 Dose: 1 mg Furosemide (Lasix -) 40 mg PO BID@0600,1400 [facility] Last Admin: 12/02/17 06:18 Dose: 40 mg Gabapentin (Neurontin -) 600 mg PO Q6HPO [facility] Last Admin: 12/02/17 06:18 Dose: 600 mg Lactulose (Cephulac (Oral Use)) 20 gm PO TID PRN PRN Reason: CONSTIPATION Last Admin: 11/28/17 11:00 Dose: 20 gm Lidocaine/Aluminum/Magnesium/Simeth (Magic Mouthwash *Sjr Formula* -) 5 ml MM Q6HPO [facility] Last Admin: 12/02/17 06:18 Dose: 5 ml Magnesium Oxide (Mag-Ox -) 400 mg PO BID [facility] Oxycodone HCl (Roxicodone -) 10 mg PO Q6H PRN PRN Reason: PAIN LEVEL 6-10 Last Admin: 12/02/17 10:07 Dose: 10 mg Pantoprazole Sodium (Protonix -) 40 mg PO DAILY [facility] Last Admin: 12/02/17 09:22 Dose: 40 mg Saliva Substitute (Mouthkote Solution -) 1 applic MM BID [facility] Last Admin: 12/02/17 09:22 Dose: 1 applic Silver Sulfadiazine (Silvadene -) 1 applic TP BID [facility] Last Admin: 12/02/17 09:22 Dose: Not Given Spironolactone (Aldactone -) 50 mg PO BID [facility] Last Admin: 12/02/17 09:22 Dose: 50 mg Thiamine HCl (Vitamin B1 Injection -) 200 mg IVPB Q8H-IV [facility] Stop: 12/02/17 19:44 Last Admin: 12/02/17 09:22 Dose: 200 mg Tramadol HCl (Ultram -) 50 mg PO Q8H PRN PRN Reason: PAIN LEVEL 1-5 Last Admin: 12/01/17 23:59 Dose: 50 mg - Objective Vital Signs: Vital Signs Temperature 98.0 F 12/02/17 06:00 Pulse Rate 103 H 12/02/17 06:00 Respiratory Rate 20 12/02/17 06:00 Blood Pressure 146/79 12/02/17 06:00 O2 Sat by Pulse Oximetry (%) 95 12/01/17 21:00 Constitutional: Yes: Mild Distress Eyes: Yes: Sclera Icterus HENT: Yes: WNL Neck: Yes: WNL Cardiovascular: Yes: WNL Respiratory: Yes: WNL Gastrointestinal: Yes: Ascites, Distention Genitourinary: Yes: WNL Musculoskeletal: Yes: Muscle Weakness Extremities: Yes: Erythema Edema: Yes Peripheral Pulses WNL: Yes Integumentary: Yes: Pressure Ulcer, Rash, Skin Tear, Venous Stasis Changes Wound/Incision: Yes: Dressing Dry and Intact, Draining Neurological: Yes: Asterixis, Pre-Existing Deficit, Weakness ...Motor Strength: LUE, LLE, RUE, RLE Psychiatric: Yes: Other Labs: CBC, BMP 12/02/17 10:59 INR, PTT INR 3.09 (0.82-1.09) H 12/01/17 10:38 Fibrinogen < 100.0 mg/dL (238-498) L* 11/28/17 07:00 Problem List - Problems (1) Anemia Code(s): D64.9 - ANEMIA, UNSPECIFIED Qualifiers: (2) Ascites due to alcoholic cirrhosis Code(s): K70.31 - ALCOHOLIC CIRRHOSIS OF LIVER WITH ASCITES (3) CHF (congestive heart failure) Code(s): I50.9 - HEART FAILURE, UNSPECIFIED (4) Encephalopathy Code(s): G93.40 - ENCEPHALOPATHY, UNSPECIFIED (5) Liver cirrhosis Code(s): K74.60 - UNSPECIFIED CIRRHOSIS OF LIVER (6) Acute kidney injury Code(s): N17.9 - ACUTE KIDNEY FAILURE, UNSPECIFIED (7) Alcohol abuse Code(s): F10.10 - ALCOHOL ABUSE, UNCOMPLICATED (8) Alcohol dependence with uncomplicated withdrawal Code(s): F10.230 - ALCOHOL DEPENDENCE WITH WITHDRAWAL, UNCOMPLICATED (9) Alcoholic cirrhosis Code(s): K70.30 - ALCOHOLIC CIRRHOSIS OF LIVER WITHOUT ASCITES Qualifiers: Ascites presence: with ascites Qualified Code(s): K70.31 - Alcoholic cirrhosis of liver with ascites (10) Bleeding Code(s): R58 - HEMORRHAGE, NOT ELSEWHERE CLASSIFIED (11) Cellulitis Code(s): L03.90 - CELLULITIS, UNSPECIFIED Qualifiers: Site of cellulitis: other site Qualified Code(s): L03.818 - Cellulitis of other sites (12) Stomatitis and mucositis Code(s): K12.1 - OTHER FORMS OF STOMATITIS; K12.30 - ORAL MUCOSITIS (ULCERATIVE) , UNSPECIFIED (13) Epistaxis not due to trauma Code(s): R04.0 - EPISTAXIS Assessment/Plan NEUROLOGY WORKUP/CONSULT APPRECIATED AND IN PROGRESS MIRAPEX STARTED, TRAMADOL STOPPED PALLIAITVE CARE CONSULT CALLED B/C PATIENT IS IN HEPATORENAL FAILURE AND NEEDS TO HAVE ADVANCED DIRECTIVES REVIEWED WITH FAMILY AND OPTION OF LIVER TRANSPLANT IS POOR. ASCITES WILL NEED PARACENTESIS BENEFIT VS RISK DISCUSSED
[2017-12-02 11:35] LABS: INR 2.82 (0.82-1.09); PROTHROMBIN TIME (PATIENT) 31.9 SEC (9.7-13.0)
[2017-12-02 11:38] LABS: ALK PHOS 105 U/L (45-117); ANION GAP 6 (8-16); BILIRUBIN,DIRECT 2.9 mg/dL (0.0-0.2); BILIRUBIN,TOTAL 9.7 mg/dL (0.2-1.0); BLOOD UREA NITROGEN 28 mg/dL (7-18); CALCIUM 9.6 mg/dL (8.5-10.1); CHLORIDE 97 mmol/L (98-107); CO2 33 mmol/L (21-32); CREATININE 1.6 mg/dL (0.7-1.3); GLUCOSE,RANDOM 125 mg/dL (74-106); POTASSIUM 3.9 mmol/L (3.5-5.1); SGOT/AST 51 U/L (15-37); SGPT/ALT < 6 U/L (12-78); SODIUM 136 mmol/L (136-145); TOT PROT 8.3 g/dl (6.4-8.2)
[2017-12-02] MEDS: MAGNESIUM OXIDE 400 MG TABLET (FP) PO SCH ×2 (11:41→21:50)
--- NOTE | 2017-12-02 13:37 | PN ---
Progress Note, Physician History of Present Illness: Talkative. Awake, alert, jaundiced. Abdominal girth increased , Complaints of some discomfort, early satiety and shortness of breath. US - moderate ascites. Neurology assessment noted. - Current Medication List Current Medications: Active Medications Clotrimazole (Lotrisone Cream (Small Tube)) 1 applic TP BID [facility] Last Admin: 12/02/17 09:22 Dose: 1 applic Cyanocobalamin (Vitamin B12 -) 100 mcg PO DAILY [facility] Last Admin: 12/02/17 09:22 Dose: 100 mcg Folic Acid (Folic Acid -) 1 mg PO DAILY [facility] Last Admin: 12/02/17 09:22 Dose: 1 mg Furosemide (Lasix -) 40 mg PO BID@0600,1400 [facility] Last Admin: 12/02/17 06:18 Dose: 40 mg Gabapentin (Neurontin -) 600 mg PO Q6HPO [facility] Last Admin: 12/02/17 11:41 Dose: 600 mg Lactulose (Cephulac (Oral Use)) 20 gm PO TID PRN PRN Reason: CONSTIPATION Last Admin: 11/28/17 11:00 Dose: 20 gm Lidocaine/Aluminum/Magnesium/Simeth (Magic Mouthwash *Sjr Formula* -) 5 ml MM Q6HPO [facility] Last Admin: 12/02/17 11:41 Dose: 5 ml Magnesium Oxide (Mag-Ox -) 400 mg PO BID [facility] Last Admin: 12/02/17 11:41 Dose: 400 mg Oxycodone HCl (Roxicodone -) 10 mg PO Q6H PRN PRN Reason: PAIN LEVEL 6-10 Last Admin: 12/02/17 10:07 Dose: 10 mg Pantoprazole Sodium (Protonix -) 40 mg PO DAILY [facility] Last Admin: 12/02/17 09:22 Dose: 40 mg Pramipexole Dihydrochloride (Mirapex -) 0.125 mg PO BID [facility] Saliva Substitute (Mouthkote Solution -) 1 applic MM BID [facility] Last Admin: 12/02/17 09:22 Dose: 1 applic Silver Sulfadiazine (Silvadene -) 1 applic TP BID [facility] Last Admin: 12/02/17 09:22 Dose: Not Given Spironolactone (Aldactone -) 50 mg PO BID [facility] Last Admin: 12/02/17 09:22 Dose: 50 mg Thiamine HCl (Vitamin B1 Injection -) 200 mg IVPB Q8H-IV [facility] Stop: 12/02/17 19:44 Last Admin: 12/02/17 09:22 Dose: 200 mg - Objective Vital Signs: Vital Signs Temperature 97.9 F 12/02/17 10:00 Pulse Rate 102 H 12/02/17 10:00 Respiratory Rate 18 12/02/17 10:00 Blood Pressure 155/68 12/02/17 10:00 O2 Sat by Pulse Oximetry (%) 96 12/02/17 09:00 Constitutional: Yes: No Distress, Calm Eyes: Yes: Sclera Icterus Gastrointestinal: Yes: Ascites, Distention. No: Tenderness Neurological: Yes: Asterixis, Other (myoclonus) Labs: CBC, BMP 12/02/17 10:59 12/02/17 10:59 INR, PTT INR 2.82 (0.82-1.09) H 12/02/17 10:59 Fibrinogen < 100.0 mg/dL (238-498) L* 11/28/17 07:00 Initial Vital Signs Temp Pulse Resp BP Pulse Ox 98.5 F 91 H 20 150/78 96 11/23/17 18:32 11/23/17 18:32 11/23/17 18:32 11/23/17 18:32 11/23/17 18:32 - ....Imaging Ultrasound: Report Reviewed Problem List - Problems (1) Encephalopathy Code(s): G93.40 - ENCEPHALOPATHY, UNSPECIFIED (2) Ascites due to alcoholic cirrhosis Code(s): K70.31 - ALCOHOLIC CIRRHOSIS OF LIVER WITH ASCITES (3) Liver cirrhosis Code(s): K74.60 - UNSPECIFIED CIRRHOSIS OF LIVER (4) Alcoholic cirrhosis Code(s): K70.30 - ALCOHOLIC CIRRHOSIS OF LIVER WITHOUT ASCITES Qualifiers: Ascites presence: with ascites Qualified Code(s): K70.31 - Alcoholic cirrhosis of liver with ascites Assessment/Plan FFP prior to US guided paracentesis. Will increase aldactone and Lasix if creatinine remains stable after the paracentesis. Prognosis is grave unless transplanted. Consider 2nd opinion @ [facility]
--- NOTE | 2017-12-02 13:59 | PN ---
Progress Note (short form) - Note Progress Note: pt seen and examined. chart reviewed. numbers.exam worsening HEENT: ALAN, EOM Intact, icteric Breasts:bilateral gynecomastia Cor: RSR, systolic murmur Lungs: diminished breath sounds Abd: soft, increasing ascites Ext:LE edema Skin: stasis LE's Last Vital Signs Temp Pulse Resp BP Pulse Ox 98.4 F 111 H 18 142/83 96 12/02/17 13:37 12/02/17 13:37 12/02/17 13:37 12/02/17 13:37 12/02/17 09:00 CBC, BMP 12/02/17 10:59 12/02/17 10:59 Current Medications Generic Name Dose Route Start Last Admin Trade Name Freq PRN Reason Stop Dose Admin Clotrimazole 1 applic 12/01/17 11:15 12/02/17 09:22 Lotrisone Cream (Small Tube) TP 1 applic BID [facility] Administration Cyanocobalamin 100 mcg 11/24/17 10:00 12/02/17 09:22 Vitamin B12 - PO 100 mcg DAILY [facility] Administration Folic Acid 1 mg 11/24/17 10:00 12/02/17 09:22 Folic Acid - PO 1 mg DAILY [facility] Administration Furosemide 40 mg 12/01/17 06:00 12/02/17 06:18 Lasix - PO 40 mg BID@0600,1400 [facility] Administration Gabapentin 600 mg 11/27/17 13:29 12/02/17 11:41 Neurontin - PO 600 mg Q6HPO [facility] Administration Lactulose 20 gm 11/26/17 09:46 11/28/17 11:00 Cephulac (Oral Use) PO 20 gm TID PRN Administration CONSTIPATION Lidocaine/Aluminum/Magnesium/Simeth 5 ml 11/24/17 13:00 12/02/17 11:41 Magic Mouthwash *Sjr Formula* - MM 5 ml Q6HPO [facility] Administration Magnesium Oxide 400 mg 12/02/17 11:30 12/02/17 11:41 Mag-Ox - PO 400 mg BID [facility] Administration Oxycodone HCl 10 mg 12/01/17 04:10 12/02/17 10:07 Roxicodone - PO 10 mg Q6H PRN Administration PAIN LEVEL 6-10 Pantoprazole Sodium 40 mg 11/24/17 10:00 12/02/17 09:22 Protonix - PO 40 mg DAILY [facility] Administration Pramipexole Dihydrochloride 0.125 mg 12/02/17 22:00 Mirapex - PO BID [facility] Saliva Substitute 1 applic 11/28/17 22:00 12/02/17 09:22 Mouthkote Solution - MM 1 applic BID [facility] Administration Silver Sulfadiazine 1 applic 11/27/17 13:30 12/02/17 09:22 Silvadene - TP Not Given BID [facility] Spironolactone 50 mg 11/29/17 10:00 12/02/17 09:22 Aldactone - PO 50 mg BID [facility] Administration Thiamine HCl 200 mg 12/01/17 19:45 12/02/17 09:22 Vitamin B1 Injection - IVPB 12/02/17 19:44 200 mg Q8H-IV [facility] Administration Advanced liver disease with alcoholic cirrhosis Leukopenia Anemia Thrombocytopenia Coagulopathy portal hypertension Ascites Hypersplenism Hepato-renal syndrome Encephalopathy--stable S/P blood transfusion. FFP prior to Procedures.to achieve hemostasis
--- NOTE | 2017-12-02 14:21 | PN ---
Progress Note (short form) - Note Progress Note: Renal follow up for PATRICIA on CKD Pt seen and examined at the bedside awake and alert no acute complaints making urine no sob, chest pain abd distension persists, leg edema persists Vital Signs Temperature 98.4 F 12/02/17 13:37 Pulse Rate 111 H 12/02/17 13:37 Respiratory Rate 18 12/02/17 13:37 Blood Pressure 142/83 12/02/17 13:37 O2 Sat by Pulse Oximetry (%) 96 12/02/17 09:00 Intake & Output 11/29/17 11/30/17 12/01/17 12/02/17 23:59 23:59 23:59 23:59 Intake Total 700 1150 750 420 Balance 700 1150 750 420 Weight 92.079 kg 90.945 kg 89.131 kg NAD, awake and alert no JVD, neck supple RRR, No M/R CTA Obese, + ascities, no tenderness Trace sacral edema, 1+ LE edema No bladder distension CBC, BMP 12/02/17 10:59 12/02/17 10:59 Current Medications Clotrimazole (Lotrisone Cream (Small Tube)) 1 applic TP BID [facility] Last Admin: 12/02/17 09:22 Dose: 1 applic Cyanocobalamin (Vitamin B12 -) 100 mcg PO DAILY [facility] Last Admin: 12/02/17 09:22 Dose: 100 mcg Folic Acid (Folic Acid -) 1 mg PO DAILY [facility] Last Admin: 12/02/17 09:22 Dose: 1 mg Furosemide (Lasix -) 40 mg PO BID@0600,1400 [facility] Last Admin: 12/02/17 14:03 Dose: 40 mg Gabapentin (Neurontin -) 600 mg PO Q6HPO [facility] Last Admin: 12/02/17 11:41 Dose: 600 mg Lactulose (Cephulac (Oral Use)) 20 gm PO TID PRN PRN Reason: CONSTIPATION Last Admin: 11/28/17 11:00 Dose: 20 gm Lidocaine/Aluminum/Magnesium/Simeth (Magic Mouthwash *Sjr Formula* -) 5 ml MM Q6HPO [facility] Last Admin: 12/02/17 11:41 Dose: 5 ml Magnesium Oxide (Mag-Ox -) 400 mg PO BID [facility] Last Admin: 12/02/17 11:41 Dose: 400 mg Oxycodone HCl (Roxicodone -) 10 mg PO Q6H PRN PRN Reason: PAIN LEVEL 6-10 Last Admin: 12/02/17 10:07 Dose: 10 mg Pantoprazole Sodium (Protonix -) 40 mg PO DAILY [facility] Last Admin: 12/02/17 09:22 Dose: 40 mg Pramipexole Dihydrochloride (Mirapex -) 0.125 mg PO BID [facility] Saliva Substitute (Mouthkote Solution -) 1 applic MM BID [facility] Last Admin: 12/02/17 09:22 Dose: 1 applic Silver Sulfadiazine (Silvadene -) 1 applic TP BID [facility] Last Admin: 12/02/17 09:22 Dose: Not Given Spironolactone (Aldactone -) 50 mg PO BID [facility] Last Admin: 12/02/17 09:22 Dose: 50 mg Thiamine HCl (Vitamin B1 Injection -) 200 mg IVPB Q8H-IV [facility] Stop: 12/02/17 19:44 Last Admin: 12/02/17 09:22 Dose: 200 mg 52 year old gentleman with PMhx of Alcoholic liver cirrhosis with Hx of Hepto- renal syndrome s/p recent admission at [facility] for Ascities/SBP/Catheter associated bacteremia now presents with AMS as per medical record with Cr of 1.8. #PATRICIA in setting of Liver failure #Alcoholic Liver cirrhosis #coagulopathy in setting of liver disease #Acute on chronic anemia #Thrombocytopenia Renal function stable at this time Weights improving on current diuretics, will keep doses the same for now for paracentesis tomorrow GI following No indication for [employer] hgb improved s/p transfusion Prognosis is poor
[2017-12-02] MEDS: PRAMIPEXOLE DIHYDROCHLORIDE 0.125 MG TABLET PO SCH (21:50)
[2017-12-03] MEDS: FUROSEMIDE 40 MG TABLET (FP) PO SCH ×2 (06:44→13:04)
[2017-12-03] MEDS: GABAPENTIN 300 MG CAPSULE (FP) PO SCH ×4 (06:44→23:31)
[2017-12-03] MEDS: MAG HYDROX/ALH/SMC/DPHA/LIDO 240 ML MOUTHWASH MM SCH ×4 (06:44→23:31)
[2017-12-03 07:35] LABS: BASO % 0.7 % (0-2.0); EOS % 1.9 % (0-4.5); HEMOGLOBIN 8.8 GM/dL (11.7-16.9); LYMPH % 22.7 % (8-40); MCH 31.2 pg (25.7-33.7); MCHC 35.1 g/dl (32.0-35.9); MEAN CELL VOLUME 88.7 fl (80-96); MEAN PLT VOLUME 7.8 fl (7.5-11.1); MONO % 11.8 % (3.8-10.2); NEUT % 62.9 % (42.8-82.8); PLATELET COUNT 99 K/MM3 (134-434); RBC 2.81 M/mm3 (4.00-5.60); RDW 18.5 % (11.9-15.9); WHITE BLOOD COUNT 8.2 K/mm3 (4.0-10.0)
[2017-12-03 07:44] LABS: ANION GAP 9 (8-16); BLOOD UREA NITROGEN 32 mg/dL (7-18); CALCIUM 9.8 mg/dL (8.5-10.1); CHLORIDE 95 mmol/L (98-107); CO2 32 mmol/L (21-32); CREATININE 1.7 mg/dL (0.7-1.3); GLUCOSE,RANDOM 115 mg/dL (74-106); MAGNESIUM 1.7 mg/dL (1.8-2.4); PHOSPHOROUS 3.4 mg/dL (2.5-4.9); POTASSIUM 4.3 mmol/L (3.5-5.1); SODIUM 136 mmol/L (136-145)
[2017-12-03 07:47] LABS: INR 2.85 (0.82-1.09); PROTHROMBIN TIME (PATIENT) 32.2 SEC (9.7-13.0)
[2017-12-03] MEDS ORDERED: PT OWN MED DRAWER 7, Y5N ONE ×2 (08:44→22:19)
[2017-12-03] MEDS: oxyCODONE HCL 5 MG TABLET PO PRN ×3 (08:50→23:32)
[2017-12-03] MEDS: MAGNESIUM OXIDE 400 MG TABLET (FP) PO SCH ×2 (09:38→22:24)
[2017-12-03] MEDS: PANTOPRAZOLE 40 MG TABLET (FP) PO SCH (09:38)
[2017-12-03] MEDS: SPIRONOLACTONE 25 MG TABLET (FP) PO SCH ×2 (09:38→22:24)
[2017-12-03] MEDS: PRAMIPEXOLE DIHYDROCHLORIDE 0.125 MG TABLET PO SCH ×2 (09:38→22:23)
[2017-12-03] MEDS: CYANOCOBALAMIN (VITAMIN B-12) 100 MCG TABLET PO SCH (09:39)
[2017-12-03] MEDS: CLOTRIMAZOLE/BETAMET DIPROP 15 GM TUBE TP SCH ×2 (09:39→22:25)
[2017-12-03] MEDS: LYTES/YERBA SANTA 240 ML BOTTLE MM SCH ×2 (09:39→22:25)
[2017-12-03] MEDS: FOLIC ACID 1 MG TABLET (FP) PO SCH (09:39)
[2017-12-03] MEDS: SILVER SULFADIAZINE 1% TOP CREAM 400 GM JAR TP SCH ×2 (09:39→22:20)
--- NOTE | 2017-12-03 10:52 | PN ---
Progress Note, Physician Chief Complaint: ASLEEP FFP TRANSFUSINF FOR PARACENTESIS TODAY - Current Medication List Current Medications: Active Medications Clotrimazole (Lotrisone Cream (Small Tube)) 1 applic TP BID [facility] Last Admin: 12/03/17 09:39 Dose: 1 applic Cyanocobalamin (Vitamin B12 -) 100 mcg PO DAILY [facility] Last Admin: 12/03/17 09:39 Dose: 100 mcg Folic Acid (Folic Acid -) 1 mg PO DAILY [facility] Last Admin: 12/03/17 09:39 Dose: 1 mg Furosemide (Lasix -) 40 mg PO BID@0600,1400 [facility] Last Admin: 12/03/17 06:44 Dose: 40 mg Gabapentin (Neurontin -) 600 mg PO Q6HPO [facility] Last Admin: 12/03/17 06:44 Dose: 600 mg Lactulose (Cephulac (Oral Use)) 20 gm PO TID PRN PRN Reason: CONSTIPATION Last Admin: 11/28/17 11:00 Dose: 20 gm Lidocaine/Aluminum/Magnesium/Simeth (Magic Mouthwash *Sjr Formula* -) 5 ml MM Q6HPO [facility] Last Admin: 12/03/17 06:44 Dose: 5 ml Magnesium Oxide (Mag-Ox -) 400 mg PO BID [facility] Last Admin: 12/03/17 09:38 Dose: 400 mg Oxycodone HCl (Roxicodone -) 10 mg PO Q6H PRN PRN Reason: PAIN LEVEL 6-10 Last Admin: 12/03/17 08:50 Dose: 10 mg Pantoprazole Sodium (Protonix -) 40 mg PO DAILY [facility] Last Admin: 12/03/17 09:38 Dose: 40 mg Pramipexole Dihydrochloride (Mirapex -) 0.125 mg PO BID [facility] Last Admin: 12/03/17 09:38 Dose: 0.125 mg Saliva Substitute (Mouthkote Solution -) 1 applic MM BID [facility] Last Admin: 12/03/17 09:39 Dose: 1 applic Silver Sulfadiazine (Silvadene -) 1 applic TP BID [facility] Last Admin: 12/03/17 09:39 Dose: Not Given Spironolactone (Aldactone -) 50 mg PO BID [facility] Last Admin: 12/03/17 09:38 Dose: 50 mg - Objective Vital Signs: Vital Signs Temperature 98.2 F 12/03/17 05:23 Pulse Rate 99 H 12/03/17 05:23 Respiratory Rate 18 12/03/17 05:23 Blood Pressure 138/72 12/03/17 05:23 O2 Sat by Pulse Oximetry (%) 98 12/02/17 21:00 Constitutional: Yes: No Distress Eyes: Yes: WNL HENT: Yes: WNL Neck: Yes: WNL Cardiovascular: Yes: WNL Respiratory: Yes: WNL Gastrointestinal: Yes: Ascites, Tenderness Genitourinary: Yes: Incontinence Musculoskeletal: Yes: Muscle Weakness Extremities: Yes: WNL Edema: Yes Edema: LLE: 1+, RLE: 1+ Peripheral Pulses WNL: Yes Integumentary: Yes: Pressure Ulcer, Venous Stasis Changes Wound/Incision: Yes: Dressing Dry and Intact, Draining Neurological: Yes: Asterixis, Pre-Existing Deficit ...Motor Strength: LLE, RLE Psychiatric: Yes: Other Labs: CBC, BMP 12/03/17 07:07 12/03/17 07:07 INR, PTT INR 2.85 (0.82-1.09) H 12/03/17 07:07 Fibrinogen < 100.0 mg/dL (238-498) L* 11/28/17 07:00 Problem List - Problems (1) Anemia Code(s): D64.9 - ANEMIA, UNSPECIFIED Qualifiers: (2) Ascites due to alcoholic cirrhosis Code(s): K70.31 - ALCOHOLIC CIRRHOSIS OF LIVER WITH ASCITES (3) CHF (congestive heart failure) Code(s): I50.9 - HEART FAILURE, UNSPECIFIED (4) Encephalopathy Code(s): G93.40 - ENCEPHALOPATHY, UNSPECIFIED (5) Liver cirrhosis Code(s): K74.60 - UNSPECIFIED CIRRHOSIS OF LIVER (6) Acute kidney injury Code(s): N17.9 - ACUTE KIDNEY FAILURE, UNSPECIFIED (7) Alcohol abuse Code(s): F10.10 - ALCOHOL ABUSE, UNCOMPLICATED (8) Alcohol dependence with uncomplicated withdrawal Code(s): F10.230 - ALCOHOL DEPENDENCE WITH WITHDRAWAL, UNCOMPLICATED (9) Alcoholic cirrhosis Code(s): K70.30 - ALCOHOLIC CIRRHOSIS OF LIVER WITHOUT ASCITES Qualifiers: Ascites presence: with ascites Qualified Code(s): K70.31 - Alcoholic cirrhosis of liver with ascites (10) Bleeding Code(s): R58 - HEMORRHAGE, NOT ELSEWHERE CLASSIFIED (11) Cellulitis Code(s): L03.90 - CELLULITIS, UNSPECIFIED Qualifiers: Site of cellulitis: other site Qualified Code(s): L03.818 - Cellulitis of other sites (12) Stomatitis and mucositis Code(s): K12.1 - OTHER FORMS OF STOMATITIS; K12.30 - ORAL MUCOSITIS (ULCERATIVE) , UNSPECIFIED (13) Epistaxis not due to trauma Code(s): R04.0 - EPISTAXIS Assessment/Plan NEUROLOGY WORKUP/CONSULT APPRECIATED AND IN PROGRESS MIRAPEX STARTED, TRAMADOL STOPPED PALLIAITVE CARE CONSULT CALLED B/C PATIENT IS IN HEPATORENAL FAILURE AND NEEDS TO HAVE ADVANCED DIRECTIVES REVIEWED WITH FAMILY AND OPTION OF LIVER TRANSPLANT IS POOR. ASCITES WILL NEED PARACENTESIS FFP 6 UNITS REPEAT INR AFTER FFP TRANSFUSION POOR OVERALL PROGNOSIS BENEFIT VS RISK DISCUSSED
[2017-12-03 14:19] LABS: INR 1.83 (0.82-1.09); PROTHROMBIN TIME (PATIENT) 20.7 SEC (9.7-13.0)
--- NOTE | 2017-12-03 15:28 | PN ---
Progress Note, Physician History of Present Illness: MELDS 30 (prior to FFP). Encephalopathy grade 2. Icteric sclera. Moderately tense ascites. - Current Medication List Current Medications: Active Medications Clotrimazole (Lotrisone Cream (Small Tube)) 1 applic TP BID [facility] Last Admin: 12/03/17 09:39 Dose: 1 applic Cyanocobalamin (Vitamin B12 -) 100 mcg PO DAILY [facility] Last Admin: 12/03/17 09:39 Dose: 100 mcg Folic Acid (Folic Acid -) 1 mg PO DAILY [facility] Last Admin: 12/03/17 09:39 Dose: 1 mg Furosemide (Lasix -) 40 mg PO BID@0600,1400 [facility] Last Admin: 12/03/17 13:04 Dose: 40 mg Gabapentin (Neurontin -) 600 mg PO Q6HPO [facility] Last Admin: 12/03/17 12:01 Dose: 600 mg Lactulose (Cephulac (Oral Use)) 20 gm PO TID PRN PRN Reason: CONSTIPATION Last Admin: 11/28/17 11:00 Dose: 20 gm Lidocaine/Aluminum/Magnesium/Simeth (Magic Mouthwash *Sjr Formula* -) 5 ml MM Q6HPO [facility] Last Admin: 12/03/17 12:01 Dose: 5 ml Magnesium Oxide (Mag-Ox -) 400 mg PO BID [facility] Last Admin: 12/03/17 09:38 Dose: 400 mg Oxycodone HCl (Roxicodone -) 10 mg PO Q6H PRN PRN Reason: PAIN LEVEL 6-10 Last Admin: 12/03/17 08:50 Dose: 10 mg Pantoprazole Sodium (Protonix -) 40 mg PO DAILY [facility] Last Admin: 12/03/17 09:38 Dose: 40 mg Pramipexole Dihydrochloride (Mirapex -) 0.125 mg PO BID [facility] Last Admin: 12/03/17 09:38 Dose: 0.125 mg Saliva Substitute (Mouthkote Solution -) 1 applic MM BID [facility] Last Admin: 12/03/17 09:39 Dose: 1 applic Silver Sulfadiazine (Silvadene -) 1 applic TP BID [facility] Last Admin: 12/03/17 09:39 Dose: Not Given Spironolactone (Aldactone -) 50 mg PO BID [facility] Last Admin: 12/03/17 09:38 Dose: 50 mg - Objective Vital Signs: Vital Signs Temperature 97.4 F L 12/03/17 13:51 Pulse Rate 97 H 12/03/17 13:51 Respiratory Rate 16 12/03/17 13:51 Blood Pressure 127/72 12/03/17 13:51 O2 Sat by Pulse Oximetry (%) 95 12/03/17 09:00 Labs: CBC, BMP 12/03/17 07:07 12/03/17 07:07 INR, PTT INR 1.83 (0.82-1.09) H D 12/03/17 13:45 Fibrinogen < 100.0 mg/dL (238-498) L* 11/28/17 07:00 Problem List - Problems (1) Encephalopathy Code(s): G93.40 - ENCEPHALOPATHY, UNSPECIFIED (2) Ascites due to alcoholic cirrhosis Code(s): K70.31 - ALCOHOLIC CIRRHOSIS OF LIVER WITH ASCITES (3) Liver cirrhosis Code(s): K74.60 - UNSPECIFIED CIRRHOSIS OF LIVER (4) Alcoholic cirrhosis Code(s): K70.30 - ALCOHOLIC CIRRHOSIS OF LIVER WITHOUT ASCITES Qualifiers: Ascites presence: with ascites Qualified Code(s): K70.31 - Alcoholic cirrhosis of liver with ascites Assessment/Plan received 5 units of FFP, 1 more unit pending now prior to ultrasound guided therapeutic paracentesis. CBC, CMP in a.m. Continue Lasix and Aldactone at current doses.
--- NOTE | 2017-12-03 15:58 | PN ---
Progress Note (short form) - Note Progress Note: pt seen and examined. chart reviewed. feels tired HEENT: ALAN, EOM Intact, icteric Breasts:bilateral gynecomastia Cor: RSR, systolic murmur Lungs: diminished breath sounds Abd: soft, increasing ascites Ext:LE edema Skin: stasis LE's Last Vital Signs Temp Pulse Resp BP Pulse Ox 97.4 F L 97 H 16 127/72 95 12/03/17 13:51 12/03/17 13:51 12/03/17 13:51 12/03/17 13:51 12/03/17 09:00 CBC, BMP 12/03/17 07:07 12/03/17 07:07 Current Medications Generic Name Dose Route Start Last Admin Trade Name Freq PRN Reason Stop Dose Admin Clotrimazole 1 applic 12/01/17 11:15 12/03/17 09:39 Lotrisone Cream (Small Tube) TP 1 applic BID [facility] Administration Cyanocobalamin 100 mcg 11/24/17 10:00 12/03/17 09:39 Vitamin B12 - PO 100 mcg DAILY [facility] Administration Folic Acid 1 mg 11/24/17 10:00 12/03/17 09:39 Folic Acid - PO 1 mg DAILY [facility] Administration Furosemide 40 mg 12/01/17 06:00 12/03/17 13:04 Lasix - PO 40 mg BID@0600,1400 [facility] Administration Gabapentin 600 mg 11/27/17 13:29 12/03/17 12:01 Neurontin - PO 600 mg Q6HPO [facility] Administration Lactulose 20 gm 11/26/17 09:46 11/28/17 11:00 Cephulac (Oral Use) PO 20 gm TID PRN Administration CONSTIPATION Lidocaine/Aluminum/Magnesium/Simeth 5 ml 11/24/17 13:00 12/03/17 12:01 Magic Mouthwash *Sjr Formula* - MM 5 ml Q6HPO [facility] Administration Magnesium Oxide 400 mg 12/02/17 11:30 12/03/17 09:38 Mag-Ox - PO 400 mg BID [facility] Administration Oxycodone HCl 10 mg 12/01/17 04:10 12/03/17 08:50 Roxicodone - PO 10 mg Q6H PRN Administration PAIN LEVEL 6-10 Pantoprazole Sodium 40 mg 11/24/17 10:00 12/03/17 09:38 Protonix - PO 40 mg DAILY VANITA Administration Pramipexole Dihydrochloride 0.125 mg 12/02/17 22:00 12/03/17 09:38 Mirapex - PO 0.125 mg BID VANITA Administration Saliva Substitute 1 applic 11/28/17 22:00 12/03/17 09:39 Mouthkote Solution - MM 1 applic BID VANITA Administration Silver Sulfadiazine 1 applic 11/27/17 13:30 12/03/17 09:39 Silvadene - TP Not Given BID VANITA Spironolactone 50 mg 11/29/17 10:00 12/03/17 09:38 Aldactone - PO 50 mg BID VANITA Administration Advanced liver disease with alcoholic cirrhosis Leukopenia Anemia Thrombocytopenia Coagulopathy portal hypertension Ascites Hypersplenism Hepato-renal syndrome Encephalopathy--stable hgb stable FFPs running prior to Paracentesis
[2017-12-03 17:48] LABS: PERITONEAL RBC 1375 /mm3
[2017-12-03 21:06] LABS: TOTAL PROTEIN,PERITONEAL FLUID 3 gm/dL
[2017-12-03 21:25] LABS: PERITONEAL FLUID LYMPHOCYTE 1 %; PERITONEAL FLUID MONOCYTE 4 %; PERITONEAL FLUID NEUTROPHIL 19 %
[2017-12-03 21:26] LABS: PERITONEAL FLUID MACROPHAGE 76 %
[2017-12-04] MEDS: oxyCODONE HCL 5 MG TABLET PO PRN ×3 (06:00→20:03)
[2017-12-04] MEDS: GABAPENTIN 300 MG CAPSULE (FP) PO SCH ×3 (06:00→17:38)
[2017-12-04] MEDS: FUROSEMIDE 40 MG TABLET (FP) PO SCH ×2 (06:00→14:37)
[2017-12-04] MEDS: MAG HYDROX/ALH/SMC/DPHA/LIDO 240 ML MOUTHWASH MM SCH ×3 (06:01→17:38)
[2017-12-04 07:44] LABS: CHLORIDE 94 mmol/L (98-107); SODIUM 138 mmol/L (136-145)
[2017-12-04 07:51] LABS: ALBUMIN 3.9 g/dl (3.4-5.0); ALK PHOS 101 U/L (45-117); ANION GAP 10 (8-16); BILIRUBIN,TOTAL 8.3 mg/dL (0.2-1.0); BLOOD UREA NITROGEN 30 mg/dL (7-18); CALCIUM 9.7 mg/dL (8.5-10.1); CO2 34 mmol/L (21-32); CREATININE 1.5 mg/dL (0.7-1.3); GLUCOSE,RANDOM 129 mg/dL (74-106); INR 2.12 (0.82-1.09); SGOT/AST 40 U/L (15-37); SGPT/ALT < 6 U/L (12-78); TOT PROT 7.7 g/dl (6.4-8.2)
[2017-12-04 07:56] LABS: HEMOGLOBIN 7.5 GM/dL (11.7-16.9); MCH 31.3 pg (25.7-33.7); MCHC 35.6 g/dl (32.0-35.9); MEAN CELL VOLUME 87.8 fl (80-96); PLATELET COUNT 75 K/MM3 (134-434); RBC 2.39 M/mm3 (4.00-5.60); RDW 17.4 % (11.9-15.9)
[2017-12-04] MEDS ORDERED: PT OWN MED DRAWER 7, Y5N ONE (08:59)
--- NOTE | 2017-12-04 09:19 | PN ---
Progress Note, Physician - Current Medication List Current Medications: Active Medications Clotrimazole (Lotrisone Cream (Small Tube)) 1 applic TP BID [facility] Last Admin: 12/03/17 22:25 Dose: 1 applic Cyanocobalamin (Vitamin B12 -) 100 mcg PO DAILY [facility] Last Admin: 12/03/17 09:39 Dose: 100 mcg Folic Acid (Folic Acid -) 1 mg PO DAILY [facility] Last Admin: 12/03/17 09:39 Dose: 1 mg Furosemide (Lasix -) 40 mg PO BID@0600,1400 [facility] Last Admin: 12/04/17 06:00 Dose: 40 mg Gabapentin (Neurontin -) 600 mg PO Q6HPO [facility] Last Admin: 12/04/17 06:00 Dose: 600 mg Lactulose (Cephulac (Oral Use)) 20 gm PO TID PRN PRN Reason: CONSTIPATION Last Admin: 11/28/17 11:00 Dose: 20 gm Lidocaine/Aluminum/Magnesium/Simeth (Magic Mouthwash *Sjr Formula* -) 5 ml MM Q6HPO [facility] Last Admin: 12/04/17 06:01 Dose: 5 ml Magnesium Oxide (Mag-Ox -) 400 mg PO BID [facility] Last Admin: 12/03/17 22:24 Dose: 400 mg Oxycodone HCl (Roxicodone -) 10 mg PO Q6H PRN PRN Reason: PAIN LEVEL 6-10 Last Admin: 12/04/17 06:00 Dose: 10 mg Pantoprazole Sodium (Protonix -) 40 mg PO DAILY [facility] Last Admin: 12/03/17 09:38 Dose: 40 mg Pramipexole Dihydrochloride (Mirapex -) 0.125 mg PO BID [facility] Last Admin: 12/03/17 22:23 Dose: 0.125 mg Saliva Substitute (Mouthkote Solution -) 1 applic MM BID [facility] Last Admin: 12/03/17 22:25 Dose: 1 applic Silver Sulfadiazine (Silvadene -) 1 applic TP BID [facility] Last Admin: 12/03/17 22:20 Dose: Not Given Spironolactone (Aldactone -) 50 mg PO BID [facility] Last Admin: 12/03/17 22:24 Dose: 50 mg - Objective Vital Signs: Vital Signs Temperature 97.9 F 12/04/17 06:00 Pulse Rate 95 H 12/04/17 06:00 Respiratory Rate 20 12/04/17 06:00 Blood Pressure 118/67 12/04/17 06:00 O2 Sat by Pulse Oximetry (%) 98 12/03/17 20:30 Labs: CBC, BMP 12/04/17 06:00 12/04/17 06:00 INR, PTT INR 2.12 (0.82-1.09) H 12/04/17 06:00 Fibrinogen < 100.0 mg/dL (238-498) L* 11/28/17 07:00 Assessment/Plan - Problems (1) Anemia Assessment/Plan: -Hematology and GI consults noted -transfuse -monitor trend -reverse INR if higher than 3.0 Code(s): D64.9 - ANEMIA, UNSPECIFIED Qualifiers: (2) Ascites due to alcoholic cirrhosis Assessment/Plan: -seen by nephrology and GI -albumin -furosemide PRN -Paracentesis done yesterday Code(s): K70.31 - ALCOHOLIC CIRRHOSIS OF LIVER WITH ASCITES (3) CHF (congestive heart failure) Assessment/Plan: -furosemide PRN -I&O -daily weights -CXR reviewed Code(s): I50.9 - HEART FAILURE, UNSPECIFIED (4) Liver cirrhosis Assessment/Plan: -GI consult -was seen by Dr Barajas when at [facility] Code(s): K74.60 - UNSPECIFIED CIRRHOSIS OF LIVER (5) Acute kidney injury Code(s): N17.9 - ACUTE KIDNEY FAILURE, UNSPECIFIED (6) Hepatorenal syndrome Code(s): K76.7 - HEPATORENAL SYNDROME (7) Sepsis Assessment/Plan: -Completed course of Cefazolin 2 g BID -ID consult - Microbiology 11/26/17 16:30 Peritoneal Fluid AFB Smear Concentration - Final 11/26/17 16:30 Peritoneal Fluid Mycobacterial Culture - Preliminary 11/26/17 16:30 Peritoneal Fluid ADIA Preparation - Preliminary 11/26/17 16:30 Peritoneal Fluid Fungal Culture - Preliminary 11/26/17 16:30 Peritoneal Fluid Gram Stain - Final 11/26/17 16:30 Peritoneal Fluid Body Fluid Culture - Final NO GROWTH OF AEROBIC ORGANISMS AFTER 48 HOURS INCUBATION 11/26/17 16:30 Peritoneal Fluid Anaerobic Culture - Final NO ANAEROBES WERE ISOLATED 11/23/17 20:15 Blood - Peripheral Venous Blood Culture - Final NO GROWTH AFTER 5 DAYS INCUBATION 11/23/17 20:15 Blood - Peripheral Venous Blood Culture - Final NO GROWTH AFTER 5 DAYS INCUBATION 11/24/17 00:50 Urine - Urine Clean Catch Urine Culture - Final NO GROWTH OBTAINED 11/25/17 02:20 Stool Clostridium difficile Antigen (MASTER) - Final 11/25/17 02:20 Stool Clostridium difficile Toxin Assay - Final Code(s): A41.9 - SEPSIS, UNSPECIFIED ORGANISM
[2017-12-04] MEDS: PRAMIPEXOLE DIHYDROCHLORIDE 0.125 MG TABLET PO SCH ×2 (09:58→22:10)
[2017-12-04] MEDS: CYANOCOBALAMIN (VITAMIN B-12) 100 MCG TABLET PO SCH (09:59)
[2017-12-04] MEDS: SPIRONOLACTONE 25 MG TABLET (FP) PO SCH ×2 (09:59→22:10)
[2017-12-04] MEDS: LYTES/YERBA SANTA 240 ML BOTTLE MM SCH ×2 (09:59→22:11)
[2017-12-04] MEDS: PANTOPRAZOLE 40 MG TABLET (FP) PO SCH (09:59)
[2017-12-04] MEDS: FOLIC ACID 1 MG TABLET (FP) PO SCH (09:59)
[2017-12-04] MEDS: CLOTRIMAZOLE/BETAMET DIPROP 15 GM TUBE TP SCH ×2 (09:59→22:11)
[2017-12-04] MEDS: SILVER SULFADIAZINE 1% TOP CREAM 400 GM JAR TP SCH ×2 (09:59→22:12)
[2017-12-04] MEDS: MAGNESIUM OXIDE 400 MG TABLET (FP) PO SCH ×2 (09:59→22:10)
--- NOTE | 2017-12-04 11:34 | PN ---
Progress Note (short form) - Note Progress Note: Renal follow up for PATRICIA on CKD Pt seen and examined at the bedside awake and alert at the bedside, reports that the pt looks more yellow today s/p paracentesis yesterday with 3L removed no cp, abd pain, N/V/D making urine Vital Signs Temperature 97.9 F 12/04/17 06:00 Pulse Rate 95 H 12/04/17 06:00 Respiratory Rate 20 12/04/17 06:00 Blood Pressure 118/67 12/04/17 06:00 O2 Sat by Pulse Oximetry (%) 98 12/03/17 20:30 Intake & Output 12/01/17 12/02/17 12/03/17 12/04/17 23:59 23:59 23:59 23:59 Intake Total 245 836 8262 Balance 041 606 3371 Weight 90.945 kg 89.131 kg 87.815 kg 86.239 kg NAD, awake and alert + jaundice no JVD, neck supple RRR, No M/R CTA Obese, + ascities, no tenderness Trace sacral edema, 1+ LE edema No bladder distension CBC, BMP 12/04/17 06:00 12/04/17 06:00 Current Medications Clotrimazole (Lotrisone Cream (Small Tube)) 1 applic TP BID [facility] Last Admin: 12/04/17 09:59 Dose: 1 applic Cyanocobalamin (Vitamin B12 -) 100 mcg PO DAILY [facility] Last Admin: 12/04/17 09:59 Dose: 100 mcg Folic Acid (Folic Acid -) 1 mg PO DAILY [facility] Last Admin: 12/04/17 09:59 Dose: 1 mg Furosemide (Lasix -) 40 mg PO BID@0600,1400 [facility] Last Admin: 12/04/17 06:00 Dose: 40 mg Gabapentin (Neurontin -) 600 mg PO Q6HPO [facility] Last Admin: 12/04/17 06:00 Dose: 600 mg Lactulose (Cephulac (Oral Use)) 20 gm PO TID PRN PRN Reason: CONSTIPATION Last Admin: 11/28/17 11:00 Dose: 20 gm Lidocaine/Aluminum/Magnesium/Simeth (Magic Mouthwash *Sjr Formula* -) 5 ml MM Q6HPO [facility] Last Admin: 12/04/17 06:01 Dose: 5 ml Magnesium Oxide (Mag-Ox -) 400 mg PO BID [facility] Last Admin: 12/04/17 09:59 Dose: 400 mg Oxycodone HCl (Roxicodone -) 10 mg PO Q6H PRN PRN Reason: PAIN LEVEL 6-10 Last Admin: 12/04/17 06:00 Dose: 10 mg Pantoprazole Sodium (Protonix -) 40 mg PO DAILY [facility] Last Admin: 12/04/17 09:59 Dose: 40 mg Pramipexole Dihydrochloride (Mirapex -) 0.125 mg PO BID [facility] Last Admin: 12/04/17 09:58 Dose: 0.125 mg Saliva Substitute (Mouthkote Solution -) 1 applic MM BID [facility] Last Admin: 12/04/17 09:59 Dose: 1 applic Silver Sulfadiazine (Silvadene -) 1 applic TP BID [facility] Last Admin: 12/04/17 09:59 Dose: Not Given Spironolactone (Aldactone -) 50 mg PO BID [facility] Last Admin: 12/04/17 09:59 Dose: 50 mg 52 year old gentleman with PMhx of 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 #PATRICIA in setting of Liver failure #Alcoholic Liver cirrhosis #coagulopathy in setting of liver disease #Acute on chronic anemia #Thrombocytopenia renal function gradually improving continue Lasix and Aldactone BID as weights improving Hgb lower today then yesterday despite getting PRBC/FFP, continue PPI GI follow up Prognosis is poor Thank you Ronaldo Gonzalez DO
[2017-12-05] MEDS: oxyCODONE HCL 5 MG TABLET PO PRN ×4 (01:52→23:13)
[2017-12-05] MEDS: GABAPENTIN 300 MG CAPSULE (FP) PO SCH ×5 (01:52→23:15)
[2017-12-05] MEDS: MAG HYDROX/ALH/SMC/DPHA/LIDO 240 ML MOUTHWASH MM SCH ×5 (01:52→23:15)
[2017-12-05] MEDS: FUROSEMIDE 40 MG TABLET (FP) PO SCH ×2 (06:53→13:37)
[2017-12-05 07:22] LABS: BASO % 0.8 % (0-2.0); EOS % 1.2 % (0-4.5); HEMATOCRIT 24.2 % (35.4-49); HEMOGLOBIN 8.5 GM/dL (11.7-16.9); LYMPH % 26.1 % (8-40); MCHC 35.3 g/dl (32.0-35.9); MEAN CELL VOLUME 87.9 fl (80-96); MEAN PLT VOLUME 7.9 fl (7.5-11.1); MONO % 11.7 % (3.8-10.2); NEUT % 60.2 % (42.8-82.8); PLATELET COUNT 77 K/MM3 (134-434); RBC 2.75 M/mm3 (4.00-5.60); RDW 17.9 % (11.9-15.9); WHITE BLOOD COUNT 6.7 K/mm3 (4.0-10.0)
[2017-12-05 07:41] LABS: ALBUMIN 4.2 g/dl (3.4-5.0); ANION GAP 6 (8-16); BLOOD UREA NITROGEN 28 mg/dL (7-18); CALCIUM 9.7 mg/dL (8.5-10.1); CHLORIDE 95 mmol/L (98-107); CO2 35 mmol/L (21-32); GLUCOSE,RANDOM 114 mg/dL (74-106); POTASSIUM 4.4 mmol/L (3.5-5.1); SGOT/AST 48 U/L (15-37); SGPT/ALT 7 U/L (12-78); SODIUM 136 mmol/L (136-145); TOT PROT 8.6 g/dl (6.4-8.2)
[2017-12-05 07:44] LABS: ALK PHOS 119 U/L (45-117); BILIRUBIN,TOTAL 10.6 mg/dL (0.2-1.0); CREATININE 1.6 mg/dL (0.7-1.3)
[2017-12-05] MEDS ORDERED: PT OWN MED DRAWER 7, Y5N ONE ×2 (08:53→23:04)
[2017-12-05] MEDS: FOLIC ACID 1 MG TABLET (FP) PO SCH (09:01)
[2017-12-05] MEDS: PANTOPRAZOLE 40 MG TABLET (FP) PO SCH (09:01)
[2017-12-05] MEDS: CYANOCOBALAMIN (VITAMIN B-12) 100 MCG TABLET PO SCH (09:01)
[2017-12-05] MEDS: PRAMIPEXOLE DIHYDROCHLORIDE 0.125 MG TABLET PO SCH ×2 (09:01→23:14)
[2017-12-05] MEDS: SPIRONOLACTONE 25 MG TABLET (FP) PO SCH ×2 (09:01→23:14)
[2017-12-05] MEDS: MAGNESIUM OXIDE 400 MG TABLET (FP) PO SCH ×2 (09:01→23:13)
[2017-12-05] MEDS: LYTES/YERBA SANTA 240 ML BOTTLE MM SCH ×2 (09:03→23:14)
[2017-12-05] MEDS: CLOTRIMAZOLE/BETAMET DIPROP 15 GM TUBE TP SCH ×2 (09:03→23:14)
[2017-12-05] MEDS: SILVER SULFADIAZINE 1% TOP CREAM 400 GM JAR TP SCH ×2 (09:03→23:15)
--- NOTE | 2017-12-05 10:03 | PN ---
Progress Note, Physician - Current Medication List Current Medications: Active Medications Clotrimazole (Lotrisone Cream (Small Tube)) 1 applic TP BID [facility] Last Admin: 12/05/17 09:03 Dose: 1 applic Cyanocobalamin (Vitamin B12 -) 100 mcg PO DAILY [facility] Last Admin: 12/05/17 09:01 Dose: 100 mcg Folic Acid (Folic Acid -) 1 mg PO DAILY [facility] Last Admin: 12/05/17 09:01 Dose: 1 mg Furosemide (Lasix -) 40 mg PO BID@0600,1400 [facility] Last Admin: 12/05/17 06:53 Dose: 40 mg Gabapentin (Neurontin -) 600 mg PO Q6HPO [facility] Last Admin: 12/05/17 06:53 Dose: 600 mg Lactulose (Cephulac (Oral Use)) 20 gm PO TID PRN PRN Reason: CONSTIPATION Last Admin: 11/28/17 11:00 Dose: 20 gm Lidocaine/Aluminum/Magnesium/Simeth (Magic Mouthwash *Sjr Formula* -) 5 ml MM Q6HPO [facility] Last Admin: 12/05/17 06:53 Dose: 5 ml Magnesium Oxide (Mag-Ox -) 400 mg PO BID [facility] Last Admin: 12/05/17 09:01 Dose: 400 mg Oxycodone HCl (Roxicodone -) 10 mg PO Q6H PRN PRN Reason: PAIN LEVEL 6-10 Last Admin: 12/05/17 09:01 Dose: 10 mg Pantoprazole Sodium (Protonix -) 40 mg PO DAILY [facility] Last Admin: 12/05/17 09:01 Dose: 40 mg Pramipexole Dihydrochloride (Mirapex -) 0.125 mg PO BID [facility] Last Admin: 12/05/17 09:01 Dose: 0.125 mg Saliva Substitute (Mouthkote Solution -) 1 applic MM BID [facility] Last Admin: 12/05/17 09:03 Dose: 1 applic Silver Sulfadiazine (Silvadene -) 1 applic TP BID [facility] Last Admin: 12/05/17 09:03 Dose: Not Given Spironolactone (Aldactone -) 50 mg PO BID [facility] Last Admin: 12/05/17 09:01 Dose: 50 mg - Objective Vital Signs: Vital Signs Temperature 98.2 F 12/05/17 06:00 Pulse Rate 99 H 12/05/17 06:00 Respiratory Rate 20 12/05/17 06:00 Blood Pressure 135/70 12/05/17 06:00 O2 Sat by Pulse Oximetry (%) 99 12/04/17 21:00 Cardiovascular: Yes: S1, S2 Respiratory: Yes: Regular, CTA Bilaterally Gastrointestinal: Yes: Normal Bowel Sounds, Soft, Ascites Edema: Yes Labs: CBC, BMP 12/05/17 06:30 12/05/17 06:30 INR, PTT INR 2.12 (0.82-1.09) H 12/04/17 06:00 Fibrinogen < 100.0 mg/dL (238-498) L* 11/28/17 07:00 Assessment/Plan - Problems (1) Anemia Assessment/Plan: -Hematology and GI consults noted -transfused 2 units on 12/04 -monitor trend -reverse INR if higher than 3.0 Code(s): D64.9 - ANEMIA, UNSPECIFIED Qualifiers: (2) Ascites due to alcoholic cirrhosis Assessment/Plan: -seen by nephrology and GI -albumin -furosemide -Paracentesis done Code(s): K70.31 - ALCOHOLIC CIRRHOSIS OF LIVER WITH ASCITES (3) CHF (congestive heart failure) Assessment/Plan: -furosemide PRN -I&O -daily weights -CXR reviewed Code(s): I50.9 - HEART FAILURE, UNSPECIFIED (4) Liver cirrhosis Assessment/Plan: -GI consult -was seen by Dr Barajas when at [facility] Code(s): K74.60 - UNSPECIFIED CIRRHOSIS OF LIVER (5) Acute kidney injury Code(s): N17.9 - ACUTE KIDNEY FAILURE, UNSPECIFIED (6) Hepatorenal syndrome Code(s): K76.7 - HEPATORENAL SYNDROME (7) Sepsis Assessment/Plan: -Completed course of Cefazolin 2 g BID -ID consult - Microbiology 11/26/17 16:30 Peritoneal Fluid AFB Smear Concentration - Final 11/26/17 16:30 Peritoneal Fluid Mycobacterial Culture - Preliminary 11/26/17 16:30 Peritoneal Fluid ADIA Preparation - Preliminary 11/26/17 16:30 Peritoneal Fluid Fungal Culture - Preliminary 11/26/17 16:30 Peritoneal Fluid Gram Stain - Final 11/26/17 16:30 Peritoneal Fluid Body Fluid Culture - Final NO GROWTH OF AEROBIC ORGANISMS AFTER 48 HOURS INCUBATION 11/26/17 16:30 Peritoneal Fluid Anaerobic Culture - Final NO ANAEROBES WERE ISOLATED 11/23/17 20:15 Blood - Peripheral Venous Blood Culture - Final NO GROWTH AFTER 5 DAYS INCUBATION 11/23/17 20:15 Blood - Peripheral Venous Blood Culture - Final NO GROWTH AFTER 5 DAYS INCUBATION 11/24/17 00:50 Urine - Urine Clean Catch Urine Culture - Final NO GROWTH OBTAINED 11/25/17 02:20 Stool Clostridium difficile Antigen (MASTER) - Final 11/25/17 02:20 Stool Clostridium difficile Toxin Assay - Final Code(s): A41.9 - SEPSIS, UNSPECIFIED ORGANISM
--- NOTE | 2017-12-05 12:46 | PN ---
GI Progress Note Subjective: Dr. Shell covering for Dr. Craig who resumes care 12/06 Called by nurse to clarify lactulose Patient found sitting up eating lunch. bedside - Objective Vital Signs: Vital Signs Temperature 98.4 F 12/05/17 10:00 Pulse Rate 97 H 12/05/17 10:00 Respiratory Rate 18 12/05/17 10:00 Blood Pressure 132/68 12/05/17 10:00 O2 Sat by Pulse Oximetry (%) 95 12/05/17 09:00 Constitutional: Calm Eyes: Yes: Sclera Icterus Cardiovascular: Yes: Regular Rate and Rhythm Respiratory: Yes: CTA Bilaterally Gastrointestinal Inspection: Yes: Distention ...Auscultate: Yes: Normoactive Bowel Sounds ...Palpate: Yes: Soft. No: Tenderness ...Percussion: No: Tympanitic Edema: Yes (b/l LE edema w/ erythema ) Neurological: Yes: Alert, Oriented (x person, place, partially to time), Asterixis (mild asterexis) Labs: CBC, BMP 12/05/17 06:30 12/05/17 06:30 INR, PTT INR 2.12 (0.82-1.09) H 12/04/17 06:00 Fibrinogen < 100.0 mg/dL (238-498) L* 11/28/17 07:00 Problem List - Problems (1) Alcoholic cirrhosis Assessment/Plan: Decompensated alcoholic cirrhosis: Currently not actively on liver xplant list due to noncompliance with sobriety Grade 1-2 HE Added lactulose 20g once daily. Monitor mental status. Checked ammonia level His stated that she will be contacting [facility] to arrange follow-up They are aware of overall poor prognosis of his advanced liver disease Code(s): K70.30 - ALCOHOLIC CIRRHOSIS OF LIVER WITHOUT ASCITES Qualifiers: Ascites presence: with ascites Qualified Code(s): K70.31 - Alcoholic cirrhosis of liver with ascites
[2017-12-05] MEDS: LACTULOSE 20 GM/30 ML UDC (FOR ORAL USE ONLY) PO SCH (13:37)
[2017-12-06] MEDS: GABAPENTIN 300 MG CAPSULE (FP) PO SCH ×3 (06:12→17:33)
[2017-12-06] MEDS: MAG HYDROX/ALH/SMC/DPHA/LIDO 240 ML MOUTHWASH MM SCH ×3 (06:12→18:08)
[2017-12-06] MEDS: FUROSEMIDE 40 MG TABLET (FP) PO SCH ×2 (06:12→14:29)
[2017-12-06] MEDS: oxyCODONE HCL 5 MG TABLET PO PRN ×2 (06:14→22:39)
[2017-12-06 07:53] LABS: BASO % 0.4 % (0-2.0); EOS % 1.6 % (0-4.5); HEMATOCRIT 22.7 % (35.4-49); HEMOGLOBIN 8.1 GM/dL (11.7-16.9); LYMPH % 19.4 % (8-40); MCH 31.3 pg (25.7-33.7); MCHC 35.5 g/dl (32.0-35.9); MEAN CELL VOLUME 88.1 fl (80-96); MONO % 11.8 % (3.8-10.2); NEUT % 66.8 % (42.8-82.8); RBC 2.58 M/mm3 (4.00-5.60); RDW 18.2 % (11.9-15.9); WHITE BLOOD COUNT 6.9 K/mm3 (4.0-10.0)
[2017-12-06 08:24] LABS: ALBUMIN 3.9 g/dl (3.4-5.0); ANION GAP 5 (8-16); BLOOD UREA NITROGEN 30 mg/dL (7-18); CALCIUM 9.7 mg/dL (8.5-10.1); CHLORIDE 94 mmol/L (98-107); CO2 36 mmol/L (21-32); GLUCOSE,RANDOM 104 mg/dL (74-106); POTASSIUM 4.4 mmol/L (3.5-5.1); SGOT/AST 46 U/L (15-37); SGPT/ALT 7 U/L (12-78); SODIUM 135 mmol/L (136-145)
[2017-12-06 08:27] LABS: ALK PHOS 111 U/L (45-117); BILIRUBIN,TOTAL 10.4 mg/dL (0.2-1.0); CREATININE 1.6 mg/dL (0.7-1.3); TOT PROT 8.1 g/dl (6.4-8.2)
[2017-12-06] MEDS ORDERED: PT OWN MED DRAWER 7, Y5N ONE ×2 (10:24→21:45)
[2017-12-06] MEDS: FOLIC ACID 1 MG TABLET (FP) PO SCH (10:35)
[2017-12-06] MEDS: PANTOPRAZOLE 40 MG TABLET (FP) PO SCH (10:35)
[2017-12-06] MEDS: PRAMIPEXOLE DIHYDROCHLORIDE 0.125 MG TABLET PO SCH ×2 (10:35→22:43)
[2017-12-06] MEDS: SPIRONOLACTONE 25 MG TABLET (FP) PO SCH ×2 (10:35→22:39)
[2017-12-06] MEDS: CLOTRIMAZOLE/BETAMET DIPROP 15 GM TUBE TP SCH ×2 (10:35→22:39)
[2017-12-06] MEDS: CYANOCOBALAMIN (VITAMIN B-12) 100 MCG TABLET PO SCH (10:35)
[2017-12-06] MEDS: LACTULOSE 20 GM/30 ML UDC (FOR ORAL USE ONLY) PO SCH (10:35)
[2017-12-06] MEDS: MAGNESIUM OXIDE 400 MG TABLET (FP) PO SCH ×2 (10:35→22:39)
[2017-12-06] MEDS: SILVER SULFADIAZINE 1% TOP CREAM 400 GM JAR TP SCH ×2 (10:36→22:39)
[2017-12-06 10:43] LABS: PLATELET COUNT 69 K/MM3 (134-434)
--- NOTE | 2017-12-06 11:00 | PN ---
Progress Note, Physician History of Present Illness: MELDS 27. Encephalopathy grade 2-3. Icteric sclera. Myoclonus, asterixis. Soft abdomen. - Current Medication List Current Medications: Active Medications Clotrimazole (Lotrisone Cream (Small Tube)) 1 applic TP BID [facility] Last Admin: 12/06/17 10:35 Dose: 1 applic Cyanocobalamin (Vitamin B12 -) 100 mcg PO DAILY [facility] Last Admin: 12/06/17 10:35 Dose: 100 mcg Folic Acid (Folic Acid -) 1 mg PO DAILY [facility] Last Admin: 12/06/17 10:35 Dose: 1 mg Furosemide (Lasix -) 40 mg PO BID@0600,1400 [facility] Last Admin: 12/06/17 06:12 Dose: 40 mg Gabapentin (Neurontin -) 600 mg PO Q6HPO [facility] Last Admin: 12/06/17 06:12 Dose: 600 mg Lactulose (Cephulac (Oral Use)) 20 gm PO DAILY [facility] Last Admin: 12/06/17 10:35 Dose: 20 gm Lidocaine/Aluminum/Magnesium/Simeth (Magic Mouthwash *Sjr Formula* -) 5 ml MM Q6HPO [facility] Last Admin: 12/06/17 06:12 Dose: 5 ml Magnesium Oxide (Mag-Ox -) 400 mg PO BID [facility] Last Admin: 12/06/17 10:35 Dose: 400 mg Oxycodone HCl (Roxicodone -) 10 mg PO Q6H PRN PRN Reason: PAIN LEVEL 6-10 Last Admin: 12/06/17 06:14 Dose: 10 mg Pantoprazole Sodium (Protonix -) 40 mg PO DAILY [facility] Last Admin: 12/06/17 10:35 Dose: 40 mg Pramipexole Dihydrochloride (Mirapex -) 0.125 mg PO BID [facility] Last Admin: 12/06/17 10:35 Dose: 0.125 mg Saliva Substitute (Mouthkote Solution -) 1 applic MM BID [facility] Last Admin: 12/05/17 23:14 Dose: 1 applic Silver Sulfadiazine (Silvadene -) 1 applic TP BID [facility] Last Admin: 12/06/17 10:36 Dose: Not Given Spironolactone (Aldactone -) 50 mg PO BID [facility] Last Admin: 12/06/17 10:35 Dose: 50 mg - Objective Vital Signs: Vital Signs Temperature 98.9 F 12/06/17 06:00 Pulse Rate 106 H 12/06/17 06:00 Respiratory Rate 18 12/06/17 06:00 Blood Pressure 136/73 12/06/17 06:00 O2 Sat by Pulse Oximetry (%) 94 L 12/05/17 21:00 Constitutional: Yes: Anxious Eyes: Yes: Sclera Icterus HENT: Yes: Other ( old blood, mucositis) Cardiovascular: No: Bradycardia, Tachycardia Respiratory: Yes: Regular Gastrointestinal: Yes: Soft, Ascites. No: Distention, Melena, Rectal Bleeding, Tenderness, Vomiting Neurological: Yes: Asterixis, Lethargy, Other ( encephalopathic, grade 2-3) Labs: CBC, BMP 12/06/17 07:20 12/06/17 07:20 INR, PTT INR 2.12 (0.82-1.09) H 12/04/17 06:00 Fibrinogen < 100.0 mg/dL (238-498) L* 11/28/17 07:00 Laboratory Last Values WBC 6.9 K/mm3 (4.0-10.0) 12/06/17 07:20 RBC 2.58 M/mm3 (4.00-5.60) L 12/06/17 07:20 Hgb 8.1 GM/dL (11.7-16.9) L 12/06/17 07:20 Hct 22.7 % (35.4-49) L 12/06/17 07:20 MCV 88.1 fl (80-96) 12/06/17 07:20 MCH 31.3 pg (25.7-33.7) 12/06/17 07:20 MCHC 35.5 g/dl (32.0-35.9) 12/06/17 07:20 RDW 18.2 % (11.9-15.9) H 12/06/17 07:20 Plt Count 69 K/MM3 (134-434) L 12/06/17 07:20 MPV 8.0 fl (7.5-11.1) 12/06/17 07:20 Neutrophils % 66.8 % (42.8-82.8) 12/06/17 07:20 Lymphocytes % 19.4 % (8-40) D 12/06/17 07:20 Monocytes % 11.8 % (3.8-10.2) H 12/06/17 07:20 Eosinophils % 1.6 % (0-4.5) 12/06/17 07:20 Basophils % 0.4 % (0-2.0) 12/06/17 07:20 Platelet Estimate Decreased 11/30/17 06:00 Platelet Comment No clumping noted 12/06/17 07:20 PT with INR 24.00 SEC (9.7-13.0) H 12/04/17 06:00 INR 2.12 (0.82-1.09) H 12/04/17 06:00 Fibrinogen < 100.0 mg/dL (238-498) L* 11/28/17 07:00 Sodium 135 mmol/L (136-145) L 12/06/17 07:20 Potassium 4.4 mmol/L (3.5-5.1) 12/06/17 07:20 Chloride 94 mmol/L (98-107) L 12/06/17 07:20 Carbon Dioxide 36 mmol/L (21-32) H 12/06/17 07:20 Anion Gap 5 (8-16) L 12/06/17 07:20 BUN 30 mg/dL (7-18) H 12/06/17 07:20 Creatinine 1.6 mg/dL (0.7-1.3) H 12/06/17 07:20 Creat Clearance w eGFR 45.27 (>60) 12/06/17 07:20 Random Glucose 104 mg/dL (74-106) 12/06/17 07:20 Calcium 9.7 mg/dL (8.5-10.1) 12/06/17 07:20 Phosphorus 3.4 mg/dL (2.5-4.9) 12/03/17 07:07 Magnesium 1.7 mg/dL (1.8-2.4) L 12/03/17 07:07 Iron 111 ug/dL (38-169) 11/24/17 06:08 TIBC < 128 ug/dL (250-450) L 11/24/17 06:08 Iron Saturation > 87 % (15-55) H 11/24/17 06:08 Ferritin 2868.722 ng/ml (16.4-293.9) H 11/24/17 06:08 Total Bilirubin 10.4 mg/dL (0.2-1.0) H 12/06/17 07:20 Direct Bilirubin 2.9 mg/dL (0.0-0.2) H D 12/02/17 10:59 AST 46 U/L (15-37) H 12/06/17 07:20 ALT 7 U/L (12-78) L 12/06/17 07:20 Alkaline Phosphatase 111 U/L (45-117) 12/06/17 07:20 Ammonia 60.79 umol/L (11-32) H 12/06/17 07:20 Creatine Kinase 24 IU/L (39-308) L 11/23/17 20:38 Troponin I 0.03 ng/ml (0.00-0.05) D 11/23/17 20:38 B-Natriuretic Peptide 7258.68 pg/ml (5-125) H 11/23/17 20:38 Total Protein 8.1 g/dl (6.4-8.2) 12/06/17 07:20 Albumin 3.9 g/dl (3.4-5.0) 12/06/17 07:20 Lipase 85 U/L (73-393) 11/23/17 20:38 Urine Color Straw 11/24/17 00:50 Urine Appearance Clear 11/24/17 00:50 Urine pH 7.0 (5.0-8.0) D 11/24/17 00:50 Ur Specific [place] 1.004 (1.001-1.035) 11/24/17 00:50 Urine Protein Negative (NEGATIVE) 11/24/17 00:50 Urine Glucose (UA) Negative (NEGATIVE) 11/24/17 00:50 Urine Ketones Negative (NEGATIVE) 11/24/17 00:50 Urine Blood Negative (NEGATIVE) 11/24/17 00:50 Urine Nitrite Negative (NEGATIVE) 11/24/17 00:50 Urine Bilirubin Negative (<2.0 mg/dL) 11/24/17 00:50 Urine Urobilinogen Negative mg/dL (0.2-1.0) 11/24/17 00:50 Ur Leukocyte Esterase Negative (NEGATIVE) 11/24/17 00:50 Peritoneal WBC 201 /mm3 12/03/17 16:30 Peritoneal RBC 1375 /mm3 12/03/17 16:30 Periton Neutrophils 19 % 05/04/18 16:30 Periton Lymphocytes 1 % 12/03/17 16:30 Peritoneal Monocytes 4 % 12/03/17 16:30 Periton Mesothelial 95 % 11/26/17 16:30 Periton Macrophages 76 % 12/03/17 16:30 Peritoneal Tot Protein 3 gm/dL 12/03/17 16:30 Peritoneal Albumin 2 g/dL 12/03/17 16:30 Peritoneal LDH 68 IU/L 12/03/17 16:30 Peritoneal Glucose 148 mg/dL 12/03/17 16:30 Peritoneal Amylase 10 U/L 12/03/17 16:30 Peritoneal Triglycerid 41 mg/dL 11/26/17 16:30 Stool Occult Blood Positive (NEGATIVE) 11/25/17 02:20 Acetone, Qual Negative (NEGATIVE) 11/23/17 20:38 Blood Type O POSITIVE 12/04/17 08:50 Antibody Screen Negative 12/04/17 08:50 Crossmatch See Detail 12/04/17 08:50 Problem List - Problems (1) Encephalopathy Code(s): G93.40 - ENCEPHALOPATHY, UNSPECIFIED (2) Ascites due to alcoholic cirrhosis Code(s): K70.31 - ALCOHOLIC CIRRHOSIS OF LIVER WITH ASCITES (3) Liver cirrhosis Code(s): K74.60 - UNSPECIFIED CIRRHOSIS OF LIVER (4) Alcoholic cirrhosis Code(s): K70.30 - ALCOHOLIC CIRRHOSIS OF LIVER WITHOUT ASCITES Qualifiers: Ascites presence: with ascites Qualified Code(s): K70.31 - Alcoholic cirrhosis of liver with ascites Assessment/Plan Status post therapeutic paracentesis. Abdominal girth has improved. Renal function stable. More encephalopathic today. Meld 29. Clinically worse. Left a message with patient's clip riveter at [facility], Dr. Ector rosenberg at [phone] to call me back to discuss plan of care going forward. If not transplant candidate, consider hospice care. Continue Aldactone , Lasix, rifaximin, lactulose and low-salt diet, supportive care. Prognosis is grave
[2017-12-06] MEDS: LYTES/YERBA SANTA 240 ML BOTTLE MM SCH ×2 (12:03→22:39)
--- NOTE | 2017-12-06 14:38 | DS ---
Physical Examination Vital Signs: Vital Signs Temperature 98.9 F 12/06/17 06:00 Pulse Rate 106 H 12/06/17 06:00 Respiratory Rate 18 12/06/17 06:00 Blood Pressure 136/73 12/06/17 06:00 O2 Sat by Pulse Oximetry (%) 94 L 12/05/17 21:00 Constitutional: Yes: Mild Distress Eyes: Yes: Sclera Icterus HENT: Yes: WNL Neck: Yes: WNL Cardiovascular: Yes: WNL Respiratory: Yes: WNL Gastrointestinal: Yes: Ascites Musculoskeletal: Yes: Muscle Weakness Extremities: Yes: Erythema, Other Edema: Yes Integumentary: Yes: Skin Tear, Venous Stasis Changes Wound/Incision: Yes: Dressing Dry and Intact, Draining Neurological: Yes: Confusion, Weakness ...Motor Strength: LLE, RLE Psychiatric: Yes: Other Labs: CBC, BMP 12/06/17 07:20 12/06/17 07:20 Discharge Summary Reason For Visit: CONGESTIVE HEART FAILURE, ANEMIA, HEPATIC Current Active Problems Anemia (Acute) Ascites due to alcoholic cirrhosis (Acute) CHF (congestive heart failure) (Acute) Encephalopathy (Acute) Epistaxis not due to trauma (Acute) Liver cirrhosis (Acute) MSSA bacteremia (Acute) Stomatitis and mucositis (Acute) Procedures: Principal: HEAD CT/SONO/PARACENTESIS ASCITES ABD Hospital Course: ADMITTED FOR WORSENING ASCITES, LIVER/RENAL FAILURE, TRANSFUSED WITH [facility]/PLTS PARACENTESIS DONE WILL NEED LIVER HEPATOLOGY TEAM AT [facility] TRANSFERRING LIVER TRANSPLANT TEAM Condition: Stable - Instructions Diet, Activity, Other Instructions: REG DIET Referrals: Prakash Ashley MD [Primary Care Provider] - Robert Craig MD [Staff Physician] - Disposition: TRANSFER ACUTE CARE/OTHER HOSP - Home Medications Comprehensive Discharge Medication List: Ambulatory Orders Folic Acid - 1 mg PO DAILY #30 tablet 06/23/17 Cyanocobalamin [Vitamin B12 -] 100 mcg PO DAILY #30 tablet 07/28/17 Furosemide [Lasix -] 40 mg PO DAILY #30 tablet 07/28/17 Pantoprazole Sodium [Protonix -] 40 mg PO DAILY #30 tablet.ec 07/28/17 Thiamine HCl [Vitamin B1] 100 mg PO DAILY #30 tablet 07/28/17 Gabapentin 300 mg PO QID #120 capsule MDD 4 08/12/17 Rifaximin [Xifaxan -] 550 mg PO BID #60 tablet MDD 2 08/12/17 Sertraline HCl [Zoloft -] 25 mg PO DAILY #30 tablet MDD 1 08/12/17 Lactulose (Oral Use) [Cephulac -] 35 gm PO QID 11/03/17 oxyCODONE HCL [Roxicodone -] 5 mg PO TID PRN MDD 3 11/03/17 Hydroxyzine HCl 50 mg PO QID 11/23/17 Magnesium 500 mg PO BID 11/23/17 Nystatin Oral Suspension - [Nystatin Oral Susp 760079 Units/5 ML -] 100,000 units PO QID 11/23/17 Clotrimazole/Betamet Diprop [Lotrisone -] 1 applic TP BID tube 12/06/17 Lactulose (Oral Use) [Cephulac -] 20 gm PO DAILY udc 12/06/17 Lytes/Yerba Andie [Mouthkote Solution -] 1 applic MM BID applic 12/06/17 Mag Hydrox/Alh/Smc/Dpha/Lido [Magic Mouthwash *Sjr Formula* -] 5 ml MM Q6HPO bottle 12/06/17 Magnesium Oxide [Mag-Ox -] 400 mg PO BID tablet 12/06/17 Pramipexole Dihydrochloride [Mirapex -] 0.125 mg PO BID tablet 12/06/17 Silver Sulfadiazine 1% Top Cr [Silvadene -] 1 applic TP BID jar 12/06/17 Spironolactone [Aldactone -] 50 mg PO BID tablet 12/06/17 oxyCODONE HCL [Roxicodone -] 10 mg PO Q6H PRN tablet MDD 4 12/06/17
--- NOTE | 2017-12-06 14:41 | PN ---
Progress Note (short form) - Note Progress Note: The case was discussed with [facility]. Transferred in progress. Problem List - Problems (1) Encephalopathy Code(s): G93.40 - ENCEPHALOPATHY, UNSPECIFIED (2) Ascites due to alcoholic cirrhosis Code(s): K70.31 - ALCOHOLIC CIRRHOSIS OF LIVER WITH ASCITES (3) Liver cirrhosis Code(s): K74.60 - UNSPECIFIED CIRRHOSIS OF LIVER (4) Alcoholic cirrhosis Code(s): K70.30 - ALCOHOLIC CIRRHOSIS OF LIVER WITHOUT ASCITES Qualifiers: Ascites presence: with ascites Qualified Code(s): K70.31 - Alcoholic cirrhosis of liver with ascites
[2017-12-06 18:55] VITALS: TEMP 98.5
[2017-12-07 01:40] VITALS: BP 139/82; PULSE 99
--- NOTE | 2017-12-07 14:20 | PATH ---
Cytology Non-Gynecological Report Patient Name: NASREEN DANGELO [facility]. Rec. #: [id number] /Age/Gender: 1965 (Age: 52) / M Account: [id number] Location: [facility] PEDS/ADOL Taken: 12/03/2017 Received: 12/04/2017 Reported: 12/07/2017 Physicians: Alie Avalos M.D. Specimen(s) Received A: PLEURAL FLUID B: PLEURAL FLUID Clinical History Pleural effusion Final Diagnosis PLEURAL FLUID, THORACENTESIS: SATISFACTORY FOR EVALUATION NO MALIGNANT CELLS IDENTIFIED. MESOTHELIAL CELLS AND RARE LYMPHOCYTES PRESENT. COMMENT: RECOMMEND CORRELATION WITH CLINICAL FINDINGS AND FOLLOW UP CLINICALLY INDICATED. Electronically Signed Gloria Jackson M.D. Gross Description A. Approximately 50 cc of yellow fluid received fixed in 50% alcohol. Two cytofunnels and one cellblock prepared. B. Approximately 2000cc of yellow fluid received fresh. Two cytofunnels and one cellblock prepared.
== END 2017-12-06 23:00 | disposition short-term general hospital (02) | DRG 432 ==
LOC: JER 17:59 → JERBED 22:37 → J4S 11-24 21:09
PROVIDERS: ADMIT Internal Medicine; ATTEND Family Medicine
PROC: 30233K1 Transfusion of Nonautologous Frozen Plasma into Peripheral Vein, Percutaneous Approach (ICD-10-PCS; 2017-11-24)
PROC: 30233N1 Transfusion of Nonautologous Red Blood Cells into Peripheral Vein, Percutaneous Approach (ICD-10-PCS; 2017-11-24)
PROC: 0W9G3ZX Drainage of Peritoneal Cavity, Percutaneous Approach, Diagnostic (ICD-10-PCS; principal; 2017-11-26)
PROC: 0W9G3ZX Drainage of Peritoneal Cavity, Percutaneous Approach, Diagnostic (ICD-10-PCS; 2017-12-03)
DX: K70.31 Alcoholic cirrhosis of liver with ascites (principal); K76.7 Hepatorenal syndrome; E87.1 Hypo-osmolality and hyponatremia; D68.9 Coagulation defect, unspecified; B37.89 Other sites of candidiasis; K76.6 Portal hypertension; N17.9 Acute kidney failure, unspecified; K62.5 Hemorrhage of anus and rectum; L03.116 Cellulitis of left lower limb; L03.115 Cellulitis of right lower limb; I13.0 Hypertensive heart and chronic kidney disease with heart failure and stage 1 through stage 4 chronic kidney disease, or unspecified chronic kidney disease; N18.9 Chronic kidney disease, unspecified; I50.9 Heart failure, unspecified; K72.90 Hepatic failure, unspecified without coma; D64.9 Anemia, unspecified; F32.9 Major depressive disorder, single episode, unspecified; L40.9 Psoriasis, unspecified; D69.6 Thrombocytopenia, unspecified; R19.7 Diarrhea, unspecified; K12.1 Other forms of stomatitis; D73.1 Hypersplenism; K12.30 Oral mucositis (ulcerative), unspecified; G25.81 Restless legs syndrome; G25.3 Myoclonus; R26.0 Ataxic gait; G43.909 Migraine, unspecified, not intractable, without status migrainosus; D72.819 Decreased white blood cell count, unspecified; E66.9 Obesity, unspecified; Z68.29 Body mass index [BMI] 29.0-29.9, adult
CPT/HCPCS: 36415; 36430; 70450-TC; 71045-TC-FY; 76700-TC; 76705-TC; 76942-TC; 80048; 80053; 81003; 82009; 82042; 82140; 82150; 82248; 82272; 82550; 82728; 82945; 83540; 83550; 83615; 83690; 83735; 83880; 84100; 84157; 84478; 84484; 85025; 85027; 85384; 85610; 86850; 86900; 86901; 86922; 87040; 87070; 87075; 87086; 87102; 87116; 87205; 87206; 87210; 87324; 87449; 87899; 88108; 88305-TC; 89051; 93005; 93010; 97116-GP; 97161-GP; 99285-25; P9017; P9038; P9047; P9058

== ENCOUNTER 2018-01-04 17:44 | Inpatient (IN) | payer BC ==
[2018-01-04] MEDS ORDERED: SODIUM CHLORIDE 1,000 ML IV STA (19:41)
--- NOTE | 2018-01-04 19:59 | PDOC ---
History of Present Illness - General Chief Complaint: Altered Mental Status Stated Complaint: Altered Mental Status Time Seen by Provider: 01/04/18 19:17 History Source: Patient, Spouse - History of Present Illness Timing/Duration: 1 week Severity: severe Associated Symptoms: reports: weakness. denies: chest pain, cough, fever/chills , nausea/vomiting, shortness of breath Past History - Past Medical History Allergies/Adverse Reactions: Allergies Allergy/AdvReac Type Severity Reaction Status Date / Time No Known Allergies Allergy Verified 01/04/18 17:54 Home Medications: Ambulatory Orders Cyanocobalamin [Vitamin B12 -] 100 mcg PO DAILY #30 tablet 07/28/17 Furosemide [Lasix -] 40 mg PO DAILY #30 tablet 07/28/17 Pantoprazole Sodium [Protonix -] 40 mg PO DAILY #30 tablet.ec 07/28/17 Thiamine HCl [Vitamin B1] 100 mg PO DAILY #30 tablet 07/28/17 Rifaximin [Xifaxan -] 550 mg PO BID #60 tablet MDD 2 08/12/17 Sertraline HCl [Zoloft -] 25 mg PO DAILY #30 tablet MDD 1 08/12/17 Hydroxyzine HCl 50 mg PO QID 11/23/17 Magnesium 500 mg PO BID 11/23/17 Spironolactone [Aldactone -] 50 mg PO BID tablet 12/06/17 Folic Acid - 800 mcg PO DAILY 01/04/18 Gabapentin 200 mg PO TID MDD 4 01/04/18 Lactulose (Oral Use) [Cephulac -] 20 gm PO QID 01/04/18 Magnesium Oxide [Mag-Ox -] 500 mg PO BID 01/04/18 Pramipexole Dihydrochloride [Mirapex -] 0.25 mg PO TID 01/04/18 Sucralfate Oral Suspension [Carafate *Oral Susp*] 1 gm PO QID 01/04/18 oxyCODONE HCL [Roxicodone -] 5 mg PO Q6H MDD 4 01/04/18 Anemia: Yes Asthma: No Cancer: No Cardiac Disorders: No CVA: No COPD: No CHF: No DVT: No Dementia: No Diabetes: No GI Disorders: Yes (pancreatitis) Disorders: No HTN: Yes Hypercholesterolemia: No Kidney Stones: No Liver Disease: Yes (CIRROSIS & ASCITES) Psychiatric Problems: Yes (depression) Seizures: No Thyroid Disease: No - Reproductive History Testicular Surgery: No - Immunization History Immunization Up to Date: Yes - Suicide/Smoking/Psychosocial Hx Smoking History: Never smoked Have you smoked in the past 12 months: No Information on smoking cessation initiated: No 'Breaking Loose' booklet given: 07/22/17 Hx Alcohol Use: Yes Drug/Substance Use Hx: No Substance Use Type: Alcohol Hx Substance Use Treatment: No Review of Systems - Review of Systems Constitutional: Yes: Weakness. No: Fever Respiratory: No: Cough, Shortness of Breath Cardiac (ROS): No: Chest Pain ABD/GI: No: Blood Streaked Bowels, Diarrhea, Nausea, Rectal Bleeding, Vomiting, Abdominal cramping : No: Dysuria *Physical Exam - Vital Signs Last Vital Signs Temp Pulse Resp BP Pulse Ox 97.8 F 70 20 109/56 96 01/04/18 17:54 01/04/18 17:54 01/04/18 18:34 01/04/18 17:54 01/04/18 18:34 - Physical Exam Comments: 01/04/18 20:01 Chronically ill appearing, jaundiced male lying on stretcher in no apparent distress General Appearance: Yes: Appropriately Dressed HEENT: positive: Scleral Icterus (R), Scleral Icterus (L) Neck: positive: Supple Respiratory/Chest: positive: Lungs Clear, Normal Breath Sounds. negative: Respiratory Distress Cardiovascular: positive: Regular Rate, S1, S2 Gastrointestinal/Abdominal: positive: Soft. 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 myoclonus vs RLS, CKD, BIB with complaint that pt appears more confused over the past week with increased lethargy and has been mostly bed bound. Patient unable to give much history because of his medical condition, but denies having any abdominal pain, nausea, vomiting or fever and no bright red blood per rectum or melena. Liver specialist at [facility] and GI doctor here at [facility] as Dr. Craig. Of note, patient status post recent admission for abdominal distention, nausea and vomiting and had paracentesis which was negative for SBP and ultimately transferred to [facility] See exam AMS in pt w/ ESLD, deemed not to be good liver tx candidate 2/2 ETOH abuse, hospice rec on last visit [employer] at [facility] On 30ml lactulose daily Chronically ill ki and jaundiced, no palpable ascites w/ soft NT abd -dose of lactulose in ED -labs -IVF -admit 01/04/18 22:39 Hbg 7.9 (baseline ~8). No active bleeding. NA 129, cr baseline at 1.8. Rest of w /u unremarkable. Case d/w hospitalist and pt admitted *DC/Admit/Observation/Transfer Diagnosis at time of Disposition: Altered mental status Qualifiers: Altered mental status type: unspecified Qualified Code(s): R41.82 - Altered mental status, unspecified - Discharge Dispostion Condition at time of disposition: Fair Decision to Admit order: Yes - Referrals - Patient Instructions - Post Discharge Activity
[2018-01-04 20:57] LABS: BASO % 0.8 % (0-2.0); EOS % 3.7 % (0-4.5); HEMATOCRIT 23.1 % (35.4-49); HEMOGLOBIN 7.9 GM/dL (11.7-16.9); LYMPH % 22.1 % (8-40); MCH 33.6 pg (25.7-33.7); MCHC 34.3 g/dl (32.0-35.9); MEAN CELL VOLUME 97.8 fl (80-96); MONO % 9.2 % (3.8-10.2); NEUT % 64.2 % (42.8-82.8); RBC 2.37 M/mm3 (4.00-5.60); WHITE BLOOD COUNT 6.2 K/mm3 (4.0-10.0)
[2018-01-04 21:03] LABS: URINE APPEARANCE CLEAR; URINE BILIRUBIN NEGATIVE (<2.0 mg/dL); URINE BLOOD 2+ (NEGATIVE); URINE COLOR YELLOW; URINE GLUCOSE (UA) NEGATIVE (NEGATIVE); URINE KETONE NEGATIVE (NEGATIVE); URINE LEUK ESTERASE NEGATIVE (NEGATIVE); URINE NITRITE NEGATIVE (NEGATIVE); URINE PROTEIN NEGATIVE (NEGATIVE); URINE UROBILINOGEN NEGATIVE mg/dL (0.2-1.0)
[2018-01-04 21:26] LABS: ALBUMIN 3.3 g/dl (3.4-5.0); ANION GAP 6 (8-16); BLOOD UREA NITROGEN 28 mg/dL (7-18); CALCIUM 9.6 mg/dL (8.5-10.1); CHLORIDE 91 mmol/L (98-107); CO2 32 mmol/L (21-32); CREATININE 1.8 mg/dL (0.7-1.3); GLUCOSE,RANDOM 114 mg/dL (74-106); POTASSIUM 5.2 mmol/L (3.5-5.1); SGOT/AST 92 U/L (15-37); SGPT/ALT 46 U/L (12-78); SODIUM 129 mmol/L (136-145); TOT PROT 8.6 g/dl (6.4-8.2)
[2018-01-04 21:28] LABS: ALK PHOS 124 U/L (45-117)
[2018-01-04 21:39] LABS: MEAN PLT VOLUME 10.4 fl (7.5-11.1); PLATELET COUNT 92 K/MM3 (134-434); PLATELET ESTIMATE DECREASED
[2018-01-04] MEDS ORDERED: LACTULOSE 20 GM/30 ML UDC (FOR ORAL USE ONLY) PO ONE (22:15)
[2018-01-04] MEDS ORDERED: LACTULOSE 20 GM/30 ML UDC (FOR ORAL USE ONLY) ONE (22:21)
[2018-01-04] MEDS ORDERED: ACETAMINOPHEN 325 MG TABLET (FP) PO PRN (23:48)
[2018-01-04 23:54] LABS: INR 2.27 (0.82-1.09); PROTHROMBIN TIME (PATIENT) 25.7 SEC (9.7-13.0)
--- NOTE | 2018-01-05 00:33 | HP ---
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 Per pt's , pt was at his baseline as of 1 week ago when he began developing increasing lethargy, confusion, and weakness, worsening gait , and worsening involuntary motor movements. At baseline, pt requires DISPENSING OPTICIAN for ADLs including walking and eating, and he has home PT services and VNS. Pt's PT and nurse instructed pt's to bring him into the hospital because of his worsening symptoms. Of note, pt was recently admitted to [facility] for abdominal distention/nausea/emesis , underwent a paracentesis which was negative for SBP, was transfused FFP and platelets, and was ultimately transferred to [facility]. While there, pt underwent an EGD which revealed an "esophageal ulcer." Pt was discharged from [facility] about 3 weeks ago. In the meantime, there have been no medication changes, and the pt has been receiving all his medications as directed. Pt sees Dr. Craig in [facility] and Dr. Barajas at [facility]. 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 Fever, chills, chest pain, SOB, abdominal pain, and dysuria were denied. Pt has an episode of emesis every few days for past few months. He always has diarrhea due to lactulose. ER course was notable for: (1) history (2) physical (3) labs/imaging Recent Travel: denies PAST MEDICAL HISTORY: as stated above PAST SURGICAL HISTORY: denies Social History: Smoking: denies Alcohol: quit in May 2017, former vodka drinker Drugs: denies Pt lives with in home in [place]. He has a DISPENSING OPTICIAN for 10 hours a day. He gets PT and has VNS as well. Family History: father- parkinson's disease mother- arthritis, HTN Allergies No Known Allergies Allergy (Verified 01/04/18 17:54) HOME MEDICATIONS: Home Medications Medication Instructions Recorded Cyanocobalamin [Vitamin B12 -] 100 mcg PO DAILY #30 tablet 07/28/17 Furosemide [Lasix -] 40 mg PO DAILY #30 tablet 07/28/17 Pantoprazole Sodium [Protonix -] 40 mg PO DAILY #30 tablet.ec 07/28/17 Thiamine HCl [Vitamin B1] 100 mg PO DAILY #30 tablet 07/28/17 Rifaximin [Xifaxan -] 550 mg PO BID #60 tablet MDD 2 08/12/17 Sertraline HCl [Zoloft -] 25 mg PO DAILY #30 tablet MDD 1 08/12/17 Hydroxyzine HCl 50 mg PO QID 11/23/17 Magnesium 500 mg PO BID 11/23/17 Spironolactone [Aldactone -] 50 mg PO BID tablet 12/06/17 Folic Acid - 800 mcg PO DAILY 01/04/18 Gabapentin 200 mg PO TID MDD 4 01/04/18 Lactulose (Oral Use) [Cephulac -] 20 gm PO QID 01/04/18 Magnesium Oxide [Mag-Ox -] 500 mg PO BID 01/04/18 Pramipexole Dihydrochloride 0.25 mg PO TID 01/04/18 [Mirapex -] Sucralfate Oral Suspension 1 gm PO QID 01/04/18 [Carafate *Oral Susp*] oxyCODONE HCL [Roxicodone -] 5 mg PO Q6H MDD 4 01/04/18 REVIEW OF SYSTEMS CONSTITUTIONAL: Absent: fever, chills, diaphoresis, loss of appetite, weight change present: generalized weakness, malaise, HEENT: Absent: rhinorrhea, nasal congestion, throat pain, throat swelling, difficulty swallowing, mouth swelling, ear pain, eye pain, visual changes CARDIOVASCULAR: Absent: chest pain, syncope, palpitations, irregular heart rate, lightheadedness , peripheral edema RESPIRATORY: Absent: cough, shortness of breath, dyspnea with exertion, orthopnea, wheezing, stridor, hemoptysis GASTROINTESTINAL: Absent: abdominal pain, abdominal distension, constipation, melena, hematochezia present: nausea, vomiting, diarrhea GENITOURINARY: Absent: dysuria, frequency, urgency, hesitancy, hematuria, flank pain, genital pain MUSCULOSKELETAL: Absent: myalgia, arthralgia, joint swelling, back pain, neck pain SKIN: Absent: rash, itching, pallor HEMATOLOGIC/IMMUNOLOGIC: Absent: easy bleeding, easy bruising, lymphadenopathy, frequent infections ENDOCRINE: Absent: unexplained weight gain, unexplained weight loss, heat intolerance, cold intolerance NEUROLOGIC: Absent: headache, focal weakness or paresthesias, dizziness, present: unsteady gait, mental status changes, bladder incontinence PSYCHIATRIC: Absent: anxiety, depression, suicidal or homicidal ideation, hallucinations. PHYSICAL EXAMINATION Vital Signs - 24 hr 01/04/18 01/04/18 17:54 18:34 Temperature 97.8 F Pulse Rate 70 Respiratory 20 20 Rate Blood Pressure 109/56 O2 Sat by Pulse 96 96 Oximetry (%) GENERAL: middle aged male, lying in bed, awake, alert, AAOx0 HEENT: scleral icterus LUNGS: CTAB HEART: RRR, 3/6 systolic murmur heard best along left sternal border ABDOMEN: soft, minimally tender in lower quadrants, ND, no hepatomegaly appreciated MUSCULOSKELETAL: no LE edema. hyperpigmentation over b/l LEs NEUROLOGICAL: AAOx0, not responding appropriately to questions, not following commands, is speaking real words SKIN: jaundice Laboratory Results - last 24 hr 01/04/18 01/04/18 01/04/18 20:50 20:50 20:50 WBC 6.2 RBC 2.37 L Hgb 7.9 L Hct 23.1 L MCV 97.8 H D MCH 33.6 MCHC 34.3 RDW 19.0 H Plt Count 92 L D MPV 10.4 D Absolute Neuts (auto) 4.0 Neutrophils % 64.2 Lymphocytes % 22.1 Monocytes % 9.2 Eosinophils % 3.7 D Basophils % 0.8 Nucleated RBC % 0 Platelet Estimate Decreased Platelet Comment No clumping noted Sodium 129 L Potassium 5.2 H Chloride 91 L Carbon Dioxide 32 Anion Gap 6 L BUN 28 H Creatinine 1.8 H Creat Clearance w eGFR 39.52 Random Glucose 114 H Lactic Acid 2.0 Calcium 9.6 Total Bilirubin 5.0 H D AST 92 H D ALT 46 D Alkaline Phosphatase 124 H Ammonia Creatine Kinase 24 L Troponin I < 0.02 D Total Protein 8.6 H Albumin 3.3 L Lipase Urine Color Urine Appearance Urine pH Ur Specific [place] Urine Protein Urine Glucose (UA) Urine Ketones Urine Blood Urine Nitrite Urine Bilirubin Urine Urobilinogen Ur Leukocyte Esterase Urine WBC (Auto) Urine RBC (Auto) 01/04/18 01/04/18 01/04/18 20:50 20:50 21:59 WBC RBC Hgb Hct MCV MCH MCHC RDW Plt Count MPV Absolute Neuts (auto) Neutrophils % Lymphocytes % Monocytes % Eosinophils % Basophils % Nucleated RBC % Platelet Estimate Platelet Comment Sodium Potassium Chloride Carbon Dioxide Anion Gap BUN Creatinine Creat Clearance w eGFR Random Glucose Lactic Acid Calcium Total Bilirubin AST ALT Alkaline Phosphatase Ammonia 72.5 H Creatine Kinase Troponin I Total Protein Albumin Lipase 271 Urine Color Yellow Urine Appearance Clear Urine pH 7.0 Ur Specific [place] 1.006 Urine Protein Negative Urine Glucose (UA) Negative Urine Ketones Negative Urine Blood 2+ H Urine Nitrite Negative Urine Bilirubin Negative Urine Urobilinogen Negative Ur Leukocyte Esterase Negative Urine WBC (Auto) 1 Urine RBC (Auto) 5 ASSESSMENT/PLAN: 52M w/ hx of 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 #AMS -likely 2/2 worsening hepatic encephalopathy 2/2 unclear etiology (no medication non-adherence and no signs of infection) -GI consulted, Dr. Craig -Increased lactulose to 40mg QID -continue home dose of rifaximin -sodium/fluid controlled diet -fall precautions -neuro checks -f/u CT head to r/o hematoma -discontinue home gabapentin, oxycodone, and hydroxyzine due to sedative effects #Decompensated Cirrhosis -f/u INR and calculate MELD -continue home lasix and spironolactone -continue B12, thiamine, magnesium, and folic acid -f/u abdominal US -GI consult #abdominal tenderness -likely 2/2 full bladder and need to urinate -f/u abdominal US for presence of ascites. If present and abdominal tenderness/ pain worsens, consider diagnostic tap #Depression -continue home sertraline #anemia- borderline macrocytic- 2/2 cirrhosis -Hgb of 7.9, at baseline -continue to monitor #thrombocytopenia- 2/2 cirrhosis -platelets of 92, at baseline -continue to monitor #elevated creatinine -creatinine of 1.8, at baseline -likely 2/2 hepatorenal syndrome -continue to monitor #back pain -home gabapentin and oxycodone held -monitor for pain #involuntary motor movements -continue home pramipexole #FEN/ppx -no IVF -Na of 129 -sodium/fluid restricted diet -DVT ppx held 2/2 thrombocytopenia and elevated INR 2/2 cirrhosis -protonix #Dispo -admit to med/surg Case discussed with attending, Dr. Lazaro. -Tomas Bernstein MD PGY1 Visit type - Emergency Visit Emergency Visit: Yes ED Registration Date: 01/04/18 Care time: The patient presented to the Emergency Department on the above date and was hospitalized for further evaluation of their emergent condition. - New Patient This patient is new to me today: Yes Date on this admission: 01/05/18 - Critical Care Critical Care patient: No Hospitalist Screening - Colonoscopy Questionnaire Colonoscopy Questionnaire: Colonoscopy Questionnaire - Patient: 50 - 75 years old and never had a screening colonoscopy: Unknown History of colon or rectal polyps, or CA: Unknown History of IBD, Crohn's disease or UC: Unknown History of abdominal radiation therapy as a child: Unknown - Relative: 1 with colon or rectal CA, or polyps at age 60 or younger: Unknown Colon or rectal CA diagnosed at age 45 or younger: Unknown Multiple relatives with colon or rectal CA: Unknown - Outcome: Screening Result: Negative Screen
--- NOTE | 2018-01-05 00:50 | PN ---
Teaching Attending Note Name of Resident: Tomas Bernstein ATTENDING PHYSICIAN STATEMENT I saw and evaluated the patient. I reviewed the resident's note and discussed the case with the resident. I agree with the resident's findings and plan as documented. 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 His says he began developing increasing lethargy, confusion, and weakness, worsening gait , and worsening involuntary motor movements about 1 weeks ago. At baseline, pt requires SENIOR USER EXPERIENCE ARCHITECT for ADLs including walking and eating, and he has home PT services and VNS. There has been no recent changes in his medication regimen and no features of infection. OBJECTIVE: Somnolent but arousable. Vital Signs Period Temp Pulse Resp BP Sys/Palmer Pulse Ox Last 24 Hr 97.8 F 70 20-20 109/56 96-96 HEENT: Jaundice; no eye redness or discharge, PERRLA, EOMI. Normocephalic, atraumatic. External ears are normal and hearing is grossly intact. No nasal discharge. Neck: Supple, nontender. No palpable adenopathy or thyromegaly. No JVD Chest: Good effort. Clear to auscultation and percussion. Heart: Regular. No S3 or rub; 2/6 ELIZA Abdomen: Obese, soft, nontender and no HSM. No rebound or guarding. Normoactive bowel sounds. Ext: Peripheral pulses intact. No leg edema. Hyperpigmented lower legs. Skin: Warm and dry. No petechiae, rash or ecchymosis. Neuro: Oriented to person. No asterexis. Sensation grossly intact in all four extremities and DTR are symmetric. Current Medications Generic Name Dose Route Start Last Admin Trade Name Freq PRN Reason Stop Dose Admin Acetaminophen 650 mg 01/04/18 23:48 Tylenol - PO Q4H PRN FEVER Cyanocobalamin 100 mcg 01/05/18 10:00 Vitamin B12 - PO DAILY VANITA Folic Acid 1 mg 01/05/18 10:00 Folic Acid - PO DAILY VANITA Furosemide 40 mg 01/05/18 10:00 Lasix - PO DAILY VANITA Lactulose 40 gm 01/05/18 10:00 Cephulac (Oral Use) PO QID VANITA Magnesium Oxide 400 mg 01/05/18 10:00 Mag-Ox - PO BID [facility] Pantoprazole Sodium 40 mg 01/05/18 10:00 Protonix - PO DAILY [facility] Pramipexole Dihydrochloride 0.25 mg 01/05/18 06:00 Mirapex - PO TID [facility] Rifaximin 550 mg 01/05/18 10:00 Xifaxan - PO BID [facility] Sertraline HCl 25 mg 01/05/18 10:00 Zoloft - PO DAILY [facility] Spironolactone 50 mg 01/05/18 10:00 Aldactone - PO BID [facility] Sucralfate 1 gm 01/05/18 10:00 Carafate Oral Suspension - PO QID [facility] Thiamine HCl 100 mg 01/05/18 10:00 Vitamin B1 - PO DAILY [facility] Home Medications Medication Instructions Recorded Cyanocobalamin [Vitamin B12 -] 100 mcg PO DAILY #30 tablet 07/28/17 Furosemide [Lasix -] 40 mg PO DAILY #30 tablet 07/28/17 Pantoprazole Sodium [Protonix -] 40 mg PO DAILY #30 tablet.ec 07/28/17 Thiamine HCl [Vitamin B1] 100 mg PO DAILY #30 tablet 07/28/17 Rifaximin [Xifaxan -] 550 mg PO BID #60 tablet MDD 2 08/12/17 Sertraline HCl [Zoloft -] 25 mg PO DAILY #30 tablet MDD 1 08/12/17 Hydroxyzine HCl 50 mg PO QID 11/23/17 Magnesium 500 mg PO BID 11/23/17 Spironolactone [Aldactone -] 50 mg PO BID tablet 12/06/17 Folic Acid - 800 mcg PO DAILY 01/04/18 Gabapentin 200 mg PO TID MDD 4 01/04/18 Lactulose (Oral Use) [Cephulac -] 20 gm PO QID 01/04/18 Magnesium Oxide [Mag-Ox -] 500 mg PO BID 01/04/18 Pramipexole Dihydrochloride 0.25 mg PO TID 01/04/18 [Mirapex -] Sucralfate Oral Suspension 1 gm PO QID 01/04/18 [Carafate *Oral Susp*] oxyCODONE HCL [Roxicodone -] 5 mg PO Q6H MDD 4 01/04/18 Abnormal Lab Results 01/04/18 01/04/18 01/04/18 20:50 20:50 20:50 RBC 2.37 L Hgb 7.9 L Hct 23.1 L MCV 97.8 H D RDW 19.0 H Plt Count 92 L D PT with INR INR PTT (Actin FS) Sodium 129 L Potassium 5.2 H Chloride 91 L Anion Gap 6 L BUN 28 H Creatinine 1.8 H Random Glucose 114 H Total Bilirubin 5.0 H D Direct Bilirubin AST 92 H D Alkaline Phosphatase 124 H Ammonia Creatine Kinase 24 L Total Protein 8.6 H Albumin 3.3 L Urine Blood 2+ H 01/04/18 01/04/18 01/04/18 21:59 23:30 23:30 RBC Hgb Hct MCV RDW Plt Count PT with INR 25.70 H INR 2.27 H PTT (Actin FS) Sodium Potassium Chloride Anion Gap BUN Creatinine Random Glucose Total Bilirubin Direct Bilirubin 2.5 H AST Alkaline Phosphatase Ammonia 72.5 H Creatine Kinase Total Protein Albumin Urine Blood 01/04/18 23:30 RBC Hgb Hct MCV RDW Plt Count PT with INR INR PTT (Actin FS) 45.8 H Sodium Potassium Chloride Anion Gap BUN Creatinine Random Glucose Total Bilirubin Direct Bilirubin AST Alkaline Phosphatase Ammonia Creatine Kinase Total Protein Albumin Urine Blood ASSESSMENT AND PLAN: 1. Hepatic encephalopathy - Likely cause of altered mental status. No obvious precipitating infection and no recent changes in his medications. Will treat with lactulose 40 ml q 6 hours po and rifaximin 550 mg po q 12 hour. Will monitor stool consistency and frequency and follow NH3 level. Get head CT, stop oxycodone, neurontin, low salt diet, continue lasix and aldactone and monitor daily weight. If mild hyperkalemia fails to improve, will reduce dose of aldactone. Anemia, low platelets, hyponatremia and high INR are all sequelae of cirrhosis and advanced liver disease. Will exclude GI blood loss. Will evaluate PATRICIA since he may have hepatorenal syndrome. Avoid NSAIDS and aminoglycosides. No need for paracentesis at this time. Implement fall precautions. 2. DVT prophylaxis - Heparin 5000u sq tid 3. Advance directives - Full code
[2018-01-05 01:24] VITALS: BMI 24.2
[2018-01-05] MEDS: PRAMIPEXOLE DIHYDROCHLORIDE 0.25 MG TABLET PO SCH ×3 (06:42→21:46)
[2018-01-05 08:02] LABS: CHLORIDE 94 mmol/L (98-107); POTASSIUM 4.3 mmol/L (3.5-5.1); SODIUM 131 mmol/L (136-145)
[2018-01-05 08:20] LABS: ALBUMIN 3.6 g/dl (3.4-5.0); ALK PHOS 139 U/L (45-117); ANION GAP 8 (8-16); BILIRUBIN,TOTAL 5.9 mg/dL (0.2-1.0); BLOOD UREA NITROGEN 26 mg/dL (7-18); CALCIUM 10.1 mg/dL (8.5-10.1); CO2 29 mmol/L (21-32); CREATININE 1.7 mg/dL (0.7-1.3); GLUCOSE,RANDOM 100 mg/dL (74-106); SGOT/AST 95 U/L (15-37); SGPT/ALT 50 U/L (12-78)
[2018-01-05 08:22] LABS: INR 1.94 (0.82-1.09); PROTHROMBIN TIME (PATIENT) 21.9 SEC (9.7-13.0)
[2018-01-05 08:24] LABS: ACTIVATED PTT 39.5 SECONDS (26.9-34.4)
[2018-01-05 08:44] LABS: BASO % 0.5 % (0-2.0); EOS % 4.1 % (0-4.5); HEMATOCRIT 24.5 % (35.4-49); HEMOGLOBIN 8.5 GM/dL (11.7-16.9); LYMPH % 23.7 % (8-40); MCH 34.3 pg (25.7-33.7); MEAN CELL VOLUME 98.1 fl (80-96); MEAN PLT VOLUME 9.5 fl (7.5-11.1); NEUT % 63.7 % (42.8-82.8); PLATELET COUNT 80 K/MM3 (134-434); RBC 2.49 M/mm3 (4.00-5.60); RDW 18.1 % (11.9-15.9)
--- NOTE | 2018-01-05 09:06 | PN ---
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 - Current Medication List Current Medications: Active Medications Acetaminophen (Tylenol -) 650 mg PO Q4H PRN PRN Reason: FEVER Cyanocobalamin (Vitamin B12 -) 100 mcg PO DAILY [facility] Folic Acid (Folic Acid -) 1 mg PO DAILY [facility] Furosemide (Lasix -) 40 mg PO DAILY [facility] Lactulose (Cephulac (Oral Use)) 40 gm PO QID [facility] Magnesium Oxide (Mag-Ox -) 400 mg PO BID [facility] Pantoprazole Sodium (Protonix -) 40 mg PO DAILY [facility] Pramipexole Dihydrochloride (Mirapex -) 0.25 mg PO TID [facility] Last Admin: 01/05/18 06:42 Dose: 0.25 mg Rifaximin (Xifaxan -) 550 mg PO BID [facility] Sertraline HCl (Zoloft -) 25 mg PO DAILY [facility] Spironolactone (Aldactone -) 50 mg PO BID [facility] Sucralfate (Carafate Oral Suspension -) 1 gm PO QID [facility] Thiamine HCl (Vitamin B1 -) 100 mg PO DAILY [facility] - Objective Vital Signs: Vital Signs Temperature 97.6 F 01/05/18 05:00 Pulse Rate 80 01/05/18 05:00 Respiratory Rate 20 01/05/18 05:00 Blood Pressure 124/70 01/05/18 05:00 O2 Sat by Pulse Oximetry (%) 95 01/04/18 22:37 Cardiovascular: Yes: S1, S2 Respiratory: Yes: Regular, CTA Bilaterally Gastrointestinal: Yes: Normal Bowel Sounds, Soft, Ascites Neurological: Yes: Alert, Confusion, Unsteady Gait, Weakness Labs: CBC, BMP 01/05/18 06:30 01/05/18 06:30 INR, PTT INR 1.94 (0.82-1.09) H 01/05/18 06:30 Problem List - Problems (1) Altered mental status Assessment/Plan: -likely 2/2 worsening hepatic encephalopathy -GI consulted, Dr. Craig -Increased lactulose to 40mg QID -continue home dose of rifaximin -sodium/fluid controlled diet -fall precautions -neuro checks -f/u CT head to r/o hematoma -discontinue home gabapentin, oxycodone, and hydroxyzine due to sedative effects Code(s): R41.82 - ALTERED MENTAL STATUS, UNSPECIFIED Qualifiers: Altered mental status type: unspecified Qualified Code(s): R41.82 - Altered mental status, unspecified (2) Cirrhosis of liver with ascites Assessment/Plan: -continue home lasix and spironolactone -continue B12, thiamine, magnesium, and folic acid -f/u abdominal US -GI consult Code(s): K74.60 - UNSPECIFIED CIRRHOSIS OF LIVER; R18.8 - OTHER ASCITES (3) Hepatic encephalopathy Assessment/Plan: -Lactulose -GI Code(s): K72.90 - HEPATIC FAILURE, UNSPECIFIED WITHOUT COMA (4) Acute kidney injury Assessment/Plan: -creatinine of 1.8, at baseline -Renal consult -continue to monitor Code(s): N17.9 - ACUTE KIDNEY FAILURE, UNSPECIFIED (5) Anemia Assessment/Plan: - 2/2 cirrhosis -Hgb of 7.9, at baseline -continue to monitor Code(s): D64.9 - ANEMIA, UNSPECIFIED Qualifiers: (6) Thrombocytopenia Assessment/Plan: -2/2 cirrhosis -platelets of 92, at baseline -continue to monitor Code(s): D69.6 - THROMBOCYTOPENIA, UNSPECIFIED
[2018-01-05 09:10] LABS: PLATELET ESTIMATE DECREASED
[2018-01-05] MEDS ORDERED: MAGNESIUM 500 MG PO SCH (10:00)
[2018-01-05] MEDS ORDERED: LACTULOSE 20 GM/30 ML UDC (FOR ORAL USE ONLY) PO SCH (10:00)
[2018-01-05] MEDS: LACTULOSE 20 GM/30 ML UDC (FOR ORAL USE ONLY) PO SCH ×4 (10:08→21:44)
[2018-01-05] MEDS: SUCRALFATE 1 GM/10 ML UNIT DOSE CUPS PO SCH ×4 (10:08→21:45)
[2018-01-05] MEDS: FOLIC ACID 1 MG TABLET (FP) PO SCH (10:09)
[2018-01-05] MEDS: SERTRALINE HCL 25 MG TABLET (FP) PO SCH (10:09)
[2018-01-05] MEDS: MAGNESIUM OXIDE 400 MG TABLET (FP) PO SCH ×2 (10:09→21:46)
[2018-01-05] MEDS: THIAMINE HCL 100 MG TABLET (FP) PO SCH (10:09)
[2018-01-05] MEDS: PANTOPRAZOLE 40 MG TABLET (FP) PO SCH (10:10)
[2018-01-05] MEDS: SPIRONOLACTONE 25 MG TABLET (FP) PO SCH ×2 (10:12→21:46)
[2018-01-05] MEDS: FUROSEMIDE 40 MG TABLET (FP) PO SCH (10:12)
[2018-01-05] MEDS: RIFAXIMIN 550 MG TABLET (UD) PO SCH ×2 (10:13→21:46)
[2018-01-05] MEDS: CYANOCOBALAMIN (VITAMIN B-12) 100 MCG TABLET PO SCH (10:13)
--- NOTE | 2018-01-05 10:18 | CON.GI ---
Consult Consult Specialty:: GI Reason for Consultation:: encephalopathy - History of Present Illness History of Present Illness: The patient is known to GI service from multiple, prior admissions, the last one being last month. Based on this admission's labs, MELD - 22. 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 Per pt's , pt was at his baseline as of 1 week ago when he began developing increasing lethargy, confusion, and weakness, worsening gait, and worsening involuntary motor movements. At baseline, pt requires [employer] for ADLs including walking and eating, and he has home PT services and VNS. Pt's PT and nurse instructed pt's to bring him into the hospital because of his worsening symptoms. Of note, pt was recently admitted to [facility] for abdominal distention/nausea/emesis , underwent a paracentesis which was negative for SBP, was transfused FFP and platelets, and was ultimately transferred to [facility]. While there, pt underwent an EGD which revealed an "esophageal ulcer." Pt was discharged from [facility] about 3 weeks ago. In the meantime, there have been no medication changes, and the pt has been receiving all his medications as directed. Pt sees Dr. Craig in [facility] and Dr. Barajas at [facility]. 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 Fever, chills, chest pain, SOB, abdominal pain, and dysuria were denied. Pt has an episode of emesis every few days for past few months. He always has diarrhea due to lactulose. At the time of this encounter the patient is sitting comfortably in a chair next to the nurses station. Jaundiced, confused, disoriented, not in distress. Ultrasound of the abdomen from this morning revealed minimal abdominal fluid. The patient does not appear toxic. There is no record of fever. His white count is not elevated. His abdomen is not distended. Noticeable wasting compared to 1 months ago - History Source History Provided By: Medical Record Limitations to Obtaining History: Clinical Condition - Past Medical History Cardio/Vascular: Yes: HTN Gastrointestinal: Yes: Ascites Hepatobiliary: Yes: Cirrhosis (Alcohol induced, decompensated), Other (History of severe alcoholic hepatitis, hepatic encephalopathy) Psych: Yes: Depression Musculoskeletal: Yes: Other (Cellulitis and tenosynovitis +/- osteomyelitis 3rd/ 4th digit of left hand) Dermatology: Yes: Cellulitis (of LE and of hand), Psoriasis - Alcohol/Substance Use Hx Alcohol Use: Yes History of Substance Use: reports: None - Smoking History Smoking history: Never smoked Have you smoked in the past 12 months: No - Social History Usual Living Arrangement: With Significant Other (two teenage daughters) ADL: Independent Occupation: disabled History of Recent Travel: No Home Medications - Allergies Allergies/Adverse Reactions: Allergies Allergy/AdvReac Type Severity Reaction Status Date / Time No Known Allergies Allergy Verified 01/04/18 17:54 - Home Medications Home Medications: Ambulatory Orders Cyanocobalamin [Vitamin B12 -] 100 mcg PO DAILY #30 tablet 07/28/17 Furosemide [Lasix -] 40 mg PO DAILY #30 tablet 07/28/17 Pantoprazole Sodium [Protonix -] 40 mg PO DAILY #30 tablet.ec 07/28/17 Thiamine HCl [Vitamin B1] 100 mg PO DAILY #30 tablet 07/28/17 Rifaximin [Xifaxan -] 550 mg PO BID #60 tablet MDD 2 08/12/17 Sertraline HCl [Zoloft -] 25 mg PO DAILY #30 tablet MDD 1 08/12/17 Hydroxyzine HCl 50 mg PO QID 11/23/17 Magnesium 500 mg PO BID 11/23/17 Spironolactone [Aldactone -] 50 mg PO BID tablet 12/06/17 Folic Acid - 800 mcg PO DAILY 01/04/18 Gabapentin 200 mg PO TID MDD 4 01/04/18 Lactulose (Oral Use) [Cephulac -] 20 gm PO QID 01/04/18 Magnesium Oxide [Mag-Ox -] 500 mg PO BID 01/04/18 Pramipexole Dihydrochloride [Mirapex -] 0.25 mg PO TID 01/04/18 Sucralfate Oral Suspension [Carafate *Oral Susp*] 1 gm PO QID 01/04/18 oxyCODONE HCL [Roxicodone -] 5 mg PO Q6H MDD 4 01/04/18 Family Disease History - Family Disease History Family History: Unremarkable Family Disease History: Other: Grandparent Review of Systems Findings/Remarks: As per H&P, HPI and ED records Physical Exam-GI Vital Signs: Vital Signs Temperature 97.6 F 06/06/18 05:00 Pulse Rate 80 01/05/18 05:00 Respiratory Rate 20 01/05/18 05:00 Blood Pressure 124/70 01/05/18 05:00 O2 Sat by Pulse Oximetry (%) 95 01/04/18 22:37 Constitutional: Yes: Calm, Cachectic Eyes: Yes: Sclera Icterus Neck: Yes: Supple Respiratory: Yes: Regular Gastrointestinal Inspection: No: Ascites, Distention ...Palpate: Yes: Soft. No: Firm/Rigid, Guarding, Tenderness Neurological: Yes: Confusion, Lethargy Labs: CBC, BMP 01/05/18 06:30 01/05/18 06:30 INR, PTT INR 1.94 (0.82-1.09) H 01/05/18 06:30 Laboratory Last Values WBC 8.0 K/mm3 (4.0-10.0) 01/05/18 06:30 RBC 2.49 M/mm3 (4.00-5.60) L 01/05/18 06:30 Hgb 8.5 GM/dL (11.7-16.9) L 01/05/18 06:30 Hct 24.5 % (35.4-49) L 01/05/18 06:30 MCV 98.1 fl (80-96) H 01/05/18 06:30 MCH 34.3 pg (25.7-33.7) H 01/05/18 06:30 MCHC 35.0 g/dl (32.0-35.9) 01/05/18 06:30 RDW 18.1 % (11.9-15.9) H 01/05/18 06:30 Plt Count 80 K/MM3 (134-434) L 01/05/18 06:30 MPV 9.5 fl (7.5-11.1) 01/05/18 06:30 Absolute Neuts (auto) 5.1 # 01/05/18 06:30 Neutrophils % 63.7 % (42.8-82.8) 01/05/18 06:30 Lymphocytes % 23.7 % (8-40) 01/05/18 06:30 Monocytes % 8.0 % (3.8-10.2) 01/05/18 06:30 Eosinophils % 4.1 % (0-4.5) 01/05/18 06:30 Basophils % 0.5 % (0-2.0) 01/05/18 06:30 Nucleated RBC % 0 % (0-0) 01/05/18 06:30 Platelet Estimate Decreased 01/05/18 06:30 Platelet Comment No clumping noted 01/05/18 06:30 PT with INR 21.90 SEC (9.7-13.0) H 01/05/18 06:30 INR 1.94 (0.82-1.09) H 01/05/18 06:30 PTT (Actin FS) 39.5 SECONDS (26.9-34.4) H 01/05/18 06:30 Sodium 131 mmol/L (136-145) L 01/05/18 06:30 Potassium 4.3 mmol/L (3.5-5.1) 01/05/18 06:30 Chloride 94 mmol/L (98-107) L 01/05/18 06:30 Carbon Dioxide 29 mmol/L (21-32) 01/05/18 06:30 Anion Gap 8 (8-16) 01/05/18 06:30 BUN 26 mg/dL (7-18) H 01/05/18 06:30 Creatinine 1.7 mg/dL (0.7-1.3) H 01/05/18 06:30 Creat Clearance w eGFR 42.21 (>60) 01/05/18 06:30 Random Glucose 100 mg/dL (74-106) 01/05/18 06:30 Lactic Acid 2.0 mmol/L (0.0-2.0) 01/04/18 20:50 Calcium 10.1 mg/dL (8.5-10.1) 01/05/18 06:30 Total Bilirubin 5.9 mg/dL (0.2-1.0) H 01/05/18 06:30 Direct Bilirubin 2.5 mg/dL (0.0-0.2) H 01/04/18 23:30 AST 95 U/L (15-37) H 01/05/18 06:30 ALT 50 U/L (12-78) 01/05/18 06:30 Alkaline Phosphatase 139 U/L (45-117) H 01/05/18 06:30 Ammonia 72.5 umol/L (11-32) H 01/04/18 21:59 Creatine Kinase 24 IU/L (39-308) L 01/04/18 20:50 Troponin I < 0.02 ng/ml (0.00-0.05) D 01/04/18 20:50 Total Protein 9.0 g/dl (6.4-8.2) H 01/05/18 06:30 Albumin 3.6 g/dl (3.4-5.0) 01/05/18 06:30 Lipase 271 U/L (73-393) 01/04/18 20:50 Urine Color Yellow 01/04/18 20:50 Urine Appearance Clear 01/04/18 20:50 Urine pH 7.0 (5.0-8.0) 01/04/18 20:50 Ur Specific [place] 1.006 (1.001-1.035) 01/04/18 20:50 Urine Protein Negative (NEGATIVE) 01/04/18 20:50 Urine Glucose (UA) Negative (NEGATIVE) 01/04/18 20:50 Urine Ketones Negative (NEGATIVE) 01/04/18 20:50 Urine Blood 2+ (NEGATIVE) H 01/04/18 20:50 Urine Nitrite Negative (NEGATIVE) 01/04/18 20:50 Urine Bilirubin Negative (<2.0 mg/dL) 01/04/18 20:50 Urine Urobilinogen Negative mg/dL (0.2-1.0) 01/04/18 20:50 Ur Leukocyte Esterase Negative (NEGATIVE) 01/04/18 20:50 Urine WBC (Auto) 1 /hpf (3-5) 01/04/18 20:50 Urine RBC (Auto) 5 /hpf (0-3) 01/04/18 20:50 Imaging - Results Ultrasound: Report Reviewed ( minimal ascites) Problem List - Problems (1) Hepatic encephalopathy Code(s): K72.90 - HEPATIC FAILURE, UNSPECIFIED WITHOUT COMA (2) Cirrhosis of liver with ascites Code(s): K74.60 - UNSPECIFIED CIRRHOSIS OF LIVER; R18.8 - OTHER ASCITES (3) Alcoholic cirrhosis of liver with ascites Code(s): K70.31 - ALCOHOLIC CIRRHOSIS OF LIVER WITH ASCITES Assessment/Plan Grade 2 hepatic encephalopathy in end-stage liver disease. No overt ascites. No stigmata of recent ongoing gastrointestinal bleeding. hemoglobin has been low, but stable. MELD 22. SBP is not suspected. HRS stable (creatinine has been stable for the last 2 months) Agree with rifaximin, lactulose, Aldactone, Lasix, dietary sodium restriction. Titrate the lactulose to 4-5 bowel movements per day. If unable to take lactulose by mouth, administer [place]. Prognosis poor.
--- NOTE | 2018-01-05 11:52 | EKG ---
Test Reason : Blood Pressure : / mmHG Vent. Rate : 067 BPM Atrial Rate : 067 BPM P-R Int : 172 ms QRS Dur : 100 ms QT Int : 420 ms P-R-T Axes : 053 000 040 degrees QTc Int : 443 ms NORMAL SINUS RHYTHM CANNOT RULE OUT INFERIOR INFARCT , AGE UNDETERMINED ABNORMAL ECG WHEN COMPARED WITH ECG OF 23-NOV-2017 20:06, QT HAS SHORTENED Confirmed by JUAN LUIS WOODWARD, SYDNEE ([id number]) on 01/05/2018 11:51:52 AM Referred By: Confirmed By:SYDNEE MCKNIGHT MD
--- NOTE | 2018-01-05 12:45 | CONSULT ---
Consult - text type - Consultation Consultation Note: Renal Consult for PATRICIA/CKD This claire 52 year old gentleman with PMhx of Alcoholic liver failure w/ ascities and varicies, CKD, Anemia, depression, hx of LE cellulitis presented with AMS and noted to have a Cr of 1.7. PMhx: as above Allergies: NKDA Family hx: NC Social hx: NO T/A/D ROS: as per HPI Home Medications Medication Instructions Recorded Cyanocobalamin [Vitamin B12 -] 100 mcg PO DAILY #30 tablet 07/28/17 Furosemide [Lasix -] 40 mg PO DAILY #30 tablet 07/28/17 Pantoprazole Sodium [Protonix -] 40 mg PO DAILY #30 tablet.ec 07/28/17 Thiamine HCl [Vitamin B1] 100 mg PO DAILY #30 tablet 07/28/17 Rifaximin [Xifaxan -] 550 mg PO BID #60 tablet MDD 2 08/12/17 Sertraline HCl [Zoloft -] 25 mg PO DAILY #30 tablet MDD 1 08/12/17 Hydroxyzine HCl 50 mg PO QID 11/23/17 Magnesium 500 mg PO BID 11/23/17 Spironolactone [Aldactone -] 50 mg PO BID tablet 12/06/17 Folic Acid - 800 mcg PO DAILY 01/04/18 Gabapentin 200 mg PO TID MDD 4 01/04/18 Lactulose (Oral Use) [Cephulac -] 20 gm PO QID 01/04/18 Magnesium Oxide [Mag-Ox -] 500 mg PO BID 01/04/18 Pramipexole Dihydrochloride 0.25 mg PO TID 01/04/18 [Mirapex -] Sucralfate Oral Suspension 1 gm PO QID 01/04/18 [Carafate *Oral Susp*] oxyCODONE HCL [Roxicodone -] 5 mg PO Q6H MDD 4 01/04/18 Vital Signs Temperature 97.6 F 01/05/18 05:00 Pulse Rate 80 01/05/18 05:00 Respiratory Rate 20 01/05/18 05:00 Blood Pressure 124/70 01/05/18 05:00 O2 Sat by Pulse Oximetry (%) 95 01/04/18 22:37 Intake & Output 06/03/18 06/04/18 06/05/18 06/06/18 23:59 23:59 23:59 23:59 Output Total 300 Balance -300 Weight 67.993 kg CBC, BMP 01/05/18 06:30 01/05/18 06:30 Laboratory Tests 07/19/17 08/09/17 08/10/17 14:02 07:00 09:24 Calcium 8.4 L 9.0 Phosphorus 4.1 Magnesium 1.8 1.9 Ammonia Albumin 2.5 L 2.4 L 2.5 L 11/30/17 01/04/18 01/05/18 10:15 21:59 06:30 Calcium 9.2 10.1 Phosphorus Magnesium Ammonia 72.5 H Albumin 4.1 3.6 Current Medications Acetaminophen (Tylenol -) 650 mg PO Q4H PRN PRN Reason: FEVER Cyanocobalamin (Vitamin B12 -) 100 mcg PO DAILY [facility] Last Admin: 01/05/18 10:13 Dose: 100 mcg Folic Acid (Folic Acid -) 1 mg PO DAILY [facility] Last Admin: 01/05/18 10:09 Dose: 1 mg Furosemide (Lasix -) 40 mg PO DAILY [facility] Last Admin: 01/05/18 10:12 Dose: 40 mg Lactulose (Cephulac (Oral Use)) 40 gm PO QID [facility] Last Admin: 01/05/18 10:08 Dose: 40 gm Magnesium Oxide (Mag-Ox -) 400 mg PO BID [facility] Last Admin: 01/05/18 10:09 Dose: 400 mg Pantoprazole Sodium (Protonix -) 40 mg PO DAILY [facility] Last Admin: 01/05/18 10:10 Dose: 40 mg Pramipexole Dihydrochloride (Mirapex -) 0.25 mg PO TID [facility] Last Admin: 01/05/18 06:42 Dose: 0.25 mg Rifaximin (Xifaxan -) 550 mg PO BID [facility] Last Admin: 01/05/18 10:13 Dose: 550 mg Sertraline HCl (Zoloft -) 25 mg PO DAILY [facility] Last Admin: 01/05/18 10:09 Dose: 25 mg Spironolactone (Aldactone -) 50 mg PO BID [facility] Last Admin: 01/05/18 10:12 Dose: 50 mg Sucralfate (Carafate Oral Suspension -) 1 gm PO QID [facility] Last Admin: 01/05/18 10:08 Dose: 1 gm Thiamine HCl (Vitamin B1 -) 100 mg PO DAILY [facility] Last Admin: 01/05/18 10:09 Dose: 100 mg 52 year old gentleman with PMhx of Alcoholic liver failure w/ ascities and varicies, CKD, Anemia, depression, hx of LE cellulitis presented with AMS and noted to have a Cr of 1.7. #PATRICIA/CKD (Cr was abound 1.6-1.8 last admission, was 1.2 in Sep) #Hyponatremia in setting of Liver failure #AMS r/o hepatic encepholopathy #Anemia/Thrombocytopenia Renal function unchanged from prior admission, would not start IVF at this time pt appears evolemic would continue Lasix and Aldactone at present doses would restrict free water to 1L daily continue Lactulose as per GI check iron studies, no acute indication for transfusion overall prognosis is poor Will follow Ronaldo Gonzalez DO
[2018-01-06] MEDS: PRAMIPEXOLE DIHYDROCHLORIDE 0.25 MG TABLET PO SCH (06:14)
[2018-01-06 10:52] VITALS: BP 136/77; PULSE 110; TEMP 98.3
[2018-01-06] MEDS: SUCRALFATE 1 GM/10 ML UNIT DOSE CUPS PO SCH (10:52)
[2018-01-06] MEDS: FUROSEMIDE 40 MG TABLET (FP) PO SCH (10:52)
[2018-01-06] MEDS: SERTRALINE HCL 25 MG TABLET (FP) PO SCH (10:52)
[2018-01-06] MEDS: LACTULOSE 20 GM/30 ML UDC (FOR ORAL USE ONLY) PO SCH (10:52)
[2018-01-06] MEDS: MAGNESIUM OXIDE 400 MG TABLET (FP) PO SCH (10:53)
[2018-01-06] MEDS: SPIRONOLACTONE 25 MG TABLET (FP) PO SCH (10:53)
[2018-01-06] MEDS: FOLIC ACID 1 MG TABLET (FP) PO SCH (10:53)
[2018-01-06] MEDS: THIAMINE HCL 100 MG TABLET (FP) PO SCH (10:53)
[2018-01-06] MEDS: PANTOPRAZOLE 40 MG TABLET (FP) PO SCH (10:53)
[2018-01-06] MEDS: RIFAXIMIN 550 MG TABLET (UD) PO SCH (10:54)
[2018-01-06] MEDS: CYANOCOBALAMIN (VITAMIN B-12) 100 MCG TABLET PO SCH (10:54)
--- NOTE | 2018-01-06 11:21 | PN ---
Progress Note, Physician Chief Complaint: frequent falls AMS History of Present Illness: sitting in a wheelchair in the hallway with [employer] extremely confused, hallucinating recognizes me, knows wifes name, not oriented to time and place. - Current Medication List Current Medications: Active Medications Acetaminophen (Tylenol -) 650 mg PO Q4H PRN PRN Reason: FEVER Cyanocobalamin (Vitamin B12 -) 100 mcg PO DAILY [facility] Last Admin: 01/06/18 10:54 Dose: 100 mcg Folic Acid (Folic Acid -) 1 mg PO DAILY [facility] Last Admin: 01/06/18 10:53 Dose: 1 mg Furosemide (Lasix -) 40 mg PO DAILY [facility] Last Admin: 01/06/18 10:52 Dose: 40 mg Lactulose (Cephulac (Oral Use)) 40 gm PO QID [facility] Last Admin: 01/06/18 10:52 Dose: 40 gm Magnesium Oxide (Mag-Ox -) 400 mg PO BID [facility] Last Admin: 01/06/18 10:53 Dose: 400 mg Pantoprazole Sodium (Protonix -) 40 mg PO DAILY [facility] Last Admin: 01/06/18 10:53 Dose: 40 mg Pramipexole Dihydrochloride (Mirapex -) 0.25 mg PO TID [facility] Last Admin: 01/06/18 06:14 Dose: 0.25 mg Rifaximin (Xifaxan -) 550 mg PO BID [facility] Last Admin: 01/06/18 10:54 Dose: 550 mg Sertraline HCl (Zoloft -) 25 mg PO DAILY [facility] Last Admin: 01/06/18 10:52 Dose: 25 mg Spironolactone (Aldactone -) 50 mg PO BID [facility] Last Admin: 01/06/18 10:53 Dose: 50 mg Sucralfate (Carafate Oral Suspension -) 1 gm PO QID [facility] Last Admin: 01/06/18 10:52 Dose: 1 gm Thiamine HCl (Vitamin B1 -) 100 mg PO DAILY [facility] Last Admin: 01/06/18 10:53 Dose: 100 mg - Objective Vital Signs: Vital Signs Temperature 98.3 F 01/06/18 10:49 Pulse Rate 110 H 01/06/18 10:49 Respiratory Rate 18 01/06/18 10:49 Blood Pressure 136/77 01/06/18 10:49 O2 Sat by Pulse Oximetry (%) 95 01/05/18 21:00 Constitutional: Yes: Anxious, Mild Distress Eyes: Yes: Sclera Icterus Cardiovascular: Yes: Regular Rate and Rhythm, Murmur (Grade IV/) Respiratory: Yes: Regular Musculoskeletal: Yes: Muscle Weakness Neurological: Yes: Alert Labs: CBC, BMP 01/05/18 06:30 01/05/18 06:30 INR, PTT INR 1.94 (0.82-1.09) H 01/05/18 06:30 Problem List - Problems (1) Alcoholic cirrhosis Code(s): K70.30 - ALCOHOLIC CIRRHOSIS OF LIVER WITHOUT ASCITES Qualifiers: Ascites presence: with ascites Qualified Code(s): K70.31 - Alcoholic cirrhosis of liver with ascites (2) Altered mental status Code(s): R41.82 - ALTERED MENTAL STATUS, UNSPECIFIED Qualifiers: Altered mental status type: unspecified Qualified Code(s): R41.82 - Altered mental status, unspecified (3) Anemia Code(s): D64.9 - ANEMIA, UNSPECIFIED Qualifiers: (4) Hepatic encephalopathy Code(s): K72.90 - HEPATIC FAILURE, UNSPECIFIED WITHOUT COMA (5) Hepatorenal syndrome Code(s): K76.7 - HEPATORENAL SYNDROME Assessment/Plan Spoke to Dr Karl nye [facility] transplant center, pt MELD score of 28, pt to be transferred to [facility].
--- NOTE | 2018-01-06 12:22 | PN ---
Progress Note, Physician History of Present Illness: Clinically the same. No acute events overnight. - Current Medication List Current Medications: Active Medications Acetaminophen (Tylenol -) 650 mg PO Q4H PRN PRN Reason: FEVER Cyanocobalamin (Vitamin B12 -) 100 mcg PO DAILY [facility] Last Admin: 01/06/18 10:54 Dose: 100 mcg Folic Acid (Folic Acid -) 1 mg PO DAILY [facility] Last Admin: 01/06/18 10:53 Dose: 1 mg Furosemide (Lasix -) 40 mg PO DAILY [facility] Last Admin: 01/06/18 10:52 Dose: 40 mg Lactulose (Cephulac (Oral Use)) 40 gm PO QID [facility] Last Admin: 01/06/18 10:52 Dose: 40 gm Magnesium Oxide (Mag-Ox -) 400 mg PO BID [facility] Last Admin: 01/06/18 10:53 Dose: 400 mg Pantoprazole Sodium (Protonix -) 40 mg PO DAILY [facility] Last Admin: 01/06/18 10:53 Dose: 40 mg Pramipexole Dihydrochloride (Mirapex -) 0.25 mg PO TID [facility] Last Admin: 01/06/18 06:14 Dose: 0.25 mg Rifaximin (Xifaxan -) 550 mg PO BID [facility] Last Admin: 01/06/18 10:54 Dose: 550 mg Sertraline HCl (Zoloft -) 25 mg PO DAILY [facility] Last Admin: 01/06/18 10:52 Dose: 25 mg Spironolactone (Aldactone -) 50 mg PO BID [facility] Last Admin: 01/06/18 10:53 Dose: 50 mg Sucralfate (Carafate Oral Suspension -) 1 gm PO QID [facility] Last Admin: 01/06/18 10:52 Dose: 1 gm Thiamine HCl (Vitamin B1 -) 100 mg PO DAILY [facility] Last Admin: 01/06/18 10:53 Dose: 100 mg - Objective Vital Signs: Vital Signs Temperature 98.3 F 01/06/18 10:49 Pulse Rate 110 H 01/06/18 10:49 Respiratory Rate 18 01/06/18 10:49 Blood Pressure 136/77 01/06/18 10:49 O2 Sat by Pulse Oximetry (%) 95 01/05/18 21:00 Constitutional: Yes: Calm Eyes: Yes: Sclera Icterus Neurological: Yes: Confusion Labs: CBC, BMP 01/05/18 06:30 01/05/18 06:30 INR, PTT INR 1.94 (0.82-1.09) H 01/05/18 06:30 Laboratory Last Values WBC 8.0 K/mm3 (4.0-10.0) 01/05/18 06:30 RBC 2.49 M/mm3 (4.00-5.60) L 01/05/18 06:30 Hgb 8.5 GM/dL (11.7-16.9) L 01/05/18 06:30 Hct 24.5 % (35.4-49) L 01/05/18 06:30 MCV 98.1 fl (80-96) H 01/05/18 06:30 MCH 34.3 pg (25.7-33.7) H 01/05/18 06:30 MCHC 35.0 g/dl (32.0-35.9) 01/05/18 06:30 RDW 18.1 % (11.9-15.9) H 01/05/18 06:30 Plt Count 80 K/MM3 (134-434) L 01/05/18 06:30 MPV 9.5 fl (7.5-11.1) 01/05/18 06:30 Absolute Neuts (auto) 5.1 # 01/05/18 06:30 Neutrophils % 63.7 % (42.8-82.8) 01/05/18 06:30 Lymphocytes % 23.7 % (8-40) 01/05/18 06:30 Monocytes % 8.0 % (3.8-10.2) 01/05/18 06:30 Eosinophils % 4.1 % (0-4.5) 01/05/18 06:30 Basophils % 0.5 % (0-2.0) 01/05/18 06:30 Nucleated RBC % 0 % (0-0) 01/05/18 06:30 Platelet Estimate Decreased 01/05/18 06:30 Platelet Comment No clumping noted 01/05/18 06:30 PT with INR 21.90 SEC (9.7-13.0) H 01/05/18 06:30 INR 1.94 (0.82-1.09) H 01/05/18 06:30 PTT (Actin FS) 39.5 SECONDS (26.9-34.4) H 01/05/18 06:30 Sodium 131 mmol/L (136-145) L 01/05/18 06:30 Potassium 4.3 mmol/L (3.5-5.1) 01/05/18 06:30 Chloride 94 mmol/L (98-107) L 01/05/18 06:30 Carbon Dioxide 29 mmol/L (21-32) 01/05/18 06:30 Anion Gap 8 (8-16) 01/05/18 06:30 BUN 26 mg/dL (7-18) H 01/05/18 06:30 Creatinine 1.7 mg/dL (0.7-1.3) H 01/05/18 06:30 Creat Clearance w eGFR 42.21 (>60) 01/05/18 06:30 Random Glucose 100 mg/dL (74-106) 01/05/18 06:30 Lactic Acid 2.0 mmol/L (0.0-2.0) 01/04/18 20:50 Calcium 10.1 mg/dL (8.5-10.1) 01/05/18 06:30 Total Bilirubin 5.9 mg/dL (0.2-1.0) H 01/05/18 06:30 Direct Bilirubin 2.5 mg/dL (0.0-0.2) H 01/04/18 23:30 AST 95 U/L (15-37) H 01/05/18 06:30 ALT 50 U/L (12-78) 01/05/18 06:30 Alkaline Phosphatase 139 U/L (45-117) H 01/05/18 06:30 Ammonia 72.5 umol/L (11-32) H 01/04/18 21:59 Creatine Kinase 24 IU/L (39-308) L 01/04/18 20:50 Troponin I < 0.02 ng/ml (0.00-0.05) D 01/04/18 20:50 Total Protein 9.0 g/dl (6.4-8.2) H 01/05/18 06:30 Albumin 3.6 g/dl (3.4-5.0) 01/05/18 06:30 Lipase 271 U/L (73-393) 01/04/18 20:50 Urine Color Yellow 01/04/18 20:50 Urine Appearance Clear 01/04/18 20:50 Urine pH 7.0 (5.0-8.0) 01/04/18 20:50 Ur Specific [place] 1.006 (1.001-1.035) 01/04/18 20:50 Urine Protein Negative (NEGATIVE) 01/04/18 20:50 Urine Glucose (UA) Negative (NEGATIVE) 01/04/18 20:50 Urine Ketones Negative (NEGATIVE) 01/04/18 20:50 Urine Blood 2+ (NEGATIVE) H 01/04/18 20:50 Urine Nitrite Negative (NEGATIVE) 01/04/18 20:50 Urine Bilirubin Negative (<2.0 mg/dL) 01/04/18 20:50 Urine Urobilinogen Negative mg/dL (0.2-1.0) 01/04/18 20:50 Ur Leukocyte Esterase Negative (NEGATIVE) 01/04/18 20:50 Urine WBC (Auto) 1 /hpf (3-5) 01/04/18 20:50 Urine RBC (Auto) 5 /hpf (0-3) 01/04/18 20:50 Problem List - Problems (1) Hepatic encephalopathy Code(s): K72.90 - HEPATIC FAILURE, UNSPECIFIED WITHOUT COMA (2) Cirrhosis of liver with ascites Code(s): K74.60 - UNSPECIFIED CIRRHOSIS OF LIVER; R18.8 - OTHER ASCITES (3) Alcoholic cirrhosis of liver with ascites Code(s): K70.31 - ALCOHOLIC CIRRHOSIS OF LIVER WITH ASCITES Assessment/Plan Grade 2 hepatic encephalopathy in end-stage liver disease. No overt ascites. No stigmata of recent, ongoing gastrointestinal bleeding. Hemoglobin has been low, but stable. MELD 22. SBP is not suspected. HRS stable (creatinine has been stable for the last 2 months) Agree with rifaximin, lactulose, Aldactone, Lasix, dietary sodium restriction. Titrate the lactulose to 4-5 bowel movements per day. If unable to take lactulose by mouth, administer [place]. Prognosis poor.
== END 2018-01-06 13:19 | disposition short-term general hospital (02) | DRG 442 ==
LOC: JER 17:44 → JERBED 22:37 → J7W 01-05 00:39
PROVIDERS: ADMIT Internal Medicine; ATTEND Family Medicine
DX: K72.90 Hepatic failure, unspecified without coma (principal); E87.1 Hypo-osmolality and hyponatremia; N17.9 Acute kidney failure, unspecified; R64 Cachexia; F32.9 Major depressive disorder, single episode, unspecified; D64.9 Anemia, unspecified; D69.6 Thrombocytopenia, unspecified; M54.9 Dorsalgia, unspecified; R41.82 Altered mental status, unspecified; K70.31 Alcoholic cirrhosis of liver with ascites; N18.9 Chronic kidney disease, unspecified; Z68.24 Body mass index [BMI] 24.0-24.9, adult; I12.9 Hypertensive chronic kidney disease with stage 1 through stage 4 chronic kidney disease, or unspecified chronic kidney disease
CPT/HCPCS: 36415; 70450-TC; 71045-TC-FY; 76705-TC; 80053; 81003; 81015; 82140; 82248; 82550; 83605; 83690; 84484; 85025; 85610; 85730; 87040; 93005; 93010; 97116-GP; 97161-GP; 99285-25; J7030

== ENCOUNTER 2019-04-20 11:28 | Emergency (ER) | payer OTHER, BC ==
[2019-04-20 12:00] VITALS: BMI 26.6
--- NOTE | 2019-04-20 12:13 | PDOC ---
History of Present Illness - General Chief Complaint: Injury Stated Complaint: Lightheaded/FALL Time Seen by Provider: 04/20/19 12:12 - History of Present Illness Initial Comments: 04/20/19 13:08 HPI: 54 y/o M with hx of liver cirrhosis and CKD s/p liver and kidney transplant 2017, IDDM, HTN presenting by EMS following an episode of weakness that resulted in a fall. He stated he was fasting this morning for his routine bloodwork but still noted his glucose elevated to 350s and took 7units of his shortacting insulin despite fasting this morning. He got to the grocery store and felt LH and dehydrated. His normal glucose reads are 150-200. He got out of his car and the LH worsened and he fell forward on to his hands and knees. He attempted to get up again but was not able to. He denies any LOC, chest pain, SOB, palpitations, change in vision, incontinence, seizure, fever, chills, abd pain, n/v PMHx: as noted above ROS: as noted SHx: Denies tobacco use; reports 1/2 pint every few days; no rec drugs Allergies: NKDA Transplant [facility]: Mamie Ronalddiana [phone] or [phone] Carmela Sepulveda () [phone] ROS: GENERAL/CONSTITUTIONAL: No fever or chills. No weakness. HEAD, EYES, EARS, NOSE AND THROAT: No change in vision. No ear pain or discharge. No sore throat. CARDIOVASCULAR: No chest pain or shortness of breath RESPIRATORY: No cough, wheezing, or hemoptysis. GASTROINTESTINAL: No nausea, vomiting, diarrhea or constipation. GENITOURINARY: No dysuria, frequency, or change in urination. MUSCULOSKELETAL: No joint or muscle swelling or pain. No neck or back pain. SKIN: No rash NEUROLOGIC: No headache, vertigo, loss of consciousness, or change in strength/ sensation. ENDOCRINE: No increased thirst. No abnormal weight change HEMATOLOGIC/LYMPHATIC: No anemia, easy bleeding, or history of blood clots. ALLERGIC/IMMUNOLOGIC: No hives or skin allergy. PE: GENERAL: Awake, alert, and fully oriented, no acute distress HEAD: mild edema of the right cheek with no overlying erythema and no skin breakdown or laceration, no TTP EYES: EOMI, sclera anicteric, conjunctiva clear ENT: Auricles normal inspection, hearing grossly normal, nares patent, oropharynx clear without exudates. Moist mucosa NECK: Normal ROM, no lymphadenopathy, no midline tenderness LUNGS: No increased work of breathing, symmetrical chest rise, clear to auscultation bilaterally, no wheezes, crackles or rhonchi HEART: Regular rate and rhythm, normal S1 and S2, no murmurs, peripheral pulses 2+ and equal bilaterally. ABDOMEN: Significant scarring from surgery, soft, nondistended, nontender, normoactive bowel sounds. No guarding, no rebound. No masses EXTREMITIES: Normal range of motion, no edema. Right hand with skin tear over 4th/5th MCP, Left hand with mild abrasions over 3rd-5th MCP, Left knee with skin tear NEUROLOGICAL: Cranial nerves II through XII grossly intact. Normal speech, normal gait, no focal sensorimotor deficits SKIN: Warm, Dry, normal turgor, no rashes or lesions noted Past History - Past Medical History Allergies/Adverse Reactions: Allergies Allergy/AdvReac Type Severity Reaction Status Date / Time No Known Allergies Allergy Verified 04/20/19 12:01 Home Medications: Ambulatory Orders Cyanocobalamin [Vitamin B12 -] 100 mcg PO DAILY #30 tablet 07/28/17 Furosemide [Lasix -] 40 mg PO DAILY #30 tablet 07/28/17 Pantoprazole Sodium [Protonix -] 40 mg PO DAILY #30 tablet.ec 07/28/17 Thiamine HCl [Vitamin B1] 100 mg PO DAILY #30 tablet 07/28/17 Rifaximin [Xifaxan -] 550 mg PO BID #60 tablet MDD 2 08/12/17 Sertraline HCl [Zoloft -] 25 mg PO DAILY #30 tablet MDD 1 08/12/17 Hydroxyzine HCl 50 mg PO QID 11/23/17 Magnesium 500 mg PO BID 11/23/17 Spironolactone [Aldactone -] 50 mg PO BID tablet 12/06/17 Folic Acid - 800 mcg PO DAILY 01/04/18 Gabapentin 200 mg PO TID MDD 4 01/04/18 Lactulose (Oral Use) [Cephulac -] 20 gm PO QID 01/04/18 Magnesium Oxide [Mag-Ox -] 500 mg PO BID 01/04/18 Pramipexole Dihydrochloride [Mirapex -] 0.25 mg PO TID 01/04/18 Sucralfate Oral Suspension [Carafate *Oral Susp*] 1 gm PO QID 01/04/18 oxyCODONE HCL [Roxicodone -] 5 mg PO Q6H MDD 4 01/04/18 Anemia: Yes Asthma: No Cancer: No Cardiac Disorders: No CVA: No COPD: No CHF: No DVT: No Dementia: No Diabetes: No GI Disorders: Yes (pancreatitis) Disorders: No HTN: Yes Hypercholesterolemia: No Kidney Stones: No Liver Disease: Yes (CIRROSIS & ASCITES) Psychiatric Problems: Yes (alcohol) Seizures: No Thyroid Disease: No - Surgical History Abdominal Surgery: Yes (liver transplant) - Reproductive History Testicular Surgery: No - Immunization History Immunization Up to Date: Yes - Suicide/Smoking/Psychosocial Hx Smoking History: Unknown if ever smoked Have you smoked in the past 12 months: No 'Breaking Loose' booklet given: 07/22/17 Hx Alcohol Use: No Drug/Substance Use Hx: No Substance Use Type: Alcohol Hx Substance Use Treatment: No *Physical Exam - Vital Signs Last Vital Signs Temp Pulse Resp BP Pulse Ox 97.6 F 88 16 108/66 98 04/20/19 11:41 04/20/19 11:41 04/20/19 11:41 04/20/19 11:41 04/20/19 11:41 ED Treatment Course - LABORATORY CBC & Chemistry Diagram: 04/20/19 14:31 04/20/19 14:38 - ADDITIONAL ORDERS Additional order review: Laboratory Results 04/20/19 11:57 POC Glucometer 113 04/20/19 11:57 POC Glucometer 113 Medical Decision Making - Medical Decision Making 04/20/19 13:20 54 y/o M with hx of liver cirrhosis and CKD s/p liver and kidney transplant 2017, IDDM, HTN presenting by EMS following an episode of weakness that resulted in a fall after taking his shortacting insulin while fasting. Found to have glucose 113. VSS, AF. PE notable for mild abrasions and skin tears over right and left hands as well left knee. DDx includes hypoglyemic episode, electrolyte imbalance, dehydration, arrhythmia, ACS -cbc, cmp, cardiac profile -EKG -IVF 04/20/19 15:47 Labs significant for Total bili 1.1, AST 402, ALT 264, alk phos 367 Discussed with Mamie Rojas from [facility] and patient LFTs elevated from previous visit and requesting transfer to [facility] for elevated LFTs (concern for alcohol drinking) and presyncope Patient understands plan Patient accepted to Dr Raza in ED for ED to ED tx Will add on XR right knee, serum alcohol level, utox *DC/Admit/Observation/Transfer Diagnosis at time of Disposition: Pre-syncope, LFT elevation - Discharge Dispostion Disposition: TRANSFER ACUTE CARE/OTHER HOSP Condition at time of disposition: Stable - Referrals Referrals: Prakash Ashley MD [Primary Care Provider] - - Patient Instructions - Post Discharge Activity - Transfer to Acute Care Facility Receiving Facility: [facility]. Accepting Physician:: Dr Raza in the ED
[2019-04-20] MEDS ORDERED: SODIUM CHLORIDE 1,000 ML IV STA (12:43)
[2019-04-20] MEDS ORDERED: ACETAMINOPHEN 325 MG TABLET (FP) PO ONE (13:00)
[2019-04-20] MEDS ORDERED: ACETAMINOPHEN 325 MG TABLET (FP) ONE (13:15)
--- NOTE | 2019-04-20 13:54 | PDOC ---
Attending Attestation - Resident Resident Name: Angel Foster - ED Attending Attestation I have performed the following: I have examined & evaluated the patient, The case was reviewed & discussed with the resident, I agree w/resident's findings & plan, Exceptions are as noted - HPI HPI: 04/20/19 13:45 54 M with h/o liver cirrhosis and CKD s/p liver and kidney transplant 06/2018, IDDM, HTN, presenting to ED with near-syncope and fall. Pt states that he was fasting this morning for bloodwork. He notes that his sugar was high this morning, in the 300s, so he gave himself 7u of insulin. Pt did not eat anything afterwards and believes his sugar dropped, causing him to feel very lightheaded. Pt denies LOC but states that he felt so weak that he fell onto his knees and hands. Pt now feels back to baseline. Denies any complaints other than R knee pain. - Physicial Exam PE: 04/20/19 13:54 "GENERAL: Awake, alert, and fully oriented, in no acute distress. HEAD: No signs of trauma EYES: PERRLA, EOMI, sclera anicteric, conjunctiva clear ENT: Auricles normal inspection, hearing grossly normal, nares patent, oropharynx clear without exudates. Moist mucosa NECK: Nontender, no stepoffs, Normal ROM, supple, no lymphadenopathy, JVD, or masses LUNGS: Breath sounds equal, clear to auscultation bilaterally. No wheezes, and no crackles HEART: Regular rate and rhythm, normal S1 and S2, no murmurs, rubs or gallops ABDOMEN: Soft, nontender, normoactive bowel sounds. No guarding, no rebound. No masses EXTREMITIES: + Abrasions to bilateral knuckles, Abrasion to bilateral knees, Normal range of motion, no edema. No clubbing or cyanosis. No cords, erythema, or tenderness NEUROLOGICAL: Cranial nerves II through XII intact. 5/5 strength and sensation in all extremities, Normal speech, normal gait, normal cerebellar function SKIN: Warm, Dry, normal turgor, no rashes or lesions noted. - Medical Decision Making 04/20/19 14:00 54 M with lightheadedness and fall, likely 2/2 hypoglycemia in setting of taking insulin without eating. Pt now asympomatic. Will r/o ACS. Also consider infectious process, as pt is immunocompromised. - Labs, trop - CXR, UA 04/20/19 15:45 Labs notable for elevated LFTs Case discussed with [facility] transplant team, who recommend txfer to [facility] for further management.
[2019-04-20 15:09] LABS: BASO % 0.8 % (0-2.0); EOS % 0.3 % (0-4.5); HEMATOCRIT 37.8 % (35.4-49); LYMPH % 15.3 % (8-40); MCH 33.7 pg (25.7-33.7); MCHC 34.3 g/dl (32.0-35.9); MEAN CELL VOLUME 98.2 fl (80-96); MEAN PLT VOLUME 7.5 fl (7.5-11.1); MONO % 9.4 % (3.8-10.2); NEUT % 74.2 % (42.8-82.8); PLATELET COUNT 128 K/MM3 (134-434); RBC 3.85 M/mm3 (4.00-5.60); RDW 13.9 % (11.9-15.9); WHITE BLOOD COUNT 8.8 K/mm3 (4.0-10.0)
[2019-04-20 15:30] LABS: INR 1.05 (0.83-1.09); PROTHROMBIN TIME (PATIENT) 12.4 SEC (9.7-13.0)
[2019-04-20 15:31] LABS: ALBUMIN 2.6 g/dl (3.4-5.0); ALK PHOS 367 U/L (45-117); ANION GAP 12 MMOL/L (8-16); BILIRUBIN,TOTAL 1.1 mg/dL (0.2-1); BLOOD UREA NITROGEN 36.4 mg/dL (7-18); CALCIUM 8.3 mg/dL (8.5-10.1); CHLORIDE 93 mmol/L (98-107); CO2 29 mmol/L (21-32); CREATININE 1.9 mg/dL (0.55-1.3); GLUCOSE,RANDOM 207 mg/dL (74-106); POTASSIUM 3.9 mmol/L (3.5-5.1); SGOT/AST 402 U/L (15-37); SGPT/ALT 264 U/L (13-61); SODIUM 133 mmol/L (136-145); TOT PROT 5.5 g/dl (6.4-8.2)
--- NOTE | 2019-04-20 15:46 | EKG ---
Test Reason : Blood Pressure : / mmHG Vent. Rate : 088 BPM Atrial Rate : 088 BPM P-R Int : 134 ms QRS Dur : 086 ms QT Int : 378 ms P-R-T Axes : 059 -03 033 degrees QTc Int : 457 ms NORMAL SINUS RHYTHM POSSIBLE LEFT ATRIAL ENLARGEMENT CANNOT RULE OUT INFERIOR INFARCT (CITED ON OR BEFORE 04-JAN-2018) ABNORMAL ECG WHEN COMPARED WITH ECG OF 04-JAN-2018 18:06, NO SIGNIFICANT CHANGE WAS FOUND Confirmed by DAVID RIZZO MD ([id number]) on 04/20/2019 3:46:03 PM Referred By: Confirmed By:DAVID RIZZO MD
[2019-04-20 16:27] VITALS: BP 110/76
[2019-04-20 18:35] VITALS: PULSE 86; TEMP 98.1
== END 2019-04-20 18:36 | disposition short-term general hospital (02) ==
LOC: JER 11:28
DX: R55 Syncope and collapse (principal); R94.5 Abnormal results of liver function studies; S60.512A Abrasion of left hand, initial encounter; S60.511A Abrasion of right hand, initial encounter; S80.212A Abrasion, left knee, initial encounter; W18.39XA Other fall on same level, initial encounter; Y93.89 Activity, other specified; Y92.512 Supermarket, store or market as the place of occurrence of the external cause; Y99.8 Other external cause status; E11.9 Type 2 diabetes mellitus without complications; Z79.4 Long term (current) use of insulin; I10 Essential (primary) hypertension; Z94.0 Kidney transplant status; Z94.4 Liver transplant status
CPT/HCPCS: 36415; 71046-TC-FY; 73562-TC-RT-FY; 80053; 80307; 82550; 82553; 82962; 84484; 85025; 85610; 93005; 93010; 99285-25